=== PATIENT | male | born 1965 | race Caucasian/White ===

== ENCOUNTER 2017-04-20 16:00 | Inpatient (IN) | payer SELFPAY ==
[2017-04-20] VITALS (7 sets, daily range): BP systolic 123–165; BP diastolic 46–101
[~2017-04-20] VITALS: Ht 177.8 cm; Wt 87.2 kg
[~2017-04-20 16:00] MED LIST: AMIT100T PO; AMOX1TAB61 PO; ATOR20TA PO; Aspirin PO; CARV25TA2 PO; CLOP75TA57 PO; CYCL10TA2 PO; FLEXERIL; GABA-586 PO; GLIM4TAB2 PO; HYDR-2161 PO; HYDR-2680 PO; MORP30TA83 PO; OLME1TAB29 PO; PRED-220 PO; PREG75CA PO; ROPI2TAB4 PO; SITA100T PO; SITA1TAB7 PO; TEMA30CA PO; TIZA4TAB PO; TRAZ150T49 PO
[2017-04-20 16:25] LABS: BASO % 0 % (0-3); EOS % 0 % (0-3); HEMATOCRIT 44.8 % (39.0-53.0); LYMPH # 1.1 x10^3/uL (1.0-4.8); LYMPH % 14 % (24-48); MEAN CORPUSCULAR HEMOGLOBIN 29 pg (25-35); MEAN CORPUSCULAR HGB CONC 33 g/dL (31-37); MEAN CORPUSCULAR VOLUME 85 fL (79-100); MONO % 5 % (0-9); NEUT % 80 % (31-73); PLATELET COUNT 252 x10^3/uL (140-400); RED BLOOD COUNT 5.25 x10^6/uL (4.30-5.70); WHITE BLOOD COUNT 7.9 x10^3/uL (4.0-11.0)
[2017-04-20 16:35] LABS: PROTHROMBIN TIME PATIENT 12.8 SEC (11.7-14.0)
[2017-04-20] MEDS: NITROGLYCERIN SUBLINGUAL 0.4 MG BOTTLE OF 25. SL PRN ×2 (16:42→16:57)
[2017-04-20] MEDS: MORPHINE SULFATE 4 MG/ML DISP.SYRIN. IV/SQ PRN ×2 (16:43→17:30)
[2017-04-20] MEDS ORDERED: ASPIRIN 325 MG TABLET PO ONE (16:45)
[2017-04-20 16:56] LABS: ALBUMIN 2.8 g/dL (3.4-5.0); ALBUMIN/GLOBULIN RATIO 0.7 (1.0-1.7); CALCIUM 8.8 mg/dL (8.5-10.1); CREATININE 1.6 mg/dL (0.7-1.3); MAGNESIUM 1.9 mg/dL (1.8-2.4); POTASSIUM 3.8 mmol/L (3.5-5.1); TOTAL BILIRUBIN 0.4 mg/dL (0.2-1.0); TOTAL PROTEIN 6.9 g/dL (6.4-8.2)
--- NOTE | 2017-04-20 16:58 | RAD ---
Head CT without contrast History:Severe hypertension, headache for a month Technique: Noncontrast CT imaging was acquired of the head. [facility] Compliance Statement: One or more of the following individualized dose reduction techniques were utilized for this examination: 1. Automated exposure control 2. Adjustment of the mA and/or kV according to patient size 3. Use of iterative reconstruction technique Comparison: None Findings: The ventricles, sulci, and cisterns are within normal limits in size and configuration. There is old lacunar infarct left basal ganglia extending to harris radiata. There is no significant mass-effect, midline shift, or abnormal extra-axial fluid collection. There is no evidence of acute parenchymal or extraaxial hemorrhage. The visualized paranasal sinuses and mastoid air cells are aerated. No significant osseous abnormality is identified. Impression: 1. No acute intracranial hemorrhage is identified. 2. There is old lacunar infarct of the left basal ganglia extending to the harris radiata.
[2017-04-20] MEDS ORDERED: INSULIN REGULAR VIAL 150 UNIT in 0.9 % SODIUM CHLORIDE 150ML 150 ML IV PRN (17:30)
[2017-04-20] MEDS ORDERED: NITROGLYCERIN SUBLINGUAL 0.4 MG BOTTLE OF 25. SL PRN (17:45)
[2017-04-20] MEDS ORDERED: POTASSIUM CHLORIDE 20 MEQ TABLET.ER. PO PRN ×2 (17:45)
[2017-04-20] MEDS ORDERED: ONDANSETRON PF 4 MG/2 ML VIAL. IV PRN (17:45)
[2017-04-20] MEDS ORDERED: MORPHINE SULFATE 2 MG/ML DISP.SYRIN. IV PRN (17:45)
[2017-04-20] MEDS ORDERED: POTASSIUM CHLORIDE 20 MEQ TABLET.ER. PO ONE (18:00)
[2017-04-20] MEDS ORDERED: IV NORMAL SALINE 1000ML BAG 1,000 ML IV SCH ×2 (18:00→19:00)
--- NOTE | 2017-04-20 18:24 | PHYS DOC ---
Past Medical History Past Medical History: Arthritis, CHF, Diabetes-Type II, Hypertension Additional Past Medical Histor: HERNIATED DISC IN BACK, Past Surgical History: Tonsillectomy, Other Additional Past Surgical Histo: ANKLE Alcohol Use: None Drug Use: None Adult General Chief Complaint Chief Complaint: CHEST WALL PAIN HPI HPI Patient is a 51 year old male who presents with chest pain. The patient reports onset of symptoms about 1 month ago, has had intermittent chest pain with exertion, most recent onset today just prior to arrival here. Pain is pressure like, substernal, radiates to right shoulder. Reports associated shortness of breath, denies nausea or diaphoresis. Denies fevers/chills, cough , lower extremity pain/swelling. Denies headache, extremity numbness/weakness. He has history of hypertension & diabetes, unable to afford prescription medications for the past 2 weeks per the patient. He has history of CAD s/p multiple cardiac stents. He does not currently follow with a PCP. Flyer Maker is Dr. Erwin. Review of Systems Review of Systems Constitutional: Denies fever or chills Eyes: Denies change in visual acuity HENT: Denies nasal congestion or sore throat Respiratory: Denies cough or shortness of breath Cardiovascular: Reports chest pain, denies edema GI: Denies abdominal pain, nausea, vomiting, bloody stools or diarrhea : Denies dysuria or hematuria Musculoskeletal: Denies back pain or joint pain Integument: Denies rash or skin lesions Neurologic: Denies headache, focal weakness or sensory changes All other systems were reviewed and found to be within normal limits, except as documented in this note. Current Medications Current Medications Current Medications Medications (Trade) Dose Ordered Sig/Jerri Start Time Stop Time Status Last Admin Dose Admin Aspirin (Vibha Aspirin) 325 mg 1X ONCE 04/20/17 16:45 04/20/17 16:46 DC 04/20/17 16:42 325 MG Morphine Sulfate 4 mg PRN Q15MIN PRN 04/20/17 16:30 04/21/17 16:29 04/20/17 17:30 4 MG Nicardipine HCl 50 mg/Sodium Chloride 270 ml @ 0 mls/hr CONT PRN 04/20/17 16:45 04/20/17 16:52 5 MLS/HR Nitroglycerin (Nitrostat) 0.4 mg PRN Q5MIN PRN 04/20/17 16:30 04/20/17 16:57 0.4 MG Allergies Allergies Allergies Coded Allergies Type Severity Reaction Last Updated Verified No Known Drug Allergies 07/22/14 No Physical Exam Physical Exam Constitutional: Well developed, well nourished, no acute distress, non-toxic appearance. HENT: Normocephalic, atraumatic, bilateral external ears normal, oropharynx moist, nose normal. Eyes: PERRLA, EOMI, conjunctiva normal, no discharge. Neck: supple, no stridor. Cardiovascular: RRR, no murmurs, no edema. Lungs & Thorax: LCTAB, no wheezing, no respiratory distress. Abdomen: soft, nontender, nondistended. Skin: Warm, dry, no erythema, no rash. Back: No tenderness. Extremities: No tenderness, no edema. no calf tenderness or swelling. Neurologic: Alert and oriented X 3, CN2-12 grossly intact, symmetric strength/ sensation to upper & lower extremities, no focal deficits noted. Psychologic: Affect normal, judgement normal, mood normal. Current Patient Data Vital Signs Vital Signs Date Time Temp Pulse Resp B/P (MAP) Pulse Ox O2 Delivery O2 Flow Rate FiO2 04/20/17 17:12 Room Air 04/20/17 16:57 95 213/127 04/20/17 16:05 97.7 16 99 97.7 Lab Values Laboratory Tests Test 04/20/17 16:00 White Blood Count 7.9 x10^3/uL (4.0-11.0) Red Blood Count 5.25 x10^6/uL (4.30-5.70) Hemoglobin 15.0 g/dL (13.0-17.5) Hematocrit 44.8 % (39.0-53.0) Mean Corpuscular Volume 85 fL (79-100) Mean Corpuscular Hemoglobin 29 pg (25-35) Mean Corpuscular Hemoglobin Concent 33 g/dL (31-37) Red Cell Distribution Width 14.0 % (11.5-14.5) Platelet Count 252 x10^3/uL (140-400) Neutrophils (%) (Auto) 80 % (31-73) H Lymphocytes (%) (Auto) 14 % (24-48) L Monocytes (%) (Auto) 5 % (0-9) Eosinophils (%) (Auto) 0 % (0-3) Basophils (%) (Auto) 0 % (0-3) Neutrophils # (Auto) 6.4 x10^3uL (1.8-7.7) Lymphocytes # (Auto) 1.1 x10^3/uL (1.0-4.8) Monocytes # (Auto) 0.4 x10^3/uL (0.0-1.1) Eosinophils # (Auto) 0.0 x10^3/uL (0.0-0.7) Basophils # (Auto) 0.0 x10^3/uL (0.0-0.2) Prothrombin Time 12.8 SEC (11.7-14.0) Prothrombin Time INR 1.0 (0.8-1.1) PTT 24 SEC (24-38) Sodium Level 126 mmol/L (136-145) L Potassium Level 3.8 mmol/L (3.5-5.1) Chloride Level 91 mmol/L (98-107) L Carbon Dioxide Level 25 mmol/L (21-32) Anion Gap 10 (6-14) Blood Urea Nitrogen 23 mg/dL (8-26) Creatinine 1.6 mg/dL (0.7-1.3) H Estimated GFR (Cockcroft-Gault) 46.0 BUN/Creatinine Ratio 14 (6-20) Glucose Level 806 mg/dL (70-99) *H Calcium Level 8.8 mg/dL (8.5-10.1) Magnesium Level 1.9 mg/dL (1.8-2.4) Total Bilirubin 0.4 mg/dL (0.2-1.0) Aspartate Amino Transferase (AST) 12 U/L (15-37) L Alanine Aminotransferase (ALT) 16 U/L (16-63) Alkaline Phosphatase 210 U/L (46-116) H Troponin I Quantitative 0.023 ng/mL (0.000-0.055) CB-Rxp-E-Type Natriuretic Peptide 1430 pg/mL (0-124) H Total Protein 6.9 g/dL (6.4-8.2) Albumin 2.8 g/dL (3.4-5.0) L Albumin/Globulin Ratio 0.7 (1.0-1.7) L Laboratory Tests 04/20/17 16:00 Laboratory Tests 04/20/17 16:00 EKG EKG interpreted by me: 1625: NSR rate 96, ST elevation in leads V1-V2 without reciprocal changes, normal intervals, no ectopy. this does appear changed from previous dated 03/03/2015. interpreted by me: 1806: sinus tachycardia rate 107, slight ST elevation in V1 -V2 less impressive than in previous EKG, Q waves in V1-V2, T wave inversions in 1 & aVL without ST depression, normal intervals, no ectopy. Radiology/Procedures Radiology/Procedures PROCEDURE: CT HEAD WO CONTRAST Head CT without contrast History:Severe hypertension, headache for a month Technique: Noncontrast CT imaging was acquired of the head. [facility] Compliance Statement: One or more of the following individualized dose reduction techniques were utilized for this examination: 1. Automated exposure control 2. Adjustment of the mA and/or kV according to patient size 3. Use of iterative reconstruction technique Comparison: None Findings: The ventricles, sulci, and cisterns are within normal limits in size and configuration. There is old lacunar infarct left basal ganglia extending to harris radiata. There is no significant mass-effect, midline shift, or abnormal extra-axial fluid collection. There is no evidence of acute parenchymal or extraaxial hemorrhage. The visualized paranasal sinuses and mastoid air cells are aerated. No significant osseous abnormality is identified. Impression: 1. No acute intracranial hemorrhage is identified. 2. There is old lacunar infarct of the left basal ganglia extending to the harris radiata. DICTATED and SIGNED BY: ALEM BRICEÑO MD DATE: 04/20/17 1652 CXR, portable: interpreted by me: [] Course & Med Decision Making Course & Med Decision Making Pertinent Labs and Imaging studies reviewed. (See chart for details) The patient presents with chest pain. Noted upon arrival to have significantly elevated blood pressure of 260s/150s. Repeat was persistently elevated. Initiated cardene drip. Obtained labs, EKG, CXR, head CT. He had ST elevation in leads V1-V2 without reciprocal changes, discussed briefly with Dr. Cedeño who recommends no need for emergent intervention. Gave aspirin upon arrival as well as morphine for pain. Blood pressure improving on cardene drip, EKG repeated, no significant change & appears improved. He is hyperglycemic with blood glucose of 800, not DKA. Recommend admission to the hospital for further treatment. The patient agrees with plan of care. Discussed with Dr. Chacon who agrees to admit to inpatient status, agrees with initiation of insulin drip for now to manage hyperosmolar hyperglycemia. Potassium is being administered orally due to NS shortage, corresponded with pharmacist to ensure that he will continue to receive appropriate repletion orally as he remains on insulin drip. Consult to Dr. Cedeño of cardiology. The patient is admitted in critical condition. Critical care time: 40 minutes Dragon Disclaimer Dragon Disclaimer This electronic medical record was generated, in whole or in part, using a voice recognition dictation system. Departure Departure Impression: Primary Impression: Severe hypertension Additional Impressions: Chest pain Hyperosmolar non-ketotic state in patient with type 2 diabetes mellitus Acute renal failure Disposition: ADMITTED INPATIENT Admitting Physician: Radha Chacon Condition: CRITICAL Referrals: UNKNOWN PCP NAME (PCP) Problem Qualifiers RICHARD HERNANDEZ MD Apr 20, 2017 18:24
[2017-04-20 18:34] LABS: BACTERIA,URINE 0 /HPF (0-FEW); BILIRUBIN,URINE NEGATIVE (NEG); GLUCOSE,URINE >=1000 mg/dL (NEG); NITRITE,URINE NEGATIVE (NEG); PH,URINE 5.5; PROTEIN,URINE 100 mg/dL (NEG-TRACE); RBC,URINE OCC /HPF (0-2); UROBILINOGEN,URINE 0.2 mg/dL (0.2 mg/dL); WBC,URINE 0 /HPF (0-4)
[2017-04-20] MEDS ORDERED: IV DEXTROSE 5 %-0.45 % NACL 1,000 ML IV SCH (19:00)
[2017-04-20] MEDS ORDERED: INSULIN ASPART 300 UNITS/3 ML INSULN.PEN SQ ONE (19:30)
[2017-04-20] MEDS ORDERED: DEXTROSE 50% 25 GM / 50ML DISP.SYRIN. IV PRN (19:30)
--- NOTE | 2017-04-20 19:38 | HP ---
ADMIT DATE: 04/20/2017 CHIEF COMPLAINT: Chest pain. HISTORY OF PRESENT ILLNESS: The patient is a pleasant middle-aged male who has hypertension and congestive heart failure. He has a 25% ejection fraction. He is also a diabetic. 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 He has not been able to afford his meds now. He presents with chest pain. He has got pressures into the 230 range systolically. I discussed the case with the ER physician. We are going to admit the patient and consult Cardiology and get his glucose down. He will be going to the ICU. PAST MEDICAL HISTORY: Hypertension, CHF with a 25% ejection fraction, diabetes. ALLERGIES: None. FAMILY HISTORY: Coronary artery disease. 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 MEDICATIONS: Reviewed. REVIEW OF SYSTEMS: GENERAL: No history of weight change, weakness or fevers. SKIN: No bruising, hair changes or rashes. EYES: No blurred, double or loss of vision. NOSE AND THROAT: No history of nosebleeds, hoarseness or sore throat. HEART: No history of palpitations, chest pain or shortness of breath on exertion. LUNGS: Denies cough, hemoptysis, wheezing or shortness of breath. GASTROINTESTINAL: Denies changes in appetite, nausea, vomiting, diarrhea or constipation. GENITOURINARY: No history of frequency, urgency, hesitancy or nocturia. NEUROLOGIC: Denies history of numbness, tingling, tremor or weakness. PSYCHIATRIC: No history of panic, anxiety or depression. ENDOCRINE: No history of heat or cold intolerance, polyuria or polydipsia. EXTREMITIES: Denies muscle weakness, joint pain, pain on walking or stiffness. PHYSICAL EXAMINATION: VITAL SIGNS: Temperature afebrile, pulse 92, respirations 18, blood pressure down to 182/95. GENERAL: He is alert, cooperative in the ER. HEART: Normal S1, S2 with a soft S3. LUNGS: Slight crackles. ABDOMEN: Soft, positive bowel sounds. EXTREMITIES: Trace edema. SKIN: No rashes. ENDOCRINE: No thyromegaly. LYMPHATICS: No cervical nodes. HEMATOPOIETIC: No bruising. LABORATORY DATA: Troponin is 0. Glucose is 800. ASSESSMENT AND PLAN: Hyperglycemic hyperosmolar state with chest pain and severe hypertension with hypertensive emergency. The patient is being admitted. We will start insulin ip, gentle IV fluids. Continue home medicines, p.r.n. antihypertensives. Consult Cardiology. LES ZHAO DO DR: DOROTHEA/jose JOB#: [id number] / [id number]
[2017-04-20] MEDS: CYCLOBENZAPRINE 10 MG TABLET. PO SCH (19:47)
[2017-04-20] MEDS: GABAPENTIN 300 MG CAPSULE. PO SCH (19:47)
[2017-04-20] MEDS: HYDROcodone/APAP 10/325 1 TAB TABLET PO PRN (19:47)
[2017-04-20] MEDS: INSULIN DETEMIR 300 UNITS/3 ML INSULN.PEN. SQ SCH (19:51)
[2017-04-20] MEDS ORDERED: CARVEDILOL 12.5 MG TABLET. PO ONE (20:00)
[2017-04-20] MEDS ORDERED: ATORVASTATIN CALCIUM 20 MG TABLET PO SCH (21:00)
[2017-04-20] MEDS ORDERED: FLU VACC QS2017-18 (36MOS+)/PF 0.5 ML SYRINGE. VAX IM ONE (21:00)
[2017-04-21] VITALS (25 sets, daily range): BP systolic 112–178; BP diastolic 64–112
[2017-04-21] MEDS: HYDROcodone/APAP 10/325 1 TAB TABLET PO PRN ×3 (04:10→17:31)
[2017-04-21 05:44] LABS: BASO % 1 % (0-3); EOS % 1 % (0-3); HEMATOCRIT 44.2 % (39.0-53.0); HEMOGLOBIN 14.9 g/dL (13.0-17.5); LYMPH # 2.5 x10^3/uL (1.0-4.8); LYMPH % 23 % (24-48); MEAN CORPUSCULAR HEMOGLOBIN 28 pg (25-35); MEAN CORPUSCULAR HGB CONC 34 g/dL (31-37); MEAN CORPUSCULAR VOLUME 84 fL (79-100); MONO % 6 % (0-9); NEUT % 70 % (31-73); PLATELET COUNT 263 x10^3/uL (140-400); RED BLOOD COUNT 5.29 x10^6/uL (4.30-5.70); RED CELL DISTRIBUTION WIDTH 13.9 % (11.5-14.5); WHITE BLOOD COUNT 10.9 x10^3/uL (4.0-11.0)
[2017-04-21] MEDS: ACETAMINOPHEN 325 MG TABLET. PO PRN ×2 (06:13→12:51)
--- NOTE | 2017-04-21 06:22 | EKG ---
[facility] [address] [place] [address] Test Date: 2017-04-20 Test Time: 16:25:45 Pat Name: BERTRAND COLMENARES Department: Room: 103 1 Gender: M [employer]ress: : 1965 Requested By: RICHARD HERNANDEZ Order Number: [id number] Reading MD: Nick Goodwin Measurements Intervals [place] Rate: 96 P: 18 RI: 166 QRS: -17 QRSD: 90 T: 91 QT: 368 QTc: 466 Interpretive Statements SINUS RHYTHM LEFT ATRIAL ABNORMALITY LEFTWARD AXIS CONSIDER LEFT VENTRICULAR HYPERTROPHY QRS(T) CONTOUR ABNORMALITY CONSISTENT WITH ANTEROSEPTAL INFARCT PROBABLY OLD T ABNORMALITY IN HIGH LATERAL LEADS ABNORMAL ECG RI6.01 Compared to ECG 03/03/2015 11:04:54 Myocardial infarct finding now present Prolonged QT interval no longer presentT-wave abnormality still present Electronically Signed On 04-21-2017 17:38:06 MULTIPLE SLIDE OPERATOR by Nick Goodwin
--- NOTE | 2017-04-21 06:23 | EKG ---
[address] [place] [address] Test Date: 2017-04-20 Test Time: 18:06:20 Pat Name: BERTRAND COLMENARES Department: Room: 103 1 Gender: M [employer]: : 1965 Requested By: RICHARD HERNANDEZ Order Number: [id number] Reading MD: Nick Goodwin Measurements Intervals [place] Rate: 107 P: -136 [place]: 98 QRS: -18 QRSD: 88 T: 84 QT: 344 QTc: 465 Interpretive Statements LEFTWARD AXIS CONSIDER LEFT VENTRICULAR HYPERTROPHY QRS(T) CONTOUR ABNORMALITY CONSISTENT WITH ANTEROSEPTAL INFARCT PROBABLY OLD T ABNORMALITY IN HIGH LATERAL LEADS ABNORMAL ECG RI6.01 Compared to ECG 03/03/2015 11:04:54 Myocardial infarct finding now present Sinus rhythm Atrial abnormality no longer present Prolonged QT interval no longer presentT-wave abnormality still present Electronically Signed On 04-21-2017 17:39:44 CHIEF AIRPORT GUIDE by Nick Goodwin
--- NOTE | 2017-04-21 07:18 | RAD ---
Chest x-ray Indication: Chest pain Technique: Portable AP upright chest x-ray Comparison: Previous study from 02/28/2015 Findings: Heart is normal in size. Ectatic thoracic aorta. Lungs are clear. No pneumothorax or pleural effusion. Visualized bony thorax is within normal limits. Impression: No acute cardiac pulmonary process.
[2017-04-21] MEDS ORDERED: INSULIN ASPART 300 UNITS/3 ML INSULN.PEN SQ SCH (07:30)
[2017-04-21] MEDS ORDERED: ASPIRIN 325 MG TABLET PO SCH (08:00)
[2017-04-21] MEDS ORDERED: MAGNESIUM SULFATE 4GM 100 ML IV SCH (09:00)
[2017-04-21] MEDS: CLOPIDOGREL BISULFATE 75 MG TABLET PO SCH (09:30)
[2017-04-21] MEDS: CYCLOBENZAPRINE 10 MG TABLET. PO SCH ×3 (09:31→20:19)
[2017-04-21] MEDS: GABAPENTIN 300 MG CAPSULE. PO SCH ×3 (09:31→20:17)
[2017-04-21] MEDS: CARVEDILOL 12.5 MG TABLET. PO SCH ×2 (09:31→17:30)
[2017-04-21] MEDS: INSULIN ASPART 300 UNITS/3 ML INSULN.PEN SQ SCH ×3 (09:34→17:36)
--- NOTE | 2017-04-21 10:54 | PDOC2 ---
[employer] 04/21/17 1054: CARDIAC CONSULT DATE OF CONSULT Date of Consult DATE: 04/21/17 TIME: 10:40 REASON FOR CONSULT Reason for Consult: CP, hypertensive urgency REFERRING PHYSICIAN Referring Physician: mEi SOURCE Source: Chart review, Patient HISTORY OF PRESENT ILLNESS HISTORY OF PRESENT ILLNESS This is a 51 yo male admitted for complains of chest pain. He is known for CAD with PCI/BMS to LAD and RCA in 2014. He was then noted with cardiomyopathy with EF at 25% which significantly improved per MPI on 12/2015 with EF at 50%. His last follow up was last yr and has failed to follow up since then. Over a month ago he has lost his job due to company bankruptcy and low his health insurance. Presently he lives with his son and is on financial constraints thus has stopped all his meds except for his pain meds. Reports that in the last month he has been having intermittent bilateral throbbing AMATO but no visual or auditory impairment and no unilateral weakness, no dizziness or passing out. Also has had nausea intermittent vomiting and diarrhea. He checked his BP one time about 2 weeks ago and noted that his SBP was in the 200s and decided not to see any body since he could not afford it. He does have chronic pain issues involving his spine/shoulders and legs. He has been having intermittent sharp midsternal pain and nonradiating and also has been having occasional heartburn. Denies any orthopnea. No significant SOA at rest. Occasional REYNOLDS. Positive for occasional PND with positive for PHYLLIS and has not been using any CPAP since he could not tolerate it. Presently he does not have symptoms and his BP is better controlled. His BG was also uncontrolled which is now better. PAST MEDICAL HISTORY Cardiovascular: CAD, CHF, HTN, Hyperlipidemia, Other (cardiomyopathy; LVEF 25% by echo 07/23/2014) Pulmonary: Other (PHYLLIS) CENTRAL NERVOUS SYSTEM: Other (RLS) GI: GERD Psych: Depression Musculoskeletal: Osteoarthritis, Other (chronic pain syndrome) Renal/: Chronic renal insuff Endocrine: Diabetes (2) Dermatology: Eczema PAST SURGICAL HISTORY Past Surgical History Tonsillectomy, Other (left ankle), PCI/BMS to LAD/RCA FAMILY HISTORY Family History: Coronary Artery Disease (Brother in his 40s) SOCIAL HISTORY Smoke: No ALCOHOL: none Drugs: None Lives: with Family CURRENT MEDICATIONS CURRENT MEDICATIONS Current Medications Medications (Trade) Dose Ordered Sig/Jerri Route PRN Reason Start Time Stop Time Status Last Admin Dose Admin Aspirin (Vibha Aspirin) 325 mg 1X ONCE PO 04/20/17 16:45 04/20/17 16:46 DC 04/20/17 16:42 Morphine Sulfate 4 mg PRN Q15MIN PRN IV/SQ PAIN GREATER THAN 3/10 04/20/17 16:30 04/20/17 17:47 DC 04/20/17 17:30 Nitroglycerin (Nitrostat) 0.4 mg PRN Q5MIN PRN SL CHEST PAIN 04/20/17 16:30 04/20/17 17:48 DC 04/20/17 16:57 Nicardipine HCl 50 mg/Sodium Chloride 270 ml @ 0 mls/hr CONT PRN IV SEE I/O RECORD 04/20/17 16:45 04/20/17 16:52 Sodium Chloride 1,000 ml @ 1,000 mls/hr Q1H IV 04/20/17 18:00 04/20/17 18:59 DC 04/20/17 17:56 Insulin Human Regular 150 unit/ Sodium Chloride 151.5 ml @ 0 mls/hr CONT PRN PRN IV PER PROTOCOL 04/20/17 17:30 04/20/17 19:10 DC 04/20/17 17:59 Potassium Chloride (Klor-Con) 40 meq 1X ONCE PO 04/20/17 18:00 04/20/17 18:01 DC 04/20/17 17:56 Acetaminophen (Tylenol) 650 mg PRN Q4HRS PRN PO FEVER 04/20/17 17:45 04/21/17 17:44 04/21/17 06:13 Insulin Detemir (Levemir) 15 units QHS SQ 04/20/17 21:00 04/20/17 19:51 Insulin Aspart (NovoLOG) 15 units 1X ONCE SQ 04/20/17 19:30 04/20/17 19:31 DC 04/20/17 19:50 Insulin Aspart (NovoLOG) 0-9 UNITS TIDWMEALS SQ 04/21/17 08:00 04/21/17 09:34 Atorvastatin Calcium (Lipitor) 20 mg QHS PO 04/20/17 21:00 04/20/17 19:47 Clopidogrel Bisulfate (Plavix) 75 mg DAILYWBKFT PO 04/21/17 08:00 04/21/17 09:30 Cyclobenzaprine HCl (Flexeril) 10 mg TID PO 04/20/17 21:00 04/21/17 09:31 Acetaminophen/ Hydrocodone Bitart (Lortab 10/325) 1 tab PRN Q6HRS PRN PO PAIN 04/20/17 19:30 04/21/17 09:40 Carvedilol (Coreg) 25 mg BIDWMEALS PO 04/21/17 08:00 04/21/17 09:31 Gabapentin (Neurontin) 300 mg TID PO 04/20/17 21:00 04/21/17 09:31 Aspirin (Vibha Aspirin) 325 mg DAILYWBKFT PO 04/21/17 08:00 04/21/17 09:30 Carvedilol (Coreg) 25 mg 1X ONCE PO 04/20/17 20:00 04/20/17 20:01 DC 04/20/17 19:48 ALLERGIES ALLERGIES: Coded Allergies: No Known Drug Allergies (Unverified , 07/22/14) ROS Review of System 14 point ROS evaluated with pertinent positives noted per HPI PHYSICAL EXAM General: Alert, Oriented X3, Cooperative, No acute distress HEENT: Atraumatic, Mucous membr. moist/pink Lungs: Clear to auscultation, Normal air movement Heart: Regular rate (SR), Normal S1, Normal S2, Other (2/6 systolic murmur to LLS border) Abdomen: Soft, No tenderness Extremities: No cyanosis, Other (trace LE edema) Skin: No breakdown, No significant lesion Neuro: Normal speech, Sensation intact Psych/Mental Status: Mental status NL, Mood NL MUSCULOSKELETAL: Osteoarthritic changes both hands VITALS VITALS Vital Signs Date Time Temp Pulse Resp B/P (MAP) Pulse Ox O2 Delivery O2 Flow Rate FiO2 04/21/17 09:31 99 163/93 04/21/17 08:00 Room Air 04/21/17 06:05 18 100 04/21/17 04:00 97.8 97.8 LABS Lab: Laboratory Tests Test 04/20/17 16:00 04/20/17 16:40 04/20/17 18:59 04/20/17 20:02 White Blood Count 7.9 x10^3/uL (4.0-11.0) Red Blood Count 5.25 x10^6/uL (4.30-5.70) Hemoglobin 15.0 g/dL (13.0-17.5) Hematocrit 44.8 % (39.0-53.0) Mean Corpuscular Volume 85 fL (79-100) Mean Corpuscular Hemoglobin 29 pg (25-35) Mean Corpuscular Hemoglobin Concent 33 g/dL (31-37) Red Cell Distribution Width 14.0 % (11.5-14.5) Platelet Count 252 x10^3/uL (140-400) Neutrophils (%) (Auto) 80 % (31-73) Lymphocytes (%) (Auto) 14 % (24-48) Monocytes (%) (Auto) 5 % (0-9) Eosinophils (%) (Auto) 0 % (0-3) Basophils (%) (Auto) 0 % (0-3) Neutrophils # (Auto) 6.4 x10^3uL (1.8-7.7) Lymphocytes # (Auto) 1.1 x10^3/uL (1.0-4.8) Monocytes # (Auto) 0.4 x10^3/uL (0.0-1.1) Eosinophils # (Auto) 0.0 x10^3/uL (0.0-0.7) Basophils # (Auto) 0.0 x10^3/uL (0.0-0.2) Prothrombin Time 12.8 SEC (11.7-14.0) Prothromb Time International Ratio 1.0 (0.8-1.1) Activated Partial Thromboplast Time 24 SEC (24-38) Sodium Level 126 mmol/L (136-145) Potassium Level 3.8 mmol/L (3.5-5.1) Chloride Level 91 mmol/L (98-107) Carbon Dioxide Level 25 mmol/L (21-32) Anion Gap 10 (6-14) Blood Urea Nitrogen 23 mg/dL (8-26) Creatinine 1.6 mg/dL (0.7-1.3) Estimated GFR (Cockcroft-Gault) 46.0 BUN/Creatinine Ratio 14 (6-20) Glucose Level 806 mg/dL (70-99) Serum Osmolality 312 mOsm/Kg (279-304) Calcium Level 8.8 mg/dL (8.5-10.1) Magnesium Level 1.9 mg/dL (1.8-2.4) Total Bilirubin 0.4 mg/dL (0.2-1.0) Aspartate Amino Transf (AST/SGOT) 12 U/L (15-37) Alanine Aminotransferase (ALT/SGPT) 16 U/L (16-63) Alkaline Phosphatase 210 U/L (46-116) Troponin I Quantitative 0.023 ng/mL (0.000-0.055) SA-Jjf-E-Type Natriuretic Peptide 1430 pg/mL (0-124) Total Protein 6.9 g/dL (6.4-8.2) Albumin 2.8 g/dL (3.4-5.0) Albumin/Globulin Ratio 0.7 (1.0-1.7) Urine Collection Type Unknown Urine Color Yellow Urine Clarity Clear Urine pH 5.5 Urine Specific Lutz >=1.030 Urine Protein 100 mg/dL (NEG-TRACE) Urine Glucose (UA) >=1000 mg/dL (NEG) Urine Ketones (Stick) Negative mg/dL (NEG) Urine Blood Trace (NEG) Urine Nitrite Negative (NEG) Urine Bilirubin Negative (NEG) Urine Urobilinogen Dipstick 0.2 mg/dL (0.2 mg/dL) Urine Leukocyte Esterase Negative (NEG) Urine RBC Occ /HPF (0-2) Urine WBC 0 /HPF (0-4) Urine Bacteria 0 /HPF (0-FEW) Glucose (Fingerstick) 541 mg/dL (70-99) 449 mg/dL (70-99) Test 04/20/17 21:02 04/20/17 23:45 04/20/17 23:53 04/21/17 04:57 Glucose (Fingerstick) 326 mg/dL (70-99) 175 mg/dL (70-99) 217 mg/dL (70-99) Troponin I Quantitative 0.560 ng/mL (0.000-0.055) Test 04/21/17 05:25 04/21/17 09:27 White Blood Count 10.9 x10^3/uL (4.0-11.0) Red Blood Count 5.29 x10^6/uL (4.30-5.70) Hemoglobin 14.9 g/dL (13.0-17.5) Hematocrit 44.2 % (39.0-53.0) Mean Corpuscular Volume 84 fL (79-100) Mean Corpuscular Hemoglobin 28 pg (25-35) Mean Corpuscular Hemoglobin Concent 34 g/dL (31-37) Red Cell Distribution Width 13.9 % (11.5-14.5) Platelet Count 263 x10^3/uL (140-400) Neutrophils (%) (Auto) 70 % (31-73) Lymphocytes (%) (Auto) 23 % (24-48) Monocytes (%) (Auto) 6 % (0-9) Eosinophils (%) (Auto) 1 % (0-3) Basophils (%) (Auto) 1 % (0-3) Neutrophils # (Auto) 7.6 x10^3uL (1.8-7.7) Lymphocytes # (Auto) 2.5 x10^3/uL (1.0-4.8) Monocytes # (Auto) 0.6 x10^3/uL (0.0-1.1) Eosinophils # (Auto) 0.1 x10^3/uL (0.0-0.7) Basophils # (Auto) 0.0 x10^3/uL (0.0-0.2) Troponin I Quantitative 0.612 ng/mL (0.000-0.055) Glucose (Fingerstick) 265 mg/dL (70-99) ECHOCARDIOGRAM ECHOCARDIOGRAM <Conclusion> Left ventricle systolic function is moderately to severely impaired. The Ejection Fraction is 25-30%. There is global hypokinesis of the left ventricle. No significant valvular disease. DATE: 11/21/15 1547 STRESS TEST STRESS TEST Conclusion 1. Regadenoson cardioisotope stress test did not show any evidence of ischemia or infarct. 2. Low normal left ventricular systolic function with ejection fraction calculated at 50%. 3. Low risk for cardiac events. DATE: 01/24/16 1141 HEART CATH HEART CATH <Conclusion> 2 vessel coronary artery disease. Successful stenting of the mid LAD decreasing a 90% lesion to 0%. Successful stenting of a distal right coronary artery lesion of 85% to 0% and a mid right coronary lesion of 80% to 0%. Bare-metal stents were placed. DATE: 03/08/15 1729 ASSESSMENT/PLAN ASSESSMENT/PLAN 1. Malignant HTN: better 2. Ucontrolled DM2: x1 BG in the 800s. off insulin drip. Per PCP 3. LEATHA on CKD 3 with hyponatremia: prerenal. Notable for intermittent diarrhea and vomiting. Hyperglycemia contributing 4. NSTEMI: Troponin at 0.6. EKG SR without acute changes. Likely Type 2 from multiple factors above. 5. Atypical CP: likely from GI and uncontrolled HTN 6. Hx of NICM: with EF of 25%: prior MPI 12/2015 with EF at 50% 7. Chronic systolic/diastolic CHF: compensated 8. HLP 9. Noncompliance: due to financial constraints. Unmedicated for >1 month. 10. Chronic pain syndrome with chronic opioid use Recommendations 1. Restart DAPT 2. DC cardene. Restart home BP meds. Will hold ACEi and add imdur for now till BMP is noted. Hydralazine IV PRN 3. BMP, Mg, TSH, lipids 4. Optimize BG control per PCP. Push PO fluids 5. TTE. Ischemic workup tomorrow. 6. Will tailor made DC meds with [facility] 4$ Rx. Problems: JERROD VILLALOBOS MD 04/21/17 1628: CARDIAC CONSULT ALLERGIES ALLERGIES: Coded Allergies: No Known Drug Allergies (Unverified , 07/22/14) ASSESSMENT/PLAN ASSESSMENT/PLAN Patient seen and examined. Agree with [employer]'s assessment and plan. Malignant hypertension secondary to noncompliance. Blood pressure better controlled since admission. Titrate oral ant- hypertensives and wean Cardene off. Chest pain with atypical features. Troponin level slightly elevated, probably secondary to subendocardial ischemia from uncontrolled hypertension. 2-D echo showed LVEF 40-45%. Plan for Lexiscan nuclear stress test tomorrow to rule out ischemia. dining services director consultation for help with medications. Thank you for your consultation. Problems: GABRIEL CHOPRA APRN Apr 21, 2017 10:54 JERROD VILLALOBOS MD Apr 21, 2017 16:28
[2017-04-21] MEDS ORDERED: hydrALAZINE 20 MG/ML VIAL. IVP PRN (11:15)
[2017-04-21 11:47] LABS: CREATININE 1.2 mg/dL (0.7-1.3); GFR 64.1; MAGNESIUM 1.9 mg/dL (1.8-2.4); POTASSIUM 3.6 mmol/L (3.5-5.1)
[2017-04-21 11:49] LABS: CHOLESTEROL/HDL RATIO 7.5
--- NOTE | 2017-04-21 12:28 | CARD ---
APPROVED REPORT EXAM: Two-dimensional and M-mode echocardiogram with Doppler and color Doppler. Other Information Quality : Good INDICATION Chest Pain 2D DIMENSIONS RVDd3.0 (2.9-3.5cm)Left Atrium(2D)3.7 (1.6-4.0cm) IVSd1.2 (0.7-1.1cm)Aortic Root(2D)3.5 (2.0-3.7cm) LVDd5.1 (3.9-5.9cm)LVOT Diameter2.3 (1.8-2.4cm) PWd1.6 (0.7-1.1cm)LVDs3.9 (2.5-4.0cm) FS (%) 24.4 %SV59.8 ml LVEF(%)48.2 (>50%) Aortic Valve AoV Peak Santi.128.7cm/sAoV VTI17.6cm AO Peak GR.6.6mmHgLVOT VTI 10.07cm AO Mean GR.4mmHgAVA (VTI)2.50cm2 Mitral Valve MV E Ekcaejam45.1cm/sMV DECEL [id number] MV A Wxithhii539.8cm/sE/A Ratio0.6 TDI Lateral E' P. V5.41cm/sMedial E' P. V3.54cm/s E/Lateral E'12.8E/Medial E'19.5 Tricuspid Valve TR P. Njcdgarl174ho/sRAP [id number] TR Peak Gr.[id number] Pulmonary Vein S1 Yljhouhj89.9cm/sS2 Qpqaxtbv22.64cm/s D2 Ptddcyet61.6cm/s LEFT VENTRICLE The left ventricle is normal size. There is mild to moderate concentric left ventricular hypertrophy. Left ventricle systolic function is mildly impaired. The Ejection Fraction is 40-45%. There is mild to moderate global hypokinesis. Transmitral Doppler flow pattern is Grade I-abnormal relaxation patte rn. RIGHT VENTRICLE The right ventricle is normal size. The right ventricular systolic function is normal. ATRIA The left atrium size is normal. The right atrium size is normal. The interatrial septum is intact wit h no evidence for an atrial septal defect or patent foramen ovale as noted on 2-D or Doppler imaging. AORTIC VALVE The aortic valve is normal in structure and function. Doppler and Color Flow revealed no significant aortic regurgitation. There is no significant aortic valvular stenosis. MITRAL VALVE The mitral valve is normal in structure and function. There is no evidence of mitral valve prolapse. There is no mitral valve stenosis. Doppler and Color Flow revealed no mitral valve regurgitation note d. TRICUSPID VALVE The tricuspid valve is normal in structure and function. Doppler and Color Flow revealed trace tricus pid regurgitation. The PA pressure was estimated at 23 mmHg. There is no tricuspid valve stenosis. PULMONIC VALVE Doppler and Color Flow revealed no pulmonic valvular regurgitation. There is no pulmonic valvular debra nosis. GREAT VESSELS The aortic root is normal in size. The ascending aorta is normal in size. The IVC is normal in size a nd collapses >50% with inspiration. PERICARDIAL EFFUSION There is no evidence of significant pericardial effusion. Critical Notification Critical Value: No <Conclusion> Left ventricle systolic function is mildly impaired. The Ejection Fraction is 40-45%. There is mild to moderate global hypokinesis.
[2017-04-21] MEDS: ISOSORBIDE MONONITRATE ER 30 MG TAB.ER.24H PO SCH (12:51)
[2017-04-21] MEDS: ASPIRIN ENTERIC COATED 81 MG TABLET.DR. PO SCH (12:52)
--- NOTE | 2017-04-21 13:53 | PDOC ---
PROGRESS NOTES Chief Complaint Chief Complaint Chest pain Arthritis CHF Diabetes-Type II Hypertension Herniated disc History of Present Illness History of Present Illness Pt was seen and examined in the ICU. Vitals Vitals Vital Signs Date Time Temp Pulse Resp B/P (MAP) Pulse Ox O2 Delivery O2 Flow Rate FiO2 04/21/17 13:00 88 18 148/102 (117) 99 Room Air 04/21/17 08:00 97.6 97.6 Physical Exam General: Alert, Cooperative, No acute distress Labs LABS Laboratory Tests Test 04/20/17 16:00 04/20/17 16:40 04/20/17 18:40 04/20/17 18:59 White Blood Count 7.9 x10^3/uL (4.0-11.0) Red Blood Count 5.25 x10^6/uL (4.30-5.70) Hemoglobin 15.0 g/dL (13.0-17.5) Hematocrit 44.8 % (39.0-53.0) Mean Corpuscular Volume 85 fL (79-100) Mean Corpuscular Hemoglobin 29 pg (25-35) Mean Corpuscular Hemoglobin Concent 33 g/dL (31-37) Red Cell Distribution Width 14.0 % (11.5-14.5) Platelet Count 252 x10^3/uL (140-400) Neutrophils (%) (Auto) 80 % (31-73) Lymphocytes (%) (Auto) 14 % (24-48) Monocytes (%) (Auto) 5 % (0-9) Eosinophils (%) (Auto) 0 % (0-3) Basophils (%) (Auto) 0 % (0-3) Neutrophils # (Auto) 6.4 x10^3uL (1.8-7.7) Lymphocytes # (Auto) 1.1 x10^3/uL (1.0-4.8) Monocytes # (Auto) 0.4 x10^3/uL (0.0-1.1) Eosinophils # (Auto) 0.0 x10^3/uL (0.0-0.7) Basophils # (Auto) 0.0 x10^3/uL (0.0-0.2) Prothrombin Time 12.8 SEC (11.7-14.0) Prothromb Time International Ratio 1.0 (0.8-1.1) Activated Partial Thromboplast Time 24 SEC (24-38) Sodium Level 126 mmol/L (136-145) Potassium Level 3.8 mmol/L (3.5-5.1) Chloride Level 91 mmol/L (98-107) Carbon Dioxide Level 25 mmol/L (21-32) Anion Gap 10 (6-14) Blood Urea Nitrogen 23 mg/dL (8-26) Creatinine 1.6 mg/dL (0.7-1.3) Estimated GFR (Cockcroft-Gault) 46.0 BUN/Creatinine Ratio 14 (6-20) Glucose Level 806 mg/dL (70-99) Serum Osmolality 312 mOsm/Kg (279-304) Calcium Level 8.8 mg/dL (8.5-10.1) Magnesium Level 1.9 mg/dL (1.8-2.4) Total Bilirubin 0.4 mg/dL (0.2-1.0) Aspartate Amino Transf (AST/SGOT) 12 U/L (15-37) Alanine Aminotransferase (ALT/SGPT) 16 U/L (16-63) Alkaline Phosphatase 210 U/L (46-116) Troponin I Quantitative 0.023 ng/mL (0.000-0.055) NR-Cxc-G-Type Natriuretic Peptide 1430 pg/mL (0-124) Total Protein 6.9 g/dL (6.4-8.2) Albumin 2.8 g/dL (3.4-5.0) Albumin/Globulin Ratio 0.7 (1.0-1.7) Urine Collection Type Unknown Urine Color Yellow Urine Clarity Clear Urine pH 5.5 Urine Specific [place] >=1.030 Urine Protein 100 mg/dL (NEG-TRACE) Urine Glucose (UA) >=1000 mg/dL (NEG) Urine Ketones (Stick) Negative mg/dL (NEG) Urine Blood Trace (NEG) Urine Nitrite Negative (NEG) Urine Bilirubin Negative (NEG) Urine Urobilinogen Dipstick 0.2 mg/dL (0.2 mg/dL) Urine Leukocyte Esterase Negative (NEG) Urine RBC Occ /HPF (0-2) Urine WBC 0 /HPF (0-4) Urine Bacteria 0 /HPF (0-FEW) Nasal Screen MRSA (PCR) Negative (Negative) Glucose (Fingerstick) 541 mg/dL (70-99) Test 04/20/17 20:02 04/20/17 21:02 04/20/17 23:45 04/20/17 23:53 Glucose (Fingerstick) 449 mg/dL (70-99) 326 mg/dL (70-99) 175 mg/dL (70-99) Troponin I Quantitative 0.560 ng/mL (0.000-0.055) Test 04/21/17 04:57 04/21/17 05:25 04/21/17 09:27 04/21/17 12:57 Glucose (Fingerstick) 217 mg/dL (70-99) 265 mg/dL (70-99) 267 mg/dL (70-99) White Blood Count 10.9 x10^3/uL (4.0-11.0) Red Blood Count 5.29 x10^6/uL (4.30-5.70) Hemoglobin 14.9 g/dL (13.0-17.5) Hematocrit 44.2 % (39.0-53.0) Mean Corpuscular Volume 84 fL (79-100) Mean Corpuscular Hemoglobin 28 pg (25-35) Mean Corpuscular Hemoglobin Concent 34 g/dL (31-37) Red Cell Distribution Width 13.9 % (11.5-14.5) Platelet Count 263 x10^3/uL (140-400) Neutrophils (%) (Auto) 70 % (31-73) Lymphocytes (%) (Auto) 23 % (24-48) Monocytes (%) (Auto) 6 % (0-9) Eosinophils (%) (Auto) 1 % (0-3) Basophils (%) (Auto) 1 % (0-3) Neutrophils # (Auto) 7.6 x10^3uL (1.8-7.7) Lymphocytes # (Auto) 2.5 x10^3/uL (1.0-4.8) Monocytes # (Auto) 0.6 x10^3/uL (0.0-1.1) Eosinophils # (Auto) 0.1 x10^3/uL (0.0-0.7) Basophils # (Auto) 0.0 x10^3/uL (0.0-0.2) Sodium Level 135 mmol/L (136-145) Potassium Level 3.6 mmol/L (3.5-5.1) Chloride Level 101 mmol/L (98-107) Carbon Dioxide Level 22 mmol/L (21-32) Anion Gap 12 (6-14) Blood Urea Nitrogen 21 mg/dL (8-26) Creatinine 1.2 mg/dL (0.7-1.3) Estimated GFR (Cockcroft-Gault) 64.1 Glucose Level 218 mg/dL (70-99) Calcium Level 9.0 mg/dL (8.5-10.1) Magnesium Level 1.9 mg/dL (1.8-2.4) Troponin I Quantitative 0.612 ng/mL (0.000-0.055) Triglycerides Level 465 mg/dL (0-150) Cholesterol Level 338 mg/dL (0-200) LDL Cholesterol, Calculated 200 mg/dL (0-100) VLDL Cholesterol, Calculated 93 mg/dL (0-40) Non-HDL Cholesterol Calculated 293 mg/dL (0-129) HDL Cholesterol 45 mg/dL (40-60) Cholesterol/HDL Ratio 7.5 Thyroid Stimulating Hormone (TSH) 0.477 uIU/mL (0.358-3.74) Assessment and Plan Assessmemt and Plan Problems Medical Problems: (1) Acute renal failure Status: Acute (2) Chest pain Status: Acute (3) Hyperosmolar non-ketotic state in patient with type 2 diabetes mellitus Status: Acute (4) Hypertensive emergency without congestive heart failure Status: Acute (5) Severe hypertension Status: Acute ASSESSMENT: Chest pain Arthritis CHF Diabetes-Type II Hypertension Herniated disc PLAN: Pt on ICU monitoring Pt on Cardene drip Continue IV fluids Continue sliding scale insulin Frequent accu cheks Appreciate input from subspecialists Problems: Comment Review of Relevant I have reviewed the following items gavin (where applicable) has been applied. Labs Laboratory Tests Test 04/20/17 16:00 04/20/17 16:40 04/20/17 18:40 04/20/17 18:59 White Blood Count 7.9 x10^3/uL (4.0-11.0) Red Blood Count 5.25 x10^6/uL (4.30-5.70) Hemoglobin 15.0 g/dL (13.0-17.5) Hematocrit 44.8 % (39.0-53.0) Mean Corpuscular Volume 85 fL (79-100) Mean Corpuscular Hemoglobin 29 pg (25-35) Mean Corpuscular Hemoglobin Concent 33 g/dL (31-37) Red Cell Distribution Width 14.0 % (11.5-14.5) Platelet Count 252 x10^3/uL (140-400) Neutrophils (%) (Auto) 80 % (31-73) Lymphocytes (%) (Auto) 14 % (24-48) Monocytes (%) (Auto) 5 % (0-9) Eosinophils (%) (Auto) 0 % (0-3) Basophils (%) (Auto) 0 % (0-3) Neutrophils # (Auto) 6.4 x10^3uL (1.8-7.7) Lymphocytes # (Auto) 1.1 x10^3/uL (1.0-4.8) Monocytes # (Auto) 0.4 x10^3/uL (0.0-1.1) Eosinophils # (Auto) 0.0 x10^3/uL (0.0-0.7) Basophils # (Auto) 0.0 x10^3/uL (0.0-0.2) Prothrombin Time 12.8 SEC (11.7-14.0) Prothromb Time International Ratio 1.0 (0.8-1.1) Activated Partial Thromboplast Time 24 SEC (24-38) Sodium Level 126 mmol/L (136-145) Potassium Level 3.8 mmol/L (3.5-5.1) Chloride Level 91 mmol/L (98-107) Carbon Dioxide Level 25 mmol/L (21-32) Anion Gap 10 (6-14) Blood Urea Nitrogen 23 mg/dL (8-26) Creatinine 1.6 mg/dL (0.7-1.3) Estimated GFR (Cockcroft-Gault) 46.0 BUN/Creatinine Ratio 14 (6-20) Glucose Level 806 mg/dL (70-99) Serum Osmolality 312 mOsm/Kg (279-304) Calcium Level 8.8 mg/dL (8.5-10.1) Magnesium Level 1.9 mg/dL (1.8-2.4) Total Bilirubin 0.4 mg/dL (0.2-1.0) Aspartate Amino Transf (AST/SGOT) 12 U/L (15-37) Alanine Aminotransferase (ALT/SGPT) 16 U/L (16-63) Alkaline Phosphatase 210 U/L (46-116) Troponin I Quantitative 0.023 ng/mL (0.000-0.055) EA-Roa-D-Type Natriuretic Peptide 1430 pg/mL (0-124) Total Protein 6.9 g/dL (6.4-8.2) Albumin 2.8 g/dL (3.4-5.0) Albumin/Globulin Ratio 0.7 (1.0-1.7) Urine Collection Type Unknown Urine Color Yellow Urine Clarity Clear Urine pH 5.5 Urine Specific [place] >=1.030 Urine Protein 100 mg/dL (NEG-TRACE) Urine Glucose (UA) >=1000 mg/dL (NEG) Urine Ketones (Stick) Negative mg/dL (NEG) Urine Blood Trace (NEG) Urine Nitrite Negative (NEG) Urine Bilirubin Negative (NEG) Urine Urobilinogen Dipstick 0.2 mg/dL (0.2 mg/dL) Urine Leukocyte Esterase Negative (NEG) Urine RBC Occ /HPF (0-2) Urine WBC 0 /HPF (0-4) Urine Bacteria 0 /HPF (0-FEW) Nasal Screen MRSA (PCR) Negative (Negative) Glucose (Fingerstick) 541 mg/dL (70-99) Test 04/20/17 20:02 04/20/17 21:02 04/20/17 23:45 04/20/17 23:53 Glucose (Fingerstick) 449 mg/dL (70-99) 326 mg/dL (70-99) 175 mg/dL (70-99) Troponin I Quantitative 0.560 ng/mL (0.000-0.055) Test 04/21/17 04:57 04/21/17 05:25 04/21/17 09:27 04/21/17 12:57 Glucose (Fingerstick) 217 mg/dL (70-99) 265 mg/dL (70-99) 267 mg/dL (70-99) White Blood Count 10.9 x10^3/uL (4.0-11.0) Red Blood Count 5.29 x10^6/uL (4.30-5.70) Hemoglobin 14.9 g/dL (13.0-17.5) Hematocrit 44.2 % (39.0-53.0) Mean Corpuscular Volume 84 fL (79-100) Mean Corpuscular Hemoglobin 28 pg (25-35) Mean Corpuscular Hemoglobin Concent 34 g/dL (31-37) Red Cell Distribution Width 13.9 % (11.5-14.5) Platelet Count 263 x10^3/uL (140-400) Neutrophils (%) (Auto) 70 % (31-73) Lymphocytes (%) (Auto) 23 % (24-48) Monocytes (%) (Auto) 6 % (0-9) Eosinophils (%) (Auto) 1 % (0-3) Basophils (%) (Auto) 1 % (0-3) Neutrophils # (Auto) 7.6 x10^3uL (1.8-7.7) Lymphocytes # (Auto) 2.5 x10^3/uL (1.0-4.8) Monocytes # (Auto) 0.6 x10^3/uL (0.0-1.1) Eosinophils # (Auto) 0.1 x10^3/uL (0.0-0.7) Basophils # (Auto) 0.0 x10^3/uL (0.0-0.2) Sodium Level 135 mmol/L (136-145) Potassium Level 3.6 mmol/L (3.5-5.1) Chloride Level 101 mmol/L (98-107) Carbon Dioxide Level 22 mmol/L (21-32) Anion Gap 12 (6-14) Blood Urea Nitrogen 21 mg/dL (8-26) Creatinine 1.2 mg/dL (0.7-1.3) Estimated GFR (Cockcroft-Gault) 64.1 Glucose Level 218 mg/dL (70-99) Calcium Level 9.0 mg/dL (8.5-10.1) Magnesium Level 1.9 mg/dL (1.8-2.4) Troponin I Quantitative 0.612 ng/mL (0.000-0.055) Triglycerides Level 465 mg/dL (0-150) Cholesterol Level 338 mg/dL (0-200) LDL Cholesterol, Calculated 200 mg/dL (0-100) VLDL Cholesterol, Calculated 93 mg/dL (0-40) Non-HDL Cholesterol Calculated 293 mg/dL (0-129) HDL Cholesterol 45 mg/dL (40-60) Cholesterol/HDL Ratio 7.5 Thyroid Stimulating Hormone (TSH) 0.477 uIU/mL (0.358-3.74) Laboratory Tests Test 04/20/17 16:00 04/20/17 16:40 04/20/17 18:40 04/20/17 18:59 White Blood Count 7.9 x10^3/uL (4.0-11.0) Red Blood Count 5.25 x10^6/uL (4.30-5.70) Hemoglobin 15.0 g/dL (13.0-17.5) Hematocrit 44.8 % (39.0-53.0) Mean Corpuscular Volume 85 fL (79-100) Mean Corpuscular Hemoglobin 29 pg (25-35) Mean Corpuscular Hemoglobin Concent 33 g/dL (31-37) Red Cell Distribution Width 14.0 % (11.5-14.5) Platelet Count 252 x10^3/uL (140-400) Neutrophils (%) (Auto) 80 % (31-73) Lymphocytes (%) (Auto) 14 % (24-48) Monocytes (%) (Auto) 5 % (0-9) Eosinophils (%) (Auto) 0 % (0-3) Basophils (%) (Auto) 0 % (0-3) Neutrophils # (Auto) 6.4 x10^3uL (1.8-7.7) Lymphocytes # (Auto) 1.1 x10^3/uL (1.0-4.8) Monocytes # (Auto) 0.4 x10^3/uL (0.0-1.1) Eosinophils # (Auto) 0.0 x10^3/uL (0.0-0.7) Basophils # (Auto) 0.0 x10^3/uL (0.0-0.2) Prothrombin Time 12.8 SEC (11.7-14.0) Prothromb Time International Ratio 1.0 (0.8-1.1) Activated Partial Thromboplast Time 24 SEC (24-38) Sodium Level 126 mmol/L (136-145) Potassium Level 3.8 mmol/L (3.5-5.1) Chloride Level 91 mmol/L (98-107) Carbon Dioxide Level 25 mmol/L (21-32) Anion Gap 10 (6-14) Blood Urea Nitrogen 23 mg/dL (8-26) Creatinine 1.6 mg/dL (0.7-1.3) Estimated GFR (Cockcroft-Gault) 46.0 BUN/Creatinine Ratio 14 (6-20) Glucose Level 806 mg/dL (70-99) Serum Osmolality 312 mOsm/Kg (279-304) Calcium Level 8.8 mg/dL (8.5-10.1) Magnesium Level 1.9 mg/dL (1.8-2.4) Total Bilirubin 0.4 mg/dL (0.2-1.0) Aspartate Amino Transf (AST/SGOT) 12 U/L (15-37) Alanine Aminotransferase (ALT/SGPT) 16 U/L (16-63) Alkaline Phosphatase 210 U/L (46-116) Troponin I Quantitative 0.023 ng/mL (0.000-0.055) JZ-Wxj-D-Type Natriuretic Peptide 1430 pg/mL (0-124) Total Protein 6.9 g/dL (6.4-8.2) Albumin 2.8 g/dL (3.4-5.0) Albumin/Globulin Ratio 0.7 (1.0-1.7) Urine Collection Type Unknown Urine Color Yellow Urine Clarity Clear Urine pH 5.5 Urine Specific [place] >=1.030 Urine Protein 100 mg/dL (NEG-TRACE) Urine Glucose (UA) >=1000 mg/dL (NEG) Urine Ketones (Stick) Negative mg/dL (NEG) Urine Blood Trace (NEG) Urine Nitrite Negative (NEG) Urine Bilirubin Negative (NEG) Urine Urobilinogen Dipstick 0.2 mg/dL (0.2 mg/dL) Urine Leukocyte Esterase Negative (NEG) Urine RBC Occ /HPF (0-2) Urine WBC 0 /HPF (0-4) Urine Bacteria 0 /HPF (0-FEW) Nasal Screen MRSA (PCR) Negative (Negative) Glucose (Fingerstick) 541 mg/dL (70-99) Test 04/20/17 20:02 04/20/17 21:02 04/20/17 23:45 04/20/17 23:53 Glucose (Fingerstick) 449 mg/dL (70-99) 326 mg/dL (70-99) 175 mg/dL (70-99) Troponin I Quantitative 0.560 ng/mL (0.000-0.055) Test 04/21/17 04:57 04/21/17 05:25 04/21/17 09:27 04/21/17 12:57 Glucose (Fingerstick) 217 mg/dL (70-99) 265 mg/dL (70-99) 267 mg/dL (70-99) White Blood Count 10.9 x10^3/uL (4.0-11.0) Red Blood Count 5.29 x10^6/uL (4.30-5.70) Hemoglobin 14.9 g/dL (13.0-17.5) Hematocrit 44.2 % (39.0-53.0) Mean Corpuscular Volume 84 fL (79-100) Mean Corpuscular Hemoglobin 28 pg (25-35) Mean Corpuscular Hemoglobin Concent 34 g/dL (31-37) Red Cell Distribution Width 13.9 % (11.5-14.5) Platelet Count 263 x10^3/uL (140-400) Neutrophils (%) (Auto) 70 % (31-73) Lymphocytes (%) (Auto) 23 % (24-48) Monocytes (%) (Auto) 6 % (0-9) Eosinophils (%) (Auto) 1 % (0-3) Basophils (%) (Auto) 1 % (0-3) Neutrophils # (Auto) 7.6 x10^3uL (1.8-7.7) Lymphocytes # (Auto) 2.5 x10^3/uL (1.0-4.8) Monocytes # (Auto) 0.6 x10^3/uL (0.0-1.1) Eosinophils # (Auto) 0.1 x10^3/uL (0.0-0.7) Basophils # (Auto) 0.0 x10^3/uL (0.0-0.2) Sodium Level 135 mmol/L (136-145) Potassium Level 3.6 mmol/L (3.5-5.1) Chloride Level 101 mmol/L (98-107) Carbon Dioxide Level 22 mmol/L (21-32) Anion Gap 12 (6-14) Blood Urea Nitrogen 21 mg/dL (8-26) Creatinine 1.2 mg/dL (0.7-1.3) Estimated GFR (Cockcroft-Gault) 64.1 Glucose Level 218 mg/dL (70-99) Calcium Level 9.0 mg/dL (8.5-10.1) Magnesium Level 1.9 mg/dL (1.8-2.4) Troponin I Quantitative 0.612 ng/mL (0.000-0.055) Triglycerides Level 465 mg/dL (0-150) Cholesterol Level 338 mg/dL (0-200) LDL Cholesterol, Calculated 200 mg/dL (0-100) VLDL Cholesterol, Calculated 93 mg/dL (0-40) Non-HDL Cholesterol Calculated 293 mg/dL (0-129) HDL Cholesterol 45 mg/dL (40-60) Cholesterol/HDL Ratio 7.5 Thyroid Stimulating Hormone (TSH) 0.477 uIU/mL (0.358-3.74) Medications Current Medications Aspirin (Vibha Aspirin) 325 mg 1X ONCE PO Last administered on 04/20/17 16: 42; Start 04/20/17 at 16:45; Stop 04/20/17 at 16:46; Status DC Morphine Sulfate 4 mg PRN Q15MIN PRN IV/SQ PAIN GREATER THAN 3/10 Last administered on 04/20/17 17:30; Start 04/20/17 at 16:30; Stop 04/20/17 at 17 :47; Status DC Nitroglycerin (Nitrostat) 0.4 mg PRN Q5MIN PRN SL CHEST PAIN Last administered on 04/20/17 16:57; Start 04/20/17 at 16:30; Stop 04/20/17 at 17:48; Status DC Nicardipine HCl 50 mg/Sodium Chloride 270 ml @ 0 mls/hr CONT PRN IV SEE I/O RECORD Last administered on 04/20/17 16:52; Start 04/20/17 at 16:45; Stop at 11:13; Status DC Sodium Chloride 1,000 ml @ 1,000 mls/hr Q1H IV Last administered on 17:56; Start 04/20/17 at 18:00; Stop 04/20/17 at 18:59; Status DC Sodium Chloride 1,000 ml @ 250 mls/hr Q4H IV ; Start 04/20/17 at 19:00; Stop 04/20/17 at 19:10; Status DC Dextrose/Sodium Chloride 1,000 ml @ 250 mls/hr Q4H IV ; Start 04/20/17 at 19: 00; Stop 04/20/17 at 19:10; Status DC Insulin Human Regular 150 unit/ Sodium Chloride 151.5 ml @ 0 mls/hr CONT PRN PRN IV PER PROTOCOL Last administered on 04/20/17 17:59; Start 04/20/17 at 17 :30; Stop 04/20/17 at 19:10; Status DC Magnesium Sulfate/ Dextrose 100 ml @ 25 mls/hr DAILY IV ; Start 04/21/17 at 09 :00; Stop 04/21/17 at 09:00; Status DC Potassium Chloride (Klor-Con) 40 meq 1X ONCE PO Last administered on 17:56; Start 04/20/17 at 18:00; Stop 04/20/17 at 18:01; Status DC Potassium Chloride (Klor-Con) 20 meq PRN Q1HR PRN PO K level is 4 to 5 mEq/L; Start 04/20/17 at 17:45 Ondansetron HCl (Zofran) 4 mg PRN Q8HRS PRN IV NAUSEA/VOMITING; Start at 17:45; Stop 04/21/17 at 17:44 Morphine Sulfate 2 mg PRN Q2HR PRN IV PAIN; Start 04/20/17 at 17:45; Stop at 17:44 Acetaminophen (Tylenol) 650 mg PRN Q4HRS PRN PO FEVER Last administered on 12:51; Start 04/20/17 at 17:45; Stop 04/21/17 at 17:44 Nitroglycerin (Nitrostat) 0.4 mg PRN Q5MIN PRN SL CHEST PAIN; Start 04/20/17 at 17:45; Stop 04/21/17 at 17:44 Potassium Chloride (Klor-Con) 40 meq PRN Q1HR PRN PO K level is 3 to 3.9 mEq/L ; Start 04/20/17 at 17:45 Potassium Chloride (Klor-Con) 60 meq PRN Q1HR PRN PO K level < 3 mEq/L; Start 04/20/17 at 17:45 Insulin Aspart (NovoLOG) 15 units TIDAC SQ ; Start 04/21/17 at 07:30; Status Cancel Insulin Detemir (Levemir) 15 units QHS SQ Last administered on 04/20/17 19:51 ; Start 04/20/17 at 21:00 Influenza Virus Vaccine Quadrival (Fluarix Quad [id number] Syringe) 0.5 ml ONCE ONCE VAX IM Last administered on 04/21/17 12:55; Start 04/20/17 at 21:00; Stop 04/20/17 at 21:01; Status DC Insulin Aspart (NovoLOG) 15 units 1X ONCE SQ Last administered on 04/20/17 19:50; Start 04/20/17 at 19:30; Stop 04/20/17 at 19:31; Status DC Insulin Aspart (NovoLOG) 0-9 UNITS TIDWMEALS SQ Last administered on 13:02; Start 04/21/17 at 08:00 Dextrose (Dextrose 50%-Water Syringe) 12.5 gm PRN Q15MIN PRN IV SEE COMMENTS; Start 04/20/17 at 19:30 Atorvastatin Calcium (Lipitor) 20 mg QHS PO Last administered on 04/20/17 19: 47; Start 04/20/17 at 21:00; Stop 04/21/17 at 13:04; Status DC Clopidogrel Bisulfate (Plavix) 75 mg DAILYWBKFT PO Last administered on 09:30; Start 04/21/17 at 08:00 Cyclobenzaprine HCl (Flexeril) 10 mg TID PO Last administered on 04/21/17 09: 31; Start 04/20/17 at 21:00 Acetaminophen/ Hydrocodone Bitart (Lortab 10/325) 1 tab PRN Q6HRS PRN PO PAIN Last administered on 04/21/17 09:40; Start 04/20/17 at 19:30 Carvedilol (Coreg) 25 mg BIDWMEALS PO Last administered on 04/21/17 09:31; Start 04/21/17 at 08:00 Gabapentin (Neurontin) 300 mg TID PO Last administered on 04/21/17 09:31; Start 04/20/17 at 21:00 Aspirin (Vibha Aspirin) 325 mg DAILYWBKFT PO Last administered on 04/21/17 09 :30; Start 04/21/17 at 08:00; Stop 04/21/17 at 11:13; Status DC Carvedilol (Coreg) 25 mg 1X ONCE PO Last administered on 04/20/17 19:48; Start 04/20/17 at 20:00; Stop 04/20/17 at 20:01; Status DC Aspirin (Ecotrin) 81 mg DAILYWBKFT PO Last administered on 04/21/17 12:52; Start 04/21/17 at 11:30 Isosorbide Mononitrate (Imdur) 60 mg DAILY PO Last administered on 04/21/17 12:51; Start 04/21/17 at 11:30 Hydralazine HCl (Apresoline Inj) 10 mg PRN Q4HRS PRN IVP ELEVATED BP, SEE COMMENTS; Start 04/21/17 at 11:15 Atorvastatin Calcium (Lipitor) 80 mg QHS PO ; Start 04/21/17 at 21:00 Active Scripts Active Lipitor (Atorvastatin Calcium) 20 Mg Tablet 20 Mg PO QHS Plavix (Clopidogrel Bisulfate) 75 Mg Tablet 75 Mg PO DAILYWBKFT [Aspirin] 325 MG Tablet 325 Mg PO DAILYWBKFT Lortab 10-325 mg Tablet (Hydrocodone/Acetaminophen) 1 Each Tablet 1 Tab PO PRN Q6HRS PRN Januvia (Sitagliptin Phosphate) 100 Mg Tablet 1 Tab PO DAILY Glimepiride 4 Mg Tablet 1 Tab PO BID Reported Ms Contin (Morphine Sulfate) 30 Mg Tablet.er 1 Tab PO BID Temazepam 30 Mg Capsule 30 Mg PO HS PRN Carvedilol 25 Mg Tablet 25 Mg PO BIDWMEALS Cyclobenzaprine Hcl 10 Mg Tablet 1 Tab PO TID Prednisone 10 Mg Tablet 10 Mg PO DAILY Tribenzor 40-5-12.5 Mg Tablet (Olmesartan/Amlodipin/Hcthiazid) 1 Each Tablet 1 Each PO TID Lyrica (Pregabalin) 75 Mg Capsule 1 Cap PO BID Ropinirole Hcl 2 Mg Tablet 2 Mg PO QHS Neurontin (Gabapentin) 300 Mg Capsule 3 Cap PO TID Hydrocodone-Apap 10-300 (Hydrocodone Bit/Acetaminophen) 1 Each Tablet 2 Tab PO Q4HRS PRN Amitriptyline Hcl 100 Mg Tablet 1 Tab PO QHS Trazodone Hcl 150 Mg Tablet 1 Tab PO QHS Vitals/I & O Vital Sign - Last 24 Hours 04/20/17 04/20/17 04/20/17 04/20/17 16:05 16:40 16:42 16:43 Temp 97.7 97.7 Pulse 97 92 96 Resp 16 B/P (MAP) 267/153 (191) 239/130 (166) 239/130 Pulse Ox 99 O2 Delivery Room Air Room Air 04/20/17 04/20/17 04/20/17 04/20/17 16:52 16:57 16:57 17:02 Pulse 100 95 102 112 B/P (MAP) 213/127 (155) 213/127 215/131 (159) 174/106 (128) 04/20/17 04/20/17 04/20/17 04/20/17 17:07 17:12 17:12 17:17 Pulse 106 106 104 B/P (MAP) 192/106 (134) 188/111 (136) 190/114 (139) O2 Delivery Room Air 04/20/17 04/20/17 04/20/17 04/20/17 17:22 17:27 17:30 17:32 Pulse 104 105 112 B/P (MAP) 183/108 (133) 187/109 (135) 185/106 (132) O2 Delivery Room Air 04/20/17 04/20/17 04/20/17 04/20/17 17:37 17:42 17:47 17:52 Pulse 110 107 106 106 B/P (MAP) 182/104 (130) 186/96 (126) 178/98 (124) 178/93 (121) 04/20/17 04/20/17 04/20/17 04/20/17 17:57 18:02 18:07 18:12 Pulse 112 110 110 108 B/P (MAP) 167/89 (115) 176/99 (124) 177/96 (123) 180/97 (124) 04/20/17 04/20/17 04/20/17 04/20/17 18:17 18:22 18:27 19:03 Pulse 106 109 104 Resp 18 B/P (MAP) 182/97 (125) 196/99 (131) 193/93 (126) 149/91 (110) Pulse Ox 100 O2 Delivery Room Air 04/20/17 04/20/17 04/20/17 04/20/17 19:30 19:45 19:47 19:48 Pulse 74 Resp 18 B/P (MAP) 123/73 (90) 126/85 (99) 123/73 O2 Delivery Room Air 04/20/17 04/20/17 04/20/17 04/20/17 20:00 20:00 21:00 22:00 Temp 97.6 97.6 Pulse 90 98 82 Resp 18 18 18 B/P (MAP) 123/46 (71) 165/90 (115) 140/87 (104) Pulse Ox 100 100 99 O2 Delivery Room Air Room Air Room Air Room Air 04/20/17 04/20/17 04/21/17 04/21/17 23:07 23:54 00:00 01:00 Temp 97.9 97.9 Pulse 82 76 79 Resp 18 18 18 B/P (MAP) 149/101 (117) 164/94 (117) 159/93 (115) Pulse Ox 99 99 99 O2 Delivery Room Air Room Air Room Air Room Air 04/21/17 04/21/17 04/21/17 04/21/17 02:00 03:00 04:00 04:00 Temp 97.8 97.8 Pulse 79 79 80 Resp 18 18 18 B/P (MAP) 133/74 (93) 178/103 (128) 175/112 (133) Pulse Ox 100 100 100 O2 Delivery Room Air Room Air Room Air Room Air 04/21/17 04/21/17 04/21/17 04/21/17 04:10 04:15 04:30 05:15 Resp 18 18 B/P (MAP) 160/90 (113) 151/89 (109) O2 Delivery Room Air Room Air 04/21/17 04/21/17 04/21/17 04/21/17 06:05 07:00 08:00 08:00 Temp 97.6 97.6 Pulse 80 86 86 Resp 18 18 18 B/P (MAP) 149/91 (110) 152/82 (105) 156/94 (114) Pulse Ox 100 100 O2 Delivery Room Air Room Air Room Air Room Air 04/21/17 04/21/17 04/21/17 04/21/17 09:00 09:31 10:00 11:00 Pulse 90 99 88 88 Resp 16 16 18 B/P (MAP) 154/90 (111) 163/93 165/92 (116) 138/81 (100) Pulse Ox 99 99 O2 Delivery Room Air Room Air Room Air 04/21/17 04/21/17 04/21/17 04/21/17 12:00 12:00 12:51 13:00 Pulse 80 88 Resp 18 18 B/P (MAP) 112/64 (80) 148/102 148/102 (117) Pulse Ox 99 99 O2 Delivery Room Air Room Air Room Air Intake and Output 04/20/17 04/20/17 04/21/17 15:00 23:00 07:00 Intake Total 158 ml 616 ml Output Total 525 ml 700 ml Balance -367 ml -84 ml LES ZHAO III DO Apr 21, 2017 13:53
[2017-04-21] MEDS: LISINOPRIL 10 MG TABLET PO SCH (17:31)
[2017-04-21] MEDS: POTASSIUM CHLORIDE 20 MEQ TABLET.ER. PO PRN (20:18)
[2017-04-21] MEDS: ATORVASTATIN CALCIUM 40 MG TABLET. PO SCH (20:19)
[2017-04-21] MEDS: INSULIN DETEMIR 300 UNITS/3 ML INSULN.PEN. SQ SCH (20:30)
[2017-04-22] VITALS (13 sets, daily range): BP systolic 131–161; BP diastolic 68–98
[2017-04-22] MEDS: HYDROcodone/APAP 10/325 1 TAB TABLET PO PRN ×4 (04:05→21:06)
[2017-04-22 05:40] LABS: BASO # 0.1 x10^3/uL (0.0-0.2); BASO % 1 % (0-3); EOS % 1 % (0-3); HEMATOCRIT 41.2 % (39.0-53.0); HEMOGLOBIN 13.7 g/dL (13.0-17.5); LYMPH # 2.1 x10^3/uL (1.0-4.8); LYMPH % 24 % (24-48); MEAN CORPUSCULAR HEMOGLOBIN 28 pg (25-35); MEAN CORPUSCULAR HGB CONC 33 g/dL (31-37); MEAN CORPUSCULAR VOLUME 84 fL (79-100); MONO % 7 % (0-9); NEUT % 68 % (31-73); PLATELET COUNT 227 x10^3/uL (140-400); RED CELL DISTRIBUTION WIDTH 14.1 % (11.5-14.5); WHITE BLOOD COUNT 8.9 x10^3/uL (4.0-11.0)
[2017-04-22 05:54] LABS: CALCIUM 8.7 mg/dL (8.5-10.1); CREATININE 1.3 mg/dL (0.7-1.3); GFR 58.4; POTASSIUM 3.7 mmol/L (3.5-5.1)
[2017-04-22] MEDS ORDERED: REGADENOSON 0.4 MG/5 ML DISP.SYRIN. IV ONE (08:45)
[2017-04-22] MEDS: CYCLOBENZAPRINE 10 MG TABLET. PO SCH ×3 (08:59→21:06)
[2017-04-22] MEDS: GABAPENTIN 300 MG CAPSULE. PO SCH ×3 (08:59→21:06)
[2017-04-22] MEDS: INSULIN ASPART 300 UNITS/3 ML INSULN.PEN SQ SCH ×3 (11:21→17:38)
[2017-04-22] MEDS: LISINOPRIL 10 MG TABLET PO SCH (11:26)
[2017-04-22] MEDS: CARVEDILOL 12.5 MG TABLET. PO SCH ×2 (11:27→17:46)
[2017-04-22] MEDS: POTASSIUM CHLORIDE 20 MEQ TABLET.ER. PO PRN (11:28)
[2017-04-22] MEDS: ASPIRIN ENTERIC COATED 81 MG TABLET.DR. PO SCH (11:31)
[2017-04-22] MEDS: CLOPIDOGREL BISULFATE 75 MG TABLET PO SCH (11:34)
--- NOTE | 2017-04-22 13:07 | RAD ---
APPROVED REPORT Test Type: Pharmacological Stress Nurse/Tech: RYAN GARCIA Test Indications: CHEST PAIN Cardiac History: HTN, CAD, CARDIAC STENTS, SEE EHR Medications: SEE EHR Medical History: DIABETES, SEE EHR Resting ECG: SR Resting Heart Rate: 89 bpm Resting Blood Pressure: 137/84mmHg Pretest Chest Pain: Typical anginaNo chest pain Nurse/Tech Notes LUNG SOUNDS CLEAR, S1S2 WNL. Consent: The procedure was explained to the patient in lay terms. Informed consent was witnessed. Ricky eout was entered into Rapid Pathogen Screening. History and Stress Test performed by RT Jennifer (R) (N) Pharm. Details Pharmacologic stress testing was performed using 0.4mg per 5ml of regadenoson given intravenously ove r 7-10 seconds. Stress Symptoms NONE STATED. POST EXERCISE Reason for Termination: Infusion complete Max HR: 105 bpm Max Blood Pressure: 143/70mmHg Chest Pain: No. Arrhythmia: No. ST Change: No. INTERPRETATION Stress EKG Conclusion: No evidence of stress induced EKG changes. Imaging Protocol IMAGE PROTOCOL: Rest Tc-99m/stress Tc-99m 1 day Rest: Stress: Viability: Radiopharm.Tc99m ItbfzuzdgMe24g Sestamibi Dose10.8mCi 34.1mCi Img Date 04/22/2017 04/22/2017 Inj-Img [id number]. 60min. Rest Admin Site:IV - Left AntecubitalAdministrator:DESEAN Stern Stress Admin Site: IV - Left AntecubitalAdministrator: RT Jennifer (R)(N) STRESS DATA End Diast. Vol.195.0mlAv. Heart Rate92.0bpm End Syst. Vol.101.0mlCO Index BSA0.0L/min Myocardial Tpfd927.0gEject. Taqmujtl29.0% Stress Rates Pk. Fill Rate2.48EDV/secLVtime Pk. Fill 185.92msec Pk. Empty Rate2.53ESV/secLVtime Pk. Eject91.78msec 05/28 Pk. Fill1.25EDV/sec Stress Scores Regional WT3.00Summed WT34.00 Regional WM1.00Summed WM20.00 LV Perfusion The rest and stress images demonstrate normal perfusion. Wall Motion Mild global hypokinesis with an EF of 50%. LV Perf. Quant 17 Seg. SSS0.00 17 Seg. SRS2.00 17 Seg. SDS0.00 Stress Defect Extent (% LAD)0.00Rest Defect Extent (% LAD)0.00Rev. Defect Extent (% LAD)0.00 Stress Defect Extent (% LCX) 0.00Rest Defect Extent (% LCX)0.00Rev. Defect Extent (% LCX)0.00 Stress Defect Extent (% RCA)0.00Rest Defect Extent (% RCA)0.00Rev. Defect Extent (% RCA)0.00 Stress Defect Extent (% LORENZO)0.00Rest Defect Extent (% LORENZO)0.00Rev. Defect Extent (% LORENZO)0.00 Other Information Quality:Average Risk Assessment: Low-Moderate Risk Conclusion 1. No evidence of EKG changes to suggest ischemia with vasodilator testing. 2. Normal perfusion at stress/rest. 3. Mild LV dysfunction. EF 50% 4. Low to moderate risk for future CV events based on lower EF.
--- NOTE | 2017-04-22 13:15 | PDOC ---
ALINA JIMENEZ BUSINESS INTELLIGENCE CONSULTANT 04/22/17 1315: PROGRESS NOTES Subjective Subjective no chest pain, breathing easy, no palpitations. Objective Objective Vital Signs Date Time Temp Pulse Resp B/P (MAP) Pulse Ox O2 Delivery O2 Flow Rate FiO2 04/22/17 11:27 91 183/112 04/22/17 10:00 16 Room Air 04/22/17 08:00 98.2 99 98.2 Intake and Output 04/22/17 06:59 Intake Total 690 ml Output Total 1400 ml Balance -710 ml Intake Oral 690 ml Output Urine Total 1400 ml Physical Exam Abdomen: Normal bowel sounds, Soft, No tenderness Heart: Regular rate, Normal S1, Normal S2 Extremities: No cyanosis, Normal pulses General: Alert, Oriented X3, Cooperative Lungs: Clear to auscultation Neuro: Normal speech Psych/Mental Status: Mental status NL, Mood NL Assessment Assessment Problems Medical Problems: (1) Acute renal failure Status: Acute (2) Chest pain Status: Acute (3) Hyperosmolar non-ketotic state in patient with type 2 diabetes mellitus Status: Acute (4) Hypertensive emergency without congestive heart failure Status: Acute (5) Severe hypertension Status: Acute 1. accelerated hypertension - pressures improved on oral meds. up this am likely secondary to holding meds for nuclear study. resume po meds. PRN hydralazine as needed. IF pressure remains elevated, increase lisinopril. attempt to provide meds on $4 list as he has been unable to afford without insurance. case mgmt has been consults. 2. chest pain, atypical with history of prior PCI/stents - MPI normal. continue medical therapy and risk factor reduction. 3. elevated trop, - likely subendocardial due to malignant hypertension. normal perfusion by MPI. 4. mild systolic dysfunction - continue coreg and lisinopril. Comment Review of Relevant I have reviewed the following items gavin (where applicable) has been applied. Labs Laboratory Tests Test 04/20/17 16:00 04/20/17 16:40 04/20/17 18:40 04/20/17 18:59 White Blood Count 7.9 x10^3/uL (4.0-11.0) Red Blood Count 5.25 x10^6/uL (4.30-5.70) Hemoglobin 15.0 g/dL (13.0-17.5) Hematocrit 44.8 % (39.0-53.0) Mean Corpuscular Volume 85 fL (79-100) Mean Corpuscular Hemoglobin 29 pg (25-35) Mean Corpuscular Hemoglobin Concent 33 g/dL (31-37) Red Cell Distribution Width 14.0 % (11.5-14.5) Platelet Count 252 x10^3/uL (140-400) Neutrophils (%) (Auto) 80 % (31-73) Lymphocytes (%) (Auto) 14 % (24-48) Monocytes (%) (Auto) 5 % (0-9) Eosinophils (%) (Auto) 0 % (0-3) Basophils (%) (Auto) 0 % (0-3) Neutrophils # (Auto) 6.4 x10^3uL (1.8-7.7) Lymphocytes # (Auto) 1.1 x10^3/uL (1.0-4.8) Monocytes # (Auto) 0.4 x10^3/uL (0.0-1.1) Eosinophils # (Auto) 0.0 x10^3/uL (0.0-0.7) Basophils # (Auto) 0.0 x10^3/uL (0.0-0.2) Prothrombin Time 12.8 SEC (11.7-14.0) Prothromb Time International Ratio 1.0 (0.8-1.1) Activated Partial Thromboplast Time 24 SEC (24-38) Sodium Level 126 mmol/L (136-145) Potassium Level 3.8 mmol/L (3.5-5.1) Chloride Level 91 mmol/L (98-107) Carbon Dioxide Level 25 mmol/L (21-32) Anion Gap 10 (6-14) Blood Urea Nitrogen 23 mg/dL (8-26) Creatinine 1.6 mg/dL (0.7-1.3) Estimated GFR (Cockcroft-Gault) 46.0 BUN/Creatinine Ratio 14 (6-20) Glucose Level 806 mg/dL (70-99) Serum Osmolality 312 mOsm/Kg (279-304) Calcium Level 8.8 mg/dL (8.5-10.1) Magnesium Level 1.9 mg/dL (1.8-2.4) Total Bilirubin 0.4 mg/dL (0.2-1.0) Aspartate Amino Transf (AST/SGOT) 12 U/L (15-37) Alanine Aminotransferase (ALT/SGPT) 16 U/L (16-63) Alkaline Phosphatase 210 U/L (46-116) Troponin I Quantitative 0.023 ng/mL (0.000-0.055) UJ-Gxd-Q-Type Natriuretic Peptide 1430 pg/mL (0-124) Total Protein 6.9 g/dL (6.4-8.2) Albumin 2.8 g/dL (3.4-5.0) Albumin/Globulin Ratio 0.7 (1.0-1.7) Urine Collection Type Unknown Urine Color Yellow Urine Clarity Clear Urine pH 5.5 Urine Specific Karval >=1.030 Urine Protein 100 mg/dL (NEG-TRACE) Urine Glucose (UA) >=1000 mg/dL (NEG) Urine Ketones (Stick) Negative mg/dL (NEG) Urine Blood Trace (NEG) Urine Nitrite Negative (NEG) Urine Bilirubin Negative (NEG) Urine Urobilinogen Dipstick 0.2 mg/dL (0.2 mg/dL) Urine Leukocyte Esterase Negative (NEG) Urine RBC Occ /HPF (0-2) Urine WBC 0 /HPF (0-4) Urine Bacteria 0 /HPF (0-FEW) Nasal Screen MRSA (PCR) Negative (Negative) Glucose (Fingerstick) 541 mg/dL (70-99) Test 04/20/17 20:02 04/20/17 21:02 04/20/17 23:45 04/20/17 23:53 Glucose (Fingerstick) 449 mg/dL (70-99) 326 mg/dL (70-99) 175 mg/dL (70-99) Troponin I Quantitative 0.560 ng/mL (0.000-0.055) Test 04/21/17 04:57 04/21/17 05:25 04/21/17 09:27 04/21/17 12:57 Glucose (Fingerstick) 217 mg/dL (70-99) 265 mg/dL (70-99) 267 mg/dL (70-99) White Blood Count 10.9 x10^3/uL (4.0-11.0) Red Blood Count 5.29 x10^6/uL (4.30-5.70) Hemoglobin 14.9 g/dL (13.0-17.5) Hematocrit 44.2 % (39.0-53.0) Mean Corpuscular Volume 84 fL (79-100) Mean Corpuscular Hemoglobin 28 pg (25-35) Mean Corpuscular Hemoglobin Concent 34 g/dL (31-37) Red Cell Distribution Width 13.9 % (11.5-14.5) Platelet Count 263 x10^3/uL (140-400) Neutrophils (%) (Auto) 70 % (31-73) Lymphocytes (%) (Auto) 23 % (24-48) Monocytes (%) (Auto) 6 % (0-9) Eosinophils (%) (Auto) 1 % (0-3) Basophils (%) (Auto) 1 % (0-3) Neutrophils # (Auto) 7.6 x10^3uL (1.8-7.7) Lymphocytes # (Auto) 2.5 x10^3/uL (1.0-4.8) Monocytes # (Auto) 0.6 x10^3/uL (0.0-1.1) Eosinophils # (Auto) 0.1 x10^3/uL (0.0-0.7) Basophils # (Auto) 0.0 x10^3/uL (0.0-0.2) Sodium Level 135 mmol/L (136-145) Potassium Level 3.6 mmol/L (3.5-5.1) Chloride Level 101 mmol/L (98-107) Carbon Dioxide Level 22 mmol/L (21-32) Anion Gap 12 (6-14) Blood Urea Nitrogen 21 mg/dL (8-26) Creatinine 1.2 mg/dL (0.7-1.3) Estimated GFR (Cockcroft-Gault) 64.1 Glucose Level 218 mg/dL (70-99) Calcium Level 9.0 mg/dL (8.5-10.1) Magnesium Level 1.9 mg/dL (1.8-2.4) Troponin I Quantitative 0.612 ng/mL (0.000-0.055) Triglycerides Level 465 mg/dL (0-150) Cholesterol Level 338 mg/dL (0-200) LDL Cholesterol, Calculated 200 mg/dL (0-100) VLDL Cholesterol, Calculated 93 mg/dL (0-40) Non-HDL Cholesterol Calculated 293 mg/dL (0-129) HDL Cholesterol 45 mg/dL (40-60) Cholesterol/HDL Ratio 7.5 Thyroid Stimulating Hormone (TSH) 0.477 uIU/mL (0.358-3.74) Test 04/21/17 14:40 04/21/17 17:34 04/21/17 20:25 04/22/17 04:45 Troponin I Quantitative 0.416 ng/mL (0.000-0.055) Glucose (Fingerstick) 286 mg/dL (70-99) 329 mg/dL (70-99) White Blood Count 8.9 x10^3/uL (4.0-11.0) Red Blood Count 4.90 x10^6/uL (4.30-5.70) Hemoglobin 13.7 g/dL (13.0-17.5) Hematocrit 41.2 % (39.0-53.0) Mean Corpuscular Volume 84 fL (79-100) Mean Corpuscular Hemoglobin 28 pg (25-35) Mean Corpuscular Hemoglobin Concent 33 g/dL (31-37) Red Cell Distribution Width 14.1 % (11.5-14.5) Platelet Count 227 x10^3/uL (140-400) Neutrophils (%) (Auto) 68 % (31-73) Lymphocytes (%) (Auto) 24 % (24-48) Monocytes (%) (Auto) 7 % (0-9) Eosinophils (%) (Auto) 1 % (0-3) Basophils (%) (Auto) 1 % (0-3) Neutrophils # (Auto) 6.1 x10^3uL (1.8-7.7) Lymphocytes # (Auto) 2.1 x10^3/uL (1.0-4.8) Monocytes # (Auto) 0.6 x10^3/uL (0.0-1.1) Eosinophils # (Auto) 0.1 x10^3/uL (0.0-0.7) Basophils # (Auto) 0.1 x10^3/uL (0.0-0.2) Sodium Level 133 mmol/L (136-145) Potassium Level 3.7 mmol/L (3.5-5.1) Chloride Level 103 mmol/L (98-107) Carbon Dioxide Level 23 mmol/L (21-32) Anion Gap 7 (6-14) Blood Urea Nitrogen 23 mg/dL (8-26) Creatinine 1.3 mg/dL (0.7-1.3) Estimated GFR (Cockcroft-Gault) 58.4 Glucose Level 249 mg/dL (70-99) Calcium Level 8.7 mg/dL (8.5-10.1) Test 04/22/17 11:18 Glucose (Fingerstick) 264 mg/dL (70-99) Laboratory Tests Test 04/21/17 14:40 04/21/17 17:34 04/21/17 20:25 04/22/17 04:45 Troponin I Quantitative 0.416 ng/mL (0.000-0.055) Glucose (Fingerstick) 286 mg/dL (70-99) 329 mg/dL (70-99) White Blood Count 8.9 x10^3/uL (4.0-11.0) Red Blood Count 4.90 x10^6/uL (4.30-5.70) Hemoglobin 13.7 g/dL (13.0-17.5) Hematocrit 41.2 % (39.0-53.0) Mean Corpuscular Volume 84 fL (79-100) Mean Corpuscular Hemoglobin 28 pg (25-35) Mean Corpuscular Hemoglobin Concent 33 g/dL (31-37) Red Cell Distribution Width 14.1 % (11.5-14.5) Platelet Count 227 x10^3/uL (140-400) Neutrophils (%) (Auto) 68 % (31-73) Lymphocytes (%) (Auto) 24 % (24-48) Monocytes (%) (Auto) 7 % (0-9) Eosinophils (%) (Auto) 1 % (0-3) Basophils (%) (Auto) 1 % (0-3) Neutrophils # (Auto) 6.1 x10^3uL (1.8-7.7) Lymphocytes # (Auto) 2.1 x10^3/uL (1.0-4.8) Monocytes # (Auto) 0.6 x10^3/uL (0.0-1.1) Eosinophils # (Auto) 0.1 x10^3/uL (0.0-0.7) Basophils # (Auto) 0.1 x10^3/uL (0.0-0.2) Sodium Level 133 mmol/L (136-145) Potassium Level 3.7 mmol/L (3.5-5.1) Chloride Level 103 mmol/L (98-107) Carbon Dioxide Level 23 mmol/L (21-32) Anion Gap 7 (6-14) Blood Urea Nitrogen 23 mg/dL (8-26) Creatinine 1.3 mg/dL (0.7-1.3) Estimated GFR (Cockcroft-Gault) 58.4 Glucose Level 249 mg/dL (70-99) Calcium Level 8.7 mg/dL (8.5-10.1) Test 04/22/17 11:18 Glucose (Fingerstick) 264 mg/dL (70-99) Medications Current Medications Aspirin (Vibha Aspirin) 325 mg 1X ONCE PO Last administered on 04/20/17 16: 42; Start 04/20/17 at 16:45; Stop 04/20/17 at 16:46; Status DC Morphine Sulfate 4 mg PRN Q15MIN PRN IV/SQ PAIN GREATER THAN 3/10 Last administered on 04/20/17 17:30; Start 04/20/17 at 16:30; Stop 04/20/17 at 17 :47; Status DC Nitroglycerin (Nitrostat) 0.4 mg PRN Q5MIN PRN SL CHEST PAIN Last administered on 04/20/17 16:57; Start 04/20/17 at 16:30; Stop 04/20/17 at 17:48; Status DC Nicardipine HCl 50 mg/Sodium Chloride 270 ml @ 0 mls/hr CONT PRN IV SEE I/O RECORD Last administered on 04/20/17 16:52; Start 04/20/17 at 16:45; Stop at 11:13; Status DC Sodium Chloride 1,000 ml @ 1,000 mls/hr Q1H IV Last administered on 17:56; Start 04/20/17 at 18:00; Stop 04/20/17 at 18:59; Status DC Sodium Chloride 1,000 ml @ 250 mls/hr Q4H IV ; Start 04/20/17 at 19:00; Stop 04/20/17 at 19:10; Status DC Dextrose/Sodium Chloride 1,000 ml @ 250 mls/hr Q4H IV ; Start 04/20/17 at 19: 00; Stop 04/20/17 at 19:10; Status DC Insulin Human Regular 150 unit/ Sodium Chloride 151.5 ml @ 0 mls/hr CONT PRN PRN IV PER PROTOCOL Last administered on 04/20/17 17:59; Start 04/20/17 at 17 :30; Stop 04/20/17 at 19:10; Status DC Magnesium Sulfate/ Dextrose 100 ml @ 25 mls/hr DAILY IV ; Start 04/21/17 at 09 :00; Stop 04/21/17 at 09:00; Status DC Potassium Chloride (Klor-Con) 40 meq 1X ONCE PO Last administered on 17:56; Start 04/20/17 at 18:00; Stop 04/20/17 at 18:01; Status DC Potassium Chloride (Klor-Con) 20 meq PRN Q1HR PRN PO K level is 4 to 5 mEq/L; Start 04/20/17 at 17:45 Ondansetron HCl (Zofran) 4 mg PRN Q8HRS PRN IV NAUSEA/VOMITING; Start at 17:45; Stop 04/21/17 at 17:44; Status DC Morphine Sulfate 2 mg PRN Q2HR PRN IV PAIN; Start 04/20/17 at 17:45; Stop at 17:44; Status DC Acetaminophen (Tylenol) 650 mg PRN Q4HRS PRN PO FEVER Last administered on 12:51; Start 04/20/17 at 17:45; Stop 04/21/17 at 17:44; Status DC Nitroglycerin (Nitrostat) 0.4 mg PRN Q5MIN PRN SL CHEST PAIN; Start 04/20/17 at 17:45; Stop 04/21/17 at 17:44; Status DC Potassium Chloride (Klor-Con) 40 meq PRN Q1HR PRN PO K level is 3 to 3.9 mEq/L Last administered on 04/22/17 11:28; Start 04/20/17 at 17:45 Potassium Chloride (Klor-Con) 60 meq PRN Q1HR PRN PO K level < 3 mEq/L; Start 04/20/17 at 17:45 Insulin Aspart (NovoLOG) 15 units TIDAC SQ ; Start 04/21/17 at 07:30; Status Cancel Insulin Detemir (Levemir) 15 units QHS SQ Last administered on 04/21/17 20:30 ; Start 04/20/17 at 21:00 Influenza Virus Vaccine Quadrival (Fluarix Quad [id number] Syringe) 0.5 ml ONCE ONCE VAX IM Last administered on 04/21/17 12:55; Start 04/20/17 at 21:00; Stop 04/20/17 at 21:01; Status DC Insulin Aspart (NovoLOG) 15 units 1X ONCE SQ Last administered on 04/20/17 19:50; Start 04/20/17 at 19:30; Stop 04/20/17 at 19:31; Status DC Insulin Aspart (NovoLOG) 0-9 UNITS TIDWMEALS SQ Last administered on 11:21; Start 04/21/17 at 08:00 Dextrose (Dextrose 50%-Water Syringe) 12.5 gm PRN Q15MIN PRN IV SEE COMMENTS; Start 04/20/17 at 19:30 Atorvastatin Calcium (Lipitor) 20 mg QHS PO Last administered on 04/20/17 19: 47; Start 04/20/17 at 21:00; Stop 04/21/17 at 13:04; Status DC Clopidogrel Bisulfate (Plavix) 75 mg DAILYWBKFT PO Last administered on 11:34; Start 04/21/17 at 08:00 Cyclobenzaprine HCl (Flexeril) 10 mg TID PO Last administered on 04/22/17 08: 59; Start 04/20/17 at 21:00 Acetaminophen/ Hydrocodone Bitart (Lortab 10/325) 1 tab PRN Q6HRS PRN PO PAIN Last administered on 04/22/17 09:32; Start 04/20/17 at 19:30 Carvedilol (Coreg) 25 mg BIDWMEALS PO Last administered on 04/22/17 11:27; Start 04/21/17 at 08:00 Gabapentin (Neurontin) 300 mg TID PO Last administered on 04/22/17 08:59; Start 04/20/17 at 21:00 Aspirin (Vibha Aspirin) 325 mg DAILYWBKFT PO Last administered on 04/21/17 09 :30; Start 04/21/17 at 08:00; Stop 04/21/17 at 11:13; Status DC Carvedilol (Coreg) 25 mg 1X ONCE PO Last administered on 04/20/17 19:48; Start 04/20/17 at 20:00; Stop 04/20/17 at 20:01; Status DC Aspirin (Ecotrin) 81 mg DAILYWBKFT PO Last administered on 04/22/17 11:31; Start 04/21/17 at 11:30 Isosorbide Mononitrate (Imdur) 60 mg DAILY PO Last administered on 04/21/17 12:51; Start 04/21/17 at 11:30 Hydralazine HCl (Apresoline Inj) 10 mg PRN Q4HRS PRN IVP ELEVATED BP, SEE COMMENTS; Start 04/21/17 at 11:15 Atorvastatin Calcium (Lipitor) 80 mg QHS PO Last administered on 04/21/17 20: 19; Start 04/21/17 at 21:00 Lisinopril (Prinivil) 10 mg DAILY PO Last administered on 04/22/17 11:26; Start 04/21/17 at 16:00 Regadenoson (Lexiscan) 0.4 mg 1X ONCE IV Last administered on 04/22/17 10:51 ; Start 04/22/17 at 08:45; Stop 04/22/17 at 08:46; Status DC Active Scripts Active Lipitor (Atorvastatin Calcium) 20 Mg Tablet 20 Mg PO QHS Plavix (Clopidogrel Bisulfate) 75 Mg Tablet 75 Mg PO DAILYWBKFT [Aspirin] 325 MG Tablet 325 Mg PO DAILYWBKFT Lortab 10-325 mg Tablet (Hydrocodone/Acetaminophen) 1 Each Tablet 1 Tab PO PRN Q6HRS PRN Januvia (Sitagliptin Phosphate) 100 Mg Tablet 1 Tab PO DAILY Glimepiride 4 Mg Tablet 1 Tab PO BID Reported Ms Contin (Morphine Sulfate) 30 Mg Tablet.er 1 Tab PO BID Temazepam 30 Mg Capsule 30 Mg PO HS PRN Carvedilol 25 Mg Tablet 25 Mg PO BIDWMEALS Cyclobenzaprine Hcl 10 Mg Tablet 1 Tab PO TID Prednisone 10 Mg Tablet 10 Mg PO DAILY Tribenzor 40-5-12.5 Mg Tablet (Olmesartan/Amlodipin/Hcthiazid) 1 Each Tablet 1 Each PO TID Lyrica (Pregabalin) 75 Mg Capsule 1 Cap PO BID Ropinirole Hcl 2 Mg Tablet 2 Mg PO QHS Neurontin (Gabapentin) 300 Mg Capsule 3 Cap PO TID Hydrocodone-Apap 10-300 (Hydrocodone Bit/Acetaminophen) 1 Each Tablet 2 Tab PO Q4HRS PRN Amitriptyline Hcl 100 Mg Tablet 1 Tab PO QHS Trazodone Hcl 150 Mg Tablet 1 Tab PO QHS Vitals/I & O Vital Sign - Last 24 Hours 04/21/17 04/21/17 04/21/17 04/21/17 14:00 15:00 16:00 16:00 Temp 97.9 97.9 Pulse 78 78 78 Resp 20 18 18 B/P (MAP) 155/87 (109) 136/71 (92) 152/103 (119) Pulse Ox 99 99 99 O2 Delivery Room Air Room Air Room Air Room Air 04/21/17 04/21/17 04/21/17 04/21/17 17:00 17:30 17:31 18:00 Pulse 78 75 84 Resp 18 18 B/P (MAP) 139/78 (98) 140/90 140/90 147/93 (111) Pulse Ox 99 99 O2 Delivery Room Air Room Air 04/21/17 04/21/17 04/21/17 04/21/17 19:00 20:00 20:00 21:00 Temp 97.1 97.1 Pulse 84 82 75 Resp 18 18 16 B/P (MAP) 136/78 (97) 130/71 (90) 142/82 (102) Pulse Ox 99 99 97 O2 Delivery Room Air Room Air Room Air Room Air 04/21/17 04/21/17 04/21/17 04/22/17 22:00 23:00 23:59 00:00 Temp 97.8 97.8 Pulse 83 80 80 Resp 18 18 18 B/P (MAP) 144/83 (103) 136/78 (97) 133/82 (99) Pulse Ox 98 99 99 O2 Delivery Room Air Room Air Room Air Room Air 04/22/17 04/22/17 04/22/17 04/22/17 01:00 02:00 03:00 04:00 Pulse 80 77 72 Resp 16 18 18 B/P (MAP) 135/72 (93) 153/83 (106) 137/68 (91) Pulse Ox 99 99 99 O2 Delivery Room Air Room Air Room Air Room Air 04/22/17 04/22/17 04/22/17 04/22/17 04:00 04:05 05:00 05:05 Temp 95.3 95.3 Pulse 74 72 Resp 18 18 2 B/P (MAP) 152/89 (110) 161/91 (114) Pulse Ox 99 99 99 99 O2 Delivery Room Air Room Air Room Air Room Air 04/22/17 04/22/17 04/22/17 04/22/17 06:00 08:00 08:00 10:00 Temp 98.2 98.2 Pulse 74 80 74 Resp 16 16 16 B/P (MAP) 136/81 (99) 151/82 (105) 151/98 (115) Pulse Ox 99 99 O2 Delivery Room Air Room Air Room Air Room Air 04/22/17 04/22/17 11:26 11:27 Pulse 91 91 B/P (MAP) 183/112 183/112 Intake and Output 04/21/17 04/21/17 04/22/17 14:59 22:59 06:59 Intake Total 690 ml 0 ml Output Total 900 ml 500 ml Balance -210 ml -500 ml JERROD VILLALOBOS MD 04/22/17 1440: PROGRESS NOTES Assessment Assessment Patient seen and examined. 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 Blood pressure better controlled since admission. Lexiscan nuclear stress test did not show any significant ischemia. Continue current medical regimen. ALINA JIMENEZ APRN Apr 22, 2017 13:15 JERROD VILLALOBOS MD Apr 22, 2017 14:40
--- NOTE | 2017-04-22 14:11 | PDOC ---
PROGRESS NOTES Chief Complaint Chief Complaint Chest pain Arthritis CHF Diabetes-Type II Hypertension Herniated disc History of Present Illness History of Present Illness Pt was seen and examined today the ICU. Pt sitting upright in bed, wearing hospital gown C/o AMATO Vitals Vitals Vital Signs Date Time Temp Pulse Resp B/P (MAP) Pulse Ox O2 Delivery O2 Flow Rate FiO2 04/22/17 11:27 91 183/112 04/22/17 10:00 16 Room Air 04/22/17 08:00 98.2 99 98.2 Physical Exam General: Alert, Oriented X3, Cooperative, No acute distress Heart: Normal S1, Normal S2, No murmurs Lungs: Clear, Other (No wheezes or crackles) Abdomen: Normal bowel sounds, Soft, No tenderness Extremities: No clubbing, No cyanosis Skin: No rashes, No breakdown Labs LABS Laboratory Tests Test 04/21/17 14:40 04/21/17 17:34 04/21/17 20:25 04/22/17 04:45 Troponin I Quantitative 0.416 ng/mL (0.000-0.055) Glucose (Fingerstick) 286 mg/dL (70-99) 329 mg/dL (70-99) White Blood Count 8.9 x10^3/uL (4.0-11.0) Red Blood Count 4.90 x10^6/uL (4.30-5.70) Hemoglobin 13.7 g/dL (13.0-17.5) Hematocrit 41.2 % (39.0-53.0) Mean Corpuscular Volume 84 fL (79-100) Mean Corpuscular Hemoglobin 28 pg (25-35) Mean Corpuscular Hemoglobin Concent 33 g/dL (31-37) Red Cell Distribution Width 14.1 % (11.5-14.5) Platelet Count 227 x10^3/uL (140-400) Neutrophils (%) (Auto) 68 % (31-73) Lymphocytes (%) (Auto) 24 % (24-48) Monocytes (%) (Auto) 7 % (0-9) Eosinophils (%) (Auto) 1 % (0-3) Basophils (%) (Auto) 1 % (0-3) Neutrophils # (Auto) 6.1 x10^3uL (1.8-7.7) Lymphocytes # (Auto) 2.1 x10^3/uL (1.0-4.8) Monocytes # (Auto) 0.6 x10^3/uL (0.0-1.1) Eosinophils # (Auto) 0.1 x10^3/uL (0.0-0.7) Basophils # (Auto) 0.1 x10^3/uL (0.0-0.2) Sodium Level 133 mmol/L (136-145) Potassium Level 3.7 mmol/L (3.5-5.1) Chloride Level 103 mmol/L (98-107) Carbon Dioxide Level 23 mmol/L (21-32) Anion Gap 7 (6-14) Blood Urea Nitrogen 23 mg/dL (8-26) Creatinine 1.3 mg/dL (0.7-1.3) Estimated GFR (Cockcroft-Gault) 58.4 Glucose Level 249 mg/dL (70-99) Calcium Level 8.7 mg/dL (8.5-10.1) Test 04/22/17 11:18 Glucose (Fingerstick) 264 mg/dL (70-99) Review of Systems Review of Systems GEN: Denies fevers, chills, or sweats GI: Denies n/v/d NEURO: Denies confusion, dizziness Assessment and Plan Assessmemt and Plan Problems Medical Problems: (1) Acute renal failure Status: Acute (2) Chest pain Status: Acute (3) Hyperosmolar non-ketotic state in patient with type 2 diabetes mellitus Status: Acute (4) Hypertensive emergency without congestive heart failure Status: Acute (5) Severe hypertension Status: Acute Assessment: Chest pain Arthritis CHF Diabetes-Type II Hypertension Herniated disc Plan: Transfer from ICU to telemetry Continue cardiac monitoring Awaiting Lexiscan stress test results Continue home meds Continue PT/OT Recheck labs in am Problems: Comment Review of Relevant I have reviewed the following items gavin (where applicable) has been applied. Labs Laboratory Tests Test 04/20/17 16:00 04/20/17 16:40 04/20/17 18:40 04/20/17 18:59 White Blood Count 7.9 x10^3/uL (4.0-11.0) Red Blood Count 5.25 x10^6/uL (4.30-5.70) Hemoglobin 15.0 g/dL (13.0-17.5) Hematocrit 44.8 % (39.0-53.0) Mean Corpuscular Volume 85 fL (79-100) Mean Corpuscular Hemoglobin 29 pg (25-35) Mean Corpuscular Hemoglobin Concent 33 g/dL (31-37) Red Cell Distribution Width 14.0 % (11.5-14.5) Platelet Count 252 x10^3/uL (140-400) Neutrophils (%) (Auto) 80 % (31-73) Lymphocytes (%) (Auto) 14 % (24-48) Monocytes (%) (Auto) 5 % (0-9) Eosinophils (%) (Auto) 0 % (0-3) Basophils (%) (Auto) 0 % (0-3) Neutrophils # (Auto) 6.4 x10^3uL (1.8-7.7) Lymphocytes # (Auto) 1.1 x10^3/uL (1.0-4.8) Monocytes # (Auto) 0.4 x10^3/uL (0.0-1.1) Eosinophils # (Auto) 0.0 x10^3/uL (0.0-0.7) Basophils # (Auto) 0.0 x10^3/uL (0.0-0.2) Prothrombin Time 12.8 SEC (11.7-14.0) Prothromb Time International Ratio 1.0 (0.8-1.1) Activated Partial Thromboplast Time 24 SEC (24-38) Sodium Level 126 mmol/L (136-145) Potassium Level 3.8 mmol/L (3.5-5.1) Chloride Level 91 mmol/L (98-107) Carbon Dioxide Level 25 mmol/L (21-32) Anion Gap 10 (6-14) Blood Urea Nitrogen 23 mg/dL (8-26) Creatinine 1.6 mg/dL (0.7-1.3) Estimated GFR (Cockcroft-Gault) 46.0 BUN/Creatinine Ratio 14 (6-20) Glucose Level 806 mg/dL (70-99) Serum Osmolality 312 mOsm/Kg (279-304) Calcium Level 8.8 mg/dL (8.5-10.1) Magnesium Level 1.9 mg/dL (1.8-2.4) Total Bilirubin 0.4 mg/dL (0.2-1.0) Aspartate Amino Transf (AST/SGOT) 12 U/L (15-37) Alanine Aminotransferase (ALT/SGPT) 16 U/L (16-63) Alkaline Phosphatase 210 U/L (46-116) Troponin I Quantitative 0.023 ng/mL (0.000-0.055) MO-Ekq-L-Type Natriuretic Peptide 1430 pg/mL (0-124) Total Protein 6.9 g/dL (6.4-8.2) Albumin 2.8 g/dL (3.4-5.0) Albumin/Globulin Ratio 0.7 (1.0-1.7) Urine Collection Type Unknown Urine Color Yellow Urine Clarity Clear Urine pH 5.5 Urine Specific [place] >=1.030 Urine Protein 100 mg/dL (NEG-TRACE) Urine Glucose (UA) >=1000 mg/dL (NEG) Urine Ketones (Stick) Negative mg/dL (NEG) Urine Blood Trace (NEG) Urine Nitrite Negative (NEG) Urine Bilirubin Negative (NEG) Urine Urobilinogen Dipstick 0.2 mg/dL (0.2 mg/dL) Urine Leukocyte Esterase Negative (NEG) Urine RBC Occ /HPF (0-2) Urine WBC 0 /HPF (0-4) Urine Bacteria 0 /HPF (0-FEW) Nasal Screen MRSA (PCR) Negative (Negative) Glucose (Fingerstick) 541 mg/dL (70-99) Test 04/20/17 20:02 04/20/17 21:02 04/20/17 23:45 04/20/17 23:53 Glucose (Fingerstick) 449 mg/dL (70-99) 326 mg/dL (70-99) 175 mg/dL (70-99) Troponin I Quantitative 0.560 ng/mL (0.000-0.055) Test 04/21/17 04:57 04/21/17 05:25 04/21/17 09:27 04/21/17 12:57 Glucose (Fingerstick) 217 mg/dL (70-99) 265 mg/dL (70-99) 267 mg/dL (70-99) White Blood Count 10.9 x10^3/uL (4.0-11.0) Red Blood Count 5.29 x10^6/uL (4.30-5.70) Hemoglobin 14.9 g/dL (13.0-17.5) Hematocrit 44.2 % (39.0-53.0) Mean Corpuscular Volume 84 fL (79-100) Mean Corpuscular Hemoglobin 28 pg (25-35) Mean Corpuscular Hemoglobin Concent 34 g/dL (31-37) Red Cell Distribution Width 13.9 % (11.5-14.5) Platelet Count 263 x10^3/uL (140-400) Neutrophils (%) (Auto) 70 % (31-73) Lymphocytes (%) (Auto) 23 % (24-48) Monocytes (%) (Auto) 6 % (0-9) Eosinophils (%) (Auto) 1 % (0-3) Basophils (%) (Auto) 1 % (0-3) Neutrophils # (Auto) 7.6 x10^3uL (1.8-7.7) Lymphocytes # (Auto) 2.5 x10^3/uL (1.0-4.8) Monocytes # (Auto) 0.6 x10^3/uL (0.0-1.1) Eosinophils # (Auto) 0.1 x10^3/uL (0.0-0.7) Basophils # (Auto) 0.0 x10^3/uL (0.0-0.2) Sodium Level 135 mmol/L (136-145) Potassium Level 3.6 mmol/L (3.5-5.1) Chloride Level 101 mmol/L (98-107) Carbon Dioxide Level 22 mmol/L (21-32) Anion Gap 12 (6-14) Blood Urea Nitrogen 21 mg/dL (8-26) Creatinine 1.2 mg/dL (0.7-1.3) Estimated GFR (Cockcroft-Gault) 64.1 Glucose Level 218 mg/dL (70-99) Calcium Level 9.0 mg/dL (8.5-10.1) Magnesium Level 1.9 mg/dL (1.8-2.4) Troponin I Quantitative 0.612 ng/mL (0.000-0.055) Triglycerides Level 465 mg/dL (0-150) Cholesterol Level 338 mg/dL (0-200) LDL Cholesterol, Calculated 200 mg/dL (0-100) VLDL Cholesterol, Calculated 93 mg/dL (0-40) Non-HDL Cholesterol Calculated 293 mg/dL (0-129) HDL Cholesterol 45 mg/dL (40-60) Cholesterol/HDL Ratio 7.5 Thyroid Stimulating Hormone (TSH) 0.477 uIU/mL (0.358-3.74) Test 04/21/17 14:40 04/21/17 17:34 04/21/17 20:25 04/22/17 04:45 Troponin I Quantitative 0.416 ng/mL (0.000-0.055) Glucose (Fingerstick) 286 mg/dL (70-99) 329 mg/dL (70-99) White Blood Count 8.9 x10^3/uL (4.0-11.0) Red Blood Count 4.90 x10^6/uL (4.30-5.70) Hemoglobin 13.7 g/dL (13.0-17.5) Hematocrit 41.2 % (39.0-53.0) Mean Corpuscular Volume 84 fL (79-100) Mean Corpuscular Hemoglobin 28 pg (25-35) Mean Corpuscular Hemoglobin Concent 33 g/dL (31-37) Red Cell Distribution Width 14.1 % (11.5-14.5) Platelet Count 227 x10^3/uL (140-400) Neutrophils (%) (Auto) 68 % (31-73) Lymphocytes (%) (Auto) 24 % (24-48) Monocytes (%) (Auto) 7 % (0-9) Eosinophils (%) (Auto) 1 % (0-3) Basophils (%) (Auto) 1 % (0-3) Neutrophils # (Auto) 6.1 x10^3uL (1.8-7.7) Lymphocytes # (Auto) 2.1 x10^3/uL (1.0-4.8) Monocytes # (Auto) 0.6 x10^3/uL (0.0-1.1) Eosinophils # (Auto) 0.1 x10^3/uL (0.0-0.7) Basophils # (Auto) 0.1 x10^3/uL (0.0-0.2) Sodium Level 133 mmol/L (136-145) Potassium Level 3.7 mmol/L (3.5-5.1) Chloride Level 103 mmol/L (98-107) Carbon Dioxide Level 23 mmol/L (21-32) Anion Gap 7 (6-14) Blood Urea Nitrogen 23 mg/dL (8-26) Creatinine 1.3 mg/dL (0.7-1.3) Estimated GFR (Cockcroft-Gault) 58.4 Glucose Level 249 mg/dL (70-99) Calcium Level 8.7 mg/dL (8.5-10.1) Test 04/22/17 11:18 Glucose (Fingerstick) 264 mg/dL (70-99) Laboratory Tests Test 04/21/17 14:40 04/21/17 17:34 04/21/17 20:25 04/22/17 04:45 Troponin I Quantitative 0.416 ng/mL (0.000-0.055) Glucose (Fingerstick) 286 mg/dL (70-99) 329 mg/dL (70-99) White Blood Count 8.9 x10^3/uL (4.0-11.0) Red Blood Count 4.90 x10^6/uL (4.30-5.70) Hemoglobin 13.7 g/dL (13.0-17.5) Hematocrit 41.2 % (39.0-53.0) Mean Corpuscular Volume 84 fL (79-100) Mean Corpuscular Hemoglobin 28 pg (25-35) Mean Corpuscular Hemoglobin Concent 33 g/dL (31-37) Red Cell Distribution Width 14.1 % (11.5-14.5) Platelet Count 227 x10^3/uL (140-400) Neutrophils (%) (Auto) 68 % (31-73) Lymphocytes (%) (Auto) 24 % (24-48) Monocytes (%) (Auto) 7 % (0-9) Eosinophils (%) (Auto) 1 % (0-3) Basophils (%) (Auto) 1 % (0-3) Neutrophils # (Auto) 6.1 x10^3uL (1.8-7.7) Lymphocytes # (Auto) 2.1 x10^3/uL (1.0-4.8) Monocytes # (Auto) 0.6 x10^3/uL (0.0-1.1) Eosinophils # (Auto) 0.1 x10^3/uL (0.0-0.7) Basophils # (Auto) 0.1 x10^3/uL (0.0-0.2) Sodium Level 133 mmol/L (136-145) Potassium Level 3.7 mmol/L (3.5-5.1) Chloride Level 103 mmol/L (98-107) Carbon Dioxide Level 23 mmol/L (21-32) Anion Gap 7 (6-14) Blood Urea Nitrogen 23 mg/dL (8-26) Creatinine 1.3 mg/dL (0.7-1.3) Estimated GFR (Cockcroft-Gault) 58.4 Glucose Level 249 mg/dL (70-99) Calcium Level 8.7 mg/dL (8.5-10.1) Test 04/22/17 11:18 Glucose (Fingerstick) 264 mg/dL (70-99) Medications Current Medications Aspirin (Vibha Aspirin) 325 mg 1X ONCE PO Last administered on 04/20/17 16: 42; Start 04/20/17 at 16:45; Stop 04/20/17 at 16:46; Status DC Morphine Sulfate 4 mg PRN Q15MIN PRN IV/SQ PAIN GREATER THAN 3/10 Last administered on 04/20/17 17:30; Start 04/20/17 at 16:30; Stop 04/20/17 at 17 :47; Status DC Nitroglycerin (Nitrostat) 0.4 mg PRN Q5MIN PRN SL CHEST PAIN Last administered on 04/20/17 16:57; Start 04/20/17 at 16:30; Stop 04/20/17 at 17:48; Status DC Nicardipine HCl 50 mg/Sodium Chloride 270 ml @ 0 mls/hr CONT PRN IV SEE I/O RECORD Last administered on 04/20/17 16:52; Start 04/20/17 at 16:45; Stop at 11:13; Status DC Sodium Chloride 1,000 ml @ 1,000 mls/hr Q1H IV Last administered on 17:56; Start 04/20/17 at 18:00; Stop 04/20/17 at 18:59; Status DC Sodium Chloride 1,000 ml @ 250 mls/hr Q4H IV ; Start 04/20/17 at 19:00; Stop 04/20/17 at 19:10; Status DC Dextrose/Sodium Chloride 1,000 ml @ 250 mls/hr Q4H IV ; Start 04/20/17 at 19: 00; Stop 04/20/17 at 19:10; Status DC Insulin Human Regular 150 unit/ Sodium Chloride 151.5 ml @ 0 mls/hr CONT PRN PRN IV PER PROTOCOL Last administered on 04/20/17 17:59; Start 04/20/17 at 17 :30; Stop 04/20/17 at 19:10; Status DC Magnesium Sulfate/ Dextrose 100 ml @ 25 mls/hr DAILY IV ; Start 04/21/17 at 09 :00; Stop 04/21/17 at 09:00; Status DC Potassium Chloride (Klor-Con) 40 meq 1X ONCE PO Last administered on 17:56; Start 04/20/17 at 18:00; Stop 04/20/17 at 18:01; Status DC Potassium Chloride (Klor-Con) 20 meq PRN Q1HR PRN PO K level is 4 to 5 mEq/L; Start 04/20/17 at 17:45 Ondansetron HCl (Zofran) 4 mg PRN Q8HRS PRN IV NAUSEA/VOMITING; Start at 17:45; Stop 04/21/17 at 17:44; Status DC Morphine Sulfate 2 mg PRN Q2HR PRN IV PAIN; Start 04/20/17 at 17:45; Stop at 17:44; Status DC Acetaminophen (Tylenol) 650 mg PRN Q4HRS PRN PO FEVER Last administered on 12:51; Start 04/20/17 at 17:45; Stop 04/21/17 at 17:44; Status DC Nitroglycerin (Nitrostat) 0.4 mg PRN Q5MIN PRN SL CHEST PAIN; Start 04/20/17 at 17:45; Stop 04/21/17 at 17:44; Status DC Potassium Chloride (Klor-Con) 40 meq PRN Q1HR PRN PO K level is 3 to 3.9 mEq/L Last administered on 04/22/17 11:28; Start 04/20/17 at 17:45 Potassium Chloride (Klor-Con) 60 meq PRN Q1HR PRN PO K level < 3 mEq/L; Start 04/20/17 at 17:45 Insulin Aspart (NovoLOG) 15 units TIDAC SQ ; Start 04/21/17 at 07:30; Status Cancel Insulin Detemir (Levemir) 15 units QHS SQ Last administered on 04/21/17 20:30 ; Start 04/20/17 at 21:00 Influenza Virus Vaccine Quadrival (Fluarix Quad 7531-0352 Syringe) 0.5 ml ONCE ONCE VAX IM Last administered on 04/21/17 12:55; Start 04/20/17 at 21:00; Stop 04/20/17 at 21:01; Status DC Insulin Aspart (NovoLOG) 15 units 1X ONCE SQ Last administered on 04/20/17 19:50; Start 04/20/17 at 19:30; Stop 04/20/17 at 19:31; Status DC Insulin Aspart (NovoLOG) 0-9 UNITS TIDWMEALS SQ Last administered on 11:21; Start 04/21/17 at 08:00 Dextrose (Dextrose 50%-Water Syringe) 12.5 gm PRN Q15MIN PRN IV SEE COMMENTS; Start 04/20/17 at 19:30 Atorvastatin Calcium (Lipitor) 20 mg QHS PO Last administered on 04/20/17 19: 47; Start 04/20/17 at 21:00; Stop 04/21/17 at 13:04; Status DC Clopidogrel Bisulfate (Plavix) 75 mg DAILYWBKFT PO Last administered on 11:34; Start 04/21/17 at 08:00 Cyclobenzaprine HCl (Flexeril) 10 mg TID PO Last administered on 04/22/17 08: 59; Start 04/20/17 at 21:00 Acetaminophen/ Hydrocodone Bitart (Lortab 10/325) 1 tab PRN Q6HRS PRN PO PAIN Last administered on 04/22/17 09:32; Start 04/20/17 at 19:30 Carvedilol (Coreg) 25 mg BIDWMEALS PO Last administered on 04/22/17 11:27; Start 04/21/17 at 08:00 Gabapentin (Neurontin) 300 mg TID PO Last administered on 04/22/17 08:59; Start 04/20/17 at 21:00 Aspirin (Vibha Aspirin) 325 mg DAILYWBKFT PO Last administered on 04/21/17 09 :30; Start 04/21/17 at 08:00; Stop 04/21/17 at 11:13; Status DC Carvedilol (Coreg) 25 mg 1X ONCE PO Last administered on 04/20/17 19:48; Start 04/20/17 at 20:00; Stop 04/20/17 at 20:01; Status DC Aspirin (Ecotrin) 81 mg DAILYWBKFT PO Last administered on 04/22/17 11:31; Start 04/21/17 at 11:30 Isosorbide Mononitrate (Imdur) 60 mg DAILY PO Last administered on 04/21/17 12:51; Start 04/21/17 at 11:30 Hydralazine HCl (Apresoline Inj) 10 mg PRN Q4HRS PRN IVP ELEVATED BP, SEE COMMENTS; Start 04/21/17 at 11:15 Atorvastatin Calcium (Lipitor) 80 mg QHS PO Last administered on 04/21/17 20: 19; Start 04/21/17 at 21:00 Lisinopril (Prinivil) 10 mg DAILY PO Last administered on 04/22/17 11:26; Start 04/21/17 at 16:00 Regadenoson (Lexiscan) 0.4 mg 1X ONCE IV Last administered on 04/22/17 10:51 ; Start 04/22/17 at 08:45; Stop 04/22/17 at 08:46; Status DC Active Scripts Active Lipitor (Atorvastatin Calcium) 20 Mg Tablet 20 Mg PO QHS Plavix (Clopidogrel Bisulfate) 75 Mg Tablet 75 Mg PO DAILYWBKFT [Aspirin] 325 MG Tablet 325 Mg PO DAILYWBKFT Lortab 10-325 mg Tablet (Hydrocodone/Acetaminophen) 1 Each Tablet 1 Tab PO PRN Q6HRS PRN Januvia (Sitagliptin Phosphate) 100 Mg Tablet 1 Tab PO DAILY Glimepiride 4 Mg Tablet 1 Tab PO BID Reported Ms Contin (Morphine Sulfate) 30 Mg Tablet.er 1 Tab PO BID Temazepam 30 Mg Capsule 30 Mg PO HS PRN Carvedilol 25 Mg Tablet 25 Mg PO BIDWMEALS Cyclobenzaprine Hcl 10 Mg Tablet 1 Tab PO TID Prednisone 10 Mg Tablet 10 Mg PO DAILY Tribenzor 40-5-12.5 Mg Tablet (Olmesartan/Amlodipin/Hcthiazid) 1 Each Tablet 1 Each PO TID Lyrica (Pregabalin) 75 Mg Capsule 1 Cap PO BID Ropinirole Hcl 2 Mg Tablet 2 Mg PO QHS Neurontin (Gabapentin) 300 Mg Capsule 3 Cap PO TID Hydrocodone-Apap 10-300 (Hydrocodone Bit/Acetaminophen) 1 Each Tablet 2 Tab PO Q4HRS PRN Amitriptyline Hcl 100 Mg Tablet 1 Tab PO QHS Trazodone Hcl 150 Mg Tablet 1 Tab PO QHS Vitals/I & O Vital Sign - Last 24 Hours 04/21/17 04/21/17 04/21/17 04/21/17 14:00 15:00 16:00 16:00 Temp 97.9 97.9 Pulse 78 78 78 Resp 20 18 18 B/P (MAP) 155/87 (109) 136/71 (92) 152/103 (119) Pulse Ox 99 99 99 O2 Delivery Room Air Room Air Room Air Room Air 04/21/17 04/21/17 04/21/17 04/21/17 17:00 17:30 17:31 18:00 Pulse 78 75 84 Resp 18 18 B/P (MAP) 139/78 (98) 140/90 140/90 147/93 (111) Pulse Ox 99 99 O2 Delivery Room Air Room Air 04/21/17 04/21/17 04/21/17 04/21/17 19:00 20:00 20:00 21:00 Temp 97.1 97.1 Pulse 84 82 75 Resp 18 18 16 B/P (MAP) 136/78 (97) 130/71 (90) 142/82 (102) Pulse Ox 99 99 97 O2 Delivery Room Air Room Air Room Air Room Air 04/21/17 04/21/17 04/21/17 04/22/17 22:00 23:00 23:59 00:00 Temp 97.8 97.8 Pulse 83 80 80 Resp 18 18 18 B/P (MAP) 144/83 (103) 136/78 (97) 133/82 (99) Pulse Ox 98 99 99 O2 Delivery Room Air Room Air Room Air Room Air 04/22/17 04/22/17 04/22/17 04/22/17 01:00 02:00 03:00 04:00 Pulse 80 77 72 Resp 16 18 18 B/P (MAP) 135/72 (93) 153/83 (106) 137/68 (91) Pulse Ox 99 99 99 O2 Delivery Room Air Room Air Room Air Room Air 04/22/17 04/22/17 04/22/17 04/22/17 04:00 04:05 05:00 05:05 Temp 95.3 95.3 Pulse 74 72 Resp 18 18 2 B/P (MAP) 152/89 (110) 161/91 (114) Pulse Ox 99 99 99 99 O2 Delivery Room Air Room Air Room Air Room Air 04/22/17 04/22/17 04/22/17 04/22/17 06:00 08:00 08:00 10:00 Temp 98.2 98.2 Pulse 74 80 74 Resp 16 16 16 B/P (MAP) 136/81 (99) 151/82 (105) 151/98 (115) Pulse Ox 99 99 O2 Delivery Room Air Room Air Room Air Room Air 04/22/17 04/22/17 11:26 11:27 Pulse 91 91 B/P (MAP) 183/112 183/112 Intake and Output 04/21/17 04/21/17 04/22/17 14:59 22:59 06:59 Intake Total 690 ml 0 ml Output Total 900 ml 500 ml Balance -210 ml -500 ml LES ZHAO III DO Apr 22, 2017 14:11
[2017-04-22] MEDS: ISOSORBIDE MONONITRATE ER 30 MG TAB.ER.24H PO SCH (14:28)
[2017-04-22] MEDS: ATORVASTATIN CALCIUM 40 MG TABLET. PO SCH (21:06)
[2017-04-22] MEDS: INSULIN DETEMIR 300 UNITS/3 ML INSULN.PEN. SQ SCH (21:09)
[2017-04-23] MEDS: HYDROcodone/APAP 10/325 1 TAB TABLET PO PRN ×3 (01:14→14:22)
[2017-04-23 03:05] VITALS: BP 133/73
[2017-04-23 06:04] LABS: BASO # 0.1 x10^3/uL (0.0-0.2); BASO % 1 % (0-3); EOS % 2 % (0-3); HEMATOCRIT 37.6 % (39.0-53.0); HEMOGLOBIN 12.6 g/dL (13.0-17.5); LYMPH % 26 % (24-48); MEAN CORPUSCULAR HEMOGLOBIN 28 pg (25-35); MEAN CORPUSCULAR HGB CONC 33 g/dL (31-37); MEAN CORPUSCULAR VOLUME 84 fL (79-100); MONO % 9 % (0-9); NEUT % 63 % (31-73); PLATELET COUNT 199 x10^3/uL (140-400); RED BLOOD COUNT 4.47 x10^6/uL (4.30-5.70); RED CELL DISTRIBUTION WIDTH 14.2 % (11.5-14.5); WHITE BLOOD COUNT 7.8 x10^3/uL (4.0-11.0)
[2017-04-23 06:42] LABS: CALCIUM 8.3 mg/dL (8.5-10.1); CREATININE 1.4 mg/dL (0.7-1.3); GFR 53.6; POTASSIUM 4.1 mmol/L (3.5-5.1)
[2017-04-23 07:25] VITALS: BP 172/109
[2017-04-23] MEDS: GABAPENTIN 300 MG CAPSULE. PO SCH ×2 (08:45→14:21)
[2017-04-23] MEDS: CLOPIDOGREL BISULFATE 75 MG TABLET PO SCH (08:45)
[2017-04-23] MEDS: CYCLOBENZAPRINE 10 MG TABLET. PO SCH ×2 (08:45→14:21)
[2017-04-23] MEDS: ASPIRIN ENTERIC COATED 81 MG TABLET.DR. PO SCH (08:45)
[2017-04-23] MEDS: ISOSORBIDE MONONITRATE ER 30 MG TAB.ER.24H PO SCH (08:46)
[2017-04-23] MEDS: CARVEDILOL 12.5 MG TABLET. PO SCH (08:47)
[2017-04-23] MEDS: INSULIN ASPART 300 UNITS/3 ML INSULN.PEN SQ SCH ×2 (08:49→12:31)
[2017-04-23] MEDS ORDERED: LISINOPRIL 10 MG TABLET PO SCH (09:00)
[2017-04-23 12:14] VITALS: BP 136/109
--- NOTE | 2017-04-23 12:45 | PDOC ---
CARDIO Progress Notes Date and Time Date of Service 04/23/2017 Time of Evaluation 1220 Subjective Subjective: No Chest Pain, No shortness of breath, No Palpitations Vitals Vitals Vital Signs Date Time Temp Pulse Resp B/P (MAP) Pulse Ox O2 Delivery O2 Flow Rate FiO2 04/23/17 12:14 97.9 80 20 136/109 (118) 97 Room Air 97.9 Weight Weight [ ] Input and Output Intake and Output Intake and Output 04/23/17 07:00 Intake Total 4150 ml Output Total 1525 ml Balance 2625 ml Intake Oral 4150 ml Output Urine Total 1525 ml # Voids 4 Laboratory Labs Laboratory Tests Test 04/22/17 17:03 04/22/17 20:35 04/23/17 05:32 04/23/17 07:29 Glucose (Fingerstick) 249 mg/dL (70-99) 348 mg/dL (70-99) 250 mg/dL (70-99) White Blood Count 7.8 x10^3/uL (4.0-11.0) Red Blood Count 4.47 x10^6/uL (4.30-5.70) Hemoglobin 12.6 g/dL (13.0-17.5) Hematocrit 37.6 % (39.0-53.0) Mean Corpuscular Volume 84 fL (79-100) Mean Corpuscular Hemoglobin 28 pg (25-35) Mean Corpuscular Hemoglobin Concent 33 g/dL (31-37) Red Cell Distribution Width 14.2 % (11.5-14.5) Platelet Count 199 x10^3/uL (140-400) Neutrophils (%) (Auto) 63 % (31-73) Lymphocytes (%) (Auto) 26 % (24-48) Monocytes (%) (Auto) 9 % (0-9) Eosinophils (%) (Auto) 2 % (0-3) Basophils (%) (Auto) 1 % (0-3) Neutrophils # (Auto) 4.9 x10^3uL (1.8-7.7) Lymphocytes # (Auto) 2.0 x10^3/uL (1.0-4.8) Monocytes # (Auto) 0.7 x10^3/uL (0.0-1.1) Eosinophils # (Auto) 0.1 x10^3/uL (0.0-0.7) Basophils # (Auto) 0.1 x10^3/uL (0.0-0.2) Sodium Level 132 mmol/L (136-145) Potassium Level 4.1 mmol/L (3.5-5.1) Chloride Level 101 mmol/L (98-107) Carbon Dioxide Level 24 mmol/L (21-32) Anion Gap 7 (6-14) Blood Urea Nitrogen 24 mg/dL (8-26) Creatinine 1.4 mg/dL (0.7-1.3) Estimated GFR (Cockcroft-Gault) 53.6 Glucose Level 305 mg/dL (70-99) Calcium Level 8.3 mg/dL (8.5-10.1) Test 04/23/17 11:57 Glucose (Fingerstick) 273 mg/dL (70-99) Physical Exam HEENT: Neck Supple W Full Motion Chest: Symmetric LUNGS: Clear to Auscultation Heart: S1S2, RRR (SR) Abdomen: Soft N/T Extremities: No Calf Tenderness Neurology: alert, oriented, follow commands Assessment Assessment 1. Accelerated hypertension labile in AM. 2. Atypical CP: MPI no reversible defects 3. CAD: PCI/stents in the past 4. Elevated troponin; due to uncontrolled BP 5. Mild cardiomyopathy: EF 40-45% 6. Noncompliance: due to lack of funds. Recommendations 1. Continue with secondary prevention. 2. Encourage home BP monitoring and outpt follow up 3. Discussed compliance with treatment 4. Continue current BP regimen. May incorporate HCTZ. 5. May DC per cardiac perspective. 6. 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
[2017-04-23] MEDS ORDERED: hydroCHLOROthiazide 12.5 MG CAPSULE PO SCH (13:00)
[2017-04-23 15:18] VITALS: BP 152/93
[2017-04-23] MEDS ORDERED: ATOR40TA59 PO (16:23)
[2017-04-23] MEDS ORDERED: ISOS30TA4 PO (16:23)
--- NOTE | 2017-04-24 18:44 | DS ---
DATE OF DISCHARGE: 04/23/2017 CHIEF COMPLAINT: Chest pain, hypertensive urgency. HOSPITAL COURSE: The patient is a 51-year-old gentleman with known history of hypertension who presented to the Emergency Room with chest pain. He was ruled out for acute coronary syndrome by serial enzymes. Myocardial perfusion imaging was obtained as well, which did not reveal any reversible defect. A mild troponin leak noted during his hospitalization was attributed to poorly controlled blood pressure. The patient unfortunately has difficulties complying with his medication regimen due to financial difficulties and being uninsured. His hypertensive regimen was therefore tailored to $4 medications. Same for statin. He was discharged on metoprolol as well as lovastatin and aspirin. He was encouraged to follow up with his PCP for further prescriptions. He did have chronic back pain for which he apparently has been seen by Dr. Horton in the past. He requested refills of his medications. He was advised that I would only write one week of pain medications for him. He will have to follow up with Dr. Horton or his primary care physician for further script. PHYSICAL EXAM: VS: stable GEN: A&O, NAD CV: RRR PULM: clear ABD: BS+ EXTR: no edema DISCHARGE DIAGNOSIS: Angina, hypertensive urgency DISCHARGE DISPOSITION: home DISCHARGE CONDITION: improved DISCHARGE MEDICATIONS: please see MAR DISCHARGE INSTRUCTIONS: follow up with PCP LEROY. LOIDA MCCULLOUGH MD DR: UR/nts JOB#: [id number] / [id number] STEPHANIE
== END 2017-04-23 17:28 | disposition home or self-care (01) | DRG 304 ==
LOC: ER 16:00 → 1 WEST ICU 17:17 → 2 NORTH 04-22 12:45
PROVIDERS: ADMIT Internal Medicine; ATTEND Internal Medicine
DX: I16.1 Hypertensive emergency (principal); E11.00 Type 2 diabetes mellitus with hyperosmolarity without nonketotic hyperglycemic-hyperosmolar coma (NKHHC); E87.0 Hyperosmolality and hypernatremia; E11.22 Type 2 diabetes mellitus with diabetic chronic kidney disease; N17.9 Acute kidney failure, unspecified; I42.8 Other cardiomyopathies; E87.1 Hypo-osmolality and hyponatremia; I50.42 Chronic combined systolic (congestive) and diastolic (congestive) heart failure; N18.3 Chronic kidney disease, stage 3 (moderate); E11.65 Type 2 diabetes mellitus with hyperglycemia; E78.5 Hyperlipidemia, unspecified; G25.81 Restless legs syndrome; G47.33 Obstructive sleep apnea (adult) (pediatric); F32.9 Major depressive disorder, single episode, unspecified; G89.4 Chronic pain syndrome; I15.8 Other secondary hypertension; M54.9 Dorsalgia, unspecified; I25.10 Atherosclerotic heart disease of native coronary artery without angina pectoris; K21.9 Gastro-esophageal reflux disease without esophagitis; M19.90 Unspecified osteoarthritis, unspecified site; Z79.891 Long term (current) use of opiate analgesic; Z82.49 Family history of ischemic heart disease and other diseases of the circulatory system; Z86.73 Personal history of transient ischemic attack (TIA), and cerebral infarction without residual deficits; Z91.19 Patient's noncompliance with other medical treatment and regimen; Z95.5 Presence of coronary angioplasty implant and graft; Z79.4 Long term (current) use of insulin
CPT/HCPCS: 36415; 70450; 71010; 78452; 80048; 80053; 80061; 81001; 82962; 83735; 83880; 83930; 84443; 84484; 85025; 85610; 85730; 87641; 90686; 93005; 93017; 93306; 96361; 96365; 96374; 96375; 96376; A9500; J1815; J2270; J2785; J7030; J7050; 99291-25

== ENCOUNTER 2018-03-16 23:38 | Inpatient (IN) | payer SELFPAY ==
[~2018-03-16] VITALS: Ht 177.8 cm; Wt 81.8 kg
[~2018-03-16 23:38] MED LIST changes: +ATOR40TA59 PO; +ISOS30TA4 PO
[2018-03-17] VITALS (15 sets, daily range): BP systolic 130–181; BP diastolic 77–116
[2018-03-17 00:33] LABS: BASO # 0.1 x10^3/uL (0.0-0.2); BASO % 1 % (0-3); EOS # 0.1 x10^3/uL (0.0-0.7); EOS % 1 % (0-3); HEMATOCRIT 45.2 % (39.0-53.0); HEMOGLOBIN 15.5 g/dL (13.0-17.5); LYMPH # 2.1 x10^3/uL (1.0-4.8); LYMPH % 21 % (24-48); MEAN CORPUSCULAR HEMOGLOBIN 29 pg (25-35); MEAN CORPUSCULAR HGB CONC 34 g/dL (31-37); MEAN CORPUSCULAR VOLUME 86 fL (79-100); MONO # 0.5 x10^3/uL (0.0-1.1); MONO % 5 % (0-9); NEUT # 7.1 x10^3uL (1.8-7.7); NEUT % 73 % (31-73); PLATELET COUNT 260 x10^3/uL (140-400); RED BLOOD COUNT 5.29 x10^6/uL (4.30-5.70); RED CELL DISTRIBUTION WIDTH 14.1 % (11.5-14.5); WHITE BLOOD COUNT 9.8 x10^3/uL (4.0-11.0)
[2018-03-17 00:41] LABS: CALCIUM 8.9 mg/dL (8.5-10.1); CREATININE 1.7 mg/dL (0.7-1.3); GFR 42.7; POTASSIUM 3.6 mmol/L (3.5-5.1)
[2018-03-17] MEDS ORDERED: NITROGLYCERIN OINT 1 GM PACKET. TP ONE (00:45)
[2018-03-17 00:49] LABS: ALBUMIN 2.7 g/dL (3.4-5.0); DIRECT BILIRUBIN 0.2 mg/dL (0.0-0.2); TOTAL BILIRUBIN 0.6 mg/dL (0.2-1.0); TOTAL PROTEIN 6.5 g/dL (6.4-8.2)
[2018-03-17] MEDS ORDERED: FUROSEMIDE 40 MG/4 ML VIAL. IVP ONE (01:45)
[2018-03-17] MEDS ORDERED: ACETAMINOPHEN 500 MG TABLET PO ONE (01:45)
[2018-03-17] MEDS ORDERED: MORPHINE SULFATE 10 MG/ML VIAL. IV ONE (01:45)
--- NOTE | 2018-03-17 01:48 | PHYS DOC ---
Past Medical History Past Medical History: Arthritis, CHF, Diabetes-Type II, Hypertension, Pneumonia , Other Additional Past Medical Histor: HERNIATED DISC IN BACK,chronic back pain,RLS, BLE neurop,BACK FX Past Surgical History: Angioplasty, Tonsillectomy, Other Additional Past Surgical Histo: L ANKLE/WRIST ORIF,CARDIAC STENTS Alcohol Use: None Drug Use: None Adult General Chief Complaint Chief Complaint: SHORTNESS OF BREATH HPI HPI Patient is a 52 year old male who presents with shortness of breath. The patient has had worsening shortness of breath symptoms over the last 4 weeks. He describes dyspnea with exertion. He has had some intermittent swelling of the lower extremities as well. He does not have any chest pain. He does have a known history of heart failure and high blood pressure as well as coronary artery disease. He has been off all of his medications for over a year. The patient states he cannot afford these medications currently. He is presenting to the ER today primarily for shortness of breath and to assist getting back on his medical regimen. Review of Systems Review of Systems Constitutional: Denies fever or chills Eyes: Denies change in visual acuity HENT: Denies nasal congestion or sore throat Respiratory: Denies cough Cardiovascular: No additional information not addressed GI: Denies abdominal pain, nausea, vomiting Musculoskeletal: Denies back pain Integument: Denies rash or skin lesions Neurologic: Denies headache, focal weakness Endocrine: Denies polyuria or polydipsia All other systems were reviewed and found to be within normal limits, except as documented in this note. Current Medications Current Medications Current Medications Medications (Trade) Dose Ordered Sig/Jerri Start Time Stop Time Status Last Admin Dose Admin Acetaminophen (Tylenol) 1,000 mg 1X ONCE 03/17/18 01:45 03/17/18 01:46 UNV Furosemide (Lasix) 40 mg 1X ONCE 03/17/18 01:30 03/17/18 01:31 UNV Morphine Sulfate (Morphine Sulfate) 6 mg 1X ONCE 03/17/18 01:45 03/17/18 01:46 UNV Nitroglycerin (Nitro-Bid Oint) 1 inch 1X ONCE 03/17/18 00:45 03/17/18 00:46 DC 03/17/18 00:51 1 INCH Allergies Allergies Allergies Coded Allergies Type Severity Reaction Last Updated Verified No Known Drug Allergies 07/22/14 No Physical Exam Physical Exam Constitutional: Well developed, well nourished, no acute distress, non-toxic appearance HENT: Normocephalic, atraumatic, bilateral external ears normal, oropharynx moist Eyes: PERRLA, EOMI, conjunctiva normal Neck: Normal range of motion, no tenderness Cardiovascular:Heart rate regular rhythm Lungs & Thorax: Bilateral breath sounds clear to auscultation Abdomen: Bowel sounds normal, soft, no tenderness Skin: Warm, dry, no erythema Extremities: trace edema bilateral LE's Neurologic: Alert and oriented X 3 Psychologic: Affect normal Current Patient Data Vital Signs Vital Signs Date Time Temp Pulse Resp B/P (MAP) Pulse Ox O2 Delivery O2 Flow Rate FiO2 03/17/18 00:51 115 181/132 03/17/18 00:37 27 99 Room Air 03/17/18 00:02 97.7 97.7 Lab Values Laboratory Tests Test 03/16/18 23:58 03/17/18 00:23 03/17/18 00:26 Glucose (Fingerstick) 215 mg/dL (70-99) H White Blood Count 9.8 x10^3/uL (4.0-11.0) Red Blood Count 5.29 x10^6/uL (4.30-5.70) Hemoglobin 15.5 g/dL (13.0-17.5) Hematocrit 45.2 % (39.0-53.0) Mean Corpuscular Volume 86 fL (79-100) Mean Corpuscular Hemoglobin 29 pg (25-35) Mean Corpuscular Hemoglobin Concent 34 g/dL (31-37) Red Cell Distribution Width 14.1 % (11.5-14.5) Platelet Count 260 x10^3/uL (140-400) Neutrophils (%) (Auto) 73 % (31-73) Lymphocytes (%) (Auto) 21 % (24-48) L Monocytes (%) (Auto) 5 % (0-9) Eosinophils (%) (Auto) 1 % (0-3) Basophils (%) (Auto) 1 % (0-3) Neutrophils # (Auto) 7.1 x10^3uL (1.8-7.7) Lymphocytes # (Auto) 2.1 x10^3/uL (1.0-4.8) Monocytes # (Auto) 0.5 x10^3/uL (0.0-1.1) Eosinophils # (Auto) 0.1 x10^3/uL (0.0-0.7) Basophils # (Auto) 0.1 x10^3/uL (0.0-0.2) Sodium Level 140 mmol/L (136-145) Potassium Level 3.6 mmol/L (3.5-5.1) Chloride Level 104 mmol/L (98-107) Carbon Dioxide Level 27 mmol/L (21-32) Anion Gap 9 (6-14) Blood Urea Nitrogen 25 mg/dL (8-26) Creatinine 1.7 mg/dL (0.7-1.3) H Estimated GFR (Cockcroft-Gault) 42.7 Glucose Level 211 mg/dL (70-99) H Calcium Level 8.9 mg/dL (8.5-10.1) Total Bilirubin 0.6 mg/dL (0.2-1.0) Direct Bilirubin 0.2 mg/dL (0.0-0.2) Aspartate Amino Transferase (AST) 20 U/L (15-37) Alanine Aminotransferase (ALT) 16 U/L (16-63) Alkaline Phosphatase 107 U/L (46-116) Troponin I Quantitative 0.049 ng/mL (0.000-0.055) DV-Gnw-G-Type Natriuretic Peptide 33554 pg/mL (0-124) H Total Protein 6.5 g/dL (6.4-8.2) Albumin 2.7 g/dL (3.4-5.0) L Procalcitonin < 0.10 ng/mL (0.00-0.10) Lactic Acid Level 1.2 mmol/L (0.4-2.0) Laboratory Tests 03/17/18 00:23 Laboratory Tests 03/17/18 00:23 EKG EKG LVH, No STEMI Interpretation Time: 01:15 Radiology/Procedures Radiology/Procedures CXR: Pulmonary edema Course & Med Decision Making Course & Med Decision Making Pertinent Labs and Imaging studies reviewed. (See chart for details) Patient is evaluated in the ER for dyspnea. He has been off of all of his medications. He does have a blood pressure over 200 systolic on arrival to the ER. 1 inch of nitroglycerin was placed. The patient was given 40 of Lasix. His lab panel was negative for elevation of troponin. He did have a BNP over 21, 000. His EKG revealed LVH but no acute STEMI. Patient is admitted to the hospitalist service. Consult was placed for cardiology to evaluate. Patient was in no acute distress during the ED course. He did not have a new oxygen requirement. Dragon Disclaimer Dragon Disclaimer This electronic medical record was generated, in whole or in part, using a voice recognition dictation system. Departure Departure Referrals: NO PCP (PCP) SOWMYA MCGRATH DO Mar 17, 2018 01:48
[2018-03-17] MEDS ORDERED: ONDANSETRON PF 4 MG/2 ML VIAL. IV PRN ×2 (02:00→09:00)
[2018-03-17] MEDS ORDERED: CARVEDILOL 12.5 MG TABLET. PO ONE (02:00)
[2018-03-17] MEDS ORDERED: ACETAMINOPHEN 325 MG TABLET. PO PRN (02:00)
[2018-03-17] MEDS ORDERED: NITROGLYCERIN PREMIX 250 ML IV ONE (02:30)
--- NOTE | 2018-03-17 03:59 | EKG ---
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
[2018-03-17] MEDS: MORPHINE SULFATE 4 MG/ML VIAL. IV PRN ×2 (04:04→08:40)
--- NOTE | 2018-03-17 07:42 | RAD ---
Portable chest, 03/17/2018: HISTORY: Chest pain Comparison is made to a study from 04/20/2017. The depth of inspiration is not as good as on the previous study. The heart is at the upper limits of normal in size. There is tortuosity of the thoracic aorta. No pulmonary infiltrate is seen. There is a tiny unchanged radiopaque foreign body projected over the left apical region. There is no evidence of pleural fluid. IMPRESSION: 1. Borderline cardiomegaly. 2. Tortuous aorta. 3. No acute infiltrates Electronically signed by: Chevy Camacho MD (03/17/2018 7:39 AM) [facility]
[2018-03-17 08:13] LABS: CHOLESTEROL/HDL RATIO 7.6
--- NOTE | 2018-03-17 08:48 | PDOC2 ---
CARDIAC CONSULT DATE OF CONSULT Date of Consult DATE: 03/17/18 TIME: 08:30 REASON FOR CONSULT Reason for Consult: chf REFERRING PHYSICIAN Referring Physician: Marco SOURCE Source: Chart review, Patient HISTORY OF PRESENT ILLNESS HISTORY OF PRESENT ILLNESS This is a pleasant 52 yo male admitted for complains of shortness of breath. He has lost employment for about 2 yrs now and eventually could not afford follow ups and his medications. He finally stopped taking all of his medications at least 3 months ago. In the last week he has had progressive SOA. Then in the last week he has had left chest pressure but no nausea or vomiting but he felt that his heart was beating hard. Positive for orthopnea, PND and progressive leg swelling. Reports no fever or chills or any significant diaphoresus. He is significant for CAD, HLP, HTN, and DM2. He lives with his son right now. He verbalized that he is illiterate and has limited ability to read and write. PAST MEDICAL HISTORY Past Medical History Cardiovascular: CAD, CHF, HTN, Hyperlipidemia, Other (cardiomyopathy; LVEF 25% by echo 07/23/2014) Pulmonary: Other (PHYLLIS) CENTRAL NERVOUS SYSTEM: Other (RLS) GI: GERD Psych: Depression Musculoskeletal: Osteoarthritis, Other (chronic pain syndrome) Renal/: Chronic renal insuff Endocrine: Diabetes (2) Dermatology: Eczema PAST SURGICAL HISTORY Past Surgical History Tonsillectomy, Other (left ankle), PCI/BMS to LAD/RCA FAMILY HISTORY Family History Coronary Artery Disease (Brother in his 40s) SOCIAL HISTORY Social History Smoke: No ALCOHOL: none Drugs: None Lives: with Family CURRENT MEDICATIONS CURRENT MEDICATIONS Current Medications Medications (Trade) Dose Ordered Sig/Jerri Route PRN Reason Start Time Stop Time Status Last Admin Dose Admin Nitroglycerin (Nitro-Bid Oint) 1 inch 1X ONCE TP 03/17/18 00:45 03/17/18 00:46 DC 03/17/18 00:51 Furosemide (Lasix) 40 mg 1X ONCE IVP 03/17/18 01:45 03/17/18 01:47 DC 03/17/18 01:54 Morphine Sulfate (Morphine Sulfate) 6 mg 1X ONCE IV 03/17/18 01:45 03/17/18 01:47 DC 03/17/18 01:54 Acetaminophen (Tylenol) 1,000 mg 1X ONCE PO 03/17/18 01:45 03/17/18 01:47 DC 03/17/18 01:52 Carvedilol (Coreg) 12.5 mg ONCE ONCE PO 03/17/18 02:00 03/17/18 02:01 DC 03/17/18 02:04 Morphine Sulfate (Morphine Sulfate) 4 mg PRN Q2HR PRN IV PAIN 03/17/18 02:00 03/18/18 01:59 03/17/18 04:04 Nitroglycerin/ Dextrose 250 ml @ 0 mls/hr 1X ONCE IV 03/17/18 02:30 03/17/18 02:32 DC 03/17/18 02:27 ALLERGIES ALLERGIES: Coded Allergies: No Known Drug Allergies (Unverified , 07/22/14) ROS Review of System 14 point ROS evaluated with pertinent positives noted per HPI PHYSICAL EXAM General: Alert, Oriented X3, Cooperative, No acute distress HEENT: Atraumatic, Mucous membr. moist/pink Lungs: Clear to auscultation, Normal air movement Heart: Regular rate (SR), Other (3/6 systolic murmur to LLS border; S3) Abdomen: Soft, No tenderness Extremities: No cyanosis, Other (trace to 1+ bilateral LE pitting edema) Skin: No breakdown, No significant lesion Neuro: Normal speech, Sensation intact Psych/Mental Status: Mental status NL, Mood NL MUSCULOSKELETAL: Osteoarthritic changes both hands VITALS VITALS Vital Signs Date Time Temp Pulse Resp B/P (MAP) Pulse Ox O2 Delivery O2 Flow Rate FiO2 03/17/18 07:00 97.7 88 18 155/89 (111) 96 Room Air 97.7 LABS Lab: Laboratory Tests Test 03/16/18 23:58 03/17/18 00:23 03/17/18 00:26 03/17/18 04:45 Glucose (Fingerstick) 215 mg/dL (70-99) White Blood Count 9.8 x10^3/uL (4.0-11.0) Red Blood Count 5.29 x10^6/uL (4.30-5.70) Hemoglobin 15.5 g/dL (13.0-17.5) Hematocrit 45.2 % (39.0-53.0) Mean Corpuscular Volume 86 fL (79-100) Mean Corpuscular Hemoglobin 29 pg (25-35) Mean Corpuscular Hemoglobin Concent 34 g/dL (31-37) Red Cell Distribution Width 14.1 % (11.5-14.5) Platelet Count 260 x10^3/uL (140-400) Neutrophils (%) (Auto) 73 % (31-73) Lymphocytes (%) (Auto) 21 % (24-48) Monocytes (%) (Auto) 5 % (0-9) Eosinophils (%) (Auto) 1 % (0-3) Basophils (%) (Auto) 1 % (0-3) Neutrophils # (Auto) 7.1 x10^3uL (1.8-7.7) Lymphocytes # (Auto) 2.1 x10^3/uL (1.0-4.8) Monocytes # (Auto) 0.5 x10^3/uL (0.0-1.1) Eosinophils # (Auto) 0.1 x10^3/uL (0.0-0.7) Basophils # (Auto) 0.1 x10^3/uL (0.0-0.2) Sodium Level 140 mmol/L (136-145) Potassium Level 3.6 mmol/L (3.5-5.1) Chloride Level 104 mmol/L (98-107) Carbon Dioxide Level 27 mmol/L (21-32) Anion Gap 9 (6-14) Blood Urea Nitrogen 25 mg/dL (8-26) Creatinine 1.7 mg/dL (0.7-1.3) Estimated GFR (Cockcroft-Gault) 42.7 Glucose Level 211 mg/dL (70-99) Calcium Level 8.9 mg/dL (8.5-10.1) Total Bilirubin 0.6 mg/dL (0.2-1.0) Direct Bilirubin 0.2 mg/dL (0.0-0.2) Aspartate Amino Transf (AST/SGOT) 20 U/L (15-37) Alanine Aminotransferase (ALT/SGPT) 16 U/L (16-63) Alkaline Phosphatase 107 U/L (46-116) Troponin I Quantitative 0.049 ng/mL (0.000-0.055) 0.051 ng/mL (0.000-0.055) BC-Nut-F-Type Natriuretic Peptide 02870 pg/mL (0-124) Total Protein 6.5 g/dL (6.4-8.2) Albumin 2.7 g/dL (3.4-5.0) Procalcitonin < 0.10 ng/mL (0.00-0.10) Lactic Acid Level 1.2 mmol/L (0.4-2.0) Triglycerides Level 182 mg/dL (0-150) Cholesterol Level 235 mg/dL (0-200) LDL Cholesterol, Calculated 168 mg/dL (0-100) VLDL Cholesterol, Calculated 36 mg/dL (0-40) Non-HDL Cholesterol Calculated 204 mg/dL (0-129) HDL Cholesterol 31 mg/dL (40-60) Cholesterol/HDL Ratio 7.6 Thyroid Stimulating Hormone (TSH) 0.923 uIU/mL (0.358-3.74) Test 03/17/18 07:41 Glucose (Fingerstick) 146 mg/dL (70-99) ECHOCARDIOGRAM ECHOCARDIOGRAM <Conclusion> Left ventricle systolic function is mildly impaired. The Ejection Fraction is 40 -45%. There is mild to moderate global hypokinesis. DATE: 04/21/17 1227 STRESS TEST STRESS TEST Conclusion 1. No evidence of EKG changes to suggest ischemia with vasodilator testing. 2. Normal perfusion at stress/rest. 3. Mild LV dysfunction. EF 50% 4. Low to moderate risk for future CV events based on lower EF. DATE: 04/22/17 1306 HEART CATH HEART CATH Findings. Hemodynamics. Left ventricular pressure of 136/26, aortic root pressure 134/88. Coronaries. Left main. The left main had no lesions. Left anterior descending. The LAD had a mid 90% lesion. Left circumflex. The left circumflex had no lesions. Right coronary artery. The right coronary had a mid diffusely diseased lesion up to 80%. There was a second mid to distal lesion of 85%. <Conclusion> 2 vessel coronary artery disease. Successful stenting of the mid LAD decreasing a 90% lesion to 0%. Successful stenting of a distal right coronary artery lesion of 85% to 0% and a mid right coronary lesion of 80% to 0%. Bare-metal stents were placed. DATE: 03/08/15 1729 ASSESSMENT/PLAN ASSESSMENT/PLAN 1. Acute on chronic diastolic/systolic CHF: due to uncontrolled HTN precipitated by noncompliance 2. Chest pain: pressure suspect mainly to high BP. Trops nml. EKG SR with LVH/ LV strain, no acute changes. 3. Malignant HTN 4. Suspect CKD3 5. DM2/HLP: per PCP 6. CAD: PCI/BMS to LAD/RCA 7. Hx of cardiomyopathy: last known EF at 50% per MPI as above 8. Nontraumatic mechanical fall: 4 days ago. missed a step. 9. Noncompliance: due to financial constraints. Recommendations 1. TTE, TSH, lipids, UDS, A1C 2. Restart previous home meds. Continue lasix therapy 3. Discussed compliance and risk and complications of not taking meds. 4. lead assistant manager referral for outpt outreach clinic. GABRIEL CHOPRA APRN Mar 17, 2018 08:48
[2018-03-17] MEDS ORDERED: ISOSORBIDE MONONITRATE ER 30 MG TAB.ER.24H PO SCH ×2 (09:00)
[2018-03-17] MEDS ORDERED: TEMAZEPAM 15 MG CAPSULE PO PRN (09:00)
[2018-03-17] MEDS ORDERED: CARVEDILOL 12.5 MG TABLET. PO SCH (09:00)
[2018-03-17] MEDS ORDERED: LABETALOL 20 MG/4 ML DISP.SYRIN. IVP PRN (09:00)
[2018-03-17] MEDS: MORPHINE ER 30 MG TABLET.ER PO SCH ×2 (09:00→21:11)
[2018-03-17] MEDS ORDERED: DEXTROSE 50% 25 GM / 50ML DISP.SYRIN. IV PRN (09:00)
[2018-03-17] MEDS ORDERED: HYDROcodone/APAP 10/325 1 TAB TABLET PO PRN (09:15)
[2018-03-17 09:23] LABS: BILIRUBIN,URINE NEGATIVE (NEG); CLARITY,URINE CLEAR; COLOR,URINE YELLOW; NITRITE,URINE NEGATIVE (NEG); PH,URINE 5.5; PROTEIN,URINE >=300 mg/dL (NEG-TRACE); UROBILINOGEN,URINE 0.2 mg/dL (0.2 mg/dL)
[2018-03-17 09:29] LABS: AMPHETAMINE/METHAMPHETAMINE NEG (NEG); BARBITURATES NEG (NEG); BENZODIAZEPINES NEG (NEG); CANNABINOIDS NEG (NEG); COCAINE NEG (NEG); METHADONE NEG (NEG); OPIATES POS (NEG); PHENCYCLIDINE NEG (NEG)
[2018-03-17 09:47] LABS: BACTERIA,URINE FEW /HPF (0-FEW); HYALINE CASTS, URINE FEW /HPF; WBC,URINE OCC /HPF (0-4)
--- NOTE | 2018-03-17 09:53 | PDOC1 ---
History and Physical Date of Admission Date of Admission DATE: 03/17/18 TIME: 09:48 Identification/Chief Complaint Chief Complaint SOA Source Source: Caregiver, Chart review, Patient History of Present Illness History of Present Illness 52-year-old male with history of CHF and dyslipidemia supposed to be on meds but admitted he ran out of for 3 months, comes in because of SOA acute onset, no chest pain, no abdominal pain, no diarrhea, no diaphoresis, no presyncopal symptoms. Denies any leg edema. Creatinine 1.7 with chest x-ray findings of CHF. No leg edema. Blood pressure on the high side. Lipids are also deranged. Feels better after ER intervention. Cards consulted, along with renal because of creatinine 1.7. Looking at home meds, supposed to be on HCTZ, arb etc which I have held because of the creatinine. We'll await renal Rounds. Can also check hemoglobin A1c. Echocardiogram ordered by cardiology Otherwise he is nontoxic appearing and feels better. On nitro drip at CVICU. No smoking, street drugs or alcohol Past Medical History Cardiovascular: CAD, CHF, HTN, Hyperlipidemia, Other Pulmonary: Other CENTRAL NERVOUS SYSTEM: Other GI: GERD Psych: Depression Musculoskeletal: Osteoarthritis, Other Infectious disease: No pertinent hx Renal/: Chronic renal insuff Endocrine: Diabetes Past Surgical History Past Surgical History: Tonsillectomy, Other Family History Family History: Coronary Artery Disease Social History Smoke: No ALCOHOL: none Drugs: None Current Problem List Problem List Problems Medical Problems: (1) Dyspnea Status: Acute (2) Elevated serum creatinine Status: Acute Current Medications Current Medications Current Medications Nitroglycerin (Nitro-Bid Oint) 1 inch 1X ONCE TP Last administered on at 00:51; Start 03/17/18 at 00:45; Stop 03/17/18 at 00:46; Status DC Furosemide (Lasix) 40 mg 1X ONCE IVP Last administered on 03/17/18at 01:54; Start 03/17/18 at 01:45; Stop 03/17/18 at 01:47; Status DC Morphine Sulfate (Morphine Sulfate) 6 mg 1X ONCE IV Last administered on 03/17at 01:54; Start 03/17/18 at 01:45; Stop 03/17/18 at 01:47; Status DC Acetaminophen (Tylenol) 1,000 mg 1X ONCE PO Last administered on 03/17/18at 01 :52; Start 03/17/18 at 01:45; Stop 03/17/18 at 01:47; Status DC Carvedilol (Coreg) 12.5 mg ONCE ONCE PO Last administered on 03/17/18at 02:04 ; Start 03/17/18 at 02:00; Stop 03/17/18 at 02:01; Status DC Ondansetron HCl (Zofran) 4 mg PRN Q8HRS PRN IV NAUSEA/VOMITING; Start at 02:00; Stop 03/17/18 at 08:51; Status DC Morphine Sulfate (Morphine Sulfate) 4 mg PRN Q2HR PRN IV PAIN Last administered on 03/17/18at 08:40; Start 03/17/18 at 02:00; Stop 03/18/18 at 01 :59 Acetaminophen (Tylenol) 650 mg PRN Q4HRS PRN PO FEVER Last administered on at 08:39; Start 03/17/18 at 02:00; Stop 03/18/18 at 01:59 Nitroglycerin/ Dextrose 250 ml @ 0 mls/hr 1X ONCE IV Last administered on at 02:27; Start 03/17/18 at 02:30; Stop 03/17/18 at 08:52; Status DC Influenza Virus Vaccine (Afluria Trivalent [id number] Syringe) 0.5 ml ONCE ONCE VAX IM ; Start 03/17/18 at 09:00; Stop 03/17/18 at 09:01; Status DC Ondansetron HCl (Zofran) 4 mg PRN Q6HRS PRN IV NAUSEA/VOMITING; Start at 09:00 Labetalol HCl (Normodyne Iv Push) 20 mg PRN Q2HR PRN IVP HYPERTENSION, SEE COMMENTS; Start 03/17/18 at 09:00 Carvedilol (Coreg) 12.5 mg BIDWMEALS PO ; Start 03/17/18 at 09:00 Atorvastatin Calcium (Lipitor) 40 mg QHS PO ; Start 03/17/18 at 21:00 Atorvastatin Calcium (Lipitor) 80 mg QHS PO ; Start 03/17/18 at 21:00; Status UNV Aspirin (Ecotrin) 81 mg DAILYWBKFT PO ; Start 03/17/18 at 09:00 Clopidogrel Bisulfate (Plavix) 75 mg DAILYWBKFT PO ; Start 03/17/18 at 09:15 Lisinopril (Prinivil) 20 mg DAILY PO ; Start 03/17/18 at 09:00 Cyclobenzaprine HCl (Flexeril) 10 mg TID PO ; Start 03/17/18 at 09:00 Isosorbide Mononitrate (Imdur) 30 mg DAILY PO ; Start 03/17/18 at 09:00 Isosorbide Mononitrate (Imdur) 60 mg DAILY PO ; Start 03/17/18 at 09:00; Status UNV Morphine Sulfate (Ms Contin) 30 mg BID PO ; Start 03/17/18 at 09:00 Temazepam (Restoril) 30 mg HS PRN PO INSOMNIA; Start 03/17/18 at 09:00 Amitriptyline HCl (Elavil) 100 mg QHS PO ; Start 03/17/18 at 21:00 Non-Formulary Medication (Carvedilol ) 25 mg BIDWMEALS PO ; Start 03/17/18 at 17:00; Status UNV Gabapentin (Neurontin) 900 mg TID PO ; Start 03/17/18 at 09:30 Glimepiride (Amaryl) 4 mg BIDWMEALS PO ; Start 03/17/18 at 09:30 Acetaminophen/ Hydrocodone Bitart (Lortab 10/325) 2 tab PRN Q4HRS PRN PO PAIN; Start 03/17/18 at 09:15 Acetaminophen/ Hydrocodone Bitart (Lortab 10/325) 1 tab PRN Q6HRS PRN PO MODERATE PAIN; Start 03/17/18 at 09:15 Ropinirole HCl (Requip) 2 mg QHS PO ; Start 03/17/18 at 21:00 Linagliptin (Tradjenta) 5 mg DAILY PO ; Start 03/17/18 at 09:00 Trazodone HCl (Desyrel) 150 mg QHS PO ; Start 03/17/18 at 21:00 Non-Formulary Medication ([Aspirin] ) 325 mg DAILYWBKFT PO ; Start 03/18/18 at 08:00; Status UNV Insulin Human Lispro (HumaLOG) 0-9 UNITS TIDWMEALS SQ ; Start 03/17/18 at 12:00 Dextrose (Dextrose 50%-Water Syringe) 12.5 gm PRN Q15MIN PRN IV SEE COMMENTS; Start 03/17/18 at 09:00 Active Scripts Active Isosorbide Mononitrate Er (Isosorbide Mononitrate) 30 Mg Tab.er.24h 60 Mg PO DAILY Atorvastatin Calcium 40 Mg Tablet 80 Mg PO QHS Plavix (Clopidogrel Bisulfate) 75 Mg Tablet 75 Mg PO DAILYWBKFT [Aspirin] 325 MG Tablet 325 Mg PO DAILYWBKFT Lortab 10-325 mg Tablet (Hydrocodone/Acetaminophen) 1 Each Tablet 1 Tab PO PRN Q6HRS PRN Januvia (Sitagliptin Phosphate) 100 Mg Tablet 1 Tab PO DAILY Glimepiride 4 Mg Tablet 1 Tab PO BID Reported Ms Contin (Morphine Sulfate) 30 Mg Tablet.er 1 Tab PO BID Temazepam 30 Mg Capsule 30 Mg PO HS PRN Carvedilol 25 Mg Tablet 25 Mg PO BIDWMEALS Cyclobenzaprine Hcl 10 Mg Tablet 1 Tab PO TID Tribenzor 40-5-12.5 Mg Tablet (Olmesartan/Amlodipin/Hcthiazid) 1 Each Tablet 1 Each PO TID Ropinirole Hcl 2 Mg Tablet 2 Mg PO QHS Neurontin (Gabapentin) 300 Mg Capsule 3 Cap PO TID Hydrocodone-Apap 10-300 (Hydrocodone Bit/Acetaminophen) 1 Each Tablet 2 Tab PO Q4HRS PRN Amitriptyline Hcl 100 Mg Tablet 1 Tab PO QHS Trazodone Hcl 150 Mg Tablet 1 Tab PO QHS Allergies Allergies: Coded Allergies: No Known Drug Allergies (Unverified , 07/22/14) ROS Review of System As per history of present illness, the rest of ROS 14 point negative Physical Exam General: Alert, Oriented X3, Cooperative, No acute distress HEENT: Atraumatic, PERRLA, EOMI, Mucous membr. moist/pink Lungs: Normal air movement, Other (decrease at the bases, some crackles mild, no wheezing) Heart: S1S2, RRR, no thrills, no rubs, no gallops, no murmurs Abdomen: Normal bowel sounds, Soft, No tenderness, No hepatosplenomegaly, No masses Male Genitals Exam: normal genitalia, normal prostate Rectal Exam: not examined PELVIC: Nml ext genitalia Extremities: No clubbing, No cyanosis, No edema, Normal pulses, No tenderness/ swelling Skin: No rashes, No breakdown, No significant lesion Neuro: Normal gait, Normal speech, Strength at 5/5 X4 ext, Normal tone, Sensation intact, Cranial nerves 3-12 NL, Reflexes 2+ Psych/Mental Status: Mental status NL, Mood NL Vitals Vitals Vital Signs Date Time Temp Pulse Resp B/P (MAP) Pulse Ox O2 Delivery O2 Flow Rate FiO2 03/17/18 08:40 Room Air 03/17/18 07:00 97.7 88 18 155/89 (111) 96 97.7 Labs Labs Laboratory Tests Test 03/16/18 23:58 03/17/18 00:23 03/17/18 00:26 03/17/18 04:45 Glucose (Fingerstick) 215 mg/dL (70-99) White Blood Count 9.8 x10^3/uL (4.0-11.0) Red Blood Count 5.29 x10^6/uL (4.30-5.70) Hemoglobin 15.5 g/dL (13.0-17.5) Hematocrit 45.2 % (39.0-53.0) Mean Corpuscular Volume 86 fL (79-100) Mean Corpuscular Hemoglobin 29 pg (25-35) Mean Corpuscular Hemoglobin Concent 34 g/dL (31-37) Red Cell Distribution Width 14.1 % (11.5-14.5) Platelet Count 260 x10^3/uL (140-400) Neutrophils (%) (Auto) 73 % (31-73) Lymphocytes (%) (Auto) 21 % (24-48) Monocytes (%) (Auto) 5 % (0-9) Eosinophils (%) (Auto) 1 % (0-3) Basophils (%) (Auto) 1 % (0-3) Neutrophils # (Auto) 7.1 x10^3uL (1.8-7.7) Lymphocytes # (Auto) 2.1 x10^3/uL (1.0-4.8) Monocytes # (Auto) 0.5 x10^3/uL (0.0-1.1) Eosinophils # (Auto) 0.1 x10^3/uL (0.0-0.7) Basophils # (Auto) 0.1 x10^3/uL (0.0-0.2) Sodium Level 140 mmol/L (136-145) Potassium Level 3.6 mmol/L (3.5-5.1) Chloride Level 104 mmol/L (98-107) Carbon Dioxide Level 27 mmol/L (21-32) Anion Gap 9 (6-14) Blood Urea Nitrogen 25 mg/dL (8-26) Creatinine 1.7 mg/dL (0.7-1.3) Estimated GFR (Cockcroft-Gault) 42.7 Glucose Level 211 mg/dL (70-99) Calcium Level 8.9 mg/dL (8.5-10.1) Total Bilirubin 0.6 mg/dL (0.2-1.0) Direct Bilirubin 0.2 mg/dL (0.0-0.2) Aspartate Amino Transf (AST/SGOT) 20 U/L (15-37) Alanine Aminotransferase (ALT/SGPT) 16 U/L (16-63) Alkaline Phosphatase 107 U/L (46-116) Troponin I Quantitative 0.049 ng/mL (0.000-0.055) 0.051 ng/mL (0.000-0.055) VI-Snk-T-Type Natriuretic Peptide 50375 pg/mL (0-124) Total Protein 6.5 g/dL (6.4-8.2) Albumin 2.7 g/dL (3.4-5.0) Procalcitonin < 0.10 ng/mL (0.00-0.10) Lactic Acid Level 1.2 mmol/L (0.4-2.0) Triglycerides Level 182 mg/dL (0-150) Cholesterol Level 235 mg/dL (0-200) LDL Cholesterol, Calculated 168 mg/dL (0-100) VLDL Cholesterol, Calculated 36 mg/dL (0-40) Non-HDL Cholesterol Calculated 204 mg/dL (0-129) HDL Cholesterol 31 mg/dL (40-60) Cholesterol/HDL Ratio 7.6 Thyroid Stimulating Hormone (TSH) 0.923 uIU/mL (0.358-3.74) Test 03/17/18 07:41 03/17/18 08:05 03/17/18 08:45 Glucose (Fingerstick) 146 mg/dL (70-99) Troponin I Quantitative 0.046 ng/mL (0.000-0.055) Urine Collection Type Unknown Urine Color Yellow Urine Clarity Clear Urine pH 5.5 Urine Specific Britton 1.015 Urine Protein >=300 mg/dL (NEG-TRACE) Urine Glucose (UA) 100 mg/dL (NEG) Urine Ketones (Stick) Negative mg/dL (NEG) Urine Blood Small (NEG) Urine Nitrite Negative (NEG) Urine Bilirubin Negative (NEG) Urine Urobilinogen Dipstick 0.2 mg/dL (0.2 mg/dL) Urine Leukocyte Esterase Negative (NEG) Urine RBC 1-2 /HPF (0-2) Urine WBC Occ /HPF (0-4) Urine Renal Epithelial Cells Occ /LPF Urine Bacteria Few /HPF (0-FEW) Urine Hyaline Casts Few /HPF Urine Mucus Slight /LPF Urine Opiates Screen Pos (NEG) Urine Methadone Screen Neg (NEG) Urine Barbiturates Neg (NEG) Urine Phencyclidine Screen Neg (NEG) Urine Amphetamine/Methamphetamine Neg (NEG) Urine Benzodiazepines Screen Neg (NEG) Urine Cocaine Screen Neg (NEG) Urine Cannabinoids Screen Neg (NEG) Urine Ethyl Alcohol Neg (NEG) Laboratory Tests Test 03/16/18 23:58 03/17/18 00:23 03/17/18 00:26 03/17/18 04:45 Glucose (Fingerstick) 215 mg/dL (70-99) White Blood Count 9.8 x10^3/uL (4.0-11.0) Red Blood Count 5.29 x10^6/uL (4.30-5.70) Hemoglobin 15.5 g/dL (13.0-17.5) Hematocrit 45.2 % (39.0-53.0) Mean Corpuscular Volume 86 fL (79-100) Mean Corpuscular Hemoglobin 29 pg (25-35) Mean Corpuscular Hemoglobin Concent 34 g/dL (31-37) Red Cell Distribution Width 14.1 % (11.5-14.5) Platelet Count 260 x10^3/uL (140-400) Neutrophils (%) (Auto) 73 % (31-73) Lymphocytes (%) (Auto) 21 % (24-48) Monocytes (%) (Auto) 5 % (0-9) Eosinophils (%) (Auto) 1 % (0-3) Basophils (%) (Auto) 1 % (0-3) Neutrophils # (Auto) 7.1 x10^3uL (1.8-7.7) Lymphocytes # (Auto) 2.1 x10^3/uL (1.0-4.8) Monocytes # (Auto) 0.5 x10^3/uL (0.0-1.1) Eosinophils # (Auto) 0.1 x10^3/uL (0.0-0.7) Basophils # (Auto) 0.1 x10^3/uL (0.0-0.2) Sodium Level 140 mmol/L (136-145) Potassium Level 3.6 mmol/L (3.5-5.1) Chloride Level 104 mmol/L (98-107) Carbon Dioxide Level 27 mmol/L (21-32) Anion Gap 9 (6-14) Blood Urea Nitrogen 25 mg/dL (8-26) Creatinine 1.7 mg/dL (0.7-1.3) Estimated GFR (Cockcroft-Gault) 42.7 Glucose Level 211 mg/dL (70-99) Calcium Level 8.9 mg/dL (8.5-10.1) Total Bilirubin 0.6 mg/dL (0.2-1.0) Direct Bilirubin 0.2 mg/dL (0.0-0.2) Aspartate Amino Transf (AST/SGOT) 20 U/L (15-37) Alanine Aminotransferase (ALT/SGPT) 16 U/L (16-63) Alkaline Phosphatase 107 U/L (46-116) Troponin I Quantitative 0.049 ng/mL (0.000-0.055) 0.051 ng/mL (0.000-0.055) GS-Xrt-E-Type Natriuretic Peptide 98781 pg/mL (0-124) Total Protein 6.5 g/dL (6.4-8.2) Albumin 2.7 g/dL (3.4-5.0) Procalcitonin < 0.10 ng/mL (0.00-0.10) Lactic Acid Level 1.2 mmol/L (0.4-2.0) Triglycerides Level 182 mg/dL (0-150) Cholesterol Level 235 mg/dL (0-200) LDL Cholesterol, Calculated 168 mg/dL (0-100) VLDL Cholesterol, Calculated 36 mg/dL (0-40) Non-HDL Cholesterol Calculated 204 mg/dL (0-129) HDL Cholesterol 31 mg/dL (40-60) Cholesterol/HDL Ratio 7.6 Thyroid Stimulating Hormone (TSH) 0.923 uIU/mL (0.358-3.74) Test 03/17/18 07:41 03/17/18 08:05 03/17/18 08:45 Glucose (Fingerstick) 146 mg/dL (70-99) Troponin I Quantitative 0.046 ng/mL (0.000-0.055) Urine Collection Type Unknown Urine Color Yellow Urine Clarity Clear Urine pH 5.5 Urine Specific Britton 1.015 Urine Protein >=300 mg/dL (NEG-TRACE) Urine Glucose (UA) 100 mg/dL (NEG) Urine Ketones (Stick) Negative mg/dL (NEG) Urine Blood Small (NEG) Urine Nitrite Negative (NEG) Urine Bilirubin Negative (NEG) Urine Urobilinogen Dipstick 0.2 mg/dL (0.2 mg/dL) Urine Leukocyte Esterase Negative (NEG) Urine RBC 1-2 /HPF (0-2) Urine WBC Occ /HPF (0-4) Urine Renal Epithelial Cells Occ /LPF Urine Bacteria Few /HPF (0-FEW) Urine Hyaline Casts Few /HPF Urine Mucus Slight /LPF Urine Opiates Screen Pos (NEG) Urine Methadone Screen Neg (NEG) Urine Barbiturates Neg (NEG) Urine Phencyclidine Screen Neg (NEG) Urine Amphetamine/Methamphetamine Neg (NEG) Urine Benzodiazepines Screen Neg (NEG) Urine Cocaine Screen Neg (NEG) Urine Cannabinoids Screen Neg (NEG) Urine Ethyl Alcohol Neg (NEG) VTE Prophylaxis Ordered VTE Prophylaxis Devices: Yes VTE Pharmacological Prophylaxi: Yes Assessment/Plan Assessment/Plan Acute CHF exacerbation, unknown type - echo pending CAD, hypertension, diabetes on insulin AK I on CK D possibly Hypertensive urgency POA Mixed dyslipidemia PLAN: control Pressure Continue home meds including statin and blood pressure meds except HCTZ and ARB which I held because of the creatinine 1.7 Avoid nephrotoxins Cardiology and renal consulted Monitor BMP Nitro drip ff up echo 2 Midnights admit CVICU Further conditions pending above course VERITO TINAJERO MD Mar 17, 2018 09:53
[2018-03-17] MEDS: CLOPIDOGREL BISULFATE 75 MG TABLET PO SCH (10:05)
[2018-03-17] MEDS: CYCLOBENZAPRINE 10 MG TABLET. PO SCH ×3 (10:05→21:10)
[2018-03-17] MEDS: HYDROcodone/APAP 10/325 1 TAB TABLET PO PRN (10:05)
[2018-03-17] MEDS: ASPIRIN ENTERIC COATED 81 MG TABLET.DR. PO SCH (10:06)
[2018-03-17] MEDS: GABAPENTIN 300 MG CAPSULE. PO SCH ×3 (10:06→21:11)
[2018-03-17] MEDS: LINAGLIPTIN 5 MG TABLET PO SCH (10:07)
[2018-03-17] MEDS: LISINOPRIL 20 MG TABLET PO SCH (10:07)
[2018-03-17] MEDS: GLIMEPIRIDE 2 MG TABLET. PO SCH ×2 (10:08→17:24)
--- NOTE | 2018-03-17 11:21 | CARD ---
MR#: [id number] Date of Study: 03/17/2018 Ordering Physician: GABRIEL CHOPRA, Referring Physician: PUMA ROSS, Tech: Carmella Wilkes ONELIA APPROVED REPORT EXAM: Two-dimensional and M-mode echocardiogram with Doppler and color Doppler. Other Information Quality : Excellent INDICATION Cardiac Disease: CAD Congestive Heart Failure 2D DIMENSIONS RVDd3.2 (2.9-3.5cm)Left Atrium(2D)4.5 (1.6-4.0cm) IVSd1.5 (0.7-1.1cm)Aortic Root(2D)3.6 (2.0-3.7cm) LVDd5.6 (3.9-5.9cm)LVOT Diameter2.2 (1.8-2.4cm) PWd1.6 (0.7-1.1cm)LVDs5.1 (2.5-4.0cm) FS (%) 8.8 %SV29.6 ml LVEF(%)19.2 (>50%) M-Mode DIMENSIONS LVDd5.76 (4.0-5.6cm)MV EPSS2.0 (<0.5cm) FS (%) 4 %LVDs5.51 (2.0-3.8cm) LVEF(%)10 (>50%) Aortic Valve AoV Peak Santi.99.6cm/sAoV VTI14.9cm AO Peak GR.4.0mmHgLVOT Peak Santi.60.5cm/s LVOT VTI 9.51cmAO Mean GR.3mmHg LALO (VMAX)2.70fm3SPH (VTI)2.44cm2 Mitral Valve MV E Aggsawop287.6cm/sMV DECEL RVSO302he MV A Gsomyqih04.2cm/sMV AFF59rh E/A Ratio2.5MVA (PHT)7.50cm2 TDI E/Lateral E'21.6E/Medial E'25.9 Tricuspid Valve TR P. Azpcspxc449cv/sRAP [id number] TR Peak Gr.[id number] LEFT VENTRICLE The left ventricle is normal size. There is mild to moderate concentric left ventricular hypertrophy. Left ventricle ejection fraction is severely impaired. The Ejection Fraction is 15-20%. There is sev ere global hypokinesis of the left ventricle. Transmitral Doppler flow pattern is restrictive diastol ic dysfunction. RIGHT VENTRICLE The right ventricle is normal size. The right ventricular systolic function is normal. ATRIA The left atrium is mildly dilated. The right atrium is mildly dilated. The interatrial septum is inta ct with no evidence for an atrial septal defect or patent foramen ovale as noted on 2-D or Doppler im aging. AORTIC VALVE The aortic valve is normal in structure and function. Doppler and Color Flow revealed trace aortic re gurgitation. There is no significant aortic valvular stenosis. MITRAL VALVE The mitral valve is normal in structure and function. There is no evidence of mitral valve prolapse. There is no mitral valve stenosis. Doppler and Color-flow revealed mild mitral regurgitation. TRICUSPID VALVE The tricuspid valve is normal in structure and function. Doppler and Color Flow revealed mild tricusp id regurgitation. There is moderate pulmonary hypertension. The PA pressure was estimated at 42 mmHg. There is no tricuspid valve stenosis. PULMONIC VALVE The pulmonary valve is normal in structure and function. Doppler and Color Flow revealed trace pulmon ic valvular regurgitation. There is no pulmonic valvular stenosis. GREAT VESSELS The aortic root is normal in size. The ascending aorta is normal in size. The IVC is normal in size a nd collapses >50% with inspiration. PERICARDIAL EFFUSION There is no evidence of significant pericardial effusion. Critical Notification Critical Value: No <Conclusion> Left ventricle ejection fraction is severely impaired. The Ejection Fraction is 15-20%. The left atrium is mildly dilated. Mild mitral regurgitation. Mild tricuspid regurgitation. The PA pressure was estimated at 42 mmHg. There is no evidence of significant pericardial effusion. Signed by : Amish Zepeda, Electronically Approved : 03/17/2018 11:20:01
[2018-03-17] MEDS: INSULIN LISPRO 300 UNITS/3 ML INSULN.PEN. SQ SCH ×2 (12:00→17:00)
[2018-03-17] MEDS ORDERED: ISOSORBIDE MONONITRATE ER 30 MG TAB.ER.24H PO ONE (15:15)
[2018-03-17] MEDS ORDERED: NON FORMULARY ITEM (Carvedilol 25 MG) PO SCH (17:00)
[2018-03-17] MEDS: CARVEDILOL 12.5 MG TABLET. PO SCH (17:23)
[2018-03-17] MEDS: FUROSEMIDE 40 MG/4 ML VIAL. IVP SCH (17:23)
[2018-03-17 20:10] LABS: HEMOGLOBIN A1C 7.6 % (4.8-5.6)
[2018-03-17] MEDS ORDERED: ATORVASTATIN CALCIUM 40 MG TABLET. PO SCH (21:00)
[2018-03-17] MEDS ORDERED: traZODone 100 MG TABLET. PO SCH (21:00)
[2018-03-17] MEDS: rOPINIRole 1 MG TABLET. PO SCH (21:11)
[2018-03-17] MEDS: ATORVASTATIN CALCIUM 40 MG TABLET. PO SCH (21:11)
[2018-03-17] MEDS: AMITRIPTYLINE HCL 50 MG TABLET PO SCH (21:12)
[2018-03-18 03:10] VITALS: BP 128/74
[2018-03-18 05:04] LABS: BASO # 0.1 x10^3/uL (0.0-0.2); BASO % 1 % (0-3); EOS # 0.2 x10^3/uL (0.0-0.7); EOS % 2 % (0-3); HEMATOCRIT 39.1 % (39.0-53.0); HEMOGLOBIN 13.5 g/dL (13.0-17.5); LYMPH % 22 % (24-48); MEAN CORPUSCULAR HEMOGLOBIN 29 pg (25-35); MEAN CORPUSCULAR HGB CONC 35 g/dL (31-37); MEAN CORPUSCULAR VOLUME 85 fL (79-100); MONO # 0.9 x10^3/uL (0.0-1.1); MONO % 10 % (0-9); NEUT % 66 % (31-73); PLATELET COUNT 219 x10^3/uL (140-400); RED BLOOD COUNT 4.57 x10^6/uL (4.30-5.70); RED CELL DISTRIBUTION WIDTH 14.5 % (11.5-14.5); WHITE BLOOD COUNT 9.2 x10^3/uL (4.0-11.0)
[2018-03-18 05:19] LABS: CALCIUM 8.5 mg/dL (8.5-10.1); CREATININE 2.1 mg/dL (0.7-1.3); GFR 33.5; MAGNESIUM 1.8 mg/dL (1.8-2.4); POTASSIUM 3.3 mmol/L (3.5-5.1)
[2018-03-18 07:44] VITALS: BP 155/104
[2018-03-18] MEDS ORDERED: ASPIRIN 325 MG PO SCH (08:00)
[2018-03-18] MEDS: INSULIN LISPRO 300 UNITS/3 ML INSULN.PEN. SQ SCH ×3 (08:00→17:00)
[2018-03-18] MEDS: FUROSEMIDE 40 MG/4 ML VIAL. IVP SCH (08:32)
[2018-03-18] MEDS: CLOPIDOGREL BISULFATE 75 MG TABLET PO SCH (08:33)
[2018-03-18] MEDS: CARVEDILOL 12.5 MG TABLET. PO SCH ×2 (08:33→17:46)
[2018-03-18] MEDS: LINAGLIPTIN 5 MG TABLET PO SCH (08:33)
[2018-03-18] MEDS: GABAPENTIN 300 MG CAPSULE. PO SCH ×3 (08:33→20:32)
[2018-03-18] MEDS: ASPIRIN ENTERIC COATED 81 MG TABLET.DR. PO SCH (08:34)
[2018-03-18] MEDS: GLIMEPIRIDE 2 MG TABLET. PO SCH ×2 (08:34→17:45)
[2018-03-18] MEDS: ISOSORBIDE MONONITRATE ER 30 MG TAB.ER.24H PO SCH (08:34)
[2018-03-18] MEDS: LISINOPRIL 20 MG TABLET PO SCH (08:34)
[2018-03-18] MEDS: CYCLOBENZAPRINE 10 MG TABLET. PO SCH ×3 (09:00→20:31)
[2018-03-18] MEDS: MORPHINE ER 30 MG TABLET.ER PO SCH (09:00)
[2018-03-18 11:08] VITALS: BP 92/68
--- NOTE | 2018-03-18 12:41 | PDOC ---
PROGRESS NOTES Chief Complaint Chief Complaint severe systolic CM with EF 10-15% by echo (03/17/18) CAD, hypertension, diabetes on insulin AK I on CK D possibly Hypertensive urgency POA Mixed dyslipidemia NArc dependence History of Present Illness History of Present Illness So sleepy today Med list reviewed getting Tenazepam 150 daily at bedtime, gabapentin 900mgs 3 times a day, MS Contin twice a day, and Lortab 10mgs Family distraught about his narcotic dependence-would afford pain meds but not cardiac meds Echocardiogram I have discussed and provided with family a copy at bedside, EF 10-15% Plans of defibrillator by cards while in house Plan: DC MS Contin Cutback gabapentin to 600mg 3 times a day from 900 mgs 3 times a day Make insomnia medication when necessary instead of scheduled I did leave alone Elavil 100 by mouth daily at bedtime DC 2 tablets of the 10 mg Lortab-just do 1 tablet prn Defibrillator plans per cardiology On lasix IV twice a day Monitor lites while diuresing Compliance needs to be emphasized when fully awake Vitals Vitals Vital Signs Date Time Temp Pulse Resp B/P (MAP) Pulse Ox O2 Delivery O2 Flow Rate FiO2 03/18/18 11:08 97.4 82 12 92/68 (76) 99 Room Air 97.4 Physical Exam General: Alert, Oriented X3, Cooperative, No acute distress Heart: Regular rate (SR), Other (3/6 systolic murmur to LLS border; S3) Lungs: Clear, Other Abdomen: Normal bowel sounds, Soft, No tenderness, No hepatosplenomegaly, No masses Extremities: No clubbing, No cyanosis, No edema, Normal pulses, No tenderness/ swelling Skin: No rashes, No breakdown, No significant lesion Labs LABS Laboratory Tests Test 03/17/18 17:22 03/17/18 21:16 03/18/18 04:50 03/18/18 07:39 Glucose (Fingerstick) 90 mg/dL (70-99) 87 mg/dL (70-99) 81 mg/dL (70-99) White Blood Count 9.2 x10^3/uL (4.0-11.0) Red Blood Count 4.57 x10^6/uL (4.30-5.70) Hemoglobin 13.5 g/dL (13.0-17.5) Hematocrit 39.1 % (39.0-53.0) Mean Corpuscular Volume 85 fL (79-100) Mean Corpuscular Hemoglobin 29 pg (25-35) Mean Corpuscular Hemoglobin Concent 35 g/dL (31-37) Red Cell Distribution Width 14.5 % (11.5-14.5) Platelet Count 219 x10^3/uL (140-400) Neutrophils (%) (Auto) 66 % (31-73) Lymphocytes (%) (Auto) 22 % (24-48) Monocytes (%) (Auto) 10 % (0-9) Eosinophils (%) (Auto) 2 % (0-3) Basophils (%) (Auto) 1 % (0-3) Neutrophils # (Auto) 6.0 x10^3uL (1.8-7.7) Lymphocytes # (Auto) 2.0 x10^3/uL (1.0-4.8) Monocytes # (Auto) 0.9 x10^3/uL (0.0-1.1) Eosinophils # (Auto) 0.2 x10^3/uL (0.0-0.7) Basophils # (Auto) 0.1 x10^3/uL (0.0-0.2) Sodium Level 141 mmol/L (136-145) Potassium Level 3.3 mmol/L (3.5-5.1) Chloride Level 106 mmol/L (98-107) Carbon Dioxide Level 28 mmol/L (21-32) Anion Gap 7 (6-14) Blood Urea Nitrogen 28 mg/dL (8-26) Creatinine 2.1 mg/dL (0.7-1.3) Estimated GFR (Cockcroft-Gault) 33.5 Glucose Level 76 mg/dL (70-99) Calcium Level 8.5 mg/dL (8.5-10.1) Magnesium Level 1.8 mg/dL (1.8-2.4) Review of Systems Review of Systems Drowsy Assessment and Plan Assessmemt and Plan Problems Medical Problems: (1) Dyspnea Status: Acute (2) Elevated serum creatinine Status: Acute Comment Review of Relevant I have reviewed the following items gavin (where applicable) has been applied. Labs Laboratory Tests Test 03/16/18 23:58 03/17/18 00:23 03/17/18 00:26 03/17/18 04:45 Glucose (Fingerstick) 215 mg/dL (70-99) White Blood Count 9.8 x10^3/uL (4.0-11.0) Red Blood Count 5.29 x10^6/uL (4.30-5.70) Hemoglobin 15.5 g/dL (13.0-17.5) Hematocrit 45.2 % (39.0-53.0) Mean Corpuscular Volume 86 fL (79-100) Mean Corpuscular Hemoglobin 29 pg (25-35) Mean Corpuscular Hemoglobin Concent 34 g/dL (31-37) Red Cell Distribution Width 14.1 % (11.5-14.5) Platelet Count 260 x10^3/uL (140-400) Neutrophils (%) (Auto) 73 % (31-73) Lymphocytes (%) (Auto) 21 % (24-48) Monocytes (%) (Auto) 5 % (0-9) Eosinophils (%) (Auto) 1 % (0-3) Basophils (%) (Auto) 1 % (0-3) Neutrophils # (Auto) 7.1 x10^3uL (1.8-7.7) Lymphocytes # (Auto) 2.1 x10^3/uL (1.0-4.8) Monocytes # (Auto) 0.5 x10^3/uL (0.0-1.1) Eosinophils # (Auto) 0.1 x10^3/uL (0.0-0.7) Basophils # (Auto) 0.1 x10^3/uL (0.0-0.2) Sodium Level 140 mmol/L (136-145) Potassium Level 3.6 mmol/L (3.5-5.1) Chloride Level 104 mmol/L (98-107) Carbon Dioxide Level 27 mmol/L (21-32) Anion Gap 9 (6-14) Blood Urea Nitrogen 25 mg/dL (8-26) Creatinine 1.7 mg/dL (0.7-1.3) Estimated GFR (Cockcroft-Gault) 42.7 Glucose Level 211 mg/dL (70-99) Hemoglobin A1c 7.6 % (4.8-5.6) Calcium Level 8.9 mg/dL (8.5-10.1) Total Bilirubin 0.6 mg/dL (0.2-1.0) Direct Bilirubin 0.2 mg/dL (0.0-0.2) Aspartate Amino Transf (AST/SGOT) 20 U/L (15-37) Alanine Aminotransferase (ALT/SGPT) 16 U/L (16-63) Alkaline Phosphatase 107 U/L (46-116) Troponin I Quantitative 0.049 ng/mL (0.000-0.055) 0.051 ng/mL (0.000-0.055) GV-Ilk-U-Type Natriuretic Peptide 61597 pg/mL (0-124) Total Protein 6.5 g/dL (6.4-8.2) Albumin 2.7 g/dL (3.4-5.0) Procalcitonin < 0.10 ng/mL (0.00-0.10) Lactic Acid Level 1.2 mmol/L (0.4-2.0) Triglycerides Level 182 mg/dL (0-150) Cholesterol Level 235 mg/dL (0-200) LDL Cholesterol, Calculated 168 mg/dL (0-100) VLDL Cholesterol, Calculated 36 mg/dL (0-40) Non-HDL Cholesterol Calculated 204 mg/dL (0-129) HDL Cholesterol 31 mg/dL (40-60) Cholesterol/HDL Ratio 7.6 Thyroid Stimulating Hormone (TSH) 0.923 uIU/mL (0.358-3.74) Test 03/17/18 07:41 03/17/18 08:05 03/17/18 08:45 03/17/18 11:38 Glucose (Fingerstick) 146 mg/dL (70-99) 170 mg/dL (70-99) Troponin I Quantitative 0.046 ng/mL (0.000-0.055) Urine Collection Type Unknown Urine Color Yellow Urine Clarity Clear Urine pH 5.5 Urine Specific Baring 1.015 Urine Protein >=300 mg/dL (NEG-TRACE) Urine Glucose (UA) 100 mg/dL (NEG) Urine Ketones (Stick) Negative mg/dL (NEG) Urine Blood Small (NEG) Urine Nitrite Negative (NEG) Urine Bilirubin Negative (NEG) Urine Urobilinogen Dipstick 0.2 mg/dL (0.2 mg/dL) Urine Leukocyte Esterase Negative (NEG) Urine RBC 1-2 /HPF (0-2) Urine WBC Occ /HPF (0-4) Urine Renal Epithelial Cells Occ /LPF Urine Bacteria Few /HPF (0-FEW) Urine Hyaline Casts Few /HPF Urine Mucus Slight /LPF Urine Opiates Screen Pos (NEG) Urine Methadone Screen Neg (NEG) Urine Barbiturates Neg (NEG) Urine Phencyclidine Screen Neg (NEG) Urine Amphetamine/Methamphetamine Neg (NEG) Urine Benzodiazepines Screen Neg (NEG) Urine Cocaine Screen Neg (NEG) Urine Cannabinoids Screen Neg (NEG) Urine Ethyl Alcohol Neg (NEG) Test 03/17/18 17:22 03/17/18 21:16 03/18/18 04:50 03/18/18 07:39 Glucose (Fingerstick) 90 mg/dL (70-99) 87 mg/dL (70-99) 81 mg/dL (70-99) White Blood Count 9.2 x10^3/uL (4.0-11.0) Red Blood Count 4.57 x10^6/uL (4.30-5.70) Hemoglobin 13.5 g/dL (13.0-17.5) Hematocrit 39.1 % (39.0-53.0) Mean Corpuscular Volume 85 fL (79-100) Mean Corpuscular Hemoglobin 29 pg (25-35) Mean Corpuscular Hemoglobin Concent 35 g/dL (31-37) Red Cell Distribution Width 14.5 % (11.5-14.5) Platelet Count 219 x10^3/uL (140-400) Neutrophils (%) (Auto) 66 % (31-73) Lymphocytes (%) (Auto) 22 % (24-48) Monocytes (%) (Auto) 10 % (0-9) Eosinophils (%) (Auto) 2 % (0-3) Basophils (%) (Auto) 1 % (0-3) Neutrophils # (Auto) 6.0 x10^3uL (1.8-7.7) Lymphocytes # (Auto) 2.0 x10^3/uL (1.0-4.8) Monocytes # (Auto) 0.9 x10^3/uL (0.0-1.1) Eosinophils # (Auto) 0.2 x10^3/uL (0.0-0.7) Basophils # (Auto) 0.1 x10^3/uL (0.0-0.2) Sodium Level 141 mmol/L (136-145) Potassium Level 3.3 mmol/L (3.5-5.1) Chloride Level 106 mmol/L (98-107) Carbon Dioxide Level 28 mmol/L (21-32) Anion Gap 7 (6-14) Blood Urea Nitrogen 28 mg/dL (8-26) Creatinine 2.1 mg/dL (0.7-1.3) Estimated GFR (Cockcroft-Gault) 33.5 Glucose Level 76 mg/dL (70-99) Calcium Level 8.5 mg/dL (8.5-10.1) Magnesium Level 1.8 mg/dL (1.8-2.4) Laboratory Tests Test 03/17/18 17:22 03/17/18 21:16 03/18/18 04:50 03/18/18 07:39 Glucose (Fingerstick) 90 mg/dL (70-99) 87 mg/dL (70-99) 81 mg/dL (70-99) White Blood Count 9.2 x10^3/uL (4.0-11.0) Red Blood Count 4.57 x10^6/uL (4.30-5.70) Hemoglobin 13.5 g/dL (13.0-17.5) Hematocrit 39.1 % (39.0-53.0) Mean Corpuscular Volume 85 fL (79-100) Mean Corpuscular Hemoglobin 29 pg (25-35) Mean Corpuscular Hemoglobin Concent 35 g/dL (31-37) Red Cell Distribution Width 14.5 % (11.5-14.5) Platelet Count 219 x10^3/uL (140-400) Neutrophils (%) (Auto) 66 % (31-73) Lymphocytes (%) (Auto) 22 % (24-48) Monocytes (%) (Auto) 10 % (0-9) Eosinophils (%) (Auto) 2 % (0-3) Basophils (%) (Auto) 1 % (0-3) Neutrophils # (Auto) 6.0 x10^3uL (1.8-7.7) Lymphocytes # (Auto) 2.0 x10^3/uL (1.0-4.8) Monocytes # (Auto) 0.9 x10^3/uL (0.0-1.1) Eosinophils # (Auto) 0.2 x10^3/uL (0.0-0.7) Basophils # (Auto) 0.1 x10^3/uL (0.0-0.2) Sodium Level 141 mmol/L (136-145) Potassium Level 3.3 mmol/L (3.5-5.1) Chloride Level 106 mmol/L (98-107) Carbon Dioxide Level 28 mmol/L (21-32) Anion Gap 7 (6-14) Blood Urea Nitrogen 28 mg/dL (8-26) Creatinine 2.1 mg/dL (0.7-1.3) Estimated GFR (Cockcroft-Gault) 33.5 Glucose Level 76 mg/dL (70-99) Calcium Level 8.5 mg/dL (8.5-10.1) Magnesium Level 1.8 mg/dL (1.8-2.4) Microbiology 03/17/18 Blood Culture - Preliminary, Resulted NO GROWTH AFTER 1 DAY Medications Current Medications Nitroglycerin (Nitro-Bid Oint) 1 inch 1X ONCE TP Last administered on at 00:51; Start 03/17/18 at 00:45; Stop 03/17/18 at 00:46; Status DC Furosemide (Lasix) 40 mg 1X ONCE IVP Last administered on 03/17/18at 01:54; Start 03/17/18 at 01:45; Stop 03/17/18 at 01:47; Status DC Morphine Sulfate (Morphine Sulfate) 6 mg 1X ONCE IV Last administered on 03/17at 01:54; Start 03/17/18 at 01:45; Stop 03/17/18 at 01:47; Status DC Acetaminophen (Tylenol) 1,000 mg 1X ONCE PO Last administered on 03/17/18at 01 :52; Start 03/17/18 at 01:45; Stop 03/17/18 at 01:47; Status DC Carvedilol (Coreg) 12.5 mg ONCE ONCE PO Last administered on 03/17/18at 02:04 ; Start 03/17/18 at 02:00; Stop 03/17/18 at 02:01; Status DC Ondansetron HCl (Zofran) 4 mg PRN Q8HRS PRN IV NAUSEA/VOMITING; Start at 02:00; Stop 03/17/18 at 08:51; Status DC Morphine Sulfate (Morphine Sulfate) 4 mg PRN Q2HR PRN IV PAIN Last administered on 03/17/18at 08:40; Start 03/17/18 at 02:00; Stop 03/18/18 at 02 :00; Status DC Acetaminophen (Tylenol) 650 mg PRN Q4HRS PRN PO FEVER Last administered on at 08:39; Start 03/17/18 at 02:00; Stop 03/18/18 at 02:00; Status DC Nitroglycerin/ Dextrose 250 ml @ 0 mls/hr 1X ONCE IV Last administered on at 02:27; Start 03/17/18 at 02:30; Stop 03/17/18 at 08:52; Status DC Influenza Virus Vaccine (Afluria Trivalent 5080-4015 Syringe) 0.5 ml ONCE ONCE VAX IM ; Start 03/17/18 at 09:00; Stop 03/17/18 at 09:01; Status DC Ondansetron HCl (Zofran) 4 mg PRN Q6HRS PRN IV NAUSEA/VOMITING; Start at 09:00 Labetalol HCl (Normodyne Iv Push) 20 mg PRN Q2HR PRN IVP HYPERTENSION, SEE COMMENTS; Start 03/17/18 at 09:00 Carvedilol (Coreg) 12.5 mg BIDWMEALS PO ; Start 03/17/18 at 09:00; Stop at 15:11; Status DC Atorvastatin Calcium (Lipitor) 40 mg QHS PO Last administered on 03/17/18at 21: 11; Start 03/17/18 at 21:00 Atorvastatin Calcium (Lipitor) 80 mg QHS PO ; Start 03/17/18 at 21:00; Status UNV Aspirin (Ecotrin) 81 mg DAILYWBKFT PO Last administered on 03/18/18at 08:34; Start 03/17/18 at 09:00 Clopidogrel Bisulfate (Plavix) 75 mg DAILYWBKFT PO Last administered on at 08:33; Start 03/17/18 at 09:15 Lisinopril (Prinivil) 20 mg DAILY PO Last administered on 03/18/18at 08:34; Start 03/17/18 at 09:00 Cyclobenzaprine HCl (Flexeril) 10 mg TID PO Last administered on 03/17/18at 21: 10; Start 03/17/18 at 09:00 Isosorbide Mononitrate (Imdur) 30 mg DAILY PO Last administered on 03/17/18at 10:06; Start 03/17/18 at 09:00; Stop 03/17/18 at 15:11; Status DC Isosorbide Mononitrate (Imdur) 60 mg DAILY PO ; Start 03/17/18 at 09:00; Status UNV Morphine Sulfate (Ms Contin) 30 mg BID PO Last administered on 03/17/18at 21:11 ; Start 03/17/18 at 09:00 Temazepam (Restoril) 30 mg HS PRN PO INSOMNIA; Start 03/17/18 at 09:00 Amitriptyline HCl (Elavil) 100 mg QHS PO Last administered on 03/17/18at 21:12 ; Start 03/17/18 at 21:00 Non-Formulary Medication (Carvedilol ) 25 mg BIDWMEALS PO ; Start 03/17/18 at 17:00; Status UNV Gabapentin (Neurontin) 900 mg TID PO Last administered on 03/18/18at 08:33; Start 03/17/18 at 09:30 Glimepiride (Amaryl) 4 mg BIDWMEALS PO Last administered on 03/18/18at 08:34; Start 03/17/18 at 09:30 Acetaminophen/ Hydrocodone Bitart (Lortab 10/325) 2 tab PRN Q4HRS PRN PO SEVERE PAIN; Start 03/17/18 at 09:15 Acetaminophen/ Hydrocodone Bitart (Lortab 10/325) 1 tab PRN Q6HRS PRN PO MODERATE PAIN Last administered on 03/17/18at 10:05; Start 03/17/18 at 09:15 Ropinirole HCl (Requip) 2 mg QHS PO Last administered on 03/17/18at 21:11; Start 03/17/18 at 21:00 Linagliptin (Tradjenta) 5 mg DAILY PO Last administered on 03/18/18at 08:33; Start 03/17/18 at 09:00 Trazodone HCl (Desyrel) 150 mg QHS PO Last administered on 03/17/18at 21:12; Start 03/17/18 at 21:00 Non-Formulary Medication ([Aspirin] ) 325 mg DAILYWBKFT PO ; Start 03/18/18 at 08:00; Status UNV Insulin Human Lispro (HumaLOG) 0-9 UNITS TIDWMEALS SQ ; Start 03/17/18 at 12:00 Dextrose (Dextrose 50%-Water Syringe) 12.5 gm PRN Q15MIN PRN IV SEE COMMENTS; Start 03/17/18 at 09:00 Furosemide (Lasix) 40 mg BID92 IVP Last administered on 03/18/18at 08:32; Start 03/17/18 at 14:00 Carvedilol (Coreg) 25 mg BIDWMEALS PO Last administered on 03/18/18at 08:33; Start 03/17/18 at 17:00 Isosorbide Mononitrate (Imdur) 60 mg DAILY PO Last administered on 03/18/18at 08:34; Start 03/18/18 at 09:00 Isosorbide Mononitrate (Imdur) 30 mg 1X ONCE PO Last administered on at 17:25; Start 03/17/18 at 15:15; Stop 03/17/18 at 15:16; Status DC Active Scripts Active Isosorbide Mononitrate Er (Isosorbide Mononitrate) 30 Mg Tab.er.24h 60 Mg PO DAILY Atorvastatin Calcium 40 Mg Tablet 80 Mg PO QHS Plavix (Clopidogrel Bisulfate) 75 Mg Tablet 75 Mg PO DAILYWBKFT [Aspirin] 325 MG Tablet 325 Mg PO DAILYWBKFT Lortab 10-325 mg Tablet (Hydrocodone/Acetaminophen) 1 Each Tablet 1 Tab PO PRN Q6HRS PRN Januvia (Sitagliptin Phosphate) 100 Mg Tablet 1 Tab PO DAILY Glimepiride 4 Mg Tablet 1 Tab PO BID Reported Ms Contin (Morphine Sulfate) 30 Mg Tablet.er 1 Tab PO BID Temazepam 30 Mg Capsule 30 Mg PO HS PRN Carvedilol 25 Mg Tablet 25 Mg PO BIDWMEALS Cyclobenzaprine Hcl 10 Mg Tablet 1 Tab PO TID Tribenzor 40-5-12.5 Mg Tablet (Olmesartan/Amlodipin/Hcthiazid) 1 Each Tablet 1 Each PO TID Ropinirole Hcl 2 Mg Tablet 2 Mg PO QHS Neurontin (Gabapentin) 300 Mg Capsule 3 Cap PO TID Hydrocodone-Apap 10-300 (Hydrocodone Bit/Acetaminophen) 1 Each Tablet 2 Tab PO Q4HRS PRN Amitriptyline Hcl 100 Mg Tablet 1 Tab PO QHS Trazodone Hcl 150 Mg Tablet 1 Tab PO QHS Vitals/I & O Vital Sign - Last 24 Hours 03/17/18 03/17/18 03/17/18 03/17/18 15:17 17:23 17:25 19:30 Temp 97.5 98.1 97.5 98.1 Pulse 86 83 83 87 Resp 12 19 B/P (MAP) 147/86 (106) 130/98 (109) Pulse Ox 97 94 O2 Delivery Room Air Room Air 03/17/18 03/17/18 03/17/18 03/18/18 19:45 21:11 23:05 03:10 Temp 97.7 97.4 97.7 97.4 Pulse 80 81 Resp 18 16 B/P (MAP) 131/77 (95) 128/74 (92) Pulse Ox 95 96 O2 Delivery Room Air Room Air Room Air Room Air 03/18/18 03/18/18 03/18/18 03/18/18 07:44 08:00 08:33 08:34 Temp 97.5 97.5 Pulse 89 89 89 Resp 14 B/P (MAP) 155/104 (121) 155/104 155/104 Pulse Ox 99 O2 Delivery Room Air Room Air 03/18/18 03/18/18 08:34 11:08 Temp 97.4 97.4 Pulse 89 82 Resp 12 B/P (MAP) 155/104 92/68 (76) Pulse Ox 99 O2 Delivery Room Air Intake and Output 03/17/18 03/17/18 03/18/18 15:00 23:00 07:00 Intake Total 800 ml 1000 ml Output Total 450 ml 650 ml Balance -450 ml 150 ml 1000 ml VERITO TINAJERO MD Mar 18, 2018 12:41
[2018-03-18] MEDS ORDERED: traZODone 100 MG TABLET. PO PRN (12:45)
--- NOTE | 2018-03-18 13:08 | PDOC ---
CARDIO Progress Notes Date and Time Date of Service 03/18/2018 Time of Evaluation 1240 Subjective Subjective: No Chest Pain, No shortness of breath, No Palpitations Vitals Vitals Vital Signs Date Time Temp Pulse Resp B/P (MAP) Pulse Ox O2 Delivery O2 Flow Rate FiO2 03/18/18 11:08 97.4 82 12 92/68 (76) 99 Room Air 97.4 Weight Weight [ ] Input and Output Intake and Output Intake and Output 03/18/18 07:00 Intake Total 1800 ml Output Total 1100 ml Balance 700 ml Intake Oral 1800 ml Output Urine Total 1100 ml Laboratory Labs Laboratory Tests Test 03/17/18 17:22 03/17/18 21:16 03/18/18 04:50 03/18/18 07:39 Glucose (Fingerstick) 90 mg/dL (70-99) 87 mg/dL (70-99) 81 mg/dL (70-99) White Blood Count 9.2 x10^3/uL (4.0-11.0) Red Blood Count 4.57 x10^6/uL (4.30-5.70) Hemoglobin 13.5 g/dL (13.0-17.5) Hematocrit 39.1 % (39.0-53.0) Mean Corpuscular Volume 85 fL (79-100) Mean Corpuscular Hemoglobin 29 pg (25-35) Mean Corpuscular Hemoglobin Concent 35 g/dL (31-37) Red Cell Distribution Width 14.5 % (11.5-14.5) Platelet Count 219 x10^3/uL (140-400) Neutrophils (%) (Auto) 66 % (31-73) Lymphocytes (%) (Auto) 22 % (24-48) Monocytes (%) (Auto) 10 % (0-9) Eosinophils (%) (Auto) 2 % (0-3) Basophils (%) (Auto) 1 % (0-3) Neutrophils # (Auto) 6.0 x10^3uL (1.8-7.7) Lymphocytes # (Auto) 2.0 x10^3/uL (1.0-4.8) Monocytes # (Auto) 0.9 x10^3/uL (0.0-1.1) Eosinophils # (Auto) 0.2 x10^3/uL (0.0-0.7) Basophils # (Auto) 0.1 x10^3/uL (0.0-0.2) Sodium Level 141 mmol/L (136-145) Potassium Level 3.3 mmol/L (3.5-5.1) Chloride Level 106 mmol/L (98-107) Carbon Dioxide Level 28 mmol/L (21-32) Anion Gap 7 (6-14) Blood Urea Nitrogen 28 mg/dL (8-26) Creatinine 2.1 mg/dL (0.7-1.3) Estimated GFR (Cockcroft-Gault) 33.5 Glucose Level 76 mg/dL (70-99) Calcium Level 8.5 mg/dL (8.5-10.1) Magnesium Level 1.8 mg/dL (1.8-2.4) Test 03/18/18 12:26 Glucose (Fingerstick) 119 mg/dL (70-99) Microbiology Micro Microbiology 03/17/18 Blood Culture - Preliminary, Resulted NO GROWTH AFTER 1 DAY Physical Exam HEENT: Neck Supple W Full Motion Chest: Symmetric LUNGS: Clear to Auscultation Heart: S1S2, RRR (SR) Abdomen: Soft N/T Extremities: No Edema, No Calf Tenderness Neurology: alert, oriented, follow commands Assessment Assessment 1. Acute on chronic diastolic/systolic CHF: due to uncontrolled HTN precipitated by noncompliance 2. Chest pain: pressure suspect mainly to high BP. Trops nml. EKG SR with LVH/ LV strain, no acute changes. 3. Malignant HTN; improved 4. LEATHA on CKD3: nephrology following 5. DM2/HLP: not on goal 6. CAD: PCI/BMS to LAD/RCA, clinically stable. 7. Severe cardiomyopathy: combined NICM/ICM. EF 15-20% 8. Nontraumatic mechanical fall: 4 days ago. missed a step. 9. Noncompliance: due to financial constraints. Recommendations 1. He has a known hx of cardiomyopathy improving his EF to 50% after med compliance but now down to 20% mainly due to noncompliance. I had a significant discussion with him in regards to this as well as his daughter being present and stressed the importance of treatment compliance. With his financial constraints he will not be able to afford a lifevest and at this time is not willing to wear it. Will optimize his medications and he would be a good candidate for [employer] with assistance but again he needs to be compliant. Will reeval this as an outpt pending compliance. 2. Continue lasix therapy, DAPT and med optimization. Dietitian consult. 3. senior product manager and SS referral for outpt outreach clinic and help with disability application. 4. Daily wt. 2L FR. GABRIEL CHOPRA APRN Mar 18, 2018 13:08
[2018-03-18] MEDS ORDERED: POTASSIUM CHLORIDE 20 MEQ TABLET.ER. PO ONE (13:30)
[2018-03-18] MEDS: HYDROcodone/APAP 10/325 1 TAB TABLET PO PRN (14:29)
[2018-03-18 14:42] VITALS: BP 111/84
[2018-03-18] MEDS: FUROSEMIDE 40 MG TABLET. PO SCH (17:45)
[2018-03-18 19:30] VITALS: BP 121/81
[2018-03-18] MEDS: ATORVASTATIN CALCIUM 40 MG TABLET. PO SCH (20:31)
[2018-03-18] MEDS: AMITRIPTYLINE HCL 50 MG TABLET PO SCH (20:31)
[2018-03-18] MEDS: rOPINIRole 1 MG TABLET. PO SCH (20:31)
[2018-03-18 23:05] VITALS: BP 95/70
[2018-03-19 03:30] VITALS: BP 125/95
[2018-03-19] MEDS: HYDROcodone/APAP 10/325 1 TAB TABLET PO PRN ×3 (05:43→21:15)
[2018-03-19 06:09] LABS: CALCIUM 8.7 mg/dL (8.5-10.1); CREATININE 2.1 mg/dL (0.7-1.3); GFR 33.5; POTASSIUM 3.6 mmol/L (3.5-5.1)
[2018-03-19 07:00] VITALS: BP 137/92
[2018-03-19] MEDS: INSULIN LISPRO 300 UNITS/3 ML INSULN.PEN. SQ SCH ×3 (08:00→17:00)
[2018-03-19] MEDS: ASPIRIN ENTERIC COATED 81 MG TABLET.DR. PO SCH (08:29)
[2018-03-19] MEDS: GLIMEPIRIDE 2 MG TABLET. PO SCH ×2 (08:29→18:00)
[2018-03-19] MEDS: LISINOPRIL 20 MG TABLET PO SCH (08:30)
[2018-03-19] MEDS: CLOPIDOGREL BISULFATE 75 MG TABLET PO SCH (08:30)
[2018-03-19] MEDS: CYCLOBENZAPRINE 10 MG TABLET. PO SCH ×3 (08:30→21:14)
[2018-03-19] MEDS: FUROSEMIDE 40 MG TABLET. PO SCH ×2 (08:30→18:00)
[2018-03-19] MEDS: LINAGLIPTIN 5 MG TABLET PO SCH (08:30)
[2018-03-19] MEDS: GABAPENTIN 300 MG CAPSULE. PO SCH ×3 (08:30→21:14)
[2018-03-19] MEDS: ISOSORBIDE MONONITRATE ER 30 MG TAB.ER.24H PO SCH (08:31)
[2018-03-19] MEDS: CARVEDILOL 12.5 MG TABLET. PO SCH ×2 (08:31→18:00)
--- NOTE | 2018-03-19 12:12 | PDOC ---
Renal-Progress Notes Subjective Notes Notes NO NEW COMPLAINTS History of Present Illness Hx of present illness STABLE Vitals Vitals Vital Signs Date Time Temp Pulse Resp B/P (MAP) Pulse Ox O2 Delivery O2 Flow Rate FiO2 03/19/18 08:31 90 137/92 03/19/18 08:00 Room Air 03/19/18 07:24 97 03/19/18 07:00 97.9 18 97.9 Weight Weight [ ] I.O. Intake and Output Intake and Output 03/19/18 07:00 Intake Total 1560 ml Output Total 1550 ml Balance 10 ml Intake Oral 1560 ml Output Urine Total 1550 ml Labs Labs Laboratory Tests Test 03/18/18 12:26 03/18/18 17:00 03/18/18 20:29 03/19/18 05:30 Glucose (Fingerstick) 119 mg/dL (70-99) 81 mg/dL (70-99) 144 mg/dL (70-99) Sodium Level 138 mmol/L (136-145) Potassium Level 3.6 mmol/L (3.5-5.1) Chloride Level 103 mmol/L (98-107) Carbon Dioxide Level 27 mmol/L (21-32) Anion Gap 8 (6-14) Blood Urea Nitrogen 34 mg/dL (8-26) Creatinine 2.1 mg/dL (0.7-1.3) Estimated GFR (Cockcroft-Gault) 33.5 Glucose Level 92 mg/dL (70-99) Calcium Level 8.7 mg/dL (8.5-10.1) Magnesium Level 2.0 mg/dL (1.8-2.4) Test 03/19/18 07:46 03/19/18 11:47 Glucose (Fingerstick) 123 mg/dL (70-99) 181 mg/dL (70-99) Micro Micro Microbiology 03/17/18 Blood Culture - Preliminary, Resulted NO GROWTH AFTER 2 DAYS Review of Systems Constitutional: yes: alert, oriented Ears/Nose/Throat: Yes: no symptom reported Eyes: Yes: no symptom reported Pulmonary: Yes no symptom reported Cardiovascular: Yes no symptom reported Gastrointestional: Yes: no symptom reported Genitourinary: Yes: no symptom reported Musculoskeletal: Yes: no symptom reported Skin: Yes no symptom reported Psychiatric/Neurological: Yes: no symptom reported Endocrine: Yes: no symptom reported Physical Exam General Appearance: no apparent distress Skin: warm Respiratory: decreased breath sounds Heart: S1S2 Abdomen: soft, bowel sounds present Genitourinary: bladder flat Extremities: pulses present, no edema Neurology: alert, oriented, follow commands Musculoskeletal: Osteoarthritis, Other Assessment Assessment IMP CKD STAGE 3-CR OF 2.1-NEW BASELINE-STABLE SEVERE CM PLAN CONT DIURETICS OK TO D/C FROM RENAL STANDPOINT HAVE ASKED HIM TO F/U WITH US IN OFFICE PAT GARRISNO MD Mar 19, 2018 12:12
[2018-03-19] MEDS ORDERED: ISOS30TA4 PO (12:23)
[2018-03-19] MEDS ORDERED: LISI-130 PO (12:23)
[2018-03-19] MEDS ORDERED: FURO40TA4 PO (12:23)
[2018-03-19] MEDS ORDERED: CYCL10TA2 PO (12:23)
[2018-03-19] MEDS ORDERED: CARV12.52 PO (12:23)
[2018-03-19] MEDS ORDERED: GABA300C8 PO (12:23)
[2018-03-19] MEDS ORDERED: GLIM4TAB2 PO (12:23)
[2018-03-19] MEDS ORDERED: HYDR-2766 PO (12:23)
[2018-03-19] MEDS ORDERED: ATOR40TA59 PO (12:23)
[2018-03-19] MEDS ORDERED: ASPI-612 PO (12:23)
[2018-03-19] MEDS ORDERED: TRAZ-85 PO (12:25)
--- NOTE | 2018-03-19 12:30 | PDOC3 ---
Discharge Summary Visit Information Date of Admission: Mar 17, 2018 Date of Discharge: Mar 19, 2018 Admitting Diagnosis Comment: severe systolic CM with EF 10-15% by echo (03/17/18) - needs life vest and defib - to ff up cards 3 mos and prove compliance first CAD, hypertension, diabetes on insulin AK I on CK D possibly Hypertensive urgency POA Mixed dyslipidemia NArc dependence Chronic pain MSK, issues etc Final Diagnosis Problems Medical Problems: (1) Dyspnea Status: Acute (2) Elevated serum creatinine Status: Acute Brief Hospital Course Allergies Allergies Coded Allergies Type Severity Reaction Last Updated Verified No Known Drug Allergies 07/22/14 No Vital Signs Vital Signs Date Time Temp Pulse Resp B/P (MAP) Pulse Ox O2 Delivery O2 Flow Rate FiO2 03/19/18 08:31 90 137/92 03/19/18 08:00 Room Air 03/19/18 07:24 97 03/19/18 07:00 97.9 18 97.9 Lab Results Laboratory Tests Test 03/17/18 17:22 03/17/18 21:16 03/18/18 04:50 03/18/18 07:39 Glucose (Fingerstick) 90 mg/dL (70-99) 87 mg/dL (70-99) 81 mg/dL (70-99) White Blood Count 9.2 x10^3/uL (4.0-11.0) Red Blood Count 4.57 x10^6/uL (4.30-5.70) Hemoglobin 13.5 g/dL (13.0-17.5) Hematocrit 39.1 % (39.0-53.0) Mean Corpuscular Volume 85 fL (79-100) Mean Corpuscular Hemoglobin 29 pg (25-35) Mean Corpuscular Hemoglobin Concent 35 g/dL (31-37) Red Cell Distribution Width 14.5 % (11.5-14.5) Platelet Count 219 x10^3/uL (140-400) Neutrophils (%) (Auto) 66 % (31-73) Lymphocytes (%) (Auto) 22 % (24-48) Monocytes (%) (Auto) 10 % (0-9) Eosinophils (%) (Auto) 2 % (0-3) Basophils (%) (Auto) 1 % (0-3) Neutrophils # (Auto) 6.0 x10^3uL (1.8-7.7) Lymphocytes # (Auto) 2.0 x10^3/uL (1.0-4.8) Monocytes # (Auto) 0.9 x10^3/uL (0.0-1.1) Eosinophils # (Auto) 0.2 x10^3/uL (0.0-0.7) Basophils # (Auto) 0.1 x10^3/uL (0.0-0.2) Sodium Level 141 mmol/L (136-145) Potassium Level 3.3 mmol/L (3.5-5.1) Chloride Level 106 mmol/L (98-107) Carbon Dioxide Level 28 mmol/L (21-32) Anion Gap 7 (6-14) Blood Urea Nitrogen 28 mg/dL (8-26) Creatinine 2.1 mg/dL (0.7-1.3) Estimated GFR (Cockcroft-Gault) 33.5 Glucose Level 76 mg/dL (70-99) Calcium Level 8.5 mg/dL (8.5-10.1) Magnesium Level 1.8 mg/dL (1.8-2.4) Test 03/18/18 12:26 03/18/18 17:00 03/18/18 20:29 03/19/18 05:30 Glucose (Fingerstick) 119 mg/dL (70-99) 81 mg/dL (70-99) 144 mg/dL (70-99) Sodium Level 138 mmol/L (136-145) Potassium Level 3.6 mmol/L (3.5-5.1) Chloride Level 103 mmol/L (98-107) Carbon Dioxide Level 27 mmol/L (21-32) Anion Gap 8 (6-14) Blood Urea Nitrogen 34 mg/dL (8-26) Creatinine 2.1 mg/dL (0.7-1.3) Estimated GFR (Cockcroft-Gault) 33.5 Glucose Level 92 mg/dL (70-99) Calcium Level 8.7 mg/dL (8.5-10.1) Magnesium Level 2.0 mg/dL (1.8-2.4) Test 03/19/18 07:46 03/19/18 11:47 Glucose (Fingerstick) 123 mg/dL (70-99) 181 mg/dL (70-99) Laboratory Tests Test 03/18/18 17:00 03/18/18 20:29 03/19/18 05:30 03/19/18 07:46 Glucose (Fingerstick) 81 mg/dL (70-99) 144 mg/dL (70-99) 123 mg/dL (70-99) Sodium Level 138 mmol/L (136-145) Potassium Level 3.6 mmol/L (3.5-5.1) Chloride Level 103 mmol/L (98-107) Carbon Dioxide Level 27 mmol/L (21-32) Anion Gap 8 (6-14) Blood Urea Nitrogen 34 mg/dL (8-26) Creatinine 2.1 mg/dL (0.7-1.3) Estimated GFR (Cockcroft-Gault) 33.5 Glucose Level 92 mg/dL (70-99) Calcium Level 8.7 mg/dL (8.5-10.1) Magnesium Level 2.0 mg/dL (1.8-2.4) Test 03/19/18 11:47 Glucose (Fingerstick) 181 mg/dL (70-99) Brief Hospital Course Mr. Dejesus is a 52 old white male who unfortunately is narcotic dependent from acute and chronic pain issues. He will try to spend money on narcotics rather than cardiac meds. Admitted to not taking home medications for 3 months now. Comes in because of severe SOA a few feet. EF is 10-15% on echocardiogram. We treated for severe CM with diuretics, pre load and after load reduction agents. Started on the right cardiac medications including Lasix, beta sean MEAGHAN inhibitor preload and afterload reduction. Creatinine 1.6-2.1, comanage with renal and cardiology. Essentially needs a LifeVest and eventually a defibrillator but compliance is an issue. Family is also frustrated about his chronic narcotic dependence. Some drowsiness that I had to stop many of the narcotic medications. In any case we have come up with a regimen, I have Rx'd all cardiac meds and some pain medicines which is way down or decreased in dose and frequency in terms of what he used to take. Now he is more wide awake. After heavy education counseling he agreed to have the LifeVest. He initially did not want a LifeVest. Significant time discussing his decision, prognosis, compliance emphasized today. Time discharging 35 minutes cumulative. Procedures performed echocardiogram Consults performed renal, cardiology Discharge disposition home, he does not have any insurance Follow-up cardiology 3 months - prove compliance dw RN Marian Discharge Information Condition at Discharge: Improved, Stable Disposition/Orders: D/C to Home Scheduled Amitriptyline Hcl (Amitriptyline Hcl) 100 Mg Tablet, 1 TAB PO QHS, #30 Ref 1 ( Reported) Entered as Reported by: JV FRANKS on 07/22/142025 Last Action: Converted on 03/17/18851 by VERITO TINAJERO Aspirin (Aspirin Ec) 81 Mg Tablet.dr, 81 MG PO DAILYWBKFT for 60 Days, #60 Prescribed by: VERITO TINAJERO on 03/19/18 1223 Atorvastatin Calcium (Atorvastatin Calcium) 40 Mg Tablet, 80 MG PO QHS, #30 Prescribed by: LOIDA MCCULLOUGH MD on 04/23/17 1623 Last Action: Continued on 03/17/18851 by VERITO TINAJERO Atorvastatin Calcium (Atorvastatin Calcium) 40 Mg Tablet, 40 MG PO QHS for 30 Days, #30 Prescribed by: VERITO TINAJERO on 03/19/18 1223 Carvedilol (Carvedilol) 25 Mg Tablet, 25 MG PO BIDWMEALS, (Reported) Entered as Reported by: YANN ETIENNE on 02/28/152142 Last Action: Converted on 03/17/18851 by VERITO TINAJERO Carvedilol (Carvedilol) 12.5 Mg Tablet, 25 MG PO BIDWMEALS, #60 Prescribed by: VERITO TINAJERO on 03/19/18 1223 Clopidogrel Bisulfate (Plavix) 75 Mg Tablet, 75 MG PO DAILYWBKFT, #30 Ref 2 Prescribed by: ROSEANNE RAHMAN on 03/04/15 1505 Last Action: Continued on 03/17/18851 by VERITO TINAJERO Cyclobenzaprine Hcl (Cyclobenzaprine Hcl) 10 Mg Tablet, 1 TAB PO TID, #30 Prescribed by: VERITO TINAJERO on 03/19/18 1223 Furosemide (Furosemide) 40 Mg Tablet, 40 MG PO BID94, #60 Prescribed by: VERITO TINAJERO on 03/19/18 1223 Gabapentin (Neurontin) 300 Mg Capsule, 3 CAP PO TID, #90 Ref 3 (Reported) Entered as Reported by: JV FRANKS on 07/22/142025 Last Action: Converted on 03/17/18851 by VERITO TINAJERO Gabapentin (Gabapentin) 300 Mg Capsule, 600 MG PO TID, #60 Prescribed by: VERITO TINAJERO on 03/19/18 1223 Glimepiride (Glimepiride) 4 Mg Tablet, 1 TAB PO BID, #60 Ref 1 Prescribed by: VERITO TINAJERO on 03/19/18 1223 Isosorbide Mononitrate (Isosorbide Mononitrate Er) 30 Mg Tab.er.24h, 60 MG PO DAILY, #30 Prescribed by: LOIDA MCCULLOUGH MD on 04/23/17 162 Last Action: Continued on 03/17/18851 by VERITO TINAJERO Isosorbide Mononitrate (Isosorbide Mononitrate Er) 30 Mg Tab.er.24h, 60 MG PO DAILY for 30 Days, #60 Prescribed by: VERITO TINAJERO on 03/19/18 1223 Lisinopril (Lisinopril) 40 Mg Tablet, 20 MG PO DAILY for 30 Days, #15 Prescribed by: VERITO TINAJERO on 03/19/18 1223 Morphine Sulfate Er (Ms Contin) 30 Mg Tablet.er, 1 TAB PO BID, #60 (Reported) Entered as Reported by: Marian Emery on 03/04/15 1532 Last Action: Continued on 03/17/18851 by VERITO ITNAJERO Olmesartan/Amlodipin/Hcthiazid (Tribenzor 40-5-12.5 Mg Tablet) 1 Each Tablet, 1 EACH PO TID, (Reported) Entered as Reported by: JV FRANKS on 07/22/142025 Last Action: HELD on 03/17/18851 by VERITO TINAJERO Ropinirole Hcl (Ropinirole Hcl) 2 Mg Tablet, 2 MG PO QHS, (Reported) Entered as Reported by: JV FRANKS on 07/22/142025 Last Action: Converted on 03/17/18851 by VERITO TINAJERO Sitagliptin Phosphate (Januvia) 100 Mg Tablet, 1 TAB PO DAILY, #30 Ref 5 Prescribed by: ROSEANNE RAHMAN on 11/18/141548 Last Action: Converted on 03/17/18851 by VERITO TINAJERO Trazodone Hcl (Trazodone Hcl) 150 Mg Tablet, 1 TAB PO QHS, #30 Ref 1 (Reported) Entered as Reported by: JV FRANKS on 07/22/142025 Last Action: Converted on 03/17/18851 by VERITO TINAJERO Trazodone Hcl (Trazodone Hcl) 50 Mg Tablet, 1 TAB PO QHS, #14 Ref 1 Prescribed by: VERITO TINAJERO on 03/19/18 1225 [Aspirin] 325 MG TABLET, 325 MG PO DAILYWBKFT, #30 Ref 2 Prescribed by: ROSEANNE RAHMAN on 03/04/151504 Last Action: Converted on 03/17/18851 by VERITO TINAJERO Scheduled PRN Hydrocodone Bit/Acetaminophen (Hydrocodone-Apap 10-300) 1 Each Tablet, 2 TAB PO Q4HRS PRN for PAIN, Ref 0 (Reported) Entered as Reported by: JV FRANKS on 07/22/142025 Last Action: Converted on 03/17/18851 by VERITO TINAJERO Hydrocodone Bit/Acetaminophen (Hydrocodone-Apap 10-325 ) 1 Each Tablet, 1 TAB PO PRN Q6HRS PRN for MODERATE PAIN, #30 Prescribed by: VERITO TINAJERO on 03/19/18 1223 Hydrocodone/Acetaminophen (Lortab 10-325 mg Tablet) 1 Each Tablet, 1 TAB PO PRN Q6HRS PRN for PAIN, #35 Ref 0 Prescribed by: ROSEANNE RAHMAN on 11/18/141548 Last Action: Converted on 03/17/18851 by VERITO TINAJERO Temazepam (Temazepam) 30 Mg Capsule, 30 MG PO HS PRN for INSOMNIA, (Reported) Entered as Reported by: YANN ETIENNE on 02/28/152142 Last Action: Continued on 03/17/18851 by VERITO KINNEY MD Mar 19, 2018 12:30
[2018-03-19 19:26] VITALS: BP 128/82
[2018-03-19] MEDS: rOPINIRole 1 MG TABLET. PO SCH (21:13)
[2018-03-19] MEDS: ATORVASTATIN CALCIUM 40 MG TABLET. PO SCH (21:14)
[2018-03-19] MEDS: AMITRIPTYLINE HCL 50 MG TABLET PO SCH (21:14)
[2018-03-19 23:21] VITALS: BP 116/96
[2018-03-20 03:51] VITALS: BP 121/74
[2018-03-20 07:00] VITALS: BP 149/109
[2018-03-20] MEDS: INSULIN LISPRO 300 UNITS/3 ML INSULN.PEN. SQ SCH ×2 (08:00→12:00)
[2018-03-20] MEDS: GABAPENTIN 300 MG CAPSULE. PO SCH (09:05)
[2018-03-20] MEDS: ASPIRIN ENTERIC COATED 81 MG TABLET.DR. PO SCH (09:05)
[2018-03-20] MEDS: GLIMEPIRIDE 2 MG TABLET. PO SCH (09:05)
[2018-03-20] MEDS: LISINOPRIL 20 MG TABLET PO SCH (09:06)
[2018-03-20] MEDS: CYCLOBENZAPRINE 10 MG TABLET. PO SCH (09:06)
[2018-03-20] MEDS: CARVEDILOL 12.5 MG TABLET. PO SCH (09:06)
[2018-03-20] MEDS: LINAGLIPTIN 5 MG TABLET PO SCH (09:07)
[2018-03-20] MEDS: CLOPIDOGREL BISULFATE 75 MG TABLET PO SCH (09:07)
[2018-03-20] MEDS: FUROSEMIDE 40 MG TABLET. PO SCH (09:07)
[2018-03-20] MEDS: ISOSORBIDE MONONITRATE ER 30 MG TAB.ER.24H PO SCH (09:08)
[2018-03-20] MEDS: HYDROcodone/APAP 10/325 1 TAB TABLET PO PRN (09:13)
--- NOTE | 2018-03-20 10:42 | PDOC ---
Provider Note Provider Note Pt did not DC yesterday as per family request 1 more day of therapy Patient requested some Xanax Rx on chart Patient will have LifeVest on today Compliance emphasized again No change in DC summary done yesterday Patient is to DC today 03/20/18 Patient seen and examined and counseled again Discussed with VERITO DENG MD Mar 20, 2018 10:42
[2018-03-20 11:00] VITALS: BP 117/81
== END 2018-03-20 15:08 | disposition home or self-care (01) | DRG 682 ==
LOC: ER 23:38 → 5 NORTH 03-17 01:30 → CVICU 03-17 02:51
PROVIDERS: ADMIT Internal Medicine; ATTEND Internal Medicine
DX: N17.9 Acute kidney failure, unspecified (principal); I50.43 Acute on chronic combined systolic (congestive) and diastolic (congestive) heart failure; I13.0 Hypertensive heart and chronic kidney disease with heart failure and stage 1 through stage 4 chronic kidney disease, or unspecified chronic kidney disease; F11.20 Opioid dependence, uncomplicated; I42.8 Other cardiomyopathies; M19.90 Unspecified osteoarthritis, unspecified site; I25.5 Ischemic cardiomyopathy; G25.81 Restless legs syndrome; I25.10 Atherosclerotic heart disease of native coronary artery without angina pectoris; K21.9 Gastro-esophageal reflux disease without esophagitis; F32.9 Major depressive disorder, single episode, unspecified; E11.22 Type 2 diabetes mellitus with diabetic chronic kidney disease; I16.0 Hypertensive urgency; E78.2 Mixed hyperlipidemia; N18.3 Chronic kidney disease, stage 3 (moderate); G47.33 Obstructive sleep apnea (adult) (pediatric); G89.4 Chronic pain syndrome; T50.2X5A Adverse effect of carbonic-anhydrase inhibitors, benzothiadiazides and other diuretics, initial encounter; Y92.89 Other specified places as the place of occurrence of the external cause; Z91.19 Patient's noncompliance with other medical treatment and regimen; Z87.01 Personal history of pneumonia (recurrent); Z95.5 Presence of coronary angioplasty implant and graft; Z79.4 Long term (current) use of insulin; Z82.49 Family history of ischemic heart disease and other diseases of the circulatory system; Z91.81 History of falling
CPT/HCPCS: 36415; 71045; 80048; 80061; 80076; 80307; 81001; 82962; 83036; 83605; 83735; 83880; 84145; 84443; 84484; 85025; 87040; 90471; 90756; 93005; 93306; 96365; 96375; J1815; J1940; J2270; J3490; 99285-25; G0479; Q2035

== ENCOUNTER 2019-02-10 18:01 | Inpatient (IN) | payer SELFPAY ==
[2019-02-10] VITALS (7 sets, daily range): BP systolic 121–164; BP diastolic 75–96
[~2019-02-10] VITALS: Ht 177.8 cm; Wt 90.7 kg
[~2019-02-10 18:01] MED LIST changes: +ASPI-612 PO; +CARV12.511 PO; +FURO40TA4 PO; -GABA-586 PO; +GABA300C18 PO; +HYDR-2769 PO; +LISI-130 PO; -TIZA4TAB PO; +TIZA4TAB2 PO; +TRAZ-118 PO
[2019-02-10] MEDS ORDERED: IV NORMAL SALINE 1000ML BAG 1,000 ML IV SCH (21:45)
[2019-02-10] MEDS ORDERED: amLODIPine BESYLATE 5 MG TABLET PO ONE (22:00)
[2019-02-10 22:32] LABS: CALCIUM 7.9 mg/dL (8.5-10.1); CREATININE 5.3 mg/dL (0.7-1.3); GFR 11.5; POTASSIUM 5.6 mmol/L (3.5-5.1)
[2019-02-10] MEDS: IV NORMAL SALINE 1000ML BAG 1,000 ML IV SCH (23:12)
[2019-02-11] VITALS (19 sets, daily range): BP systolic 116–177; BP diastolic 67–110
[2019-02-11] MEDS: HYDROcodone/APAP 10/325 1 TAB TABLET PO PRN ×3 (02:55→21:20)
[2019-02-11] MEDS: IV NORMAL SALINE 1000ML BAG 1,000 ML IV SCH (05:55)
[2019-02-11 07:17] LABS: CALCIUM 7.8 mg/dL (8.5-10.1); CREATININE 4.5 mg/dL (0.7-1.3); GFR 13.8; POTASSIUM 5.2 mmol/L (3.5-5.1)
[2019-02-11 07:31] LABS: BASO % 0 % (0-3); EOS # 0.2 x10^3/uL (0.0-0.7); EOS % 3 % (0-3); HEMATOCRIT 36.9 % (39.0-53.0); HEMOGLOBIN 12.1 g/dL (13.0-17.5); LYMPH # 0.9 x10^3/uL (1.0-4.8); LYMPH % 14 % (24-48); MEAN CORPUSCULAR HEMOGLOBIN 29 pg (25-35); MEAN CORPUSCULAR HGB CONC 33 g/dL (31-37); MEAN CORPUSCULAR VOLUME 89 fL (79-100); MONO # 0.7 x10^3/uL (0.0-1.1); MONO % 11 % (0-9); NEUT # 5.1 x10^3/uL (1.8-7.7); NEUT % 73 % (31-73); PLATELET COUNT 120 x10^3/uL (140-400); RED BLOOD COUNT 4.13 x10^6/uL (4.30-5.70)
[2019-02-11] MEDS ORDERED: FLU VAX QS 2019-20 (36MOS+)/PF 0.5 ML SYRINGE. VAX IM ONE (09:00)
[2019-02-11] MEDS ORDERED: amLODIPine BESYLATE 5 MG TABLET PO SCH (09:00)
[2019-02-11] MEDS ORDERED: TEMA30CA PO (10:43)
[2019-02-11] MEDS ORDERED: CYCL10TA2 PO (10:43)
[2019-02-11] MEDS ORDERED: SPIR25TA5 PO (10:43)
[2019-02-11] MEDS ORDERED: POTA20TA82 PO (10:43)
[2019-02-11] MEDS ORDERED: [UNRECOGNIZED DRUG - OTHER] PO (10:43)
--- NOTE | 2019-02-11 11:46 | RAD ---
RENAL COMPLETE BILATERAL History: Acute kidney injury. Comparison: None. Procedure: Transabdominal ultrasound images are obtained of the kidneys and bladder. Findings: Right kidney: measures 11.4 x 4.8 x 5.4 cm. Normal cortical echotexture. Corticomedullary differentiation is preserved. No hydronephrosis. No renal cyst. No solid renal mass or calculus. Left kidney: measures 12.0 x 4.5 x 5.7 cm. Normal cortical echotexture. Corticomedullary differentiation is preserved. No hydronephrosis. No renal cyst. No solid renal mass or calculus. Urinary bladder: Decompressed urinary bladder with Eldridge catheter in place. IMPRESSION: 1. Unremarkable renal ultrasound. 2. Decompressed urinary bladder. Electronically signed by: Rory Garcia DO (02/11/2019 11:43 AM) [id number]
--- NOTE | 2019-02-11 12:07 | PDOC2 ---
CARDIAC CONSULT DATE OF CONSULT Date of Consult DATE: 02/11/19 TIME: 11:19 REASON FOR CONSULT Reason for Consult: LEATHA/CHF/ICM REFERRING PHYSICIAN Referring Physician: Farhat SOURCE Source: Chart review, Patient HISTORY OF PRESENT ILLNESS HISTORY OF PRESENT ILLNESS This is a 53 yo male admitted initially at [facility] due to weakness. He was then transferred here for further treatment. 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 He has not been sleeping well lately helping his daughter deal with plumbing issues. Reports that he drinks about 2/3 gallon of water daily. He very seldom takes NSAIDs but takes about 6 tabs of vicodin a day and takes flexeril at night but denies any benzodiazepines. Denies any SOA, palpitations, chest pain. No frequent dizziness and no recent injury or falls. Verbalized that he has been complaint with his home medications including his lasix and lisinopril. PAST MEDICAL HISTORY Past Medical History Cardiovascular: CAD, CHF, HTN, Hyperlipidemia, Other (cardiomyopathy; LVEF 25% by echo 07/23/2014) Pulmonary: Other (PHYLLIS) CENTRAL NERVOUS SYSTEM: Other (RLS) GI: GERD Psych: Depression Musculoskeletal: Osteoarthritis, Other (chronic pain syndrome) Renal/: Chronic renal insuff Endocrine: Diabetes (2) Dermatology: Eczema PAST SURGICAL HISTORY Past Surgical History Tonsillectomy, Other (left ankle), PCI/BMS to LAD/RCA FAMILY HISTORY Family History Coronary Artery Disease (Brother in his 40s) SOCIAL HISTORY Social History Smoke: No ALCOHOL: none Drugs: None Lives: with Family CURRENT MEDICATIONS CURRENT MEDICATIONS Current Medications Medications (Trade) Dose Ordered Sig/Jerri Route PRN Reason Start Time Stop Time Status Last Admin Dose Admin Acetaminophen/ Hydrocodone Bitart (Lortab 10/325) 2 tab PRN Q6HRS PRN PO PAIN 02/10/19 22:00 02/11/19 02:55 Sodium Chloride 1,000 ml @ 150 mls/hr Q6H40M IV 02/10/19 23:00 02/11/19 05:55 ALLERGIES ALLERGIES: Coded Allergies: No Known Drug Allergies (Unverified , 07/22/14) ROS Review of System 14 point ROS evaluated with pertinent positives noted per HPI PHYSICAL EXAM General: Alert, Oriented X3, Cooperative, No acute distress HEENT: Atraumatic, Mucous membr. moist/pink Lungs: Other (diffuse rhonchi) Heart: Regular rate (SR with PVCs), Other (3/6 systolic murmur to LLS border) Abdomen: Soft, No tenderness Extremities: No cyanosis, Other (trace LE edema) Skin: No breakdown, No significant lesion Neuro: Normal speech, Sensation intact Psych/Mental Status: Mental status NL, Mood NL MUSCULOSKELETAL: Osteoarthritic changes both hands VITALS/I&O VITALS/I&O: Vital Signs Date Time Temp Pulse Resp B/P (MAP) Pulse Ox O2 Delivery O2 Flow Rate FiO2 02/11/19 10:00 84 22 155/100 (118) 98 Room Air 02/11/19 08:00 97.8 97.8 I & O 02/10/19 02/10/19 02/11/19 15:00 23:00 07:00 Intake Total 250 ml 450 ml Output Total 1050 ml 2550 ml Balance -800 ml -2100 ml LABS Lab: Laboratory Tests Test 02/10/19 22:05 02/11/19 06:00 Sodium Level 143 mmol/L (136-145) 142 mmol/L (136-145) Potassium Level 5.6 mmol/L (3.5-5.1) H 5.2 mmol/L (3.5-5.1) H Chloride Level 108 mmol/L (98-107) H 111 mmol/L (98-107) H Carbon Dioxide Level 20 mmol/L (21-32) L 19 mmol/L (21-32) L Anion Gap 15 (6-14) H 12 (6-14) Blood Urea Nitrogen 115 mg/dL (8-26) H 108 mg/dL (8-26) H Creatinine 5.3 mg/dL (0.7-1.3) H 4.5 mg/dL (0.7-1.3) H Estimated GFR (Cockcroft-Gault) 11.5 13.8 Glucose Level 112 mg/dL (70-99) H 106 mg/dL (70-99) H Calcium Level 7.9 mg/dL (8.5-10.1) L 7.8 mg/dL (8.5-10.1) L Creatine Kinase 166 U/L (39-308) White Blood Count 7.0 x10^3/uL (4.0-11.0) Red Blood Count 4.13 x10^6/uL (4.30-5.70) L Hemoglobin 12.1 g/dL (13.0-17.5) L Hematocrit 36.9 % (39.0-53.0) L Mean Corpuscular Volume 89 fL (79-100) Mean Corpuscular Hemoglobin 29 pg (25-35) Mean Corpuscular Hemoglobin Concent 33 g/dL (31-37) Red Cell Distribution Width 15.0 % (11.5-14.5) H Platelet Count 120 x10^3/uL (140-400) L Neutrophils (%) (Auto) 73 % (31-73) Lymphocytes (%) (Auto) 14 % (24-48) L Monocytes (%) (Auto) 11 % (0-9) H Eosinophils (%) (Auto) 3 % (0-3) Basophils (%) (Auto) 0 % (0-3) Neutrophils # (Auto) 5.1 x10^3/uL (1.8-7.7) Lymphocytes # (Auto) 0.9 x10^3/uL (1.0-4.8) L Monocytes # (Auto) 0.7 x10^3/uL (0.0-1.1) Eosinophils # (Auto) 0.2 x10^3/uL (0.0-0.7) Basophils # (Auto) 0.0 x10^3/uL (0.0-0.2) Laboratory Tests 02/11/19 06:00 Laboratory Tests 02/10/19 22:05 02/11/19 06:00 ECHOCARDIOGRAM ECHOCARDIOGRAM <Conclusion> Left ventricle ejection fraction is severely impaired. The Ejection Fraction is 15-20%. The left atrium is mildly dilated. Mild mitral regurgitation. Mild tricuspid regurgitation. The PA pressure was estimated at 42 mmHg. There is no evidence of significant pericardial effusion. DATE: 03/17/18 1120 STRESS TEST STRESS TEST Conclusion 1. No evidence of EKG changes to suggest ischemia with vasodilator testing. 2. Normal perfusion at stress/rest. 3. Mild LV dysfunction. EF 50% 4. Low to moderate risk for future CV events based on lower EF. DATE: 04/22/17 1306 HEART CATH HEART CATH Findings. Hemodynamics. Left ventricular pressure of 136/26, aortic root pressure 134/88. Coronaries. Left main. The left main had no lesions. Left anterior descending. The LAD had a mid 90% lesion. Left circumflex. The left circumflex had no lesions. Right coronary artery. The right coronary had a mid diffusely diseased lesion up to 80%. There was a second mid to distal lesion of 85%. <Conclusion> 2 vessel coronary artery disease. Successful stenting of the mid LAD decreasing a 90% lesion to 0%. Successful stenting of a distal right coronary artery lesion of 85% to 0% and a mid right coronary lesion of 80% to 0%. Bare-metal stents were placed. DATE: 03/08/15 3334 ASSESSMENT/PLAN ASSESSMENT/PLAN 1. Metabolic encephalopathy with underlying severe uremia and opioid/benzo use 2. Chronic pain syndrome: on chronic opioid and benzo use 3. Severe LEATHA on CKD: baseline stage 3. Suspect cardiorenal syndrome 4. Acute on Chronic diastolic/systolic CHF 5. HTN: labile 6. DM2/HLP: per PCP 7. CAD: PCI/BMS to LAD/RCA, clinically stable. 8. Severe cardiomyopathy: combined NICM/ICM. EF 15-20% 9. Hx of Noncompliance: due to financial constraints. Utilizes outreach clinics Recommendations 1. Hold home any ACEi/entresto and diuretics for now. Stop IVF approximate IVF received was 3L 2. CXR, BNP, Mg. Repeat BMP 3. Resume home DAPT and Restart home imdur and coreg 4. Will consider inotrope, await TTE 5. Will obtain accurate med list. GABRIEL CHOPRA APRN Feb 11, 2019 12:07
[2019-02-11] MEDS: ASPIRIN ENTERIC COATED 81 MG TABLET.DR. PO SCH (12:21)
[2019-02-11] MEDS: ISOSORBIDE MONONITRATE ER 30 MG TAB.ER.24H PO SCH (12:22)
[2019-02-11] MEDS: CLOPIDOGREL BISULFATE 75 MG TABLET PO SCH (12:22)
[2019-02-11] MEDS: CARVEDILOL 12.5 MG TABLET. PO SCH ×2 (12:22→17:59)
--- NOTE | 2019-02-11 12:22 | NUR ---
SS following for discharge planning. SS reviewed pt chart. Pt is self pay pt. HCFS following for self pay status. Pt is from home and is currently on room air. SS will continue to follow for discharge planning.
[2019-02-11 12:56] LABS: MAGNESIUM 2.1 mg/dL (1.8-2.4)
[2019-02-11 12:57] LABS: CHOLESTEROL/HDL RATIO 4.7
[2019-02-11 13:04] LABS: CALCIUM 7.9 mg/dL (8.5-10.1); CREATININE 3.6 mg/dL (0.7-1.3); GFR 17.9; POTASSIUM 5.3 mmol/L (3.5-5.1)
--- NOTE | 2019-02-11 13:07 | RAD ---
EXAM: CHEST 1 VIEW History: Congestive heart failure COMPARISON: 03/17/2018 TECHNIQUE: Single portable radiograph of the chest FINDINGS: Low lung volumes and technique accentuates heart size and pulmonary vascularity. Mild prominent bilateral interstitial lung markings. IMPRESSION: Mild prominent bilateral seminal markings likely mild congestive changes. Electronically signed by: Farzad Arzate MD (02/11/2019 1:04 PM) [place] [id number]
--- NOTE | 2019-02-11 13:31 | HP ---
ADMIT DATE: 02/10/2019 HISTORY OF PRESENT ILLNESS: The patient is a 53-year-old male patient who presented to [facility] Emergency Room with altered mental status. Apparently, he was brought by EMS due to weakness. This has been going on for the past several days. Nothing seems to make it better or worse. The patient denied any chest pain or palpitation. His blood sugar was in 130s. No fever and no specific weakness, just feeling generally tired. He was extensively investigated and was basically found to have low lung volumes and a chest x-ray with patchy alveolar opacities, most likely atelectasis. His lab work showed that his serum potassium was high at 5.3. His BUN was 130, creatinine was 6.5 and was basically transferred to [facility] for possibility that might require hemodialysis. PAST MEDICAL HISTORY: Significant for hypertension; coronary artery disease, status post PCI with stent deployment x 7. He has congestive heart failure due to ischemic cardiomyopathy and ejection fraction of only 15%, hyperlipidemia, type 2 diabetes, questionable benign prostatic hypertrophy as well as depression, congestive heart failure. He has also had generalized osteoarthritis and chronic back pain. PAST SURGICAL HISTORY: Significant for right ankle fracture, status post open reduction and internal fixation. He has also tonsillectomy. ALLERGIES: He has no known drug allergies. MEDICATIONS: We have not got the list of medications that he is on. He gets them from [facility]. FAMILY HISTORY: He had 3 brothers. They were older and all . One of heat stroke, one with COPD and liver cirrhosis and the other one of cancer. He has 4 sisters, one of them has . The other 3 are still healthy. His father in his 70s because of lung cancer. Mother in her 70s, also because of congestive heart failure. SOCIAL HISTORY: He is , has 3 daughters, 3 sons and 1 adopted. He never smoked. He claims that he drinks alcohol very seldom and does not use any drugs. 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 REVIEW OF SYSTEMS: The patient denied any blurring of vision, cataract, glaucoma or macular degeneration. Denied any earache, tinnitus or sensorineural deafness. Denied any nosebleeds, stuffy nose or postnasal drip. Denied any sore throat, sore tongue, toothache, hoarseness of voice or difficulty swallowing. Denied any nausea, vomiting, diarrhea or constipation. Denied any hematemesis, melena or hematochezia. Denied any dysuria, frequency or hematuria. Denied any chest pain, shortness of breath, orthopnea, paroxysmal nocturnal dyspnea. Denied any cough, phlegm or hemoptysis. Denied any dizziness, lightheadedness, or vertigo. Did complain of generalized weakness. PHYSICAL EXAMINATION: GENERAL: On arrival to the Emergency Room at [facility], he was noted to be pale. No jaundice, cyanosis, or thyromegaly. No jugular venous distension. No limb edema. VITAL SIGNS: His heart rate was 102, blood pressure was 121/72, temperature was 98.2, respiratory rate was 16, and oxygen saturation was 96%. HEAD, EYES, EARS, NOSE AND THROAT: Showed normocephalic, atraumatic. NECK: Supple. HEART: Showed normal first and second heart sounds. No gallop or murmur. CHEST: Clear to auscultation. No crepitation or rhonchi. ABDOMEN: Distended, soft, nontender. NEUROLOGIC: He was awake, alert, responding appropriately. All cranial nerves intact. EXTREMITIES: He moves extremities without difficulty. He had a chest x-ray, which showed that he has low lung volumes with patchy bibasilar opacities, most likely atelectasis. LABORATORY DATA: His lab work showed that his white cell count was 8100, hemoglobin 12.7, hematocrit 38.6, MCV 89 and platelet count of 150,000 with normal manual differential. His prothrombin time, INR and APTT were normal. His chemistry showed a serum sodium 139, potassium 5.3, chloride 102, bicarbonate 17, anion gap of 20, BUN 130, creatinine was 6.5, estimated GFR was 90 mL per minute. His glucose was 116. Lactic acid 0.9, calcium was 8.1, magnesium 2.4. Total bilirubin, AST, ALT, alkaline phosphatase were normal. CK was ____. First set of troponin was less than 0.017. Beta natriuretic peptide was 900. Total protein was 7.5, albumin was 3.2. His urinalysis showed the urine was yellow, cloudy with a pH of 5, specific gravity 1.025. There was large amount of protein. However, the urine was negative for glucose, ketones, blood, nitrite, bilirubin and leukocyte esterase, no rbc's, no wbc's, and no bacteria. His toxic screen was positive for benzodiazepines as well as opiates, was negative for methadone, acetaminophen, salicylate, barbiturates, phencyclidine, amphetamine, methamphetamine, cocaine, cannabinoids and blood alcohol level was less than 10 mg/dL. ASSESSMENT AND PLAN: The patient was transferred to [facility] with diagnosis of acute renal failure versus acute on chronic kidney injury. I managed to get his lab work on 03/19/2018. At that time, his creatinine was 2.1 mg/dL, so he has acute on chronic kidney injury, the cause of which obviously is not very clear. He definitely has no evidence of rhabdomyolysis given his CK was only ____. He has received about 3 liters of fluid in the Emergency Room and continued IV fluid at this facility. We will continue with normal saline at 150 mL per hour. Continue with his pain medication. We will contact the [facility] to find out exactly his medications that he is on. We will arrange for him to have ultrasound to make sure there is no evidence of obstruction and decide on further management accordingly. I have consulted the Nephrology team as well as Cardiology given that he has severe congestive heart failure, ischemic cardiomyopathy with an ejection fraction before of only 15%. SAMM PRASAD MD DR: OH/jose JOB#: [id number] / [id number]
[2019-02-11] MEDS ORDERED: SODIUM POLYSTYRENE SULFON/SORB 15 GM/60 ML ORAL.SUSP PO ONE (14:30)
--- NOTE | 2019-02-11 14:50 | CARD ---
MR#: [id number] Date of Study: 02/11/2019 Ordering Physician: GABRIEL CHOPRA, Referring Physician: GABRIEL CHOPRA, Tech: Lori Jenkins ONELIA APPROVED REPORT EXAM: Two-dimensional and M-mode echocardiogram with Doppler and color Doppler. Other Information Quality : GoodHR: 80bpm Rhythm : Other INDICATION Chest Pain 2D DIMENSIONS RVDd3.0 (2.9-3.5cm)Left Atrium(2D)4.4 (1.6-4.0cm) IVSd1.5 (0.7-1.1cm)Aortic Root(2D)3.7 (2.0-3.7cm) LVDd5.6 (3.9-5.9cm)LVOT Diameter2.2 (1.8-2.4cm) PWd1.2 (0.7-1.1cm)LVDs4.7 (2.5-4.0cm) FS (%) 16.8 %SV53.7 ml LVEF(%)34.6 (>50%) M-Mode DIMENSIONS Left Atrium(MM)4.20 (2.5-4.0cm)Aortic Root3.46 (2.2-3.7cm) Aortic Valve AoV Peak Santi.157.7cm/sAoV VTI27.1cm AO Peak GR.9.9mmHgLVOT VTI 14.33cm AO Mean GR.6mmHgAVA (VTI)2.10cm2 Mitral Valve MV E Eyljisfz27.9cm/sMV DECEL EXGM900di MV A Xkonslor28.8cm/sE/A Ratio0.9 MV A Vhiyqsmg724id Tricuspid Valve TR P. Dnljdsny923kj/sRAP PWPZGYER3ijYd TR Peak Gr.54uyXgTUUY18srEa LEFT VENTRICLE The Left Ventricle is borderline dilated. There is moderate concentric left ventricular hypertrophy. The left ventricular systolic function is moderately impaired. The Ejection Fraction is 30-35%. There is global hypokinesis of the left ventricle. Transmitral Doppler flow pattern is Grade I-abnormal re laxation pattern. RIGHT VENTRICLE The right ventricle is normal size. There is normal right ventricular wall thickness. The right ventr icular systolic function is normal. ATRIA The left atrium is mildly dilated. The right atrium size is normal. The interatrial septum is intact with no evidence for an atrial septal defect or patent foramen ovale as noted on 2-D or Doppler imagi ng. AORTIC VALVE The aortic valve is normal in structure and function. The aortic valve is trileaflet. Doppler and Col or Flow revealed no significant aortic regurgitation. There is no significant aortic valvular stenosi s. There is no aortic valvular vegetation. MITRAL VALVE The mitral valve is normal in structure and function. There is no evidence of mitral valve prolapse. There is no mitral valve stenosis. Doppler and Color-flow revealed trace mitral regurgitation. TRICUSPID VALVE The tricuspid valve is normal in structure and function. Doppler and Color Flow revealed trace tricus pid regurgitation. The PA pressure was estimated at 20 mmHg. There is no tricuspid valve prolapse or vegetation. There is no tricuspid valve stenosis. PULMONIC VALVE The pulmonary valve is normal in structure and function. Doppler and Color Flow revealed no pulmonic valvular regurgitation. There is no pulmonic valvular stenosis. GREAT VESSELS The aortic root is normal in size. The ascending aorta is normal in size. The IVC is normal in size a nd collapses >50% with inspiration. PERICARDIAL EFFUSION There is no evidence of significant pericardial effusion. Critical Notification Critical Value: No <Conclusion> The left ventricular systolic function is moderately impaired. The Ejection Fraction is 30-35%. Transmitral Doppler flow pattern is Grade I-abnormal relaxation pattern. Trace mitral regurgitation. Trace tricuspid regurgitation. The PA pressure was estimated at 20 mmHg. There is no evidence of significant pericardial effusion. Signed by : Amish Zepeda, Electronically Approved : 02/11/2019 14:49:26
--- NOTE | 2019-02-11 14:59 | PN ---
DATE: 02/11/2019 SUBJECTIVE: The patient is a 53-year-old male patient who was seen yesterday at the Emergency Room of [facility] with generalized weakness. He was found to have acute on chronic kidney injury as well as hyperkalemia. His BUN was 138 and creatinine was 6.2. Potassium was 5.6. He was given about 3 liters of fluid, was transferred to [facility] where we have continued IV fluid in the form of normal saline at 150 mL per hour. When I saw him this morning, he looked well and was resting slightly, propped up in bed, in no apparent distress. On questioning him, he denied any chest pain or shortness of breath. Denied any other complaints. PHYSICAL EXAMINATION: GENERAL: When I examined him, he looked slightly pale, but no jaundice, cyanosis or thyromegaly. No jugular venous distension. No lower limb edema. VITAL SIGNS: His heart rate was 92, blood pressure was 167/99, temperature was 97.8, respiratory rate was 18, and oxygen saturation was 100%. HEAD, EYES, EARS, NOSE AND THROAT: Showed normocephalic, atraumatic. NECK: Supple. HEART: Showed normal first and second heart sounds with no gallop, rub or murmur. CHEST: Clear to auscultation. No crepitation or rhonchi. ABDOMEN: Distended, soft, nontender. NEUROLOGIC: He was awake, alert, responding appropriately. All cranial nerves are intact. He moves extremities without difficulty. His intake over the last 24 hours was 700, output was 3250. LABORATORY DATA: His lab work this morning showed that his serum sodium was 142, potassium 5.2, chloride 111, bicarbonate 19, anion gap of 12, BUN of 108, creatinine was 4.5, estimated GFR was ____ mL per minute. His glucose was 106, calcium was 7.8. White cell count was 7000, hemoglobin 12, hematocrit 36, MCV 89, and platelet count of 120,000. ASSESSMENT: In summary, this is a 53-year-old male patient who was admitted with acute on chronic kidney injury. His baseline creatinine was 2.5 on 02/2018. He is responding to IV fluid. Apparently, he has had ultrasound of his kidneys, which showed no obstruction at least by the account of the engineering technician parking. He has multiple other medical problems including hypertension, coronary artery disease, status post PCI with stent deployment, congestive heart failure due to ischemic cardiomyopathy with ejection fraction of only 15%, has type 2 diabetes, hyperlipidemia, chronic back pain, osteoarthritis and questionable benign prostatic hypertrophy. PLAN: To continue with IV fluid and so far, there is no need for any hemodialysis. I did consult the Cardiology to evaluate the patient given that he has severe ischemic cardiomyopathy with ejection fraction of 15%, now coming with acute on chronic kidney injury. SAMM PRASAD MD DR: OH/jose JOB#: [id number] / [id number]
--- NOTE | 2019-02-11 15:13 | PDOC2 ---
CONSULT Date of Consult Date of Consult DATE: 02/11/19 TIME: 14:53 Reason for Consult Reason for Consult: LEATHA Identification/Chief Complaint Chief Complaint None this morning Source Source: Chart review, Patient History of Present Illness Reason for Visit: Pt is a 53-year-old male patient who presented to [facility] Emergency Room with altered mental status. Apparently, he was brought by EMS due to weakness which has been going on for th e past several days. He denies any chest pain or palpitation. No fever States just feeling generally tired. He was extensively investigated and was basically found to have low lung volumes and a chest x-ray with patchy alveolar opacities, most likely atelectasis. His lab work showed that his serum potassium was high at 5.3. His BUN was 130, creatinine was 6.5 and wa transferred to [facility] He reports he was at [facility] 6-8 weeks ago and required HD x2 . He doesn't know the details. He states he was advised to see Advertising Consultant in the past as well but cant do it as doesn't have insurance He denies any urinary complaints, No symptoms of UTI prior to admission . No N/V/D He states he has been taking Aleve 6-8 /day pretty often . denies use of ETOH or Illicit drugs Past Medical History Cardiovascular: CAD, CHF, HTN, Hyperlipidemia, Other Pulmonary: Other CENTRAL NERVOUS SYSTEM: Other GI: GERD Psych: Depression Musculoskeletal: Osteoarthritis, Other Infectious disease: No pertinent hx Renal/: Chronic renal insuff Endocrine: Diabetes Past Surgical History Past Surgical History: Tonsillectomy, Other Family History Family History: Coronary Artery Disease Social History ALCOHOL: none Drugs: None Lives: with Family Current Medications Current Medications Current Medications Amlodipine Besylate (Norvasc) 5 mg DAILY PO ; Start 02/11/19 at 09:00; Stop 02/10/19 at 21:58; Status DC Sodium Chloride 1,000 ml @ 50 mls/hr Q20H IV ; Start 02/10/19 at 21:45; Stop 02/10/19 at 23:08; Status DC Amlodipine Besylate (Norvasc) 5 mg 1X ONCE PO ; Start 02/10/19 at 22:00; Stop 02/10/19 at 22:01; Status DC Acetaminophen/ Hydrocodone Bitart (Lortab 10/325) 2 tab PRN Q6HRS PRN PO PAIN Last administered on 02/11/19at 12:18; Start 02/10/19 at 22:00 Sodium Chloride 1,000 ml @ 150 mls/hr Q6H40M IV Last administered on 02/11/19at 05:55; Start 02/10/19 at 23:00; Stop 02/11/19 at 11:57; Status DC Influenza Virus Vaccine Quadrival (Afluria Quad 2019-20 (3yr Up) Syringe) 0.5 ml ONCE ONCE VAX IM ; Start 02/11/19 at 09:00; Stop 02/11/19 at 09:01; Status UNV Clopidogrel Bisulfate (Plavix) 75 mg DAILYWBKFT PO Last administered on 02/11/19at 12:22; Start 02/11/19 at 12:30 Isosorbide Mononitrate (Imdur) 60 mg DAILY PO Last administered on 02/11/19at 12:22; Start 02/11/19 at 13:00 Carvedilol (Coreg) 25 mg BIDWMEALS PO Last administered on 02/11/19at 12:22; Start 02/11/19 at 12:30 Aspirin (Ecotrin) 81 mg DAILYWBKFT PO Last administered on 02/11/19at 12:22; Start 02/11/19 at 13:00 Sodium Polystyrene Sulfonate (Kayexalate) 30 gm 1X ONCE PO ; Start 02/11/19 at 14:30; Stop 02/11/19 at 14:31; Status DC Active Scripts Active Trazodone Hcl 50 Mg Tablet 1 Tab PO QHS Furosemide 40 Mg Tablet 40 Mg PO BID94 Gabapentin 300 Mg Capsule 600 Mg PO TID Aspirin Ec (Aspirin) 81 Mg Tablet.dr 81 Mg PO DAILYWBKFT 60 Days Lisinopril 40 Mg Tablet 20 Mg PO DAILY 30 Days Isosorbide Mononitrate Er (Isosorbide Mononitrate) 30 Mg Tab.er.24h 60 Mg PO DAILY 30 Days Atorvastatin Calcium 40 Mg Tablet 40 Mg PO QHS 30 Days Glimepiride 4 Mg Tablet 1 Tab PO BID Plavix (Clopidogrel Bisulfate) 75 Mg Tablet 75 Mg PO DAILYWBKFT [Aspirin] 325 MG Tablet 325 Mg PO DAILYWBKFT Januvia (Sitagliptin Phosphate) 100 Mg Tablet 1 Tab PO DAILY Reported Temazepam 30 Mg Capsule 1 Cap PO QHS Potassium Chloride 20 Meq Tablet.er 20 Meq PO DAILY Spironolactone 25 Mg Tablet 1 Tab PO DAILY [intresto] 97,103 Mg PO BID Cyclobenzaprine Hcl 10 Mg Tablet 1 Tab PO TID PRN Carvedilol 25 Mg Tablet 25 Mg PO BIDWMEALS Tribenzor 40-5-12.5 Mg Tablet (Olmesartan/Amlodipin/Hcthiazid) 1 Each Tablet 1 Each PO TID Ropinirole Hcl 2 Mg Tablet 0.5 Mg PO QHS Neurontin (Gabapentin) 300 Mg Capsule 3 Cap PO TID Hydrocodone-Apap 10-300 (Hydrocodone Bit/Acetaminophen) 1 Each Tablet 1 Tab PO Q6HRS PRN Amitriptyline Hcl 100 Mg Tablet 1 Tab PO QHS Allergies Allergies: Coded Allergies: No Known Drug Allergies (Unverified , 07/22/14) ROS Review of System Per HPI Physical Exam Physical Exam GENERAL: On arrival to the Emergency Room at [facility], he was noted to be pale. No jaundice, cyanosis, or thyromegaly. No jugular venous distension. No limb edema. VITAL SIGNS: His heart rate was 102, blood pressure was 121/72, temperature was 98.2, respiratory rate was 16, and oxygen saturation was 96%. HEAD, EYES, EARS, NOSE AND THROAT: Showed normocephalic, atraumatic. NECK: Supple. HEART: Showed normal first and second heart sounds. No gallop or murmur. CHEST: Clear to auscultation. No crepitation or rhonchi. ABDOMEN: Distended, soft, nontender. NEUROLOGIC: He was awake, alert, responding appropriately. All cranial nerves intact. EXTREMITIES: He moves extremities without difficulty. Vital Signs Vital Signs Date Time Temp Pulse Resp B/P (MAP) Pulse Ox O2 Delivery O2 Flow Rate FiO2 02/11/19 14:41 12 99 Room Air 02/11/19 12:22 86 159/99 02/11/19 08:00 97.8 97.8 Assessment & Plan LEATHA - Pre-renal/ Cardiorenal Recent admission at [facility] requiring HD x 2 ,Awaiting records Responded to IVF with Renal function showing improvement, UOP good, UA unremarkable Supportive care,strict I/O , cautious with IVF due to CHF daily weight , Monitor Renal US ordered Currently no emergent indication for SHEARING SHED [employer] Hyperkalemia- No EKG changes Improved CKD stage 3 - Suspects ec to HTN and CHF Chronic pain syndrome: on chronic opioid and benzo use Acute on Chronic diastolic/systolic CHF EF 15% HTN: labile, stable DM2 : per PCP CAD: PCI/BMS to LAD/RCA, clinically stable. Hx of Noncompliance: due to lack of insurance Labs Labs Laboratory Tests Test 02/10/19 22:05 02/11/19 06:00 02/11/19 12:45 Sodium Level 143 mmol/L (136-145) 142 mmol/L (136-145) 140 mmol/L (136-145) Potassium Level 5.6 mmol/L (3.5-5.1) 5.2 mmol/L (3.5-5.1) 5.3 mmol/L (3.5-5.1) Chloride Level 108 mmol/L (98-107) 111 mmol/L (98-107) 108 mmol/L (98-107) Carbon Dioxide Level 20 mmol/L (21-32) 19 mmol/L (21-32) 20 mmol/L (21-32) Anion Gap 15 (6-14) 12 (6-14) 12 (6-14) Blood Urea Nitrogen 115 mg/dL (8-26) 108 mg/dL (8-26) 97 mg/dL (8-26) Creatinine 5.3 mg/dL (0.7-1.3) 4.5 mg/dL (0.7-1.3) 3.6 mg/dL (0.7-1.3) Estimated GFR (Cockcroft-Gault) 11.5 13.8 17.9 Glucose Level 112 mg/dL (70-99) 106 mg/dL (70-99) 92 mg/dL (70-99) Calcium Level 7.9 mg/dL (8.5-10.1) 7.8 mg/dL (8.5-10.1) 7.9 mg/dL (8.5-10.1) Creatine Kinase 166 U/L (39-308) White Blood Count 7.0 x10^3/uL (4.0-11.0) Red Blood Count 4.13 x10^6/uL (4.30-5.70) Hemoglobin 12.1 g/dL (13.0-17.5) Hematocrit 36.9 % (39.0-53.0) Mean Corpuscular Volume 89 fL (79-100) Mean Corpuscular Hemoglobin 29 pg (25-35) Mean Corpuscular Hemoglobin Concent 33 g/dL (31-37) Red Cell Distribution Width 15.0 % (11.5-14.5) Platelet Count 120 x10^3/uL (140-400) Neutrophils (%) (Auto) 73 % (31-73) Lymphocytes (%) (Auto) 14 % (24-48) Monocytes (%) (Auto) 11 % (0-9) Eosinophils (%) (Auto) 3 % (0-3) Basophils (%) (Auto) 0 % (0-3) Neutrophils # (Auto) 5.1 x10^3/uL (1.8-7.7) Lymphocytes # (Auto) 0.9 x10^3/uL (1.0-4.8) Monocytes # (Auto) 0.7 x10^3/uL (0.0-1.1) Eosinophils # (Auto) 0.2 x10^3/uL (0.0-0.7) Basophils # (Auto) 0.0 x10^3/uL (0.0-0.2) Magnesium Level 2.1 mg/dL (1.8-2.4) YM-Wqi-E-Type Natriuretic Peptide 980 pg/mL (0-124) Triglycerides Level 165 mg/dL (0-150) Cholesterol Level 123 mg/dL (0-200) LDL Cholesterol, Calculated 64 mg/dL (0-100) VLDL Cholesterol, Calculated 33 mg/dL (0-40) Non-HDL Cholesterol Calculated 97 mg/dL (0-129) HDL Cholesterol 26 mg/dL (40-60) Cholesterol/HDL Ratio 4.7 Laboratory Tests Test 02/10/19 22:05 02/11/19 06:00 02/11/19 12:45 Sodium Level 143 mmol/L (136-145) 142 mmol/L (136-145) 140 mmol/L (136-145) Potassium Level 5.6 mmol/L (3.5-5.1) 5.2 mmol/L (3.5-5.1) 5.3 mmol/L (3.5-5.1) Chloride Level 108 mmol/L (98-107) 111 mmol/L (98-107) 108 mmol/L (98-107) Carbon Dioxide Level 20 mmol/L (21-32) 19 mmol/L (21-32) 20 mmol/L (21-32) Anion Gap 15 (6-14) 12 (6-14) 12 (6-14) Blood Urea Nitrogen 115 mg/dL (8-26) 108 mg/dL (8-26) 97 mg/dL (8-26) Creatinine 5.3 mg/dL (0.7-1.3) 4.5 mg/dL (0.7-1.3) 3.6 mg/dL (0.7-1.3) Estimated GFR (Cockcroft-Gault) 11.5 13.8 17.9 Glucose Level 112 mg/dL (70-99) 106 mg/dL (70-99) 92 mg/dL (70-99) Calcium Level 7.9 mg/dL (8.5-10.1) 7.8 mg/dL (8.5-10.1) 7.9 mg/dL (8.5-10.1) Creatine Kinase 166 U/L (39-308) White Blood Count 7.0 x10^3/uL (4.0-11.0) Red Blood Count 4.13 x10^6/uL (4.30-5.70) Hemoglobin 12.1 g/dL (13.0-17.5) Hematocrit 36.9 % (39.0-53.0) Mean Corpuscular Volume 89 fL (79-100) Mean Corpuscular Hemoglobin 29 pg (25-35) Mean Corpuscular Hemoglobin Concent 33 g/dL (31-37) Red Cell Distribution Width 15.0 % (11.5-14.5) Platelet Count 120 x10^3/uL (140-400) Neutrophils (%) (Auto) 73 % (31-73) Lymphocytes (%) (Auto) 14 % (24-48) Monocytes (%) (Auto) 11 % (0-9) Eosinophils (%) (Auto) 3 % (0-3) Basophils (%) (Auto) 0 % (0-3) Neutrophils # (Auto) 5.1 x10^3/uL (1.8-7.7) Lymphocytes # (Auto) 0.9 x10^3/uL (1.0-4.8) Monocytes # (Auto) 0.7 x10^3/uL (0.0-1.1) Eosinophils # (Auto) 0.2 x10^3/uL (0.0-0.7) Basophils # (Auto) 0.0 x10^3/uL (0.0-0.2) Magnesium Level 2.1 mg/dL (1.8-2.4) EW-Iaw-C-Type Natriuretic Peptide 980 pg/mL (0-124) Triglycerides Level 165 mg/dL (0-150) Cholesterol Level 123 mg/dL (0-200) LDL Cholesterol, Calculated 64 mg/dL (0-100) VLDL Cholesterol, Calculated 33 mg/dL (0-40) Non-HDL Cholesterol Calculated 97 mg/dL (0-129) HDL Cholesterol 26 mg/dL (40-60) Cholesterol/HDL Ratio 4.7 Review All relevant outside records, renal labs, imaging studies, telemetry/EKG's were reviewed. Images Images Cxr- 02/10-- 1. Borderline cardiomegaly. 2. Tortuous aorta. 3. No acute infiltrates CxR- 02/11 Mild prominent bilateral seminal markings likely mild congestive changes. MARTIN ESTEVEZ MD Feb 11, 2019 15:13
[2019-02-11 15:51] LABS: BILIRUBIN,URINE NEGATIVE (NEG); CLARITY,URINE CLEAR; COLOR,URINE YELLOW; NITRITE,URINE NEGATIVE (NEG); PH,URINE 5.5; PROTEIN,URINE 100 mg/dL (NEG-TRACE)
[2019-02-11 15:58] LABS: BACTERIA,URINE 0 /HPF (0-FEW); RBC,URINE 0 /HPF (0-2); WBC,URINE OCC /HPF (0-4)
[2019-02-11] MEDS ORDERED: PANT20TA2 PO (18:41)
[2019-02-11] MEDS ORDERED: SACU1TAB4 PO (18:41)
[2019-02-11] MEDS ORDERED: GABA300C18 PO (18:41)
[2019-02-11] MEDS ORDERED: LABETALOL 20 MG/4 ML DISP.SYRIN. IVP ONE (20:30)
[2019-02-11] MEDS: TEMAZEPAM 15 MG CAPSULE PO SCH (21:58)
[2019-02-11] MEDS: CYCLOBENZAPRINE 10 MG TABLET. PO PRN (21:58)
[2019-02-12] VITALS (7 sets, daily range): BP systolic 166–209; BP diastolic 88–108
[2019-02-12] MEDS: LABETALOL 20 MG/4 ML DISP.SYRIN. IVP PRN ×5 (01:44→23:06)
[2019-02-12] MEDS: HYDROcodone/APAP 10/325 1 TAB TABLET PO PRN ×3 (04:11→20:26)
[2019-02-12 07:09] LABS: ALBUMIN 2.8 g/dL (3.4-5.0); ALBUMIN/GLOBULIN RATIO 0.8 (1.0-1.7); CALCIUM 7.8 mg/dL (8.5-10.1); CREATININE 3.1 mg/dL (0.7-1.3); GFR 21.3; POTASSIUM 4.8 mmol/L (3.5-5.1); TOTAL BILIRUBIN 0.2 mg/dL (0.2-1.0); TOTAL PROTEIN 6.3 g/dL (6.4-8.2)
[2019-02-12] MEDS: CARVEDILOL 12.5 MG TABLET. PO SCH ×2 (08:16→17:37)
[2019-02-12] MEDS: CLOPIDOGREL BISULFATE 75 MG TABLET PO SCH (08:16)
[2019-02-12] MEDS: ASPIRIN ENTERIC COATED 81 MG TABLET.DR. PO SCH (08:17)
[2019-02-12] MEDS: ISOSORBIDE MONONITRATE ER 30 MG TAB.ER.24H PO SCH (08:17)
--- NOTE | 2019-02-12 09:07 | PN ---
DATE: 02/12/2019 SUBJECTIVE: The patient is resting, slightly propped up in bed, no apparent distress, awake, alert. On questioning him, he denied any complaint, in particular denied any chest pain or shortness of breath. He said he could not sleep last night, although he was given his Flexeril and Restoril. Nursing staff are concerned that his blood pressure was extremely high at 194/101. PHYSICAL EXAMINATION: GENERAL: When I examined him this morning, he looked pale, but no jaundice or cyanosis. No lymphadenopathy or thyromegaly. No jugular venous distension. No limb edema. VITAL SIGNS: His heart rate was 89, blood pressure was 194/101, temperature was 98, respiratory rate was 18 and oxygen saturation was 98%. HEAD, EYES, EARS, NOSE AND THROAT: Showed normocephalic, atraumatic. NECK: Supple. HEART: Showed normal first and second heart sounds. No murmurs. CHEST: Clear to auscultation. No crepitation or rhonchi. ABDOMEN: Distended, soft, nontender. No guarding or rigidity. No organomegaly. All hernial orifices intact. Bowel sounds normal. NEUROLOGIC: He was awake, alert, responding appropriately. All cranial nerves are intact. He moves extremities without difficulty. He ambulates without assistance or assistive devices. His intake over the last 24 hours was 700, output was 3250. LABORATORY DATA: His lab work this morning showed a serum sodium 141, potassium 4.8, chloride 107, bicarbonate 19, anion gap of 15, BUN 84, creatinine was 3.1, estimated GFR was 21 mL per minute, his glucose 123, calcium was 7.8. Total bilirubin, AST, ALT, alkaline phosphatase were normal. Total protein was 6.3, albumin was 2.8. ASSESSMENT: 1. Acute on chronic kidney injury. He apparently had an episode of acute renal failure requiring hemodialysis x 2 at [facility]. His kidney function is improving. His creatinine is down from 6.2 to 3.1. 2. Chronic kidney disease, stage 3. 3. Acute on chronic diastolic-systolic congestive heart failure, ejection fraction has improved from 15% to 35%; hypertension; type 2 diabetes; coronary artery disease, status post PCI with bare metal stent to left anterior descending and right coronary artery. Currently, chest pain free. PLAN: Plan is to obviously continue with current management. He has multiple medications that he brought with him from home that some of them are not labeled and maybe that he is taking most of these says as he is advised being on lisinopril 40 mg, olmesartan/amlodipine//hydrochlorothiazide. He was also on Entresto as well as spironolactone. I will certainly hold the lisinopril, olmesartan and hydrochlorothiazide, again also Entresto as also the MEAGHAN inhibitor. We should maybe add amlodipine to control his blood pressure. SAMM PRASAD MD DR: OH/jose JOB#: [id number] / [id number]
--- NOTE | 2019-02-12 13:30 | PDOC ---
SUBJECTIVE ROS No complaints OBJECTIVE Vital Signs Vital Signs Date Time Temp Pulse Resp B/P (MAP) Pulse Ox O2 Delivery O2 Flow Rate FiO2 02/12/19 13:21 79 194/103 02/12/19 11:00 97.8 18 97 Room Air 97.8 I & 0 Intake and Output 02/12/19 06:59 Intake Total 4175 ml Output Total 5900 ml Balance -1725 ml Intake Oral 3200 ml IV Total 975 ml Output Urine Total 5900 ml # Bowel Movements 1 PHYSICAL EXAM Physical Exam GENERAL: NAD HEEN-OM moist NECK: Supple. HEART: RRR, No rub ABDOMEN: soft, nontender. NEUROLOGIC: Grossly normal EXTR: No edema Eldridge + DIAGNOSIS/ASSESSMENT Assessment & Plan LEATHA - Pre-renal/ Cardiorenal Recent admission at [facility] requiring HD x 2 ,Records still unavailable Renal function improving, UOP good, UA unremarkable Supportive care,strict I/O , daily weight , Monitor , Daily BMP Renal US unremarkable Currently no emergent indication for COUNTY [employer]ELF[employer] Hyperkalemia- No EKG changes Improved CKD stage 3 - Suspects ec to HTN and CHF Chronic pain syndrome: on chronic opioid and benzo use Acute on Chronic diastolic/systolic CHF EF 15% HTN: labile, stable DM2 : per PCP CAD: PCI/BMS to LAD/RCA, clinically stable. Hx of Noncompliance: due to lack of insurance COMMENT/RELEVANT DATA Meds Current Medications Medications (Trade) Dose Ordered Sig/Jerri Start Time Stop Time Status Last Admin Dose Admin Acetaminophen/ Hydrocodone Bitart (Lortab 10/325) 2 tab PRN Q6HRS PRN 02/10/19 22:00 02/12/19 04:11 2 TAB Amlodipine Besylate (Norvasc) 5 mg 1X ONCE 02/10/19 22:00 02/10/19 22:01 DC Aspirin (Ecotrin) 81 mg DAILYWBKFT 02/11/19 13:00 02/12/19 08:18 81 MG Atorvastatin Calcium (Lipitor) 40 mg QHS 02/12/19 21:00 Carvedilol (Coreg) 25 mg BIDWMEALS 02/11/19 12:30 02/12/19 08:18 25 MG Clopidogrel Bisulfate (Plavix) 75 mg DAILYWBKFT 02/11/19 12:30 02/12/19 08:18 75 MG Cyclobenzaprine HCl (Flexeril) 10 mg PRN TID PRN 02/11/19 21:30 02/11/19 21:58 10 MG Influenza Virus Vaccine Quadrival (Afluria Quad 2019-20 (3yr Up) Syringe) 0.5 ml ONCE ONCE 02/11/19 09:00 02/11/19 09:01 UNV Isosorbide Mononitrate (Imdur) 60 mg DAILY 02/11/19 13:00 02/12/19 08:18 60 MG Labetalol HCl (Normodyne Iv Push) 20 mg PRN Q3HRS PRN 02/11/19 20:15 02/12/19 13:21 20 MG Sodium Polystyrene Sulfonate (Kayexalate) 30 gm 1X ONCE 02/11/19 14:30 02/11/19 14:31 DC 02/11/19 15:10 30 GM Sodium Chloride 1,000 ml @ 150 mls/hr Q6H40M 02/10/19 23:00 02/11/19 11:57 DC 02/11/19 05:55 150 MLS/HR Temazepam (Restoril) 30 mg QHS 02/11/19 21:30 02/11/19 21:58 30 MG Lab Laboratory Tests Test 02/11/19 15:15 02/12/19 05:45 Urine Collection Type Unknown Urine Color Yellow Urine Clarity Clear Urine pH 5.5 Urine Specific [place] 1.015 Urine Protein 100 mg/dL (NEG-TRACE) Urine Glucose (UA) Negative mg/dL (NEG) Urine Ketones (Stick) Negative mg/dL (NEG) Urine Blood Trace (NEG) Urine Nitrite Negative (NEG) Urine Bilirubin Negative (NEG) Urine Urobilinogen Dipstick 1.0 mg/dL (0.2 mg/dL) Urine Leukocyte Esterase Negative (NEG) Urine RBC 0 /HPF (0-2) Urine WBC Occ /HPF (0-4) Urine Bacteria 0 /HPF (0-FEW) Urine Mucus Slight /LPF Sodium Level 141 mmol/L (136-145) Potassium Level 4.8 mmol/L (3.5-5.1) Chloride Level 107 mmol/L (98-107) Carbon Dioxide Level 19 mmol/L (21-32) Anion Gap 15 (6-14) Blood Urea Nitrogen 84 mg/dL (8-26) Creatinine 3.1 mg/dL (0.7-1.3) Estimated GFR (Cockcroft-Gault) 21.3 BUN/Creatinine Ratio 27 (6-20) Glucose Level 123 mg/dL (70-99) Calcium Level 7.8 mg/dL (8.5-10.1) Total Bilirubin 0.2 mg/dL (0.2-1.0) Aspartate Amino Transf (AST/SGOT) 20 U/L (15-37) Alanine Aminotransferase (ALT/SGPT) 18 U/L (16-63) Alkaline Phosphatase 111 U/L (46-116) Total Protein 6.3 g/dL (6.4-8.2) Albumin 2.8 g/dL (3.4-5.0) Albumin/Globulin Ratio 0.8 (1.0-1.7) Results All relevant outside records, renal labs, imaging studies, telemetry/EKG's were reviewed. Other Right kidney: measures 11.4 x 4.8 x 5.4 cm. Normal cortical echotexture. Corticomedullary differentiation is preserved. No hydronephrosis. No renal cyst. No solid renal mass or calculus. Left kidney: measures 12.0 x 4.5 x 5.7 cm. Normal cortical echotexture. Corticomedullary differentiation is preserved. No hydronephrosis. No renal cyst. No solid renal mass or calculus. Urinary bladder: Decompressed urinary bladder with Eldridge catheter in place. IMPRESSION: 1. Unremarkable renal ultrasound. 2. Decompressed urinary bladder. MARTIN ESTEVEZ MD Feb 12, 2019 13:30
--- NOTE | 2019-02-12 13:54 | PDOC ---
CARDIO Progress Notes Date and Time Date of Service 02/12/2019 Time of Evaluation 1330 Subjective Subjective: No Chest Pain, No Palpitations, Other (SOA with activity) Vitals Vitals Vital Signs Date Time Temp Pulse Resp B/P (MAP) Pulse Ox O2 Delivery O2 Flow Rate FiO2 02/12/19 13:21 79 194/103 02/12/19 11:00 97.8 18 97 Room Air 97.8 Weight Weight [ ] Input and Output Intake and Output Intake and Output 02/12/19 06:59 Intake Total 4175 ml Output Total 5900 ml Balance -1725 ml Intake Oral 3200 ml IV Total 975 ml Output Urine Total 5900 ml # Bowel Movements 1 Laboratory Labs Laboratory Tests Test 02/11/19 15:15 02/12/19 05:45 Urine Collection Type Unknown Urine Color Yellow Urine Clarity Clear Urine pH 5.5 Urine Specific [place] 1.015 Urine Protein 100 mg/dL (NEG-TRACE) Urine Glucose (UA) Negative mg/dL (NEG) Urine Ketones (Stick) Negative mg/dL (NEG) Urine Blood Trace (NEG) Urine Nitrite Negative (NEG) Urine Bilirubin Negative (NEG) Urine Urobilinogen Dipstick 1.0 mg/dL (0.2 mg/dL) Urine Leukocyte Esterase Negative (NEG) Urine RBC 0 /HPF (0-2) Urine WBC Occ /HPF (0-4) Urine Bacteria 0 /HPF (0-FEW) Urine Mucus Slight /LPF Sodium Level 141 mmol/L (136-145) Potassium Level 4.8 mmol/L (3.5-5.1) Chloride Level 107 mmol/L (98-107) Carbon Dioxide Level 19 mmol/L (21-32) Anion Gap 15 (6-14) Blood Urea Nitrogen 84 mg/dL (8-26) Creatinine 3.1 mg/dL (0.7-1.3) Estimated GFR (Cockcroft-Gault) 21.3 BUN/Creatinine Ratio 27 (6-20) Glucose Level 123 mg/dL (70-99) Calcium Level 7.8 mg/dL (8.5-10.1) Total Bilirubin 0.2 mg/dL (0.2-1.0) Aspartate Amino Transf (AST/SGOT) 20 U/L (15-37) Alanine Aminotransferase (ALT/SGPT) 18 U/L (16-63) Alkaline Phosphatase 111 U/L (46-116) Total Protein 6.3 g/dL (6.4-8.2) Albumin 2.8 g/dL (3.4-5.0) Albumin/Globulin Ratio 0.8 (1.0-1.7) Physical Exam HEENT: Neck Supple W Full Motion Chest: Symmetric LUNGS: Other (rhonchi basilar crackles) Heart: RRR (SR) Abdomen: Soft N/T Extremities: No Calf Tenderness Neurology: alert, oriented, follow commands Assessment Assessment 1. Metabolic encephalopathy with underlying severe uremia and opioid/benzo use. Resolved 2. Chronic pain syndrome: on chronic opioid and benzo use 3. Severe LEATHA on CKD: baseline stage 3. possibly med induced after reviewing his meds. 4. Acute on Chronic diastolic/systolic CHF: exacerbated by renal failure 5. HTN urgency: labile 6. DM2/HLP: per PCP 7. CAD: PCI/BMS to LAD/RCA, clinically stable. 8. Severe cardiomyopathy: combined NICM/ICM. EF 30-35% 9. Hx of Noncompliance: due to financial constraints. Utilizes outreach clinics Recommendations 1. I reviewed his medications and he does take seroquel, ropinorole, tinzanidine, flexeril, neurontin, opioid and restoril which were contributing to his altered mentation. Defer to PCP to reeval needs 2. He also takes high entresto with aldactone and lasix. This could very contributed to his renal failure. Hold these meds for now 3. Lasix therapy. IV x1 now. hydralazine IV and start on PO. Continue coreg and could up titrate imdur 4. Continue ASA and plavix. Discussed compliance. 5. Await nephrology input in regards to his renal failure. GABRIEL CHOPRA OPERATING ROOM TECH Feb 12, 2019 13:54
[2019-02-12] MEDS ORDERED: hydrALAZINE 20 MG/ML VIAL. IVP ONE (14:00)
[2019-02-12] MEDS ORDERED: FUROSEMIDE 40 MG/4 ML VIAL. IVP ONE (14:00)
[2019-02-12] MEDS ORDERED: ATORVASTATIN CALCIUM 40 MG TABLET. PO SCH (21:00)
[2019-02-12] MEDS: TEMAZEPAM 15 MG CAPSULE PO SCH (21:04)
[2019-02-12] MEDS: CYCLOBENZAPRINE 10 MG TABLET. PO PRN (21:04)
[2019-02-13] MEDS: HYDROcodone/APAP 10/325 1 TAB TABLET PO PRN ×2 (02:38→08:45)
[2019-02-13 02:41] VITALS: BP 169/98
[2019-02-13] MEDS: LABETALOL 20 MG/4 ML DISP.SYRIN. IVP PRN (02:57)
[2019-02-13 04:23] LABS: CALCIUM 8.6 mg/dL (8.5-10.1); CREATININE 2.4 mg/dL (0.7-1.3); GFR 28.6
[2019-02-13 07:00] VITALS: BP 186/96
[2019-02-13] MEDS: ASPIRIN ENTERIC COATED 81 MG TABLET.DR. PO SCH (08:44)
[2019-02-13] MEDS: ISOSORBIDE MONONITRATE ER 30 MG TAB.ER.24H PO SCH (08:44)
[2019-02-13] MEDS: CLOPIDOGREL BISULFATE 75 MG TABLET PO SCH (08:44)
[2019-02-13] MEDS: CARVEDILOL 12.5 MG TABLET. PO SCH (08:45)
[2019-02-13 10:43] VITALS: BP 186/96
--- NOTE | 2019-02-13 11:43 | NUR ---
PT DID NOT RECEIVE NOSIN OR CHG BATH TODAY HE REQUESTED TO LEAVE AMA. PT WAS EDUCATED ON THE IMPORTANCE OF STAYING. PT REFUSED STATING THAT HE HAD TO LEAVE FOR A OF A FAMILY FRIEND. PT WAS GIVEN ALL BELONGINGS AT THE TIME OF DISCHARGE AND PHARMACY BROUGHT UP ALL MEDICATION. MEDICATION GIVEN TO THE PT STILL IN SECURE SEALED BAGS UPON DISCHARGE. TRIED TO EXPLAIN TO THE PATIENT AGAIN THAT IT WAS IMPORTANT FOR HIM TO STAY REGARDING BLOOD PRESSURE CONCERNS. PT REFUSED CAT SCAN AND SPOKE WITH DR PRASAD IN LENGTH ABOUT THE IMPORTANCE OF STAYING. PT STILL REQUESTED TO LEAVE AMA.
--- NOTE | 2019-02-13 12:16 | NUR ---
PT ESCORTED TO DOOR WITH SECURITY AND STAFF TO VEHICLE.
== END 2019-02-13 12:21 | disposition left against medical advice (07) | DRG 682 ==
LOC: 1 WEST ICU 20:25 → 2 SOUTH 02-11 15:49
PROVIDERS: ADMIT Internal Medicine; ATTEND Internal Medicine
DX: N17.9 Acute kidney failure, unspecified (principal); G93.41 Metabolic encephalopathy; I50.43 Acute on chronic combined systolic (congestive) and diastolic (congestive) heart failure; I13.0 Hypertensive heart and chronic kidney disease with heart failure and stage 1 through stage 4 chronic kidney disease, or unspecified chronic kidney disease; E11.22 Type 2 diabetes mellitus with diabetic chronic kidney disease; E78.5 Hyperlipidemia, unspecified; E87.5 Hyperkalemia; F13.90 Sedative, hypnotic, or anxiolytic use, unspecified, uncomplicated; F32.9 Major depressive disorder, single episode, unspecified; M19.90 Unspecified osteoarthritis, unspecified site; G25.81 Restless legs syndrome; G47.33 Obstructive sleep apnea (adult) (pediatric); G89.4 Chronic pain syndrome; Z53.21 Procedure and treatment not carried out due to patient leaving prior to being seen by health care provider; I16.0 Hypertensive urgency; I25.10 Atherosclerotic heart disease of native coronary artery without angina pectoris; I25.5 Ischemic cardiomyopathy; K21.9 Gastro-esophageal reflux disease without esophagitis; N18.3 Chronic kidney disease, stage 3 (moderate); Z79.891 Long term (current) use of opiate analgesic; Z80.1 Family history of malignant neoplasm of trachea, bronchus and lung; Z82.49 Family history of ischemic heart disease and other diseases of the circulatory system; Z82.5 Family history of asthma and other chronic lower respiratory diseases; Z91.19 Patient's noncompliance with other medical treatment and regimen; Z95.5 Presence of coronary angioplasty implant and graft
CPT/HCPCS: 36415; 71045; 76770; 80048; 80053; 80061; 81001; 82550; 83735; 83880; 85025; 93306; J0360; J1940; J3490; J7030; G0378

== ENCOUNTER 2019-03-17 13:35 | Inpatient (IN) | payer SELFPAY ==
[~2019-03-17] VITALS: Ht 177.8 cm; Wt 85.8 kg
[~2019-03-17 13:35] MED LIST changes: -GLIM4TAB2 PO; +GLIM4TAB4 PO; +PANT20TA2 PO; +POTA20TA82 PO; +SACU1TAB4 PO; +SPIR25TA5 PO; +[UNRECOGNIZED DRUG - OTHER] PO
[2019-03-17] MEDS ORDERED: ASPIRIN CHEWABLE 81 MG TABLET. PO STA (14:11)
--- NOTE | 2019-03-17 14:11 | PHYS DOC ---
Past Medical History Past Medical History: Arthritis, CHF, Diabetes-Type II, Hypertension, Pneumonia, Other Additional Past Medical Histor: HERNIATED DISC IN BACK,chronic back pain,RLS, BLE neurop,BACK FX Past Surgical History: Angioplasty, Tonsillectomy, Other Additional Past Surgical Histo: L ANKLE/WRIST ORIF,CARDIAC STENTS Alcohol Use: None Drug Use: None Adult General Chief Complaint Chief Complaint: SHORTNESS OF BREATH [facility] HPI Patient is a 53 year old male who presents with shortness of breath, and chest pain that's been ongoing for a couple days. The patient states that last night he started getting epigastric pain after he was eating. It felt like something was stuck in his chest however that sensation is gone. The patient states he's also been coughing, and spitting up some blood from time to time. The patient states he passed out a week and a half ago and was admitted to [facility]. The patient has a history of a CVA and has left-sided facial droop as a residual baseline. The patient also has a history of hypertension, and diabetes. He rates his pain as 6 out of 10 in severity and sharp. The patient states his baseline is 5 out of 10. Review of Systems Review of Systems Constitutional: Denies fever or chills [] Eyes: Denies change in visual acuity, redness, or eye pain [] HENT: Denies nasal congestion or sore throat [] Respiratory: Reports cough and shortness of breath [] Cardiovascular: No additional information not addressed in HPI [] GI: Denies abdominal pain, nausea, vomiting, bloody stools or diarrhea [] : Denies dysuria or hematuria [] Musculoskeletal: Denies back pain or joint pain [] Integument: Denies rash or skin lesions [] Neurologic: Denies headache, focal weakness or sensory changes [] Endocrine: Denies polyuria or polydipsia [] Complete systems were reviewed and found to be within normal limits, except as documented in this note. Current Medications Current Medications Current Medications Medications (Trade) Dose Ordered Sig/Jerri Start Time Stop Time Status Last Admin Dose Admin Aspirin (Children'S Aspirin) 324 mg 1X STAT 03/17/19 14:11 03/17/19 14:13 DC 03/17/19 14:31 324 MG Calcium Gluconate (Calcium Gluconate) 1,000 mg 1X 03/17/19 15:40 UNV Cefepime HCl (Maxipime) 2 gm 1X ONCE 03/17/19 15:15 03/17/19 15:16 DC Dextrose (Dextrose 50%-Water Syringe) 25 gm 1X STAT 03/17/19 15:27 03/17/19 15:32 DC Insulin Human Regular (HumuLIN R VIAL) 10 unit 1X STAT 03/17/19 15:27 03/17/19 15:32 DC Levofloxacin/ Dextrose 150 ml @ 100 mls/hr 1X ONCE 03/17/19 15:15 03/17/19 16:44 Sodium Polystyrene Sulfonate (Kayexalate) 15 gm 1X STAT 03/17/19 15:27 03/17/19 15:32 DC Vancomycin HCl 2 gm/Sodium Chloride 500 ml @ 250 mls/hr 1X ONCE 03/17/19 16:00 03/17/19 17:59 Allergies Allergies Allergies Coded Allergies Type Severity Reaction Last Updated Verified No Known Drug Allergies 07/22/14 No Physical Exam Physical Exam Constitutional: Well developed, well nourished, no acute distress, non-toxic appearance. [] HENT: Normocephalic, atraumatic, bilateral external ears normal, oropharynx moist, no oral exudates, nose normal. [] Eyes: PERRLA, EOMI, conjunctiva normal, no discharge. [] Neck: Normal range of motion, no tenderness, supple, no stridor. [] Cardiovascular:Heart rate regular rhythm, no murmur [] Lungs & Thorax: Bilateral breath sounds clear to auscultation with exception of decreased lung sounds and crackles on left side. Abdomen: Bowel sounds normal, soft, no tenderness, no masses, no pulsatile masses. [] Skin: Warm, dry, no erythema, no rash. [] Back: No tenderness, no CVA tenderness. [] Extremities: No tenderness, no cyanosis, no clubbing, ROM intact, no edema. [] Neurologic: Alert and oriented X 3, normal motor function, normal sensory function, no focal deficits noted. [] Psychologic: Affect normal, judgement normal, mood normal. [] Current Patient Data Vital Signs Vital Signs Date Time Temp Pulse Resp B/P (MAP) Pulse Ox O2 Delivery O2 Flow Rate FiO2 03/17/19 14:52 92 22 136/85 (102) 94 Nasal Cannula 2.0 03/17/19 13:59 97.6 97.6 Lab Values Laboratory Tests Test 03/17/19 14:26 White Blood Count 16.4 x10^3/uL (4.0-11.0) H Red Blood Count 4.38 x10^6/uL (4.30-5.70) Hemoglobin 12.6 g/dL (13.0-17.5) L Hematocrit 38.5 % (39.0-53.0) L Mean Corpuscular Volume 88 fL (79-100) Mean Corpuscular Hemoglobin 29 pg (25-35) Mean Corpuscular Hemoglobin Concent 33 g/dL (31-37) Red Cell Distribution Width 15.1 % (11.5-14.5) H Platelet Count 162 x10^3/uL (140-400) Neutrophils (%) (Auto) 93 % (31-73) H Lymphocytes (%) (Auto) 2 % (24-48) L Monocytes (%) (Auto) 5 % (0-9) Eosinophils (%) (Auto) 0 % (0-3) Basophils (%) (Auto) 0 % (0-3) Neutrophils # (Auto) 15.2 x10^3/uL (1.8-7.7) H Lymphocytes # (Auto) 0.3 x10^3/uL (1.0-4.8) L Monocytes # (Auto) 0.8 x10^3/uL (0.0-1.1) Eosinophils # (Auto) 0.0 x10^3/uL (0.0-0.7) Basophils # (Auto) 0.0 x10^3/uL (0.0-0.2) Segmented Neutrophils % 73 % (35-66) H Band Neutrophils % 19 % (0-9) H Lymphocytes % 3 % (24-48) L Monocytes % 4 % (0-10) Basophils % 1 % (0-3) Toxic Vacuolation Slight Platelet Estimate Adequate (ADEQUATE) Prothrombin Time 12.9 SEC (11.7-14.0) Prothrombin Time INR 1.0 (0.8-1.1) Activated Partial Thromboplast Time 29 SEC (24-38) D-Dimer (Jennifer) 1.03 ug/mlFEU (0.00-0.50) H Sodium Level 138 mmol/L (136-145) Potassium Level 6.4 mmol/L (3.5-5.1) *H Chloride Level 105 mmol/L (98-107) Carbon Dioxide Level 21 mmol/L (21-32) Anion Gap 12 (6-14) Blood Urea Nitrogen 50 mg/dL (8-26) H Creatinine 3.0 mg/dL (0.7-1.3) H Estimated GFR (Cockcroft-Gault) 22.1 BUN/Creatinine Ratio 17 (6-20) Glucose Level 255 mg/dL (70-99) H Lactic Acid Level 3.6 mmol/L (0.4-2.0) H Calcium Level 8.9 mg/dL (8.5-10.1) Total Bilirubin 0.6 mg/dL (0.2-1.0) Aspartate Amino Transferase (AST) 20 U/L (15-37) Alanine Aminotransferase (ALT) 15 U/L (16-63) L Alkaline Phosphatase 73 U/L (46-116) Creatine Kinase 98 U/L (39-308) Creatine Kinase MB (Mass) 3.1 ng/mL (0.0-3.6) Creatine Kinase MB Relative Index 3.2 % (0-4) Troponin I Quantitative 0.284 ng/mL (0.000-0.055) MZ-Vos-H-Type Natriuretic Peptide 4473 pg/mL (0-124) H Total Protein 7.2 g/dL (6.4-8.2) Albumin 3.1 g/dL (3.4-5.0) L Albumin/Globulin Ratio 0.8 (1.0-1.7) L Laboratory Tests 03/17/19 14:26 Laboratory Tests 03/17/19 14:26 EKG EKG EKG interpreted by Dr. Edmond Sinus with rate of 94 bpm, ventricular hypertrophy, left axis deviation, No STEMI, t wave inversion; these are consistent with past EKG on 03/17/2018. Radiology/Procedures Radiology/Procedures [][facility] [address] [place] [address] IMAGING REPORT Signed PATIENT: BERTRAND COLMENARES SACCOUNT: [id number] : 1965 LOCATION: ER AGE: 53 SEX: M EXAM STATUS: REG ER ORD. PHYSICIAN: SOLO COUGHLIN APRN REASON: sob, epigastric pain PROCEDURE: CHEST PA & LATERAL PA and lateral chest x-ray compared to portable chest x-ray dated February 11, 2019 for shortness of breath, epigastric pain. FINDINGS: There is a new extensive infiltrate throughout the left midlung, with a smaller area of infiltrate involving the right medial lung base. Heart size is borderline enlarged but stable. No osseous abnormalities. IMPRESSION: 1. New extensive left lung infiltrate with a smaller area of right medial basilar infiltrate. Electronically signed by: Kyle Saavedra MD (03/17/2019 2:56 PM) [facility] DICTATED and SIGNED BY: KYLE SAAVEDRA MD DATE: 03/17/19 0451 Course & Med Decision Making Course & Med Decision Making Pertinent Labs and Imaging studies reviewed. (See chart for details) Will get EKG, Labs, Chest X-ray, Lactic, D-dimer. D-dimer is elevated at 1.03--Will order VQ scan. WBC is 16,400 Troponin is 0.284 Creatinine is 3.0 (baseline) BNP 4473 Lactic is 3.6 Patient appears to have pneumonia. Will start Cefepime 2 gram, Levofloxacin 750 mg, and Vanc. Potassium is 6.4--Will give Calcium Gluconate x 3, Insulin, Amp of d50, and Kayexalate. Patient is septic. Will hold septic fluids as vitals are currently stable and has a EF of 15% with hx of CHF. Discussed with Dr. Chacon who accepts admission to hospital. Will consult Pulmonary. Susan Disclaimer Susan Disclaimer This electronic medical record was generated, in whole or in part, using a voice recognition dictation system. Departure Departure Impression: Primary Impression: Pneumonia Additional Impressions: Hyperkalemia Sepsis D-dimer, elevated Elevated troponin Disposition: ADMITTED INPATIENT Admitting Physician: LIZ Condition: CRITICAL Referrals: SUSAN MARY DO (PCP) The HEART Score for CP Pts HEART Score for Chest Pain: HEART Score for Chest Pain Response (Comments) Value History Moderately Suspicious 1 ECG Nonspecific Repolarizatio 1 Age >45 - < 65 1 Risk Factors >3 Risk Factors or Hx CAD 2 Troponin < Normal Limit 0 Total 5 Risk Factors: Risk Factors: DM, Current or recent (<one month) smoker, HTN, HLP, family history of CAD, obesity. Risk Scores: Score 0 - 3: 2.5% MACE over next 6 weeks - Discharge Home Score 4 - 6: 20.3% MACE over next 6 weeks - Admit for Clinical Observation Score 7 - 10: 72.7% MACE over next 6 weeks - Early Invasive Strategies Date and Time of Reassessment Date: Mar 17, 2019 Time: 15:42 Fluid Challenge Is the fluid challenge complet: No IBW Target Volume Used: No BMI > 30: No Vital Signs Vital Signs: Vital Signs Date Time Temp Pulse Resp B/P (MAP) Pulse Ox O2 Delivery O2 Flow Rate FiO2 03/17/19 14:52 92 22 136/85 (102) 94 Nasal Cannula 2.0 03/17/19 13:59 97.6 97.6 Temperature Source: Oral Respirations Respiratory Effort: Normal Cardiovascular Pulse Rhythm: Regular Heart: Nml S1, S2, no murmurs Lung Sounds Breath Sounds: Crackles Capillary Refil Capillary Refill: Rt Hand < 3 seconds Peripheral Pulse Pulse Location: Radial Pulse Strength: Normal (2+) Pulse Assessment Method: NIBP Integumentary Skin: Warm Skin Moisture: Dry Skin Turgor: Normal Skin Color: warm, dry Fingernail Color: WNL Problem Qualifiers Additional Impressions: Sepsis Sepsis type: sepsis due to unspecified organism Sepsis acute organ dysfunc tion status: unspecified Qualified Codes: A41.9 - Sepsis, unspecified organism SOLO OCUGHLIN APRN Mar 17, 2019 14:11
--- NOTE | 2019-03-17 14:43 | EKG ---
[facility] [address] [place] [address] Test Date: 2019-03-17 Test Time: 14:04:14 Pat Name: BERTRAND COLMENARES Department: Room: Gender: M Director Of Medical Services: : 1965 Requested By: SOLO COUGHLIN Order Number: [id number] Reading MD: Beck Cedeño MD Measurements Intervals [place] Rate: 94 P: 0 CT: 172 QRS: -22 QRSD: 90 T: 132 QT: 356 QTc: 451 Interpretive Statements SINUS RHYTHM CONSISTENT WITH ANTEROSEPTAL INFARCT NON-SPECIFIC ST/T CHANGES Electronically Signed On 03-31-2019 8:50:18 [employer]IR[employer] INSPECTOR by Beck Cedeño MD
[2019-03-17 14:49] LABS: BASO % 0 % (0-3); EOS % 0 % (0-3); HEMATOCRIT 38.5 % (39.0-53.0); HEMOGLOBIN 12.6 g/dL (13.0-17.5); LYMPH # 0.3 x10^3/uL (1.0-4.8); LYMPH % 2 % (24-48); MEAN CORPUSCULAR HEMOGLOBIN 29 pg (25-35); MEAN CORPUSCULAR HGB CONC 33 g/dL (31-37); MEAN CORPUSCULAR VOLUME 88 fL (79-100); MONO # 0.8 x10^3/uL (0.0-1.1); MONO % 5 % (0-9); NEUT # 15.2 x10^3/uL (1.8-7.7); NEUT % 93 % (31-73); PLATELET COUNT 162 x10^3/uL (140-400); RED BLOOD COUNT 4.38 x10^6/uL (4.30-5.70); RED CELL DISTRIBUTION WIDTH 15.1 % (11.5-14.5); WHITE BLOOD COUNT 16.4 x10^3/uL (4.0-11.0)
[2019-03-17 14:58] LABS: PROTHROMBIN TIME PATIENT 12.9 SEC (11.7-14.0)
[2019-03-17 14:59] LABS: ALBUMIN 3.1 g/dL (3.4-5.0); ALBUMIN/GLOBULIN RATIO 0.8 (1.0-1.7); CALCIUM 8.9 mg/dL (8.5-10.1); GFR 22.1; TOTAL BILIRUBIN 0.6 mg/dL (0.2-1.0); TOTAL PROTEIN 7.2 g/dL (6.4-8.2)
--- NOTE | 2019-03-17 14:59 | RAD ---
PA and lateral chest x-ray compared to portable chest x-ray dated February 11, 2019 for shortness of breath, epigastric pain. FINDINGS: There is a new extensive infiltrate throughout the left midlung, with a smaller area of infiltrate involving the right medial lung base. Heart size is borderline enlarged but stable. No osseous abnormalities. IMPRESSION: 1. New extensive left lung infiltrate with a smaller area of right medial basilar infiltrate. Electronically signed by: Kyle Lindo MD (03/17/2019 2:56 PM) [facility]
[2019-03-17 15:02] LABS: D-DIMER 1.03 ug/mlFEU (0.00-0.50)
[2019-03-17 15:07] LABS: % BANDS 19 % (0-9); % BASOS 1 % (0-3); % LYMPHS 3 % (24-48); % MONOS 4 % (0-10); % SEGS 73 % (35-66); PLT ESTIMATE ADEQUATE (ADEQUATE); TOXIC VACUOLATION SLIGHT
[2019-03-17] MEDS ORDERED: CEFEPIME HCL IV Push 2 GM VIAL. IVP ONE (15:15)
[2019-03-17 15:21] LABS: POTASSIUM 6.4 mmol/L (3.5-5.1)
[2019-03-17] MEDS ORDERED: DEXTROSE 50% 25 GM / 50ML DISP.SYRIN. IV STA (15:27)
[2019-03-17] MEDS ORDERED: SODIUM POLYSTYRENE SULFON/SORB 15 GM/60 ML ORAL.SUSP PO STA (15:27)
[2019-03-17] MEDS ORDERED: INSULIN REGULAR 100 UNIT/ML 3ML VIAL. IV STA (15:27)
[2019-03-17] MEDS ORDERED: CALCIUM GLUCONATE 1,000 MG/10 ML VIAL. IVP STA (15:27)
[2019-03-17] MEDS ORDERED: CALCIUM GLUCONATE 1,000 MG/10 ML VIAL. IVP SCH ×2 (15:35→15:40)
[2019-03-17] MEDS ORDERED: VANCOMYCIN 2 GM in IV NORMAL SALINE 500ML BAG 500 ML IV ONE (16:00)
[2019-03-17] MEDS ORDERED: CALCIUM GLUCONATE 1,000 MG/10 ML VIAL. IV ONE ×2 (16:15→16:20)
[2019-03-17] MEDS ORDERED: fentaNYL PF VIAL 100 MCG/2 ML VIAL IV ONE (17:00)
--- NOTE | 2019-03-17 17:14 | RAD ---
EXAM: VENTILATION/PERFUSION SCINTIGRAPHY. HISTORY: Shortness of breath, elevated d-dimer, hemoptysis. Assess for pulmonary embolism. TECHNIQUE: 5.0 mCi Xe-133 was inhaled and ventilation images were obtained. 5.5 mCi Tc-99m MAA was injected intravenously and perfusion images were obtained in multiple projections. COMPARISON: Today's chest radiograph. FINDINGS: There is a large ventilation defect throughout the left upper lobe and likely the superior segment of the left lower lobe. Ventilation appears preserved on the right. There is a large matched perfusion defect throughout the superior segment of the left lower lobe and the left upper lobe. These correspond with infiltrates on today's radiographs. IMPRESSION: 1. A large triple match within the left lung healed intermediate probability for pulmonary embolism, though pneumonia and autoregulation could explain these findings if clinically consistent. CTA could further exclude pulmonary embolism if there is persistent concern. Electronically signed by: Jeremy Kaplan MD (03/17/2019 5:11 PM) [facility]
--- NOTE | 2019-03-17 17:44 | NUR ---
The patient, BERTRAND COLMENARES, 53 y/o, M admitted by LES ZHAO III, DO, was given written information regarding hospital policies, unit procedures and contact persons.
[2019-03-17] MEDS ORDERED: LABE100T5 PO (18:25)
[2019-03-17] MEDS ORDERED: HYDROcodone/APAP 7.5/325MG 1 TAB TABLET PO PRN (18:45)
--- NOTE | 2019-03-17 18:48 | HP ---
ADMIT DATE: 03/17/2019 CHIEF COMPLAINT: Shortness of breath. HISTORY OF PRESENT ILLNESS: The patient is a pleasant 53-year-old male, presented with shortness of breath. This has been occurring for several days. He has some associated epigastric pain. He tried taking [id number] meds, but that did not work. We did a chest x-ray, which is showing new extensive left lung infiltrate. I discussed the case with ER physician. We are going to admit the patient and consult Pulmonary Medicine. PAST MEDICAL HISTORY: Previous pneumonia, diabetes, hypertension, CHF, herniated disk, chronic pain, RLS, back fracture, tonsillectomy, left ankle surgery, wrist surgery, cardiac stents, chronic renal insufficiency and actually he was on dialysis for a while. ALLERGIES: None. FAMILY HISTORY: Coronary artery disease. SOCIAL HISTORY: He does not drink, smoke or take drugs. MEDICATIONS: Reviewed, please refer to the MRAD. REVIEW OF SYSTEMS: GENERAL: No history of weight change, weakness or fevers. SKIN: No bruising, hair changes or rashes. EYES: No blurred, double or loss of vision. NOSE AND THROAT: No history of nosebleeds, hoarseness or sore throat. HEART: No history of palpitations, chest pain or shortness of breath on exertion. LUNGS: He complains of shortness of breath. GASTROINTESTINAL: Denies changes in appetite, nausea, vomiting, diarrhea or constipation. GENITOURINARY: No history of frequency, urgency, hesitancy or nocturia. NEUROLOGIC: Denies history of numbness, tingling, tremor or weakness. PSYCHIATRIC: No history of panic, anxiety or depression. ENDOCRINE: No history of heat or cold intolerance, polyuria or polydipsia. EXTREMITIES: Denies muscle weakness, joint pain, pain on walking or stiffness. PHYSICAL EXAMINATION: VITALS: Within normal limits and are stable. GENERAL: No apparent distress. Alert and oriented. HEENT: Head is normocephalic, atraumatic, pupils were equally round and reactive to light and accommodation. NECK: Supple, no JVD, no thyromegaly was noted. LUNGS: He has decreased breath sounds on the left. HEART: RRR, S1, S2 present. Peripheral pulses intact, no obvious murmurs were noted. ABDOMEN: Soft, nontender. Positive bowel sounds no organomegaly, normal bowel sounds. EXTREMITIES: Without any cyanosis, clubbing, or edema. Pedal pulses intact, Homans sign is negative. NEUROLOGIC: Normal speech, normal tone. A & O x3, moves all extremities, no obvious focal deficits. PSYCHIATRIC: Normal affect, normal mood. Stable. SKIN: No ulcerations or rashes, good skin turgor, no jaundice. VASCULAR: Good capillary refill, neurovascular bundle appears to be intact. LABORATORY DATA: White count 16, hemoglobin 12.6. Potassium is 6.4. BNP 4473, troponin 0.284, creatinine 3. ASSESSMENT AND PLAN: Pneumonia, respiratory failure, hyperkalemia, elevated troponin, although I suspect that it is secondary to his chronic renal insufficiency and sepsis with elevated lactic acid and white count elevation. The patient is being admitted. We will start IV antibiotics. Consult Infectious Disease, consult Pulmonary. DuoNebs, oxygen, home meds, DVT prophylaxis, full code, consult Dr. Martinez. LES ZHAO DO DR: DOROTHEA/jose JOB#: [id number] / [id number]
[2019-03-17 19:43] VITALS: BP 149/75
[2019-03-17] MEDS ORDERED: AMITRIPTYLINE HCL 25 MG TABLET. PO SCH (21:00)
[2019-03-17] MEDS: SACUBITRIL/VALSARTAN 49/51MG TABLET. PO SCH (21:11)
[2019-03-17] MEDS: ATORVASTATIN CALCIUM 40 MG TABLET. PO SCH (21:12)
[2019-03-17] MEDS: FUROSEMIDE 40 MG TABLET. PO SCH (21:12)
[2019-03-17] MEDS: ASPIRIN ENTERIC COATED 81 MG TABLET.DR. PO SCH (21:12)
[2019-03-17] MEDS: rOPINIRole 0.25 MG TABLET. PO SCH (21:12)
[2019-03-17] MEDS: SPIRONOLACTONE 25 MG TABLET PO SCH (21:12)
[2019-03-17] MEDS: LINAGLIPTIN 5 MG TABLET PO SCH (21:12)
[2019-03-17] MEDS: GABAPENTIN 300 MG CAPSULE. PO SCH (21:12)
[2019-03-17] MEDS: LABETALOL HCL 100 MG TABLET. PO SCH (21:13)
[2019-03-17] MEDS: GLIMEPIRIDE 2 MG TABLET. PO SCH (21:13)
[2019-03-17] MEDS: TEMAZEPAM 15 MG CAPSULE PO SCH (21:13)
[2019-03-17] MEDS: traZODone 50 MG TABLET. PO SCH (21:13)
[2019-03-17] MEDS: PANTOPRAZOLE 40 MG TABLET.DR. PO SCH (21:14)
[2019-03-17] MEDS: CLOPIDOGREL BISULFATE 75 MG TABLET PO SCH (21:14)
[2019-03-17 23:20] VITALS: BP 158/83
[2019-03-18 02:53] VITALS: BP 133/75
[2019-03-18 07:00] VITALS: BP 137/75
--- NOTE | 2019-03-18 07:28 | PDOC ---
PROGRESS NOTES History of Present Illness History of Present Illness ASSESSMENT Pneumonia, POSSIBLE ASPIRATION New extensive left lung infiltrate with a smaller area of right medial basilar infiltrate. acute respiratory failure, hyperkalemia, elevated troponin, DEMAND ISCHEMIA chronic renal insufficiency sepsis elevated lactic acid NO PE obesity Hx of cocaine abuse: recently noted on 03/01 [facility] RECENT ECHO The left ventricular systolic function is moderately impaired. The Ejection Fraction is 30-35%. Transmitral Doppler flow pattern is Grade I-abnormal relaxation pattern. admitted. IV antibiotics. zosyn, vancomycin blood culture Consult Infectious Disease, consult Pulmonary. DuoNebs, oxygen support, home meds, DVT prophylaxis, full code, consult Dr. Martinez., nephrology CARDIOLOGY CONSULT 38 Min pt exam, chart review, > 50% of time spent with exam, chart review, pt care coordination Vitals Vitals Vital Signs Date Time Temp Pulse Resp B/P (MAP) Pulse Ox O2 Delivery O2 Flow Rate FiO2 03/18/19 02:53 98.6 95 20 133/75 (94) 95 Room Air 98.6 03/17/19 19:12 2.0 Physical Exam Physical Exam GENERAL: No apparent distress. Alert and oriented. HEENT: Head is normocephalic, atraumatic, pupils were equally round and reactive to light and accommodation. NECK: Supple, no JVD, no thyromegaly was noted. LUNGS: He has decreased breath sounds on the left. HEART: RRR, S1, S2 present. Peripheral pulses intact, no obvious murmurs were noted. ABDOMEN: Soft, nontender. Positive bowel sounds no organomegaly, normal bowel sounds. EXTREMITIES: Without any cyanosis, clubbing, or edema. Pedal pulses intact, Homans sign is negative. NEUROLOGIC: Normal speech, normal tone. A & O x3, moves all extremities, no obvious focal deficits. PSYCHIATRIC: Normal affect, normal mood. Stable. SKIN: No ulcerations or rashes, good skin turgor, no jaundice. VASCULAR: Good capillary refill, neurovascular bundle appears to be intact. General: Alert, Oriented X3, Cooperative, No acute distress Lungs: Clear, Other Abdomen: Normal bowel sounds, Soft Extremities: No cyanosis Labs LABS EXAM: Two-dimensional and M-mode echocardiogram with Doppler and color Doppler. Other Information Quality : Good HR: 80bpm Rhythm : Other INDICATION Chest Pain 2D DIMENSIONS RVDd 3.0 (2.9-3.5cm) Left Atrium(2D) 4.4 (1.6-4.0cm) IVSd 1.5 (0.7-1.1cm) Aortic Root(2D) 3.7 (2.0-3.7cm) LVDd 5.6 (3.9-5.9cm) LVOT Diameter 2.2 (1.8-2.4cm) PWd 1.2 (0.7-1.1cm) LVDs 4.7 (2.5-4.0cm) FS (%) 16.8 % SV 53.7 ml LVEF(%) 34.6 (>50%) M-Mode DIMENSIONS Left Atrium(MM) 4.20 (2.5-4.0cm) Aortic Root 3.46 (2.2-3.7cm) Aortic Valve AoV Peak Santi. 157.7cm/s AoV VTI 27.1cm AO Peak GR. 9.9mmHg LVOT VTI 14.33cm AO Mean GR. 6mmHg LALO (VTI) 2.10cm2 Mitral Valve MV E Velocity 82.9cm/s MV DECEL TIME 176ms MV A Velocity 89.8cm/s E/A Ratio 0.9 MV A Duration 105ms Tricuspid Valve TR P. Velocity 208cm/s RAP ESTIMATE 3mmHg TR Peak Gr. 17mmHg RVSP 20mmHg LEFT VENTRICLE The Left Ventricle is borderline dilated. There is moderate concentric left ventricular hypertrophy. The left ventricular systolic function is moderately impaired. The Ejection Fraction is 30-35%. There is global hypokinesis of the left ventricle. Transmitral Doppler flow pattern is Grade I-abnormal relaxation pattern. RIGHT VENTRICLE The right ventricle is normal size. There is normal right ventricular wall thickness. The right ventricular systolic function is normal. ATRIA The left atrium is mildly dilated. The right atrium size is normal. The interatrial septum is intact with no evidence for an atrial septal defect or patent foramen ovale as noted on 2-D or Doppler imaging. AORTIC VALVE The aortic valve is normal in structure and function. The aortic valve is trileaflet. Doppler and Color Flow revealed no significant aortic regurgitation. There is no significant aortic valvular stenosis. There is no aortic valvular vegetation. MITRAL VALVE The mitral valve is normal in structure and function. There is no evidence of mitral valve prolapse. There is no mitral valve stenosis. Doppler and Color-flow revealed trace mitral regurgitation. TRICUSPID VALVE The tricuspid valve is normal in structure and function. Doppler and Color Flow revealed trace tricuspid regurgitation. The PA pressure was estimated at 20 mmH g. There is no tricuspid valve prolapse or vegetation. There is no tricuspid valve stenosis. PULMONIC VALVE The pulmonary valve is normal in structure and function. Doppler and Color Flow revealed no pulmonic valvular regurgitation. There is no pulmonic valvular stenosis. GREAT VESSELS The aortic root is normal in size. The ascending aorta is normal in size. The IVC is normal in size and collapses >50% with inspiration. PERICARDIAL EFFUSION There is no evidence of significant pericardial effusion. Critical Notification Critical Value: No <Conclusion> The left ventricular systolic function is moderately impaired. The Ejection Fraction is 30-35%. Transmitral Doppler flow pattern is Grade I-abnormal relaxation pattern. Trace mitral regurgitation. Trace tricuspid regurgitation. The PA pressure was estimated at 20 mmHg. There is no evidence of significant pericardial effusion. Signed by : Jerrod Villalobos, Electronically Approved : 02/11/2019 14:49:26 DICTATED and SIGNED BY: JERROD VILLALOBOS MD DATE: 02/11/19 0007 EXAM: VENTILATION/PERFUSION SCINTIGRAPHY. HISTORY: Shortness of breath, elevated d-dimer, hemoptysis. Assess for pulmonary embolism. TECHNIQUE: 5.0 mCi Xe-133 was inhaled and ventilation images were obtained. 5.5 mCi Tc-99m MAA was injected intravenously and perfusion images were obtained in multiple projections. COMPARISON: Today's chest radiograph. FINDINGS: There is a large ventilation defect throughout the left upper lobe and likely the superior segment of the left lower lobe. Ventilation appears preserved on the right. There is a large matched perfusion defect throughout the superior segment of the left lower lobe and the left upper lobe. These correspond with infiltrates on today's radiographs. IMPRESSION: 1. A large triple match within the left lung healed intermediate probability for pulmonary embolism, though pneumonia and autoregulation could explain these findings if clinically consistent. CTA could further exclude pulmonary embolism if there is persistent concern. Electronically signed by: Jeremy Kaplan MD (03/17/2019 5:11 PM) [facility] DICTATED and SIGNED BY: ANGIE KAPLAN MD DATE: 03/17/19 5642 PATIENT: BERTRAND COLMENARES SACCOUNT: [id number] : 1965 LOCATION: ER AGE: 53 SEX: M EXAM STATUS: REG ER ORD. PHYSICIAN: SOLO COUGHLIN APRN REASON: sob, epigastric pain PROCEDURE: CHEST PA & LATERAL PA and lateral chest x-ray compared to portable chest x-ray dated February 11, 2019 for shortness of breath, epigastric pain. FINDINGS: There is a new extensive infiltrate throughout the left midlung, with a smaller area of infiltrate involving the right medial lung base. Heart size is borderline enlarged but stable. No osseous abnormalities. IMPRESSION: 1. New extensive left lung infiltrate with a smaller area of right medial basilar infiltrate. Electronically signed by: Kyle Saavedra MD (03/17/2019 2:56 PM) [facility] DICTATED and SIGNED BY: KYLE SAAVEDRA MD DATE: 03/17/19 1456 Laboratory Tests Test 03/17/19 14:26 03/17/19 16:00 03/17/19 18:00 White Blood Count 16.4 x10^3/uL (4.0-11.0) Red Blood Count 4.38 x10^6/uL (4.30-5.70) Hemoglobin 12.6 g/dL (13.0-17.5) Hematocrit 38.5 % (39.0-53.0) Mean Corpuscular Volume 88 fL (79-100) Mean Corpuscular Hemoglobin 29 pg (25-35) Mean Corpuscular Hemoglobin Concent 33 g/dL (31-37) Red Cell Distribution Width 15.1 % (11.5-14.5) Platelet Count 162 x10^3/uL (140-400) Neutrophils (%) (Auto) 93 % (31-73) Lymphocytes (%) (Auto) 2 % (24-48) Monocytes (%) (Auto) 5 % (0-9) Eosinophils (%) (Auto) 0 % (0-3) Basophils (%) (Auto) 0 % (0-3) Neutrophils # (Auto) 15.2 x10^3/uL (1.8-7.7) Lymphocytes # (Auto) 0.3 x10^3/uL (1.0-4.8) Monocytes # (Auto) 0.8 x10^3/uL (0.0-1.1) Eosinophils # (Auto) 0.0 x10^3/uL (0.0-0.7) Basophils # (Auto) 0.0 x10^3/uL (0.0-0.2) Segmented Neutrophils % 73 % (35-66) Band Neutrophils % 19 % (0-9) Lymphocytes % 3 % (24-48) Monocytes % 4 % (0-10) Basophils % 1 % (0-3) Toxic Vacuolation Slight Platelet Estimate Adequate (ADEQUATE) Prothrombin Time 12.9 SEC (11.7-14.0) Prothromb Time International Ratio 1.0 (0.8-1.1) Activated Partial Thromboplast Time 29 SEC (24-38) D-Dimer (Jennifer) 1.03 ug/mlFEU (0.00-0.50) Sodium Level 138 mmol/L (136-145) Potassium Level 6.4 mmol/L (3.5-5.1) Chloride Level 105 mmol/L (98-107) Carbon Dioxide Level 21 mmol/L (21-32) Anion Gap 12 (6-14) Blood Urea Nitrogen 50 mg/dL (8-26) Creatinine 3.0 mg/dL (0.7-1.3) Estimated GFR (Cockcroft-Gault) 22.1 BUN/Creatinine Ratio 17 (6-20) Glucose Level 255 mg/dL (70-99) Lactic Acid Level 3.6 mmol/L (0.4-2.0) 2.2 mmol/L (0.4-2.0) Calcium Level 8.9 mg/dL (8.5-10.1) Total Bilirubin 0.6 mg/dL (0.2-1.0) Aspartate Amino Transf (AST/SGOT) 20 U/L (15-37) Alanine Aminotransferase (ALT/SGPT) 15 U/L (16-63) Alkaline Phosphatase 73 U/L (46-116) Creatine Kinase 98 U/L (39-308) 73 U/L (39-308) 78 U/L (39-308) Creatine Kinase MB (Mass) 3.1 ng/mL (0.0-3.6) 2.4 ng/mL (0.0-3.6) 2.6 ng/mL (0.0-3.6) Creatine Kinase MB Relative Index 3.2 % (0-4) 3.3 % (0-4) 3.3 % (0-4) Troponin I Quantitative 0.284 ng/mL (0.000-0.055) 0.339 ng/mL (0.000-0.055) 0.420 ng/mL (0.000-0.055) DE-Ent-K-Type Natriuretic Peptide 4473 pg/mL (0-124) Total Protein 7.2 g/dL (6.4-8.2) Albumin 3.1 g/dL (3.4-5.0) Albumin/Globulin Ratio 0.8 (1.0-1.7) Assessment and Plan Assessmemt and Plan Problems Medical Problems: (1) D-dimer, elevated Status: Acute (2) Elevated troponin Status: Acute (3) Hyperkalemia Status: Acute (4) Pneumonia Status: Acute (5) Sepsis Status: Acute Comment Review of Relevant I have reviewed the following items gavin (where applicable) has been applied. Labs Laboratory Tests Test 03/17/19 14:26 03/17/19 16:00 03/17/19 18:00 White Blood Count 16.4 x10^3/uL (4.0-11.0) Red Blood Count 4.38 x10^6/uL (4.30-5.70) Hemoglobin 12.6 g/dL (13.0-17.5) Hematocrit 38.5 % (39.0-53.0) Mean Corpuscular Volume 88 fL (79-100) Mean Corpuscular Hemoglobin 29 pg (25-35) Mean Corpuscular Hemoglobin Concent 33 g/dL (31-37) Red Cell Distribution Width 15.1 % (11.5-14.5) Platelet Count 162 x10^3/uL (140-400) Neutrophils (%) (Auto) 93 % (31-73) Lymphocytes (%) (Auto) 2 % (24-48) Monocytes (%) (Auto) 5 % (0-9) Eosinophils (%) (Auto) 0 % (0-3) Basophils (%) (Auto) 0 % (0-3) Neutrophils # (Auto) 15.2 x10^3/uL (1.8-7.7) Lymphocytes # (Auto) 0.3 x10^3/uL (1.0-4.8) Monocytes # (Auto) 0.8 x10^3/uL (0.0-1.1) Eosinophils # (Auto) 0.0 x10^3/uL (0.0-0.7) Basophils # (Auto) 0.0 x10^3/uL (0.0-0.2) Segmented Neutrophils % 73 % (35-66) Band Neutrophils % 19 % (0-9) Lymphocytes % 3 % (24-48) Monocytes % 4 % (0-10) Basophils % 1 % (0-3) Toxic Vacuolation Slight Platelet Estimate Adequate (ADEQUATE) Prothrombin Time 12.9 SEC (11.7-14.0) Prothromb Time International Ratio 1.0 (0.8-1.1) Activated Partial Thromboplast Time 29 SEC (24-38) D-Dimer (Jennifer) 1.03 ug/mlFEU (0.00-0.50) Sodium Level 138 mmol/L (136-145) Potassium Level 6.4 mmol/L (3.5-5.1) Chloride Level 105 mmol/L (98-107) Carbon Dioxide Level 21 mmol/L (21-32) Anion Gap 12 (6-14) Blood Urea Nitrogen 50 mg/dL (8-26) Creatinine 3.0 mg/dL (0.7-1.3) Estimated GFR (Cockcroft-Gault) 22.1 BUN/Creatinine Ratio 17 (6-20) Glucose Level 255 mg/dL (70-99) Lactic Acid Level 3.6 mmol/L (0.4-2.0) 2.2 mmol/L (0.4-2.0) Calcium Level 8.9 mg/dL (8.5-10.1) Total Bilirubin 0.6 mg/dL (0.2-1.0) Aspartate Amino Transf (AST/SGOT) 20 U/L (15-37) Alanine Aminotransferase (ALT/SGPT) 15 U/L (16-63) Alkaline Phosphatase 73 U/L (46-116) Creatine Kinase 98 U/L (39-308) 73 U/L (39-308) 78 U/L (39-308) Creatine Kinase MB (Mass) 3.1 ng/mL (0.0-3.6) 2.4 ng/mL (0.0-3.6) 2.6 ng/mL (0.0-3.6) Creatine Kinase MB Relative Index 3.2 % (0-4) 3.3 % (0-4) 3.3 % (0-4) Troponin I Quantitative 0.284 ng/mL (0.000-0.055) 0.339 ng/mL (0.000-0.055) 0.420 ng/mL (0.000-0.055) CW-Vvv-P-Type Natriuretic Peptide 4473 pg/mL (0-124) Total Protein 7.2 g/dL (6.4-8.2) Albumin 3.1 g/dL (3.4-5.0) Albumin/Globulin Ratio 0.8 (1.0-1.7) Laboratory Tests Test 03/17/19 14:26 03/17/19 16:00 03/17/19 18:00 White Blood Count 16.4 x10^3/uL (4.0-11.0) Red Blood Count 4.38 x10^6/uL (4.30-5.70) Hemoglobin 12.6 g/dL (13.0-17.5) Hematocrit 38.5 % (39.0-53.0) Mean Corpuscular Volume 88 fL (79-100) Mean Corpuscular Hemoglobin 29 pg (25-35) Mean Corpuscular Hemoglobin Concent 33 g/dL (31-37) Red Cell Distribution Width 15.1 % (11.5-14.5) Platelet Count 162 x10^3/uL (140-400) Neutrophils (%) (Auto) 93 % (31-73) Lymphocytes (%) (Auto) 2 % (24-48) Monocytes (%) (Auto) 5 % (0-9) Eosinophils (%) (Auto) 0 % (0-3) Basophils (%) (Auto) 0 % (0-3) Neutrophils # (Auto) 15.2 x10^3/uL (1.8-7.7) Lymphocytes # (Auto) 0.3 x10^3/uL (1.0-4.8) Monocytes # (Auto) 0.8 x10^3/uL (0.0-1.1) Eosinophils # (Auto) 0.0 x10^3/uL (0.0-0.7) Basophils # (Auto) 0.0 x10^3/uL (0.0-0.2) Segmented Neutrophils % 73 % (35-66) Band Neutrophils % 19 % (0-9) Lymphocytes % 3 % (24-48) Monocytes % 4 % (0-10) Basophils % 1 % (0-3) Toxic Vacuolation Slight Platelet Estimate Adequate (ADEQUATE) Prothrombin Time 12.9 SEC (11.7-14.0) Prothromb Time International Ratio 1.0 (0.8-1.1) Activated Partial Thromboplast Time 29 SEC (24-38) D-Dimer (Jennifer) 1.03 ug/mlFEU (0.00-0.50) Sodium Level 138 mmol/L (136-145) Potassium Level 6.4 mmol/L (3.5-5.1) Chloride Level 105 mmol/L (98-107) Carbon Dioxide Level 21 mmol/L (21-32) Anion Gap 12 (6-14) Blood Urea Nitrogen 50 mg/dL (8-26) Creatinine 3.0 mg/dL (0.7-1.3) Estimated GFR (Cockcroft-Gault) 22.1 BUN/Creatinine Ratio 17 (6-20) Glucose Level 255 mg/dL (70-99) Lactic Acid Level 3.6 mmol/L (0.4-2.0) 2.2 mmol/L (0.4-2.0) Calcium Level 8.9 mg/dL (8.5-10.1) Total Bilirubin 0.6 mg/dL (0.2-1.0) Aspartate Amino Transf (AST/SGOT) 20 U/L (15-37) Alanine Aminotransferase (ALT/SGPT) 15 U/L (16-63) Alkaline Phosphatase 73 U/L (46-116) Creatine Kinase 98 U/L (39-308) 73 U/L (39-308) 78 U/L (39-308) Creatine Kinase MB (Mass) 3.1 ng/mL (0.0-3.6) 2.4 ng/mL (0.0-3.6) 2.6 ng/mL (0.0-3.6) Creatine Kinase MB Relative Index 3.2 % (0-4) 3.3 % (0-4) 3.3 % (0-4) Troponin I Quantitative 0.284 ng/mL (0.000-0.055) 0.339 ng/mL (0.000-0.055) 0.420 ng/mL (0.000-0.055) BA-Mli-Z-Type Natriuretic Peptide 4473 pg/mL (0-124) Total Protein 7.2 g/dL (6.4-8.2) Albumin 3.1 g/dL (3.4-5.0) Albumin/Globulin Ratio 0.8 (1.0-1.7) Medications Current Medications Aspirin (Children'S Aspirin) 324 mg 1X STAT PO Last administered on 03/17/19at 14:31; Start 03/17/19 at 14:11; Stop 03/17/19 at 14:13; Status DC Levofloxacin/ Dextrose 150 ml @ 100 mls/hr 1X ONCE IV Last administered on 03/17/19at 15:52; Start 03/17/19 at 15:15; Stop 03/17/19 at 16:44; Status DC Cefepime HCl (Maxipime) 2 gm 1X ONCE IVP Last administered on 03/17/19at 15:47; Start 03/17/19 at 15:15; Stop 03/17/19 at 15:16; Status DC Vancomycin HCl 2 gm/Sodium Chloride 500 ml @ 250 mls/hr 1X ONCE IV Last administered on 03/17/19at 18:44; Start 03/17/19 at 16:00; Stop 03/17/19 at 17:59; Status DC Calcium Gluconate (Calcium Gluconate) 1,000 mg 1X STAT IVP ; Start 03/17/19 at 15:27; Stop 03/17/19 at 15:28; Status UNV Calcium Gluconate (Calcium Gluconate) 1,000 mg 1X IVP Last administered on 03/17/19at 15:42; Start 03/17/19 at 15:35 Calcium Gluconate (Calcium Gluconate) 1,000 mg 1X IVP ; Start 03/17/19 at 15:40; Status UNV Insulin Human Regular (HumuLIN R VIAL) 10 unit 1X STAT IV Last administered on 03/17/19at 15:53; Start 03/17/19 at 15:27; Stop 03/17/19 at 15:32; Status DC Dextrose (Dextrose 50%-Water Syringe) 25 gm 1X STAT IV Last administered on 03/17/19 15:50; Start 03/17/19 at 15:27; Stop 03/17/19 at 15:32; Status DC Sodium Polystyrene Sulfonate (Kayexalate) 15 gm 1X STAT PO Last administered on 03/17/19 15:50; Start 03/17/19 at 15:27; Stop 03/17/19 at 15:32; Status DC Calcium Gluconate (Calcium Gluconate) 1,000 mg 1X ONCE IV Last administered on 03/17/19 16:44; Start 03/17/19 at 16:15; Stop 03/17/19 at 16:16; Status DC Calcium Gluconate (Calcium Gluconate) 1,000 mg 1X ONCE IV Last administered on 03/17/19 16:44; Start 03/17/19 at 16:20; Stop 03/17/19 at 16:21; Status DC Fentanyl Citrate (Fentanyl 2ml Vial) 75 mcg 1X ONCE IV Last administered on 03/17/19 17:05; Start 03/17/19 at 17:00; Stop 03/17/19 at 17:01; Status DC Aspirin (Ecotrin) 81 mg DAILYWBKFT PO Last administered on 03/17/19 21:12; Start 03/17/19 at 19:30 Atorvastatin Calcium (Lipitor) 40 mg QHS PO Last administered on 03/17/19 21:12; Start 03/17/19 at 21:00 Clopidogrel Bisulfate (Plavix) 75 mg DAILYWBKFT PO Last administered on 03/17/19 21:14; Start 03/17/19 at 19:30 Cyclobenzaprine HCl (Flexeril) 10 mg PRN TID PRN PO MUSCLE SPASMS; Start 03/17/19 at 18:30 Furosemide (Lasix) 40 mg BID94 PO Last administered on 03/17/19 21:12; Start 03/17/19 at 19:00 Gabapentin (Neurontin) 300 mg BID PO Last administered on 03/17/19 21:12; Start 03/17/19 at 21:00 Labetalol HCl (Trandate) 100 mg BID PO Last administered on 03/17/19 21:13; Start 03/17/19 at 21:00 Spironolactone (Aldactone) 25 mg DAILY PO Last administered on 03/17/19 21:12; Start 03/17/19 at 19:30 Temazepam (Restoril) 30 mg QHS PO Last administered on 03/17/19 21:13; Start 03/17/19 at 21:00 Trazodone HCl (Desyrel) 50 mg QHS PO Last administered on 03/17/19 21:13; Start 03/17/19 at 21:00 Amitriptyline HCl (Elavil) 100 mg QHS PO ; Start 03/17/19 at 21:00; Status UNV Glimepiride (Amaryl) 4 mg BID PO Last administered on 03/17/19 21:13; Start 03/17/19 at 21:00 Acetaminophen/ Hydrocodone Bitart (Lortab 7.5/325) 1 tab PRN Q6HRS PRN PO PAIN; Start 03/17/19 at 18:45; Stop 03/17/19 at 18:41; Status DC Pantoprazole Sodium (Protonix) 40 mg BIDAC PO Last administered on 03/17/19 21:14; Start 03/17/19 at 19:30 Ropinirole HCl (Requip) 0.5 mg QHS PO Last administered on 03/17/19 21:12; Start 03/17/19 at 21:00 Sacubitril/ Valsartan (Entresto 49 Mg-51 Mg) 2 tab BID PO Last administered on 03/17/19 21:11; Start 03/17/19 at 21:00 Linagliptin (Tradjenta) 5 mg DAILY PO Last administered on 03/17/19 21:12; S tart 03/17/19 at 19:30 Non-Formulary Medication ([Aspirin] ) 325 mg DAILYWBKFT PO ; Start 03/18/19 at 08:00; Status UNV Acetaminophen/ Hydrocodone Bitart (Lortab 10/325) 1 tab PRN Q6HRS PRN PO PAIN; Start 03/17/19 at 18:45 Enoxaparin Sodium (Lovenox 100mg Syringe) 90 mg QHS SQ Last administered on 03/17/19 21:15; Start 03/17/19 at 21:00 Active Scripts Active Trazodone Hcl 50 Mg Tablet 1 Tab PO QHS Furosemide 40 Mg Tablet 40 Mg PO [id number] Aspirin Ec (Aspirin) 81 Mg Tablet.dr 81 Mg PO DAILYWBKFT 60 Days Atorvastatin Calcium 40 Mg Tablet 40 Mg PO QHS 30 Days Glimepiride 4 Mg Tablet 1 Tab PO BID Plavix (Clopidogrel Bisulfate) 75 Mg Tablet 75 Mg PO DAILYWBKFT [Aspirin] 325 MG Tablet 325 Mg PO DAILYWBKFT Januvia (Sitagliptin Phosphate) 100 Mg Tablet 1 Tab PO DAILY Reported Labetalol Hcl 100 Mg Tablet 1 Tab PO BID Protonix (Pantoprazole Sodium) 20 Mg Tablet.dr 2 Tab PO BID Entresto 97 mg-103 mg Tablet (Sacubitril/Valsartan) 1 Each Tablet 1 Each PO BID Gabapentin 300 Mg Capsule 300 Mg PO BID Temazepam 30 Mg Capsule 1 Cap PO QHS Potassium Chloride 20 Meq Tablet.er 20 Meq PO DAILY Spironolactone 25 Mg Tablet 1 Tab PO DAILY Cyclobenzaprine Hcl 10 Mg Tablet 1 Tab PO TID PRN Ropinirole Hcl 2 Mg Tablet 0.5 Mg PO QHS Hydrocodone-Apap 10-300 (Hydrocodone Bit/Acetaminophen) 1 Each Tablet 1 Tab PO Q6HRS PRN Amitriptyline Hcl 100 Mg Tablet 1 Tab PO QHS Vitals/I & O Vital Sign - Last 24 Hours 03/17/19 03/17/19 03/17/19 03/17/19 13:59 14:27 14:52 15:22 Temp 97.6 97.6 Pulse 93 94 92 92 Resp B/P (MAP) 148/82 (104) 145/72 (96) 136/85 (102) 140/70 (93) Pulse Ox 89 94 94 92 O2 Delivery Room Air Nasal Cannula Nasal Cannula Room Air O2 Flow Rate 2.0 2.0 03/17/19 03/17/19 03/17/19 03/17/19 15:52 16:38 17:15 19:12 Pulse 90 90 Resp 22 20 B/P (MAP) 151/80 (103) 175/80 (111) Pulse Ox 93 93 93 O2 Delivery Room Air Room Air Room Air Room Air O2 Flow Rate 2.0 03/17/19 03/17/19 03/17/19 03/17/19 19:43 20:00 21:11 21:13 Temp 98.4 98.4 Pulse 89 89 89 Resp 16 B/P (MAP) 149/75 (99) 149/75 149/75 Pulse Ox 95 O2 Delivery Room Air Room Air 03/17/19 03/18/19 23:20 02:53 Temp 99.8 98.6 99.8 98.6 Pulse 100 95 Resp 18 20 B/P (MAP) 158/83 (108) 133/75 (94) Pulse Ox 96 95 O2 Delivery Room Air Room Air Intake and Output 03/17/19 03/17/19 03/18/19 15:00 23:00 07:00 Intake Total 1130 ml 910 ml Balance 1130 ml 910 ml FRANNY ROJAS MD Mar 18, 2019 07:28
[2019-03-18] MEDS ORDERED: ASPIRIN 325 MG PO SCH (08:00)
[2019-03-18 08:28] LABS: BASO % 0 % (0-3); EOS # 0.1 x10^3/uL (0.0-0.7); EOS % 0 % (0-3); HEMATOCRIT 35.8 % (39.0-53.0); HEMOGLOBIN 11.8 g/dL (13.0-17.5); LYMPH # 0.8 x10^3/uL (1.0-4.8); LYMPH % 5 % (24-48); MEAN CORPUSCULAR HEMOGLOBIN 29 pg (25-35); MEAN CORPUSCULAR HGB CONC 33 g/dL (31-37); MEAN CORPUSCULAR VOLUME 87 fL (79-100); MONO # 0.8 x10^3/uL (0.0-1.1); MONO % 5 % (0-9); NEUT # 13.9 x10^3/uL (1.8-7.7); NEUT % 89 % (31-73); PLATELET COUNT 148 x10^3/uL (140-400); RED BLOOD COUNT 4.11 x10^6/uL (4.30-5.70); RED CELL DISTRIBUTION WIDTH 15.2 % (11.5-14.5); WHITE BLOOD COUNT 15.7 x10^3/uL (4.0-11.0)
[2019-03-18] MEDS ORDERED: ANTI-COAG MONITOR BY PHARMACY. MC PRN (08:30)
[2019-03-18] MEDS: ASPIRIN ENTERIC COATED 81 MG TABLET.DR. PO SCH (08:44)
[2019-03-18] MEDS: CLOPIDOGREL BISULFATE 75 MG TABLET PO SCH (08:44)
--- NOTE | 2019-03-18 08:44 | PDOC ---
Provider Note Provider Note Pt seen and examined ID consult dictated IMP: Pneumonia,possible aspiration D dimer elevated with abn VQ scan DM LEATHA on CKD Hyperkalemia REC abx as ordered f/u cult and labs Thank you AURELIA SRIVASTAVA MD Mar 18, 2019 08:43
[2019-03-18] MEDS: LINAGLIPTIN 5 MG TABLET PO SCH (08:45)
[2019-03-18] MEDS: HYDROcodone/APAP 10/325 1 TAB TABLET PO PRN ×3 (08:45→21:50)
[2019-03-18] MEDS: PANTOPRAZOLE 40 MG TABLET.DR. PO SCH ×2 (08:45→15:06)
[2019-03-18] MEDS: GLIMEPIRIDE 2 MG TABLET. PO SCH ×2 (08:45→21:49)
[2019-03-18] MEDS ORDERED: PIP/TAZO PER PHARMACY MC PRN (08:45)
[2019-03-18] MEDS: GABAPENTIN 300 MG CAPSULE. PO SCH ×2 (08:45→21:48)
[2019-03-18] MEDS: LABETALOL HCL 100 MG TABLET. PO SCH ×2 (08:45→21:50)
[2019-03-18] MEDS: FUROSEMIDE 40 MG TABLET. PO SCH ×2 (08:46→15:06)
[2019-03-18] MEDS: SACUBITRIL/VALSARTAN 49/51MG TABLET. PO SCH ×2 (08:46→21:49)
[2019-03-18] MEDS: SPIRONOLACTONE 25 MG TABLET PO SCH (08:46)
[2019-03-18 08:49] LABS: ALBUMIN 2.4 g/dL (3.4-5.0); ALBUMIN/GLOBULIN RATIO 0.6 (1.0-1.7); CALCIUM 8.7 mg/dL (8.5-10.1); CREATININE 2.7 mg/dL (0.7-1.3); GFR 24.9; TOTAL BILIRUBIN 0.4 mg/dL (0.2-1.0); TOTAL PROTEIN 6.1 g/dL (6.4-8.2)
--- NOTE | 2019-03-18 08:50 | PDOC2 ---
CARDIAC CONSULT DATE OF CONSULT Date of Consult DATE: 03/18/19 TIME: 08:42 REASON FOR CONSULT Reason for Consult: elevated troponin REFERRING PHYSICIAN Referring Physician: Fullbright SOURCE Source: Chart review, Patient HISTORY OF PRESENT ILLNESS HISTORY OF PRESENT ILLNESS This is a pleasant 53 yo male admitted for complains of shortness of breath. He has been having SOA in the last 3 days with nonproductive cough. Positive for chills. He also has been having frequent heart burn and at times food feels like it gets stuck and end up vomiting and has been having intermittent epigastric pain. Denies any chest pain or palpitations. He also has leg swelling. Verbalized no more recreational drug use but was recently noted with cocaine from previous [facility] admission. Verbalized med compliance and has been taking lasix. To add he was also at [facility] 03/01 admitted over there due to syncope from dehydration and noted with cocaine use. PAST MEDICAL HISTORY Past Medical History Cardiovascular: CAD, CHF, HTN, Hyperlipidemia, Other (cardiomyopathy; LVEF 25% by echo 07/23/2014), syncope Pulmonary: Other (PHYLLIS) CENTRAL NERVOUS SYSTEM: Other (RLS), CVA GI: GERD Psych: Depression Musculoskeletal: Osteoarthritis, Other (chronic pain syndrome) Renal/: Chronic renal insuff Endocrine: Diabetes (2) Dermatology: Eczema PAST SURGICAL HISTORY Past Surgical History Tonsillectomy, Other (left ankle), PCI/BMS to LAD/RCA FAMILY HISTORY Family History Coronary Artery Disease (Brother in his 40s) SOCIAL HISTORY Smoke: No ALCOHOL: none Drugs: None Lives: with Family CURRENT MEDICATIONS CURRENT MEDICATIONS Current Medications Medications (Trade) Dose Ordered Sig/Jerri Route PRN Reason Start Time Stop Time Status Last Admin Dose Admin Aspirin (Children'S Aspirin) 324 mg 1X STAT PO 03/17/19 14:11 03/17/19 14:13 DC 03/17/19 14:31 Levofloxacin/ Dextrose 150 ml @ 100 mls/hr 1X ONCE IV 03/17/19 15:15 03/17/19 16:44 DC 03/17/19 15:52 Cefepime HCl (Maxipime) 2 gm 1X ONCE IVP 03/17/19 15:15 03/17/19 15:16 DC 03/17/19 15:47 Vancomycin HCl 2 gm/Sodium Chloride 500 ml @ 250 mls/hr 1X ONCE IV 03/17/19 16:00 03/17/19 17:59 DC 03/17/19 18:44 Calcium Gluconate (Calcium Gluconate) 1,000 mg 1X IVP 03/17/19 15:35 03/17/19 15:42 Insulin Human Regular (HumuLIN R VIAL) 10 unit 1X STAT IV 03/17/19 15:27 03/17/19 15:32 DC 03/17/19 15:53 Dextrose (Dextrose 50%-Water Syringe) 25 gm 1X STAT IV 03/17/19 15:27 03/17/19 15:32 DC 03/17/19 15:50 Sodium Polystyrene Sulfonate (Kayexalate) 15 gm 1X STAT PO 03/17/19 15:27 03/17/19 15:32 DC 03/17/19 15:50 Calcium Gluconate (Calcium Gluconate) 1,000 mg 1X ONCE IV 03/17/19 16:15 03/17/19 16:16 DC 03/17/19 16:44 Calcium Gluconate (Calcium Gluconate) 1,000 mg 1X ONCE IV 03/17/19 16:20 03/17/19 16:21 DC 03/17/19 16:44 Fentanyl Citrate (Fentanyl 2ml Vial) 75 mcg 1X ONCE IV 03/17/19 17:00 03/17/19 17:01 DC 03/17/19 17:05 Aspirin (Ecotrin) 81 mg DAILYWBKFT PO 03/17/19 19:30 03/17/19 21:12 Atorvastatin Calcium (Lipitor) 40 mg QHS PO 03/17/19 21:00 03/17/19 21:12 Clopidogrel Bisulfate (Plavix) 75 mg DAILYWBKFT PO 03/17/19 19:30 03/17/19 21:14 Furosemide (Lasix) 40 mg BID94 PO 03/17/19 19:00 03/17/19 21:12 Gabapentin (Neurontin) 300 mg BID PO 03/17/19 21:00 03/17/19 21:12 Labetalol HCl (Trandate) 100 mg BID PO 03/17/19 21:00 03/17/19 21:13 Spironolactone (Aldactone) 25 mg DAILY PO 03/17/19 19:30 03/17/19 21:12 Temazepam (Restoril) 30 mg QHS PO 03/17/19 21:00 03/17/19 21:13 Trazodone HCl (Desyrel) 50 mg QHS PO 03/17/19 21:00 03/17/19 21:13 Glimepiride (Amaryl) 4 mg BID PO 03/17/19 21:00 03/17/19 21:13 Pantoprazole Sodium (Protonix) 40 mg BIDAC PO 03/17/19 19:30 03/17/19 21:14 Ropinirole HCl (Requip) 0.5 mg QHS PO 03/17/19 21:00 03/17/19 21:12 Sacubitril/ Valsartan (Entresto 49 Mg-51 Mg) 2 tab BID PO 03/17/19 21:00 03/17/19 21:11 Linagliptin (Tradjenta) 5 mg DAILY PO 03/17/19 19:30 03/17/19 21:12 Enoxaparin Sodium (Lovenox 100mg Syringe) 90 mg QHS SQ 03/17/19 21:00 03/17/19 21:15 ALLERGIES ALLERGIES: Coded Allergies: No Known Drug Allergies (Unverified , 07/22/14) PHYSICAL EXAM General: Alert, Oriented X3, Cooperative HEENT: Atraumatic, Mucous membr. moist/pink Lungs: Other (left basilar crackles with basilar wheeze) Heart: Regular rate (SR), Normal S1, Normal S2, Other (2/6 systolic murmur to LLS border) Abdomen: Soft, No tenderness Extremities: No cyanosis, Other (2+bilateral LE pitting edema) Skin: No breakdown, No significant lesion Neuro: Normal speech, Sensation intact Psych/Mental Status: Mental status NL, Mood NL MUSCULOSKELETAL: Osteoarthritic changes both hands VITALS/I&O VITALS/I&O: Vital Signs Date Time Temp Pulse Resp B/P (MAP) Pulse Ox O2 Delivery O2 Flow Rate FiO2 03/18/19 02:53 98.6 95 20 133/75 (94) 95 Room Air 98.6 03/17/19 19:12 2.0 I & O 03/17/19 03/17/19 03/18/19 15:00 23:00 07:00 Intake Total 1130 ml 910 ml Balance 1130 ml 910 ml LABS Lab: Laboratory Tests Test 03/17/19 14:26 03/17/19 16:00 10/23/19 18:00 03/18/19 08:05 White Blood Count 16.4 x10^3/uL (4.0-11.0) H 15.7 x10^3/uL (4.0-11.0) H Red Blood Count 4.38 x10^6/uL (4.30-5.70) 4.11 x10^6/uL (4.30-5.70) L Hemoglobin 12.6 g/dL (13.0-17.5) L 11.8 g/dL (13.0-17.5) L Hematocrit 38.5 % (39.0-53.0) L 35.8 % (39.0-53.0) L Mean Corpuscular Volume 88 fL (79-100) 87 fL (79-100) Mean Corpuscular Hemoglobin 29 pg (25-35) 29 pg (25-35) Mean Corpuscular Hemoglobin Concent 33 g/dL (31-37) 33 g/dL (31-37) Red Cell Distribution Width 15.1 % (11.5-14.5) H 15.2 % (11.5-14.5) H Platelet Count 162 x10^3/uL (140-400) 148 x10^3/uL (140-400) Neutrophils (%) (Auto) 93 % (31-73) H 89 % (31-73) H Lymphocytes (%) (Auto) 2 % (24-48) L 5 % (24-48) L Monocytes (%) (Auto) 5 % (0-9) 5 % (0-9) Eosinophils (%) (Auto) 0 % (0-3) 0 % (0-3) Basophils (%) (Auto) 0 % (0-3) 0 % (0-3) Neutrophils # (Auto) 15.2 x10^3/uL (1.8-7.7) H 13.9 x10^3/uL (1.8-7.7) H Lymphocytes # (Auto) 0.3 x10^3/uL (1.0-4.8) L 0.8 x10^3/uL (1.0-4.8) L Monocytes # (Auto) 0.8 x10^3/uL (0.0-1.1) 0.8 x10^3/uL (0.0-1.1) Eosinophils # (Auto) 0.0 x10^3/uL (0.0-0.7) 0.1 x10^3/uL (0.0-0.7) Basophils # (Auto) 0.0 x10^3/uL (0.0-0.2) 0.0 x10^3/uL (0.0-0.2) Segmented Neutrophils % 73 % (35-66) H Band Neutrophils % 19 % (0-9) H Lymphocytes % 3 % (24-48) L Monocytes % 4 % (0-10) Basophils % 1 % (0-3) Toxic Vacuolation Slight Platelet Estimate Adequate (ADEQUATE) Prothrombin Time 12.9 SEC (11.7-14.0) Prothrombin Time INR 1.0 (0.8-1.1) Activated Partial Thromboplast Time 29 SEC (24-38) D-Dimer (Jennifer) 1.03 ug/mlFEU (0.00-0.50) H Sodium Level 138 mmol/L (136-145) Potassium Level 6.4 mmol/L (3.5-5.1) *H Chloride Level 105 mmol/L (98-107) Carbon Dioxide Level 21 mmol/L (21-32) Anion Gap 12 (6-14) Blood Urea Nitrogen 50 mg/dL (8-26) H Creatinine 3.0 mg/dL (0.7-1.3) H Estimated GFR (Cockcroft-Gault) 22.1 BUN/Creatinine Ratio 17 (6-20) Glucose Level 255 mg/dL (70-99) H Lactic Acid Level 3.6 mmol/L (0.4-2.0) H 2.2 mmol/L (0.4-2.0) H Calcium Level 8.9 mg/dL (8.5-10.1) Total Bilirubin 0.6 mg/dL (0.2-1.0) Aspartate Amino Transferase (AST) 20 U/L (15-37) Alanine Aminotransferase (ALT) 15 U/L (16-63) L Alkaline Phosphatase 73 U/L (46-116) Creatine Kinase 98 U/L (39-308) 73 U/L (39-308) 78 U/L (39-308) Creatine Kinase MB (Mass) 3.1 ng/mL (0.0-3.6) 2.4 ng/mL (0.0-3.6) 2.6 ng/mL (0.0-3.6) Creatine Kinase MB Relative Index 3.2 % (0-4) 3.3 % (0-4) 3.3 % (0-4) Troponin I Quantitative 0.284 ng/mL (0.000-0.055) 0.339 ng/mL (0.000-0.055) 0.420 ng/mL (0.000-0.055) CI-Vsg-C-Type Natriuretic Peptide 4473 pg/mL (0-124) H Total Protein 7.2 g/dL (6.4-8.2) Albumin 3.1 g/dL (3.4-5.0) L Albumin/Globulin Ratio 0.8 (1.0-1.7) L Laboratory Tests 03/17/19 14:26 03/18/19 08:05 Laboratory Tests 03/17/19 14:26 ECHOCARDIOGRAM ECHOCARDIOGRAM <Conclusion> The left ventricular systolic function is moderately impaired. The Ejection Fraction is 30-35%. Transmitral Doppler flow pattern is Grade I-abnormal relaxation pattern. Trace mitral regurgitation. Trace tricuspid regurgitation. The PA pressure was estimated at 20 mmHg. There is no evidence of significant pericardial effusion. DATE: 02/11/19 1352 STRESS TEST STRESS TEST Conclusion 1. No evidence of EKG changes to suggest ischemia with vasodilator testing. 2. Normal perfusion at stress/rest. 3. Mild LV dysfunction. EF 50% 4. Low to moderate risk for future CV events based on lower EF. DATE: 04/22/17 1306 HEART CATH HEART CATH Findings. Hemodynamics. Left ventricular pressure of 136/26, aortic root pressure 134/88. Coronaries. Left main. The left main had no lesions. Left anterior descending. The LAD had a mid 90% lesion. Left circumflex. The left circumflex had no lesions. Right coronary artery. The right coronary had a mid diffusely diseased lesion up to 80%. There was a second mid to distal lesion of 85%. <Conclusion> 2 vessel coronary artery disease. Successful stenting of the mid LAD decreasing a 90% lesion to 0%. Successful stenting of a distal right coronary artery lesion of 85% to 0% and a mid right coronary lesion of 80% to 0%. Bare-metal stents were placed. DATE: 03/08/15 2467 ASSESSMENT/PLAN ASSESSMENT/PLAN 1. Acute respiratory failure with pneumonia/sepsis with associated CM/CHF 2. Cardiomyopathy: recent EF 30-35%, combined NICM/ICM 3. Acute on chronic systolic CHF: mild. and currently compensated 4. LEATHA on CKD with hyperkalemia: improved 5. Elevated troponin: peaked at 0.4 consistent with type 2, demand mediated by culprits above. CP free 6. Chronic pain syndrome: on chronic opioid and benzo use 7. HTN: controlled 8. DM2/HLP: per PCP 9. CAD: PCI/BMS to LAD/RCA 10..GERD exacerbation with intermittent sensation of food entrapment: per PCP 11. Hx of Noncompliance: due to financial constraints. Utilizes outreach clinics 12. Hx of cocaine abuse: recently noted on 03/01 Recommendations 1. UDS 2. Start on PPI 3. Continue lasix therapy. Secondary prevention measures. 4. Will consider for outpt stress test if he would comply and be abstinent with recreational drugs. 5. Nephrology/Pulmonary consult. 6. Supportive care. GABRIEL CHOPRA CARTOON ANIMATOR Mar 18, 2019 08:50
[2019-03-18 08:57] LABS: POTASSIUM 4.7 mmol/L (3.5-5.1)
[2019-03-18] MEDS: PIPERACILLIN/TAZOBACTAM 3.375 GM in IV NORMAL SALINE 50ML 50 ML IV SCH ×2 (09:07→17:38)
[2019-03-18] MEDS: DOXYCYCLINE HYCLATE 100 MG TABLET PO SCH ×2 (09:07→21:49)
[2019-03-18] MEDS: LINEZOLID 600 MG TABLET PO SCH ×2 (09:07→21:50)
--- NOTE | 2019-03-18 09:41 | PDOC2 ---
CONSULT Date of Consult Date of Consult DATE: 03/18/19 TIME: 09:26 Reason for Consult Reason for Consult: [email or web address] Source Source: Chart review, Patient History of Present Illness Reason for Visit: A 53-year-old male, presented to the ER on 03/17/2019 with complaints of fever, shortness of breath, chest pain, cough with sputum production. The patient had epigastric pain after he felt like some food was stuck in the chest. He started having worsening shortness of breath and cough. He was admitted at [facility] for syncopal episode a week ago. Pt is 53 yo CM with diabetes, hypertension, CVA with left-sided facial droop and some upper extremity weakness, CKD C/O fever and Shortness of breath He started having more tremors since the onset of this illness. Denies any nausea, vomiting, diarrhea, abdominal pain, no urinary complaints. Has not scheduled OP nephrology appt. Denies NSAID use CxR- showed bilateral pulmonary infiltrate , elevated WBC and lactic acidosis , elevated K Pulmonary perfusion imaging - showed a large triple-match within the left lung, healed intermediate probability of pulmonary embolism . Past Medical History Cardiovascular: CAD, CHF, HTN, Hyperlipidemia, Other Pulmonary: Other CENTRAL NERVOUS SYSTEM: Other GI: GERD Psych: Depression Musculoskeletal: Osteoarthritis, Other Infectious disease: No pertinent hx Renal/: Chronic renal insuff Endocrine: Diabetes Past Surgical History Past Surgical History: Tonsillectomy, Other Family History Family History: Coronary Artery Disease Social History No ALCOHOL: none Drugs: None Lives: with Family Current Problem List Problem List Problems Medical Problems: (1) D-dimer, elevated Status: Acute (2) Elevated troponin Status: Acute (3) Hyperkalemia Status: Acute (4) Pneumonia Status: Acute (5) Sepsis Status: Acute Current Medications Current Medications Current Medications Aspirin (Children'S Aspirin) 324 mg 1X STAT PO Last administered on 03/17/19at 14:31; Start 03/17/19 at 14:11; Stop 03/17/19 at 14:13; Status DC Levofloxacin/ Dextrose 150 ml @ 100 mls/hr 1X ONCE IV Last administered on 03/17/19at 15:52; Start 03/17/19 at 15:15; Stop 03/17/19 at 16:44; Status DC Cefepime HCl (Maxipime) 2 gm 1X ONCE IVP Last administered on 03/17/19at 15:47; Start 03/17/19 at 15:15; Stop 03/17/19 at 15:16; Status DC Vancomycin HCl 2 gm/Sodium Chloride 500 ml @ 250 mls/hr 1X ONCE IV Last administered on 03/17/19at 18:44; Start 03/17/19 at 16:00; Stop 03/17/19 at 17:59; Status DC Calcium Gluconate (Calcium Gluconate) 1,000 mg 1X STAT IVP ; Start 03/17/19 at 15:27; Stop 03/17/19 at 15:28; Status UNV Calcium Gluconate (Calcium Gluconate) 1,000 mg 1X IVP Last administered on 03/17/19at 15:42; Start 03/17/19 at 15:35; Stop 03/18/19 at 08:42; Status DC Calcium Gluconate (Calcium Gluconate) 1,000 mg 1X IVP ; Start 03/17/19 at 15 :40; Status UNV Insulin Human Regular (HumuLIN R VIAL) 10 unit 1X STAT IV Last administered on 03/17/19at 15:53; Start 03/17/19 at 15:27; Stop 03/17/19 at 15:32; Status DC Dextrose (Dextrose 50%-Water Syringe) 25 gm 1X STAT IV Last administered on 03/17/19at 15:50; Start 03/17/19 at 15:27; Stop 03/17/19 at 15:32; Status DC Sodium Polystyrene Sulfonate (Kayexalate) 15 gm 1X STAT PO Last administered on 03/17/19at 15:50; Start 03/17/19 at 15:27; Stop 03/17/19 at 15:32; Status DC Calcium Gluconate (Calcium Gluconate) 1,000 mg 1X ONCE IV Last administered on 03/17/19at 16:44; Start 03/17/19 at 16:15; Stop 03/17/19 at 16:16; Status DC Calcium Gluconate (Calcium Gluconate) 1,000 mg 1X ONCE IV Last administered on 03/17/19at 16:44; Start 03/17/19 at 16:20; Stop 03/17/19 at 16:21; Status DC Fentanyl Citrate (Fentanyl 2ml Vial) 75 mcg 1X ONCE IV Last administered on 03/17/19at 17:05; Start 03/17/19 at 17:00; Stop 03/17/19 at 17:01; Status DC Aspirin (Ecotrin) 81 mg DAILYWBKFT PO Last administered on 03/18/19 08:44; Start 03/17/19 at 19:30 Atorvastatin Calcium (Lipitor) 40 mg QHS PO Last administered on 03/17/19 21:12; Start 03/17/19 at 21:00 Clopidogrel Bisulfate (Plavix) 75 mg DAILYWBKFT PO Last administered on 03/18/19 08:44; Start 03/17/19 at 19:30 Cyclobenzaprine HCl (Flexeril) 10 mg PRN TID PRN PO MUSCLE SPASMS; Start 03/17/19 at 18:30 Furosemide (Lasix) 40 mg BID94 PO Last administered on 03/18/19 08:46; Start 03/17/19 at 19:00 Gabapentin (Neurontin) 300 mg BID PO Last administered on 03/18/19 08:45; Start 03/17/19 at 21:00 Labetalol HCl (Trandate) 100 mg BID PO Last administered on 03/18/19 08:45; Start 03/17/19 at 21:00 Spironolactone (Aldactone) 25 mg DAILY PO Last administered on 03/18/19 08:46; Start 03/17/19 at 19:30 Temazepam (Restoril) 30 mg QHS PO Last administered on 03/17/19 21:13; Start 03/17/19 at 21:00 Trazodone HCl (Desyrel) 50 mg QHS PO Last administered on 03/17/19 21:13; Start 03/17/19 at 21:00 Amitriptyline HCl (Elavil) 100 mg QHS PO ; Start 03/17/19 at 21:00; Status UNV Glimepiride (Amaryl) 4 mg BID PO Last administered on 03/18/19 08:45; Start 03/17/19 at 21:00 Acetaminophen/ Hydrocodone Bitart (Lortab 7.5/325) 1 tab PRN Q6HRS PRN PO PAIN; Start 03/17/19 at 18:45; Stop 03/17/19 at 18:41; Status DC Pantoprazole Sodium (Protonix) 40 mg BIDAC PO Last administered on 03/18/19 08:45; Start 03/17/19 at 19:30 Ropinirole HCl (Requip) 0.5 mg QHS PO Last administered on 03/17/19 21:12; Start 03/17/19 at 21:00 Sacubitril/ Valsartan (Entresto 49 Mg-51 Mg) 2 tab BID PO Last administered on 03/18/19 08:46; Start 03/17/19 at 21:00 Linagliptin (Tradjenta) 5 mg DAILY PO Last administered on 03/18/19 08:45; Start 03/17/19 at 19:30 Non-Formulary Medication ([Aspirin] ) 325 mg DAILYWBKFT PO ; Start 03/18/19 at 08:00; Status UNV Acetaminophen/ Hydrocodone Bitart (Lortab 10/325) 1 tab PRN Q6HRS PRN PO PAIN Last administered on 03/18/19 08:45; Start 03/17/19 at 18:45 Enoxaparin Sodium (Lovenox 100mg Syringe) 90 mg QHS SQ Last administered on 03/17/19at 21:15; Start 03/17/19 at 21:00 Info (Anti-Coagulation Monitoring By Pharmacy) 1 each PRN DAILY PRN MC SEE COMMENTS Last administered on 03/18/19at 09:01; Start 03/18/19 at 08:30 Piperacillin Sod/ Tazobactam Sod (Zosyn Per Pharmacy) 1 each PRN DAILY PRN MC SEE COMMENTS; Start 03/18/19 at 08:45 Doxycycline Hyclate (Vibra-Tab) 100 mg BID PO Last administered on 03/18/19at 09:07; Start 03/18/19 at 09:00 Linezolid (Zyvox) 600 mg BID PO Last administered on 03/18/19 09:07; Start 03/18/19 at 09:00 Piperacillin Sod/ Tazobactam Sod 3.375 gm/Sodium Chloride 50 ml @ 100 mls/hr Q6HRS IV Last administered on 03/18/19 09:07; Start 03/18/19 at 09:00 Lactobacillus Rhamnosus (Culturelle) 1 cap BID PO ; Start 03/18/19 at 21:00 Active Scripts Active Trazodone Hcl 50 Mg Tablet 1 Tab PO QHS Furosemide 40 Mg Tablet 40 Mg PO [id number] Aspirin Ec (Aspirin) 81 Mg Tablet. 81 Mg PO DAILYWBKFT 60 Days Atorvastatin Calcium 40 Mg Tablet 40 Mg PO QHS 30 Days Glimepiride 4 Mg Tablet 1 Tab PO BID Plavix (Clopidogrel Bisulfate) 75 Mg Tablet 75 Mg PO DAILYWBKFT [Aspirin] 325 MG Tablet 325 Mg PO DAILYWBKFT Januvia (Sitagliptin Phosphate) 100 Mg Tablet 1 Tab PO DAILY Reported Labetalol Hcl 100 Mg Tablet 1 Tab PO BID Protonix (Pantoprazole Sodium) 20 Mg Tablet.dr 2 Tab PO BID Entresto 97 mg-103 mg Tablet (Sacubitril/Valsartan) 1 Each Tablet 1 Each PO BID Gabapentin 300 Mg Capsule 300 Mg PO BID Temazepam 30 Mg Capsule 1 Cap PO QHS Potassium Chloride 20 Meq Tablet.er 20 Meq PO DAILY Spironolactone 25 Mg Tablet 1 Tab PO DAILY Cyclobenzaprine Hcl 10 Mg Tablet 1 Tab PO TID PRN Ropinirole Hcl 2 Mg Tablet 0.5 Mg PO QHS Hydrocodone-Apap 10-300 (Hydrocodone Bit/Acetaminophen) 1 Each Tablet 1 Tab PO Q6HRS PRN Amitriptyline Hcl 100 Mg Tablet 1 Tab PO QHS Allergies Allergies: Coded Allergies: No Known Drug Allergies (Unverified , 07/22/14) ROS Review of System Per HPI Physical Exam Physical Exam GENERAL: mild short of breath HEEN: Om moist, o2 by NC NECK: Supple. HEART: leonidas + CHEST: ABDOMEN: soft, nontender. 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 Supportive care, I/O, avoid nephrotoxins, monitor Acute respiratory failure with pneumonia/sepsis with associated CM/CHF Pneumonia/Aspiration - On Abx per ID Intermediate possibility of PE reported- defer to Primary HyperKalemia- at presentation, resolved CKD stage 3 - Suspect sec to HTN and CHF Baseline unknown Hx of LEATHA's - at [facility] requiring HD x 2 ?November/Dec Hospitalized at [facility] Jan 2019 with BUN/Cr 130/ 6.5, renal function improved with Cr in 2's,he left AMA Has been advised OP fu with renal Chronic pain syndrome chronic opioid and benzo use Cardiomyopathy: recent EF 30-35% On PO Lasix and Aldactone, cardiology consulted HTN: stable DM2 : per PCP CAD: PCI/BMS to LAD/RCA, clinically stable. Hx of Noncompliance Labs Labs Laboratory Tests Test 03/17/19 14:26 03/17/19 16:00 03/17/19 18:00 03/18/19 07:14 White Blood Count 16.4 x10^3/uL (4.0-11.0) Red Blood Count 4.38 x10^6/uL (4.30-5.70) Hemoglobin 12.6 g/dL (13.0-17.5) Hematocrit 38.5 % (39.0-53.0) Mean Corpuscular Volume 88 fL (79-100) Mean Corpuscular Hemoglobin 29 pg (25-35) Mean Corpuscular Hemoglobin Concent 33 g/dL (31-37) Red Cell Distribution Width 15.1 % (11.5-14.5) Platelet Count 162 x10^3/uL (140-400) Neutrophils (%) (Auto) 93 % (31-73) Lymphocytes (%) (Auto) 2 % (24-48) Monocytes (%) (Auto) 5 % (0-9) Eosinophils (%) (Auto) 0 % (0-3) Basophils (%) (Auto) 0 % (0-3) Neutrophils # (Auto) 15.2 x10^3/uL (1.8-7.7) Lymphocytes # (Auto) 0.3 x10^3/uL (1.0-4.8) Monocytes # (Auto) 0.8 x10^3/uL (0.0-1.1) Eosinophils # (Auto) 0.0 x10^3/uL (0.0-0.7) Basophils # (Auto) 0.0 x10^3/uL (0.0-0.2) Segmented Neutrophils % 73 % (35-66) Band Neutrophils % 19 % (0-9) Lymphocytes % 3 % (24-48) Monocytes % 4 % (0-10) Basophils % 1 % (0-3) Toxic Vacuolation Slight Platelet Estimate Adequate (ADEQUATE) Prothrombin Time 12.9 SEC (11.7-14.0) Prothromb Time International Ratio 1.0 (0.8-1.1) Activated Partial Thromboplast Time 29 SEC (24-38) D-Dimer (Jennifer) 1.03 ug/mlFEU (0.00-0.50) Sodium Level 138 mmol/L (136-145) Potassium Level 6.4 mmol/L (3.5-5.1) Chloride Level 105 mmol/L (98-107) Carbon Dioxide Level 21 mmol/L (21-32) Anion Gap 12 (6-14) Blood Urea Nitrogen 50 mg/dL (8-26) Creatinine 3.0 mg/dL (0.7-1.3) Estimated GFR (Cockcroft-Gault) 22.1 BUN/Creatinine Ratio 17 (6-20) Glucose Level 255 mg/dL (70-99) Lactic Acid Level 3.6 mmol/L (0.4-2.0) 2.2 mmol/L (0.4-2.0) Calcium Level 8.9 mg/dL (8.5-10.1) Total Bilirubin 0.6 mg/dL (0.2-1.0) Aspartate Amino Transf (AST/SGOT) 20 U/L (15-37) Alanine Aminotransferase (ALT/SGPT) 15 U/L (16-63) Alkaline Phosphatase 73 U/L (46-116) Creatine Kinase 98 U/L (39-308) 73 U/L (39-308) 78 U/L (39-308) Creatine Kinase MB (Mass) 3.1 ng/mL (0.0-3.6) 2.4 ng/mL (0.0-3.6) 2.6 ng/mL (0.0-3.6) Creatine Kinase MB Relative Index 3.2 % (0-4) 3.3 % (0-4) 3.3 % (0-4) Troponin I Quantitative 0.284 ng/mL (0.000-0.055) 0.339 ng/mL (0.000-0.055) 0.420 ng/mL (0.000-0.055) JK-Gcd-M-Type Natriuretic Peptide 4473 pg/mL (0-124) Total Protein 7.2 g/dL (6.4-8.2) Albumin 3.1 g/dL (3.4-5.0) Albumin/Globulin Ratio 0.8 (1.0-1.7) Glucose (Fingerstick) 146 mg/dL (70-99) Test 03/18/19 08:05 White Blood Count 15.7 x10^3/uL (4.0-11.0) Red Blood Count 4.11 x10^6/uL (4.30-5.70) Hemoglobin 11.8 g/dL (13.0-17.5) Hematocrit 35.8 % (39.0-53.0) Mean Corpuscular Volume 87 fL (79-100) Mean Corpuscular Hemoglobin 29 pg (25-35) Mean Corpuscular Hemoglobin Concent 33 g/dL (31-37) Red Cell Distribution Width 15.2 % (11.5-14.5) Platelet Count 148 x10^3/uL (140-400) Neutrophils (%) (Auto) 89 % (31-73) Lymphocytes (%) (Auto) 5 % (24-48) Monocytes (%) (Auto) 5 % (0-9) Eosinophils (%) (Auto) 0 % (0-3) Basophils (%) (Auto) 0 % (0-3) Neutrophils # (Auto) 13.9 x10^3/uL (1.8-7.7) Lymphocytes # (Auto) 0.8 x10^3/uL (1.0-4.8) Monocytes # (Auto) 0.8 x10^3/uL (0.0-1.1) Eosinophils # (Auto) 0.1 x10^3/uL (0.0-0.7) Basophils # (Auto) 0.0 x10^3/uL (0.0-0.2) Sodium Level 140 mmol/L (136-145) Potassium Level 4.7 mmol/L (3.5-5.1) Chloride Level 106 mmol/L (98-107) Carbon Dioxide Level 25 mmol/L (21-32) Anion Gap 9 (6-14) Blood Urea Nitrogen 48 mg/dL (8-26) Creatinine 2.7 mg/dL (0.7-1.3) Estimated GFR (Cockcroft-Gault) 24.9 BUN/Creatinine Ratio 18 (6-20) Glucose Level 165 mg/dL (70-99) Calcium Level 8.7 mg/dL (8.5-10.1) Total Bilirubin 0.4 mg/dL (0.2-1.0) Aspartate Amino Transf (AST/SGOT) 13 U/L (15-37) Alanine Aminotransferase (ALT/SGPT) 11 U/L (16-63) Alkaline Phosphatase 65 U/L (46-116) Troponin I Quantitative 0.282 ng/mL (0.000-0.055) Total Protein 6.1 g/dL (6.4-8.2) Albumin 2.4 g/dL (3.4-5.0) Albumin/Globulin Ratio 0.6 (1.0-1.7) Laboratory Tests Test 03/17/19 14:26 03/17/19 16:00 03/17/19 18:00 03/18/19 07:14 White Blood Count 16.4 x10^3/uL (4.0-11.0) Red Blood Count 4.38 x10^6/uL (4.30-5.70) Hemoglobin 12.6 g/dL (13.0-17.5) Hematocrit 38.5 % (39.0-53.0) Mean Corpuscular Volume 88 fL (79-100) Mean Corpuscular Hemoglobin 29 pg (25-35) Mean Corpuscular Hemoglobin Concent 33 g/dL (31-37) Red Cell Distribution Width 15.1 % (11.5-14.5) Platelet Count 162 x10^3/uL (140-400) Neutrophils (%) (Auto) 93 % (31-73) Lymphocytes (%) (Auto) 2 % (24-48) Monocytes (%) (Auto) 5 % (0-9) Eosinophils (%) (Auto) 0 % (0-3) Basophils (%) (Auto) 0 % (0-3) Neutrophils # (Auto) 15.2 x10^3/uL (1.8-7.7) Lymphocytes # (Auto) 0.3 x10^3/uL (1.0-4.8) Monocytes # (Auto) 0.8 x10^3/uL (0.0-1.1) Eosinophils # (Auto) 0.0 x10^3/uL (0.0-0.7) Basophils # (Auto) 0.0 x10^3/uL (0.0-0.2) Segmented Neutrophils % 73 % (35-66) Band Neutrophils % 19 % (0-9) Lymphocytes % 3 % (24-48) Monocytes % 4 % (0-10) Basophils % 1 % (0-3) Toxic Vacuolation Slight Platelet Estimate Adequate (ADEQUATE) Prothrombin Time 12.9 SEC (11.7-14.0) Prothromb Time International Ratio 1.0 (0.8-1.1) Activated Partial Thromboplast Time 29 SEC (24-38) D-Dimer (Jennifer) 1.03 ug/mlFEU (0.00-0.50) Sodium Level 138 mmol/L (136-145) Potassium Level 6.4 mmol/L (3.5-5.1) Chloride Level 105 mmol/L (98-107) Carbon Dioxide Level 21 mmol/L (21-32) Anion Gap 12 (6-14) Blood Urea Nitrogen 50 mg/dL (8-26) Creatinine 3.0 mg/dL (0.7-1.3) Estimated GFR (Cockcroft-Gault) 22.1 BUN/Creatinine Ratio 17 (6-20) Glucose Level 255 mg/dL (70-99) Lactic Acid Level 3.6 mmol/L (0.4-2.0) 2.2 mmol/L (0.4-2.0) Calcium Level 8.9 mg/dL (8.5-10.1) Total Bilirubin 0.6 mg/dL (0.2-1.0) Aspartate Amino Transf (AST/SGOT) 20 U/L (15-37) Alanine Aminotransferase (ALT/SGPT) 15 U/L (16-63) Alkaline Phosphatase 73 U/L (46-116) Creatine Kinase 98 U/L (39-308) 73 U/L (39-308) 78 U/L (39-308) Creatine Kinase MB (Mass) 3.1 ng/mL (0.0-3.6) 2.4 ng/mL (0.0-3.6) 2.6 ng/mL (0.0-3.6) Creatine Kinase MB Relative Index 3.2 % (0-4) 3.3 % (0-4) 3.3 % (0-4) Troponin I Quantitative 0.284 ng/mL (0.000-0.055) 0.339 ng/mL (0.000-0.055) 0.420 ng/mL (0.000-0.055) BO-Bsf-Y-Type Natriuretic Peptide 4473 pg/mL (0-124) Total Protein 7.2 g/dL (6.4-8.2) Albumin 3.1 g/dL (3.4-5.0) Albumin/Globulin Ratio 0.8 (1.0-1.7) Glucose (Fingerstick) 146 mg/dL (70-99) Test 03/18/19 08:05 White Blood Count 15.7 x10^3/uL (4.0-11.0) Red Blood Count 4.11 x10^6/uL (4.30-5.70) Hemoglobin 11.8 g/dL (13.0-17.5) Hematocrit 35.8 % (39.0-53.0) Mean Corpuscular Volume 87 fL (79-100) Mean Corpuscular Hemoglobin 29 pg (25-35) Mean Corpuscular Hemoglobin Concent 33 g/dL (31-37) Red Cell Distribution Width 15.2 % (11.5-14.5) Platelet Count 148 x10^3/uL (140-400) Neutrophils (%) (Auto) 89 % (31-73) Lymphocytes (%) (Auto) 5 % (24-48) Monocytes (%) (Auto) 5 % (0-9) Eosinophils (%) (Auto) 0 % (0-3) Basophils (%) (Auto) 0 % (0-3) Neutrophils # (Auto) 13.9 x10^3/uL (1.8-7.7) Lymphocytes # (Auto) 0.8 x10^3/uL (1.0-4.8) Monocytes # (Auto) 0.8 x10^3/uL (0.0-1.1) Eosinophils # (Auto) 0.1 x10^3/uL (0.0-0.7) Basophils # (Auto) 0.0 x10^3/uL (0.0-0.2) Sodium Level 140 mmol/L (136-145) Potassium Level 4.7 mmol/L (3.5-5.1) Chloride Level 106 mmol/L (98-107) Carbon Dioxide Level 25 mmol/L (21-32) Anion Gap 9 (6-14) Blood Urea Nitrogen 48 mg/dL (8-26) Creatinine 2.7 mg/dL (0.7-1.3) Estimated GFR (Cockcroft-Gault) 24.9 BUN/Creatinine Ratio 18 (6-20) Glucose Level 165 mg/dL (70-99) Calcium Level 8.7 mg/dL (8.5-10.1) Total Bilirubin 0.4 mg/dL (0.2-1.0) Aspartate Amino Transf (AST/SGOT) 13 U/L (15-37) Alanine Aminotransferase (ALT/SGPT) 11 U/L (16-63) Alkaline Phosphatase 65 U/L (46-116) Troponin I Quantitative 0.282 ng/mL (0.000-0.055) Total Protein 6.1 g/dL (6.4-8.2) Albumin 2.4 g/dL (3.4-5.0) Albumin/Globulin Ratio 0.6 (1.0-1.7) Review All relevant outside records, renal labs, imaging studies, telemetry/EKG's were reviewed. Images Images Renal US Jan 2019- Right kidney: measures 11.4 x 4.8 x 5.4 cm. Normal cortical echotexture. Corticomedullary differentiation is preserved. No hydronephrosis. No renal cyst. No solid renal mass or calculus. Left kidney: measures 12.0 x 4.5 x 5.7 cm. Normal cortical echotexture. Corticomedullary differentiation is preserved. No hydronephrosis. No renal cyst. No solid renal mass or calculus. Urinary bladder: Decompressed urinary bladder with Eldridge catheter in place. IMPRESSION: 1. Unremarkable renal ultrasound. 2. Decompressed urinary bladder. CxR-- 1. New extensive left lung infiltrate with a smaller area of right medial basilar infiltrate. VQ- 1. A large triple match within the left lung healed intermediate probability for pulmonary embolism, though pneumonia and autoregulation could explain these findings if clinically consistent. CTA could further exclude pulmonary embolism if there is persistent concern. MARTIN ESTEVEZ MD Mar 18, 2019 09:41
--- NOTE | 2019-03-18 09:56 | CONS ---
DATE OF CONSULTATION: 03/18/2019 REFERRING PHYSICIAN: Dr. Chacon. REASON FOR CONSULTATION: Antibiotic management. HISTORY OF PRESENT ILLNESS: A 53-year-old male, presented to the ER on 03/17/2019 with complaints of fever, shortness of breath, chest pain, cough with sputum production. The patient had epigastric pain after he felt like some food was stuck in the chest. He started having worsening shortness of breath and cough. He was admitted at [facility] for syncopal episode a week ago. The patient has a history of diabetes, hypertension, CVA with left-sided facial droop and some upper extremity weakness. The patient started having more tremors since the onset of this illness. He denies any sick contacts. He received dose of vancomycin, levofloxacin and cefepime yesterday. The chest x-ray showed bilateral pulmonary infiltrate. White count was high at 16,000 with lactic acidosis. High ProBNP, high troponin. Potassium of 6.4, creatinine of 3.0. He underwent a pulmonary perfusion imaging, which showed a large triple-match within the left lung, healed intermediate probability of pulmonary embolism, although pneumonia and autoregulation could explain these findings. Chest x-ray showed large new extensive lung infiltrate with small area of right medial basilar infiltrate. ID consult has been requested for antibiotic management today. The patient says his fever pattern has improved. He remains on room air. Denies any nausea, vomiting, diarrhea, abdominal pain, symptoms. Denies any sick contact. Denies being on any antibiotics prior to admission. Denies any headache. Does have some scratchiness in the throat. Denies any oral sores. Denies any further episodes of difficulty swallowing. PAST MEDICAL HISTORY: Hypertension, diabetes, CVA, CHF, chronic low back pain, herniated disk, cyclic syndrome, back fracture, tonsillectomy, left ankle surgery, wrist surgery, cardiac stent, chronic renal insufficiency, history of being on dialysis in the past. ALLERGIES: No known drug allergies. SOCIAL HISTORY: Denies smoking, ETOH or illicit drug use. 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 FAMILY HISTORY: As per HPI. CURRENT MEDICATION: As above. Refer to MRAD. REVIEW OF SYSTEMS: Negative except for above in HPI. PHYSICAL EXAMINATION: VITAL SIGNS: Temperature 98.6, T-max 99.8, pulse 95, respiratory rate 20, blood pressure 133/75, oxygen saturation 95% on 2 liters. GENERAL: Alert and oriented x 3, male, in no acute distress. HEENT: Normocephalic, atraumatic, anicteric. No thrush. Oral mucosa moist. NECK: Supple, no JVD. LUNGS: Decreased breath sounds. No expiratory wheezing on the left and the right lung base. HEART: S1, S2. No gallops or murmurs. ABDOMEN: Soft, nontender, nondistended. EXTREMITIES: No edema, no cyanosis. NEUROLOGIC: Alert and oriented x 3, grossly nonfocal. PSYCHIATRIC: Cooperative, appropriate mood and affect. DERMATOLOGIC: Warm, dry, no generalized rash. Multiple tattoos. LABORATORY DATA: WBC 16.4, hemoglobin 12.6, hematocrit 38.5, platelets 162, neutrophil 93, bands 19. Lactate 3.6. Sodium 138, potassium 6.4, BUN 50, creatinine 3.0. LFTs within normal limits. BNP 4473. Troponin 0.284. CK 98. D-dimer 1.03. MICRO: None. IMAGING: Chest x-ray, no extensive left lung infiltrate, a small area of right medial basilar infiltrate. Pulmonary perfusion scan, large triple-match within the left lung, healed intermediate probability for pulmonary embolism. IMPRESSION: 1. Pulmonary infiltrate with febrile illness and leukocytosis and elevated D-dimer. 2. Acute kidney injury on chronic kidney disease, hyperkalemia. 3. Diabetes mellitus 2. 4. History of chronic diastolic/systolic congestive heart failure 5. Chronic pain. 6. Elevated D dimer, Abnormal V/Q scan. 7. History of noncompliance. RECOMMENDATIONS: 1. Start the patient on empiric Zosyn and Zyvox. 2. We will add doxycycline for atypical coverage. 3. Obtain blood cultures before starting these antibiotics. 4. Follow up labs and cultures. 5. Continue supportive care. Thank you, Dr. Chacon, for consulting Infectious Disease to participate in this patient's care. If you have any questions, do not hesitate to contact me. AURELIA SRIVASTAVA MD DR: MEGAN/jose JOB#: [id number] / [id number] STEPHANIE
[2019-03-18] MEDS ORDERED: PANTOPRAZOLE 40 MG TABLET.DR. PO ONE (10:30)
[2019-03-18 11:00] VITALS: BP 138/74
--- NOTE | 2019-03-18 11:47 | PDOC ---
PULMONARY PROGRESS NOTES Vitals Vital Signs Date Time Temp Pulse Resp B/P (MAP) Pulse Ox O2 Delivery O2 Flow Rate FiO2 03/18/19 10:33 93 Room Air 2.0 03/18/19 08:46 99 137/75 03/18/19 07:00 98.7 20 98.7 General: Alert, Oriented X4 Lungs: Clear, Other Cardiovascular: S1 Abdomen: Soft Extremities: No Edema Labs Laboratory Tests Test 03/17/19 14:26 03/17/19 16:00 03/17/19 18:00 03/18/19 07:14 White Blood Count 16.4 x10^3/uL (4.0-11.0) Red Blood Count 4.38 x10^6/uL (4.30-5.70) Hemoglobin 12.6 g/dL (13.0-17.5) Hematocrit 38.5 % (39.0-53.0) Mean Corpuscular Volume 88 fL (79-100) Mean Corpuscular Hemoglobin 29 pg (25-35) Mean Corpuscular Hemoglobin Concent 33 g/dL (31-37) Red Cell Distribution Width 15.1 % (11.5-14.5) Platelet Count 162 x10^3/uL (140-400) Neutrophils (%) (Auto) 93 % (31-73) Lymphocytes (%) (Auto) 2 % (24-48) Monocytes (%) (Auto) 5 % (0-9) Eosinophils (%) (Auto) 0 % (0-3) Basophils (%) (Auto) 0 % (0-3) Neutrophils # (Auto) 15.2 x10^3/uL (1.8-7.7) Lymphocytes # (Auto) 0.3 x10^3/uL (1.0-4.8) Monocytes # (Auto) 0.8 x10^3/uL (0.0-1.1) Eosinophils # (Auto) 0.0 x10^3/uL (0.0-0.7) Basophils # (Auto) 0.0 x10^3/uL (0.0-0.2) Segmented Neutrophils % 73 % (35-66) Band Neutrophils % 19 % (0-9) Lymphocytes % 3 % (24-48) Monocytes % 4 % (0-10) Basophils % 1 % (0-3) Toxic Vacuolation Slight Platelet Estimate Adequate (ADEQUATE) Prothrombin Time 12.9 SEC (11.7-14.0) Prothromb Time International Ratio 1.0 (0.8-1.1) Activated Partial Thromboplast Time 29 SEC (24-38) D-Dimer (Jennifer) 1.03 ug/mlFEU (0.00-0.50) Sodium Level 138 mmol/L (136-145) Potassium Level 6.4 mmol/L (3.5-5.1) Chloride Level 105 mmol/L (98-107) Carbon Dioxide Level 21 mmol/L (21-32) Anion Gap 12 (6-14) Blood Urea Nitrogen 50 mg/dL (8-26) Creatinine 3.0 mg/dL (0.7-1.3) Estimated GFR (Cockcroft-Gault) 22.1 BUN/Creatinine Ratio 17 (6-20) Glucose Level 255 mg/dL (70-99) Lactic Acid Level 3.6 mmol/L (0.4-2.0) 2.2 mmol/L (0.4-2.0) Calcium Level 8.9 mg/dL (8.5-10.1) Total Bilirubin 0.6 mg/dL (0.2-1.0) Aspartate Amino Transf (AST/SGOT) 20 U/L (15-37) Alanine Aminotransferase (ALT/SGPT) 15 U/L (16-63) Alkaline Phosphatase 73 U/L (46-116) Creatine Kinase 98 U/L (39-308) 73 U/L (39-308) 78 U/L (39-308) Creatine Kinase MB (Mass) 3.1 ng/mL (0.0-3.6) 2.4 ng/mL (0.0-3.6) 2.6 ng/mL (0.0-3.6) Creatine Kinase MB Relative Index 3.2 % (0-4) 3.3 % (0-4) 3.3 % (0-4) Troponin I Quantitative 0.284 ng/mL (0.000-0.055) 0.339 ng/mL (0.000-0.055) 0.420 ng/mL (0.000-0.055) TZ-Eey-W-Type Natriuretic Peptide 4473 pg/mL (0-124) Total Protein 7.2 g/dL (6.4-8.2) Albumin 3.1 g/dL (3.4-5.0) Albumin/Globulin Ratio 0.8 (1.0-1.7) Glucose (Fingerstick) 146 mg/dL (70-99) Test 03/18/19 08:05 White Blood Count 15.7 x10^3/uL (4.0-11.0) Red Blood Count 4.11 x10^6/uL (4.30-5.70) Hemoglobin 11.8 g/dL (13.0-17.5) Hematocrit 35.8 % (39.0-53.0) Mean Corpuscular Volume 87 fL (79-100) Mean Corpuscular Hemoglobin 29 pg (25-35) Mean Corpuscular Hemoglobin Concent 33 g/dL (31-37) Red Cell Distribution Width 15.2 % (11.5-14.5) Platelet Count 148 x10^3/uL (140-400) Neutrophils (%) (Auto) 89 % (31-73) Lymphocytes (%) (Auto) 5 % (24-48) Monocytes (%) (Auto) 5 % (0-9) Eosinophils (%) (Auto) 0 % (0-3) Basophils (%) (Auto) 0 % (0-3) Neutrophils # (Auto) 13.9 x10^3/uL (1.8-7.7) Lymphocytes # (Auto) 0.8 x10^3/uL (1.0-4.8) Monocytes # (Auto) 0.8 x10^3/uL (0.0-1.1) Eosinophils # (Auto) 0.1 x10^3/uL (0.0-0.7) Basophils # (Auto) 0.0 x10^3/uL (0.0-0.2) Sodium Level 140 mmol/L (136-145) Potassium Level 4.7 mmol/L (3.5-5.1) Chloride Level 106 mmol/L (98-107) Carbon Dioxide Level 25 mmol/L (21-32) Anion Gap 9 (6-14) Blood Urea Nitrogen 48 mg/dL (8-26) Creatinine 2.7 mg/dL (0.7-1.3) Estimated GFR (Cockcroft-Gault) 24.9 BUN/Creatinine Ratio 18 (6-20) Glucose Level 165 mg/dL (70-99) Calcium Level 8.7 mg/dL (8.5-10.1) Total Bilirubin 0.4 mg/dL (0.2-1.0) Aspartate Amino Transf (AST/SGOT) 13 U/L (15-37) Alanine Aminotransferase (ALT/SGPT) 11 U/L (16-63) Alkaline Phosphatase 65 U/L (46-116) Troponin I Quantitative 0.282 ng/mL (0.000-0.055) Total Protein 6.1 g/dL (6.4-8.2) Albumin 2.4 g/dL (3.4-5.0) Albumin/Globulin Ratio 0.6 (1.0-1.7) Laboratory Tests Test 03/17/19 14:26 03/17/19 16:00 03/17/19 18:00 03/18/19 07:14 White Blood Count 16.4 x10^3/uL (4.0-11.0) Red Blood Count 4.38 x10^6/uL (4.30-5.70) Hemoglobin 12.6 g/dL (13.0-17.5) Hematocrit 38.5 % (39.0-53.0) Mean Corpuscular Volume 88 fL (79-100) Mean Corpuscular Hemoglobin 29 pg (25-35) Mean Corpuscular Hemoglobin Concent 33 g/dL (31-37) Red Cell Distribution Width 15.1 % (11.5-14.5) Platelet Count 162 x10^3/uL (140-400) Neutrophils (%) (Auto) 93 % (31-73) Lymphocytes (%) (Auto) 2 % (24-48) Monocytes (%) (Auto) 5 % (0-9) Eosinophils (%) (Auto) 0 % (0-3) Basophils (%) (Auto) 0 % (0-3) Neutrophils # (Auto) 15.2 x10^3/uL (1.8-7.7) Lymphocytes # (Auto) 0.3 x10^3/uL (1.0-4.8) Monocytes # (Auto) 0.8 x10^3/uL (0.0-1.1) Eosinophils # (Auto) 0.0 x10^3/uL (0.0-0.7) Basophils # (Auto) 0.0 x10^3/uL (0.0-0.2) Segmented Neutrophils % 73 % (35-66) Band Neutrophils % 19 % (0-9) Lymphocytes % 3 % (24-48) Monocytes % 4 % (0-10) Basophils % 1 % (0-3) Toxic Vacuolation Slight Platelet Estimate Adequate (ADEQUATE) Prothrombin Time 12.9 SEC (11.7-14.0) Prothromb Time International Ratio 1.0 (0.8-1.1) Activated Partial Thromboplast Time 29 SEC (24-38) D-Dimer (Jennifer) 1.03 ug/mlFEU (0.00-0.50) Sodium Level 138 mmol/L (136-145) Potassium Level 6.4 mmol/L (3.5-5.1) Chloride Level 105 mmol/L (98-107) Carbon Dioxide Level 21 mmol/L (21-32) Anion Gap 12 (6-14) Blood Urea Nitrogen 50 mg/dL (8-26) Creatinine 3.0 mg/dL (0.7-1.3) Estimated GFR (Cockcroft-Gault) 22.1 BUN/Creatinine Ratio 17 (6-20) Glucose Level 255 mg/dL (70-99) Lactic Acid Level 3.6 mmol/L (0.4-2.0) 2.2 mmol/L (0.4-2.0) Calcium Level 8.9 mg/dL (8.5-10.1) Total Bilirubin 0.6 mg/dL (0.2-1.0) Aspartate Amino Transf (AST/SGOT) 20 U/L (15-37) Alanine Aminotransferase (ALT/SGPT) 15 U/L (16-63) Alkaline Phosphatase 73 U/L (46-116) Creatine Kinase 98 U/L (39-308) 73 U/L (39-308) 78 U/L (39-308) Creatine Kinase MB (Mass) 3.1 ng/mL (0.0-3.6) 2.4 ng/mL (0.0-3.6) 2.6 ng/mL (0.0-3.6) Creatine Kinase MB Relative Index 3.2 % (0-4) 3.3 % (0-4) 3.3 % (0-4) Troponin I Quantitative 0.284 ng/mL (0.000-0.055) 0.339 ng/mL (0.000-0.055) 0.420 ng/mL (0.000-0.055) CZ-Alr-C-Type Natriuretic Peptide 4473 pg/mL (0-124) Total Protein 7.2 g/dL (6.4-8.2) Albumin 3.1 g/dL (3.4-5.0) Albumin/Globulin Ratio 0.8 (1.0-1.7) Glucose (Fingerstick) 146 mg/dL (70-99) Test 03/18/19 08:05 White Blood Count 15.7 x10^3/uL (4.0-11.0) Red Blood Count 4.11 x10^6/uL (4.30-5.70) Hemoglobin 11.8 g/dL (13.0-17.5) Hematocrit 35.8 % (39.0-53.0) Mean Corpuscular Volume 87 fL (79-100) Mean Corpuscular Hemoglobin 29 pg (25-35) Mean Corpuscular Hemoglobin Concent 33 g/dL (31-37) Red Cell Distribution Width 15.2 % (11.5-14.5) Platelet Count 148 x10^3/uL (140-400) Neutrophils (%) (Auto) 89 % (31-73) Lymphocytes (%) (Auto) 5 % (24-48) Monocytes (%) (Auto) 5 % (0-9) Eosinophils (%) (Auto) 0 % (0-3) Basophils (%) (Auto) 0 % (0-3) Neutrophils # (Auto) 13.9 x10^3/uL (1.8-7.7) Lymphocytes # (Auto) 0.8 x10^3/uL (1.0-4.8) Monocytes # (Auto) 0.8 x10^3/uL (0.0-1.1) Eosinophils # (Auto) 0.1 x10^3/uL (0.0-0.7) Basophils # (Auto) 0.0 x10^3/uL (0.0-0.2) Sodium Level 140 mmol/L (136-145) Potassium Level 4.7 mmol/L (3.5-5.1) Chloride Level 106 mmol/L (98-107) Carbon Dioxide Level 25 mmol/L (21-32) Anion Gap 9 (6-14) Blood Urea Nitrogen 48 mg/dL (8-26) Creatinine 2.7 mg/dL (0.7-1.3) Estimated GFR (Cockcroft-Gault) 24.9 BUN/Creatinine Ratio 18 (6-20) Glucose Level 165 mg/dL (70-99) Calcium Level 8.7 mg/dL (8.5-10.1) Total Bilirubin 0.4 mg/dL (0.2-1.0) Aspartate Amino Transf (AST/SGOT) 13 U/L (15-37) Alanine Aminotransferase (ALT/SGPT) 11 U/L (16-63) Alkaline Phosphatase 65 U/L (46-116) Troponin I Quantitative 0.282 ng/mL (0.000-0.055) Total Protein 6.1 g/dL (6.4-8.2) Albumin 2.4 g/dL (3.4-5.0) Albumin/Globulin Ratio 0.6 (1.0-1.7) Medications Active Scripts Medications Dose Route/Sig Max Daily Dose Days Date Category Labetalol Hcl 100 Mg Tablet 1 Tab PO BID 03/17/19 Reported Protonix (Pantoprazole Sodium) 20 Mg Tablet.dr 2 Tab PO BID 02/11/19 Reported Entresto 97 mg-103 mg Tablet (Sacubitril/Valsartan) 1 Each Tablet 1 Each PO BID 02/11/19 Reported Gabapentin 300 Mg Capsule 300 Mg PO BID 02/11/19 Reported Temazepam 30 Mg Capsule 1 Cap PO QHS 02/11/19 Reported Potassium Chloride 20 Meq Tablet.er 20 Meq PO DAILY 02/11/19 Reported Spironolactone 25 Mg Tablet 1 Tab PO DAILY 02/11/19 Reported Cyclobenzaprine Hcl 10 Mg Tablet 1 Tab PO TID PRN 02/11/19 Reported Trazodone Hcl 50 Mg Tablet 1 Tab PO QHS 03/19/18 Rx Furosemide 40 Mg Tablet 40 Mg PO [id number] 03/19/18 Rx Aspirin Ec (Aspirin) 81 Mg Tablet.dr 81 Mg PO DAILYWBKFT 60 03/19/18 Rx Atorvastatin Calcium 40 Mg Tablet 40 Mg PO QHS 30 03/19/18 Rx Glimepiride 4 Mg Tablet 1 Tab PO BID 03/19/18 Rx Plavix (Clopidogrel Bisulfate) 75 Mg Tablet 75 Mg PO DAILYWBKFT 03/04/15 Rx [Aspirin] 325 MG Tablet 325 Mg PO DAILYWBKFT 03/04/15 Rx Januvia (Sitagliptin Phosphate) 100 Mg Tablet 1 Tab PO DAILY 11/18/14 Rx Ropinirole Hcl 2 Mg Tablet 0.5 Mg PO QHS 07/22/14 Reported Hydrocodone-Apap 10-300 (Hydrocodone Bit/Acetaminophen) 1 Each Tablet 1 Tab PO Q6HRS PRN 07/22/14 Reported Amitriptyline Hcl 100 Mg Tablet 1 Tab PO QHS 07/22/14 Reported Impression . FULL NOTE DICTATED NO PE PNEUMONIA CONCUR WITH RX THANKS LUCIO HUMPHRIES MD Mar 18, 2019 11:47
--- NOTE | 2019-03-18 12:36 | CONS ---
DATE OF CONSULTATION: 03/18/2019 Abnormal V/Q scan compatible with pneumonia. My clinical suspicion for PE is low. REASON FOR CONSULTATION: The patient seen in pulmonary consultation at the request of Dr. Chacon for abnormal chest x-ray and abnormal V/Q scan. HISTORY OF PRESENT ILLNESS: The patient is a 53-year-old who presented with cough, mucus production, choking, he might have aspirated. He was short of breath with exertion. He presented to [facility] Emergency Room. At that time, he also complained of fevers, some shortness of breath and chest pain. His pain is mainly in the epigastric area. The patient was transferred to [facility], had a chest x-ray which revealed extensive left-sided infiltrate. In addition, he had a D-dimer which was positive. Subsequently, he underwent a V/Q scan which showed a matched perfusion defects and perfusion defect in the left lung. I was asked to see him in consultation. The patient has no prior history of DVT or pulmonary embolism. He denies any tobacco use or drug use. He has not been vaping. He is currently on antibiotics. He has been seen by the Infectious Disease Service. PAST MEDICAL HISTORY: Remarkable for hypertension, diabetes, CVA, CHF and chronic back pain. He has had previous tonsillectomy, wrist surgery and cardiac stenting. There is also a previous history of chronic renal insufficiency on previous hemodialysis. ALLERGIES: No known drug allergies. SOCIAL HISTORY: He denies any tobacco or alcohol. He is currently unemployed. FAMILY HISTORY: Noncontributory. REVIEW OF SYSTEMS: As indicated above, otherwise a 10-point system was reviewed and negative. PHYSICAL EXAMINATION: GENERAL: The patient appeared to be older than stated age. He was in no respiratory distress. VITAL SIGNS: Stable. O2 saturation was greater than 92%. HEENT: Eyes, the sclerae was nonicteric. NECK: Jugular venous distention was not elevated. No lymphadenopathy. CHEST: Full expansion. LUNGS: Adequate air flow, no wheezes. He had crackles mainly on the left side. CARDIOVASCULAR: Regular rate and rhythm with S1, S2, no S3. ABDOMEN: Soft, nontender and nondistended. EXTREMITIES: No clubbing, cyanosis or edema. NEUROLOGIC: The patient was awake, alert, following commands. A detailed neuro exam was not performed. LABORATORY DATA: White count was elevated. Hemoglobin and hematocrit were noted. BUN and creatinine elevated. Troponin was elevated. D-dimer was elevated. IMPRESSION: 1. Abnormal x-ray compatible with pneumonia, suspect gram-negative, possibly gram-positive. 2. Possible aspiration pneumonia. 3. Acute hypoxemic respiratory failure. 4. Elevated D-dimer, nonspecific, suspect secondary to infection. 5. Acute on chronic kidney disease. 6. Type 2 diabetes. 7. Acute on chronic diastolic and systolic congestive heart failure, the patient with ejection fraction of 15%. 8. Abnormal V/Q scan compatible with the patient's pneumonia. My clinical suspicion is low. No need for anticoagulation. PLAN: 1. Continue current empiric antibiotics. 2. No need for anticoagulation. 3. Oxygen supplementation. 4. If the patient continues to improve, may be discharged home on oral antibiotics in 24-48 hours. LUCIO HUMPHRIES MD DR: GENESIS/jose JOB#: [id number] / [id number]
[2019-03-18 15:00] VITALS: BP 139/76
[2019-03-18] MEDS: ENOXAPARIN 40 MG/0.4 ML SYRINGE. SQ SCH (15:08)
[2019-03-18 17:56] LABS: BARBITURATES NEG (NEG); BENZODIAZEPINES NEG (NEG); CANNABINOIDS NEG (NEG); COCAINE NEG (NEG); METHADONE NEG (NEG); OPIATES POS (NEG); PHENCYCLIDINE NEG (NEG)
[2019-03-18 17:59] LABS: AMPHETAMINE/METHAMPHETAMINE NEG (NEG)
[2019-03-18 19:21] VITALS: BP 164/85
[2019-03-18] MEDS: CYCLOBENZAPRINE 10 MG TABLET. PO PRN (19:35)
[2019-03-18] MEDS: TEMAZEPAM 15 MG CAPSULE PO SCH (21:49)
[2019-03-18] MEDS: rOPINIRole 0.25 MG TABLET. PO SCH (21:49)
[2019-03-18] MEDS: ATORVASTATIN CALCIUM 40 MG TABLET. PO SCH (21:50)
[2019-03-18] MEDS: traZODone 50 MG TABLET. PO SCH (21:50)
[2019-03-18] MEDS: LACTOBACILLUS RHAMNOSUS GG 1 CAPSULE. PO SCH (21:51)
[2019-03-18 23:24] VITALS: BP 178/98
[2019-03-19] MEDS: PIPERACILLIN/TAZOBACTAM 3.375 GM in IV NORMAL SALINE 50ML 50 ML IV SCH ×5 (00:20→23:15)
[2019-03-19 03:39] VITALS: BP 136/87
[2019-03-19 07:11] VITALS: BP 140/85
[2019-03-19] MEDS: PANTOPRAZOLE 40 MG TABLET.DR. PO SCH ×2 (07:29→15:55)
[2019-03-19] MEDS ORDERED: PANTOPRAZOLE 40 MG TABLET.DR. PO SCH (07:30)
--- NOTE | 2019-03-19 08:25 | PDOC ---
Infectious Disease Note Subjective: Subjective pt has cough fever pattern improving ROS: ROS Negative otherwise. Vital Signs: Vital Signs Vital Signs Date Time Temp Pulse Resp B/P (MAP) Pulse Ox O2 Delivery O2 Flow Rate FiO2 03/19/19 07:11 98.6 86 16 140/85 (103) 91 Room Air 98.6 03/18/19 17:16 2.0 Physical Exam: PHYSICAL EXAM GENERAL: Alert and oriented x 3, male, in no acute distress. HEENT: Normocephalic, atraumatic, anicteric. No thrush. Oral mucosa moist. NECK: Supple, no JVD. LUNGS: Decreased breath sounds. No expiratory wheezing on the left and the right lung base. HEART: S1, S2. No gallops or murmurs. ABDOMEN: Soft, nontender, nondistended. EXTREMITIES: No edema, no cyanosis. NEUROLOGIC: Alert and oriented x 3, grossly nonfocal. PSYCHIATRIC: Cooperative, appropriate mood and affect. DERMATOLOGIC: Warm, dry, no generalized rash. Multiple tattoos. Medications: Inpatient Meds: Current Medications Medications (Trade) Dose Ordered Sig/Jerri Start Time Stop Time Status Last Admin Dose Admin Acetaminophen/ Hydrocodone Bitart (Lortab 10/325) 1 tab PRN Q6HRS PRN 03/17/19 18:45 03/18/19 21:50 1 TAB Acetaminophen/ Hydrocodone Bitart (Lortab 7.5/325) 1 tab PRN Q6HRS PRN 03/17/19 18:45 03/17/19 18:41 DC Amitriptyline HCl (Elavil) 100 mg QHS 03/17/19 21:00 UNV Aspirin (Children'S Aspirin) 324 mg 1X STAT 03/17/19 14:11 03/17/19 14:13 DC 03/17/19 14:31 324 MG Aspirin (Ecotrin) 81 mg DAILYWBKFT 03/17/19 19:30 03/18/19 08:44 81 MG Atorvastatin Calcium (Lipitor) 40 mg QHS 03/17/19 21:00 03/18/19 21:50 40 MG Calcium Gluconate (Calcium Gluconate) 1,000 mg 1X ONCE 03/17/19 16:20 03/17/19 16:21 DC 03/17/19 16:44 1,000 MG Cefepime HCl (Maxipime) 2 gm 1X ONCE 03/17/19 15:15 03/17/19 15:16 DC 03/17/19 15:47 2 GM Clopidogrel Bisulfate (Plavix) 75 mg DAILYWBKFT 03/17/19 19:30 03/18/19 08:44 75 MG Cyclobenzaprine HCl (Flexeril) 10 mg PRN TID PRN 03/17/19 18:30 03/18/19 19:35 10 MG Dextrose (Dextrose 50%-Water Syringe) 25 gm 1X STAT 03/17/19 15:27 03/17/19 15:32 DC 03/17/19 15:50 25 GM Doxycycline Hyclate (Vibra-Tab) 100 mg BID 03/18/19 09:00 03/18/19 21:49 100 MG Enoxaparin Sodium (Lovenox 100mg Syringe) 90 mg QHS 03/17/19 21:00 03/18/19 11:39 DC 03/17/19 21:15 90 MG Enoxaparin Sodium (Lovenox 40mg Syringe) 40 mg Q24H 03/18/19 15:00 03/18/19 15:08 40 MG Fentanyl Citrate (Fentanyl 2ml Vial) 75 mcg 1X ONCE 03/17/19 17:00 03/17/19 17:01 DC 03/17/19 17:05 75 MCG Furosemide (Lasix) 40 mg [id number] 03/17/19 19:00 03/18/19 15:06 40 MG Gabapentin (Neurontin) 300 mg BID 03/17/19 21:00 03/18/19 21:48 300 MG Glimepiride (Amaryl) 4 mg BID 03/17/19 21:00 03/18/19 21:49 4 MG Info (Anti-Coagulation Monitoring By Pharmacy) 1 each PRN DAILY PRN 03/18/19 08:30 03/18/19 09:01 1 EACH Insulin Human Regular (HumuLIN R VIAL) 10 unit 1X STAT 03/17/19 15:27 03/17/19 15:32 DC 03/17/19 15:53 10 UNIT Labetalol HCl (Trandate) 100 mg BID 03/17/19 21:00 03/18/19 21:50 100 MG Lactobacillus Rhamnosus (Culturelle) 1 cap BID 03/18/19 21:00 03/18/19 21:51 1 CAP Levofloxacin/ Dextrose 150 ml @ 100 mls/hr 1X ONCE 03/17/19 15:15 03/17/19 16:44 DC 03/17/19 15:52 100 MLS/HR Linagliptin (Tradjenta) 5 mg DAILY 03/17/19 19:30 03/18/19 08:45 5 MG Linezolid (Zyvox) 600 mg BID 03/18/19 09:00 03/18/19 21:50 600 MG Non-Formulary Medication ([Aspirin] ) 325 mg DAILYWBKFT 03/18/19 08:00 UNV Pantoprazole Sodium (Protonix) 40 mg 1X ONCE 03/18/19 10:30 03/18/19 10:31 DC Piperacillin Sod/ Tazobactam Sod (Zosyn Per Pharmacy) 1 each PRN DAILY PRN 03/18/19 08:45 Piperacillin Sod/ Tazobactam Sod 3.375 gm/Sodium Chloride 50 ml @ 100 mls/hr Q6HRS 03/18/19 09:00 03/19/19 06:06 100 MLS/HR Ropinirole HCl (Requip) 0.5 mg QHS 03/17/19 21:00 03/18/19 21:49 0.5 MG Sacubitril/ Valsartan (Entresto 49 Mg-51 Mg) 2 tab BID 03/17/19 21:00 03/18/19 21:49 2 TAB Sodium Polystyrene Sulfonate (Kayexalate) 15 gm 1X STAT 03/17/19 15:27 03/17/19 15:32 DC 03/17/19 15:50 15 GM Spironolactone (Aldactone) 25 mg DAILY 03/17/19 19:30 03/18/19 08:46 25 MG Temazepam (Restoril) 30 mg QHS 03/17/19 21:00 03/18/19 21:49 30 MG Trazodone HCl (Desyrel) 50 mg QHS 03/17/19 21:00 03/18/19 21:50 50 MG Vancomycin HCl 2 gm/Sodium Chloride 500 ml @ 250 mls/hr 1X ONCE 03/17/19 16:00 03/17/19 17:59 DC 03/17/19 18:44 250 MLS/HR Labs: Lab Laboratory Tests Test 03/18/19 11:48 03/18/19 17:08 03/18/19 17:43 03/18/19 20:55 Glucose (Fingerstick) 106 mg/dL (70-99) 125 mg/dL (70-99) 128 mg/dL (70-99) Urine Opiates Screen Pos (NEG) Urine Methadone Screen Neg (NEG) Urine Barbiturates Neg (NEG) Urine Phencyclidine Screen Neg (NEG) Urine Amphetamine/Methamphetamine Neg (NEG) Urine Benzodiazepines Screen Neg (NEG) Urine Cocaine Screen Neg (NEG) Urine Cannabinoids Screen Neg (NEG) Urine Ethyl Alcohol Neg (NEG) Test 03/19/19 07:14 Glucose (Fingerstick) 100 mg/dL (70-99) Objective: Assessment: 1. Pulmonary infiltrates with febrile illness and leukocytosis 2. Acute kidney injury on chronic kidney disease, hyperkalemia. 3. Diabetes mellitus 2. 4. Acute- on-chronic diastolic/systolic congestive heart failure with ejection fraction of 15%. 5. Chronic pain. 6. Elevated D Dimer with Abnormal V/Q scan. 7. History of noncompliance. Plan: Plan of Care cont Zosyn and Zyvox. cont doxycycline for atypical coverage. f/u cult and labs AURELIA SRIVASTAVA MD Mar 19, 2019 08:25
[2019-03-19] MEDS: GABAPENTIN 300 MG CAPSULE. PO SCH ×2 (08:27→20:28)
[2019-03-19] MEDS: SPIRONOLACTONE 25 MG TABLET PO SCH (08:27)
[2019-03-19] MEDS: ASPIRIN ENTERIC COATED 81 MG TABLET.DR. PO SCH (08:27)
[2019-03-19] MEDS: DOXYCYCLINE HYCLATE 100 MG TABLET PO SCH ×2 (08:27→20:27)
[2019-03-19] MEDS: CLOPIDOGREL BISULFATE 75 MG TABLET PO SCH (08:27)
[2019-03-19] MEDS: HYDROcodone/APAP 10/325 1 TAB TABLET PO PRN ×2 (08:27→20:35)
[2019-03-19] MEDS: SACUBITRIL/VALSARTAN 49/51MG TABLET. PO SCH ×2 (08:28→20:29)
[2019-03-19] MEDS: LACTOBACILLUS RHAMNOSUS GG 1 CAPSULE. PO SCH ×2 (08:28→20:28)
[2019-03-19] MEDS: GLIMEPIRIDE 2 MG TABLET. PO SCH ×2 (08:28→20:28)
[2019-03-19] MEDS: LINEZOLID 600 MG TABLET PO SCH ×2 (08:28→20:28)
[2019-03-19] MEDS: FUROSEMIDE 40 MG TABLET. PO SCH ×2 (08:28→15:55)
[2019-03-19] MEDS: LABETALOL HCL 100 MG TABLET. PO SCH ×2 (08:29→20:29)
[2019-03-19] MEDS: LINAGLIPTIN 5 MG TABLET PO SCH (08:29)
--- NOTE | 2019-03-19 09:19 | PDOC ---
PROGRESS NOTES History of Present Illness History of Present Illness ASSESSMENT Pneumonia, POSSIBLE ASPIRATION New extensive left lung infiltrate with a smaller area of right medial basilar infiltrate. acute respiratory failure, hyperkalemia, elevated troponin, DEMAND ISCHEMIA chronic renal insufficiency sepsis elevated lactic acid NO PE obesity Hx of cocaine abuse: recently noted on 03/01 [facility] RECENT ECHO The left ventricular systolic function is moderately impaired. The Ejection Fraction is 30-35%. Transmitral Doppler flow pattern is Grade I-abnormal relaxation pattern. admitted. IV antibiotics. cont Zosyn and Zyvox. cont doxycycline for atypical coverage. blood culture Consult Infectious Disease, consult Pulmonary. DuoNebs, oxygen support, home meds, DVT prophylaxis, full code, consult Dr. Martinez., nephrology CARDIOLOGY CONSULT 37 Min pt exam, chart review, > 50% of time spent with exam, chart review, pt care coordination Vitals Vitals Vital Signs Date Time Temp Pulse Resp B/P (MAP) Pulse Ox O2 Delivery O2 Flow Rate FiO2 03/19/19 08:29 86 140/85 03/19/19 08:27 91 Room Air 03/19/19 07:11 98.6 16 98.6 03/18/19 17:16 2.0 Physical Exam Physical Exam GENERAL: Alert and oriented x 3, male, in no acute distress. HEENT: Normocephalic, atraumatic, anicteric. No thrush. Oral mucosa moist. NECK: Supple, no JVD. LUNGS: Decreased breath sounds. No expiratory wheezing on the left and the right lung base. HEART: S1, S2. No gallops or murmurs. ABDOMEN: Soft, nontender, nondistended. EXTREMITIES: No edema, no cyanosis. NEUROLOGIC: Alert and oriented x 3, grossly nonfocal. PSYCHIATRIC: Cooperative, appropriate mood and affect. DERMATOLOGIC: Warm, dry, no generalized rash. Multiple tattoos. General: Alert, Oriented X3, Cooperative, No acute distress Heart: Regular rate (SR), Normal S1, Normal S2, Other (2/6 systolic murmur to LLS border) Lungs: Clear, Other Abdomen: Normal bowel sounds, Soft Extremities: No cyanosis Skin: No breakdown, No significant lesion Labs LABS Laboratory Tests Test 03/18/19 11:48 03/18/19 17:08 03/18/19 17:43 03/18/19 20:55 Glucose (Fingerstick) 106 mg/dL (70-99) 125 mg/dL (70-99) 128 mg/dL (70-99) Urine Opiates Screen Pos (NEG) Urine Methadone Screen Neg (NEG) Urine Barbiturates Neg (NEG) Urine Phencyclidine Screen Neg (NEG) Urine Amphetamine/Methamphetamine Neg (NEG) Urine Benzodiazepines Screen Neg (NEG) Urine Cocaine Screen Neg (NEG) Urine Cannabinoids Screen Neg (NEG) Urine Ethyl Alcohol Neg (NEG) Test 03/19/19 07:14 Glucose (Fingerstick) 100 mg/dL (70-99) Assessment and Plan Assessmemt and Plan Problems Medical Problems: (1) D-dimer, elevated Status: Acute (2) Elevated troponin Status: Acute (3) Hyperkalemia Status: Acute (4) Pneumonia Status: Acute (5) Sepsis Status: Acute Comment Review of Relevant I have reviewed the following items gavin (where applicable) has been applied. Labs Laboratory Tests Test 03/17/19 14:26 03/17/19 16:00 03/17/19 18:00 03/18/19 07:14 White Blood Count 16.4 x10^3/uL (4.0-11.0) Red Blood Count 4.38 x10^6/uL (4.30-5.70) Hemoglobin 12.6 g/dL (13.0-17.5) Hematocrit 38.5 % (39.0-53.0) Mean Corpuscular Volume 88 fL (79-100) Mean Corpuscular Hemoglobin 29 pg (25-35) Mean Corpuscular Hemoglobin Concent 33 g/dL (31-37) Red Cell Distribution Width 15.1 % (11.5-14.5) Platelet Count 162 x10^3/uL (140-400) Neutrophils (%) (Auto) 93 % (31-73) Lymphocytes (%) (Auto) 2 % (24-48) Monocytes (%) (Auto) 5 % (0-9) Eosinophils (%) (Auto) 0 % (0-3) Basophils (%) (Auto) 0 % (0-3) Neutrophils # (Auto) 15.2 x10^3/uL (1.8-7.7) Lymphocytes # (Auto) 0.3 x10^3/uL (1.0-4.8) Monocytes # (Auto) 0.8 x10^3/uL (0.0-1.1) Eosinophils # (Auto) 0.0 x10^3/uL (0.0-0.7) Basophils # (Auto) 0.0 x10^3/uL (0.0-0.2) Segmented Neutrophils % 73 % (35-66) Band Neutrophils % 19 % (0-9) Lymphocytes % 3 % (24-48) Monocytes % 4 % (0-10) Basophils % 1 % (0-3) Toxic Vacuolation Slight Platelet Estimate Adequate (ADEQUATE) Prothrombin Time 12.9 SEC (11.7-14.0) Prothromb Time International Ratio 1.0 (0.8-1.1) Activated Partial Thromboplast Time 29 SEC (24-38) D-Dimer (Jennifer) 1.03 ug/mlFEU (0.00-0.50) Sodium Level 138 mmol/L (136-145) Potassium Level 6.4 mmol/L (3.5-5.1) Chloride Level 105 mmol/L (98-107) Carbon Dioxide Level 21 mmol/L (21-32) Anion Gap 12 (6-14) Blood Urea Nitrogen 50 mg/dL (8-26) Creatinine 3.0 mg/dL (0.7-1.3) Estimated GFR (Cockcroft-Gault) 22.1 BUN/Creatinine Ratio 17 (6-20) Glucose Level 255 mg/dL (70-99) Lactic Acid Level 3.6 mmol/L (0.4-2.0) 2.2 mmol/L (0.4-2.0) Calcium Level 8.9 mg/dL (8.5-10.1) Total Bilirubin 0.6 mg/dL (0.2-1.0) Aspartate Amino Transf (AST/SGOT) 20 U/L (15-37) Alanine Aminotransferase (ALT/SGPT) 15 U/L (16-63) Alkaline Phosphatase 73 U/L (46-116) Creatine Kinase 98 U/L (39-308) 73 U/L (39-308) 78 U/L (39-308) Creatine Kinase MB (Mass) 3.1 ng/mL (0.0-3.6) 2.4 ng/mL (0.0-3.6) 2.6 ng/mL (0.0-3.6) Creatine Kinase MB Relative Index 3.2 % (0-4) 3.3 % (0-4) 3.3 % (0-4) Troponin I Quantitative 0.284 ng/mL (0.000-0.055) 0.339 ng/mL (0.000-0.055) 0.420 ng/mL (0.000-0.055) AA-Gqc-W-Type Natriuretic Peptide 4473 pg/mL (0-124) Total Protein 7.2 g/dL (6.4-8.2) Albumin 3.1 g/dL (3.4-5.0) Albumin/Globulin Ratio 0.8 (1.0-1.7) Glucose (Fingerstick) 146 mg/dL (70-99) Test 03/18/19 08:05 03/18/19 11:48 03/18/19 17:08 03/18/19 17:43 White Blood Count 15.7 x10^3/uL (4.0-11.0) Red Blood Count 4.11 x10^6/uL (4.30-5.70) Hemoglobin 11.8 g/dL (13.0-17.5) Hematocrit 35.8 % (39.0-53.0) Mean Corpuscular Volume 87 fL (79-100) Mean Corpuscular Hemoglobin 29 pg (25-35) Mean Corpuscular Hemoglobin Concent 33 g/dL (31-37) Red Cell Distribution Width 15.2 % (11.5-14.5) Platelet Count 148 x10^3/uL (140-400) Neutrophils (%) (Auto) 89 % (31-73) Lymphocytes (%) (Auto) 5 % (24-48) Monocytes (%) (Auto) 5 % (0-9) Eosinophils (%) (Auto) 0 % (0-3) Basophils (%) (Auto) 0 % (0-3) Neutrophils # (Auto) 13.9 x10^3/uL (1.8-7.7) Lymphocytes # (Auto) 0.8 x10^3/uL (1.0-4.8) Monocytes # (Auto) 0.8 x10^3/uL (0.0-1.1) Eosinophils # (Auto) 0.1 x10^3/uL (0.0-0.7) Basophils # (Auto) 0.0 x10^3/uL (0.0-0.2) Sodium Level 140 mmol/L (136-145) Potassium Level 4.7 mmol/L (3.5-5.1) Chloride Level 106 mmol/L (98-107) Carbon Dioxide Level 25 mmol/L (21-32) Anion Gap 9 (6-14) Blood Urea Nitrogen 48 mg/dL (8-26) Creatinine 2.7 mg/dL (0.7-1.3) Estimated GFR (Cockcroft-Gault) 24.9 BUN/Creatinine Ratio 18 (6-20) Glucose Level 165 mg/dL (70-99) Calcium Level 8.7 mg/dL (8.5-10.1) Total Bilirubin 0.4 mg/dL (0.2-1.0) Aspartate Amino Transf (AST/SGOT) 13 U/L (15-37) Alanine Aminotransferase (ALT/SGPT) 11 U/L (16-63) Alkaline Phosphatase 65 U/L (46-116) Troponin I Quantitative 0.282 ng/mL (0.000-0.055) Total Protein 6.1 g/dL (6.4-8.2) Albumin 2.4 g/dL (3.4-5.0) Albumin/Globulin Ratio 0.6 (1.0-1.7) Glucose (Fingerstick) 106 mg/dL (70-99) 125 mg/dL (70-99) Urine Opiates Screen Pos (NEG) Urine Methadone Screen Neg (NEG) Urine Barbiturates Neg (NEG) Urine Phencyclidine Screen Neg (NEG) Urine Amphetamine/Methamphetamine Neg (NEG) Urine Benzodiazepines Screen Neg (NEG) Urine Cocaine Screen Neg (NEG) Urine Cannabinoids Screen Neg (NEG) Urine Ethyl Alcohol Neg (NEG) Test 03/18/19 20:55 03/19/19 07:14 Glucose (Fingerstick) 128 mg/dL (70-99) 100 mg/dL (70-99) Laboratory Tests Test 03/18/19 11:48 03/18/19 17:08 03/18/19 17:43 03/18/19 20:55 Glucose (Fingerstick) 106 mg/dL (70-99) 125 mg/dL (70-99) 128 mg/dL (70-99) Urine Opiates Screen Pos (NEG) Urine Methadone Screen Neg (NEG) Urine Barbiturates Neg (NEG) Urine Phencyclidine Screen Neg (NEG) Urine Amphetamine/Methamphetamine Neg (NEG) Urine Benzodiazepines Screen Neg (NEG) Urine Cocaine Screen Neg (NEG) Urine Cannabinoids Screen Neg (NEG) Urine Ethyl Alcohol Neg (NEG) Test 03/19/19 07:14 Glucose (Fingerstick) 100 mg/dL (70-99) Microbiology 03/17/19 Blood Culture - Preliminary, Resulted NO GROWTH AFTER 1 DAY Medications Current Medications Aspirin (Children'S Aspirin) 324 mg 1X STAT PO Last administered on 03/17/19at 14:31; Start 03/17/19 at 14:11; Stop 03/17/19 at 14:13; Status DC Levofloxacin/ Dextrose 150 ml @ 100 mls/hr 1X ONCE IV Last administered on 03/17/19at 15:52; Start 03/17/19 at 15:15; Stop 03/17/19 at 16:44; Status DC Cefepime HCl (Maxipime) 2 gm 1X ONCE IVP Last administered on 03/17/19at 15:47; Start 03/17/19 at 15:15; Stop 03/17/19 at 15:16; Status DC Vancomycin HCl 2 gm/Sodium Chloride 500 ml @ 250 mls/hr 1X ONCE IV Last administered on 03/17/19at 18:44; Start 03/17/19 at 16:00; Stop 03/17/19 at 17:59; Status DC Calcium Gluconate (Calcium Gluconate) 1,000 mg 1X STAT IVP ; Start 03/17/19 at 15:27; Stop 03/17/19 at 15:28; Status UNV Calcium Gluconate (Calcium Gluconate) 1,000 mg 1X IVP Last administered on 03/17/19at 15:42; Start 03/17/19 at 15:35; Stop 03/18/19 at 08:42; Status DC Calcium Gluconate (Calcium Gluconate) 1,000 mg 1X IVP ; Start 03/17/19 at 15:40; Status UNV Insulin Human Regular (HumuLIN R VIAL) 10 unit 1X STAT IV Last administered on 03/17/19at 15:53; Start 03/17/19 at 15:27; Stop 03/17/19 at 15:32; Status DC Dextrose (Dextrose 50%-Water Syringe) 25 gm 1X STAT IV Last administered on 03/17/19 15:50; Start 03/17/19 at 15:27; Stop 03/17/19 at 15:32; Status DC Sodium Polystyrene Sulfonate (Kayexalate) 15 gm 1X STAT PO Last administered on 03/17/19 15:50; Start 03/17/19 at 15:27; Stop 03/17/19 at 15:32; Status DC Calcium Gluconate (Calcium Gluconate) 1,000 mg 1X ONCE IV Last administered on 03/17/19 16:44; Start 03/17/19 at 16:15; Stop 03/17/19 at 16:16; Status DC Calcium Gluconate (Calcium Gluconate) 1,000 mg 1X ONCE IV Last administered on 03/17/19 16:44; Start 03/17/19 at 16:20; Stop 03/17/19 at 16:21; Status DC Fentanyl Citrate (Fentanyl 2ml Vial) 75 mcg 1X ONCE IV Last administered on 03/17/19 17:05; Start 03/17/19 at 17:00; Stop 03/17/19 at 17:01; Status DC Aspirin (Ecotrin) 81 mg DAILYWBKFT PO Last administered on 03/19/19 08:27; Start 03/17/19 at 19:30 Atorvastatin Calcium (Lipitor) 40 mg QHS PO Last administered on 03/18/19 21:50; Start 03/17/19 at 21:00 Clopidogrel Bisulfate (Plavix) 75 mg DAILYWBKFT PO Last administered on 03/19/19 08:27; Start 03/17/19 at 19:30 Cyclobenzaprine HCl (Flexeril) 10 mg PRN TID PRN PO MUSCLE SPASMS Last administered on 03/18/19 19:35; Start 03/17/19 at 18:30 Furosemide (Lasix) 40 mg BID94 PO Last administered on 03/19/19 08:28; Start 03/17/19 at 19:00 Gabapentin (Neurontin) 300 mg BID PO Last administered on 03/19/19 08:27; Start 03/17/19 at 21:00 Labetalol HCl (Trandate) 100 mg BID PO Last administered on 03/19/19 08:29; Start 03/17/19 at 21:00 Spironolactone (Aldactone) 25 mg DAILY PO Last administered on 03/19/19 08:27; Start 03/17/19 at 19:30 Temazepam (Restoril) 30 mg QHS PO Last administered on 03/18/19 21:49; Start 03/17/19 at 21:00 Trazodone HCl (Desyrel) 50 mg QHS PO Last administered on 03/18/19 21:50; Start 03/17/19 at 21:00 Amitriptyline HCl (Elavil) 100 mg QHS PO ; Start 03/17/19 at 21:00; Status UNV Glimepiride (Amaryl) 4 mg BID PO Last administered on 03/19/19 08:28; Start 03/17/19 at 21:00 Acetaminophen/ Hydrocodone Bitart (Lortab 7.5/325) 1 tab PRN Q6HRS PRN PO PAIN; Start 03/17/19 at 18:45; Stop 03/17/19 at 18:41; Status DC Pantoprazole Sodium (Protonix) 40 mg BIDAC PO Last administered on 03/19/19 07:29; Start 03/17/19 at 19:30 Ropinirole HCl (Requip) 0.5 mg QHS PO Last administered on 03/18/19 21:49; Start 03/17/19 at 21:00 Sacubitril/ Valsartan (Entresto 49 Mg-51 Mg) 2 tab BID PO Last administered on 03/19/19 08:28; Start 03/17/19 at 21:00 Linagliptin (Tradjenta) 5 mg DAILY PO Last administered on 03/19/19 08:29; Start 03/17/19 at 19:30 Non-Formulary Medication ([Aspirin] ) 325 mg DAILYWBKFT PO ; Start 03/18/19 at 08:00; Status UNV Acetaminophen/ Hydrocodone Bitart (Lortab 10/325) 1 tab PRN Q6HRS PRN PO PAIN Last administered on 03/19/19 08:27; Start 03/17/19 at 18:45 Enoxaparin Sodium (Lovenox 100mg Syringe) 90 mg QHS SQ Last administered on 03/17/19at 21:15; Start 03/17/19 at 21:00; Stop 03/18/19 at 11:39; Status DC Info (Anti-Coagulation Monitoring By Pharmacy) 1 each PRN DAILY PRN MC SEE COMMENTS Last administered on 03/18/19at 09:01; Start 03/18/19 at 08:30 Piperacillin Sod/ Tazobactam Sod (Zosyn Per Pharmacy) 1 each PRN DAILY PRN MC SEE COMMENTS; Start 03/18/19 at 08:45 Doxycycline Hyclate (Vibra-Tab) 100 mg BID PO Last administered on 03/19/19at 08:27; Start 03/18/19 at 09:00 Linezolid (Zyvox) 600 mg BID PO Last administered on 03/19/19at 08:28; Start 03/18/19 at 09:00 Piperacillin Sod/ Tazobactam Sod 3.375 gm/Sodium Chloride 50 ml @ 100 mls/hr Q6HRS IV Last administered on 03/19/19at 06:06; Start 03/18/19 at 09:00 Lactobacillus Rhamnosus (Culturelle) 1 cap BID PO Last administered on 03/19/19at 08:28; Start 03/18/19 at 21:00 Pantoprazole Sodium (Protonix) 40 mg DAILYAC PO ; Start 03/19/19 at 07:30 Pantoprazole Sodium (Protonix) 40 mg 1X ONCE PO ; Start 03/18/19 at 10:30; Stop 03/18/19 at 10:31; Status DC Enoxaparin Sodium (Lovenox 40mg Syringe) 40 mg Q24H SQ Last administered on 03/18/19at 15:08; Start 03/18/19 at 15:00 Active Scripts Active Trazodone Hcl 50 Mg Tablet 1 Tab PO QHS Furosemide 40 Mg Tablet 40 Mg PO [id number] Aspirin Ec (Aspirin) 81 Mg Tablet.dr 81 Mg PO DAILYWBKFT 60 Days Atorvastatin Calcium 40 Mg Tablet 40 Mg PO QHS 30 Days Glimepiride 4 Mg Tablet 1 Tab PO BID Plavix (Clopidogrel Bisulfate) 75 Mg Tablet 75 Mg PO DAILYWBKFT [Aspirin] 325 MG Tablet 325 Mg PO DAILYWBKFT Januvia (Sitagliptin Phosphate) 100 Mg Tablet 1 Tab PO DAILY Reported Labetalol Hcl 100 Mg Tablet 1 Tab PO BID Protonix (Pantoprazole Sodium) 20 Mg Tablet.dr 2 Tab PO BID Entresto 97 mg-103 mg Tablet (Sacubitril/Valsartan) 1 Each Tablet 1 Each PO BID Gabapentin 300 Mg Capsule 300 Mg PO BID Temazepam 30 Mg Capsule 1 Cap PO QHS Potassium Chloride 20 Meq Tablet.er 20 Meq PO DAILY Spironolactone 25 Mg Tablet 1 Tab PO DAILY Cyclobenzaprine Hcl 10 Mg Tablet 1 Tab PO TID PRN Ropinirole Hcl 2 Mg Tablet 0.5 Mg PO QHS Hydrocodone-Apap 10-300 (Hydrocodone Bit/Acetaminophen) 1 Each Tablet 1 Tab PO Q6HRS PRN Amitriptyline Hcl 100 Mg Tablet 1 Tab PO QHS Vitals/I & O Vital Sign - Last 24 Hours 03/18/19 03/18/19 03/18/19 03/18/19 10:33 11:00 15:00 15:06 Temp 98.9 98.7 98.9 98.7 Pulse 93 91 Resp 20 20 B/P (MAP) 138/74 (95) 139/76 (97) Pulse Ox 93 94 90 94 O2 Delivery Room Air Room Air Room Air Room Air O2 Flow Rate 2.0 2.0 03/18/19 03/18/19 03/18/19 03/18/19 17:16 19:21 20:00 21:49 Temp 98.9 98.9 Pulse 93 93 Resp 16 B/P (MAP) 164/85 (111) 164/85 Pulse Ox 94 94 O2 Delivery Room Air Room Air Room Air O2 Flow Rate 2.0 03/18/19 03/18/19 03/18/19 03/18/19 21:50 21:50 22:50 23:24 Temp 98.4 98.4 Pulse 93 92 Resp 16 B/P (MAP) 164/85 178/98 (124) Pulse Ox 94 94 93 O2 Delivery Room Air Room Air Room Air 03/19/19 03/19/19 03/19/19 03/19/19 03:39 07:11 08:00 08:27 Temp 98.2 98.6 98.2 98.6 Pulse 84 86 Resp 16 16 B/P (MAP) 136/87 (103) 140/85 (103) Pulse Ox 92 91 91 O2 Delivery Room Air Room Air Room Air Room Air 03/19/19 03/19/19 08:28 08:29 Pulse 86 86 B/P (MAP) 140/85 140/85 Intake and Output 03/18/19 03/18/19 03/19/19 14:59 22:59 06:59 Intake Total 360 ml 360 ml Output Total 600 ml 1800 ml 1400 ml Balance -600 ml -1440 ml -1040 ml FRANNY ROJAS MD Mar 19, 2019 09:19
--- NOTE | 2019-03-19 09:33 | PDOC ---
PULMONARY PROGRESS NOTES Subjective PT TIRED NOT MORE SOA Vitals Vital Signs Date Time Temp Pulse Resp B/P (MAP) Pulse Ox O2 Delivery O2 Flow Rate FiO2 03/19/19 08:29 86 140/85 03/19/19 08:27 91 Room Air 03/19/19 07:11 98.6 16 98.6 03/18/19 17:16 2.0 ROS: No Nausea, No Chest Pain, No Abdominal Pain, No Increase Cough General: Alert Lungs: Clear, Crackles Cardiovascular: S1 Abdomen: Soft Neuro Exam: Alert Extremities: No Edema Skin: Warm Labs Laboratory Tests Test 03/17/19 14:26 03/17/19 16:00 03/17/19 18:00 03/18/19 07:14 White Blood Count 16.4 x10^3/uL (4.0-11.0) Red Blood Count 4.38 x10^6/uL (4.30-5.70) Hemoglobin 12.6 g/dL (13.0-17.5) Hematocrit 38.5 % (39.0-53.0) Mean Corpuscular Volume 88 fL (79-100) Mean Corpuscular Hemoglobin 29 pg (25-35) Mean Corpuscular Hemoglobin Concent 33 g/dL (31-37) Red Cell Distribution Width 15.1 % (11.5-14.5) Platelet Count 162 x10^3/uL (140-400) Neutrophils (%) (Auto) 93 % (31-73) Lymphocytes (%) (Auto) 2 % (24-48) Monocytes (%) (Auto) 5 % (0-9) Eosinophils (%) (Auto) 0 % (0-3) Basophils (%) (Auto) 0 % (0-3) Neutrophils # (Auto) 15.2 x10^3/uL (1.8-7.7) Lymphocytes # (Auto) 0.3 x10^3/uL (1.0-4.8) Monocytes # (Auto) 0.8 x10^3/uL (0.0-1.1) Eosinophils # (Auto) 0.0 x10^3/uL (0.0-0.7) Basophils # (Auto) 0.0 x10^3/uL (0.0-0.2) Segmented Neutrophils % 73 % (35-66) Band Neutrophils % 19 % (0-9) Lymphocytes % 3 % (24-48) Monocytes % 4 % (0-10) Basophils % 1 % (0-3) Toxic Vacuolation Slight Platelet Estimate Adequate (ADEQUATE) Prothrombin Time 12.9 SEC (11.7-14.0) Prothromb Time International Ratio 1.0 (0.8-1.1) Activated Partial Thromboplast Time 29 SEC (24-38) D-Dimer (Jennifer) 1.03 ug/mlFEU (0.00-0.50) Sodium Level 138 mmol/L (136-145) Potassium Level 6.4 mmol/L (3.5-5.1) Chloride Level 105 mmol/L (98-107) Carbon Dioxide Level 21 mmol/L (21-32) Anion Gap 12 (6-14) Blood Urea Nitrogen 50 mg/dL (8-26) Creatinine 3.0 mg/dL (0.7-1.3) Estimated GFR (Cockcroft-Gault) 22.1 BUN/Creatinine Ratio 17 (6-20) Glucose Level 255 mg/dL (70-99) Lactic Acid Level 3.6 mmol/L (0.4-2.0) 2.2 mmol/L (0.4-2.0) Calcium Level 8.9 mg/dL (8.5-10.1) Total Bilirubin 0.6 mg/dL (0.2-1.0) Aspartate Amino Transf (AST/SGOT) 20 U/L (15-37) Alanine Aminotransferase (ALT/SGPT) 15 U/L (16-63) Alkaline Phosphatase 73 U/L (46-116) Creatine Kinase 98 U/L (39-308) 73 U/L (39-308) 78 U/L (39-308) Creatine Kinase MB (Mass) 3.1 ng/mL (0.0-3.6) 2.4 ng/mL (0.0-3.6) 2.6 ng/mL (0.0-3.6) Creatine Kinase MB Relative Index 3.2 % (0-4) 3.3 % (0-4) 3.3 % (0-4) Troponin I Quantitative 0.284 ng/mL (0.000-0.055) 0.339 ng/mL (0.000-0.055) 0.420 ng/mL (0.000-0.055) GU-Idz-E-Type Natriuretic Peptide 4473 pg/mL (0-124) Total Protein 7.2 g/dL (6.4-8.2) Albumin 3.1 g/dL (3.4-5.0) Albumin/Globulin Ratio 0.8 (1.0-1.7) Glucose (Fingerstick) 146 mg/dL (70-99) Test 03/18/19 08:05 03/18/19 11:48 03/18/19 17:08 03/18/19 17:43 White Blood Count 15.7 x10^3/uL (4.0-11.0) Red Blood Count 4.11 x10^6/uL (4.30-5.70) Hemoglobin 11.8 g/dL (13.0-17.5) Hematocrit 35.8 % (39.0-53.0) Mean Corpuscular Volume 87 fL (79-100) Mean Corpuscular Hemoglobin 29 pg (25-35) Mean Corpuscular Hemoglobin Concent 33 g/dL (31-37) Red Cell Distribution Width 15.2 % (11.5-14.5) Platelet Count 148 x10^3/uL (140-400) Neutrophils (%) (Auto) 89 % (31-73) Lymphocytes (%) (Auto) 5 % (24-48) Monocytes (%) (Auto) 5 % (0-9) Eosinophils (%) (Auto) 0 % (0-3) Basophils (%) (Auto) 0 % (0-3) Neutrophils # (Auto) 13.9 x10^3/uL (1.8-7.7) Lymphocytes # (Auto) 0.8 x10^3/uL (1.0-4.8) Monocytes # (Auto) 0.8 x10^3/uL (0.0-1.1) Eosinophils # (Auto) 0.1 x10^3/uL (0.0-0.7) Basophils # (Auto) 0.0 x10^3/uL (0.0-0.2) Sodium Level 140 mmol/L (136-145) Potassium Level 4.7 mmol/L (3.5-5.1) Chloride Level 106 mmol/L (98-107) Carbon Dioxide Level 25 mmol/L (21-32) Anion Gap 9 (6-14) Blood Urea Nitrogen 48 mg/dL (8-26) Creatinine 2.7 mg/dL (0.7-1.3) Estimated GFR (Cockcroft-Gault) 24.9 BUN/Creatinine Ratio 18 (6-20) Glucose Level 165 mg/dL (70-99) Calcium Level 8.7 mg/dL (8.5-10.1) Total Bilirubin 0.4 mg/dL (0.2-1.0) Aspartate Amino Transf (AST/SGOT) 13 U/L (15-37) Alanine Aminotransferase (ALT/SGPT) 11 U/L (16-63) Alkaline Phosphatase 65 U/L (46-116) Troponin I Quantitative 0.282 ng/mL (0.000-0.055) Total Protein 6.1 g/dL (6.4-8.2) Albumin 2.4 g/dL (3.4-5.0) Albumin/Globulin Ratio 0.6 (1.0-1.7) Glucose (Fingerstick) 106 mg/dL (70-99) 125 mg/dL (70-99) Urine Opiates Screen Pos (NEG) Urine Methadone Screen Neg (NEG) Urine Barbiturates Neg (NEG) Urine Phencyclidine Screen Neg (NEG) Urine Amphetamine/Methamphetamine Neg (NEG) Urine Benzodiazepines Screen Neg (NEG) Urine Cocaine Screen Neg (NEG) Urine Cannabinoids Screen Neg (NEG) Urine Ethyl Alcohol Neg (NEG) Test 03/18/19 20:55 03/19/19 07:14 Glucose (Fingerstick) 128 mg/dL (70-99) 100 mg/dL (70-99) Laboratory Tests Test 03/18/19 11:48 03/18/19 17:08 03/18/19 17:43 03/18/19 20:55 Glucose (Fingerstick) 106 mg/dL (70-99) 125 mg/dL (70-99) 128 mg/dL (70-99) Urine Opiates Screen Pos (NEG) Urine Methadone Screen Neg (NEG) Urine Barbiturates Neg (NEG) Urine Phencyclidine Screen Neg (NEG) Urine Amphetamine/Methamphetamine Neg (NEG) Urine Benzodiazepines Screen Neg (NEG) Urine Cocaine Screen Neg (NEG) Urine Cannabinoids Screen Neg (NEG) Urine Ethyl Alcohol Neg (NEG) Test 03/19/19 07:14 Glucose (Fingerstick) 100 mg/dL (70-99) Medications Active Scripts Medications Dose Route/Sig Max Daily Dose Days Date Category Labetalol Hcl 100 Mg Tablet 1 Tab PO BID 03/17/19 Reported Protonix (Pantoprazole Sodium) 20 Mg Tablet.dr 2 Tab PO BID 02/11/19 Reported Entresto 97 mg-103 mg Tablet (Sacubitril/Valsartan) 1 Each Tablet 1 Each PO BID 02/11/19 Reported Gabapentin 300 Mg Capsule 300 Mg PO BID 02/11/19 Reported Temazepam 30 Mg Capsule 1 Cap PO QHS 02/11/19 Reported Potassium Chloride 20 Meq Tablet.er 20 Meq PO DAILY 02/11/19 Reported Spironolactone 25 Mg Tablet 1 Tab PO DAILY 02/11/19 Reported Cyclobenzaprine Hcl 10 Mg Tablet 1 Tab PO TID PRN 02/11/19 Reported Trazodone Hcl 50 Mg Tablet 1 Tab PO QHS 03/19/18 Rx Furosemide 40 Mg Tablet 40 Mg PO [id number] 03/19/18 Rx Aspirin Ec (Aspirin) 81 Mg Tablet.dr 81 Mg PO DAILYWBKFT 60 03/19/18 Rx Atorvastatin Calcium 40 Mg Tablet 40 Mg PO QHS 30 03/19/18 Rx Glimepiride 4 Mg Tablet 1 Tab PO BID 03/19/18 Rx Plavix (Clopidogrel Bisulfate) 75 Mg Tablet 75 Mg PO [id number] 03/04/15 Rx [Aspirin] 325 MG Tablet 325 Mg PO DAILYWBKFT 03/04/15 Rx Januvia (Sitagliptin Phosphate) 100 Mg Tablet 1 Tab PO DAILY 11/18/14 Rx Ropinirole Hcl 2 Mg Tablet 0.5 Mg PO QHS 07/22/14 Reported Hydrocodone-Apap 10-300 (Hydrocodone Bit/Acetaminophen) 1 Each Tablet 1 Tab PO Q6HRS PRN 07/22/14 Reported Amitriptyline Hcl 100 Mg Tablet 1 Tab PO QHS 07/22/14 Reported Impression . IMPRESSION: 1. Abnormal x-ray compatible with pneumonia, suspect gram-negative, possibly gram-positive. 2. Possible aspiration pneumonia. 3. Acute hypoxemic respiratory failure. 4. Elevated D-dimer, nonspecific, suspect secondary to infection. 5. Acute on chronic kidney disease. 6. Type 2 diabetes. 7. Acute on chronic diastolic and systolic congestive heart failure, the patient with ejection fraction of 15%. 8. Abnormal V/Q scan compatible with the patient's pneumonia. My clinical suspicion is low. No need for anticoagulation. Plan . D/C HOME SOON ON ORAL ANTIBX PER LUCIO MARINO MD Mar 19, 2019 09:33
[2019-03-19 10:15] VITALS: BP 142/71
[2019-03-19 10:55] LABS: CALCIUM 8.6 mg/dL (8.5-10.1); GFR 22.1; POTASSIUM 4.6 mmol/L (3.5-5.1)
[2019-03-19 10:58] LABS: BASO % 0 % (0-3); EOS # 0.3 x10^3/uL (0.0-0.7); EOS % 2 % (0-3); HEMATOCRIT 37.4 % (39.0-53.0); HEMOGLOBIN 12.5 g/dL (13.0-17.5); LYMPH % 7 % (24-48); MEAN CORPUSCULAR HEMOGLOBIN 29 pg (25-35); MEAN CORPUSCULAR HGB CONC 33 g/dL (31-37); MEAN CORPUSCULAR VOLUME 86 fL (79-100); MONO # 0.8 x10^3/uL (0.0-1.1); MONO % 5 % (0-9); NEUT # 12.3 x10^3/uL (1.8-7.7); NEUT % 86 % (31-73); PLATELET COUNT 165 x10^3/uL (140-400); RED BLOOD COUNT 4.36 x10^6/uL (4.30-5.70); RED CELL DISTRIBUTION WIDTH 14.8 % (11.5-14.5); WHITE BLOOD COUNT 14.4 x10^3/uL (4.0-11.0)
[2019-03-19] MEDS: CYCLOBENZAPRINE 10 MG TABLET. PO PRN (12:11)
--- NOTE | 2019-03-19 13:13 | PDOC ---
PROGRESS NOTES Subjective Subjective Patient seen and examined Objective Objective Vital Signs Date Time Temp Pulse Resp B/P (MAP) Pulse Ox O2 Delivery O2 Flow Rate FiO2 03/19/19 10:15 98.0 90 16 142/71 (94) 92 Room Air 98.0 03/19/19 09:57 2.0 Intake and Output 03/19/19 07:00 Intake Total 720 ml Output Total 3800 ml Balance -3080 ml Intake Oral 720 ml Output Urine Total 3800 ml Physical Exam Abdomen: Normal bowel sounds Heart: Regular rate General: mild distress Lungs: Other (mildly decreased breath sounds) Assessment Assessment Problems Medical Problems: (1) D-dimer, elevated Status: Acute (2) Elevated troponin Status: Acute (3) Hyperkalemia Status: Acute (4) Pneumonia Status: Acute (5) Sepsis Status: Acute 1. Acute respiratory failure with pneumonia/sepsis with associated CM/CHF. Continues to slowly improve. Is somewhat fatigued today. Followed by the pulmonary service. 2. Cardiomyopathy: recent EF 30-35%, combined NICM/ICM' 3. Acute on chronic systolic CHF: mild. and currently compensated 4. LEATHA on CKD with hyperkalemia: improving 5. Elevated troponin: peaked at 0.4 consistent with type 2, demand mediated by culprits above. CP free 6. Chronic pain syndrome: on chronic opioid and benzo use 7. HTN: controlled 8. DM2/HLP: per PCP 9. CAD: PCI/BMS to LAD/RCA 10..GERD exacerbation with intermittent sensation of food entrapment: per PCP 11. Hx of Noncompliance: due to financial constraints. Discussed with the patient. 12. Hx of cocaine abuse: recently noted on 03/01 Comment Review of Relevant I have reviewed the following items gavin (where applicable) has been applied. Labs Laboratory Tests Test 03/17/19 14:26 03/17/19 16:00 03/17/19 18:00 03/18/19 07:14 White Blood Count 16.4 x10^3/uL (4.0-11.0) Red Blood Count 4.38 x10^6/uL (4.30-5.70) Hemoglobin 12.6 g/dL (13.0-17.5) Hematocrit 38.5 % (39.0-53.0) Mean Corpuscular Volume 88 fL (79-100) Mean Corpuscular Hemoglobin 29 pg (25-35) Mean Corpuscular Hemoglobin Concent 33 g/dL (31-37) Red Cell Distribution Width 15.1 % (11.5-14.5) Platelet Count 162 x10^3/uL (140-400) Neutrophils (%) (Auto) 93 % (31-73) Lymphocytes (%) (Auto) 2 % (24-48) Monocytes (%) (Auto) 5 % (0-9) Eosinophils (%) (Auto) 0 % (0-3) Basophils (%) (Auto) 0 % (0-3) Neutrophils # (Auto) 15.2 x10^3/uL (1.8-7.7) Lymphocytes # (Auto) 0.3 x10^3/uL (1.0-4.8) Monocytes # (Auto) 0.8 x10^3/uL (0.0-1.1) Eosinophils # (Auto) 0.0 x10^3/uL (0.0-0.7) Basophils # (Auto) 0.0 x10^3/uL (0.0-0.2) Segmented Neutrophils % 73 % (35-66) Band Neutrophils % 19 % (0-9) Lymphocytes % 3 % (24-48) Monocytes % 4 % (0-10) Basophils % 1 % (0-3) Toxic Vacuolation Slight Platelet Estimate Adequate (ADEQUATE) Prothrombin Time 12.9 SEC (11.7-14.0) Prothromb Time International Ratio 1.0 (0.8-1.1) Activated Partial Thromboplast Time 29 SEC (24-38) D-Dimer (Jennifer) 1.03 ug/mlFEU (0.00-0.50) Sodium Level 138 mmol/L (136-145) Potassium Level 6.4 mmol/L (3.5-5.1) Chloride Level 105 mmol/L (98-107) Carbon Dioxide Level 21 mmol/L (21-32) Anion Gap 12 (6-14) Blood Urea Nitrogen 50 mg/dL (8-26) Creatinine 3.0 mg/dL (0.7-1.3) Estimated GFR (Cockcroft-Gault) 22.1 BUN/Creatinine Ratio 17 (6-20) Glucose Level 255 mg/dL (70-99) Lactic Acid Level 3.6 mmol/L (0.4-2.0) 2.2 mmol/L (0.4-2.0) Calcium Level 8.9 mg/dL (8.5-10.1) Total Bilirubin 0.6 mg/dL (0.2-1.0) Aspartate Amino Transf (AST/SGOT) 20 U/L (15-37) Alanine Aminotransferase (ALT/SGPT) 15 U/L (16-63) Alkaline Phosphatase 73 U/L (46-116) Creatine Kinase 98 U/L (39-308) 73 U/L (39-308) 78 U/L (39-308) Creatine Kinase MB (Mass) 3.1 ng/mL (0.0-3.6) 2.4 ng/mL (0.0-3.6) 2.6 ng/mL (0.0-3.6) Creatine Kinase MB Relative Index 3.2 % (0-4) 3.3 % (0-4) 3.3 % (0-4) Troponin I Quantitative 0.284 ng/mL (0.000-0.055) 0.339 ng/mL (0.000-0.055) 0.420 ng/mL (0.000-0.055) EZ-Evi-L-Type Natriuretic Peptide 4473 pg/mL (0-124) Total Protein 7.2 g/dL (6.4-8.2) Albumin 3.1 g/dL (3.4-5.0) Albumin/Globulin Ratio 0.8 (1.0-1.7) Glucose (Fingerstick) 146 mg/dL (70-99) Test 03/18/19 08:05 03/18/19 11:48 03/18/19 17:08 03/18/19 17:43 White Blood Count 15.7 x10^3/uL (4.0-11.0) Red Blood Count 4.11 x10^6/uL (4.30-5.70) Hemoglobin 11.8 g/dL (13.0-17.5) Hematocrit 35.8 % (39.0-53.0) Mean Corpuscular Volume 87 fL (79-100) Mean Corpuscular Hemoglobin 29 pg (25-35) Mean Corpuscular Hemoglobin Concent 33 g/dL (31-37) Red Cell Distribution Width 15.2 % (11.5-14.5) Platelet Count 148 x10^3/uL (140-400) Neutrophils (%) (Auto) 89 % (31-73) Lymphocytes (%) (Auto) 5 % (24-48) Monocytes (%) (Auto) 5 % (0-9) Eosinophils (%) (Auto) 0 % (0-3) Basophils (%) (Auto) 0 % (0-3) Neutrophils # (Auto) 13.9 x10^3/uL (1.8-7.7) Lymphocytes # (Auto) 0.8 x10^3/uL (1.0-4.8) Monocytes # (Auto) 0.8 x10^3/uL (0.0-1.1) Eosinophils # (Auto) 0.1 x10^3/uL (0.0-0.7) Basophils # (Auto) 0.0 x10^3/uL (0.0-0.2) Sodium Level 140 mmol/L (136-145) Potassium Level 4.7 mmol/L (3.5-5.1) Chloride Level 106 mmol/L (98-107) Carbon Dioxide Level 25 mmol/L (21-32) Anion Gap 9 (6-14) Blood Urea Nitrogen 48 mg/dL (8-26) Creatinine 2.7 mg/dL (0.7-1.3) Estimated GFR (Cockcroft-Gault) 24.9 BUN/Creatinine Ratio 18 (6-20) Glucose Level 165 mg/dL (70-99) Calcium Level 8.7 mg/dL (8.5-10.1) Total Bilirubin 0.4 mg/dL (0.2-1.0) Aspartate Amino Transf (AST/SGOT) 13 U/L (15-37) Alanine Aminotransferase (ALT/SGPT) 11 U/L (16-63) Alkaline Phosphatase 65 U/L (46-116) Troponin I Quantitative 0.282 ng/mL (0.000-0.055) Total Protein 6.1 g/dL (6.4-8.2) Albumin 2.4 g/dL (3.4-5.0) Albumin/Globulin Ratio 0.6 (1.0-1.7) Glucose (Fingerstick) 106 mg/dL (70-99) 125 mg/dL (70-99) Urine Opiates Screen Pos (NEG) Urine Methadone Screen Neg (NEG) Urine Barbiturates Neg (NEG) Urine Phencyclidine Screen Neg (NEG) Urine Amphetamine/Methamphetamine Neg (NEG) Urine Benzodiazepines Screen Neg (NEG) Urine Cocaine Screen Neg (NEG) Urine Cannabinoids Screen Neg (NEG) Urine Ethyl Alcohol Neg (NEG) Test 03/18/19 20:55 03/19/19 07:14 03/19/19 10:44 03/19/19 11:44 Glucose (Fingerstick) 128 mg/dL (70-99) 100 mg/dL (70-99) 122 mg/dL (70-99) White Blood Count 14.4 x10^3/uL (4.0-11.0) Red Blood Count 4.36 x10^6/uL (4.30-5.70) Hemoglobin 12.5 g/dL (13.0-17.5) Hematocrit 37.4 % (39.0-53.0) Mean Corpuscular Volume 86 fL (79-100) Mean Corpuscular Hemoglobin 29 pg (25-35) Mean Corpuscular Hemoglobin Concent 33 g/dL (31-37) Red Cell Distribution Width 14.8 % (11.5-14.5) Platelet Count 165 x10^3/uL (140-400) Neutrophils (%) (Auto) 86 % (31-73) Lymphocytes (%) (Auto) 7 % (24-48) Monocytes (%) (Auto) 5 % (0-9) Eosinophils (%) (Auto) 2 % (0-3) Basophils (%) (Auto) 0 % (0-3) Neutrophils # (Auto) 12.3 x10^3/uL (1.8-7.7) Lymphocytes # (Auto) 1.0 x10^3/uL (1.0-4.8) Monocytes # (Auto) 0.8 x10^3/uL (0.0-1.1) Eosinophils # (Auto) 0.3 x10^3/uL (0.0-0.7) Basophils # (Auto) 0.0 x10^3/uL (0.0-0.2) Sodium Level 140 mmol/L (136-145) Potassium Level 4.6 mmol/L (3.5-5.1) Chloride Level 104 mmol/L (98-107) Carbon Dioxide Level 26 mmol/L (21-32) Anion Gap 10 (6-14) Blood Urea Nitrogen 47 mg/dL (8-26) Creatinine 3.0 mg/dL (0.7-1.3) Estimated GFR (Cockcroft-Gault) 22.1 Glucose Level 94 mg/dL (70-99) Calcium Level 8.6 mg/dL (8.5-10.1) Laboratory Tests Test 03/18/19 17:08 03/18/19 17:43 03/18/19 20:55 03/19/19 07:14 Glucose (Fingerstick) 125 mg/dL (70-99) 128 mg/dL (70-99) 100 mg/dL (70-99) Urine Opiates Screen Pos (NEG) Urine Methadone Screen Neg (NEG) Urine Barbiturates Neg (NEG) Urine Phencyclidine Screen Neg (NEG) Urine Amphetamine/Methamphetamine Neg (NEG) Urine Benzodiazepines Screen Neg (NEG) Urine Cocaine Screen Neg (NEG) Urine Cannabinoids Screen Neg (NEG) Urine Ethyl Alcohol Neg (NEG) Test 03/19/19 10:44 03/19/19 11:44 White Blood Count 14.4 x10^3/uL (4.0-11.0) Red Blood Count 4.36 x10^6/uL (4.30-5.70) Hemoglobin 12.5 g/dL (13.0-17.5) Hematocrit 37.4 % (39.0-53.0) Mean Corpuscular Volume 86 fL (79-100) Mean Corpuscular Hemoglobin 29 pg (25-35) Mean Corpuscular Hemoglobin Concent 33 g/dL (31-37) Red Cell Distribution Width 14.8 % (11.5-14.5) Platelet Count 165 x10^3/uL (140-400) Neutrophils (%) (Auto) 86 % (31-73) Lymphocytes (%) (Auto) 7 % (24-48) Monocytes (%) (Auto) 5 % (0-9) Eosinophils (%) (Auto) 2 % (0-3) Basophils (%) (Auto) 0 % (0-3) Neutrophils # (Auto) 12.3 x10^3/uL (1.8-7.7) Lymphocytes # (Auto) 1.0 x10^3/uL (1.0-4.8) Monocytes # (Auto) 0.8 x10^3/uL (0.0-1.1) Eosinophils # (Auto) 0.3 x10^3/uL (0.0-0.7) Basophils # (Auto) 0.0 x10^3/uL (0.0-0.2) Sodium Level 140 mmol/L (136-145) Potassium Level 4.6 mmol/L (3.5-5.1) Chloride Level 104 mmol/L (98-107) Carbon Dioxide Level 26 mmol/L (21-32) Anion Gap 10 (6-14) Blood Urea Nitrogen 47 mg/dL (8-26) Creatinine 3.0 mg/dL (0.7-1.3) Estimated GFR (Cockcroft-Gault) 22.1 Glucose Level 94 mg/dL (70-99) Calcium Level 8.6 mg/dL (8.5-10.1) Glucose (Fingerstick) 122 mg/dL (70-99) Microbiology 03/17/19 Blood Culture - Preliminary, Resulted NO GROWTH AFTER 1 DAY Medications Current Medications Aspirin (Children'S Aspirin) 324 mg 1X STAT PO Last administered on 03/17/19at 14:31; Start 03/17/19 at 14:11; Stop 03/17/19 at 14:13; Status DC Levofloxacin/ Dextrose 150 ml @ 100 mls/hr 1X ONCE IV Last administered on 03/17/19at 15:52; Start 03/17/19 at 15:15; Stop 03/17/19 at 16:44; Status DC Cefepime HCl (Maxipime) 2 gm 1X ONCE IVP Last administered on 03/17/19at 15:47; Start 03/17/19 at 15:15; Stop 03/17/19 at 15:16; Status DC Vancomycin HCl 2 gm/Sodium Chloride 500 ml @ 250 mls/hr 1X ONCE IV Last administered on 03/17/19at 18:44; Start 03/17/19 at 16:00; Stop 03/17/19 at 17:59; Status DC Calcium Gluconate (Calcium Gluconate) 1,000 mg 1X STAT IVP ; Start 03/17/19 at 15:27; Stop 03/17/19 at 15:28; Status UNV Calcium Gluconate (Calcium Gluconate) 1,000 mg 1X IVP Last administered on 03/17/19 15:42; Start 03/17/19 at 15:35; Stop 03/18/19 at 08:42; Status DC Calcium Gluconate (Calcium Gluconate) 1,000 mg 1X IVP ; Start 03/17/19 at 15:40; Status UNV Insulin Human Regular (HumuLIN R VIAL) 10 unit 1X STAT IV Last administered on 03/17/19at 15:53; Start 03/17/19 at 15:27; Stop 03/17/19 at 15:32; Status DC Dextrose (Dextrose 50%-Water Syringe) 25 gm 1X STAT IV Last administered on 03/17/19 15:50; Start 03/17/19 at 15:27; Stop 03/17/19 at 15:32; Status DC Sodium Polystyrene Sulfonate (Kayexalate) 15 gm 1X STAT PO Last administered on 03/17/19 15:50; Start 03/17/19 at 15:27; Stop 03/17/19 at 15:32; Status DC Calcium Gluconate (Calcium Gluconate) 1,000 mg 1X ONCE IV Last administered on 03/17/19 16:44; Start 03/17/19 at 16:15; Stop 03/17/19 at 16:16; Status DC Calcium Gluconate (Calcium Gluconate) 1,000 mg 1X ONCE IV Last administered on 03/17/19 16:44; Start 03/17/19 at 16:20; Stop 03/17/19 at 16:21; Status DC Fentanyl Citrate (Fentanyl 2ml Vial) 75 mcg 1X ONCE IV Last administered on 03/17/19 17:05; Start 03/17/19 at 17:00; Stop 03/17/19 at 17:01; Status DC Aspirin (Ecotrin) 81 mg DAILYWBKFT PO Last administered on 03/19/19 08:27; Start 03/17/19 at 19:30 Atorvastatin Calcium (Lipitor) 40 mg QHS PO Last administered on 03/18/19 21:50; Start 03/17/19 at 21:00 Clopidogrel Bisulfate (Plavix) 75 mg DAILYWBKFT PO Last administered on 1 08:27; Start 03/17/19 at 19:30 Cyclobenzaprine HCl (Flexeril) 10 mg PRN TID PRN PO MUSCLE SPASMS Last administered on 03/19/19 12:11; Start 03/17/19 at 18:30 Furosemide (Lasix) 40 mg [id number] PO Last administered on 03/19/19 08:28; Start 03/17/19 at 19:00 Gabapentin (Neurontin) 300 mg BID PO Last administered on 03/19/19 08:27; Start 03/17/19 at 21:00 Labetalol HCl (Trandate) 100 mg BID PO Last administered on 03/19/19 08:29; Start 03/17/19 at 21:00 Spironolactone (Aldactone) 25 mg DAILY PO Last administered on 03/19/19 08:27; Start 03/17/19 at 19:30 Temazepam (Restoril) 30 mg QHS PO Last administered on 03/18/19 21:49; Start 03/17/19 at 21:00 Trazodone HCl (Desyrel) 50 mg QHS PO Last administered on 03/18/19 21:50; Start 03/17/19 at 21:00 Amitriptyline HCl (Elavil) 100 mg QHS PO ; Start 03/17/19 at 21:00; Status UNV Glimepiride (Amaryl) 4 mg BID PO Last administered on 03/19/19 08:28; Start 03/17/19 at 21:00 Acetaminophen/ Hydrocodone Bitart (Lortab 7.5/325) 1 tab PRN Q6HRS PRN PO PAIN; Start 03/17/19 at 18:45; Stop 03/17/19 at 18:41; Status DC Pantoprazole Sodium (Protonix) 40 mg BIDAC PO Last administered on 03/19/19 07:29; Start 03/17/19 at 19:30 Ropinirole HCl (Requip) 0.5 mg QHS PO Last administered on 03/18/19 21:49; Start 03/17/19 at 21:00 Sacubitril/ Valsartan (Entresto 49 Mg-51 Mg) 2 tab BID PO Last administered on 03/19/19 08:28; Start 03/17/19 at 21:00 Linagliptin (Tradjenta) 5 mg DAILY PO Last administered on 03/19/19 08:29; Start 03/17/19 at 19:30 Non-Formulary Medication ([Aspirin] ) 325 mg DAILYWBKFT PO ; Start 03/18/19 at 08:00; Status UNV Acetaminophen/ Hydrocodone Bitart (Lortab 10/325) 1 tab PRN Q6HRS PRN PO PAIN Last administered on 03/19/19 08:27; Start 03/17/19 at 18:45 Enoxaparin Sodium (Lovenox 100mg Syringe) 90 mg QHS SQ Last administered on 03/17/19 21:15; Start 03/17/19 at 21:00; Stop 03/18/19 at 11:39; Status DC Info (Anti-Coagulation Monitoring By Pharmacy) 1 each PRN DAILY PRN MC SEE COMMENTS Last administered on 03/18/19 09:01; Start 03/18/19 at 08:30 Piperacillin Sod/ Tazobactam Sod (Zosyn Per Pharmacy) 1 each PRN DAILY PRN MC S EE COMMENTS; Start 03/18/19 at 08:45 Doxycycline Hyclate (Vibra-Tab) 100 mg BID PO Last administered on 03/19/19 08:27; Start 03/18/19 at 09:00 Linezolid (Zyvox) 600 mg BID PO Last administered on 03/19/19 08:28; Start 03/18/19 at 09:00 Piperacillin Sod/ Tazobactam Sod 3.375 gm/Sodium Chloride 50 ml @ 100 mls/hr Q6HRS IV Last administered on 03/19/19at 12:10; Start 03/18/19 at 09:00 Lactobacillus Rhamnosus (Culturelle) 1 cap BID PO Last administered on 03/19/19 08:28; Start 03/18/19 at 21:00 Pantoprazole Sodium (Protonix) 40 mg DAILYAC PO ; Start 03/19/19 at 07:30 Pantoprazole Sodium (Protonix) 40 mg 1X ONCE PO ; Start 03/18/19 at 10:30; Stop 03/18/19 at 10:31; Status DC Enoxaparin Sodium (Lovenox 40mg Syringe) 40 mg Q24H SQ Last administered on 03/18/19at 15:08; Start 03/18/19 at 15:00 Active Scripts Active Trazodone Hcl 50 Mg Tablet 1 Tab PO QHS Furosemide 40 Mg Tablet 40 Mg PO [id number] Aspirin Ec (Aspirin) 81 Mg Tablet. 81 Mg PO DAILYWBKFT 60 Days Atorvastatin Calcium 40 Mg Tablet 40 Mg PO QHS 30 Days Glimepiride 4 Mg Tablet 1 Tab PO BID Plavix (Clopidogrel Bisulfate) 75 Mg Tablet 75 Mg PO DAILYWBKFT [Aspirin] 325 MG Tablet 325 Mg PO DAILYWBKFT Januvia (Sitagliptin Phosphate) 100 Mg Tablet 1 Tab PO DAILY Reported Labetalol Hcl 100 Mg Tablet 1 Tab PO BID Protonix (Pantoprazole Sodium) 20 Mg Tablet. 2 Tab PO BID Entresto 97 mg-103 mg Tablet (Sacubitril/Valsartan) 1 Each Tablet 1 Each PO BID Gabapentin 300 Mg Capsule 300 Mg PO BID Temazepam 30 Mg Capsule 1 Cap PO QHS Potassium Chloride 20 Meq Tablet.er 20 Meq PO DAILY Spironolactone 25 Mg Tablet 1 Tab PO DAILY Cyclobenzaprine Hcl 10 Mg Tablet 1 Tab PO TID PRN Ropinirole Hcl 2 Mg Tablet 0.5 Mg PO QHS Hydrocodone-Apap 10-300 (Hydrocodone Bit/Acetaminophen) 1 Each Tablet 1 Tab PO Q6HRS PRN Amitriptyline Hcl 100 Mg Tablet 1 Tab PO QHS Vitals/I & O Vital Sign - Last 24 Hours 03/18/19 03/18/19 03/18/19 03/18/19 15:00 15:06 17:16 19:21 Temp 98.7 98.9 98.7 98.9 Pulse 91 93 Resp 20 16 B/P (MAP) 139/76 (97) 164/85 (111) Pulse Ox 90 94 94 94 O2 Delivery Room Air Room Air Room Air Room Air O2 Flow Rate 2.0 2.0 03/18/19 03/18/19 03/18/19 03/18/19 20:00 21:49 21:50 21:50 Pulse 93 93 B/P (MAP) 164/85 164/85 Pulse Ox 94 O2 Delivery Room Air Room Air 03/18/19 03/18/19 03/19/19 03/19/19 22:50 23:24 03:39 07:11 Temp 98.4 98.2 98.6 98.4 98.2 98.6 Pulse 92 84 86 Resp 16 16 16 B/P (MAP) 178/98 (124) 136/87 (103) 140/85 (103) Pulse Ox 94 93 92 91 O2 Delivery Room Air Room Air Room Air Room Air 03/19/19 03/19/19 03/19/19 03/19/19 08:00 08:27 08:28 08:29 Pulse 86 86 B/P (MAP) 140/85 140/85 Pulse Ox 91 O2 Delivery Room Air Room Air 03/19/19 03/19/19 09:57 10:15 Temp 98.0 98.0 Pulse 90 Resp 16 B/P (MAP) 142/71 (94) Pulse Ox 91 92 O2 Delivery Room Air Room Air O2 Flow Rate 2.0 Intake and Output 03/18/19 03/18/19 03/19/19 15:00 23:00 07:00 Intake Total 360 ml 360 ml Output Total 600 ml 1800 ml 1400 ml Balance -600 ml -1440 ml -1040 ml YOANA BROWN MD Mar 19, 2019 13:13
--- NOTE | 2019-03-19 13:52 | PDOC ---
SUBJECTIVE ROS Better, On RA OBJECTIVE Vital Signs Vital Signs Date Time Temp Pulse Resp B/P (MAP) Pulse Ox O2 Delivery O2 Flow Rate FiO2 03/19/19 10:15 98.0 90 16 142/71 (94) 92 Room Air 98.0 03/19/19 09:57 2.0 I & 0 Intake and Output 03/19/19 07:00 Intake Total 720 ml Output Total 3800 ml Balance -3080 ml Intake Oral 720 ml Output Urine Total 3800 ml PHYSICAL EXAM Physical Exam GENERAL: mild short of breath HEEN: Om moist , On RA NECK: Supple. HEART: leonidas + CHEST: ABDOMEN: soft, nontender. NEUROLOGIC: grossly normal EXTREMITIES: trace bilat LE edema - No Eldridge SKIN No rash DIAGNOSIS/ASSESSMENT Assessment & Plan LEATHA - LEATHA vs at his baseline renal function Unremarkable US last month, UA unremarkable , good uop E-Lytes and acid base stable , No emergent indication for [employer] Supportive care, I/O, avoid nephrotoxins, monitor CKD stage 3 - Suspect sec to HTN and CHF Baseline unknown Hx of LEATHA's - at [facility] requiring HD x 2 ?November/Dec Hospitalized at [facility] Jan 2019 with BUN/Cr 130/ 6.5, renal function improved with Cr in 2's,he left AMA Has been advised OP fu with renal Acute respiratory failure with pneumonia/sepsis with associated CM/CHF Pneumonia/Aspiration - On Abx per ID Intermediate possibility of PE reported- defer to Primary HyperKalemia- at presentation, resolved Chronic pain syndrome chronic opioid and benzo use Cardiomyopathy: recent EF 30-35% On PO Lasix and Aldactone, cardiology consulted HTN: stable DM2 : per PCP CAD: PCI/BMS to LAD/RCA, clinically stable. Hx of Noncompliance COMMENT/RELEVANT DATA Meds Current Medications Medications (Trade) Dose Ordered Sig/Jerri Start Time Stop Time Status Last Admin Dose Admin Acetaminophen/ Hydrocodone Bitart (Lortab 10/325) 1 tab PRN Q6HRS PRN 03/17/19 18:45 03/19/19 08:27 1 TAB Acetaminophen/ Hydrocodone Bitart (Lortab 7.5/325) 1 tab PRN Q6HRS PRN 03/17/19 18:45 03/17/19 18:41 DC Amitriptyline HCl (Elavil) 100 mg QHS 03/17/19 21:00 UNV Aspirin (Children'S Aspirin) 324 mg 1X STAT 03/17/19 14:11 03/17/19 14:13 DC 03/17/19 14:31 324 MG Aspirin (Ecotrin) 81 mg DAILYWBKFT 03/17/19 19:30 03/19/19 08:27 81 MG Atorvastatin Calcium (Lipitor) 40 mg QHS 03/17/19 21:00 03/18/19 21:50 40 MG Calcium Gluconate (Calcium Gluconate) 1,000 mg 1X ONCE 03/17/19 16:20 03/17/19 16:21 DC 03/17/19 16:44 1,000 MG Cefepime HCl (Maxipime) 2 gm 1X ONCE 03/17/19 15:15 03/17/19 15:16 DC 03/17/19 15:47 2 GM Clopidogrel Bisulfate (Plavix) 75 mg DAILYWBKFT 03/17/19 19:30 03/19/19 08:27 75 MG Cyclobenzaprine HCl (Flexeril) 10 mg PRN TID PRN 03/17/19 18:30 03/19/19 12:11 10 MG Dextrose (Dextrose 50%-Water Syringe) 25 gm 1X STAT 03/17/19 15:27 03/17/19 15:32 DC 03/17/19 15:50 25 GM Doxycycline Hyclate (Vibra-Tab) 100 mg BID 03/18/19 09:00 03/19/19 08:27 100 MG Enoxaparin Sodium (Lovenox 100mg Syringe) 90 mg QHS 03/17/19 21:00 03/18/19 11:39 DC 03/17/19 21:15 90 MG Enoxaparin Sodium (Lovenox 40mg Syringe) 40 mg Q24H 03/18/19 15:00 03/18/19 15:08 40 MG Fentanyl Citrate (Fentanyl 2ml Vial) 75 mcg 1X ONCE 03/17/19 17:00 03/17/19 17:01 DC 03/17/19 17:05 75 MCG Furosemide (Lasix) 40 mg [id number] 03/17/19 19:00 03/19/19 08:28 40 MG Gabapentin (Neurontin) 300 mg BID 03/17/19 21:00 03/19/19 08:27 300 MG Glimepiride (Amaryl) 4 mg BID 03/17/19 21:00 03/19/19 08:28 4 MG Info (Anti-Coagulation Monitoring By Pharmacy) 1 each PRN DAILY PRN 03/18/19 08:30 03/18/19 09:01 1 EACH Insulin Human Regular (HumuLIN R VIAL) 10 unit 1X STAT 03/17/19 15:27 03/17/19 15:32 DC 03/17/19 15:53 10 UNIT Labetalol HCl (Trandate) 100 mg BID 03/17/19 21:00 03/19/19 08:29 100 MG Lactobacillus Rhamnosus (Culturelle) 1 cap BID 03/18/19 21:00 03/19/19 08:28 1 CAP Levofloxacin/ Dextrose 150 ml @ 100 mls/hr 1X ONCE 03/17/19 15:15 03/17/19 16:44 DC 03/17/19 15:52 100 MLS/HR Linagliptin (Tradjenta) 5 mg DAILY 03/17/19 19:30 03/19/19 08:29 5 MG Linezolid (Zyvox) 600 mg BID 03/18/19 09:00 03/19/19 08:28 600 MG Non-Formulary Medication ([Aspirin] ) 325 mg DAILYWBKFT 03/18/19 08:00 UNV Pantoprazole Sodium (Protonix) 40 mg 1X ONCE 03/18/19 10:30 03/18/19 10:31 DC Piperacillin Sod/ Tazobactam Sod (Zosyn Per Pharmacy) 1 each PRN DAILY PRN 03/18/19 08:45 Piperacillin Sod/ Tazobactam Sod 3.375 gm/Sodium Chloride 50 ml @ 100 mls/hr Q6HRS 03/18/19 09:00 03/19/19 12:10 100 MLS/HR Ropinirole HCl (Requip) 0.5 mg QHS 03/17/19 21:00 03/18/19 21:49 0.5 MG Sacubitril/ Valsartan (Entresto 49 Mg-51 Mg) 2 tab BID 03/17/19 21:00 03/19/19 08:28 2 TAB Sodium Polystyrene Sulfonate (Kayexalate) 15 gm 1X STAT 03/17/19 15:27 03/17/19 15:32 DC 03/17/19 15:50 15 GM Spironolactone (Aldactone) 25 mg DAILY 03/17/19 19:30 03/19/19 08:27 25 MG Temazepam (Restoril) 30 mg QHS 03/17/19 21:00 03/18/19 21:49 30 MG Trazodone HCl (Desyrel) 50 mg QHS 03/17/19 21:00 03/18/19 21:50 50 MG Vancomycin HCl 2 gm/Sodium Chloride 500 ml @ 250 mls/hr 1X ONCE 03/17/19 16:00 03/17/19 17:59 DC 03/17/19 18:44 250 MLS/HR Lab Laboratory Tests Test 03/18/19 17:08 03/18/19 17:43 03/18/19 20:55 03/19/19 07:14 Glucose (Fingerstick) 125 mg/dL (70-99) 128 mg/dL (70-99) 100 mg/dL (70-99) Urine Opiates Screen Pos (NEG) Urine Methadone Screen Neg (NEG) Urine Barbiturates Neg (NEG) Urine Phencyclidine Screen Neg (NEG) Urine Amphetamine/Methamphetamine Neg (NEG) Urine Benzodiazepines Screen Neg (NEG) Urine Cocaine Screen Neg (NEG) Urine Cannabinoids Screen Neg (NEG) Urine Ethyl Alcohol Neg (NEG) Test 03/19/19 10:44 03/19/19 11:44 White Blood Count 14.4 x10^3/uL (4.0-11.0) Red Blood Count 4.36 x10^6/uL (4.30-5.70) Hemoglobin 12.5 g/dL (13.0-17.5) Hematocrit 37.4 % (39.0-53.0) Mean Corpuscular Volume 86 fL (79-100) Mean Corpuscular Hemoglobin 29 pg (25-35) Mean Corpuscular Hemoglobin Concent 33 g/dL (31-37) Red Cell Distribution Width 14.8 % (11.5-14.5) Platelet Count 165 x10^3/uL (140-400) Neutrophils (%) (Auto) 86 % (31-73) Lymphocytes (%) (Auto) 7 % (24-48) Monocytes (%) (Auto) 5 % (0-9) Eosinophils (%) (Auto) 2 % (0-3) Basophils (%) (Auto) 0 % (0-3) Neutrophils # (Auto) 12.3 x10^3/uL (1.8-7.7) Lymphocytes # (Auto) 1.0 x10^3/uL (1.0-4.8) Monocytes # (Auto) 0.8 x10^3/uL (0.0-1.1) Eosinophils # (Auto) 0.3 x10^3/uL (0.0-0.7) Basophils # (Auto) 0.0 x10^3/uL (0.0-0.2) Sodium Level 140 mmol/L (136-145) Potassium Level 4.6 mmol/L (3.5-5.1) Chloride Level 104 mmol/L (98-107) Carbon Dioxide Level 26 mmol/L (21-32) Anion Gap 10 (6-14) Blood Urea Nitrogen 47 mg/dL (8-26) Creatinine 3.0 mg/dL (0.7-1.3) Estimated GFR (Cockcroft-Gault) 22.1 Glucose Level 94 mg/dL (70-99) Calcium Level 8.6 mg/dL (8.5-10.1) Glucose (Fingerstick) 122 mg/dL (70-99) Results All relevant outside records, renal labs, imaging studies, telemetry/EKG's were reviewed. MARTIN ESTEVEZ MD Mar 19, 2019 13:52
[2019-03-19 15:00] VITALS: BP 143/95
[2019-03-19] MEDS: ENOXAPARIN 40 MG/0.4 ML SYRINGE. SQ SCH (15:00)
[2019-03-19] MEDS ORDERED: ENOXAPARIN 40 MG/0.4 ML SYRINGE. SQ ONE (15:45)
[2019-03-19] MEDS ORDERED: PIPERACILLIN/TAZOBACTAM 3.375 GM VIAL IV ONE (15:45)
[2019-03-19] MEDS ORDERED: FUROSEMIDE 40 MG TABLET. ONE (15:45)
[2019-03-19] MEDS ORDERED: PANTOPRAZOLE 40 MG TABLET.DR. PO ONE (15:45)
[2019-03-19 19:10] VITALS: BP 189/99
[2019-03-19] MEDS: traZODone 50 MG TABLET. PO SCH (20:27)
[2019-03-19] MEDS: rOPINIRole 0.25 MG TABLET. PO SCH (20:28)
[2019-03-19] MEDS: ATORVASTATIN CALCIUM 40 MG TABLET. PO SCH (20:28)
[2019-03-19 23:00] VITALS: BP 174/101
[2019-03-19] MEDS: TEMAZEPAM 15 MG CAPSULE PO SCH (23:12)
[2019-03-19] MEDS ORDERED: amLODIPine BESYLATE 5 MG TABLET PO ONE (23:30)
[2019-03-20] MEDS: HYDROcodone/APAP 10/325 1 TAB TABLET PO PRN ×4 (02:57→22:57)
[2019-03-20 03:12] VITALS: BP 160/90
[2019-03-20 05:26] LABS: BASO % 0 % (0-3); EOS # 0.2 x10^3/uL (0.0-0.7); EOS % 1 % (0-3); HEMATOCRIT 39.4 % (39.0-53.0); HEMOGLOBIN 13.2 g/dL (13.0-17.5); LYMPH # 0.7 x10^3/uL (1.0-4.8); LYMPH % 4 % (24-48); MEAN CORPUSCULAR HEMOGLOBIN 29 pg (25-35); MEAN CORPUSCULAR HGB CONC 34 g/dL (31-37); MEAN CORPUSCULAR VOLUME 86 fL (79-100); MONO # 0.9 x10^3/uL (0.0-1.1); MONO % 5 % (0-9); NEUT # 15.2 x10^3/uL (1.8-7.7); NEUT % 89 % (31-73); PLATELET COUNT 204 x10^3/uL (140-400); RED BLOOD COUNT 4.58 x10^6/uL (4.30-5.70); RED CELL DISTRIBUTION WIDTH 14.9 % (11.5-14.5)
[2019-03-20 05:45] LABS: CALCIUM 9.1 mg/dL (8.5-10.1); CREATININE 2.9 mg/dL (0.7-1.3); POTASSIUM 4.9 mmol/L (3.5-5.1)
[2019-03-20] MEDS: PIPERACILLIN/TAZOBACTAM 3.375 GM in IV NORMAL SALINE 50ML 50 ML IV SCH ×4 (06:35→22:56)
[2019-03-20 07:00] VITALS: BP 152/92
--- NOTE | 2019-03-20 07:32 | PDOC ---
PULMONARY PROGRESS NOTES Subjective sob better, has occ cough, has back pain Vitals Vital Signs Date Time Temp Pulse Resp B/P (MAP) Pulse Ox O2 Delivery O2 Flow Rate FiO2 03/20/19 03:57 Room Air 03/20/19 03:12 98.0 99 22 160/90 (113) 94 98.0 03/19/19 09:57 2.0 ROS: No Nausea, No Chest Pain, No Abdominal Pain, No Increase Cough General: Alert Lungs: Clear Cardiovascular: S1, S2 Abdomen: Soft, Non-tender Neuro Exam: Alert Extremities: No Edema Skin: Warm Labs Laboratory Tests Test 03/18/19 08:05 03/18/19 11:48 03/18/19 17:08 03/18/19 17:43 White Blood Count 15.7 x10^3/uL (4.0-11.0) Red Blood Count 4.11 x10^6/uL (4.30-5.70) Hemoglobin 11.8 g/dL (13.0-17.5) Hematocrit 35.8 % (39.0-53.0) Mean Corpuscular Volume 87 fL (79-100) Mean Corpuscular Hemoglobin 29 pg (25-35) Mean Corpuscular Hemoglobin Concent 33 g/dL (31-37) Red Cell Distribution Width 15.2 % (11.5-14.5) Platelet Count 148 x10^3/uL (140-400) Neutrophils (%) (Auto) 89 % (31-73) Lymphocytes (%) (Auto) 5 % (24-48) Monocytes (%) (Auto) 5 % (0-9) Eosinophils (%) (Auto) 0 % (0-3) Basophils (%) (Auto) 0 % (0-3) Neutrophils # (Auto) 13.9 x10^3/uL (1.8-7.7) Lymphocytes # (Auto) 0.8 x10^3/uL (1.0-4.8) Monocytes # (Auto) 0.8 x10^3/uL (0.0-1.1) Eosinophils # (Auto) 0.1 x10^3/uL (0.0-0.7) Basophils # (Auto) 0.0 x10^3/uL (0.0-0.2) Sodium Level 140 mmol/L (136-145) Potassium Level 4.7 mmol/L (3.5-5.1) Chloride Level 106 mmol/L (98-107) Carbon Dioxide Level 25 mmol/L (21-32) Anion Gap 9 (6-14) Blood Urea Nitrogen 48 mg/dL (8-26) Creatinine 2.7 mg/dL (0.7-1.3) Estimated GFR (Cockcroft-Gault) 24.9 BUN/Creatinine Ratio 18 (6-20) Glucose Level 165 mg/dL (70-99) Calcium Level 8.7 mg/dL (8.5-10.1) Total Bilirubin 0.4 mg/dL (0.2-1.0) Aspartate Amino Transf (AST/SGOT) 13 U/L (15-37) Alanine Aminotransferase (ALT/SGPT) 11 U/L (16-63) Alkaline Phosphatase 65 U/L (46-116) Troponin I Quantitative 0.282 ng/mL (0.000-0.055) Total Protein 6.1 g/dL (6.4-8.2) Albumin 2.4 g/dL (3.4-5.0) Albumin/Globulin Ratio 0.6 (1.0-1.7) Glucose (Fingerstick) 106 mg/dL (70-99) 125 mg/dL (70-99) Urine Opiates Screen Pos (NEG) Urine Methadone Screen Neg (NEG) Urine Barbiturates Neg (NEG) Urine Phencyclidine Screen Neg (NEG) Urine Amphetamine/Methamphetamine Neg (NEG) Urine Benzodiazepines Screen Neg (NEG) Urine Cocaine Screen Neg (NEG) Urine Cannabinoids Screen Neg (NEG) Urine Ethyl Alcohol Neg (NEG) Test 03/18/19 20:55 03/19/19 07:14 03/19/19 10:44 03/19/19 11:44 Glucose (Fingerstick) 128 mg/dL (70-99) 100 mg/dL (70-99) 122 mg/dL (70-99) White Blood Count 14.4 x10^3/uL (4.0-11.0) Red Blood Count 4.36 x10^6/uL (4.30-5.70) Hemoglobin 12.5 g/dL (13.0-17.5) Hematocrit 37.4 % (39.0-53.0) Mean Corpuscular Volume 86 fL (79-100) Mean Corpuscular Hemoglobin 29 pg (25-35) Mean Corpuscular Hemoglobin Concent 33 g/dL (31-37) Red Cell Distribution Width 14.8 % (11.5-14.5) Platelet Count 165 x10^3/uL (140-400) Neutrophils (%) (Auto) 86 % (31-73) Lymphocytes (%) (Auto) 7 % (24-48) Monocytes (%) (Auto) 5 % (0-9) Eosinophils (%) (Auto) 2 % (0-3) Basophils (%) (Auto) 0 % (0-3) Neutrophils # (Auto) 12.3 x10^3/uL (1.8-7.7) Lymphocytes # (Auto) 1.0 x10^3/uL (1.0-4.8) Monocytes # (Auto) 0.8 x10^3/uL (0.0-1.1) Eosinophils # (Auto) 0.3 x10^3/uL (0.0-0.7) Basophils # (Auto) 0.0 x10^3/uL (0.0-0.2) Sodium Level 140 mmol/L (136-145) Potassium Level 4.6 mmol/L (3.5-5.1) Chloride Level 104 mmol/L (98-107) Carbon Dioxide Level 26 mmol/L (21-32) Anion Gap 10 (6-14) Blood Urea Nitrogen 47 mg/dL (8-26) Creatinine 3.0 mg/dL (0.7-1.3) Estimated GFR (Cockcroft-Gault) 22.1 Glucose Level 94 mg/dL (70-99) Calcium Level 8.6 mg/dL (8.5-10.1) Test 03/19/19 17:21 03/19/19 20:40 03/20/19 04:40 Glucose (Fingerstick) 151 mg/dL (70-99) 91 mg/dL (70-99) White Blood Count 17.0 x10^3/uL (4.0-11.0) Red Blood Count 4.58 x10^6/uL (4.30-5.70) Hemoglobin 13.2 g/dL (13.0-17.5) Hematocrit 39.4 % (39.0-53.0) Mean Corpuscular Volume 86 fL (79-100) Mean Corpuscular Hemoglobin 29 pg (25-35) Mean Corpuscular Hemoglobin Concent 34 g/dL (31-37) Red Cell Distribution Width 14.9 % (11.5-14.5) Platelet Count 204 x10^3/uL (140-400) Neutrophils (%) (Auto) 89 % (31-73) Lymphocytes (%) (Auto) 4 % (24-48) Monocytes (%) (Auto) 5 % (0-9) Eosinophils (%) (Auto) 1 % (0-3) Basophils (%) (Auto) 0 % (0-3) Neutrophils # (Auto) 15.2 x10^3/uL (1.8-7.7) Lymphocytes # (Auto) 0.7 x10^3/uL (1.0-4.8) Monocytes # (Auto) 0.9 x10^3/uL (0.0-1.1) Eosinophils # (Auto) 0.2 x10^3/uL (0.0-0.7) Basophils # (Auto) 0.0 x10^3/uL (0.0-0.2) Sodium Level 137 mmol/L (136-145) Potassium Level 4.9 mmol/L (3.5-5.1) Chloride Level 100 mmol/L (98-107) Carbon Dioxide Level 27 mmol/L (21-32) Anion Gap 10 (6-14) Blood Urea Nitrogen 49 mg/dL (8-26) Creatinine 2.9 mg/dL (0.7-1.3) Estimated GFR (Cockcroft-Gault) 23.0 Glucose Level 76 mg/dL (70-99) Calcium Level 9.1 mg/dL (8.5-10.1) Laboratory Tests Test 03/19/19 10:44 03/19/19 11:44 03/19/19 17:21 03/19/19 20:40 White Blood Count 14.4 x10^3/uL (4.0-11.0) Red Blood Count 4.36 x10^6/uL (4.30-5.70) Hemoglobin 12.5 g/dL (13.0-17.5) Hematocrit 37.4 % (39.0-53.0) Mean Corpuscular Volume 86 fL (79-100) Mean Corpuscular Hemoglobin 29 pg (25-35) Mean Corpuscular Hemoglobin Concent 33 g/dL (31-37) Red Cell Distribution Width 14.8 % (11.5-14.5) Platelet Count 165 x10^3/uL (140-400) Neutrophils (%) (Auto) 86 % (31-73) Lymphocytes (%) (Auto) 7 % (24-48) Monocytes (%) (Auto) 5 % (0-9) Eosinophils (%) (Auto) 2 % (0-3) Basophils (%) (Auto) 0 % (0-3) Neutrophils # (Auto) 12.3 x10^3/uL (1.8-7.7) Lymphocytes # (Auto) 1.0 x10^3/uL (1.0-4.8) Monocytes # (Auto) 0.8 x10^3/uL (0.0-1.1) Eosinophils # (Auto) 0.3 x10^3/uL (0.0-0.7) Basophils # (Auto) 0.0 x10^3/uL (0.0-0.2) Sodium Level 140 mmol/L (136-145) Potassium Level 4.6 mmol/L (3.5-5.1) Chloride Level 104 mmol/L (98-107) Carbon Dioxide Level 26 mmol/L (21-32) Anion Gap 10 (6-14) Blood Urea Nitrogen 47 mg/dL (8-26) Creatinine 3.0 mg/dL (0.7-1.3) Estimated GFR (Cockcroft-Gault) 22.1 Glucose Level 94 mg/dL (70-99) Calcium Level 8.6 mg/dL (8.5-10.1) Glucose (Fingerstick) 122 mg/dL (70-99) 151 mg/dL (70-99) 91 mg/dL (70-99) Test 03/20/19 04:40 White Blood Count 17.0 x10^3/uL (4.0-11.0) Red Blood Count 4.58 x10^6/uL (4.30-5.70) Hemoglobin 13.2 g/dL (13.0-17.5) Hematocrit 39.4 % (39.0-53.0) Mean Corpuscular Volume 86 fL (79-100) Mean Corpuscular Hemoglobin 29 pg (25-35) Mean Corpuscular Hemoglobin Concent 34 g/dL (31-37) Red Cell Distribution Width 14.9 % (11.5-14.5) Platelet Count 204 x10^3/uL (140-400) Neutrophils (%) (Auto) 89 % (31-73) Lymphocytes (%) (Auto) 4 % (24-48) Monocytes (%) (Auto) 5 % (0-9) Eosinophils (%) (Auto) 1 % (0-3) Basophils (%) (Auto) 0 % (0-3) Neutrophils # (Auto) 15.2 x10^3/uL (1.8-7.7) Lymphocytes # (Auto) 0.7 x10^3/uL (1.0-4.8) Monocytes # (Auto) 0.9 x10^3/uL (0.0-1.1) Eosinophils # (Auto) 0.2 x10^3/uL (0.0-0.7) Basophils # (Auto) 0.0 x10^3/uL (0.0-0.2) Sodium Level 137 mmol/L (136-145) Potassium Level 4.9 mmol/L (3.5-5.1) Chloride Level 100 mmol/L (98-107) Carbon Dioxide Level 27 mmol/L (21-32) Anion Gap 10 (6-14) Blood Urea Nitrogen 49 mg/dL (8-26) Creatinine 2.9 mg/dL (0.7-1.3) Estimated GFR (Cockcroft-Gault) 23.0 Glucose Level 76 mg/dL (70-99) Calcium Level 9.1 mg/dL (8.5-10.1) Medications Active Scripts Medications Dose Route/Sig Max Daily Dose Days Date Category Labetalol Hcl 100 Mg Tablet 1 Tab PO BID 03/17/19 Reported Protonix (Pantoprazole Sodium) 20 Mg Tablet.dr 2 Tab PO BID 02/11/19 Reported Entresto 97 mg-103 mg Tablet (Sacubitril/Valsartan) 1 Each Tablet 1 Each PO BID 02/11/19 Reported Gabapentin 300 Mg Capsule 300 Mg PO BID 02/11/19 Reported Temazepam 30 Mg Capsule 1 Cap PO QHS 02/11/19 Reported Potassium Chloride 20 Meq Tablet.er 20 Meq PO DAILY 02/11/19 Reported Spironolactone 25 Mg Tablet 1 Tab PO DAILY 02/11/19 Reported Cyclobenzaprine Hcl 10 Mg Tablet 1 Tab PO TID PRN 02/11/19 Reported Trazodone Hcl 50 Mg Tablet 1 Tab PO QHS 03/19/18 Rx Furosemide 40 Mg Tablet 40 Mg PO [id number] 03/19/18 Rx Aspirin Ec (Aspirin) 81 Mg Tablet.dr 81 Mg PO DAILYWBKFT 60 03/19/18 Rx Atorvastatin Calcium 40 Mg Tablet 40 Mg PO QHS 30 03/19/18 Rx Glimepiride 4 Mg Tablet 1 Tab PO BID 03/19/18 Rx Plavix (Clopidogrel Bisulfate) 75 Mg Tablet 75 Mg PO [id number] 03/04/15 Rx [Aspirin] 325 MG Tablet 325 Mg PO DAILYWBKFT 03/04/15 Rx Januvia (Sitagliptin Phosphate) 100 Mg Tablet 1 Tab PO DAILY 11/18/14 Rx Ropinirole Hcl 2 Mg Tablet 0.5 Mg PO QHS 07/22/14 Reported Hydrocodone-Apap 10-300 (Hydrocodone Bit/Acetaminophen) 1 Each Tablet 1 Tab PO Q6HRS PRN 07/22/14 Reported Amitriptyline Hcl 100 Mg Tablet 1 Tab PO QHS 07/22/14 Reported Impression . IMPRESSION: 1. Abnormal x-ray compatible with pneumonia, suspect gram-negative, possibly gram-positive. 2. Possible aspiration pneumonia. 3. Acute hypoxemic respiratory failure. 4. Elevated D-dimer, nonspecific, suspect secondary to infection. 5. Acute on chronic kidney disease. 6. Type 2 diabetes. 7. Acute on chronic diastolic and systolic congestive heart failure, the patient with ejection fraction of 15%. 8. Abnormal V/Q scan compatible with the patient's pneumonia. clinical suspicion for pe is low. No need for anticoagulation. Plan . ORAL ANTIBX PER ID increase activity protonix, lovenox for prophylaxis ok to dc from pulm standpoint discussed w DELFINA Martins MD Mar 20, 2019 07:32
[2019-03-20] MEDS: SPIRONOLACTONE 25 MG TABLET PO SCH (08:39)
[2019-03-20] MEDS: SACUBITRIL/VALSARTAN 49/51MG TABLET. PO SCH ×2 (08:39→21:12)
[2019-03-20] MEDS: LACTOBACILLUS RHAMNOSUS GG 1 CAPSULE. PO SCH ×2 (08:40→21:11)
[2019-03-20] MEDS: CLOPIDOGREL BISULFATE 75 MG TABLET PO SCH (08:40)
[2019-03-20] MEDS: DOXYCYCLINE HYCLATE 100 MG TABLET PO SCH ×2 (08:40→21:11)
[2019-03-20] MEDS: PANTOPRAZOLE 40 MG TABLET.DR. PO SCH ×2 (08:40→17:10)
[2019-03-20] MEDS: LINAGLIPTIN 5 MG TABLET PO SCH (08:40)
[2019-03-20] MEDS: GLIMEPIRIDE 2 MG TABLET. PO SCH ×2 (08:40→21:12)
[2019-03-20] MEDS: FUROSEMIDE 40 MG TABLET. PO SCH ×2 (08:40→17:09)
[2019-03-20] MEDS: LINEZOLID 600 MG TABLET PO SCH ×2 (08:40→21:11)
[2019-03-20] MEDS: GABAPENTIN 300 MG CAPSULE. PO SCH ×2 (08:40→21:11)
[2019-03-20] MEDS: LABETALOL HCL 100 MG TABLET. PO SCH ×2 (08:41→21:11)
[2019-03-20] MEDS: ASPIRIN ENTERIC COATED 81 MG TABLET.DR. PO SCH (08:42)
[2019-03-20] MEDS ORDERED: amLODIPine BESYLATE 5 MG TABLET PO SCH (09:00)
--- NOTE | 2019-03-20 09:05 | PDOC ---
PROGRESS NOTES History of Present Illness History of Present Illness ASSESSMENT Pneumonia, POSSIBLE ASPIRATION New extensive left lung infiltrate with a smaller area of right medial basilar infiltrate. acute respiratory failure, hyperkalemia, elevated troponin, DEMAND ISCHEMIA chronic renal insufficiency sepsis elevated lactic acid NO PE obesity Hx of cocaine abuse: recently noted on 03/01 [facility] RECENT ECHO The left ventricular systolic function is moderately impaired. The Ejection Fraction is 30-35%. Transmitral Doppler flow pattern is Grade I-abnormal relaxation pattern. admitted. IV antibiotics. cont Zosyn and Zyvox. cont doxycycline for atypical coverage. blood culture Consult Infectious Disease, consult Pulmonary. DuoNebs, oxygen support, home meds, DVT prophylaxis, full code, consult Dr. Martinez., nephrology CARDIOLOGY CONSULT 27 Min pt exam, chart review, > 50% of time spent with exam, chart review, pt care coordination Vitals Vitals Vital Signs Date Time Temp Pulse Resp B/P (MAP) Pulse Ox O2 Delivery O2 Flow Rate FiO2 03/20/19 08:41 103 103/92 03/20/19 08:39 18 94 Room Air 2.0 03/20/19 03:12 98.0 98.0 Physical Exam Physical Exam GENERAL: Alert and oriented x 3, male, in no acute distress. HEENT: Normocephalic, atraumatic, anicteric. No thrush. Oral mucosa moist. NECK: Supple, no JVD. LUNGS: Decreased breath sounds. No expiratory wheezing on the left and the right lung base. HEART: S1, S2. No gallops or murmurs. ABDOMEN: Soft, nontender, nondistended. EXTREMITIES: No edema, no cyanosis. NEUROLOGIC: Alert and oriented x 3, grossly nonfocal. PSYCHIATRIC: Cooperative, appropriate mood and affect. DERMATOLOGIC: Warm, dry, no generalized rash. Multiple tattoos. General: mild distress Heart: Regular rate Lungs: Clear, Crackles Abdomen: Normal bowel sounds Extremities: No cyanosis Skin: No breakdown, No significant lesion Labs LABS Laboratory Tests Test 03/19/19 10:44 03/19/19 11:44 03/19/19 17:21 03/19/19 20:40 White Blood Count 14.4 x10^3/uL (4.0-11.0) Red Blood Count 4.36 x10^6/uL (4.30-5.70) Hemoglobin 12.5 g/dL (13.0-17.5) Hematocrit 37.4 % (39.0-53.0) Mean Corpuscular Volume 86 fL (79-100) Mean Corpuscular Hemoglobin 29 pg (25-35) Mean Corpuscular Hemoglobin Concent 33 g/dL (31-37) Red Cell Distribution Width 14.8 % (11.5-14.5) Platelet Count 165 x10^3/uL (140-400) Neutrophils (%) (Auto) 86 % (31-73) Lymphocytes (%) (Auto) 7 % (24-48) Monocytes (%) (Auto) 5 % (0-9) Eosinophils (%) (Auto) 2 % (0-3) Basophils (%) (Auto) 0 % (0-3) Neutrophils # (Auto) 12.3 x10^3/uL (1.8-7.7) Lymphocytes # (Auto) 1.0 x10^3/uL (1.0-4.8) Monocytes # (Auto) 0.8 x10^3/uL (0.0-1.1) Eosinophils # (Auto) 0.3 x10^3/uL (0.0-0.7) Basophils # (Auto) 0.0 x10^3/uL (0.0-0.2) Sodium Level 140 mmol/L (136-145) Potassium Level 4.6 mmol/L (3.5-5.1) Chloride Level 104 mmol/L (98-107) Carbon Dioxide Level 26 mmol/L (21-32) Anion Gap 10 (6-14) Blood Urea Nitrogen 47 mg/dL (8-26) Creatinine 3.0 mg/dL (0.7-1.3) Estimated GFR (Cockcroft-Gault) 22.1 Glucose Level 94 mg/dL (70-99) Calcium Level 8.6 mg/dL (8.5-10.1) Glucose (Fingerstick) 122 mg/dL (70-99) 151 mg/dL (70-99) 91 mg/dL (70-99) Test 03/20/19 04:40 03/20/19 07:38 White Blood Count 17.0 x10^3/uL (4.0-11.0) Red Blood Count 4.58 x10^6/uL (4.30-5.70) Hemoglobin 13.2 g/dL (13.0-17.5) Hematocrit 39.4 % (39.0-53.0) Mean Corpuscular Volume 86 fL (79-100) Mean Corpuscular Hemoglobin 29 pg (25-35) Mean Corpuscular Hemoglobin Concent 34 g/dL (31-37) Red Cell Distribution Width 14.9 % (11.5-14.5) Platelet Count 204 x10^3/uL (140-400) Neutrophils (%) (Auto) 89 % (31-73) Lymphocytes (%) (Auto) 4 % (24-48) Monocytes (%) (Auto) 5 % (0-9) Eosinophils (%) (Auto) 1 % (0-3) Basophils (%) (Auto) 0 % (0-3) Neutrophils # (Auto) 15.2 x10^3/uL (1.8-7.7) Lymphocytes # (Auto) 0.7 x10^3/uL (1.0-4.8) Monocytes # (Auto) 0.9 x10^3/uL (0.0-1.1) Eosinophils # (Auto) 0.2 x10^3/uL (0.0-0.7) Basophils # (Auto) 0.0 x10^3/uL (0.0-0.2) Sodium Level 137 mmol/L (136-145) Potassium Level 4.9 mmol/L (3.5-5.1) Chloride Level 100 mmol/L (98-107) Carbon Dioxide Level 27 mmol/L (21-32) Anion Gap 10 (6-14) Blood Urea Nitrogen 49 mg/dL (8-26) Creatinine 2.9 mg/dL (0.7-1.3) Estimated GFR (Cockcroft-Gault) 23.0 Glucose Level 76 mg/dL (70-99) Calcium Level 9.1 mg/dL (8.5-10.1) Glucose (Fingerstick) 79 mg/dL (70-99) Assessment and Plan Assessmemt and Plan Problems Medical Problems: (1) D-dimer, elevated Status: Acute (2) Elevated troponin Status: Acute (3) Hyperkalemia Status: Acute (4) Pneumonia Status: Acute (5) Sepsis Status: Acute Comment Review of Relevant I have reviewed the following items gavin (where applicable) has been applied. Labs Laboratory Tests Test 03/18/19 11:48 03/18/19 17:08 03/18/19 17:43 03/18/19 20:55 Glucose (Fingerstick) 106 mg/dL (70-99) 125 mg/dL (70-99) 128 mg/dL (70-99) Urine Opiates Screen Pos (NEG) Urine Methadone Screen Neg (NEG) Urine Barbiturates Neg (NEG) Urine Phencyclidine Screen Neg (NEG) Urine Amphetamine/Methamphetamine Neg (NEG) Urine Benzodiazepines Screen Neg (NEG) Urine Cocaine Screen Neg (NEG) Urine Cannabinoids Screen Neg (NEG) Urine Ethyl Alcohol Neg (NEG) Test 03/19/19 07:14 03/19/19 10:44 03/19/19 11:44 03/19/19 17:21 Glucose (Fingerstick) 100 mg/dL (70-99) 122 mg/dL (70-99) 151 mg/dL (70-99) White Blood Count 14.4 x10^3/uL (4.0-11.0) Red Blood Count 4.36 x10^6/uL (4.30-5.70) Hemoglobin 12.5 g/dL (13.0-17.5) Hematocrit 37.4 % (39.0-53.0) Mean Corpuscular Volume 86 fL (79-100) Mean Corpuscular Hemoglobin 29 pg (25-35) Mean Corpuscular Hemoglobin Concent 33 g/dL (31-37) Red Cell Distribution Width 14.8 % (11.5-14.5) Platelet Count 165 x10^3/uL (140-400) Neutrophils (%) (Auto) 86 % (31-73) Lymphocytes (%) (Auto) 7 % (24-48) Monocytes (%) (Auto) 5 % (0-9) Eosinophils (%) (Auto) 2 % (0-3) Basophils (%) (Auto) 0 % (0-3) Neutrophils # (Auto) 12.3 x10^3/uL (1.8-7.7) Lymphocytes # (Auto) 1.0 x10^3/uL (1.0-4.8) Monocytes # (Auto) 0.8 x10^3/uL (0.0-1.1) Eosinophils # (Auto) 0.3 x10^3/uL (0.0-0.7) Basophils # (Auto) 0.0 x10^3/uL (0.0-0.2) Sodium Level 140 mmol/L (136-145) Potassium Level 4.6 mmol/L (3.5-5.1) Chloride Level 104 mmol/L (98-107) Carbon Dioxide Level 26 mmol/L (21-32) Anion Gap 10 (6-14) Blood Urea Nitrogen 47 mg/dL (8-26) Creatinine 3.0 mg/dL (0.7-1.3) Estimated GFR (Cockcroft-Gault) 22.1 Glucose Level 94 mg/dL (70-99) Calcium Level 8.6 mg/dL (8.5-10.1) Test 03/19/19 20:40 03/20/19 04:40 03/20/19 07:38 Glucose (Fingerstick) 91 mg/dL (70-99) 79 mg/dL (70-99) White Blood Count 17.0 x10^3/uL (4.0-11.0) Red Blood Count 4.58 x10^6/uL (4.30-5.70) Hemoglobin 13.2 g/dL (13.0-17.5) Hematocrit 39.4 % (39.0-53.0) Mean Corpuscular Volume 86 fL (79-100) Mean Corpuscular Hemoglobin 29 pg (25-35) Mean Corpuscular Hemoglobin Concent 34 g/dL (31-37) Red Cell Distribution Width 14.9 % (11.5-14.5) Platelet Count 204 x10^3/uL (140-400) Neutrophils (%) (Auto) 89 % (31-73) Lymphocytes (%) (Auto) 4 % (24-48) Monocytes (%) (Auto) 5 % (0-9) Eosinophils (%) (Auto) 1 % (0-3) Basophils (%) (Auto) 0 % (0-3) Neutrophils # (Auto) 15.2 x10^3/uL (1.8-7.7) Lymphocytes # (Auto) 0.7 x10^3/uL (1.0-4.8) Monocytes # (Auto) 0.9 x10^3/uL (0.0-1.1) Eosinophils # (Auto) 0.2 x10^3/uL (0.0-0.7) Basophils # (Auto) 0.0 x10^3/uL (0.0-0.2) Sodium Level 137 mmol/L (136-145) Potassium Level 4.9 mmol/L (3.5-5.1) Chloride Level 100 mmol/L (98-107) Carbon Dioxide Level 27 mmol/L (21-32) Anion Gap 10 (6-14) Blood Urea Nitrogen 49 mg/dL (8-26) Creatinine 2.9 mg/dL (0.7-1.3) Estimated GFR (Cockcroft-Gault) 23.0 Glucose Level 76 mg/dL (70-99) Calcium Level 9.1 mg/dL (8.5-10.1) Laboratory Tests Test 03/19/19 10:44 03/19/19 11:44 03/19/19 17:21 03/19/19 20:40 White Blood Count 14.4 x10^3/uL (4.0-11.0) Red Blood Count 4.36 x10^6/uL (4.30-5.70) Hemoglobin 12.5 g/dL (13.0-17.5) Hematocrit 37.4 % (39.0-53.0) Mean Corpuscular Volume 86 fL (79-100) Mean Corpuscular Hemoglobin 29 pg (25-35) Mean Corpuscular Hemoglobin Concent 33 g/dL (31-37) Red Cell Distribution Width 14.8 % (11.5-14.5) Platelet Count 165 x10^3/uL (140-400) Neutrophils (%) (Auto) 86 % (31-73) Lymphocytes (%) (Auto) 7 % (24-48) Monocytes (%) (Auto) 5 % (0-9) Eosinophils (%) (Auto) 2 % (0-3) Basophils (%) (Auto) 0 % (0-3) Neutrophils # (Auto) 12.3 x10^3/uL (1.8-7.7) Lymphocytes # (Auto) 1.0 x10^3/uL (1.0-4.8) Monocytes # (Auto) 0.8 x10^3/uL (0.0-1.1) Eosinophils # (Auto) 0.3 x10^3/uL (0.0-0.7) Basophils # (Auto) 0.0 x10^3/uL (0.0-0.2) Sodium Level 140 mmol/L (136-145) Potassium Level 4.6 mmol/L (3.5-5.1) Chloride Level 104 mmol/L (98-107) Carbon Dioxide Level 26 mmol/L (21-32) Anion Gap 10 (6-14) Blood Urea Nitrogen 47 mg/dL (8-26) Creatinine 3.0 mg/dL (0.7-1.3) Estimated GFR (Cockcroft-Gault) 22.1 Glucose Level 94 mg/dL (70-99) Calcium Level 8.6 mg/dL (8.5-10.1) Glucose (Fingerstick) 122 mg/dL (70-99) 151 mg/dL (70-99) 91 mg/dL (70-99) Test 03/20/19 04:40 03/20/19 07:38 White Blood Count 17.0 x10^3/uL (4.0-11.0) Red Blood Count 4.58 x10^6/uL (4.30-5.70) Hemoglobin 13.2 g/dL (13.0-17.5) Hematocrit 39.4 % (39.0-53.0) Mean Corpuscular Volume 86 fL (79-100) Mean Corpuscular Hemoglobin 29 pg (25-35) Mean Corpuscular Hemoglobin Concent 34 g/dL (31-37) Red Cell Distribution Width 14.9 % (11.5-14.5) Platelet Count 204 x10^3/uL (140-400) Neutrophils (%) (Auto) 89 % (31-73) Lymphocytes (%) (Auto) 4 % (24-48) Monocytes (%) (Auto) 5 % (0-9) Eosinophils (%) (Auto) 1 % (0-3) Basophils (%) (Auto) 0 % (0-3) Neutrophils # (Auto) 15.2 x10^3/uL (1.8-7.7) Lymphocytes # (Auto) 0.7 x10^3/uL (1.0-4.8) Monocytes # (Auto) 0.9 x10^3/uL (0.0-1.1) Eosinophils # (Auto) 0.2 x10^3/uL (0.0-0.7) Basophils # (Auto) 0.0 x10^3/uL (0.0-0.2) Sodium Level 137 mmol/L (136-145) Potassium Level 4.9 mmol/L (3.5-5.1) Chloride Level 100 mmol/L (98-107) Carbon Dioxide Level 27 mmol/L (21-32) Anion Gap 10 (6-14) Blood Urea Nitrogen 49 mg/dL (8-26) Creatinine 2.9 mg/dL (0.7-1.3) Estimated GFR (Cockcroft-Gault) 23.0 Glucose Level 76 mg/dL (70-99) Calcium Level 9.1 mg/dL (8.5-10.1) Glucose (Fingerstick) 79 mg/dL (70-99) Microbiology 03/17/19 Blood Culture - Preliminary, Resulted NO GROWTH AFTER 2 DAYS Medications Current Medications Aspirin (Children'S Aspirin) 324 mg 1X STAT PO Last administered on 03/17/19at 14:31; Start 03/17/19 at 14:11; Stop 03/17/19 at 14:13; Status DC Levofloxacin/ Dextrose 150 ml @ 100 mls/hr 1X ONCE IV Last administered on 03/17/19at 15:52; Start 03/17/19 at 15:15; Stop 03/17/19 at 16:44; Status DC Cefepime HCl (Maxipime) 2 gm 1X ONCE IVP Last administered on 03/17/19at 15:47; Start 03/17/19 at 15:15; Stop 03/17/19 at 15:16; Status DC Vancomycin HCl 2 gm/Sodium Chloride 500 ml @ 250 mls/hr 1X ONCE IV Last administered on 03/17/19at 18:44; Start 03/17/19 at 16:00; Stop 03/17/19 at 17:59; Status DC Calcium Gluconate (Calcium Gluconate) 1,000 mg 1X STAT IVP ; Start 03/17/19 at 15:27; Stop 03/17/19 at 15:28; Status UNV Calcium Gluconate (Calcium Gluconate) 1,000 mg 1X IVP Last administered on 03/17/19at 15:42; Start 03/17/19 at 15:35; Stop 03/18/19 at 08:42; Status DC Calcium Gluconate (Calcium Gluconate) 1,000 mg 1X IVP ; Start 03/17/19 at 15:40; Status UNV Insulin Human Regular (HumuLIN R VIAL) 10 unit 1X STAT IV Last administered on 03/17/19 15:53; Start 03/17/19 at 15:27; Stop 03/17/19 at 15:32; Status DC Dextrose (Dextrose 50%-Water Syringe) 25 gm 1X STAT IV Last administered on 03/17/19at 15:50; Start 03/17/19 at 15:27; Stop 03/17/19 at 15:32; Status DC Sodium Polystyrene Sulfonate (Kayexalate) 15 gm 1X STAT PO Last administered on 03/17/19 15:50; Start 03/17/19 at 15:27; Stop 03/17/19 at 15:32; Status DC Calcium Gluconate (Calcium Gluconate) 1,000 mg 1X ONCE IV Last administered on 03/17/19at 16:44; Start 03/17/19 at 16:15; Stop 03/17/19 at 16:16; Status DC Calcium Gluconate (Calcium Gluconate) 1,000 mg 1X ONCE IV Last administered on 03/17/19 16:44; Start 03/17/19 at 16:20; Stop 03/17/19 at 16:21; Status DC Fentanyl Citrate (Fentanyl 2ml Vial) 75 mcg 1X ONCE IV Last administered on 03/17/19 17:05; Start 03/17/19 at 17:00; Stop 03/17/19 at 17:01; Status DC Aspirin (Ecotrin) 81 mg DAILYWBKFT PO Last administered on 03/20/19 08:42; Start 03/17/19 at 19:30 Atorvastatin Calcium (Lipitor) 40 mg QHS PO Last administered on 03/19/19 20:28; Start 03/17/19 at 21:00 Clopidogrel Bisulfate (Plavix) 75 mg DAILYWBKFT PO Last administered on 03/20/19 08:40; Start 03/17/19 at 19:30 Cyclobenzaprine HCl (Flexeril) 10 mg PRN TID PRN PO MUSCLE SPASMS Last administered on 03/19/19 12:11; Start 03/17/19 at 18:30 Furosemide (Lasix) 40 mg BID94 PO Last administered on 03/20/19 08:40; Start 03/17/19 at 19:00 Gabapentin (Neurontin) 300 mg BID PO Last administered on 03/20/19 08:40; Start 03/17/19 at 21:00 Labetalol HCl (Trandate) 100 mg BID PO Last administered on 03/20/19 08:41; Start 03/17/19 at 21:00 Spironolactone (Aldactone) 25 mg DAILY PO Last administered on 03/20/19 08:39; Start 03/17/19 at 19:30 Temazepam (Restoril) 30 mg QHS PO Last administered on 03/19/19 23:12; Start 03/17/19 at 21:00 Trazodone HCl (Desyrel) 50 mg QHS PO Last administered on 03/19/19 20:27; Start 03/17/19 at 21:00 Amitriptyline HCl (Elavil) 100 mg QHS PO ; Start 03/17/19 at 21:00; Status UNV Glimepiride (Amaryl) 4 mg BID PO Last administered on 03/20/19 08:40; Start 03/17/19 at 21:00 Acetaminophen/ Hydrocodone Bitart (Lortab 7.5/325) 1 tab PRN Q6HRS PRN PO PAIN; Start 03/17/19 at 18:45; Stop 03/17/19 at 18:41; Status DC Pantoprazole Sodium (Protonix) 40 mg BIDAC PO Last administered on 03/20/19 08:40; Start 03/17/19 at 19:30 Ropinirole HCl (Requip) 0.5 mg QHS PO Last administered on 03/19/19 20:28; Start 03/17/19 at 21:00 Sacubitril/ Valsartan (Entresto 49 Mg-51 Mg) 2 tab BID PO Last administered on 03/20/19 08:39; Start 03/17/19 at 21:00 Linagliptin (Tradjenta) 5 mg DAILY PO Last administered on 03/20/19 08:40; Start 03/17/19 at 19:30 Non-Formulary Medication ([Aspirin] ) 325 mg DAILYWBKFT PO ; Start 03/18/19 at 08:00; Status UNV Acetaminophen/ Hydrocodone Bitart (Lortab 10325) 1 tab PRN Q6HRS PRN PO PAIN Last administered on 03/20/19at 08:39; Start 03/17/19 at 18:45 Enoxaparin Sodium (Lovenox 100mg Syringe) 90 mg QHS SQ Last administered on 03/17/19at 21:15; Start 03/17/19 at 21:00; Stop 03/18/19 at 11:39; Status DC Info (Anti-Coagulation Monitoring By Pharmacy) 1 each PRN DAILY PRN MC SEE COMMENTS Last administered on 03/18/19at 09:01; Start 03/18/19 at 08:30; Stop 03/19/19 at 13:50; Status DC Piperacillin Sod/ Tazobactam Sod (Zosyn Per Pharmacy) 1 each PRN DAILY PRN MC SEE COMMENTS; Start 03/18/19 at 08:45 Doxycycline Hyclate (Vibra-Tab) 100 mg BID PO Last administered on 03/20/19at 0 8:40; Start 03/18/19 at 09:00 Linezolid (Zyvox) 600 mg BID PO Last administered on 03/20/19at 08:40; Start 03/18/19 at 09:00 Piperacillin Sod/ Tazobactam Sod 3.375 gm/Sodium Chloride 50 ml @ 100 mls/hr Q6HRS IV Last administered on 03/20/19at 06:35; Start 03/18/19 at 09:00 Lactobacillus Rhamnosus (Culturelle) 1 cap BID PO Last administered on 03/20/19at 08:40; Start 03/18/19 at 21:00 Pantoprazole Sodium (Protonix) 40 mg DAILYAC PO ; Start 03/19/19 at 07:30; Stop 03/20/19 at 05:59; Status DC Pantoprazole Sodium (Protonix) 40 mg 1X ONCE PO ; Start 03/18/19 at 10:30; Stop 03/18/19 at 10:31; Status DC Enoxaparin Sodium (Lovenox 40mg Syringe) 40 mg Q24H SQ Last administered on 03/19/19at 15:00; Start 03/18/19 at 15:00 Furosemide (Lasix) 40 mg STK-MED ONCE .ROUTE ; Start 03/19/19 at 15:45; Stop 03/19/19 at 18:09; Status DC Pantoprazole Sodium (Protonix) 40 mg STK-MED ONCE PO ; Start 03/19/19 at 15:45; Stop 03/19/19 at 18:11; Status DC Piperacillin Sod/ Tazobactam Sod (Zosyn) 3.375 gm STK-MED ONCE IV ; Start 03/19/19 at 15:45; Stop 03/19/19 at 18:11; Status DC Enoxaparin Sodium (Lovenox 40mg Syringe) 40 mg STK-MED ONCE SQ ; Start 03/19/19 at 15:45; Stop 03/19/19 at 18:11; Status DC Amlodipine Besylate (Norvasc) 5 mg DAILY PO Last administered on 03/20/19at 08:41; Start 03/20/19 at 09:00 Amlodipine Besylate (Norvasc) 5 mg 1X ONCE PO Last administered on 03/19/19at 23:51; Start 03/19/19 at 23:30; Stop 03/19/19 at 23:31; Status DC Active Scripts Active Trazodone Hcl 50 Mg Tablet 1 Tab PO QHS Furosemide 40 Mg Tablet 40 Mg PO [id number] Aspirin Ec (Aspirin) 81 Mg Tablet. 81 Mg PO DAILYWBKFT 60 Days Atorvastatin Calcium 40 Mg Tablet 40 Mg PO QHS 30 Days Glimepiride 4 Mg Tablet 1 Tab PO BID Plavix (Clopidogrel Bisulfate) 75 Mg Tablet 75 Mg PO DAILYWBKFT [Aspirin] 325 MG Tablet 325 Mg PO DAILYWBKFT Januvia (Sitagliptin Phosphate) 100 Mg Tablet 1 Tab PO DAILY Reported Labetalol Hcl 100 Mg Tablet 1 Tab PO BID Protonix (Pantoprazole Sodium) 20 Mg Tablet.dr 2 Tab PO BID Entresto 97 mg-103 mg Tablet (Sacubitril/Valsartan) 1 Each Tablet 1 Each PO BID Gabapentin 300 Mg Capsule 300 Mg PO BID Temazepam 30 Mg Capsule 1 Cap PO QHS Potassium Chloride 20 Meq Tablet.er 20 Meq PO DAILY Spironolactone 25 Mg Tablet 1 Tab PO DAILY Cyclobenzaprine Hcl 10 Mg Tablet 1 Tab PO TID PRN Ropinirole Hcl 2 Mg Tablet 0.5 Mg PO QHS Hydrocodone-Apap 10-300 (Hydrocodone Bit/Acetaminophen) 1 Each Tablet 1 Tab PO Q6HRS PRN Amitriptyline Hcl 100 Mg Tablet 1 Tab PO QHS Vitals/I & O Vital Sign - Last 24 Hours 03/19/19 03/19/19 03/19/19 03/19/19 09:57 10:15 15:00 19:10 Temp 98.0 98.1 97.6 98.0 98.1 97.6 Pulse 90 93 90 Resp 16 16 21 B/P (MAP) 142/71 (94) 143/95 (111) 189/99 (129) Pulse Ox 91 92 96 93 O2 Delivery Room Air Room Air Room Air Room Air O2 Flow Rate 2.0 03/19/19 03/19/19 03/19/19 03/19/19 20:15 20:29 20:29 20:35 Pulse 92 92 B/P (MAP) 176/97 176/97 O2 Delivery Room Air Room Air 03/19/19 03/19/19 03/19/19 03/20/19 21:35 23:00 23:51 02:57 Temp 98.0 98.0 Pulse 90 94 Resp 21 B/P (MAP) 174/101 (125) 174/101 Pulse Ox 94 O2 Delivery Room Air Room Air Room Air 03/20/19 03/20/19 03/20/19 03/20/19 03:12 03:57 08:39 08:39 Temp 98.0 98.0 Pulse 99 103 Resp 22 18 B/P (MAP) 160/90 (113) 152/92 Pulse Ox 94 94 O2 Delivery Room Air Room Air Room Air O2 Flow Rate 2.0 03/20/19 03/20/19 08:41 08:41 Pulse 103 103 B/P (MAP) 152/92 103/92 Intake and Output 03/19/19 03/19/19 03/20/19 15:00 23:00 07:00 Intake Total 860 ml 740 ml 320 ml Output Total 1700 ml 1300 ml Balance 860 ml -960 ml -980 ml FRANNY ROJAS MD Mar 20, 2019 09:05
[2019-03-20 11:00] VITALS: BP 128/94
--- NOTE | 2019-03-20 11:17 | PDOC ---
Infectious Disease Note Subjective Subjective c/o nonproductive cough and anxiety Not getting much sleep + hot flashes, no fevers Not very hungry Denies N/V/D/SOA/CP ROS ROS per HPI Vital Sign Vital Signs Vital Signs Date Time Temp Pulse Resp B/P (MAP) Pulse Ox O2 Delivery O2 Flow Rate FiO2 03/20/19 08:41 103 103/92 03/20/19 08:39 18 94 Room Air 2.0 03/20/19 07:00 98.2 98.2 Physical Exam PHYSICAL EXAM GENERAL: Propped up in bed, alert, calm HENT: Pupils equal, oral cavity pink, moist NECK: Supple LUNGS: CTAB, nonlabored HEART: S1, S2. No gallops or murmurs. ABDOMEN: Obese, soft, nontender EXTREMITIES: No edema, no cyanosis. NEUROLOGIC: Alert and oriented x 3, grossly nonfocal. SKIN: Warm, dry, no generalized rash. Multiple tattoos. PIV Labs Lab Laboratory Tests Test 03/19/19 11:44 03/19/19 17:21 03/19/19 20:40 03/20/19 04:40 Glucose (Fingerstick) 122 mg/dL (70-99) 151 mg/dL (70-99) 91 mg/dL (70-99) White Blood Count 17.0 x10^3/uL (4.0-11.0) Red Blood Count 4.58 x10^6/uL (4.30-5.70) Hemoglobin 13.2 g/dL (13.0-17.5) Hematocrit 39.4 % (39.0-53.0) Mean Corpuscular Volume 86 fL (79-100) Mean Corpuscular Hemoglobin 29 pg (25-35) Mean Corpuscular Hemoglobin Concent 34 g/dL (31-37) Red Cell Distribution Width 14.9 % (11.5-14.5) Platelet Count 204 x10^3/uL (140-400) Neutrophils (%) (Auto) 89 % (31-73) Lymphocytes (%) (Auto) 4 % (24-48) Monocytes (%) (Auto) 5 % (0-9) Eosinophils (%) (Auto) 1 % (0-3) Basophils (%) (Auto) 0 % (0-3) Neutrophils # (Auto) 15.2 x10^3/uL (1.8-7.7) Lymphocytes # (Auto) 0.7 x10^3/uL (1.0-4.8) Monocytes # (Auto) 0.9 x10^3/uL (0.0-1.1) Eosinophils # (Auto) 0.2 x10^3/uL (0.0-0.7) Basophils # (Auto) 0.0 x10^3/uL (0.0-0.2) Sodium Level 137 mmol/L (136-145) Potassium Level 4.9 mmol/L (3.5-5.1) Chloride Level 100 mmol/L (98-107) Carbon Dioxide Level 27 mmol/L (21-32) Anion Gap 10 (6-14) Blood Urea Nitrogen 49 mg/dL (8-26) Creatinine 2.9 mg/dL (0.7-1.3) Estimated GFR (Cockcroft-Gault) 23.0 Glucose Level 76 mg/dL (70-99) Calcium Level 9.1 mg/dL (8.5-10.1) Test 03/20/19 07:38 Glucose (Fingerstick) 79 mg/dL (70-99) V/Q 1. A large triple match within the left lung healed intermediate probability for pulmonary embolism, though pneumonia and autoregulation could explain these findings if clinically consistent. CTA could further exclude pulmonary embolism if there is persistent concern. Micro Microbiology 03/17/19 Blood Culture - Preliminary, Resulted NO GROWTH AFTER 2 DAYS Objective Assessment Pulmonary infiltrates with febrile illness and leukocytosis Acute kidney injury on chronic kidney disease, hyperkalemia. Diabetes mellitus 2. Acute- on-chronic diastolic/systolic congestive heart failure with ejection fraction of 15%. Chronic pain. Elevated D Dimer with Abnormal V/Q scan. History of noncompliance. Plan Plan of Care cont Zyvox, Zosyn and doxycycline for atypical coverage. BC neg so far Patient seen and examined. Chart reviewed in detail. Case discussed with [employer]. Agree with above plan. YVETTE MARIN APRN Mar 20, 2019 11:17 DEBBY NOBLES MD Mar 20, 2019 21:37
--- NOTE | 2019-03-20 13:17 | PDOC ---
PROGRESS NOTES Subjective Subjective SEEN IN FOLLOW UP OF CKD4 Objective Objective Vital Signs Date Time Temp Pulse Resp B/P (MAP) Pulse Ox O2 Delivery O2 Flow Rate FiO2 03/20/19 12:36 94 Room Air 2.0 03/20/19 11:00 97.5 95 20 128/94 (105) 97.5 Intake and Output 03/20/19 07:00 Intake Total 1920 ml Output Total 3000 ml Balance -1080 ml Intake Oral 1920 ml Output Urine Total 3000 ml # Voids 1 Physical Exam Abdomen: Normal bowel sounds, Soft, No tenderness, No hepatosplenomegaly, No masses Heart: Regular rate, Normal S1, Normal S2, No murmurs, Gallops Extremities: No clubbing, No cyanosis, No edema, Normal pulses, No tenderness/swelling General: Alert, Oriented X3, Cooperative, No acute distress Lungs: Clear to auscultation, Normal air movement Psych/Mental Status: Mental status NL Diagnosis RENAL FAILURE: Chronic (CKD stage IV) Assessment Assessment Problems Medical Problems: (1) D-dimer, elevated Status: Acute (2) Elevated troponin Status: Acute (3) Hyperkalemia Status: Acute (4) Pneumonia Status: Acute (5) Sepsis Status: Acute Plan Plan of Care RENAL FUNCTION IS STABLE BUT POOR. CONT TO TREND AND MAINTAIN FLUID BALANCE Comment Review of Relevant I have reviewed the following items gavin (where applicable) has been applied. Labs Laboratory Tests Test 03/18/19 17:08 03/18/19 17:43 03/18/19 20:55 03/19/19 07:14 Glucose (Fingerstick) 125 mg/dL (70-99) 128 mg/dL (70-99) 100 mg/dL (70-99) Urine Opiates Screen Pos (NEG) Urine Methadone Screen Neg (NEG) Urine Barbiturates Neg (NEG) Urine Phencyclidine Screen Neg (NEG) Urine Amphetamine/Methamphetamine Neg (NEG) Urine Benzodiazepines Screen Neg (NEG) Urine Cocaine Screen Neg (NEG) Urine Cannabinoids Screen Neg (NEG) Urine Ethyl Alcohol Neg (NEG) Test 03/19/19 10:44 03/19/19 11:44 03/19/19 17:21 03/19/19 20:40 White Blood Count 14.4 x10^3/uL (4.0-11.0) Red Blood Count 4.36 x10^6/uL (4.30-5.70) Hemoglobin 12.5 g/dL (13.0-17.5) Hematocrit 37.4 % (39.0-53.0) Mean Corpuscular Volume 86 fL (79-100) Mean Corpuscular Hemoglobin 29 pg (25-35) Mean Corpuscular Hemoglobin Concent 33 g/dL (31-37) Red Cell Distribution Width 14.8 % (11.5-14.5) Platelet Count 165 x10^3/uL (140-400) Neutrophils (%) (Auto) 86 % (31-73) Lymphocytes (%) (Auto) 7 % (24-48) Monocytes (%) (Auto) 5 % (0-9) Eosinophils (%) (Auto) 2 % (0-3) Basophils (%) (Auto) 0 % (0-3) Neutrophils # (Auto) 12.3 x10^3/uL (1.8-7.7) Lymphocytes # (Auto) 1.0 x10^3/uL (1.0-4.8) Monocytes # (Auto) 0.8 x10^3/uL (0.0-1.1) Eosinophils # (Auto) 0.3 x10^3/uL (0.0-0.7) Basophils # (Auto) 0.0 x10^3/uL (0.0-0.2) Sodium Level 140 mmol/L (136-145) Potassium Level 4.6 mmol/L (3.5-5.1) Chloride Level 104 mmol/L (98-107) Carbon Dioxide Level 26 mmol/L (21-32) Anion Gap 10 (6-14) Blood Urea Nitrogen 47 mg/dL (8-26) Creatinine 3.0 mg/dL (0.7-1.3) Estimated GFR (Cockcroft-Gault) 22.1 Glucose Level 94 mg/dL (70-99) Calcium Level 8.6 mg/dL (8.5-10.1) Glucose (Fingerstick) 122 mg/dL (70-99) 151 mg/dL (70-99) 91 mg/dL (70-99) Test 03/20/19 04:40 03/20/19 07:38 03/20/19 11:58 White Blood Count 17.0 x10^3/uL (4.0-11.0) Red Blood Count 4.58 x10^6/uL (4.30-5.70) Hemoglobin 13.2 g/dL (13.0-17.5) Hematocrit 39.4 % (39.0-53.0) Mean Corpuscular Volume 86 fL (79-100) Mean Corpuscular Hemoglobin 29 pg (25-35) Mean Corpuscular Hemoglobin Concent 34 g/dL (31-37) Red Cell Distribution Width 14.9 % (11.5-14.5) Platelet Count 204 x10^3/uL (140-400) Neutrophils (%) (Auto) 89 % (31-73) Lymphocytes (%) (Auto) 4 % (24-48) Monocytes (%) (Auto) 5 % (0-9) Eosinophils (%) (Auto) 1 % (0-3) Basophils (%) (Auto) 0 % (0-3) Neutrophils # (Auto) 15.2 x10^3/uL (1.8-7.7) Lymphocytes # (Auto) 0.7 x10^3/uL (1.0-4.8) Monocytes # (Auto) 0.9 x10^3/uL (0.0-1.1) Eosinophils # (Auto) 0.2 x10^3/uL (0.0-0.7) Basophils # (Auto) 0.0 x10^3/uL (0.0-0.2) Sodium Level 137 mmol/L (136-145) Potassium Level 4.9 mmol/L (3.5-5.1) Chloride Level 100 mmol/L (98-107) Carbon Dioxide Level 27 mmol/L (21-32) Anion Gap 10 (6-14) Blood Urea Nitrogen 49 mg/dL (8-26) Creatinine 2.9 mg/dL (0.7-1.3) Estimated GFR (Cockcroft-Gault) 23.0 Glucose Level 76 mg/dL (70-99) Calcium Level 9.1 mg/dL (8.5-10.1) Glucose (Fingerstick) 79 mg/dL (70-99) 104 mg/dL (70-99) Laboratory Tests Test 03/19/19 17:21 03/19/19 20:40 03/20/19 04:40 03/20/19 07:38 Glucose (Fingerstick) 151 mg/dL (70-99) 91 mg/dL (70-99) 79 mg/dL (70-99) White Blood Count 17.0 x10^3/uL (4.0-11.0) Red Blood Count 4.58 x10^6/uL (4.30-5.70) Hemoglobin 13.2 g/dL (13.0-17.5) Hematocrit 39.4 % (39.0-53.0) Mean Corpuscular Volume 86 fL (79-100) Mean Corpuscular Hemoglobin 29 pg (25-35) Mean Corpuscular Hemoglobin Concent 34 g/dL (31-37) Red Cell Distribution Width 14.9 % (11.5-14.5) Platelet Count 204 x10^3/uL (140-400) Neutrophils (%) (Auto) 89 % (31-73) Lymphocytes (%) (Auto) 4 % (24-48) Monocytes (%) (Auto) 5 % (0-9) Eosinophils (%) (Auto) 1 % (0-3) Basophils (%) (Auto) 0 % (0-3) Neutrophils # (Auto) 15.2 x10^3/uL (1.8-7.7) Lymphocytes # (Auto) 0.7 x10^3/uL (1.0-4.8) Monocytes # (Auto) 0.9 x10^3/uL (0.0-1.1) Eosinophils # (Auto) 0.2 x10^3/uL (0.0-0.7) Basophils # (Auto) 0.0 x10^3/uL (0.0-0.2) Sodium Level 137 mmol/L (136-145) Potassium Level 4.9 mmol/L (3.5-5.1) Chloride Level 100 mmol/L (98-107) Carbon Dioxide Level 27 mmol/L (21-32) Anion Gap 10 (6-14) Blood Urea Nitrogen 49 mg/dL (8-26) Creatinine 2.9 mg/dL (0.7-1.3) Estimated GFR (Cockcroft-Gault) 23.0 Glucose Level 76 mg/dL (70-99) Calcium Level 9.1 mg/dL (8.5-10.1) Test 03/20/19 11:58 Glucose (Fingerstick) 104 mg/dL (70-99) Microbiology 03/17/19 Blood Culture - Preliminary, Resulted NO GROWTH AFTER 2 DAYS Medications Current Medications Aspirin (Children'S Aspirin) 324 mg 1X STAT PO Last administered on 03/17/19at 14:31; Start 03/17/19 at 14:11; Stop 03/17/19 at 14:13; Status DC Levofloxacin/ Dextrose 150 ml @ 100 mls/hr 1X ONCE IV Last administered on 03/17/19at 15:52; Start 03/17/19 at 15:15; Stop 03/17/19 at 16:44; Status DC Cefepime HCl (Maxipime) 2 gm 1X ONCE IVP Last administered on 03/17/19at 15:47; Start 03/17/19 at 15:15; Stop 03/17/19 at 15:16; Status DC Vancomycin HCl 2 gm/Sodium Chloride 500 ml @ 250 mls/hr 1X ONCE IV Last administered on 03/17/19at 18:44; Start 03/17/19 at 16:00; Stop 03/17/19 at 17:59; Status DC Calcium Gluconate (Calcium Gluconate) 1,000 mg 1X STAT IVP ; Start 03/17/19 at 15:27; Stop 03/17/19 at 15:28; Status UNV Calcium Gluconate (Calcium Gluconate) 1,000 mg 1X IVP Last administered on 03/17/19at 15:42; Start 03/17/19 at 15:35; Stop 03/18/19 at 08:42; Status DC Calcium Gluconate (Calcium Gluconate) 1,000 mg 1X IVP ; Start 03/17/19 at 15:40; Status UNV Insulin Human Regular (HumuLIN R VIAL) 10 unit 1X STAT IV Last administered on 03/17/19at 15:53; Start 03/17/19 at 15:27; Stop 03/17/19 at 15:32; Status DC Dextrose (Dextrose 50%-Water Syringe) 25 gm 1X STAT IV Last administered on 03/17/19at 15:50; Start 03/17/19 at 15:27; Stop 03/17/19 at 15:32; Status DC Sodium Polystyrene Sulfonate (Kayexalate) 15 gm 1X STAT PO Last administered on 03/17/19at 15:50; Start 03/17/19 at 15:27; Stop 03/17/19 at 15:32; Status DC Calcium Gluconate (Calcium Gluconate) 1,000 mg 1X ONCE IV Last administered on 03/17/19 16:44; Start 03/17/19 at 16:15; Stop 03/17/19 at 16:16; Status DC Calcium Gluconate (Calcium Gluconate) 1,000 mg 1X ONCE IV Last administered on 03/17/19 16:44; Start 03/17/19 at 16:20; Stop 03/17/19 at 16:21; Status DC Fentanyl Citrate (Fentanyl 2ml Vial) 75 mcg 1X ONCE IV Last administered on 03/17/19 17:05; Start 03/17/19 at 17:00; Stop 03/17/19 at 17:01; Status DC Aspirin (Ecotrin) 81 mg DAILYWBKFT PO Last administered on 03/20/19 08:42; Start 03/17/19 at 19:30 Atorvastatin Calcium (Lipitor) 40 mg QHS PO Last administered on 03/19/19 20:28; Start 03/17/19 at 21:00 Clopidogrel Bisulfate (Plavix) 75 mg DAILYWBKFT PO Last administered on 03/20/19 08:40; Start 03/17/19 at 19:30 Cyclobenzaprine HCl (Flexeril) 10 mg PRN TID PRN PO MUSCLE SPASMS Last administered on 03/19/19 12:11; Start 03/17/19 at 18:30 Furosemide (Lasix) 40 mg BID94 PO Last administered on 03/20/19 08:40; Start 03/17/19 at 19:00 Gabapentin (Neurontin) 300 mg BID PO Last administered on 03/20/19 08:40; Start 03/17/19 at 21:00 Labetalol HCl (Trandate) 100 mg BID PO Last administered on 03/20/19 08:41; Start 03/17/19 at 21:00 Spironolactone (Aldactone) 25 mg DAILY PO Last administered on 03/20/19 08:39; Start 03/17/19 at 19:30 Temazepam (Restoril) 30 mg QHS PO Last administered on 03/19/19 23:12; Start 03/17/19 at 21:00 Trazodone HCl (Desyrel) 50 mg QHS PO Last administered on 03/19/19 20:27; Start 03/17/19 at 21:00 Amitriptyline HCl (Elavil) 100 mg QHS PO ; Start 03/17/19 at 21:00; Status UNV Glimepiride (Amaryl) 4 mg BID PO Last administered on 03/20/19 08:40; Start 03/17/19 at 21:00 Acetaminophen/ Hydrocodone Bitart (Lortab 7.5/325) 1 tab PRN Q6HRS PRN PO PAIN; Start 03/17/19 at 18:45; Stop 03/17/19 at 18:41; Status DC Pantoprazole Sodium (Protonix) 40 mg BIDAC PO Last administered on 03/20/19 08:40; Start 03/17/19 at 19:30 Ropinirole HCl (Requip) 0.5 mg QHS PO Last administered on 03/19/19 20:28; Start 03/17/19 at 21:00 Sacubitril/ Valsartan (Entresto 49 Mg-51 Mg) 2 tab BID PO Last administered on 03/20/19 08:39; Start 03/17/19 at 21:00 Linagliptin (Tradjenta) 5 mg DAILY PO Last administered on 03/20/19 08:40; Start 03/17/19 at 19:30 Non-Formulary Medication ([Aspirin] ) 325 mg DAILYWBKFT PO ; Start 03/18/19 at 08:00; Status UNV Acetaminophen/ Hydrocodone Bitart (Lortab 10/325) 1 tab PRN Q6HRS PRN PO PAIN Last administered on 03/20/19 08:39; Start 03/17/19 at 18:45 Enoxaparin Sodium (Lovenox 100mg Syringe) 90 mg QHS SQ Last administered on 03/17/19 21:15; Start 03/17/19 at 21:00; Stop 03/18/19 at 11:39; Status DC Info (Anti-Coagulation Monitoring By Pharmacy) 1 each PRN DAILY PRN MC SEE COMMENTS Last administered on 03/18/19 09:01; Start 03/18/19 at 08:30; Stop 03/19/19 at 13:50; Status DC Piperacillin Sod/ Tazobactam Sod (Zosyn Per Pharmacy) 1 each PRN DAILY PRN MC SEE COMMENTS; Start 03/18/19 at 08:45 Doxycycline Hyclate (Vibra-Tab) 100 mg BID PO Last administered on 03/20/19at 08:40; Start 03/18/19 at 09:00 Linezolid (Zyvox) 600 mg BID PO Last administered on 03/20/19at 08:40; Start 03/18/19 at 09:00 Piperacillin Sod/ Tazobactam Sod 3.375 gm/Sodium Chloride 50 ml @ 100 mls/hr Q6HRS IV Last administered on 03/20/19at 12:32; Start 03/18/19 at 09:00 Lactobacillus Rhamnosus (Culturelle) 1 cap BID PO Last administered on 03/20/19at 08:40; Start 03/18/19 at 21:00 Pantoprazole Sodium (Protonix) 40 mg DAILYAC PO ; Start 03/19/19 at 07:30; Stop 03/20/19 at 05:59; Status DC Pantoprazole Sodium (Protonix) 40 mg 1X ONCE PO ; Start 03/18/19 at 10:30; Stop 03/18/19 at 10:31; Status DC Enoxaparin Sodium (Lovenox 40mg Syringe) 40 mg Q24H SQ Last administered on 03/19/19at 15:00; Start 03/18/19 at 15:00 Furosemide (Lasix) 40 mg STK-MED ONCE .ROUTE ; Start 03/19/19 at 15:45; Stop 03/19/19 at 18:09; Status DC Pantoprazole Sodium (Protonix) 40 mg STK-MED ONCE PO ; Start 03/19/19 at 15:45; Stop 03/19/19 at 18:11; Status DC Piperacillin Sod/ Tazobactam Sod (Zosyn) 3.375 gm STK-MED ONCE IV ; Start 03/19/19 at 15:45; Stop 03/19/19 at 18:11; Status DC Enoxaparin Sodium (Lovenox 40mg Syringe) 40 mg STK-MED ONCE SQ ; Start 03/19/19 at 15:45; Stop 03/19/19 at 18:11; Status DC Amlodipine Besylate (Norvasc) 5 mg DAILY PO Last administered on 03/20/19at 08:41; Start 03/20/19 at 09:00 Amlodipine Besylate (Norvasc) 5 mg 1X ONCE PO Last administered on 03/19/19at 23:51; Start 03/19/19 at 23:30; Stop 03/19/19 at 23:31; Status DC Active Scripts Active Trazodone Hcl 50 Mg Tablet 1 Tab PO QHS Furosemide 40 Mg Tablet 40 Mg PO [id number] Aspirin Ec (Aspirin) 81 Mg Tablet.dr 81 Mg PO DAILYWBKFT 60 Days Atorvastatin Calcium 40 Mg Tablet 40 Mg PO QHS 30 Days Glimepiride 4 Mg Tablet 1 Tab PO BID Plavix (Clopidogrel Bisulfate) 75 Mg Tablet 75 Mg PO DAILYWBKFT [Aspirin] 325 MG Tablet 325 Mg PO DAILYWBKFT Januvia (Sitagliptin Phosphate) 100 Mg Tablet 1 Tab PO DAILY Reported Labetalol Hcl 100 Mg Tablet 1 Tab PO BID Protonix (Pantoprazole Sodium) 20 Mg Tablet.dr 2 Tab PO BID Entresto 97 mg-103 mg Tablet (Sacubitril/Valsartan) 1 Each Tablet 1 Each PO BID Gabapentin 300 Mg Capsule 300 Mg PO BID Temazepam 30 Mg Capsule 1 Cap PO QHS Potassium Chloride 20 Meq Tablet.er 20 Meq PO DAILY Spironolactone 25 Mg Tablet 1 Tab PO DAILY Cyclobenzaprine Hcl 10 Mg Tablet 1 Tab PO TID PRN Ropinirole Hcl 2 Mg Tablet 0.5 Mg PO QHS Hydrocodone-Apap 10-300 (Hydrocodone Bit/Acetaminophen) 1 Each Tablet 1 Tab PO Q6HRS PRN Amitriptyline Hcl 100 Mg Tablet 1 Tab PO QHS Vitals/I & O Vital Sign - Last 24 Hours 03/19/19 03/19/19 03/19/19 03/19/19 15:00 19:10 20:15 20:29 Temp 98.1 97.6 98.1 97.6 Pulse 93 90 92 Resp 16 21 B/P (MAP) 143/95 (111) 189/99 (129) 176/97 Pulse Ox 96 93 O2 Delivery Room Air Room Air Room Air 03/19/19 03/19/19 03/19/19 03/19/19 20:29 20:35 21:35 23:00 Temp 98.0 98.0 Pulse 92 90 Resp 21 B/P (MAP) 176/97 174/101 (125) Pulse Ox 94 O2 Delivery Room Air Room Air Room Air 03/19/19 03/20/19 03/20/19 03/20/19 23:51 02:57 03:12 03:57 Temp 98.0 98.0 Pulse 94 99 Resp 22 B/P (MAP) 174/101 160/90 (113) Pulse Ox 94 O2 Delivery Room Air Room Air Room Air 03/20/19 03/20/19 03/20/19 03/20/19 07:00 08:00 08:39 08:39 Temp 98.2 98.2 Pulse 97 103 Resp 20 18 B/P (MAP) 152/92 (112) 152/92 Pulse Ox 92 94 O2 Delivery Room Air Room Air Room Air O2 Flow Rate 2.0 2.0 03/20/19 03/20/19 03/20/19 03/20/19 08:41 08:41 11:00 12:36 Temp 97.5 97.5 Pulse 103 103 95 Resp 20 B/P (MAP) 152/92 103/92 128/94 (105) Pulse Ox 93 94 O2 Delivery Room Air Room Air O2 Flow Rate 2.0 Intake and Output 03/19/19 03/19/19 03/20/19 15:00 23:00 07:00 Intake Total 860 ml 740 ml 320 ml Output Total 1700 ml 1300 ml Balance 860 ml -960 ml -980 ml SOLO VALENTIN MD Mar 20, 2019 13:17
[2019-03-20 15:00] VITALS: BP 122/72
[2019-03-20] MEDS: ENOXAPARIN 40 MG/0.4 ML SYRINGE. SQ SCH (17:11)
[2019-03-20 19:15] VITALS: BP 139/89
[2019-03-20] MEDS: ATORVASTATIN CALCIUM 40 MG TABLET. PO SCH (21:11)
[2019-03-20] MEDS: traZODone 50 MG TABLET. PO SCH (21:11)
[2019-03-20] MEDS: rOPINIRole 0.25 MG TABLET. PO SCH (21:12)
[2019-03-20] MEDS: TEMAZEPAM 15 MG CAPSULE PO SCH (22:57)
[2019-03-20 23:10] VITALS: BP 170/108
[2019-03-20] MEDS ORDERED: amLODIPine BESYLATE 5 MG TABLET PO ONE (23:30)
[2019-03-21 03:06] VITALS: BP 144/84
[2019-03-21] MEDS: PIPERACILLIN/TAZOBACTAM 3.375 GM in IV NORMAL SALINE 50ML 50 ML IV SCH ×3 (06:15→18:00)
[2019-03-21] MEDS: HYDROcodone/APAP 10/325 1 TAB TABLET PO PRN ×3 (06:18→21:44)
[2019-03-21 07:00] VITALS: BP 179/96
[2019-03-21 07:57] LABS: BASO % 0 % (0-3); EOS # 0.1 x10^3/uL (0.0-0.7); EOS % 1 % (0-3); HEMATOCRIT 40.2 % (39.0-53.0); HEMOGLOBIN 13.4 g/dL (13.0-17.5); LYMPH % 8 % (24-48); MEAN CORPUSCULAR HEMOGLOBIN 29 pg (25-35); MEAN CORPUSCULAR HGB CONC 33 g/dL (31-37); MEAN CORPUSCULAR VOLUME 86 fL (79-100); MONO # 0.9 x10^3/uL (0.0-1.1); MONO % 8 % (0-9); NEUT # 10.4 x10^3/uL (1.8-7.7); NEUT % 83 % (31-73); PLATELET COUNT 233 x10^3/uL (140-400); RED BLOOD COUNT 4.66 x10^6/uL (4.30-5.70); RED CELL DISTRIBUTION WIDTH 15.2 % (11.5-14.5); WHITE BLOOD COUNT 12.5 x10^3/uL (4.0-11.0)
--- NOTE | 2019-03-21 07:58 | PDOC ---
PULMONARY PROGRESS NOTES Subjective sob better, has occ cough, tired Vitals Vital Signs Date Time Temp Pulse Resp B/P (MAP) Pulse Ox O2 Delivery O2 Flow Rate FiO2 03/21/19 07:00 98.3 101 18 179/96 (123) 94 Room Air 98.3 03/20/19 17:12 2.0 ROS: No Nausea, No Chest Pain, No Abdominal Pain, No Increase Cough General: Alert Lungs: Clear Cardiovascular: S1, S2 Abdomen: Soft, Non-tender Neuro Exam: Alert Extremities: No Edema Skin: Warm Labs Laboratory Tests Test 03/19/19 10:44 03/19/19 11:44 03/19/19 17:21 03/19/19 20:40 White Blood Count 14.4 x10^3/uL (4.0-11.0) Red Blood Count 4.36 x10^6/uL (4.30-5.70) Hemoglobin 12.5 g/dL (13.0-17.5) Hematocrit 37.4 % (39.0-53.0) Mean Corpuscular Volume 86 fL (79-100) Mean Corpuscular Hemoglobin 29 pg (25-35) Mean Corpuscular Hemoglobin Concent 33 g/dL (31-37) Red Cell Distribution Width 14.8 % (11.5-14.5) Platelet Count 165 x10^3/uL (140-400) Neutrophils (%) (Auto) 86 % (31-73) Lymphocytes (%) (Auto) 7 % (24-48) Monocytes (%) (Auto) 5 % (0-9) Eosinophils (%) (Auto) 2 % (0-3) Basophils (%) (Auto) 0 % (0-3) Neutrophils # (Auto) 12.3 x10^3/uL (1.8-7.7) Lymphocytes # (Auto) 1.0 x10^3/uL (1.0-4.8) Monocytes # (Auto) 0.8 x10^3/uL (0.0-1.1) Eosinophils # (Auto) 0.3 x10^3/uL (0.0-0.7) Basophils # (Auto) 0.0 x10^3/uL (0.0-0.2) Sodium Level 140 mmol/L (136-145) Potassium Level 4.6 mmol/L (3.5-5.1) Chloride Level 104 mmol/L (98-107) Carbon Dioxide Level 26 mmol/L (21-32) Anion Gap 10 (6-14) Blood Urea Nitrogen 47 mg/dL (8-26) Creatinine 3.0 mg/dL (0.7-1.3) Estimated GFR (Cockcroft-Gault) 22.1 Glucose Level 94 mg/dL (70-99) Calcium Level 8.6 mg/dL (8.5-10.1) Glucose (Fingerstick) 122 mg/dL (70-99) 151 mg/dL (70-99) 91 mg/dL (70-99) Test 03/20/19 04:40 03/20/19 07:38 03/20/19 11:58 03/20/19 17:19 White Blood Count 17.0 x10^3/uL (4.0-11.0) Red Blood Count 4.58 x10^6/uL (4.30-5.70) Hemoglobin 13.2 g/dL (13.0-17.5) Hematocrit 39.4 % (39.0-53.0) Mean Corpuscular Volume 86 fL (79-100) Mean Corpuscular Hemoglobin 29 pg (25-35) Mean Corpuscular Hemoglobin Concent 34 g/dL (31-37) Red Cell Distribution Width 14.9 % (11.5-14.5) Platelet Count 204 x10^3/uL (140-400) Neutrophils (%) (Auto) 89 % (31-73) Lymphocytes (%) (Auto) 4 % (24-48) Monocytes (%) (Auto) 5 % (0-9) Eosinophils (%) (Auto) 1 % (0-3) Basophils (%) (Auto) 0 % (0-3) Neutrophils # (Auto) 15.2 x10^3/uL (1.8-7.7) Lymphocytes # (Auto) 0.7 x10^3/uL (1.0-4.8) Monocytes # (Auto) 0.9 x10^3/uL (0.0-1.1) Eosinophils # (Auto) 0.2 x10^3/uL (0.0-0.7) Basophils # (Auto) 0.0 x10^3/uL (0.0-0.2) Sodium Level 137 mmol/L (136-145) Potassium Level 4.9 mmol/L (3.5-5.1) Chloride Level 100 mmol/L (98-107) Carbon Dioxide Level 27 mmol/L (21-32) Anion Gap 10 (6-14) Blood Urea Nitrogen 49 mg/dL (8-26) Creatinine 2.9 mg/dL (0.7-1.3) Estimated GFR (Cockcroft-Gault) 23.0 Glucose Level 76 mg/dL (70-99) Calcium Level 9.1 mg/dL (8.5-10.1) Glucose (Fingerstick) 79 mg/dL (70-99) 104 mg/dL (70-99) 58 mg/dL (70-99) Test 03/20/19 20:44 03/21/19 07:37 Glucose (Fingerstick) 99 mg/dL (70-99) 164 mg/dL (70-99) Laboratory Tests Test 03/20/19 11:58 03/20/19 17:19 03/20/19 20:44 03/21/19 07:37 Glucose (Fingerstick) 104 mg/dL (70-99) 58 mg/dL (70-99) 99 mg/dL (70-99) 164 mg/dL (70-99) Medications Active Scripts Medications Dose Route/Sig Max Daily Dose Days Date Category Labetalol Hcl 100 Mg Tablet 1 Tab PO BID 03/17/19 Reported Protonix (Pantoprazole Sodium) 20 Mg Tablet.dr 2 Tab PO BID 02/11/19 Reported Entresto 97 mg-103 mg Tablet (Sacubitril/Valsartan) 1 Each Tablet 1 Each PO BID 02/11/19 Reported Gabapentin 300 Mg Capsule 300 Mg PO BID 02/11/19 Reported Temazepam 30 Mg Capsule 1 Cap PO QHS 02/11/19 Reported Potassium Chloride 20 Meq Tablet.er 20 Meq PO DAILY 02/11/19 Reported Spironolactone 25 Mg Tablet 1 Tab PO DAILY 02/11/19 Reported Cyclobenzaprine Hcl 10 Mg Tablet 1 Tab PO TID PRN 02/11/19 Reported Trazodone Hcl 50 Mg Tablet 1 Tab PO QHS 03/19/18 Rx Furosemide 40 Mg Tablet 40 Mg PO [id number] 03/19/18 Rx Aspirin Ec (Aspirin) 81 Mg Tablet.dr 81 Mg PO DAILYWBKFT 60 03/19/18 Rx Atorvastatin Calcium 40 Mg Tablet 40 Mg PO QHS 30 03/19/18 Rx Glimepiride 4 Mg Tablet 1 Tab PO BID 03/19/18 Rx Plavix (Clopidogrel Bisulfate) 75 Mg Tablet 75 Mg PO DAILYWBKFT 03/04/15 Rx [Aspirin] 325 MG Tablet 325 Mg PO DAILYWBKFT 03/04/15 Rx Januvia (Sitagliptin Phosphate) 100 Mg Tablet 1 Tab PO DAILY 11/18/14 Rx Ropinirole Hcl 2 Mg Tablet 0.5 Mg PO QHS 07/22/14 Reported Hydrocodone-Apap 10-300 (Hydrocodone Bit/Acetaminophen) 1 Each Tablet 1 Tab PO Q6HRS PRN 07/22/14 Reported Amitriptyline Hcl 100 Mg Tablet 1 Tab PO QHS 07/22/14 Reported Impression . IMPRESSION: 1. Abnormal x-ray compatible with pneumonia, suspect gram-negative, possibly gram-positive. 2. Possible aspiration pneumonia. 3. Acute hypoxemic respiratory failure. 4. Elevated D-dimer, nonspecific, suspect secondary to infection. 5. Acute on chronic kidney disease. 6. Type 2 diabetes. 7. Acute on chronic diastolic and systolic congestive heart failure, the patient with ejection fraction of 15%. 8. Abnormal V/Q scan compatible with the patient's pneumonia. clinical suspicion for pe is low. No need for anticoagulation. Plan . ANTIBX PER ID, Zyvox, Zosyn and doxycycline increase activity protonix, lovenox for prophylaxis ok to dc from pulm standpoint w po abx per id needs fu cxr in 4-6 wks. discussed w pt DELFINA CORDOVA MD Mar 21, 2019 07:57
[2019-03-21 08:13] LABS: ALBUMIN 2.7 g/dL (3.4-5.0); ALBUMIN/GLOBULIN RATIO 0.5 (1.0-1.7); CALCIUM 9.2 mg/dL (8.5-10.1); GFR 22.1; TOTAL BILIRUBIN 0.6 mg/dL (0.2-1.0)
[2019-03-21 08:26] LABS: POTASSIUM 5.6 mmol/L (3.5-5.1)
[2019-03-21] MEDS: PANTOPRAZOLE 40 MG TABLET.DR. PO SCH ×2 (09:02→16:54)
[2019-03-21] MEDS: LACTOBACILLUS RHAMNOSUS GG 1 CAPSULE. PO SCH ×2 (09:02→21:37)
[2019-03-21] MEDS: ASPIRIN ENTERIC COATED 81 MG TABLET.DR. PO SCH (09:02)
[2019-03-21] MEDS: GABAPENTIN 300 MG CAPSULE. PO SCH ×2 (09:02→21:37)
[2019-03-21] MEDS: LINAGLIPTIN 5 MG TABLET PO SCH (09:02)
[2019-03-21] MEDS: GLIMEPIRIDE 2 MG TABLET. PO SCH ×2 (09:02→21:44)
[2019-03-21] MEDS: LINEZOLID 600 MG TABLET PO SCH ×2 (09:02→21:37)
[2019-03-21] MEDS: CLOPIDOGREL BISULFATE 75 MG TABLET PO SCH (09:02)
[2019-03-21] MEDS: SPIRONOLACTONE 25 MG TABLET PO SCH (09:02)
[2019-03-21] MEDS: DOXYCYCLINE HYCLATE 100 MG TABLET PO SCH ×2 (09:02→21:46)
[2019-03-21] MEDS: LABETALOL HCL 100 MG TABLET. PO SCH ×3 (09:03→21:38)
[2019-03-21] MEDS: SACUBITRIL/VALSARTAN 49/51MG TABLET. PO SCH ×2 (09:03→21:38)
[2019-03-21] MEDS: FUROSEMIDE 40 MG TABLET. PO SCH ×2 (09:03→16:54)
[2019-03-21] MEDS: amLODIPine BESYLATE 10 MG TABLET PO SCH (09:04)
--- NOTE | 2019-03-21 09:51 | PDOC ---
Infectious Disease Note Subjective Subjective Doing about the same as yesterday No fevers or chills Some anxiety and cough ROS ROS per HPI Vital Sign Vital Signs Vital Signs Date Time Temp Pulse Resp B/P (MAP) Pulse Ox O2 Delivery O2 Flow Rate FiO2 03/21/19 09:36 18 94 Room Air 2.0 03/21/19 09:04 101 179/96 03/21/19 07:00 98.3 98.3 Physical Exam PHYSICAL EXAM GENERAL: Propped up in bed, alert, calm HENT: Pupils equal, oral cavity pink, moist NECK: Supple LUNGS: CTAB, nonlabored HEART: S1, S2. No gallops or murmurs. ABDOMEN: Obese, soft, nontender EXTREMITIES: No edema, no cyanosis. NEUROLOGIC: Alert and oriented x 3, grossly nonfocal. SKIN: Warm, dry, no generalized rash. Multiple tattoos. PIV Labs Lab Laboratory Tests Test 03/20/19 11:58 03/20/19 17:19 03/20/19 20:44 03/21/19 06:05 Glucose (Fingerstick) 104 mg/dL (70-99) 58 mg/dL (70-99) 99 mg/dL (70-99) White Blood Count 12.5 x10^3/uL (4.0-11.0) Red Blood Count 4.66 x10^6/uL (4.30-5.70) Hemoglobin 13.4 g/dL (13.0-17.5) Hematocrit 40.2 % (39.0-53.0) Mean Corpuscular Volume 86 fL (79-100) Mean Corpuscular Hemoglobin 29 pg (25-35) Mean Corpuscular Hemoglobin Concent 33 g/dL (31-37) Red Cell Distribution Width 15.2 % (11.5-14.5) Platelet Count 233 x10^3/uL (140-400) Neutrophils (%) (Auto) 83 % (31-73) Lymphocytes (%) (Auto) 8 % (24-48) Monocytes (%) (Auto) 8 % (0-9) Eosinophils (%) (Auto) 1 % (0-3) Basophils (%) (Auto) 0 % (0-3) Neutrophils # (Auto) 10.4 x10^3/uL (1.8-7.7) Lymphocytes # (Auto) 1.0 x10^3/uL (1.0-4.8) Monocytes # (Auto) 0.9 x10^3/uL (0.0-1.1) Eosinophils # (Auto) 0.1 x10^3/uL (0.0-0.7) Basophils # (Auto) 0.0 x10^3/uL (0.0-0.2) Sodium Level 134 mmol/L (136-145) Potassium Level 5.6 mmol/L (3.5-5.1) Chloride Level 98 mmol/L (98-107) Carbon Dioxide Level 24 mmol/L (21-32) Anion Gap 12 (6-14) Blood Urea Nitrogen 57 mg/dL (8-26) Creatinine 3.0 mg/dL (0.7-1.3) Estimated GFR (Cockcroft-Gault) 22.1 BUN/Creatinine Ratio 19 (6-20) Glucose Level 119 mg/dL (70-99) Calcium Level 9.2 mg/dL (8.5-10.1) Total Bilirubin 0.6 mg/dL (0.2-1.0) Aspartate Amino Transf (AST/SGOT) 13 U/L (15-37) Alanine Aminotransferase (ALT/SGPT) 10 U/L (16-63) Alkaline Phosphatase 82 U/L (46-116) Total Protein 8.0 g/dL (6.4-8.2) Albumin 2.7 g/dL (3.4-5.0) Albumin/Globulin Ratio 0.5 (1.0-1.7) Test 03/21/19 07:37 Glucose (Fingerstick) 164 mg/dL (70-99) Micro Microbiology 03/17/19 Blood Culture - Preliminary, Resulted NO GROWTH AFTER 3 DAYS Objective Assessment Pulmonary infiltrates with febrile illness and leukocytosis Leukocytosis - better Acute kidney injury on chronic kidney disease, hyperkalemia. Diabetes mellitus 2. Acute- on-chronic diastolic/systolic congestive heart failure with ejection fr action of 15%. Chronic pain. Elevated D Dimer with Abnormal V/Q scan. History of noncompliance. Plan Plan of Care cont Zyvox, Zosyn and doxycycline for atypical coverage. BC neg so far Supportive care f/u cxr Patient seen and examined. Chart reviewed in detail. Case discussed with [employer] SUPER[employer]OR. Agree with above plan YVETTE MARIN APRN Mar 21, 2019 09:51 DEBBY NOBLES MD Mar 21, 2019 18:55
--- NOTE | 2019-03-21 10:28 | RAD ---
EXAM: CHEST 2 VIEWS. HISTORY: Pneumonia. COMPARISON: 03/17/2019. FINDINGS: Frontal and lateral views of the chest are obtained. Left perihilar and right basilar infiltrates have almost completely resolved. There is no pneumothorax or pleural effusion. The heart is not enlarged. Small metallic object projects over the left supraclavicular region. IMPRESSION: 1. Previous noted infiltrates have almost completely resolved. Electronically signed by: Jeremy Kaplan MD (03/21/2019 10:25 AM) [facility]
[2019-03-21 11:00] VITALS: BP 157/87
--- NOTE | 2019-03-21 11:03 | PDOC ---
PROGRESS NOTES History of Present Illness History of Present Illness ASSESSMENT Pneumonia, POSSIBLE ASPIRATION New extensive left lung infiltrate with a smaller area of right medial basilar infiltrate. acute respiratory failure, hyperkalemia, elevated troponin, DEMAND ISCHEMIA chronic renal insufficiency sepsis elevated lactic acid NO PE obesity Hx of cocaine abuse: recently noted on 03/01 [facility] RECENT ECHO The left ventricular systolic function is moderately impaired. The Ejection Fraction is 30-35%. Transmitral Doppler flow pattern is Grade I-abnormal relaxation pattern. 03-21 c/o inc anxiety, will start effexor 37.5 mg xr po daily when off zyvox admitted. IV antibiotics. cont Zosyn and Zyvox. cont doxycycline for atypical coverage. blood culture Consult Infectious Disease, consult Pulmonary. DuoNebs, oxygen support, home meds, DVT prophylaxis, full code, consult Dr. Martinez., nephrology CARDIOLOGY CONSULT 26 Min pt exam, chart review, > 50% of time spent with exam, chart review, pt care coordination Vitals Vitals Vital Signs Date Time Temp Pulse Resp B/P (MAP) Pulse Ox O2 Delivery O2 Flow Rate FiO2 03/21/19 09:36 18 94 Room Air 2.0 03/21/19 09:04 101 179/96 03/21/19 07:00 98.3 98.3 Physical Exam Physical Exam GENERAL: Propped up in bed, alert, calm HENT: Pupils equal, oral cavity pink, moist NECK: Supple LUNGS: CTAB, nonlabored HEART: S1, S2. No gallops or murmurs. ABDOMEN: Obese, soft, nontender EXTREMITIES: No edema, no cyanosis. NEUROLOGIC: Alert and oriented x 3, grossly nonfocal. SKIN: Warm, dry, no generalized rash. Multiple tattoos. PIV General: Alert, Oriented X3, Cooperative, No acute distress Heart: Regular rate, Normal S1, Normal S2, No murmurs, Gallops Lungs: Clear Abdomen: Normal bowel sounds, Soft, No tenderness, No hepatosplenomegaly, No masses Extremities: No clubbing, No cyanosis, No edema, Normal pulses, No t enderness/swelling Skin: No breakdown, No significant lesion Labs LABS EXAM: CHEST 2 VIEWS. HISTORY: Pneumonia. COMPARISON: 03/17/2019. FINDINGS: Frontal and lateral views of the chest are obtained. Left perihilar and right basilar infiltrates have almost completely resolved. There is no pneumothorax or pleural effusion. The heart is not enlarged. Small metallic object projects over the left supraclavicular region. IMPRESSION: 1. Previous noted infiltrates have almost completely resolved. Electronically signed by: Jeremy Rivera MD (03/21/2019 10:25 AM) [facility] DICTATED and SIGNED BY: ANGIE RIVERA MD DATE: 03/21/19 1025 Laboratory Tests Test 03/20/19 11:58 03/20/19 17:19 03/20/19 20:44 03/21/19 06:05 Glucose (Fingerstick) 104 mg/dL (70-99) 58 mg/dL (70-99) 99 mg/dL (70-99) White Blood Count 12.5 x10^3/uL (4.0-11.0) Red Blood Count 4.66 x10^6/uL (4.30-5.70) Hemoglobin 13.4 g/dL (13.0-17.5) Hematocrit 40.2 % (39.0-53.0) Mean Corpuscular Volume 86 fL (79-100) Mean Corpuscular Hemoglobin 29 pg (25-35) Mean Corpuscular Hemoglobin Concent 33 g/dL (31-37) Red Cell Distribution Width 15.2 % (11.5-14.5) Platelet Count 233 x10^3/uL (140-400) Neutrophils (%) (Auto) 83 % (31-73) Lymphocytes (%) (Auto) 8 % (24-48) Monocytes (%) (Auto) 8 % (0-9) Eosinophils (%) (Auto) 1 % (0-3) Basophils (%) (Auto) 0 % (0-3) Neutrophils # (Auto) 10.4 x10^3/uL (1.8-7.7) Lymphocytes # (Auto) 1.0 x10^3/uL (1.0-4.8) Monocytes # (Auto) 0.9 x10^3/uL (0.0-1.1) Eosinophils # (Auto) 0.1 x10^3/uL (0.0-0.7) Basophils # (Auto) 0.0 x10^3/uL (0.0-0.2) Sodium Level 134 mmol/L (136-145) Potassium Level 5.6 mmol/L (3.5-5.1) Chloride Level 98 mmol/L (98-107) Carbon Dioxide Level 24 mmol/L (21-32) Anion Gap 12 (6-14) Blood Urea Nitrogen 57 mg/dL (8-26) Creatinine 3.0 mg/dL (0.7-1.3) Estimated GFR (Cockcroft-Gault) 22.1 BUN/Creatinine Ratio 19 (6-20) Glucose Level 119 mg/dL (70-99) Calcium Level 9.2 mg/dL (8.5-10.1) Total Bilirubin 0.6 mg/dL (0.2-1.0) Aspartate Amino Transf (AST/SGOT) 13 U/L (15-37) Alanine Aminotransferase (ALT/SGPT) 10 U/L (16-63) Alkaline Phosphatase 82 U/L (46-116) Total Protein 8.0 g/dL (6.4-8.2) Albumin 2.7 g/dL (3.4-5.0) Albumin/Globulin Ratio 0.5 (1.0-1.7) Test 03/21/19 07:37 Glucose (Fingerstick) 164 mg/dL (70-99) Assessment and Plan Assessmemt and Plan Problems Medical Problems: (1) D-dimer, elevated Status: Acute (2) Elevated troponin Status: Acute (3) Hyperkalemia Status: Acute (4) Pneumonia Status: Acute (5) Sepsis Status: Acute Comment Review of Relevant I have reviewed the following items gavin (where applicable) has been applied. Labs Laboratory Tests Test 03/19/19 11:44 03/19/19 17:21 03/19/19 20:40 03/20/19 04:40 Glucose (Fingerstick) 122 mg/dL (70-99) 151 mg/dL (70-99) 91 mg/dL (70-99) White Blood Count 17.0 x10^3/uL (4.0-11.0) Red Blood Count 4.58 x10^6/uL (4.30-5.70) Hemoglobin 13.2 g/dL (13.0-17.5) Hematocrit 39.4 % (39.0-53.0) Mean Corpuscular Volume 86 fL (79-100) Mean Corpuscular Hemoglobin 29 pg (25-35) Mean Corpuscular Hemoglobin Concent 34 g/dL (31-37) Red Cell Distribution Width 14.9 % (11.5-14.5) Platelet Count 204 x10^3/uL (140-400) Neutrophils (%) (Auto) 89 % (31-73) Lymphocytes (%) (Auto) 4 % (24-48) Monocytes (%) (Auto) 5 % (0-9) Eosinophils (%) (Auto) 1 % (0-3) Basophils (%) (Auto) 0 % (0-3) Neutrophils # (Auto) 15.2 x10^3/uL (1.8-7.7) Lymphocytes # (Auto) 0.7 x10^3/uL (1.0-4.8) Monocytes # (Auto) 0.9 x10^3/uL (0.0-1.1) Eosinophils # (Auto) 0.2 x10^3/uL (0.0-0.7) Basophils # (Auto) 0.0 x10^3/uL (0.0-0.2) Sodium Level 137 mmol/L (136-145) Potassium Level 4.9 mmol/L (3.5-5.1) Chloride Level 100 mmol/L (98-107) Carbon Dioxide Level 27 mmol/L (21-32) Anion Gap 10 (6-14) Blood Urea Nitrogen 49 mg/dL (8-26) Creatinine 2.9 mg/dL (0.7-1.3) Estimated GFR (Cockcroft-Gault) 23.0 Glucose Level 76 mg/dL (70-99) Calcium Level 9.1 mg/dL (8.5-10.1) Test 03/20/19 07:38 03/20/19 11:58 03/20/19 17:19 03/20/19 20:44 Glucose (Fingerstick) 79 mg/dL (70-99) 104 mg/dL (70-99) 58 mg/dL (70-99) 99 mg/dL (70-99) Test 03/21/19 06:05 03/21/19 07:37 White Blood Count 12.5 x10^3/uL (4.0-11.0) Red Blood Count 4.66 x10^6/uL (4.30-5.70) Hemoglobin 13.4 g/dL (13.0-17.5) Hematocrit 40.2 % (39.0-53.0) Mean Corpuscular Volume 86 fL (79-100) Mean Corpuscular Hemoglobin 29 pg (25-35) Mean Corpuscular Hemoglobin Concent 33 g/dL (31-37) Red Cell Distribution Width 15.2 % (11.5-14.5) Platelet Count 233 x10^3/uL (140-400) Neutrophils (%) (Auto) 83 % (31-73) Lymphocytes (%) (Auto) 8 % (24-48) Monocytes (%) (Auto) 8 % (0-9) Eosinophils (%) (Auto) 1 % (0-3) Basophils (%) (Auto) 0 % (0-3) Neutrophils # (Auto) 10.4 x10^3/uL (1.8-7.7) Lymphocytes # (Auto) 1.0 x10^3/uL (1.0-4.8) Monocytes # (Auto) 0.9 x10^3/uL (0.0-1.1) Eosinophils # (Auto) 0.1 x10^3/uL (0.0-0.7) Basophils # (Auto) 0.0 x10^3/uL (0.0-0.2) Sodium Level 134 mmol/L (136-145) Potassium Level 5.6 mmol/L (3.5-5.1) Chloride Level 98 mmol/L (98-107) Carbon Dioxide Level 24 mmol/L (21-32) Anion Gap 12 (6-14) Blood Urea Nitrogen 57 mg/dL (8-26) Creatinine 3.0 mg/dL (0.7-1.3) Estimated GFR (Cockcroft-Gault) 22.1 BUN/Creatinine Ratio 19 (6-20) Glucose Level 119 mg/dL (70-99) Calcium Level 9.2 mg/dL (8.5-10.1) Total Bilirubin 0.6 mg/dL (0.2-1.0) Aspartate Amino Transf (AST/SGOT) 13 U/L (15-37) Alanine Aminotransferase (ALT/SGPT) 10 U/L (16-63) Alkaline Phosphatase 82 U/L (46-116) Total Protein 8.0 g/dL (6.4-8.2) Albumin 2.7 g/dL (3.4-5.0) Albumin/Globulin Ratio 0.5 (1.0-1.7) Glucose (Fingerstick) 164 mg/dL (70-99) Laboratory Tests Test 03/20/19 11:58 03/20/19 17:19 03/20/19 20:44 03/21/19 06:05 Glucose (Fingerstick) 104 mg/dL (70-99) 58 mg/dL (70-99) 99 mg/dL (70-99) White Blood Count 12.5 x10^3/uL (4.0-11.0) Red Blood Count 4.66 x10^6/uL (4.30-5.70) Hemoglobin 13.4 g/dL (13.0-17.5) Hematocrit 40.2 % (39.0-53.0) Mean Corpuscular Volume 86 fL (79-100) Mean Corpuscular Hemoglobin 29 pg (25-35) Mean Corpuscular Hemoglobin Concent 33 g/dL (31-37) Red Cell Distribution Width 15.2 % (11.5-14.5) Platelet Count 233 x10^3/uL (140-400) Neutrophils (%) (Auto) 83 % (31-73) Lymphocytes (%) (Auto) 8 % (24-48) Monocytes (%) (Auto) 8 % (0-9) Eosinophils (%) (Auto) 1 % (0-3) Basophils (%) (Auto) 0 % (0-3) Neutrophils # (Auto) 10.4 x10^3/uL (1.8-7.7) Lymphocytes # (Auto) 1.0 x10^3/uL (1.0-4.8) Monocytes # (Auto) 0.9 x10^3/uL (0.0-1.1) Eosinophils # (Auto) 0.1 x10^3/uL (0.0-0.7) Basophils # (Auto) 0.0 x10^3/uL (0.0-0.2) Sodium Level 134 mmol/L (136-145) Potassium Level 5.6 mmol/L (3.5-5.1) Chloride Level 98 mmol/L (98-107) Carbon Dioxide Level 24 mmol/L (21-32) Anion Gap 12 (6-14) Blood Urea Nitrogen 57 mg/dL (8-26) Creatinine 3.0 mg/dL (0.7-1.3) Estimated GFR (Cockcroft-Gault) 22.1 BUN/Creatinine Ratio 19 (6-20) Glucose Level 119 mg/dL (70-99) Calcium Level 9.2 mg/dL (8.5-10.1) Total Bilirubin 0.6 mg/dL (0.2-1.0) Aspartate Amino Transf (AST/SGOT) 13 U/L (15-37) Alanine Aminotransferase (ALT/SGPT) 10 U/L (16-63) Alkaline Phosphatase 82 U/L (46-116) Total Protein 8.0 g/dL (6.4-8.2) Albumin 2.7 g/dL (3.4-5.0) Albumin/Globulin Ratio 0.5 (1.0-1.7) Test 03/21/19 07:37 Glucose (Fingerstick) 164 mg/dL (70-99) Microbiology 03/17/19 Blood Culture - Preliminary, Resulted NO GROWTH AFTER 3 DAYS Medications Current Medications Aspirin (Children'S Aspirin) 324 mg 1X STAT PO Last administered on 03/17/19at 14:31; Start 03/17/19 at 14:11; Stop 03/17/19 at 14:13; Status DC Levofloxacin/ Dextrose 150 ml @ 100 mls/hr 1X ONCE IV Last administered on 03/17/19at 15:52; Start 03/17/19 at 15:15; Stop 03/17/19 at 16:44; Status DC Cefepime HCl (Maxipime) 2 gm 1X ONCE IVP Last administered on 03/17/19at 15:47; Start 03/17/19 at 15:15; Stop 03/17/19 at 15:16; Status DC Vancomycin HCl 2 gm/Sodium Chloride 500 ml @ 250 mls/hr 1X ONCE IV Last administered on 03/17/19at 18:44; Start 03/17/19 at 16:00; Stop 03/17/19 at 17:59; Status DC Calcium Gluconate (Calcium Gluconate) 1,000 mg 1X STAT IVP ; Start 03/17/19 at 15:27; Stop 03/17/19 at 15:28; Status UNV Calcium Gluconate (Calcium Gluconate) 1,000 mg 1X IVP Last administered on 02/24 15:42; Start 03/17/19 at 15:35; Stop 03/18/19 at 08:42; Status DC Calcium Gluconate (Calcium Gluconate) 1,000 mg 1X IVP ; Start 03/17/19 at 15:40; Status UNV Insulin Human Regular (HumuLIN R VIAL) 10 unit 1X STAT IV Last administered on 03/17/19at 15:53; Start 03/17/19 at 15:27; Stop 03/17/19 at 15:32; Status DC Dextrose (Dextrose 50%-Water Syringe) 25 gm 1X STAT IV Last administered on 03/17/19 15:50; Start 03/17/19 at 15:27; Stop 03/17/19 at 15:32; Status DC Sodium Polystyrene Sulfonate (Kayexalate) 15 gm 1X STAT PO Last administered on 03/17/19 15:50; Start 03/17/19 at 15:27; Stop 03/17/19 at 15:32; Status DC Calcium Gluconate (Calcium Gluconate) 1,000 mg 1X ONCE IV Last administered on 03/17/19 16:44; Start 03/17/19 at 16:15; Stop 03/17/19 at 16:16; Status DC Calcium Gluconate (Calcium Gluconate) 1,000 mg 1X ONCE IV Last administered on 03/17/19at 16:44; Start 03/17/19 at 16:20; Stop 03/17/19 at 16:21; Status DC Fentanyl Citrate (Fentanyl 2ml Vial) 75 mcg 1X ONCE IV Last administered on 03/17/19at 17:05; Start 03/17/19 at 17:00; Stop 03/17/19 at 17:01; Status DC Aspirin (Ecotrin) 81 mg DAILYWBKFT PO Last administered on 03/21/19 09:02; Start 03/17/19 at 19:30 Atorvastatin Calcium (Lipitor) 40 mg QHS PO Last administered on 03/20/19at 21:11; Start 03/17/19 at 21:00 Clopidogrel Bisulfate (Plavix) 75 mg DAILYWBKFT PO Last administered on 03/21/19 09:02; Start 03/17/19 at 19:30 Cyclobenzaprine HCl (Flexeril) 10 mg PRN TID PRN PO MUSCLE SPASMS Last admin istered on 03/19/19 12:11; Start 03/17/19 at 18:30 Furosemide (Lasix) 40 mg [id number] PO Last administered on 03/21/19 09:03; Start 03/17/19 at 19:00 Gabapentin (Neurontin) 300 mg BID PO Last administered on 03/21/19 09:02; Start 03/17/19 at 21:00 Labetalol HCl (Trandate) 100 mg BID PO Last administered on 03/21/19 09:03; Start 03/17/19 at 21:00 Spironolactone (Aldactone) 25 mg DAILY PO Last administered on 03/21/19 09:02; Start 03/17/19 at 19:30 Temazepam (Restoril) 30 mg QHS PO Last administered on 03/20/19 22:57; Start 03/17/19 at 21:00 Trazodone HCl (Desyrel) 50 mg QHS PO Last administered on 03/20/19 21:11; Start 03/17/19 at 21:00 Amitriptyline HCl (Elavil) 100 mg QHS PO ; Start 03/17/19 at 21:00; Status UNV Glimepiride (Amaryl) 4 mg BID PO Last administered on 03/21/19 09:02; Start 03/17/19 at 21:00 Acetaminophen/ Hydrocodone Bitart (Lortab 7.5/325) 1 tab PRN Q6HRS PRN PO PAIN; Start 03/17/19 at 18:45; Stop 03/17/19 at 18:41; Status DC Pantoprazole Sodium (Protonix) 40 mg BIDAC PO Last administered on 03/21/19 09:02; Start 03/17/19 at 19:30 Ropinirole HCl (Requip) 0.5 mg QHS PO Last administered on 03/20/19 21:12; Start 03/17/19 at 21:00 Sacubitril/ Valsartan (Entresto 49 Mg-51 Mg) 2 tab BID PO Last administered on 03/21/19 09:03; Start 03/17/19 at 21:00 Linagliptin (Tradjenta) 5 mg DAILY PO Last administered on 03/21/19 09:02; Start 03/17/19 at 19:30 Non-Formulary Medication ([Aspirin] ) 325 mg DAILYWBKFT PO ; Start 03/18/19 at 08:00; Status UNV Acetaminophen/ Hydrocodone Bitart (Lortab 10325) 1 tab PRN Q6HRS PRN PO PAIN Last administered on 03/21/19at 06:18; Start 03/17/19 at 18:45 Enoxaparin Sodium (Lovenox 100mg Syringe) 90 mg QHS SQ Last administered on 03/17/19at 21:15; Start 03/17/19 at 21:00; Stop 03/18/19 at 11:39; Status DC Info (Anti-Coagulation Monitoring By Pharmacy) 1 each PRN DAILY PRN MC SEE COMMENTS Last administered on 03/18/19at 09:01; Start 03/18/19 at 08:30; Stop 03/19/19 at 13:50; Status DC Piperacillin Sod/ Tazobactam Sod (Zosyn Per Pharmacy) 1 each PRN DAILY PRN MC SEE COMMENTS; Start 03/18/19 at 08:45 Doxycycline Hyclate (Vibra-Tab) 100 mg BID PO Last administered on 03/21/19at 09:02; Start 03/18/19 at 09:00 Linezolid (Zyvox) 600 mg BID PO Last administered on 03/21/19 09:02; Start 03/18/19 at 09:00 Piperacillin Sod/ Tazobactam Sod 3.375 gm/Sodium Chloride 50 ml @ 100 mls/hr Q6HRS IV Last administered on 03/21/19at 06:15; Start 03/18/19 at 09:00 Lactobacillus Rhamnosus (Culturelle) 1 cap BID PO Last administered on 03/21/19at 09:02; Start 03/18/19 at 21:00 Pantoprazole Sodium (Protonix) 40 mg DAILYAC PO ; Start 03/19/19 at 07:30; Stop 03/20/19 at 05:59; Status DC Pantoprazole Sodium (Protonix) 40 mg 1X ONCE PO ; Start 03/18/19 at 10:30; Stop 03/18/19 at 10:31; Status DC Enoxaparin Sodium (Lovenox 40mg Syringe) 40 mg Q24H SQ Last administered on 03/20/19at 17:11; Start 03/18/19 at 15:00 Furosemide (Lasix) 40 mg STK-MED ONCE .ROUTE ; Start 03/19/19 at 15:45; Stop 03/19/19 at 18:09; Status DC Pantoprazole Sodium (Protonix) 40 mg STK-MED ONCE PO ; Start 03/19/19 at 15:45; Stop 03/19/19 at 18:11; Status DC Piperacillin Sod/ Tazobactam Sod (Zosyn) 3.375 gm STK-MED ONCE IV ; Start 03/19/19 at 15:45; Stop 03/19/19 at 18:11; Status DC Enoxaparin Sodium (Lovenox 40mg Syringe) 40 mg STK-MED ONCE SQ ; Start 03/19/19 at 15:45; Stop 03/19/19 at 18:11; Status DC Amlodipine Besylate (Norvasc) 5 mg DAILY PO Last administered on 03/20/19at 08:41; Start 03/20/19 at 09:00; Stop 03/20/19 at 23:09; Status DC Amlodipine Besylate (Norvasc) 5 mg 1X ONCE PO Last administered on 03/19/19at 23:51; Start 03/19/19 at 23:30; Stop 03/19/19 at 23:31; Status DC Amlodipine Besylate (Norvasc) 10 mg DAILY PO Last administered on 03/21/19at 09:04; Start 03/21/19 at 09:00 Amlodipine Besylate (Norvasc) 5 mg 1X ONCE PO Last administered on 03/20/19at 23:19; Start 03/20/19 at 23:30; Stop 03/20/19 at 23:31; Status DC Active Scripts Active Trazodone Hcl 50 Mg Tablet 1 Tab PO QHS Furosemide 40 Mg Tablet 40 Mg PO [id number] Aspirin Ec (Aspirin) 81 Mg Tablet.dr 81 Mg PO DAILYWBKFT 60 Days Atorvastatin Calcium 40 Mg Tablet 40 Mg PO QHS 30 Days Glimepiride 4 Mg Tablet 1 Tab PO BID Plavix (Clopidogrel Bisulfate) 75 Mg Tablet 75 Mg PO DAILYWBKFT [Aspirin] 325 MG Tablet 325 Mg PO DAILYWBKFT Januvia (Sitagliptin Phosphate) 100 Mg Tablet 1 Tab PO DAILY Reported Labetalol Hcl 100 Mg Tablet 1 Tab PO BID Protonix (Pantoprazole Sodium) 20 Mg Tablet.dr 2 Tab PO BID Entresto 97 mg-103 mg Tablet (Sacubitril/Valsartan) 1 Each Tablet 1 Each PO BID Gabapentin 300 Mg Capsule 300 Mg PO BID Temazepam 30 Mg Capsule 1 Cap PO QHS Potassium Chloride 20 Meq Tablet.er 20 Meq PO DAILY Spironolactone 25 Mg Tablet 1 Tab PO DAILY Cyclobenzaprine Hcl 10 Mg Tablet 1 Tab PO TID PRN Ropinirole Hcl 2 Mg Tablet 0.5 Mg PO QHS Hydrocodone-Apap 10-300 (Hydrocodone Bit/Acetaminophen) 1 Each Tablet 1 Tab PO Q6HRS PRN Amitriptyline Hcl 100 Mg Tablet 1 Tab PO QHS Vitals/I & O Vital Sign - Last 24 Hours 03/20/19 03/20/19 03/20/19 03/20/19 12:36 15:00 17:12 19:00 Temp 97.9 97.9 Pulse 94 Resp 20 B/P (MAP) 122/72 (89) Pulse Ox 94 98 98 O2 Delivery Room Air Room Air Room Air Room Air O2 Flow Rate 2.0 2.0 03/20/19 03/20/19 03/20/19 03/20/19 19:15 20:08 21:11 21:12 Temp 97.8 97.8 Pulse 98 98 98 Resp 17 B/P (MAP) 139/89 (106) 139/89 139/89 Pulse Ox 95 O2 Delivery Room Air Room Air 03/20/19 03/20/19 03/20/19 03/20/19 22:57 23:10 23:19 23:57 Temp 97.5 97.5 Pulse 104 106 Resp 18 B/P (MAP) 170/108 (128) 170/108 Pulse Ox 95 O2 Delivery Room Air Room Air Room Air 03/21/19 03/21/19 03/21/19 03/21/19 03:06 06:18 07:00 08:00 Temp 98.1 98.3 98.1 98.3 Pulse 101 101 Resp 18 18 B/P (MAP) 144/84 (104) 179/96 (123) Pulse Ox 95 94 O2 Delivery Room Air Room Air Room Air Room Air O2 Flow Rate 2.0 03/21/19 03/21/19 03/21/19 03/21/19 09:03 09:03 09:04 09:36 Pulse 101 101 101 Resp 18 B/P (MAP) 179/96 179/96 179/96 Pulse Ox 94 O2 Delivery Room Air O2 Flow Rate 2.0 Intake and Output 03/20/19 03/20/19 03/21/19 15:00 23:00 07:00 Intake Total 100 ml 300 ml Output Total 500 ml 2200 ml Balance -500 ml 100 ml -1900 ml FRANNY ROJAS MD Mar 21, 2019 11:03
[2019-03-21] MEDS ORDERED: SODIUM POLYSTYRENE SULFON/SORB 15 GM/60 ML ORAL.SUSP PO ONE (13:00)
--- NOTE | 2019-03-21 13:10 | PDOC ---
PROGRESS NOTES Subjective Subjective SEEN IN FOLLOW UP OF CKD4 Objective Objective Vital Signs Date Time Temp Pulse Resp B/P (MAP) Pulse Ox O2 Delivery O2 Flow Rate FiO2 03/21/19 11:00 98.1 103 18 157/87 (110) 94 Room Air 98.1 03/21/19 09:36 2.0 Intake and Output 03/21/19 07:00 Intake Total 400 ml Output Total 2700 ml Balance -2300 ml Intake Oral 300 ml Blood Product IV Normal Saline Flush 100 ml Output Urine Total 2700 ml Physical Exam Abdomen: Normal bowel sounds, Soft, No tenderness, No hepatosplenomegaly, No masses Heart: Regular rate, Normal S1, Normal S2, No murmurs, Gallops Extremities: No clubbing, No cyanosis, No edema, Normal pulses, No tenderness/swelling General: Alert, Oriented X3, Cooperative, No acute distress Lungs: Clear to auscultation Psych/Mental Status: Mental status NL Diagnosis RENAL FAILURE: Chronic (CKD stage IV) Other HYPERKALEMIA Assessment Assessment Problems Medical Problems: (1) D-dimer, elevated Status: Acute (2) Elevated troponin Status: Acute (3) Hyperkalemia Status: Acute (4) Pneumonia Status: Acute (5) Sepsis Status: Acute Plan Plan of Care NOW HAS HYPERKALEMIA. WILL STOP ALDACTONE AND GIVE KAYEXALATE. DISC WITH PATIENT AND NURSE Comment Review of Relevant I have reviewed the following items gavin (where applicable) has been applied. Labs Laboratory Tests Test 03/19/19 17:21 03/19/19 20:40 03/20/19 04:40 03/20/19 07:38 Glucose (Fingerstick) 151 mg/dL (70-99) 91 mg/dL (70-99) 79 mg/dL (70-99) White Blood Count 17.0 x10^3/uL (4.0-11.0) Red Blood Count 4.58 x10^6/uL (4.30-5.70) Hemoglobin 13.2 g/dL (13.0-17.5) Hematocrit 39.4 % (39.0-53.0) Mean Corpuscular Volume 86 fL (79-100) Mean Corpuscular Hemoglobin 29 pg (25-35) Mean Corpuscular Hemoglobin Concent 34 g/dL (31-37) Red Cell Distribution Width 14.9 % (11.5-14.5) Platelet Count 204 x10^3/uL (140-400) Neutrophils (%) (Auto) 89 % (31-73) Lymphocytes (%) (Auto) 4 % (24-48) Monocytes (%) (Auto) 5 % (0-9) Eosinophils (%) (Auto) 1 % (0-3) Basophils (%) (Auto) 0 % (0-3) Neutrophils # (Auto) 15.2 x10^3/uL (1.8-7.7) Lymphocytes # (Auto) 0.7 x10^3/uL (1.0-4.8) Monocytes # (Auto) 0.9 x10^3/uL (0.0-1.1) Eosinophils # (Auto) 0.2 x10^3/uL (0.0-0.7) Basophils # (Auto) 0.0 x10^3/uL (0.0-0.2) Sodium Level 137 mmol/L (136-145) Potassium Level 4.9 mmol/L (3.5-5.1) Chloride Level 100 mmol/L (98-107) Carbon Dioxide Level 27 mmol/L (21-32) Anion Gap 10 (6-14) Blood Urea Nitrogen 49 mg/dL (8-26) Creatinine 2.9 mg/dL (0.7-1.3) Estimated GFR (Cockcroft-Gault) 23.0 Glucose Level 76 mg/dL (70-99) Calcium Level 9.1 mg/dL (8.5-10.1) Test 03/20/19 11:58 03/20/19 17:19 03/20/19 20:44 03/21/19 06:05 Glucose (Fingerstick) 104 mg/dL (70-99) 58 mg/dL (70-99) 99 mg/dL (70-99) White Blood Count 12.5 x10^3/uL (4.0-11.0) Red Blood Count 4.66 x10^6/uL (4.30-5.70) Hemoglobin 13.4 g/dL (13.0-17.5) Hematocrit 40.2 % (39.0-53.0) Mean Corpuscular Volume 86 fL (79-100) Mean Corpuscular Hemoglobin 29 pg (25-35) Mean Corpuscular Hemoglobin Concent 33 g/dL (31-37) Red Cell Distribution Width 15.2 % (11.5-14.5) Platelet Count 233 x10^3/uL (140-400) Neutrophils (%) (Auto) 83 % (31-73) Lymphocytes (%) (Auto) 8 % (24-48) Monocytes (%) (Auto) 8 % (0-9) Eosinophils (%) (Auto) 1 % (0-3) Basophils (%) (Auto) 0 % (0-3) Neutrophils # (Auto) 10.4 x10^3/uL (1.8-7.7) Lymphocytes # (Auto) 1.0 x10^3/uL (1.0-4.8) Monocytes # (Auto) 0.9 x10^3/uL (0.0-1.1) Eosinophils # (Auto) 0.1 x10^3/uL (0.0-0.7) Basophils # (Auto) 0.0 x10^3/uL (0.0-0.2) Sodium Level 134 mmol/L (136-145) Potassium Level 5.6 mmol/L (3.5-5.1) Chloride Level 98 mmol/L (98-107) Carbon Dioxide Level 24 mmol/L (21-32) Anion Gap 12 (6-14) Blood Urea Nitrogen 57 mg/dL (8-26) Creatinine 3.0 mg/dL (0.7-1.3) Estimated GFR (Cockcroft-Gault) 22.1 BUN/Creatinine Ratio 19 (6-20) Glucose Level 119 mg/dL (70-99) Calcium Level 9.2 mg/dL (8.5-10.1) Total Bilirubin 0.6 mg/dL (0.2-1.0) Aspartate Amino Transf (AST/SGOT) 13 U/L (15-37) Alanine Aminotransferase (ALT/SGPT) 10 U/L (16-63) Alkaline Phosphatase 82 U/L (46-116) Total Protein 8.0 g/dL (6.4-8.2) Albumin 2.7 g/dL (3.4-5.0) Albumin/Globulin Ratio 0.5 (1.0-1.7) Test 03/21/19 07:37 03/21/19 11:03 Glucose (Fingerstick) 164 mg/dL (70-99) 187 mg/dL (70-99) Laboratory Tests Test 03/20/19 17:19 03/20/19 20:44 03/21/19 06:05 03/21/19 07:37 Glucose (Fingerstick) 58 mg/dL (70-99) 99 mg/dL (70-99) 164 mg/dL (70-99) White Blood Count 12.5 x10^3/uL (4.0-11.0) Red Blood Count 4.66 x10^6/uL (4.30-5.70) Hemoglobin 13.4 g/dL (13.0-17.5) Hematocrit 40.2 % (39.0-53.0) Mean Corpuscular Volume 86 fL (79-100) Mean Corpuscular Hemoglobin 29 pg (25-35) Mean Corpuscular Hemoglobin Concent 33 g/dL (31-37) Red Cell Distribution Width 15.2 % (11.5-14.5) Platelet Count 233 x10^3/uL (140-400) Neutrophils (%) (Auto) 83 % (31-73) Lymphocytes (%) (Auto) 8 % (24-48) Monocytes (%) (Auto) 8 % (0-9) Eosinophils (%) (Auto) 1 % (0-3) Basophils (%) (Auto) 0 % (0-3) Neutrophils # (Auto) 10.4 x10^3/uL (1.8-7.7) Lymphocytes # (Auto) 1.0 x10^3/uL (1.0-4.8) Monocytes # (Auto) 0.9 x10^3/uL (0.0-1.1) Eosinophils # (Auto) 0.1 x10^3/uL (0.0-0.7) Basophils # (Auto) 0.0 x10^3/uL (0.0-0.2) Sodium Level 134 mmol/L (136-145) Potassium Level 5.6 mmol/L (3.5-5.1) Chloride Level 98 mmol/L (98-107) Carbon Dioxide Level 24 mmol/L (21-32) Anion Gap 12 (6-14) Blood Urea Nitrogen 57 mg/dL (8-26) Creatinine 3.0 mg/dL (0.7-1.3) Estimated GFR (Cockcroft-Gault) 22.1 BUN/Creatinine Ratio 19 (6-20) Glucose Level 119 mg/dL (70-99) Calcium Level 9.2 mg/dL (8.5-10.1) Total Bilirubin 0.6 mg/dL (0.2-1.0) Aspartate Amino Transf (AST/SGOT) 13 U/L (15-37) Alanine Aminotransferase (ALT/SGPT) 10 U/L (16-63) Alkaline Phosphatase 82 U/L (46-116) Total Protein 8.0 g/dL (6.4-8.2) Albumin 2.7 g/dL (3.4-5.0) Albumin/Globulin Ratio 0.5 (1.0-1.7) Test 03/21/19 11:03 Glucose (Fingerstick) 187 mg/dL (70-99) Microbiology 03/17/19 Blood Culture - Preliminary, Resulted NO GROWTH AFTER 3 DAYS Medications Current Medications Aspirin (Children'S Aspirin) 324 mg 1X STAT PO Last administered on 03/17/19at 14:31; Start 03/17/19 at 14:11; Stop 03/17/19 at 14:13; Status DC Levofloxacin/ Dextrose 150 ml @ 100 mls/hr 1X ONCE IV Last administered on 03/17/19at 15:52; Start 03/17/19 at 15:15; Stop 03/17/19 at 16:44; Status DC Cefepime HCl (Maxipime) 2 gm 1X ONCE IVP Last administered on 03/17/19at 15:47; Start 03/17/19 at 15:15; Stop 03/17/19 at 15:16; Status DC Vancomycin HCl 2 gm/Sodium Chloride 500 ml @ 250 mls/hr 1X ONCE IV Last administered on 03/17/19at 18:44; Start 03/17/19 at 16:00; Stop 03/17/19 at 17:59; Status DC Calcium Gluconate (Calcium Gluconate) 1,000 mg 1X STAT IVP ; Start 03/17/19 at 15:27; Stop 03/17/19 at 15:28; Status UNV Calcium Gluconate (Calcium Gluconate) 1,000 mg 1X IVP Last administered on 03/17/19at 15:42; Start 03/17/19 at 15:35; Stop 03/18/19 at 08:42; Status DC Calcium Gluconate (Calcium Gluconate) 1,000 mg 1X IVP ; Start 03/17/19 at 15:40; Status UNV Insulin Human Regular (HumuLIN R VIAL) 10 unit 1X STAT IV Last administered on 03/17/19at 15:53; Start 03/17/19 at 15:27; Stop 03/17/19 at 15:32; Status DC Dextrose (Dextrose 50%-Water Syringe) 25 gm 1X STAT IV Last administered on 03/17/19at 15:50; Start 03/17/19 at 15:27; Stop 03/17/19 at 15:32; Status DC Sodium Polystyrene Sulfonate (Kayexalate) 15 gm 1X STAT PO Last administered on 03/17/19at 15:50; Start 03/17/19 at 15:27; Stop 03/17/19 at 15:32; Status DC Calcium Gluconate (Calcium Gluconate) 1,000 mg 1X ONCE IV Last administered on 03/17/19at 16:44; Start 03/17/19 at 16:15; Stop 03/17/19 at 16:16; Status DC Calcium Gluconate (Calcium Gluconate) 1,000 mg 1X ONCE IV Last administered on 03/17/19at 16:44; Start 03/17/19 at 16:20; Stop 03/17/19 at 16:21; Status DC Fentanyl Citrate (Fentanyl 2ml Vial) 75 mcg 1X ONCE IV Last administered on 03/17/19 17:05; Start 03/17/19 at 17:00; Stop 03/17/19 at 17:01; Status DC Aspirin (Ecotrin) 81 mg DAILYWBKFT PO Last administered on 03/21/19 09:02; Start 03/17/19 at 19:30 Atorvastatin Calcium (Lipitor) 40 mg QHS PO Last administered on 03/20/19 21:11; Start 03/17/19 at 21:00 Clopidogrel Bisulfate (Plavix) 75 mg DAILYWBKFT PO Last administered on 03/21/19 09:02; Start 03/17/19 at 19:30 Cyclobenzaprine HCl (Flexeril) 10 mg PRN TID PRN PO MUSCLE SPASMS Last administered on 03/19/19 12:11; Start 03/17/19 at 18:30 Furosemide (Lasix) 40 mg BID94 PO Last administered on 03/21/19 09:03; Start 03/17/19 at 19:00 Gabapentin (Neurontin) 300 mg BID PO Last administered on 03/21/19 09:02; Start 03/17/19 at 21:00 Labetalol HCl (Trandate) 100 mg BID PO Last administered on 03/21/19 09:03; Start 03/17/19 at 21:00; Stop 03/21/19 at 12:47; Status DC Spironolactone (Aldactone) 25 mg DAILY PO Last administered on 03/21/19 09:02; Start 03/17/19 at 19:30; Stop 03/21/19 at 12:27; Status DC Temazepam (Restoril) 30 mg QHS PO Last administered on 03/20/19 22:57; Start 03/17/19 at 21:00 Trazodone HCl (Desyrel) 50 mg QHS PO Last administered on 03/20/19 21:11; Start 03/17/19 at 21:00 Amitriptyline HCl (Elavil) 100 mg QHS PO ; Start 03/17/19 at 21:00; Status UNV Glimepiride (Amaryl) 4 mg BID PO Last administered on 03/21/19 09:02; Start 03/17/19 at 21:00 Acetaminophen/ Hydrocodone Bitart (Lortab 7.5/325) 1 tab PRN Q6HRS PRN PO PAIN; Start 03/17/19 at 18:45; Stop 03/17/19 at 18:41; Status DC Pantoprazole Sodium (Protonix) 40 mg BIDAC PO Last administered on 03/21/19 09:02; Start 03/17/19 at 19:30 Ropinirole HCl (Requip) 0.5 mg QHS PO Last administered on 03/20/19 21:12; Start 03/17/19 at 21:00 Sacubitril/ Valsartan (Entresto 49 Mg-51 Mg) 2 tab BID PO Last administered on 03/21/19 09:03; Start 03/17/19 at 21:00 Linagliptin (Tradjenta) 5 mg DAILY PO Last administered on 03/21/19 09:02; Start 03/17/19 at 19:30 Non-Formulary Medication ([Aspirin] ) 325 mg DAILYWBKFT PO ; Start 03/18/19 at 08:00; Status UNV Acetaminophen/ Hydrocodone Bitart (Lortab 10/325) 1 tab PRN Q6HRS PRN PO PAIN Last administered on 03/21/19at 06:18; Start 03/17/19 at 18:45 Enoxaparin Sodium (Lovenox 100mg Syringe) 90 mg QHS SQ Last administered on 03/17/19at 21:15; Start 03/17/19 at 21:00; Stop 03/18/19 at 11:39; Status DC Info (Anti-Coagulation Monitoring By Pharmacy) 1 each PRN DAILY PRN MC SEE COMMENTS Last administered on 03/18/19at 09:01; Start 03/18/19 at 08:30; Stop 03/19/19 at 13:50; Status DC Piperacillin Sod/ Tazobactam Sod (Zosyn Per Pharmacy) 1 each PRN DAILY PRN MC SEE COMMENTS; Start 03/18/19 at 08:45 Doxycycline Hyclate (Vibra-Tab) 100 mg BID PO Last administered on 03/21/19at 09:02; Start 03/18/19 at 09:00 Linezolid (Zyvox) 600 mg BID PO Last administered on 03/21/19at 09:02; Start 03/18/19 at 09:00 Piperacillin Sod/ Tazobactam Sod 3.375 gm/Sodium Chloride 50 ml @ 100 mls/hr Q6HRS IV Last administered on 03/21/19at 12:37; Start 03/18/19 at 09:00 Lactobacillus Rhamnosus (Culturelle) 1 cap BID PO Last administered on 03/21/19at 09:02; Start 03/18/19 at 21:00 Pantoprazole Sodium (Protonix) 40 mg DAILYAC PO ; Start 03/19/19 at 07:30; Stop 03/20/19 at 05:59; Status DC Pantoprazole Sodium (Protonix) 40 mg 1X ONCE PO ; Start 03/18/19 at 10:30; Stop 03/18/19 at 10:31; Status DC Enoxaparin Sodium (Lovenox 40mg Syringe) 40 mg Q24H SQ Last administered on 03/20/19at 17:11; Start 03/18/19 at 15:00 Furosemide (Lasix) 40 mg STK-MED ONCE .ROUTE ; Start 03/19/19 at 15:45; Stop 03/19/19 at 18:09; Status DC Pantoprazole Sodium (Protonix) 40 mg STK-MED ONCE PO ; Start 03/19/19 at 15:45; Stop 03/19/19 at 18:11; Status DC Piperacillin Sod/ Tazobactam Sod (Zosyn) 3.375 gm STK-MED ONCE IV ; Start 03/19/19 at 15:45; Stop 03/19/19 at 18:11; Status DC Enoxaparin Sodium (Lovenox 40mg Syringe) 40 mg STK-MED ONCE SQ ; Start 03/19/19 at 15:45; Stop 03/19/19 at 18:11; Status DC Amlodipine Besylate (Norvasc) 5 mg DAILY PO Last administered on 03/20/19at 08:41; Start 03/20/19 at 09:00; Stop 03/20/19 at 23:09; Status DC Amlodipine Besylate (Norvasc) 5 mg 1X ONCE PO Last administered on 03/19/19at 23:51; Start 03/19/19 at 23:30; Stop 03/19/19 at 23:31; Status DC Amlodipine Besylate (Norvasc) 10 mg DAILY PO Last administered on 03/21/19at 09:04; Start 03/21/19 at 09:00 Amlodipine Besylate (Norvasc) 5 mg 1X ONCE PO Last administered on 03/20/19at 23:19; Start 03/20/19 at 23:30; Stop 03/20/19 at 23:31; Status DC Sodium Polystyrene Sulfonate (Kayexalate) 15 gm 1X ONCE PO Last administered on 03/21/19at 12:37; Start 03/21/19 at 13:00; Stop 03/21/19 at 13:01; Status DC Labetalol HCl (Trandate) 200 mg BID PO ; Start 03/21/19 at 13:00 Active Scripts Active Trazodone Hcl 50 Mg Tablet 1 Tab PO QHS Furosemide 40 Mg Tablet 40 Mg PO [id number] Aspirin Ec (Aspirin) 81 Mg Tablet. 81 Mg PO DAILYWBKFT 60 Days Atorvastatin Calcium 40 Mg Tablet 40 Mg PO QHS 30 Days Glimepiride 4 Mg Tablet 1 Tab PO BID Plavix (Clopidogrel Bisulfate) 75 Mg Tablet 75 Mg PO DAILYWBKFT [Aspirin] 325 MG Tablet 325 Mg PO DAILYWBKFT Januvia (Sitagliptin Phosphate) 100 Mg Tablet 1 Tab PO DAILY Reported Labetalol Hcl 100 Mg Tablet 1 Tab PO BID Protonix (Pantoprazole Sodium) 20 Mg Tablet.dr 2 Tab PO BID Entresto 97 mg-103 mg Tablet (Sacubitril/Valsartan) 1 Each Tablet 1 Each PO BID Gabapentin 300 Mg Capsule 300 Mg PO BID Temazepam 30 Mg Capsule 1 Cap PO QHS Potassium Chloride 20 Meq Tablet.er 20 Meq PO DAILY Spironolactone 25 Mg Tablet 1 Tab PO DAILY Cyclobenzaprine Hcl 10 Mg Tablet 1 Tab PO TID PRN Ropinirole Hcl 2 Mg Tablet 0.5 Mg PO QHS Hydrocodone-Apap 10-300 (Hydrocodone Bit/Acetaminophen) 1 Each Tablet 1 Tab PO Q6HRS PRN Amitriptyline Hcl 100 Mg Tablet 1 Tab PO QHS Vitals/I & O Vital Sign - Last 24 Hours 03/20/19 03/20/19 03/20/19 03/20/19 15:00 17:12 19:00 19:15 Temp 97.9 97.8 97.9 97.8 Pulse 94 98 Resp 20 17 B/P (MAP) 122/72 (89) 139/89 (106) Pulse Ox 98 98 95 O2 Delivery Room Air Room Air Room Air Room Air O2 Flow Rate 2.0 03/20/19 03/20/19 03/20/19 03/20/19 20:08 21:11 21:12 22:57 Pulse 98 98 B/P (MAP) 139/89 139/89 O2 Delivery Room Air Room Air 03/20/19 03/20/19 03/20/19 03/21/19 23:10 23:19 23:57 03:06 Temp 97.5 98.1 97.5 98.1 Pulse 104 106 101 Resp 18 18 B/P (MAP) 170/108 (128) 170/108 144/84 (104) Pulse Ox 95 95 O2 Delivery Room Air Room Air Room Air 03/21/19 03/21/19 03/21/19 03/21/19 06:18 07:00 08:00 09:03 Temp 98.3 98.3 Pulse 101 101 Resp 18 B/P (MAP) 179/96 (123) 179/96 Pulse Ox 94 O2 Delivery Room Air Room Air Room Air O2 Flow Rate 2.0 03/21/19 03/21/19 03/21/19 03/21/19 09:03 09:04 09:36 11:00 Temp 98.1 98.1 Pulse 101 101 103 Resp 18 18 B/P (MAP) 179/96 179/96 157/87 (110) Pulse Ox 94 94 O2 Delivery Room Air Room Air O2 Flow Rate 2.0 Intake and Output 03/20/19 03/20/19 03/21/19 15:00 23:00 07:00 Intake Total 100 ml 300 ml Output Total 500 ml 2200 ml Balance -500 ml 100 ml -1900 ml SOLO VALENTIN MD Mar 21, 2019 13:10
[2019-03-21 14:58] VITALS: BP 128/89
[2019-03-21] MEDS ORDERED: LORazepam 0.5 MG TABLET PO PRN (16:45)
[2019-03-21] MEDS: ENOXAPARIN 40 MG/0.4 ML SYRINGE. SQ SCH (16:57)
[2019-03-21 19:10] VITALS: BP 131/79
[2019-03-21] MEDS: rOPINIRole 0.25 MG TABLET. PO SCH (21:36)
[2019-03-21] MEDS: TEMAZEPAM 15 MG CAPSULE PO SCH (21:36)
[2019-03-21] MEDS: ATORVASTATIN CALCIUM 40 MG TABLET. PO SCH (21:37)
[2019-03-21] MEDS: traZODone 50 MG TABLET. PO SCH (21:37)
--- NOTE | 2019-03-21 22:04 | NUR ---
snack for bs of 169. pt says he takes amaryl in am and at bedtime. rivasn
[2019-03-21 23:00] VITALS: BP 126/81
[2019-03-22] MEDS: PIPERACILLIN/TAZOBACTAM 3.375 GM in IV NORMAL SALINE 50ML 50 ML IV SCH ×2 (00:39→06:29)
[2019-03-22 03:10] VITALS: BP 138/84
[2019-03-22 07:00] VITALS: BP 161/99
--- NOTE | 2019-03-22 08:26 | PDOC ---
Infectious Disease Note Subjective Subjective Doing ok No fevers or chills Some anxiety and occ cough ROS ROS o/w neg Vital Sign Vital Signs Vital Signs Date Time Temp Pulse Resp B/P (MAP) Pulse Ox O2 Delivery O2 Flow Rate FiO2 03/22/19 07:00 98.1 102 16 161/99 (119) 95 Room Air 98.1 03/21/19 20:00 2.0 Physical Exam PHYSICAL EXAM GENERAL: Propped up in bed, alert, calm - comfortable HENT: Pupils equal, oral cavity pink, moist NECK: Supple LUNGS: CTAB, nonlabored HEART: S1, S2. No gallops or murmurs. ABDOMEN: Obese, soft, nontender EXTREMITIES: No edema, no cyanosis. NEUROLOGIC: Alert and oriented x 3, grossly nonfocal. SKIN: Warm, dry, no generalized rash. Multiple tattoos. PIV Labs Lab Laboratory Tests Test 03/21/19 11:03 03/21/19 16:50 03/21/19 20:43 03/22/19 07:05 Glucose (Fingerstick) 187 mg/dL (70-99) 143 mg/dL (70-99) 169 mg/dL (70-99) 133 mg/dL (70-99) Micro Microbiology 03/17/19 Blood Culture - Preliminary, Resulted NO GROWTH AFTER 3 DAYS Objective Assessment Pulmonary infiltrates - improving with febrile illness and leukocytosis Leukocytosis - better Acute kidney injury on chronic kidney disease, hyperkalemia. Diabetes mellitus 2. Acute- on-chronic diastolic/systolic congestive heart failure with ejection fraction of 15%. Chronic pain. Elevated D Dimer with Abnormal V/Q scan. History of noncompliance. Plan Plan of Care Discont Zyvox, Zosyn Add Augmentin and cont doxycycline (03/18) for atypical coverage. BC neg so far Supportive care f/u cxr ANTONIO LINDO MD Mar 22, 2019 08:26
[2019-03-22 08:39] LABS: BASO % 0 % (0-3); EOS # 0.2 x10^3/uL (0.0-0.7); EOS % 2 % (0-3); HEMATOCRIT 37.6 % (39.0-53.0); HEMOGLOBIN 12.5 g/dL (13.0-17.5); LYMPH # 0.8 x10^3/uL (1.0-4.8); LYMPH % 7 % (24-48); MEAN CORPUSCULAR HEMOGLOBIN 29 pg (25-35); MEAN CORPUSCULAR HGB CONC 33 g/dL (31-37); MEAN CORPUSCULAR VOLUME 87 fL (79-100); MONO # 0.9 x10^3/uL (0.0-1.1); MONO % 9 % (0-9); NEUT # 8.8 x10^3/uL (1.8-7.7); NEUT % 82 % (31-73); PLATELET COUNT 227 x10^3/uL (140-400); RED BLOOD COUNT 4.35 x10^6/uL (4.30-5.70); RED CELL DISTRIBUTION WIDTH 15.2 % (11.5-14.5); WHITE BLOOD COUNT 10.7 x10^3/uL (4.0-11.0)
[2019-03-22] MEDS: HYDROcodone/APAP 10/325 1 TAB TABLET PO PRN (08:46)
[2019-03-22] MEDS: ASPIRIN ENTERIC COATED 81 MG TABLET.DR. PO SCH (08:46)
[2019-03-22] MEDS: LACTOBACILLUS RHAMNOSUS GG 1 CAPSULE. PO SCH (08:46)
[2019-03-22] MEDS: FUROSEMIDE 40 MG TABLET. PO SCH (08:46)
[2019-03-22 08:47] LABS: CALCIUM 8.6 mg/dL (8.5-10.1); CREATININE 3.5 mg/dL (0.7-1.3); GFR 18.5; POTASSIUM 4.7 mmol/L (3.5-5.1)
[2019-03-22] MEDS: GABAPENTIN 300 MG CAPSULE. PO SCH (08:47)
[2019-03-22] MEDS: DOXYCYCLINE HYCLATE 100 MG TABLET PO SCH (08:47)
[2019-03-22] MEDS: PANTOPRAZOLE 40 MG TABLET.DR. PO SCH (08:47)
[2019-03-22] MEDS: CLOPIDOGREL BISULFATE 75 MG TABLET PO SCH (08:47)
[2019-03-22] MEDS: LINEZOLID 600 MG TABLET PO SCH (08:47)
[2019-03-22] MEDS: LINAGLIPTIN 5 MG TABLET PO SCH (08:47)
[2019-03-22] MEDS: GLIMEPIRIDE 2 MG TABLET. PO SCH (08:47)
[2019-03-22] MEDS: amLODIPine BESYLATE 10 MG TABLET PO SCH (08:48)
[2019-03-22] MEDS: LABETALOL HCL 100 MG TABLET. PO SCH (08:48)
[2019-03-22] MEDS: SACUBITRIL/VALSARTAN 49/51MG TABLET. PO SCH (08:55)
[2019-03-22] MEDS ORDERED: AMOXICILLIN/K CLAV 500/125MG TABLET. PO SCH (09:00)
--- NOTE | 2019-03-22 09:21 | PDOC ---
PULMONARY PROGRESS NOTES Subjective sob better, has occ cough, tired Vitals Vital Signs Date Time Temp Pulse Resp B/P (MAP) Pulse Ox O2 Delivery O2 Flow Rate FiO2 03/22/19 08:55 102 161/99 03/22/19 08:46 95 Room Air 2.0 03/22/19 07:00 98.1 16 98.1 ROS: No Nausea, No Chest Pain, No Abdominal Pain, No Increase Cough General: Alert Lungs: Clear Cardiovascular: S1, S2 Abdomen: Soft, Non-tender Neuro Exam: Alert Extremities: No Edema Skin: Warm Labs Laboratory Tests Test 03/20/19 11:58 03/20/19 17:19 03/20/19 20:44 03/21/19 06:05 Glucose (Fingerstick) 104 mg/dL (70-99) 58 mg/dL (70-99) 99 mg/dL (70-99) White Blood Count 12.5 x10^3/uL (4.0-11.0) Red Blood Count 4.66 x10^6/uL (4.30-5.70) Hemoglobin 13.4 g/dL (13.0-17.5) Hematocrit 40.2 % (39.0-53.0) Mean Corpuscular Volume 86 fL (79-100) Mean Corpuscular Hemoglobin 29 pg (25-35) Mean Corpuscular Hemoglobin Concent 33 g/dL (31-37) Red Cell Distribution Width 15.2 % (11.5-14.5) Platelet Count 233 x10^3/uL (140-400) Neutrophils (%) (Auto) 83 % (31-73) Lymphocytes (%) (Auto) 8 % (24-48) Monocytes (%) (Auto) 8 % (0-9) Eosinophils (%) (Auto) 1 % (0-3) Basophils (%) (Auto) 0 % (0-3) Neutrophils # (Auto) 10.4 x10^3/uL (1.8-7.7) Lymphocytes # (Auto) 1.0 x10^3/uL (1.0-4.8) Monocytes # (Auto) 0.9 x10^3/uL (0.0-1.1) Eosinophils # (Auto) 0.1 x10^3/uL (0.0-0.7) Basophils # (Auto) 0.0 x10^3/uL (0.0-0.2) Sodium Level 134 mmol/L (136-145) Potassium Level 5.6 mmol/L (3.5-5.1) Chloride Level 98 mmol/L (98-107) Carbon Dioxide Level 24 mmol/L (21-32) Anion Gap 12 (6-14) Blood Urea Nitrogen 57 mg/dL (8-26) Creatinine 3.0 mg/dL (0.7-1.3) Estimated GFR (Cockcroft-Gault) 22.1 BUN/Creatinine Ratio 19 (6-20) Glucose Level 119 mg/dL (70-99) Calcium Level 9.2 mg/dL (8.5-10.1) Total Bilirubin 0.6 mg/dL (0.2-1.0) Aspartate Amino Transf (AST/SGOT) 13 U/L (15-37) Alanine Aminotransferase (ALT/SGPT) 10 U/L (16-63) Alkaline Phosphatase 82 U/L (46-116) Total Protein 8.0 g/dL (6.4-8.2) Albumin 2.7 g/dL (3.4-5.0) Albumin/Globulin Ratio 0.5 (1.0-1.7) Test 03/21/19 07:37 03/21/19 11:03 03/21/19 16:50 03/21/19 20:43 Glucose (Fingerstick) 164 mg/dL (70-99) 187 mg/dL (70-99) 143 mg/dL (70-99) 169 mg/dL (70-99) Test 03/22/19 07:05 03/22/19 08:15 Glucose (Fingerstick) 133 mg/dL (70-99) White Blood Count 10.7 x10^3/uL (4.0-11.0) Red Blood Count 4.35 x10^6/uL (4.30-5.70) Hemoglobin 12.5 g/dL (13.0-17.5) Hematocrit 37.6 % (39.0-53.0) Mean Corpuscular Volume 87 fL (79-100) Mean Corpuscular Hemoglobin 29 pg (25-35) Mean Corpuscular Hemoglobin Concent 33 g/dL (31-37) Red Cell Distribution Width 15.2 % (11.5-14.5) Platelet Count 227 x10^3/uL (140-400) Neutrophils (%) (Auto) 82 % (31-73) Lymphocytes (%) (Auto) 7 % (24-48) Monocytes (%) (Auto) 9 % (0-9) Eosinophils (%) (Auto) 2 % (0-3) Basophils (%) (Auto) 0 % (0-3) Neutrophils # (Auto) 8.8 x10^3/uL (1.8-7.7) Lymphocytes # (Auto) 0.8 x10^3/uL (1.0-4.8) Monocytes # (Auto) 0.9 x10^3/uL (0.0-1.1) Eosinophils # (Auto) 0.2 x10^3/uL (0.0-0.7) Basophils # (Auto) 0.0 x10^3/uL (0.0-0.2) Sodium Level 136 mmol/L (136-145) Potassium Level 4.7 mmol/L (3.5-5.1) Chloride Level 99 mmol/L (98-107) Carbon Dioxide Level 26 mmol/L (21-32) Anion Gap 11 (6-14) Blood Urea Nitrogen 68 mg/dL (8-26) Creatinine 3.5 mg/dL (0.7-1.3) Estimated GFR (Cockcroft-Gault) 18.5 Glucose Level 186 mg/dL (70-99) Calcium Level 8.6 mg/dL (8.5-10.1) Laboratory Tests Test 03/21/19 11:03 03/21/19 16:50 03/21/19 20:43 03/22/19 07:05 Glucose (Fingerstick) 187 mg/dL (70-99) 143 mg/dL (70-99) 169 mg/dL (70-99) 133 mg/dL (70-99) Test 03/22/19 08:15 White Blood Count 10.7 x10^3/uL (4.0-11.0) Red Blood Count 4.35 x10^6/uL (4.30-5.70) Hemoglobin 12.5 g/dL (13.0-17.5) Hematocrit 37.6 % (39.0-53.0) Mean Corpuscular Volume 87 fL (79-100) Mean Corpuscular Hemoglobin 29 pg (25-35) Mean Corpuscular Hemoglobin Concent 33 g/dL (31-37) Red Cell Distribution Width 15.2 % (11.5-14.5) Platelet Count 227 x10^3/uL (140-400) Neutrophils (%) (Auto) 82 % (31-73) Lymphocytes (%) (Auto) 7 % (24-48) Monocytes (%) (Auto) 9 % (0-9) Eosinophils (%) (Auto) 2 % (0-3) Basophils (%) (Auto) 0 % (0-3) Neutrophils # (Auto) 8.8 x10^3/uL (1.8-7.7) Lymphocytes # (Auto) 0.8 x10^3/uL (1.0-4.8) Monocytes # (Auto) 0.9 x10^3/uL (0.0-1.1) Eosinophils # (Auto) 0.2 x10^3/uL (0.0-0.7) Basophils # (Auto) 0.0 x10^3/uL (0.0-0.2) Sodium Level 136 mmol/L (136-145) Potassium Level 4.7 mmol/L (3.5-5.1) Chloride Level 99 mmol/L (98-107) Carbon Dioxide Level 26 mmol/L (21-32) Anion Gap 11 (6-14) Blood Urea Nitrogen 68 mg/dL (8-26) Creatinine 3.5 mg/dL (0.7-1.3) Estimated GFR (Cockcroft-Gault) 18.5 Glucose Level 186 mg/dL (70-99) Calcium Level 8.6 mg/dL (8.5-10.1) Medications Active Scripts Medications Dose Route/Sig Max Daily Dose Days Date Category Labetalol Hcl 100 Mg Tablet 1 Tab PO BID 03/17/19 Reported Protonix (Pantoprazole Sodium) 20 Mg Tablet.dr 2 Tab PO BID 02/11/19 Reported Entresto 97 mg-103 mg Tablet (Sacubitril/Valsartan) 1 Each Tablet 1 Each PO BID 02/11/19 Reported Gabapentin 300 Mg Capsule 300 Mg PO BID 02/11/19 Reported Temazepam 30 Mg Capsule 1 Cap PO QHS 02/11/19 Reported Potassium Chloride 20 Meq Tablet.er 20 Meq PO DAILY 02/11/19 Reported Spironolactone 25 Mg Tablet 1 Tab PO DAILY 02/11/19 Reported Cyclobenzaprine Hcl 10 Mg Tablet 1 Tab PO TID PRN 02/11/19 Reported Trazodone Hcl 50 Mg Tablet 1 Tab PO QHS 03/19/18 Rx Furosemide 40 Mg Tablet 40 Mg PO [id number] 03/19/18 Rx Aspirin Ec (Aspirin) 81 Mg Tablet.dr 81 Mg PO DAILYWBKFT 60 03/19/18 Rx Atorvastatin Calcium 40 Mg Tablet 40 Mg PO QHS 30 03/19/18 Rx Glimepiride 4 Mg Tablet 1 Tab PO BID 03/19/18 Rx Plavix (Clopidogrel Bisulfate) 75 Mg Tablet 75 Mg PO DAILYWBKFT 03/04/15 Rx [Aspirin] 325 MG Tablet 325 Mg PO DAILYWBKFT 03/04/15 Rx Januvia (Sitagliptin Phosphate) 100 Mg Tablet 1 Tab PO DAILY 11/18/14 Rx Ropinirole Hcl 2 Mg Tablet 0.5 Mg PO QHS 07/22/14 Reported Hydrocodone-Apap 10-300 (Hydrocodone Bit/Acetaminophen) 1 Each Tablet 1 Tab PO Q6HRS PRN 07/22/14 Reported Amitriptyline Hcl 100 Mg Tablet 1 Tab PO QHS 07/22/14 Reported Impression . IMPRESSION: 1. Abnormal x-ray compatible with pneumonia, suspect gram-negative, possibly gram-positive. 2. Possible aspiration pneumonia. 3. Acute hypoxemic respiratory failure. 4. Elevated D-dimer, nonspecific, suspect secondary to infection. 5. Acute on chronic kidney disease. 6. Type 2 diabetes. 7. Acute on chronic diastolic and systolic congestive heart failure, the patient with ejection fraction of 15%. 8. Abnormal V/Q scan compatible with the patient's pneumonia. clinical suspicion for pe is low. No need for anticoagulation. Plan . ANTIBX PER ID, Zyvox, Zosyn and doxycycline increase activity protonix, lovenox for prophylaxis ok to dc from pulm standpoint w po abx per id needs fu cxr in 4-6 wks. discussed w pt LUCIO HUMPHRIES MD Mar 22, 2019 09:21
--- NOTE | 2019-03-22 10:32 | PDOC ---
PROGRESS NOTES Chief Complaint Chief Complaint ASSESSMENT/Plan Pneumonia, POSSIBLE ASPIRATION - high risk likely gram negative given his diabetic status New extensive left lung infiltrate with a smaller area of right medial basilar infiltrate. acute respiratory failure, hyperkalemia, elevated troponin, DEMAND ISCHEMIA LEATHA on chronic renal insufficiency - likely vasomotor nephropathy sepsis elevated lactic acid NO PE obesity Hx of cocaine abuse: recently noted on 03/01 [facility] Acute- on-chronic diastolic/systolic congestive heart failure with ejection fraction of 15%. EF had been 25% or less since 2014. Chronic pain. RECENT ECHO The left ventricular systolic function is moderately impaired. The Ejection Fraction is 30-35%. Transmitral Doppler flow pattern is Grade I-abnormal relaxation pattern. 26 Min pt exam, chart review, > 50% of time spent with exam, chart review, pt care coordination History of Present Illness History of Present Illness Mr Dejesus is a 53yo M w/ PMHx Dm2, Hypertension, CVA, CHF EF 15%, chronic low back pain, herniated disk, cyclic syndrome, back fracture, tonsillectomy, left ankle surgery, wrist surgery, cardiac stent, chronic renal insufficiency who was admitted 03/17/2019 with complaints of fever, shortness of breath, chest pain, cough with sputum production. The patient had epigastric pain after he felt like some food was stuck in the chest. He started having worsening shortness of breath and cough. He was admitted at [facility] for syncopal episode a week ago. Has residual CVA with left-sided facial droop and some upper extremity weakness. The patient started having more tremors since the onset of this illness. He denies any sick contacts. He received dose of vancomycin, levofloxacin and cefepime on admit. The chest x-ray showed bilateral pulmonary infiltrate. White count was high at 16,000 with lactic acidosis. High ProBNP, high troponin. Potassium of 6.4, creatinine of 3.0. He underwent a pulmonary perfusion imaging, which showed a large triple-match within the left lung, healed intermediate probability of pulmonary embolism, although pneumonia and autoregulation could explain these findings. Chest x-ray showed large new extensive lung infiltrate with small area of right medial basilar infiltrate. Consulted Infectious Disease, Pulmonary, nephrology, CARDIOLOGY The patient says his fever pattern has improved. He remains on room air. Denies any nausea, vomiting, diarrhea, abdominal pain, symptoms. Denies any sick contact. Denies being on any antibiotics prior to admission. Denies any headache. Does have some scratchiness in the throat. Denies any oral sores. Denies any further episodes of difficulty swallowing. Has been transitioned to PO antibiotics today Vitals Vitals Vital Signs Date Time Temp Pulse Resp B/P (MAP) Pulse Ox O2 Delivery O2 Flow Rate FiO2 03/22/19 09:47 95 Room Air 2.0 03/22/19 08:55 102 161/99 03/22/19 07:00 98.1 16 98.1 Physical Exam Physical Exam GENERAL: Propped up in bed, alert, calm - comfortable HENT: Pupils equal, oral cavity pink, moist NECK: Supple LUNGS: CTAB, nonlabored HEART: S1, S2. No gallops or murmurs. ABDOMEN: Obese, soft, nontender EXTREMITIES: No edema, no cyanosis. NEUROLOGIC: Alert and oriented x 3, grossly nonfocal. SKIN: Warm, dry, no generalized rash. Multiple tattoos. PIV General: Alert, Oriented X3, Cooperative, No acute distress Heart: Regular rate, Normal S1, Normal S2, No murmurs, Gallops Lungs: Clear Abdomen: Normal bowel sounds, Soft, No tenderness, No hepatosplenomegaly, No masses Extremities: No clubbing, No cyanosis, No edema, Normal pulses, No tenderness/swelling Skin: No breakdown, No significant lesion Labs LABS Laboratory Tests Test 03/21/19 11:03 03/21/19 16:50 03/21/19 20:43 03/22/19 07:05 Glucose (Fingerstick) 187 mg/dL (70-99) 143 mg/dL (70-99) 169 mg/dL (70-99) 133 mg/dL (70-99) Test 03/22/19 08:15 White Blood Count 10.7 x10^3/uL (4.0-11.0) Red Blood Count 4.35 x10^6/uL (4.30-5.70) Hemoglobin 12.5 g/dL (13.0-17.5) Hematocrit 37.6 % (39.0-53.0) Mean Corpuscular Volume 87 fL (79-100) Mean Corpuscular Hemoglobin 29 pg (25-35) Mean Corpuscular Hemoglobin Concent 33 g/dL (31-37) Red Cell Distribution Width 15.2 % (11.5-14.5) Platelet Count 227 x10^3/uL (140-400) Neutrophils (%) (Auto) 82 % (31-73) Lymphocytes (%) (Auto) 7 % (24-48) Monocytes (%) (Auto) 9 % (0-9) Eosinophils (%) (Auto) 2 % (0-3) Basophils (%) (Auto) 0 % (0-3) Neutrophils # (Auto) 8.8 x10^3/uL (1.8-7.7) Lymphocytes # (Auto) 0.8 x10^3/uL (1.0-4.8) Monocytes # (Auto) 0.9 x10^3/uL (0.0-1.1) Eosinophils # (Auto) 0.2 x10^3/uL (0.0-0.7) Basophils # (Auto) 0.0 x10^3/uL (0.0-0.2) Sodium Level 136 mmol/L (136-145) Potassium Level 4.7 mmol/L (3.5-5.1) Chloride Level 99 mmol/L (98-107) Carbon Dioxide Level 26 mmol/L (21-32) Anion Gap 11 (6-14) Blood Urea Nitrogen 68 mg/dL (8-26) Creatinine 3.5 mg/dL (0.7-1.3) Estimated GFR (Cockcroft-Gault) 18.5 Glucose Level 186 mg/dL (70-99) Calcium Level 8.6 mg/dL (8.5-10.1) Assessment and Plan Assessmemt and Plan Problems Medical Problems: (1) D-dimer, elevated Status: Acute (2) Elevated troponin Status: Acute (3) Hyperkalemia Status: Acute (4) Pneumonia Status: Acute (5) Sepsis Status: Acute Comment Review of Relevant I have reviewed the following items gavin (where applicable) has been applied. Labs Laboratory Tests Test 03/20/19 11:58 03/20/19 17:19 03/20/19 20:44 03/21/19 06:05 Glucose (Fingerstick) 104 mg/dL (70-99) 58 mg/dL (70-99) 99 mg/dL (70-99) White Blood Count 12.5 x10^3/uL (4.0-11.0) Red Blood Count 4.66 x10^6/uL (4.30-5.70) Hemoglobin 13.4 g/dL (13.0-17.5) Hematocrit 40.2 % (39.0-53.0) Mean Corpuscular Volume 86 fL (79-100) Mean Corpuscular Hemoglobin 29 pg (25-35) Mean Corpuscular Hemoglobin Concent 33 g/dL (31-37) Red Cell Distribution Width 15.2 % (11.5-14.5) Platelet Count 233 x10^3/uL (140-400) Neutrophils (%) (Auto) 83 % (31-73) Lymphocytes (%) (Auto) 8 % (24-48) Monocytes (%) (Auto) 8 % (0-9) Eosinophils (%) (Auto) 1 % (0-3) Basophils (%) (Auto) 0 % (0-3) Neutrophils # (Auto) 10.4 x10^3/uL (1.8-7.7) Lymphocytes # (Auto) 1.0 x10^3/uL (1.0-4.8) Monocytes # (Auto) 0.9 x10^3/uL (0.0-1.1) Eosinophils # (Auto) 0.1 x10^3/uL (0.0-0.7) Basophils # (Auto) 0.0 x10^3/uL (0.0-0.2) Sodium Level 134 mmol/L (136-145) Potassium Level 5.6 mmol/L (3.5-5.1) Chloride Level 98 mmol/L (98-107) Carbon Dioxide Level 24 mmol/L (21-32) Anion Gap 12 (6-14) Blood Urea Nitrogen 57 mg/dL (8-26) Creatinine 3.0 mg/dL (0.7-1.3) Estimated GFR (Cockcroft-Gault) 22.1 BUN/Creatinine Ratio 19 (6-20) Glucose Level 119 mg/dL (70-99) Calcium Level 9.2 mg/dL (8.5-10.1) Total Bilirubin 0.6 mg/dL (0.2-1.0) Aspartate Amino Transf (AST/SGOT) 13 U/L (15-37) Alanine Aminotransferase (ALT/SGPT) 10 U/L (16-63) Alkaline Phosphatase 82 U/L (46-116) Total Protein 8.0 g/dL (6.4-8.2) Albumin 2.7 g/dL (3.4-5.0) Albumin/Globulin Ratio 0.5 (1.0-1.7) Test 03/21/19 07:37 03/21/19 11:03 03/21/19 16:50 03/21/19 20:43 Glucose (Fingerstick) 164 mg/dL (70-99) 187 mg/dL (70-99) 143 mg/dL (70-99) 169 mg/dL (70-99) Test 03/22/19 07:05 03/22/19 08:15 Glucose (Fingerstick) 133 mg/dL (70-99) White Blood Count 10.7 x10^3/uL (4.0-11.0) Red Blood Count 4.35 x10^6/uL (4.30-5.70) Hemoglobin 12.5 g/dL (13.0-17.5) Hematocrit 37.6 % (39.0-53.0) Mean Corpuscular Volume 87 fL (79-100) Mean Corpuscular Hemoglobin 29 pg (25-35) Mean Corpuscular Hemoglobin Concent 33 g/dL (31-37) Red Cell Distribution Width 15.2 % (11.5-14.5) Platelet Count 227 x10^3/uL (140-400) Neutrophils (%) (Auto) 82 % (31-73) Lymphocytes (%) (Auto) 7 % (24-48) Monocytes (%) (Auto) 9 % (0-9) Eosinophils (%) (Auto) 2 % (0-3) Basophils (%) (Auto) 0 % (0-3) Neutrophils # (Auto) 8.8 x10^3/uL (1.8-7.7) Lymphocytes # (Auto) 0.8 x10^3/uL (1.0-4.8) Monocytes # (Auto) 0.9 x10^3/uL (0.0-1.1) Eosinophils # (Auto) 0.2 x10^3/uL (0.0-0.7) Basophils # (Auto) 0.0 x10^3/uL (0.0-0.2) Sodium Level 136 mmol/L (136-145) Potassium Level 4.7 mmol/L (3.5-5.1) Chloride Level 99 mmol/L (98-107) Carbon Dioxide Level 26 mmol/L (21-32) Anion Gap 11 (6-14) Blood Urea Nitrogen 68 mg/dL (8-26) Creatinine 3.5 mg/dL (0.7-1.3) Estimated GFR (Cockcroft-Gault) 18.5 Glucose Level 186 mg/dL (70-99) Calcium Level 8.6 mg/dL (8.5-10.1) Laboratory Tests Test 03/21/19 11:03 03/21/19 16:50 03/21/19 20:43 03/22/19 07:05 Glucose (Fingerstick) 187 mg/dL (70-99) 143 mg/dL (70-99) 169 mg/dL (70-99) 133 mg/dL (70-99) Test 03/22/19 08:15 White Blood Count 10.7 x10^3/uL (4.0-11.0) Red Blood Count 4.35 x10^6/uL (4.30-5.70) Hemoglobin 12.5 g/dL (13.0-17.5) Hematocrit 37.6 % (39.0-53.0) Mean Corpuscular Volume 87 fL (79-100) Mean Corpuscular Hemoglobin 29 pg (25-35) Mean Corpuscular Hemoglobin Concent 33 g/dL (31-37) Red Cell Distribution Width 15.2 % (11.5-14.5) Platelet Count 227 x10^3/uL (140-400) Neutrophils (%) (Auto) 82 % (31-73) Lymphocytes (%) (Auto) 7 % (24-48) Monocytes (%) (Auto) 9 % (0-9) Eosinophils (%) (Auto) 2 % (0-3) Basophils (%) (Auto) 0 % (0-3) Neutrophils # (Auto) 8.8 x10^3/uL (1.8-7.7) Lymphocytes # (Auto) 0.8 x10^3/uL (1.0-4.8) Monocytes # (Auto) 0.9 x10^3/uL (0.0-1.1) Eosinophils # (Auto) 0.2 x10^3/uL (0.0-0.7) Basophils # (Auto) 0.0 x10^3/uL (0.0-0.2) Sodium Level 136 mmol/L (136-145) Potassium Level 4.7 mmol/L (3.5-5.1) Chloride Level 99 mmol/L (98-107) Carbon Dioxide Level 26 mmol/L (21-32) Anion Gap 11 (6-14) Blood Urea Nitrogen 68 mg/dL (8-26) Creatinine 3.5 mg/dL (0.7-1.3) Estimated GFR (Cockcroft-Gault) 18.5 Glucose Level 186 mg/dL (70-99) Calcium Level 8.6 mg/dL (8.5-10.1) Microbiology 03/17/19 Blood Culture - Preliminary, Resulted NO GROWTH AFTER 4 DAYS Medications Current Medications Aspirin (Children'S Aspirin) 324 mg 1X STAT PO Last administered on 03/17/19at 14:31; Start 03/17/19 at 14:11; Stop 03/17/19 at 14:13; Status DC Levofloxacin/ Dextrose 150 ml @ 100 mls/hr 1X ONCE IV Last administered on 03/17/19at 15:52; Start 03/17/19 at 15:15; Stop 03/17/19 at 16:44; Status DC Cefepime HCl (Maxipime) 2 gm 1X ONCE IVP Last administered on 03/17/19at 15:47; Start 03/17/19 at 15:15; Stop 03/17/19 at 15:16; Status DC Vancomycin HCl 2 gm/Sodium Chloride 500 ml @ 250 mls/hr 1X ONCE IV Last administered on 03/17/19at 18:44; Start 03/17/19 at 16:00; Stop 03/17/19 at 17:59; Status DC Calcium Gluconate (Calcium Gluconate) 1,000 mg 1X STAT IVP ; Start 03/17/19 at 15:27; Stop 03/17/19 at 15:28; Status UNV Calcium Gluconate (Calcium Gluconate) 1,000 mg 1X IVP Last administered on 03/17/19at 15:42; Start 03/17/19 at 15:35; Stop 03/18/19 at 08:42; Status DC Calcium Gluconate (Calcium Gluconate) 1,000 mg 1X IVP ; Start 03/17/19 at 15:40; Status UNV Insulin Human Regular (HumuLIN R VIAL) 10 unit 1X STAT IV Last administered on 03/17/19at 15:53; Start 03/17/19 at 15:27; Stop 03/17/19 at 15:32; Status DC Dextrose (Dextrose 50%-Water Syringe) 25 gm 1X STAT IV Last administered on 03/17/19at 15:50; Start 03/17/19 at 15:27; Stop 03/17/19 at 15:32; Status DC Sodium Polystyrene Sulfonate (Kayexalate) 15 gm 1X STAT PO Last administered on 03/17/19at 15:50; Start 03/17/19 at 15:27; Stop 03/17/19 at 15:32; Status DC Calcium Gluconate (Calcium Gluconate) 1,000 mg 1X ONCE IV Last administered on 03/17/19 16:44; Start 03/17/19 at 16:15; Stop 03/17/19 at 16:16; Status DC Calcium Gluconate (Calcium Gluconate) 1,000 mg 1X ONCE IV Last administered on 03/17/19 16:44; Start 03/17/19 at 16:20; Stop 03/17/19 at 16:21; Status DC Fentanyl Citrate (Fentanyl 2ml Vial) 75 mcg 1X ONCE IV Last administered on 03/17/19 17:05; Start 03/17/19 at 17:00; Stop 03/17/19 at 17:01; Status DC Aspirin (Ecotrin) 81 mg DAILYWBKFT PO Last administered on 03/22/19 08:46; Start 03/17/19 at 19:30 Atorvastatin Calcium (Lipitor) 40 mg QHS PO Last administered on 03/21/19 21:37; Start 03/17/19 at 21:00 Clopidogrel Bisulfate (Plavix) 75 mg DAILYWBKFT PO Last administered on 03/22/19at 08:47; Start 03/17/19 at 19:30 Cyclobenzaprine HCl (Flexeril) 10 mg PRN TID PRN PO MUSCLE SPASMS Last administered on 03/19/19at 12:11; Start 03/17/19 at 18:30 Furosemide (Lasix) 40 mg [id number] PO Last administered on 03/22/19 08:46; Start 03/17/19 at 19:00 Gabapentin (Neurontin) 300 mg BID PO Last administered on 03/22/19 08:47; Start 03/17/19 at 21:00 Labetalol HCl (Trandate) 100 mg BID PO Last administered on 03/21/19 09:03; Start 03/17/19 at 21:00; Stop 03/21/19 at 12:47; Status DC Spironolactone (Aldactone) 25 mg DAILY PO Last administered on 03/21/19 09:02; Start 03/17/19 at 19:30; Stop 03/21/19 at 12:27; Status DC Temazepam (Restoril) 30 mg QHS PO Last administered on 03/21/19 21:36; Start 03/17/19 at 21:00 Trazodone HCl (Desyrel) 50 mg QHS PO Last administered on 03/21/19 21:37; Start 03/17/19 at 21:00 Amitriptyline HCl (Elavil) 100 mg QHS PO ; Start 03/17/19 at 21:00; Status UNV Glimepiride (Amaryl) 4 mg BID PO Last administered on 03/22/19 08:47; Start 03/17/19 at 21:00 Acetaminophen/ Hydrocodone Bitart (Lortab 7.5/325) 1 tab PRN Q6HRS PRN PO PAIN; Start 03/17/19 at 18:45; Stop 03/17/19 at 18:41; Status DC Pantoprazole Sodium (Protonix) 40 mg BIDAC PO Last administered on 03/22/19 08:47; Start 03/17/19 at 19:30 Ropinirole HCl (Requip) 0.5 mg QHS PO Last administered on 03/21/19 21:36; Start 03/17/19 at 21:00 Sacubitril/ Valsartan (Entresto 49 Mg-51 Mg) 2 tab BID PO Last administered on 03/22/19 08:55; Start 03/17/19 at 21:00 Linagliptin (Tradjenta) 5 mg DAILY PO Last administered on 03/22/19 08:47; Start 03/17/19 at 19:30 Non-Formulary Medication ([Aspirin] ) 325 mg DAILYWBKFT PO ; Start 03/18/19 at 08:00; Status UNV Acetaminophen/ Hydrocodone Bitart (Lortab 10325) 1 tab PRN Q6HRS PRN PO PAIN Last administered on 03/22/19at 08:46; Start 03/17/19 at 18:45 Enoxaparin Sodium (Lovenox 100mg Syringe) 90 mg QHS SQ Last administered on 03/17/19at 21:15; Start 03/17/19 at 21:00; Stop 03/18/19 at 11:39; Status DC Info (Anti-Coagulation Monitoring By Pharmacy) 1 each PRN DAILY PRN MC SEE COMMENTS Last administered on 03/18/19at 09:01; Start 03/18/19 at 08:30; Stop 03/19/19 at 13:50; Status DC Piperacillin Sod/ Tazobactam Sod (Zosyn Per Pharmacy) 1 each PRN DAILY PRN MC SEE COMMENTS; Start 03/18/19 at 08:45; Stop 03/22/19 at 08:57; Status DC Doxycycline Hyclate (Vibra-Tab) 100 mg BID PO Last administered on 03/22/19at 08:47; Start 03/18/19 at 09:00 Linezolid (Zyvox) 600 mg BID PO Last administered on 03/22/19at 08:47; Start 03/18/19 at 09:00; Stop 03/22/19 at 08:57; Status DC Piperacillin Sod/ Tazobactam Sod 3.375 gm/Sodium Chloride 50 ml @ 100 mls/hr Q6HRS IV Last administered on 03/22/19at 06:29; Start 03/18/19 at 09:00; Stop 03/22/19 at 08:57; Status DC Lactobacillus Rhamnosus (Culturelle) 1 cap BID PO Last administered on 03/22/19at 08:46; Start 03/18/19 at 21:00 Pantoprazole Sodium (Protonix) 40 mg DAILYAC PO ; Start 03/19/19 at 07:30; Stop 03/20/19 at 05:59; Status DC Pantoprazole Sodium (Protonix) 40 mg 1X ONCE PO ; Start 03/18/19 at 10:30; Stop 03/18/19 at 10:31; Status DC Enoxaparin Sodium (Lovenox 40mg Syringe) 40 mg Q24H SQ Last administered on 03/21/19at 16:57; Start 03/18/19 at 15:00 Furosemide (Lasix) 40 mg STK-MED ONCE .ROUTE ; Start 03/19/19 at 15:45; Stop 03/19/19 at 18:09; Status DC Pantoprazole Sodium (Protonix) 40 mg STK-MED ONCE PO ; Start 03/19/19 at 15:45; Stop 03/19/19 at 18:11; Status DC Piperacillin Sod/ Tazobactam Sod (Zosyn) 3.375 gm STK-MED ONCE IV ; Start 03/19/19 at 15:45; Stop 03/19/19 at 18:11; Status DC Enoxaparin Sodium (Lovenox 40mg Syringe) 40 mg STK-MED ONCE SQ ; Start 03/19/19 at 15:45; Stop 03/19/19 at 18:11; Status DC Amlodipine Besylate (Norvasc) 5 mg DAILY PO Last administered on 03/20/19at 08:41; Start 03/20/19 at 09:00; Stop 03/20/19 at 23:09; Status DC Amlodipine Besylate (Norvasc) 5 mg 1X ONCE PO Last administered on 03/19/19at 23:51; Start 03/19/19 at 23:30; Stop 03/19/19 at 23:31; Status DC Amlodipine Besylate (Norvasc) 10 mg DAILY PO Last administered on 03/22/19at 08:48; Start 03/21/19 at 09:00 Amlodipine Besylate (Norvasc) 5 mg 1X ONCE PO Last administered on 03/20/19at 23:19; Start 03/20/19 at 23:30; Stop 03/20/19 at 23:31; Status DC Sodium Polystyrene Sulfonate (Kayexalate) 15 gm 1X ONCE PO Last administered on 03/21/19at 12:37; Start 03/21/19 at 13:00; Stop 03/21/19 at 13:01; Status DC Labetalol HCl (Trandate) 200 mg BID PO Last administered on 03/22/19at 08:48; Start 03/21/19 at 13:00 Lorazepam (Ativan) 0.5 mg PRN Q8HRS PRN PO ANXIETY / AGITATION; Start 03/21/19 at 16:45; Stop 03/23/19 at 16:44 Amoxicillin/ Clavulanate Potassium (Augmentin 500/ 125mg) 1 tab BID PO Last administered on 03/22/19at 09:46; Start 03/22/19 at 09:00 Active Scripts Active Trazodone Hcl 50 Mg Tablet 1 Tab PO QHS Furosemide 40 Mg Tablet 40 Mg PO [id number] Aspirin Ec (Aspirin) 81 Mg Tablet.dr 81 Mg PO DAILYWBKFT 60 Days Atorvastatin Calcium 40 Mg Tablet 40 Mg PO QHS 30 Days Glimepiride 4 Mg Tablet 1 Tab PO BID Plavix (Clopidogrel Bisulfate) 75 Mg Tablet 75 Mg PO DAILYWBKFT [Aspirin] 325 MG Tablet 325 Mg PO DAILYWBKFT Januvia (Sitagliptin Phosphate) 100 Mg Tablet 1 Tab PO DAILY Reported Labetalol Hcl 100 Mg Tablet 1 Tab PO BID Protonix (Pantoprazole Sodium) 20 Mg Tablet.dr 2 Tab PO BID Entresto 97 mg-103 mg Tablet (Sacubitril/Valsartan) 1 Each Tablet 1 Each PO BID Gabapentin 300 Mg Capsule 300 Mg PO BID Temazepam 30 Mg Capsule 1 Cap PO QHS Potassium Chloride 20 Meq Tablet.er 20 Meq PO DAILY Spironolactone 25 Mg Tablet 1 Tab PO DAILY Cyclobenzaprine Hcl 10 Mg Tablet 1 Tab PO TID PRN Ropinirole Hcl 2 Mg Tablet 0.5 Mg PO QHS Hydrocodone-Apap 10-300 (Hydrocodone Bit/Acetaminophen) 1 Each Tablet 1 Tab PO Q6HRS PRN Amitriptyline Hcl 100 Mg Tablet 1 Tab PO QHS Vitals/I & O Vital Sign - Last 24 Hours 03/21/19 03/21/19 03/21/19 03/21/19 11:00 13:16 13:50 14:54 Temp 98.1 98.1 Pulse 103 103 Resp 18 18 B/P (MAP) 157/87 (110) 157/87 Pulse Ox 94 94 94 O2 Delivery Room Air Room Air Room Air O2 Flow Rate 2.0 2.0 03/21/19 03/21/19 03/21/19 03/21/19 14:58 19:10 20:00 21:38 Temp 97.5 97.7 97.5 97.7 Pulse 103 101 101 Resp 18 20 B/P (MAP) 128/89 (102) 131/79 (96) 131/79 Pulse Ox 97 95 O2 Delivery Room Air Room Air Room Air O2 Flow Rate 2.0 03/21/19 03/21/19 03/22/19 03/22/19 21:38 23:00 03:10 07:00 Temp 97.6 97.8 98.1 97.6 97.8 98.1 Pulse 101 96 97 102 Resp 18 18 16 B/P (MAP) 131/79 126/81 (96) 138/84 (102) 161/99 (119) Pulse Ox 98 96 95 O2 Delivery Room Air Room Air Room Air 03/22/19 03/22/19 03/22/19 03/22/19 08:00 08:46 08:48 08:48 Pulse 102 102 B/P (MAP) 161/99 161/99 Pulse Ox 95 O2 Delivery Room Air Room Air O2 Flow Rate 2.0 03/22/19 03/22/19 08:55 09:47 Pulse 102 B/P (MAP) 161/99 Pulse Ox 95 O2 Delivery Room Air O2 Flow Rate 2.0 Intake and Output 03/21/19 03/21/19 03/22/19 15:00 23:00 07:00 Intake Total 300 ml 300 ml 1800 ml Output Total 300 ml Balance 0 ml 300 ml 1800 ml PUMA ROSS MD Mar 22, 2019 10:32
[2019-03-22 11:03] VITALS: BP 168/99
--- NOTE | 2019-03-22 11:55 | NUR ---
SS following up with discharge planning. HCFS following for self pay status. HCFS notified that pt has diagnosis of CHF and has EF of 30% and LEATHA. Pt is from home and is currently on room air. SS will continue to follow for discharge planning.
[2019-03-22] MEDS ORDERED: DOXY100T PO (12:26)
[2019-03-22] MEDS ORDERED: AMOX1TAB10 PO (12:26)
--- NOTE | 2019-03-22 13:25 | PDOC ---
SUBJECTIVE ROS No complaints OBJECTIVE Vital Signs Vital Signs Date Time Temp Pulse Resp B/P (MAP) Pulse Ox O2 Delivery O2 Flow Rate FiO2 03/22/19 11:03 98.3 94 16 168/99 (122) 97 Room Air 98.3 03/22/19 09:47 2.0 I & 0 Intake and Output 03/22/19 07:00 Intake Total 2400 ml Output Total 300 ml Balance 2100 ml Intake Oral 2400 ml Output Urine Total 300 ml # Voids 5 # Bowel Movements 1 PHYSICAL EXAM Physical Exam GENERAL: NAD HEEN: Om moist , On RA NECK: Supple. HEART: leonidas + CHEST: ABDOMEN: soft, nontender. 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 requiring HD x 2 ?November/Dec Hospitalized at [facility] Jan 2019 with BUN/Cr 130/ 6.5, renal function improved with Cr in 2's,he left AMA Has been advised OP fu with renal Acute respiratory failure with pneumonia/sepsis with associated CM/CHF Pneumonia/Aspiration - On Abx per ID Intermediate possibility of PE reported- defer to Primary HyperKalemia- at presentation, resolved Chronic pain syndrome chronic opioid and benzo use Cardiomyopathy: recent EF 30-35% On PO Lasix and Aldactone, cardiology consulted HTN: stable DM2 : per PCP CAD: PCI/BMS to LAD/RCA, clinically stable. Hx of Noncompliance COMMENT/RELEVANT DATA Meds Current Medications Medications (Trade) Dose Ordered Sig/Jerri Start Time Stop Time Status Last Admin Dose Admin Acetaminophen/ Hydrocodone Bitart (Lortab 10/325) 1 tab PRN Q6HRS PRN 03/17/19 18:45 03/22/19 08:46 1 TAB Acetaminophen/ Hydrocodone Bitart (Lortab 7.5/325) 1 tab PRN Q6HRS PRN 03/17/19 18:45 03/17/19 18:41 DC Amitriptyline HCl (Elavil) 100 mg QHS 03/17/19 21:00 UNV Amlodipine Besylate (Norvasc) 5 mg 1X ONCE 03/20/19 23:30 03/20/19 23:31 DC 03/20/19 23:19 5 MG Amoxicillin/ Clavulanate Potassium (Augmentin 500/ 125mg) 1 tab BID 03/22/19 09:00 03/22/19 09:46 1 TAB Aspirin (Children'S Aspirin) 324 mg 1X STAT 03/17/19 14:11 03/17/19 14:13 DC 03/17/19 14:31 324 MG Aspirin (Ecotrin) 81 mg DAILYWBKFT 03/17/19 19:30 03/22/19 08:46 81 MG Atorvastatin Calcium (Lipitor) 40 mg QHS 03/17/19 21:00 03/21/19 21:37 40 MG Calcium Gluconate (Calcium Gluconate) 1,000 mg 1X ONCE 03/17/19 16:20 03/17/19 16:21 DC 03/17/19 16:44 1,000 MG Cefepime HCl (Maxipime) 2 gm 1X ONCE 03/17/19 15:15 03/17/19 15:16 DC 03/17/19 15:47 2 GM Clopidogrel Bisulfate (Plavix) 75 mg DAILYWBKFT 03/17/19 19:30 03/22/19 08:47 75 MG Cyclobenzaprine HCl (Flexeril) 10 mg PRN TID PRN 03/17/19 18:30 03/19/19 12:11 10 MG Dextrose (Dextrose 50%-Water Syringe) 25 gm 1X STAT 03/17/19 15:27 03/17/19 15:32 DC 03/17/19 15:50 25 GM Doxycycline Hyclate (Vibra-Tab) 100 mg BID 03/18/19 09:00 03/22/19 08:47 100 MG Enoxaparin Sodium (Lovenox 100mg Syringe) 90 mg QHS 03/17/19 21:00 03/18/19 11:39 DC 03/17/19 21:15 90 MG Enoxaparin Sodium (Lovenox 40mg Syringe) 40 mg STK-MED ONCE 03/19/19 15:45 10/25/19 18:11 DC Fentanyl Citrate (Fentanyl 2ml Vial) 75 mcg 1X ONCE 03/17/19 17:00 03/17/19 17:01 DC 03/17/19 17:05 75 MCG Furosemide (Lasix) 40 mg STK-MED ONCE 03/19/19 15:45 03/19/19 18:09 DC Gabapentin (Neurontin) 300 mg BID 03/17/19 21:00 03/22/19 08:47 300 MG Glimepiride (Amaryl) 4 mg BID 03/17/19 21:00 03/22/19 08:47 4 MG Info (Anti-Coagulation Monitoring By Pharmacy) 1 each PRN DAILY PRN 03/18/19 08:30 03/19/19 13:50 DC 03/18/19 09:01 1 EACH Insulin Human Regular (HumuLIN R VIAL) 10 unit 1X STAT 03/17/19 15:27 03/17/19 15:32 DC 03/17/19 15:53 10 UNIT Labetalol HCl (Trandate) 200 mg BID 03/21/19 13:00 03/22/19 08:48 200 MG Lactobacillus Rhamnosus (Culturelle) 1 cap BID 03/18/19 21:00 03/22/19 08:46 1 CAP Levofloxacin/ Dextrose 150 ml @ 100 mls/hr 1X ONCE 03/17/19 15:15 03/17/19 16:44 DC 03/17/19 15:52 100 MLS/HR Linagliptin (Tradjenta) 5 mg DAILY 03/17/19 19:30 03/22/19 08:47 5 MG Linezolid (Zyvox) 600 mg BID 03/18/19 09:00 03/22/19 08:57 DC 03/22/19 08:47 600 MG Lorazepam (Ativan) 0.5 mg PRN Q8HRS PRN 03/21/19 16:45 03/23/19 16:44 Non-Formulary Medication ([Aspirin] ) 325 mg DAILYWBKFT 03/18/19 08:00 UNV Pantoprazole Sodium (Protonix) 40 mg STK-MED ONCE 03/19/19 15:45 03/19/19 18:11 DC Piperacillin Sod/ Tazobactam Sod (Zosyn Per Pharmacy) 1 each PRN DAILY PRN 03/18/19 08:45 03/22/19 08:57 DC Piperacillin Sod/ Tazobactam Sod (Zosyn) 3.375 gm STK-MED ONCE 03/19/19 15:45 03/19/19 18:11 DC Piperacillin Sod/ Tazobactam Sod 3.375 gm/Sodium Chloride 50 ml @ 100 mls/hr Q6HRS 03/18/19 09:00 03/22/19 08:57 DC 03/22/19 06:29 100 MLS/HR Ropinirole HCl (Requip) 0.5 mg QHS 03/17/19 21:00 03/21/19 21:36 0.5 MG Sacubitril/ Valsartan (Entresto 49 Mg-51 Mg) 2 tab BID 03/17/19 21:00 03/22/19 08:55 2 TAB Sodium Polystyrene Sulfonate (Kayexalate) 15 gm 1X ONCE 03/21/19 13:00 03/21/19 13:01 DC 03/21/19 12:37 15 GM Spironolactone (Aldactone) 25 mg DAILY 03/17/19 19:30 03/21/19 12:27 DC 03/21/19 09:02 25 MG Temazepam (Restoril) 30 mg QHS 03/17/19 21:00 03/21/19 21:36 30 MG Trazodone HCl (Desyrel) 50 mg QHS 03/17/19 21:00 03/21/19 21:37 50 MG Vancomycin HCl 2 gm/Sodium Chloride 500 ml @ 250 mls/hr 1X ONCE 03/17/19 16:00 03/17/19 17:59 DC 03/17/19 18:44 250 MLS/HR Lab Laboratory Tests Test 03/21/19 16:50 03/21/19 20:43 03/22/19 07:05 03/22/19 08:15 Glucose (Fingerstick) 143 mg/dL (70-99) 169 mg/dL (70-99) 133 mg/dL (70-99) White Blood Count 10.7 x10^3/uL (4.0-11.0) Red Blood Count 4.35 x10^6/uL (4.30-5.70) Hemoglobin 12.5 g/dL (13.0-17.5) Hematocrit 37.6 % (39.0-53.0) Mean Corpuscular Volume 87 fL (79-100) Mean Corpuscular Hemoglobin 29 pg (25-35) Mean Corpuscular Hemoglobin Concent 33 g/dL (31-37) Red Cell Distribution Width 15.2 % (11.5-14.5) Platelet Count 227 x10^3/uL (140-400) Neutrophils (%) (Auto) 82 % (31-73) Lymphocytes (%) (Auto) 7 % (24-48) Monocytes (%) (Auto) 9 % (0-9) Eosinophils (%) (Auto) 2 % (0-3) Basophils (%) (Auto) 0 % (0-3) Neutrophils # (Auto) 8.8 x10^3/uL (1.8-7.7) Lymphocytes # (Auto) 0.8 x10^3/uL (1.0-4.8) Monocytes # (Auto) 0.9 x10^3/uL (0.0-1.1) Eosinophils # (Auto) 0.2 x10^3/uL (0.0-0.7) Basophils # (Auto) 0.0 x10^3/uL (0.0-0.2) Sodium Level 136 mmol/L (136-145) Potassium Level 4.7 mmol/L (3.5-5.1) Chloride Level 99 mmol/L (98-107) Carbon Dioxide Level 26 mmol/L (21-32) Anion Gap 11 (6-14) Blood Urea Nitrogen 68 mg/dL (8-26) Creatinine 3.5 mg/dL (0.7-1.3) Estimated GFR (Cockcroft-Gault) 18.5 Glucose Level 186 mg/dL (70-99) Calcium Level 8.6 mg/dL (8.5-10.1) Test 03/22/19 11:38 Glucose (Fingerstick) 157 mg/dL (70-99) Results All relevant outside records, renal labs, imaging studies, telemetry/EKG's were reviewed. MARTIN ESTEVEZ MD Mar 22, 2019 13:25
[2019-03-22] MEDS: ENOXAPARIN 40 MG/0.4 ML SYRINGE. SQ SCH (14:55)
--- NOTE | 2019-03-22 15:14 | PDOC3 ---
Discharge Summary Visit Information Date of Admission: Mar 17, 2019 Date of Discharge: Mar 22, 2019 Admitting Diagnosis: Pneumonia with sepsis Final Diagnosis Problems Medical Problems: (1) D-dimer, elevated Status: Acute (2) Elevated troponin Status: Acute (3) Hyperkalemia Status: Acute (4) Pneumonia Status: Acute (5) Sepsis Status: Acute Brief Hospital Course Allergies Allergies Coded Allergies Type Severity Reaction Last Updated Verified No Known Drug Allergies 07/22/14 No Vital Signs Vital Signs Date Time Temp Pulse Resp B/P (MAP) Pulse Ox O2 Delivery O2 Flow Rate FiO2 03/22/19 11:03 98.3 94 16 168/99 (122) 97 Room Air 98.3 03/22/19 09:47 2.0 Lab Results Laboratory Tests Test 03/20/19 17:19 03/20/19 20:44 03/21/19 06:05 03/21/19 07:37 Glucose (Fingerstick) 58 mg/dL (70-99) 99 mg/dL (70-99) 164 mg/dL (70-99) White Blood Count 12.5 x10^3/uL (4.0-11.0) Red Blood Count 4.66 x10^6/uL (4.30-5.70) Hemoglobin 13.4 g/dL (13.0-17.5) Hematocrit 40.2 % (39.0-53.0) Mean Corpuscular Volume 86 fL (79-100) Mean Corpuscular Hemoglobin 29 pg (25-35) Mean Corpuscular Hemoglobin Concent 33 g/dL (31-37) Red Cell Distribution Width 15.2 % (11.5-14.5) Platelet Count 233 x10^3/uL (140-400) Neutrophils (%) (Auto) 83 % (31-73) Lymphocytes (%) (Auto) 8 % (24-48) Monocytes (%) (Auto) 8 % (0-9) Eosinophils (%) (Auto) 1 % (0-3) Basophils (%) (Auto) 0 % (0-3) Neutrophils # (Auto) 10.4 x10^3/uL (1.8-7.7) Lymphocytes # (Auto) 1.0 x10^3/uL (1.0-4.8) Monocytes # (Auto) 0.9 x10^3/uL (0.0-1.1) Eosinophils # (Auto) 0.1 x10^3/uL (0.0-0.7) Basophils # (Auto) 0.0 x10^3/uL (0.0-0.2) Sodium Level 134 mmol/L (136-145) Potassium Level 5.6 mmol/L (3.5-5.1) Chloride Level 98 mmol/L (98-107) Carbon Dioxide Level 24 mmol/L (21-32) Anion Gap 12 (6-14) Blood Urea Nitrogen 57 mg/dL (8-26) Creatinine 3.0 mg/dL (0.7-1.3) Estimated GFR (Cockcroft-Gault) 22.1 BUN/Creatinine Ratio 19 (6-20) Glucose Level 119 mg/dL (70-99) Calcium Level 9.2 mg/dL (8.5-10.1) Total Bilirubin 0.6 mg/dL (0.2-1.0) Aspartate Amino Transf (AST/SGOT) 13 U/L (15-37) Alanine Aminotransferase (ALT/SGPT) 10 U/L (16-63) Alkaline Phosphatase 82 U/L (46-116) Total Protein 8.0 g/dL (6.4-8.2) Albumin 2.7 g/dL (3.4-5.0) Albumin/Globulin Ratio 0.5 (1.0-1.7) Test 03/21/19 11:03 03/21/19 16:50 03/21/19 20:43 03/22/19 07:05 Glucose (Fingerstick) 187 mg/dL (70-99) 143 mg/dL (70-99) 169 mg/dL (70-99) 133 mg/dL (70-99) Test 03/22/19 08:15 03/22/19 11:38 White Blood Count 10.7 x10^3/uL (4.0-11.0) Red Blood Count 4.35 x10^6/uL (4.30-5.70) Hemoglobin 12.5 g/dL (13.0-17.5) Hematocrit 37.6 % (39.0-53.0) Mean Corpuscular Volume 87 fL (79-100) Mean Corpuscular Hemoglobin 29 pg (25-35) Mean Corpuscular Hemoglobin Concent 33 g/dL (31-37) Red Cell Distribution Width 15.2 % (11.5-14.5) Platelet Count 227 x10^3/uL (140-400) Neutrophils (%) (Auto) 82 % (31-73) Lymphocytes (%) (Auto) 7 % (24-48) Monocytes (%) (Auto) 9 % (0-9) Eosinophils (%) (Auto) 2 % (0-3) Basophils (%) (Auto) 0 % (0-3) Neutrophils # (Auto) 8.8 x10^3/uL (1.8-7.7) Lymphocytes # (Auto) 0.8 x10^3/uL (1.0-4.8) Monocytes # (Auto) 0.9 x10^3/uL (0.0-1.1) Eosinophils # (Auto) 0.2 x10^3/uL (0.0-0.7) Basophils # (Auto) 0.0 x10^3/uL (0.0-0.2) Sodium Level 136 mmol/L (136-145) Potassium Level 4.7 mmol/L (3.5-5.1) Chloride Level 99 mmol/L (98-107) Carbon Dioxide Level 26 mmol/L (21-32) Anion Gap 11 (6-14) Blood Urea Nitrogen 68 mg/dL (8-26) Creatinine 3.5 mg/dL (0.7-1.3) Estimated GFR (Cockcroft-Gault) 18.5 Glucose Level 186 mg/dL (70-99) Calcium Level 8.6 mg/dL (8.5-10.1) Glucose (Fingerstick) 157 mg/dL (70-99) Laboratory Tests Test 03/21/19 16:50 03/21/19 20:43 03/22/19 07:05 03/22/19 08:15 Glucose (Fingerstick) 143 mg/dL (70-99) 169 mg/dL (70-99) 133 mg/dL (70-99) White Blood Count 10.7 x10^3/uL (4.0-11.0) Red Blood Count 4.35 x10^6/uL (4.30-5.70) Hemoglobin 12.5 g/dL (13.0-17.5) Hematocrit 37.6 % (39.0-53.0) Mean Corpuscular Volume 87 fL (79-100) Mean Corpuscular Hemoglobin 29 pg (25-35) Mean Corpuscular Hemoglobin Concent 33 g/dL (31-37) Red Cell Distribution Width 15.2 % (11.5-14.5) Platelet Count 227 x10^3/uL (140-400) Neutrophils (%) (Auto) 82 % (31-73) Lymphocytes (%) (Auto) 7 % (24-48) Monocytes (%) (Auto) 9 % (0-9) Eosinophils (%) (Auto) 2 % (0-3) Basophils (%) (Auto) 0 % (0-3) Neutrophils # (Auto) 8.8 x10^3/uL (1.8-7.7) Lymphocytes # (Auto) 0.8 x10^3/uL (1.0-4.8) Monocytes # (Auto) 0.9 x10^3/uL (0.0-1.1) Eosinophils # (Auto) 0.2 x10^3/uL (0.0-0.7) Basophils # (Auto) 0.0 x10^3/uL (0.0-0.2) Sodium Level 136 mmol/L (136-145) Potassium Level 4.7 mmol/L (3.5-5.1) Chloride Level 99 mmol/L (98-107) Carbon Dioxide Level 26 mmol/L (21-32) Anion Gap 11 (6-14) Blood Urea Nitrogen 68 mg/dL (8-26) Creatinine 3.5 mg/dL (0.7-1.3) Estimated GFR (Cockcroft-Gault) 18.5 Glucose Level 186 mg/dL (70-99) Calcium Level 8.6 mg/dL (8.5-10.1) Test 03/22/19 11:38 Glucose (Fingerstick) 157 mg/dL (70-99) Brief Hospital Course Mr Dejesus is a 53yo M w/ PMHx Dm2, Hypertension, CVA, CHF EF 15%, chronic low back pain, herniated disk, cyclic syndrome, back fracture, tonsillectomy, left ankle surgery, wrist surgery, cardiac stent, chronic renal insufficiency who was admitted 03/17/2019 with complaints of fever, shortness of breath, chest pain, cough with sputum production. The patient had epigastric pain after he felt like some food was stuck in the chest. He started having worsening shortness of breath and cough. He was admitted at [facility] for syncopal episode a week ago. Has residual CVA with left-sided facial droop and some upper extremity weakness. The patient started having more tremors since the onset of this illness. He denies any sick contacts. He received dose of vancomycin, levofloxacin and cefepime on admit. The chest x-ray showed bilateral pulmonary infiltrate. White count was high at 16,000 with lactic acidosis. High ProBNP, high troponin. Potassium of 6.4, creatinine of 3.0. He underwent a pulmonary perfusion imaging, which showed a large triple-match within the left lung, healed intermediate probability of pulmonary embolism, although pneumonia and autoregulation could explain these findings. Chest x-ray showed large new extensive lung infiltrate with small area of right medial basilar infiltrate. Consulted Infectious Disease, Pulmonary, nephrology, CARDIOLOGY. Improved on antibiotics and his renal function remained stable, however he is recommended to f/u outpatient with nephrology, will likely need outpatient dialysis in the near future though there was no clear-cut indication for tunneled HD catheter placement this admission. The patient says his fever pattern has improved. He remains on room air. Denies any nausea, vomiting, diarrhea, abdominal pain, symptoms. Denies any sick contact. Denies being on any antibiotics prior to admission. Denies any headache. Does have some scratchiness in the throat. Denies any oral sores. Denies any further episodes of difficulty swallowing. Has been transitioned to PO antibiotics today per ID. He has been recommended he is permanently disabled based on his poor EF, prior CVA. His lack of health insurance is a big limiting factor to being able to improve his health or even maintain it. ASSESSMENT/Plan Pneumonia, POSSIBLE ASPIRATION - high risk likely gram negative given his diabetic status New extensive left lung infiltrate with a smaller area of right medial basilar infiltrate. acute respiratory failure, hyperkalemia, elevated troponin, DEMAND ISCHEMIA LEATHA on chronic renal insufficiency - likely vasomotor nephropathy sepsis elevated lactic acid NO PE obesity Hx of cocaine abuse: recently noted on 03/01 [facility] Acute- on-chronic diastolic/systolic congestive heart failure with ejection fraction of 15%. EF had been 25% or less since 2015. Chronic pain. RECENT ECHO The left ventricular systolic function is moderately impaired. The Ejection Fraction is 30-35%. Transmitral Doppler flow pattern is Grade I-abnormal relaxation pattern. Greater than 30 minutes spent on d/c Discharge Information Condition at Discharge: Improved Follow Up: Weeks (1) Disposition/Orders: D/C to Home Scheduled Amitriptyline Hcl (Amitriptyline Hcl) 100 Mg Tablet, 1 TAB PO QHS, #30 Ref 1 (Reported) Entered as Reported by: JV FRANKS on 07/22/142025 Last Action: Converted on 03/17/191832 by KAMILA HARMAN Amoxicillin/Potassium Clav (Amox Tr-K Clv 500-125 Mg Tab) 1 Each Tablet, 1 TAB PO BID for Pneumonia for 5 Days, #10 Prescribed by: PUMA ROSS MD on 03/22/19 1226 Aspirin (Aspirin Ec) 81 Mg Tablet.dr, 81 MG PO DAILYWBKFT for 60 Days, #60 Prescribed by: VERITO TINAJERO on 03/19/181222 Last Action: Continued on 03/17/191832 by KAMILA HARMAN Atorvastatin Calcium (Atorvastatin Calcium) 40 Mg Tablet, 40 MG PO QHS for 30 Days, #30 Prescribed by: VERITO TINAJERO on 03/19/18 1223 Last Action: Continued on 03/17/191832 by KAMILA HARMAN Clopidogrel Bisulfate (Plavix) 75 Mg Tablet, 75 MG PO DAILYWBKFT, #30 Ref 2 Prescribed by: ROSEANNE RAHMAN on 03/04/15 1505 Last Action: Continued on 03/17/191832 by KAMILA HARMAN Doxycycline Hyclate (Doxycycline Hyclate) 100 Mg Tablet, 100 MG PO BID for Pneumonia for 5 Days, #10 Prescribed by: PUMA ROSS MD on 03/22/19 1226 Furosemide (Furosemide) 40 Mg Tablet, 40 MG PO BID94, #60 Prescribed by: VERITO TINAJERO on 03/19/181222 Last Action: Continued on 03/17/191832 by KAMILA HARMAN Gabapentin (Gabapentin) 300 Mg Capsule, 300 MG PO BID for NEUROGENIC PAIN, (Reported) Entered as Reported by: KAMILA HARMAN on 02/11/191840 Last Action: Continued on 03/17/191832 by KAMILA HARMAN Glimepiride (Glimepiride) 4 Mg Tablet, 1 TAB PO BID, #60 Ref 1 Prescribed by: VERITO TINAJERO on 03/19/18 1223 Last Action: Converted on 03/17/191832 by KAMILA HARMAN Labetalol Hcl (Labetalol Hcl) 100 Mg Tablet, 1 TAB PO BID for HTN, #60 Ref 5 (Reported) Entered as Reported by: KAMILA HARMAN on 03/17/191824 Last Taken: Unknown Dose on Unknown Date & Time Last Action: Continued on 03/17/191832 by KAMILA HARMAN Pantoprazole Sodium (Protonix) 20 Mg Tablet.dr, 2 TAB PO BID for GERD, #30 (Reported) Entered as Reported by: KAMILA HARMAN on 02/11/191840 Last Action: Converted on 03/17/191832 by KAMILA HARMAN Potassium Chloride (Potassium Chloride) 20 Meq Tablet.er, 20 MEQ PO DAILY for replacement, (Reported) Entered as Reported by: DAR KNIGHT on 02/11/191042 Last Action: Reviewed on 03/17/191723 by KAMILA HARMAN Ropinirole Hcl (Ropinirole Hcl) 2 Mg Tablet, 0.5 MG PO QHS for restless leg, (Reported) Entered as Reported by: JV FRANKS on 07/22/142025 Last Action: Converted on 03/17/191832 by KAMILA HARMAN Sacubitril/Valsartan (Entresto 97 mg-103 mg Tablet) 1 Each Tablet, 1 EACH PO BID for CHF, (Reported) Entered as Reported by: KAMILA HARMAN on 02/11/191840 Last Action: Converted on 03/17/191832 by KAMILA HARMAN Sitagliptin Phosphate (Januvia) 100 Mg Tablet, 1 TAB PO DAILY, #30 Ref 5 Prescribed by: ROSEANNE RAHMAN on 11/18/14 1549 Last Action: Converted on 03/17/191832 by KAMILA HARMAN Spironolactone (Spironolactone) 25 Mg Tablet, 1 TAB PO DAILY for diutretic, #90 Ref 1 (Reported) Entered as Reported by: DAR KNIGHT on 02/11/191042 Last Action: Continued on 03/17/191832 by KAMILA HARMAN Temazepam (Temazepam) 30 Mg Capsule, 1 CAP PO QHS for insomnia, #30 Ref 1 (Reported) Entered as Reported by: DAR KNIGHT on 02/11/19 104 Last Action: Continued on 03/17/191832 by KAMILA HARMAN Trazodone Hcl (Trazodone Hcl) 50 Mg Tablet, 1 TAB PO QHS, #14 Ref 1 Prescribed by: VERITO TINAJERO on 03/19/18 1225 Last Action: Continued on 03/17/191832 by KAMILA HARMAN [Aspirin] 325 MG TABLET, 325 MG PO DAILYWBKFT, #30 Ref 2 Prescribed by: ROSEANNE RAHMAN on 03/04/15 1505 Last Action: Converted on 03/17/191832 by KAMILA HARMAN Scheduled PRN Cyclobenzaprine Hcl (Cyclobenzaprine Hcl) 10 Mg Tablet, 1 TAB PO TID PRN for MUSCLE SPASMS, #90 (Reported) Entered as Reported by: DAR KNIGHT on 02/11/191042 Last Action: Continued on 03/17/191832 by KAMILA HARMAN Hydrocodone Bit/Acetaminophen (Hydrocodone-Apap 10-300) 1 Each Tablet, 1 TAB PO Q6HRS PRN for PAIN, Ref 0 (Reported) Entered as Reported by: JV FRANKS on 07/22/142025 Last Action: Converted on 03/17/191832 by KAMILA HARMAN Discontinued Medications Olmesartan/Amlodipin/Hcthiazid (Tribenzor 40-5-12.5 Mg Tablet) 1 Each Tablet, 1 EACH PO TID, (Reported) Entered as Reported by: JV FRANKS on 07/22/142025 Last Action: Discontinued on 03/17/191824 by PUMA WASHINGTON MD Mar 22, 2019 15:14
--- NOTE | 2019-03-22 15:56 | NUR ---
Discharge Note: BERTRAND COLMENARES S2 [facility] Discharge instructions and discharge home medications reviewed with Patient and a copy given. All questions have been answered and understanding verbalized. The following instructions and handouts were given: amoxicillin, doxycyline Patient discharged to home or self care with via ambulated
== END 2019-03-22 15:52 | disposition home or self-care (01) | DRG 871 ==
LOC: ER 13:35 → 2 SOUTH 15:33
PROVIDERS: ADMIT Internal Medicine; ATTEND Internal Medicine
DX: A41.9 Sepsis, unspecified organism (principal); J96.01 Acute respiratory failure with hypoxia; I50.43 Acute on chronic combined systolic (congestive) and diastolic (congestive) heart failure; J69.0 Pneumonitis due to inhalation of food and vomit; N17.0 Acute kidney failure with tubular necrosis; I13.0 Hypertensive heart and chronic kidney disease with heart failure and stage 1 through stage 4 chronic kidney disease, or unspecified chronic kidney disease; I42.8 Other cardiomyopathies; E87.2 Acidosis; I24.8 Other forms of acute ischemic heart disease; N18.4 Chronic kidney disease, stage 4 (severe); M19.90 Unspecified osteoarthritis, unspecified site; F32.9 Major depressive disorder, single episode, unspecified; G25.81 Restless legs syndrome; E66.9 Obesity, unspecified; F41.9 Anxiety disorder, unspecified; I25.10 Atherosclerotic heart disease of native coronary artery without angina pectoris; E78.5 Hyperlipidemia, unspecified; G47.33 Obstructive sleep apnea (adult) (pediatric); K21.9 Gastro-esophageal reflux disease without esophagitis; E11.22 Type 2 diabetes mellitus with diabetic chronic kidney disease; E87.5 Hyperkalemia; G89.4 Chronic pain syndrome; Z79.891 Long term (current) use of opiate analgesic; Z91.19 Patient's noncompliance with other medical treatment and regimen; I69.392 Facial weakness following cerebral infarction; Z95.5 Presence of coronary angioplasty implant and graft; Z87.01 Personal history of pneumonia (recurrent); Z82.49 Family history of ischemic heart disease and other diseases of the circulatory system; Z68.27 Body mass index [BMI] 27.0-27.9, adult
CPT/HCPCS: 36415; 71046; 78582; 80048; 80053; 80307; 82553; 82962; 83605; 83880; 84484; 85007; 85025; 85379; 85610; 85730; 87040; 93005; 96365; 96374; 96375; 96376; A9540; A9558; J0610; J0692; J1650; J1815; J1956; J2543; J3010; J3370; J7040; J7042; 99285-25; G0378

== ENCOUNTER 2019-12-27 18:30 | Inpatient (IN) | payer MEDICAID ==
[~2019-12-27] VITALS: Ht 177.8 cm; Wt 97.2 kg
[~2019-12-27 18:30] MED LIST changes: +AMOX1TAB10 PO; -ASPI-612 PO; +ASPI-886 PO; +DOXY100T PO; -GLIM4TAB4 PO; +GLIM4TAB8 PO; +LABE100T5 PO; +POTA20TA4 PO; -POTA20TA82 PO; +PREG-9 PO; -PREG75CA PO; +ROPI2TAB10 PO; -ROPI2TAB4 PO
[2019-12-27 19:00] VITALS: BP 140/107
[2019-12-27] MEDS ORDERED: ROPI0.5T4 PO (19:54)
[2019-12-27] MEDS ORDERED: HYDR100T24 PO (19:54)
[2019-12-27] MEDS ORDERED: CLON0.1T PO ×2 (19:54)
[2019-12-27] MEDS ORDERED: AMLO10TA8 PO (19:54)
[2019-12-27] MEDS ORDERED: HYDR-2763 PO (19:54)
[2019-12-27] MEDS ORDERED: FURO20TA3 PO (20:08)
[2019-12-27] MEDS ORDERED: CARV25TA PO (20:20)
[2019-12-27] MEDS ORDERED: ACETAMINOPHEN 325 MG TABLET. PO PRN (20:30)
[2019-12-27] MEDS ORDERED: ONDANSETRON PF 4 MG/2 ML VIAL. IVP PRN (20:30)
[2019-12-27] MEDS ORDERED: DEXTROSE 50% 25 GM / 50ML DISP.SYRIN. IV PRN (20:30)
[2019-12-27] MEDS: IV NORMAL SALINE 1000ML BAG 1,000 ML IV SCH (20:56)
[2019-12-27] MEDS: TEMAZEPAM 15 MG CAPSULE PO PRN (20:57)
[2019-12-27] MEDS: HYDROcodone/APAP 7.5/325MG 1 TAB TABLET PO PRN (20:57)
[2019-12-27] MEDS: rOPINIRole 0.25 MG TABLET. PO SCH (20:57)
--- NOTE | 2019-12-27 21:00 | NUR ---
The patient, BERTRAND COLMENARES, 53 y/o, M admitted by SAMM PRASAD MD, was given written information regarding hospital policies, unit procedures and contact persons. Valuables were checked and left in room. Orders received from Dr. Prasad. PVR bladder scan completed. Pt. voided 450 cc and bladder scan revealed 100. Pictures taken of wounds on bilateral feet. No others needs currently. Will monitor.
[2019-12-27] MEDS: CARVEDILOL 12.5 MG TABLET. PO SCH (21:08)
[2019-12-27 23:00] VITALS: BP 169/108
[2019-12-28] VITALS (7 sets, daily range): BP systolic 162–178; BP diastolic 92–110
[2019-12-28] MEDS: HYDROcodone/APAP 7.5/325MG 1 TAB TABLET PO PRN ×5 (01:36→21:18)
[2019-12-28 05:21] LABS: BASO % 1 % (0-3); EOS # 0.2 x10^3/uL (0.0-0.7); EOS % 2 % (0-3); HEMATOCRIT 36.5 % (39.0-53.0); LYMPH % 11 % (24-48); MEAN CORPUSCULAR HEMOGLOBIN 28 pg (25-35); MEAN CORPUSCULAR HGB CONC 33 g/dL (31-37); MEAN CORPUSCULAR VOLUME 86 fL (79-100); MONO # 0.7 x10^3/uL (0.0-1.1); MONO % 8 % (0-9); NEUT # 6.9 x10^3/uL (1.8-7.7); NEUT % 79 % (31-73); PLATELET COUNT 250 x10^3/uL (140-400); RED BLOOD COUNT 4.23 x10^6/uL (4.30-5.70); RED CELL DISTRIBUTION WIDTH 14.8 % (11.5-14.5); WHITE BLOOD COUNT 8.8 x10^3/uL (4.0-11.0)
[2019-12-28 05:43] LABS: ALBUMIN 2.5 g/dL (3.4-5.0); ALBUMIN/GLOBULIN RATIO 0.6 (1.0-1.7); CALCIUM 8.1 mg/dL (8.5-10.1); CREATININE 4.1 mg/dL (0.7-1.3); GFR 15.4; POTASSIUM 3.5 mmol/L (3.5-5.1); TOTAL BILIRUBIN 0.3 mg/dL (0.2-1.0); TOTAL PROTEIN 6.8 g/dL (6.4-8.2)
[2019-12-28] MEDS: IV NORMAL SALINE 1000ML BAG 1,000 ML IV SCH ×2 (06:08→17:00)
[2019-12-28] MEDS: INSULIN LISPRO 300 UNITS/3 ML VIAL. SQ SCH ×3 (07:52→16:54)
[2019-12-28] MEDS: CARVEDILOL 12.5 MG TABLET. PO SCH ×2 (07:52→17:01)
--- NOTE | 2019-12-28 09:55 | NUR ---
SW following. Discussed with RN, pt from home, gets around fine. Dr. Martinez and wound care consulted. SW will continue to follow.
[2019-12-28] MEDS ORDERED: GABA300C18 PO (11:34)
[2019-12-28] MEDS ORDERED: LINA5TAB PO (11:34)
[2019-12-28] MEDS ORDERED: GLIM4TAB PO (11:34)
[2019-12-28] MEDS ORDERED: ASPI81TA59 PO (11:34)
[2019-12-28] MEDS ORDERED: TRAZ-118 PO (11:34)
--- NOTE | 2019-12-28 11:34 | PDOC2 ---
CONSULT Date of Consult Date of Consult DATE: 12/28/19 TIME: 11:22 Reason for Consult Reason for Consult: LEATHA on CKD Referring Physician Referring Physician: Dr. Dougherty Source Source: Chart review, Patient History of Present Illness Reason for Visit: Pt is 53 yo CM with diabetes, hypertension, CVA with left-sided facial droop and some upper extremity weakness, CKD . He was seen yesterday at [facility] ER with chronic infection of his left big toe, infected right big toe,Cellulitis of the medial aspect of left foot and an abscess in the left heel that he drained himself. Currently he denies any nausea, vomiting. States was having diarrhea. No abdominal pain, No dysuria, states UOP may be somewhat less than normal Takes Ibuprofen PRN, besides Opioids . He doesnt know his home med list He was found to have leukocytosis and elevated Cr of 5.2 and he was transferred to [facility] CT scan of the abdomen, was unremarkable no evidence of hydronephrosis. He was started on IVF Past Medical History Cardiovascular: CAD, CHF, HTN, Hyperlipidemia, Other Pulmonary: Other CENTRAL NERVOUS SYSTEM: Other GI: GERD Psych: Depression Musculoskeletal: Osteoarthritis, Other Infectious disease: No pertinent hx Renal/: Chronic renal insuff Endocrine: Diabetes Past Surgical History Past Surgical History: Tonsillectomy, Other Family History Family History: Coronary Artery Disease Social History ALCOHOL: none Drugs: None Lives: with Family Current Medications Current Medications Current Medications Acetaminophen/ Hydrocodone Bitart (Lortab 7.5/325) 1 tab PRN Q6HRS PRN PO M ODERATE PAIN 4-6 Last administered on 12/28/19at 01:36; Start 12/27/19 at 20:30; Stop 12/28/19 at 01:40; Status DC Temazepam (Restoril) 30 mg PRN QHS PRN PO INSOMNIA Last administered on 12/27/19at 20:57; Start 12/27/19 at 20:30 Ropinirole HCl (Requip) 0.5 mg HS PO Last administered on 12/27/19at 20:57; Start 12/27/19 at 21:00 Sodium Chloride 1,000 ml @ 100 mls/hr Q10H IV Last administered on 12/28/19at 06:08; Start 12/27/19 at 20:30 Acetaminophen (Tylenol) 650 mg PRN Q6HRS PRN PO MILD PAIN / TEMP > 100.3'F; Start 12/27/19 at 20:30 Ondansetron HCl (Zofran) 4 mg PRN Q6HRS PRN IVP NAUSEA/VOMITING 1ST CHOICE; Start 12/27/19 at 20:30 Insulin Human Lispro (HumaLOG) 0-5 UNITS TIDWMEALS SQ ; Start 12/28/19 at 08:00 Dextrose (Dextrose 50%-Water Syringe) 12.5 gm PRN Q15MIN PRN IV SEE COMMENTS; Start 12/27/19 at 20:30 Carvedilol (Coreg) 25 mg BIDWMEALS PO Last administered on 12/28/19at 07:52; Start 12/27/19 at 21:00 Acetaminophen/ Hydrocodone Bitart (Lortab 7.5/325) 1 tab PRN Q4HRS PRN PO MODERATE PAIN 4-6 Last administered on 12/28/19at 07:52; Start 12/28/19 at 01:45 Piperacillin Sod/ Tazobactam Sod 2.25 gm/Sodium Chloride 50 ml @ 100 mls/hr Q6HRS IV ; Start 12/28/19 at 12:00 Linezolid/Dextrose 300 ml @ 300 mls/hr Q12HR IV ; Start 12/28/19 at 21:00 Active Scripts Active Furosemide 40 Mg Tablet 40 Mg PO [id number] Atorvastatin Calcium 40 Mg Tablet 40 Mg PO QHS 30 Days Plavix (Clopidogrel Bisulfate) 75 Mg Tablet 75 Mg PO [id number] Reported Coreg (Carvedilol) 25 Mg Tablet 25 Mg PO BIDWMEALS Furosemide 20 Mg Tablet 30 Mg PO BID Amlodipine Besylate 10 Mg Tablet 10 Mg PO DAILY Clonidine Hcl 0.1 Mg Tablet 0.1 Mg PO QIDPRN PRN Clonidine Hcl 0.1 Mg Tablet 0.1 Mg PO DAILY Hydralazine Hcl 100 Mg Tablet 100 Mg PO QID Ropinirole Hcl 0.5 Mg Tablet 0.5 Mg PO HS Labetalol Hcl 100 Mg Tablet 1 Tab PO BID Protonix (Pantoprazole Sodium) 20 Mg Tablet.dr 2 Tab PO BID Entresto 97 mg-103 mg Tablet (Sacubitril/Valsartan) 1 Each Tablet 1 Each PO BID Temazepam 30 Mg Capsule 1 Cap PO QHS Potassium Chloride (Potassium Chloride) 20 Meq Tablet.er 20 Meq PO DAILY Spironolactone 25 Mg Tablet 1 Tab PO DAILY Cyclobenzaprine Hcl 10 Mg Tablet 1 Tab PO TID PRN Hydrocodone-Apap 10-300 (Hydrocodone Bit/Acetaminophen) 1 Each Tablet 1 Tab PO Q6HRS PRN Amitriptyline Hcl 100 Mg Tablet 1 Tab PO QHS Allergies Allergies: Coded Allergies: No Known Drug Allergies (Unverified , 07/22/14) ROS Review of System As per HPI, rest of the ROS is negative Physical Exam Physical Exam GENERAL: NAD HEEN: Om moist , On RA NECK: Supple. HEART:ALEJANDRA + LUNGS Decreased at bases, Non labored ABDOMEN: soft, nontender. NEUROLOGIC: grossly normal EXTREMITIES: No LE edema, he has chronic wounds in the left big toe, status post partial amputation of the left second toe. Wounds in the right big toe with surrounding erythema and erythema on the medial aspect of left foot According to him an abscess in his left heel that he drained himself and large amount of pus came out. - No Eldridge SKIN No rash Vital Signs Vital Signs Date Time Temp Pulse Resp B/P (MAP) Pulse Ox O2 Delivery O2 Flow Rate FiO2 12/28/19 11:08 98.2 86 18 172/100 (124) 98 Room Air 98.2 Assessment & Plan LEATHA -suspect ATN, Cr improved some with IVF peaked at 5.2 at [facility] Unremarkable US and UA in 2019 , CT scan at [facility] on 12/26- Unremarkable Kidneys Currently Pt asymptomatic ,No emergent indication for MOTOR ROUTE CARRIER , Pt has refused to go on Dialysis Supportive care, IVF avoid nephrotoxins, strict I/O CKD stage 3 - Suspect sec to HTN and CHF Cr in 2019 at 2nfd Hospitalization at [facility] was 2.4-3 Hx of LEATHA - at [facility] requiring HD x 2 ?November/Dec Hospitalized at [facility] Jan 2019 with BUN/Cr 130/ 6.5, renal function improved with Cr in 2's He still doesn't see Nephrology as OP despite recommendations Cellulitis both feet with possible underlying osteomyelitis Chronic pain syndrome chronic opioid and benzo use Cardiomyopathy: EF 30-35% in 2019 HTN: BP high suspect due to Chronic Non compliance DM2 : per PCP CAD: PCI/BMS to LAD/RCA, clinically stable. Anemia- Hgb stable, No indication for CELENA Chronic Noncompliance with meds, appointments Labs Labs Laboratory Tests Test 12/27/19 21:28 12/28/19 03:45 12/28/19 07:43 Glucose (Fingerstick) 119 mg/dL (70-99) 123 mg/dL (70-99) White Blood Count 8.8 x10^3/uL (4.0-11.0) Red Blood Count 4.23 x10^6/uL (4.30-5.70) Hemoglobin 12.0 g/dL (13.0-17.5) Hematocrit 36.5 % (39.0-53.0) Mean Corpuscular Volume 86 fL (79-100) Mean Corpuscular Hemoglobin 28 pg (25-35) Mean Corpuscular Hemoglobin Concent 33 g/dL (31-37) Red Cell Distribution Width 14.8 % (11.5-14.5) Platelet Count 250 x10^3/uL (140-400) Neutrophils (%) (Auto) 79 % (31-73) Lymphocytes (%) (Auto) 11 % (24-48) Monocytes (%) (Auto) 8 % (0-9) Eosinophils (%) (Auto) 2 % (0-3) Basophils (%) (Auto) 1 % (0-3) Neutrophils # (Auto) 6.9 x10^3/uL (1.8-7.7) Lymphocytes # (Auto) 1.0 x10^3/uL (1.0-4.8) Monocytes # (Auto) 0.7 x10^3/uL (0.0-1.1) Eosinophils # (Auto) 0.2 x10^3/uL (0.0-0.7) Basophils # (Auto) 0.0 x10^3/uL (0.0-0.2) Sodium Level 140 mmol/L (136-145) Potassium Level 3.5 mmol/L (3.5-5.1) Chloride Level 106 mmol/L (98-107) Carbon Dioxide Level 20 mmol/L (21-32) Anion Gap 14 (6-14) Blood Urea Nitrogen 70 mg/dL (8-26) Creatinine 4.1 mg/dL (0.7-1.3) Estimated GFR (Cockcroft-Gault) 15.4 BUN/Creatinine Ratio 17 (6-20) Glucose Level 107 mg/dL (70-99) Calcium Level 8.1 mg/dL (8.5-10.1) Total Bilirubin 0.3 mg/dL (0.2-1.0) Aspartate Amino Transf (AST/SGOT) 16 U/L (15-37) Alanine Aminotransferase (ALT/SGPT) 18 U/L (16-63) Alkaline Phosphatase 88 U/L (46-116) Total Protein 6.8 g/dL (6.4-8.2) Albumin 2.5 g/dL (3.4-5.0) Albumin/Globulin Ratio 0.6 (1.0-1.7) Laboratory Tests Test 12/27/19 21:28 12/28/19 03:45 12/28/19 07:43 Glucose (Fingerstick) 119 mg/dL (70-99) 123 mg/dL (70-99) White Blood Count 8.8 x10^3/uL (4.0-11.0) Red Blood Count 4.23 x10^6/uL (4.30-5.70) Hemoglobin 12.0 g/dL (13.0-17.5) Hematocrit 36.5 % (39.0-53.0) Mean Corpuscular Volume 86 fL (79-100) Mean Corpuscular Hemoglobin 28 pg (25-35) Mean Corpuscular Hemoglobin Concent 33 g/dL (31-37) Red Cell Distribution Width 14.8 % (11.5-14.5) Platelet Count 250 x10^3/uL (140-400) Neutrophils (%) (Auto) 79 % (31-73) Lymphocytes (%) (Auto) 11 % (24-48) Monocytes (%) (Auto) 8 % (0-9) Eosinophils (%) (Auto) 2 % (0-3) Basophils (%) (Auto) 1 % (0-3) Neutrophils # (Auto) 6.9 x10^3/uL (1.8-7.7) Lymphocytes # (Auto) 1.0 x10^3/uL (1.0-4.8) Monocytes # (Auto) 0.7 x10^3/uL (0.0-1.1) Eosinophils # (Auto) 0.2 x10^3/uL (0.0-0.7) Basophils # (Auto) 0.0 x10^3/uL (0.0-0.2) Sodium Level 140 mmol/L (136-145) Potassium Level 3.5 mmol/L (3.5-5.1) Chloride Level 106 mmol/L (98-107) Carbon Dioxide Level 20 mmol/L (21-32) Anion Gap 14 (6-14) Blood Urea Nitrogen 70 mg/dL (8-26) Creatinine 4.1 mg/dL (0.7-1.3) Estimated GFR (Cockcroft-Gault) 15.4 BUN/Creatinine Ratio 17 (6-20) Glucose Level 107 mg/dL (70-99) Calcium Level 8.1 mg/dL (8.5-10.1) Total Bilirubin 0.3 mg/dL (0.2-1.0) Aspartate Amino Transf (AST/SGOT) 16 U/L (15-37) Alanine Aminotransferase (ALT/SGPT) 18 U/L (16-63) Alkaline Phosphatase 88 U/L (46-116) Total Protein 6.8 g/dL (6.4-8.2) Albumin 2.5 g/dL (3.4-5.0) Albumin/Globulin Ratio 0.6 (1.0-1.7) Review All relevant outside records, renal labs, imaging studies, telemetry/EKG's were reviewed. Images Images x-ray of both feet did not show any evidence of erosion, MARTIN ESTEVEZ MD Dec 28, 2019 11:34
--- NOTE | 2019-12-28 11:35 | PN ---
DATE: 12/28/2019 SUBJECTIVE: The patient was seen yesterday at [facility] Emergency Room with chronic infection of his left big toe and also infected right big toe and also cellulitis of the medial aspect of left foot and also an abscess in the left heel that he drained himself. He was extensively investigated. He was found to have leukocytosis. His kidney function was found to be abnormal. In fact, his creatinine was 5.2. He has had a CT scan of the abdomen, which was unremarkable, in particular, there is no evidence of hydronephrosis, hydroureter and he was started on IV fluid, was given Rocephin and [facility] evaluation and treatment. PHYSICAL EXAMINATION: GENERAL: When I saw him today, he looked well and was clearly in no apparent respiratory distress, somewhat pale, but no jaundice, cyanosis or thyromegaly. No jugular venous distention. No lower limb edema. VITAL SIGNS: His heart rate was 88, blood pressure was 162/104, temperature was 97.8, respiratory rate was 18 and oxygen saturation was 99% on room air. HEAD, EYES, EARS, NOSE, AND THROAT: Showed normocephalic, atraumatic. NECK: Supple. HEART: Normal first and second heart sounds. No gallop, rub or murmur. CHEST: Clear to auscultation. No crepitation or rhonchi. ABDOMEN: Distended, soft, nontender. NEUROLOGIC: He is awake, alert, responding appropriately. All cranial nerves are intact. EXTREMITIES: He moves extremities without difficulty. He ambulates without assistance or assistive devices. Examination of both feet showed that he has chronic wounds in the left big toe. He is status post partial amputation of the left second toe. He has also wounds in the right big toe with surrounding erythema and erythema on the medial aspect of left foot as well as according to him an abscess in his left heel that he drained himself and large amount of pus came out. ASSESSMENT AND PLAN: His x-ray of both feet did not show any evidence of erosion, however, his CRP was high at 47 and therefore, the patient was admitted with acute on chronic kidney injury, cellulitis both feet with possible underlying osteomyelitis. He has multitude of medical problems including coronary artery disease, status post percutaneous coronary intervention with stent deployment to left anterior right coronary artery, chronic systolic congestive heart failure due to ischemic cardiomyopathy with left ventricular ejection fraction of 30-35%, hypertension, hyperlipidemia, type 2 diabetes and substance abuse. I have already consulted the compensation manager. We will continue with IV fluid. I ordered a bone scan and added Zosyn and Zyvox. Once we have the result of the bone scan, we might have to consult the Infectious Disease as well as orthopedic surgeon. SAMM PRASAD MD DR: OH/jose JOB#: [id number] / [id number]
--- NOTE | 2019-12-28 12:05 | HP ---
ADMIT DATE: 12/27/2019 HISTORY OF PRESENT ILLNESS: The patient is a 53-year-old male patient who was seen at [facility] Emergency Room complaining of pain and infection of both big toes. He stated that the pain and wounds of his left big toe have not healed, they have been there for almost 3 months. He hit his right big toe and developed pain and infection there. He also has an infection of the medial aspect of the left foot and left heel, had an abscess that he drained himself and large amount of pus came out. He was evaluated in the Emergency Room, was found to have leukocytosis with a white cell count of 13,600. His chemistry showed that his BUN is 80, creatinine 5.3 and therefore he was transferred to [facility] to continue with IV fluid, IV antibiotic, to consult the roof truss machine tender and perhaps Infectious Disease if need be. PAST MEDICAL HISTORY: Significant for: 1. Coronary artery disease, status post PCI with stent deployment to the left anterior descending and right coronary artery. 2. Ischemic cardiomyopathy with chronic systolic congestive heart failure. His left ventricular ejection fraction was only 30-35% on most recent echocardiogram. 3. He is known to have hypertension, hyperlipidemia, type 2 diabetes, chronic renal insufficiency, depression, gastroesophageal reflux disease, and osteoarthritis. PAST SURGICAL HISTORY: Significant for tonsillectomy and partial amputation of his left second toe. FAMILY HISTORY: Significant for hypertension and coronary artery disease. SOCIAL HISTORY: The patient denied any smoking, drinking alcohol or any drugs; however, his urine was tested positive for cocaine on previous admissions. REVIEW OF SYSTEMS: As per history of present illness. ALLERGIES: He has no known drug allergies. MEDICATIONS: On his last admission, he was on aspirin 81 mg once a day. He is on hydrocodone 5/325 one tablet every 4 hours, famotidine 20 mg once a day, clonidine 0.2 mg TTS patch once a week, ondansetron 4 mg every 4 hours, and labetalol 100 mg twice a day. PHYSICAL EXAMINATION: GENERAL: On arrival to the Emergency Room, he looked pale. No jaundice, cyanosis, or thyromegaly. No jugular venous distension. No limb edema. VITAL SIGNS: His heart rate was 104, blood pressure was 150/94, temperature 97.9, respiratory rate was 18, and oxygen saturation was 97%. HEAD, EYES, EARS, NOSE AND THROAT: Showed normocephalic, atraumatic. NECK: Supple. HEART: Showed normal first and second heart sounds. No gallop, rub, or murmur. CHEST: Clear to auscultation. No crepitation or rhonchi. ABDOMEN: Distended, soft, nontender. NEUROLOGIC: He was awake, alert, responding appropriately. All cranial nerves intact. EXTREMITIES: He moves extremities without difficulty. He ambulates without assistance or assistive devices. His left second toe was partially amputated. He has cellulitis of his left foot, mostly in the medial aspect and left heel. He has also wounds on his right big toe. SKIN: Showed that he has chronic wounds in his left big toe. LABORATORY DATA: Showed a white cell count of 13,600, hemoglobin 12, hematocrit 37, MCV 88, and platelet count 269,000 with normal manual differential. His serum sodium was 134, potassium 3.6, chloride 99, bicarbonate 20, anion gap of 15, BUN 80, creatinine was 5.3, estimated GFR was 11.5 mL per minute, his glucose 122, calcium was 8.6. Lactic acid was 0.5. AST, ALT, and alkaline phosphatase were normal. His C-reactive protein was 53.7. Total protein was 8 and albumin was 3.1. DIAGNOSTIC DATA: He apparently has had x-ray of his both feet that showed that the patient has no fracture or dislocation identified. The bone density is normal. The joint spaces are maintained. There are no erosions to suggest an inflammatory arthropathy. No soft tissue abnormalities seen. Incidentally noted surgical fixation of the medial malleolus fracture and lateral malleolus fracture with screws and lateral plate. Screw construct fixation, hardware respectively. Soft tissue showed arterial vascular calcification, left foot also, notable for amputation of his second toe at the level of the proximal interphalangeal joint. The patient has no radiographic finding suspicious for osteomyelitis in either foot. Given his worsening kidney function and cellulitis of left foot, a decision was made to transfer him to [facility]. I did start him on IV fluid. He has had a CT scan of the abdomen and pelvis, which showed no evidence of any hydronephrosis or hydroureter and urinary bladder wall is smooth ____ DICTATION ENDS HERE. SAMM PRASAD MD DR: Radha JOB#: [id number] / [id number]
[2019-12-28] MEDS: LINAGLIPTIN 5 MG TABLET PO SCH (12:36)
[2019-12-28] MEDS: PIPERACILLIN/TAZOBACTAM 2.25 GM in IV NORMAL SALINE 50ML 50 ML IV SCH ×2 (12:36→18:08)
[2019-12-28] MEDS: CLOPIDOGREL BISULFATE 75 MG TABLET PO SCH (12:36)
[2019-12-28] MEDS: GABAPENTIN 300 MG CAPSULE. PO SCH ×2 (12:36→21:09)
[2019-12-28] MEDS: GLIMEPIRIDE 2 MG TABLET. PO SCH (12:37)
[2019-12-28] MEDS: ASPIRIN CHEWABLE 81 MG TABLET. PO SCH (12:37)
--- NOTE | 2019-12-28 15:47 | NUR ---
Wound/Ostomy Care Wound Type/Assessment: consult for bilateral great toes diabetic wounds and right dorsal foot diabetic wound. Right dorsal foot appears healed after cleansing it, skin prep applied for protection. Quantiflow to bilateral extremities, R with OCTAVIA of 0.90 and L OCTAVIA 1.1, obtained at rest. Left great toe noted with possible bone with probed while taking depth measurement, also noted with fissure between left great toe and plantar foot. Treatment Recommendations/Plan: R great toe, apply therahoney, xeroform and cover with gauze and tape. Left great toe cover with iodoflex and xeroform to fissure site in plantar area, covered with gauze and tape. Bilateral arterial duplex u/s orders. SANJUANA Hillman will follow up with pt tomorrow for further eval. Education provided: pt re: wound care, dressing changes and test ordered Recommended Referrals/Tests: bilateral arterial duplex u/s, bone scan ordered by Dr. Dougherty Discharge Recommendations for dressings: will re-evaluate tomorrow with WC provider.
[2019-12-28] MEDS ORDERED: NON FORMULARY ITEM (Carvedilol (Coreg) 25 MG) PO SCH (17:00)
[2019-12-28] MEDS: PANTOPRAZOLE 40 MG TABLET.DR. PO SCH (17:00)
[2019-12-28] MEDS: hydrALAZINE 20 MG/ML VIAL. IVP PRN (18:09)
[2019-12-28] MEDS ORDERED: NON FORMULARY ITEM (Ropinirole Hcl 0.5 MG) PO SCH (21:00)
[2019-12-28] MEDS ORDERED: TEMAZEPAM 15 MG CAPSULE PO SCH (21:00)
[2019-12-28] MEDS: rOPINIRole 0.25 MG TABLET. PO SCH (21:09)
[2019-12-28] MEDS: traZODone 50 MG TABLET. PO SCH (21:09)
[2019-12-28] MEDS: ATORVASTATIN CALCIUM 40 MG TABLET. PO SCH (21:09)
[2019-12-28] MEDS: LABETALOL HCL 100 MG TABLET. PO SCH (21:09)
[2019-12-28] MEDS: TEMAZEPAM 15 MG CAPSULE PO PRN (21:19)
--- NOTE | 2019-12-28 23:02 | RAD ---
Exam: Ultrasound bilateral arterial lower extremity duplex Indication: Bilateral great toe diabetic wounds, decreased pulses Technique: Real-time grayscale and color Doppler images of the bilateral lower extremities were obtained by the department air tool operator. Comparisons: None FINDINGS: Peak systolic velocities(cm/s) as follows Right TUBE SKIVER: 126 DFA: 84 Proximal SFA: 103 Mid SFA: 124 Distal SFA: 116 Popliteal: 183 EQUIPMENT OPERATOR W[employer]HOUSE proximal: 45 EQUIPMENT OPERATOR [employer]HOUSE mid: 55 EQUIPMENT OPERATOR [employer]HOUSE distal: 56 Peroneal: 107 JIN: 114 DP: 185 Monophasic waveforms are noted from the mid EQUIPMENT OPERATOR W[employer]HOUSE to the distal EQUIPMENT OPERATOR [employer]HOUSE. Triphasic waveforms throughout the remainder of the right lower extremity. Left TUBE SKIVER: 109 DFA: 92 Proximal SFA: 114 Mid SFA: 110 Distal SFA: 119 Posterior: 201 EQUIPMENT OPERATOR W[employer]HOUSE proximal: 38 Distal EQUIPMENT OPERATOR WAREHOUSE: 61 Peroneal: 74 JIN: 57 DP: 138 Triphasic waveforms noted throughout the left lower extremity arterial vasculature. IMPRESSION: 1. Monophasic waveforms seen at from the mid EQUIPMENT OPERATOR W[employer]HOUSE distally. Findings suggests stenosis between the proximal and mid EQUIPMENT OPERATOR W[employer]HOUSE. 2. No evidence for stenosis in the left lower extremity. Electronically signed by: Jeremiah Lopez MD (12/28/2019 10:59 PM) [id number]
[2019-12-29] MEDS: PIPERACILLIN/TAZOBACTAM 2.25 GM in IV NORMAL SALINE 50ML 50 ML IV SCH ×5 (00:28→23:40)
[2019-12-29] MEDS: HYDROcodone/APAP 7.5/325MG 1 TAB TABLET PO PRN ×5 (02:30→21:36)
[2019-12-29] MEDS: hydrALAZINE 20 MG/ML VIAL. IVP PRN ×3 (02:31→23:40)
[2019-12-29 02:51] VITALS: BP 181/106
[2019-12-29] MEDS: IV NORMAL SALINE 1000ML BAG 1,000 ML IV SCH ×3 (04:39→21:34)
[2019-12-29 06:16] LABS: CALCIUM 7.9 mg/dL (8.5-10.1); CREATININE 3.7 mg/dL (0.7-1.3); GFR 17.3
[2019-12-29 06:43] VITALS: BP 174/106
[2019-12-29] MEDS: INSULIN LISPRO 300 UNITS/3 ML VIAL. SQ SCH ×3 (08:00→17:00)
[2019-12-29] MEDS: CARVEDILOL 12.5 MG TABLET. PO SCH ×2 (08:23→17:24)
[2019-12-29] MEDS: PANTOPRAZOLE 40 MG TABLET.DR. PO SCH ×2 (08:23→17:23)
[2019-12-29] MEDS: GABAPENTIN 300 MG CAPSULE. PO SCH ×2 (08:23→21:36)
[2019-12-29] MEDS: LABETALOL HCL 100 MG TABLET. PO SCH ×2 (08:23→21:36)
[2019-12-29] MEDS: ASPIRIN CHEWABLE 81 MG TABLET. PO SCH (08:23)
[2019-12-29] MEDS: CLOPIDOGREL BISULFATE 75 MG TABLET PO SCH (08:24)
[2019-12-29] MEDS: GLIMEPIRIDE 2 MG TABLET. PO SCH (08:24)
[2019-12-29] MEDS: LINAGLIPTIN 5 MG TABLET PO SCH (08:24)
--- NOTE | 2019-12-29 10:03 | NUR ---
SW following. Discussed with RN, pt from home, IV zosyn, zyvox. Wound care following. Pt had some imaging done yesterday. SW will continue to follow.
--- NOTE | 2019-12-29 10:08 | PDOC ---
DATE OF SERVICE DATE: 12/29/19 TIME: 10:05 SUBJECTIVE ROS Pt states he is feeling better, he is walking and hoping he can be dced home today OBJECTIVE Vital Signs Vital Signs Date Time Temp Pulse Resp B/P (MAP) Pulse Ox O2 Delivery O2 Flow Rate FiO2 12/29/19 08:24 100 Room Air 12/29/19 08:23 90 174/106 12/29/19 06:43 97.7 24 97.7 I & 0 Intake and Output 12/29/19 07:00 Intake Total 2350 ml Output Total 300 ml Balance 2050 ml Intake Oral 1000 ml IV Total 1350 ml Output Urine Total 300 ml # Voids 4 # Bowel Movements 2 PHYSICAL EXAM Physical Exam GENERAL: NAD HEEN: Om moist , On RA NECK: Supple. HEART:ALEJANDRA + LUNGS Decreased at bases, Non labored ABDOMEN: soft, nontender. NEUROLOGIC: grossly normal EXTREMITIES: No LE edema, he has chronic wounds in the left big toe, status post partial amputation of the left second toe. Wounds in the right big toe with surrounding erythema and erythema on the medial aspect of left foot According to him an abscess in his left heel that he drained himself and large amount of pus came out. 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 , Pt has refused to go on Dialysis Supportive care, IVF avoid nephrotoxins, strict I/O CKD stage 3 - Suspect sec to HTN and CHF Cr in 2019 at 2nfd Hospitalization at [facility] was 2.4-3 Hx of LEATHA - at [facility] requiring HD x 2 ?November/Dec Hospitalized at [facility] Jan 2019 with BUN/Cr 130/ 6.5, renal function improved with Cr in 2's He still doesn't see Nephrology as OP despite recommendations Cellulitis both feet with possible underlying osteomyelitis Chronic pain syndrome chronic opioid and benzo use Cardiomyopathy: EF 30-35% in 2019 HTN: BP high suspect due to Chronic Non compliance DM2 : per PCP CAD: PCI/BMS to LAD/RCA, clinically stable. Anemia- Hgb stable, No indication for CELENA Chronic Noncompliance with meds, appointments COMMENT/RELEVANT DATA Meds Current Medications Medications (Trade) Dose Ordered Sig/Jerri Start Time Stop Time Status Last Admin Dose Admin Acetaminophen (Tylenol) 650 mg PRN Q6HRS PRN 12/27/19 20:30 Acetaminophen/ Hydrocodone Bitart (Lortab 7.5/325) 1 tab PRN Q4HRS PRN 12/28/19 01:45 12/29/19 06:26 1 TAB Aspirin (Aspirin Chewable) 81 mg DAILY 12/28/19 13:00 12/29/19 08:23 81 MG Atorvastatin Calcium (Lipitor) 40 mg QHS 12/28/19 21:00 12/28/19 21:09 40 MG Carvedilol (Coreg) 25 mg BIDWMEALS 12/27/19 21:00 12/29/19 08:23 25 MG Clopidogrel Bisulfate (Plavix) 75 mg DAILYWBKFT 12/28/19 13:00 12/29/19 08:24 75 MG Dextrose (Dextrose 50%-Water Syringe) 12.5 gm PRN Q15MIN PRN 12/27/19 20:30 Gabapentin (Neurontin) 300 mg BID 12/28/19 13:00 12/29/19 08:23 300 MG Glimepiride (Amaryl) 4 mg DAILY 12/28/19 13:00 12/28/19 12:37 4 MG Hydralazine HCl (Apresoline Inj) 10 mg PRN Q4HRS PRN 12/28/19 17:30 12/29/19 02:31 10 MG Insulin Human Lispro (HumaLOG) 0-5 UNITS TIDWMEALS 12/28/19 08:00 Labetalol HCl (Trandate) 100 mg BID 12/28/19 21:00 12/29/19 08:23 100 MG Linagliptin (Tradjenta) 5 mg DAILY 12/28/19 13:00 12/28/19 12:36 5 MG Linezolid/Dextrose 300 ml @ 300 mls/hr Q12HR 12/28/19 21:00 12/28/19 21:09 300 MLS/HR Non-Formulary Medication (Carvedilol (Coreg)) 25 mg BIDWMEALS 12/28/19 17:00 UNV Non-Formulary Medication (Ropinirole Hcl ) 0.5 mg HS 12/28/19 21:00 UNV Ondansetron HCl (Zofran) 4 mg PRN Q6HRS PRN 12/27/19 20:30 Pantoprazole Sodium (Protonix) 40 mg BIDAC 12/28/19 16:30 12/29/19 08:23 40 MG Piperacillin Sod/ Tazobactam Sod 2.25 gm/Sodium Chloride 50 ml @ 100 mls/hr Q6HRS 12/28/19 12:00 12/29/19 06:26 100 MLS/HR Ropinirole HCl (Requip) 0.5 mg HS 12/27/19 21:00 12/28/19 21:09 0.5 MG Sodium Chloride 1,000 ml @ 100 mls/hr Q10H 12/27/19 20:30 12/29/19 04:39 100 MLS/HR Temazepam (Restoril) 30 mg QHS 12/28/19 21:00 UNV Trazodone HCl (Desyrel) 50 mg QHS 12/28/19 21:00 12/28/19 21:09 50 MG Lab Laboratory Tests Test 12/28/19 11:25 12/28/19 16:35 12/28/19 20:19 12/29/19 04:00 Glucose (Fingerstick) 120 mg/dL (70-99) 98 mg/dL (70-99) 65 mg/dL (70-99) Sodium Level 143 mmol/L (136-145) Potassium Level 4.0 mmol/L (3.5-5.1) Chloride Level 109 mmol/L (98-107) Carbon Dioxide Level 21 mmol/L (21-32) Anion Gap 13 (6-14) Blood Urea Nitrogen 59 mg/dL (8-26) Creatinine 3.7 mg/dL (0.7-1.3) Estimated GFR (Cockcroft-Gault) 17.3 Glucose Level 45 mg/dL (70-99) Calcium Level 7.9 mg/dL (8.5-10.1) Test 12/29/19 06:52 12/29/19 07:06 12/29/19 08:08 Glucose (Fingerstick) 58 mg/dL (70-99) 65 mg/dL (70-99) 72 mg/dL (70-99) Results All relevant outside records, renal labs, imaging studies, telemetry/EKG's were reviewed. Justicifation of Admission Dx: Justifications for Admission: Justification of Admission Dx: N/A Acute Renal Failure: Serum Cr > 4mg/dL MARTIN ESTEVEZ MD Dec 29, 2019 10:08
[2019-12-29 10:40] VITALS: BP 159/96
[2019-12-29] MEDS: oxyCODONE ER 10 MG TAB.ER.12H PO SCH ×2 (12:45→21:35)
--- NOTE | 2019-12-29 13:27 | PN ---
DATE: 12/29/2019 SUBJECTIVE: The patient is resting, slightly propped up in bed, no apparent distress. He is complaining of pain in both lower extremities, aggravated by walking. He is on hydrocodone, stated that it is not controlling his pain. He has had arterial Doppler ultrasound, which showed that there are monophasic waveforms seen from the mid posterior tibial artery distally finding suggest stenosis of the proximal and mid posterior tibial artery. No evidence of stenosis in the left lower extremity. He has not completed yet the bone scan. The nursing staff stated that he has episodes of nonsustained ventricular tachycardia. PHYSICAL EXAMINATION: GENERAL: When I examined him this morning, he looked well and was clearly in no apparent respiratory distress. No pallor, jaundice, cyanosis or thyromegaly. No jugular venous distention. No limb edema. VITAL SIGNS: His heart rate was 94, blood pressure 159/90, temperature was 97.8, respiratory rate was 19 and oxygen saturation was 98%. HEAD, EYES, EARS, NOSE AND THROAT: Showed normocephalic, atraumatic. NECK: Supple. HEART: Showed normal first and second heart sounds. No gallop or murmur. CHEST: Clear to auscultation. No crepitation or rhonchi. ABDOMEN: Scaphoid, soft, nontender. NEUROLOGIC: He is awake, alert, responding appropriately. All his cranial nerves are intact. He moves extremities without difficulty, ambulates without assistance or assistive devices. He has partially amputated left second toe, chronic wounds in his left big toe. He has wounds in his right big toe. He has also areas of erythema on the medial aspect of his right foot. He also stated he has drained an abscess on his left heel. His intake was 1480, output was 1200. LABORATORY DATA: His lab work as of yesterday, his white cell count was 8800, hemoglobin 12, hematocrit 36, MCV 86 and platelet count 250,000. His chemistry this morning showed a serum sodium of 143, potassium 4, chloride 109, bicarbonate 21, anion gap of 13, BUN 59, creatinine 3.7, estimated GFR was 17 mL per minute. His glucose has been consistently low. ASSESSMENT: 1. Infected right foot and chronic wound of the left big toe with possible cellulitis and concern for underlying osteomyelitis for which he is now on IV antibiotic in the form of Zyvox and Zosyn. 2. Coronary artery disease, status post percutaneous coronary intervention with stent deployment to left anterior and right coronary arteries. 3. Chronic systolic congestive heart failure due to ischemic cardiomyopathy with ejection fraction of only 35%. 4. Hypertension. 5. Hyperlipidemia. 6. Type 2 diabetes mellitus. 7. Acute on chronic kidney injury. Creatinine is steadily improving from 5.2-3.7, recurrent episode of hypoglycemia, for which I will discontinue all his oral hypoglycemic agent. If need be, we might use a low dose sliding scale once his blood sugars started rising. If the bone scan was unrevealing we might have to order an MRI. SAMM PRASAD MD DR: OH/jose JOB#: [id number] / [id number]
--- NOTE | 2019-12-29 13:35 | PDOC2 ---
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 He has wound to his left big toe that has not healed and actually had a mechanical fall about a week ago losing his footing and obtaining wound to his right big toe which has an infection currently. He was initially at [place] [facility] and transferred here for further treatment. Positive for claudication symptoms but also has diabetic neuropathy. There is some degree of noncompliance noting that he did not known that he has insurance since Januray of this yr and has been hesitant to follow up. He has been going to [facility] however, and actually saw a field merchandiser there maybe 3 months ago. He also has renal disease to which he had a temporary dialysis done a yr ago. Denies any recent arteriogram and no recent ischemic workup. He is known for ICM with past stents. He has not taken ASA for a while and just got restarted discontinued he said due to his renal function. Consult is for cardiomyopathy which currently no chest pain of resting SOA and negative for PND, orthopnea or peripheral edema. He does have some REYNOLDS but no significant difference from his baseline per him. No nausea or vomiting, no diarrhea. Denies any productive cough or fever. I reviewed his rhythm and it is SR with no NSVT but rather artifact. Cardiac ramirez he appears compensated. No significant peripheral edema. PAST MEDICAL HISTORY Past Medical History Cardiovascular: CAD, CHF, HTN, Hyperlipidemia, Other (cardiomyopathy; LVEF 25% by echo 07/23/2014), syncope Pulmonary: Other (PHYLLIS), pneumonia CENTRAL NERVOUS SYSTEM: Other (RLS), CVA GI: GERD Psych: Depression Musculoskeletal: Osteoarthritis, Other (chronic pain syndrome) Renal/: Chronic renal insuff Endocrine: Diabetes (2) Dermatology: Eczema PAST SURGICAL HISTORY Past Surgical History Tonsillectomy, Other (left ankle), PCI/BMS to LAD/RCA, HD cath placement FAMILY HISTORY Family History Coronary Artery Disease (Brother in his 40s) SOCIAL HISTORY Smoke: No ALCOHOL: none Drugs: Other (past cocaine use) CURRENT MEDICATIONS CURRENT MEDICATIONS Current Medications Medications (Trade) Dose Ordered Sig/Jerri Route PRN Reason Start Time Stop Time Status Last Admin Dose Admin Linezolid/Dextrose 300 ml @ 300 mls/hr Q12HR IV 12/28/19 21:00 12/29/19 10:47 Atorvastatin Calcium (Lipitor) 40 mg QHS PO 12/28/19 21:00 12/28/19 21:09 Labetalol HCl (Trandate) 100 mg BID PO 12/28/19 21:00 12/29/19 08:23 Trazodone HCl (Desyrel) 50 mg QHS PO 12/28/19 21:00 12/28/19 21:09 Pantoprazole Sodium (Protonix) 40 mg BIDAC PO 12/28/19 16:30 12/29/19 08:23 Hydralazine HCl (Apresoline Inj) 10 mg PRN Q4HRS PRN IVP ELEVATED BP, SEE COMMENTS 12/28/19 17:30 12/29/19 02:31 Oxycodone HCl (OxyCONTIN) 10 mg Q12HR PO 12/29/19 13:00 12/29/19 12:45 ALLERGIES ALLERGIES: Coded Allergies: No Known Drug Allergies (Unverified , 07/22/14) ROS Review of System 14 point ROS evaluated with pertinent positives noted per HPI PHYSICAL EXAM General: Alert, Oriented X3, Cooperative, No acute distress HEENT: Atraumatic, Mucous membr. moist/pink Lungs: Clear to auscultation, Normal air movement Heart: Regular rate (SR), Normal S1, Normal S2, Other (2/6 systolic murmur to LLS border) Abdomen: Soft, No tenderness Extremities: No cyanosis, No edema Skin: Other (foot wounds) Neuro: Normal speech, Sensation intact Psych/Mental Status: Mental status NL, Mood NL MUSCULOSKELETAL: Osteoarthritic changes both hands VITALS/I&O VITALS/I&O: Vital Signs Date Time Temp Pulse Resp B/P (MAP) Pulse Ox O2 Delivery O2 Flow Rate FiO2 12/29/19 12:46 Room Air 12/29/19 10:40 97.8 94 19 159/96 (117) 98 97.8 I & O 12/28/19 12/28/19 12/29/19 15:00 23:00 07:00 Intake Total 650 ml 650 ml 1050 ml Output Total 300 ml 0 ml Balance 350 ml 650 ml 1050 ml LABS Lab: Laboratory Tests Test 12/28/19 16:35 12/28/19 20:19 12/29/19 04:00 12/29/19 06:52 Glucose (Fingerstick) 98 mg/dL (70-99) 65 mg/dL (70-99) L 58 mg/dL (70-99) L Sodium Level 143 mmol/L (136-145) Potassium Level 4.0 mmol/L (3.5-5.1) Chloride Level 109 mmol/L (98-107) H Carbon Dioxide Level 21 mmol/L (21-32) Anion Gap 13 (6-14) Blood Urea Nitrogen 59 mg/dL (8-26) H Creatinine 3.7 mg/dL (0.7-1.3) H Estimated GFR (Cockcroft-Gault) 17.3 Glucose Level 45 mg/dL (70-99) L Calcium Level 7.9 mg/dL (8.5-10.1) L Test 12/29/19 07:06 12/29/19 08:08 12/29/19 11:05 12/29/19 13:22 Glucose (Fingerstick) 65 mg/dL (70-99) L 72 mg/dL (70-99) 56 mg/dL (70-99) L 83 mg/dL (70-99) Laboratory Tests 12/29/19 04:00 ECHOCARDIOGRAM ECHOCARDIOGRAM <Conclusion> The left ventricular systolic function is moderately impaired. The Ejection Fraction is 30-35%. Transmitral Doppler flow pattern is Grade I-abnormal relaxation pattern. Trace mitral regurgitation. Trace tricuspid regurgitation. The PA pressure was estimated at 20 mmHg. There is no evidence of significant pericardial effusion. DATE: 02/11/19 1352 STRESS TEST STRESS TEST Conclusion 1. No evidence of EKG changes to suggest ischemia with vasodilator testing. 2. Normal perfusion at stress/rest. 3. Mild LV dysfunction. EF 50% 4. Low to moderate risk for future CV events based on lower EF. DATE: 04/22/17 1306 HEART CATH HEART CATH Findings. Hemodynamics. Left ventricular pressure of 136/26, aortic root pressure 134/88. Coronaries. Left main. The left main had no lesions. Left anterior descending. The LAD had a mid 90% lesion. Left circumflex. The left circumflex had no lesions. Right coronary artery. The right coronary had a mid diffusely diseased lesion up to 80%. There was a second mid to distal lesion of 85%. <Conclusion> 2 vessel coronary artery disease. Successful stenting of the mid LAD decreasing a 90% lesion to 0%. Successful stenting of a distal right coronary artery lesion of 85% to 0% and a mid right coronary lesion of 80% to 0%. Bare-metal stents were placed. DATE: 03/08/15 6143 ASSESSMENT/PLAN ASSESSMENT/PLAN 1. Diabetic foot ulcers: wound care team following. Being ruled out for oste omyelitis 2. Recent mechanical fall resulting to some of his foot wound. No syncope 3. Severe RLE PAD with claudication: noted per duplex. discussed with RYAN FERGUSON 4. ICM: prior EF 35%. No NSVT, noted artifact. Maintaining SR. Compensated 5. CAD: past stents 6. HTN: labile 7. HLP 8. DM2: noted with hypoglycemic episodes 9. Severe LEATHA: temporary HD done a yr ago at [facility]. Nephrology following 10. Suspecting some noncompliance Recommendations 1. TTE. Obtain [facility] cardiac records and if any arteriogram. Disscussed with RN will doppler. No necrosis, awaiting bone scan 2. EKG. Check lipids and UDS 3. Restart Antiplatelet therapy. Secondary prevention measures. Restart home BP meds. Hydralazine IV PRN 4. Discussed compliance 5. Wound care per specialist. If wound fails to heal then will need arteriogram and likely HD. Avoid nephrotoxins at this time. YOANA BROWN MD 12/29/19 1515: CARDIAC CONSULT ASSESSMENT/PLAN ASSESSMENT/PLAN Patient seen and examined Discussed with our nurse practitioner. Agree with his assessment and plan. Diabetic foot ulcers. Wound care following. Being evaluated for possible osteomyelitis. Severe lower extremity peripheral arterial disease. Starting antiplatelet medi cation. Awaiting further recommendations of wound care. Possible future arteriogram. History of coronary disease. Past stent placement. No typical chest pain. Continue medical treatment. LEATHA. Being evaluated by the renal service. History of moderately decreased LV function. We will recheck an echocardiogram. Thank you for allowing us to participate in the care of your patient. GABRIEL CHOPRA APRN Dec 29, 2019 13:35 YOANA BROWN MD Dec 29, 2019 15:15
--- NOTE | 2019-12-29 14:30 | PDOC2 ---
Chief Complaint: Chief Complaint: Bilat great toe diabetic foot ulcers Vital Signs: Vital Signs: Vital Signs Date Time Temp Pulse Resp B/P (MAP) Pulse Ox O2 Delivery O2 Flow Rate FiO2 12/28/19 07:33 97.8 88 18 162/104 (123) 99 Room Air 97.8 Vital Signs Date Time Temp Pulse Resp B/P (MAP) Pulse Ox O2 Delivery O2 Flow Rate FiO2 12/29/19 12:46 Room Air 12/29/19 10:40 97.8 94 19 159/96 (117) 98 97.8 Allergies: Allergies: Allergies Coded Allergies Type Severity Reaction Last Updated Verified No Known Drug Allergies 07/22/14 No Medications: Home Meds Active Scripts Atorvastatin Calcium (ATORVASTATIN CALCIUM) 40 Mg Tablet, 40 MG PO QHS for 30 Da ys, #30 TAB Prov:VERITO TINAJERO MD 03/19/18 Clopidogrel Bisulfate (PLAVIX) 75 Mg Tablet, 75 MG PO DAILYWBKFT, #30 2 Refills Prov:ROSEANNE RAHMAN MD 03/04/15 Reported Medications Linagliptin (TRADJENTA) 5 Mg Tablet, 5 MG PO DAILY for TYPE 2 DIABETES, TAB 12/28/19 Glimepiride (AMARYL) 4 Mg Tablet, 1 TAB PO BID for Glucose, #60 TAB 5 Refills 12/28/19 Trazodone Hcl (TRAZODONE HCL) 50 Mg Tablet, 1 TAB PO QHS for sleep, #30 TAB 1 Refill 12/28/19 Gabapentin (GABAPENTIN ) 300 Mg Capsule, 300 MG PO BID for NEUROGENIC PAIN, CAP 12/28/19 Aspirin (Children's Aspirin) 81 Mg Tab.chew, 1 TAB PO DAILY for HTN for 30 Days, #30 TAB 0 Refills 12/28/19 Carvedilol (COREG) 25 Mg Tablet, 25 MG PO BIDWMEALS for CARDIAC, TAB 12/27/19 Ropinirole Hcl (ROPINIROLE HCL) 0.5 Mg Tablet, 0.5 MG PO HS for rls 12/27/19 Labetalol Hcl (LABETALOL HCL) 100 Mg Tablet, 1 TAB PO BID for HTN, #60 TAB 5 Refills 03/17/19 Pantoprazole Sodium (PROTONIX) 20 Mg Tablet.dr, 2 TAB PO BID for GERD, #30 TAB 02/11/19 Temazepam (TEMAZEPAM) 30 Mg Capsule, 1 CAP PO QHS for insomnia, #30 CAP 1 Refill 02/11/19 Discontinued Reported Medications Furosemide (FUROSEMIDE) 20 Mg Tablet, 30 MG PO BID for water removal, TAB 12/27/19 Amlodipine Besylate (AMLODIPINE BESYLATE) 10 Mg Tablet, 10 MG PO DAILY for htn 12/27/19 Clonidine Hcl (CLONIDINE HCL) 0.1 Mg Tablet, 0.1 MG PO QIDPRN PRN for HYPERTENSION, TAB 12/27/19 Clonidine Hcl (CLONIDINE HCL) 0.1 Mg Tablet, 0.1 MG PO DAILY for htn 12/27/19 Hydralazine Hcl (HYDRALAZINE HCL) 100 Mg Tablet, 100 MG PO QID for htn 12/27/19 Sacubitril/Valsartan (Entresto 97 mg-103 mg Tablet) 1 Each Tablet, 1 EACH PO BID for CHF, TAB 02/11/19 Potassium Chloride (POTASSIUM CHLORIDE ) 20 Meq Tablet.er, 20 MEQ PO DAILY for replacement, TAB.SR 02/11/19 Spironolactone (SPIRONOLACTONE) 25 Mg Tablet, 1 TAB PO DAILY for diutretic, #90 TAB 1 Refill 02/11/19 Cyclobenzaprine Hcl (CYCLOBENZAPRINE HCL) 10 Mg Tablet, 1 TAB PO TID PRN for MUSCLE SPASMS, #90 TAB 02/11/19 Hydrocodone Bit/Acetaminophen (HYDROCODONE-APAP 10-300) 1 Each Tablet, 1 TAB PO Q6HRS PRN for PAIN, TAB 0 Refills 07/22/14 Amitriptyline Hcl (AMITRIPTYLINE HCL) 100 Mg Tablet, 1 TAB PO QHS, #30 TAB 1 Refill 07/22/14 Hydrocodone/Acetaminophen (Hydrocodone-Acetamin 7.5-325) 1 Each Tablet, 1 TAB PO Q6HRS for pain 12/27/19 Ropinirole Hcl (ROPINIROLE HCL) 2 Mg Tablet, 0.5 MG PO QHS for restless leg, TAB 07/22/14 PCP: PCP: Dr Dougherty Pain: Pain Location: Leg (RLE. Pt reports pain radiates from his heel to his knee, is intermittent and is not relieved with pain medication.) Date of Onset Pt with long standing uncontrolled DM. Pt reports 3 month he developed a wound on his left second toe. The wound became infected and partial amputation of that toe was performed at [facility]. Patient states that the left great toe wound began soon thereafter. Patient denies pain to the affected toe, stating he has chronic neuropathy of bilateral feet. Patient states that approximately 2 weeks ago he noticed a pus filled blister on the right plantar foot. He was able to extract pus from the area. Patient states that soon thereafter he developed pain in his heel with difficulty walking. Patient states that the pustule did heal up. Patient states that 2 days prior to coming to the hospital he tripped over a curb and scraped his right great toe causing a wound on it. Patient states that he does have orthotic footwear that he wears with his boots, however these were bought [id number] and were not custom. PMH 1. Coronary artery disease, status post PCI with stent deployment to the left anterior descending and right coronary artery. 2. Ischemic cardiomyopathy with chronic systolic congestive heart failure. His left ventricular ejection fraction was only 30-35% on most recent echocardiogram. 3. He is known to have hypertension, hyperlipidemia, type 2 diabetes, chronic renal insufficiency, depression, gastroesophageal reflux disease, and osteoarthritis. Surgical History Significant for tonsillectomy and partial amputation of his left second toe. [facility] Patient states that prior to admission he lived with his daughter and her children. Patient denies tobacco use, alcohol abuse or illicit drug use. Of note, patient did test positive for cocaine on previous admission. Patient states that he does use [place] for chronic pain, stating he uses 4 to 8 pills /day. General: No: Chills, Fatigue, Appetite Respiratory: No: Orthopnea, Shortness of breath, SOB with excertion Gastrointestinal: No Nausea, No Vomiting, No Diarrhea, No Constipation Genitourinary: No Dysuria, No Frequency, No Incontinence Skin: Yes Other (Wounds as noted in HPI) Neurological: No Behavorial Changes Psychological: No: Anxiety, Depression Physical Exam Patient is awake and alert, 53-year-old male who is in no apparent distress. Vital signs are stable and patient is afebrile. Respirations are even and unlabored. Patient is on room air not requiring supplemental oxygen. Abdomen is soft, nondistended and nontender to palpation. Bilateral lower extremities are without pitting edema. Skin is warm, dry and pink. The right great toe has a 1.7 x 1.7 open ulceration to the distal point. Wound bed is 90% hyper granulated, 10% slough. Surrounding tissue is without erythema or edema. There is moderate serosanguineous drainage present without an odor. The left great toe has a 1 x 0.8x0.7cm open ulceration wound bed is 100% pale granulation. Surrounding tissue has thick callus development without erythema or edema present. There is moderate serosanguineous drainage without an odor. The right heel is tender to palpation on the plantar aspect. There is erythema noted distally to the medial and lateral malleolus. These areas of erythema were outlined with a sharpie and dated. A/P Bilateral great toe DFU's -Arterial Doppler performed on 12/28/19 reveals monophasic wave waveforms of the right lower extremity noted from the mid VALVE INSERTER to the distal VALVE INSERTER, suggestive of stenosis. The left lower extremity has triphasic 1 waveforms noted throughout the left lower extremity arterial vasculature without evidence of stenosis. -Bone scan ordered per PCP, results pending at this time -Due to history of pustule of the right plantar foot and now presentation of erythema and edema with associated pain, recommend MRI to rule out underlying abscess. Due to current renal status will have to perform without contrast. -Following results of bone scan and MRI, will tentatively plan to debride bilateral wounds on 86 -To the right great toe: Cleanse and pat dry. Apply skin prep to surrounding tissue. Apply Thera honey to wound bed and cover with Xeroform and gauze. Change daily or as needed if dressing loose or saturated -To the left great toe: Cleanse and pat dry. Apply skin prep to the surrounding tissue. Apply iodoform to the wound bed and cover with gauze. Change every other day or as needed if dressing loose or saturated -Gold Stamper consult for offloading footwear. Patient should not be applying pressure to the affected areas. ROSITA GUEVARA APRN Dec 29, 2019 14:30
[2019-12-29 15:00] VITALS: BP 162/92
[2019-12-29] MEDS: MULTIVITAMIN with MINERAL TABLET. PO SCH (15:24)
[2019-12-29] MEDS: ASCORBIC ACID 500 MG TABLET PO SCH (15:24)
--- NOTE | 2019-12-29 15:31 | EKG ---
[facility] [address] [place] [address] Test Date: 2019-12-29 Test Time: 15:21:20 Pat Name: BERTRAND COLMENARES Department: Room: [facility] Gender: M Exercise Rider: : 1965 Requested By: GABRIEL CHOPRA Order Number: [id number] Reading MD: Measurements Intervals [place] Rate: 87 P: 21 IN: 178 QRS: -19 QRSD: 96 T: 57 QT: 386 QTc: 465 Interpretive Statements SINUS RHYTHM VENTRICULAR PREMATURE COMPLEX(ES) LEFTWARD AXIS ABNORMAL ECG RI6.02 Compared to ECG 03/17/2019 14:04:14 Left-axis deviation now present Myocardial infarct finding no longer present
[2019-12-29 15:53] LABS: CHOLESTEROL/HDL RATIO 3.9
--- NOTE | 2019-12-29 16:20 | RAD ---
Three-phase bone scan Clinical indications: Evaluation for osteomyelitis of both feet. Bilateral great toe diabetic wounds. Decreased pulses. TECHNIQUE: After IV infusion of 26 mCi of technetium 99m MDP, three-phase bone scan of both feet and ankles was performed. COMPARISON: No previous bone scan available. No recent radiographic studies reflect. FINDINGS: Hyperemia of both feet and ankles is seen. There is blood pool activity involving the distal tip of the first digit of the right foot and the mid and distal aspects of the first digit of the left foot and there is also blood pool activity involving the medial aspect of the heel of the right foot. Delayed imaging demonstrates a focus of increased uptake involving the distal tip of the first digit of the right foot and increased uptake involving what appears to be the proximal aspect of the distal phalanx of the left foot. No abnormal increased activity is seen involving the right heel. There is mild increased activity seen involving the first metatarsal phalangeal joints of both feet more so on the left side which could be due to arthritis. There is activity seen involving the ankle and the tarsal metatarsal joints and intertarsal joints of both feet and ankles consistent with osteoarthritis or could be related to Charcot's neuroarthropathy. IMPRESSION: Bone scan findings are indicative of osteomyelitis of the distal tip of the first distal phalanx of the right foot and osteomyelitis of the proximal aspect of the first distal phalanx of the left foot. Correlation with a radiographic series of both feet is recommended. In addition, there may be soft tissue infection or ulceration of the medial aspect of the right heel. Electronically signed by: Kwame House MD (12/29/2019 4:17 PM) [id number]
--- NOTE | 2019-12-29 16:35 | CARD ---
MR#: [id number] Date of Study: 12/29/2019 Ordering Physician: GABRIEL CHOPRA, Referring Physician: GABRIEL CHOPRA, Tech: Carmella Wilkes [facility] APPROVED REPORT EXAM: Two-dimensional and M-mode echocardiogram with Doppler and color Doppler. Other Information Quality : Good INDICATION Cardiomyopathy 2D DIMENSIONS RVDd3.0 (2.9-3.5cm)Left Atrium(2D)3.8 (1.6-4.0cm) IVSd1.1 (0.7-1.1cm)Aortic Root(2D)2.9 (2.0-3.7cm) LVDd5.6 (3.9-5.9cm)LVOT Diameter2.1 (1.8-2.4cm) PWd1.0 (0.7-1.1cm)LVDs4.7 (2.5-4.0cm) FS (%) 15.3 %SV48.8 ml LVEF(%)35.0 (>50%) Aortic Valve AoV Peak Santi.146.1cm/sAoV VTI29.2cm AO Peak GR.8.5mmHgLVOT Peak Santi.89.0cm/s AO Mean GR.6mmHgAVA (VMAX)2.09cm2 LALO (VTI)2.20cm2 Mitral Valve MV E Gymznhaq084.6cm/sMV DECEL QMHT640kl MV A Eccafakm481.5cm/sE/A Ratio1.1 Tricuspid Valve TR P. Coeejcuf572ri/sRAP DCHLQPCE9noQx TR Peak Gr.60yrFvWKXZ62fxLn Pulmonary Vein S1 Ghafatkn06.9cm/sD2 Eydfwjxw31.9cm/s LEFT VENTRICLE The left ventricle is normal size. There is normal left ventricular wall thickness. Left ventricle sy stolic function is moderately impaired. The Ejection Fraction is 35%. There is global hypokinesis of the left ventricle. Transmitral Doppler flow pattern is Grade I-abnormal relaxation pattern. RIGHT VENTRICLE The right ventricle is normal size. The right ventricular systolic function is normal. ATRIA The left atrium size is normal. The right atrium size is normal. The interatrial septum is intact wit h no evidence for an atrial septal defect or patent foramen ovale as noted on 2-D or Doppler imaging. AORTIC VALVE The aortic valve is calcified but opens well. Doppler and Color Flow revealed trace aortic regurgitat ion. There is no significant aortic valvular stenosis. MITRAL VALVE The mitral valve is calcified but opens well. There is no evidence of mitral valve prolapse. There is no mitral valve stenosis. Doppler and Color-flow revealed trace mitral regurgitation. TRICUSPID VALVE The tricuspid valve is normal in structure and function. Doppler and Color Flow revealed mild tricusp id regurgitation. There is mild pulmonary hypertension. The PA pressure was estimated at 39 mmHg. The re is no tricuspid valve stenosis. PULMONIC VALVE The pulmonic valve is not well visualized. Doppler and Color Flow revealed no pulmonic valvular regur gitation. There is no pulmonic valvular stenosis. GREAT VESSELS The aortic root is normal in size. The ascending aorta is mildly dilated at 3.5 cm. The IVC is normal in size and collapses >50% with inspiration. PERICARDIAL EFFUSION There is no evidence of significant pericardial effusion. Critical Notification Critical Value: No <Conclusion> Left ventricle systolic function is moderately impaired. The Ejection Fraction is 35%. Transmitral Doppler flow pattern is Grade I-abnormal relaxation pattern. Trace mitral regurgitation. Mild tricuspid regurgitation. The PA pressure was estimated at 39 mmHg. There is no evidence of significant pericardial effusion. Signed by : Amish Zepeda, Electronically Approved : 12/29/2019 16:34:41
[2019-12-29 17:13] LABS: BARBITURATES NEG (NEG); BENZODIAZEPINES NEG (NEG); CANNABINOIDS NEG (NEG); COCAINE NEG (NEG); METHADONE NEG (NEG); OPIATES POS (NEG); PHENCYCLIDINE NEG (NEG)
[2019-12-29 17:15] LABS: AMPHETAMINE/METHAMPHETAMINE NEG (NEG)
[2019-12-29 19:00] VITALS: BP 198/111
[2019-12-29] MEDS: traZODone 50 MG TABLET. PO SCH (21:35)
[2019-12-29] MEDS: LACTOBACILLUS RHAMNOSUS GG 1 CAPSULE. PO SCH (21:35)
[2019-12-29] MEDS: ATORVASTATIN CALCIUM 40 MG TABLET. PO SCH (21:35)
[2019-12-29] MEDS: rOPINIRole 0.25 MG TABLET. PO SCH (21:36)
[2019-12-29 23:00] VITALS: BP 199/120
[2019-12-30] VITALS (7 sets, daily range): BP systolic 169–212; BP diastolic 11–126
[2019-12-30] MEDS: HYDROcodone/APAP 7.5/325MG 1 TAB TABLET PO PRN ×4 (01:36→18:48)
[2019-12-30] MEDS: PIPERACILLIN/TAZOBACTAM 2.25 GM in IV NORMAL SALINE 50ML 50 ML IV SCH ×4 (06:04→23:52)
[2019-12-30] MEDS: INSULIN LISPRO 300 UNITS/3 ML VIAL. SQ SCH ×3 (08:00→17:00)
[2019-12-30 08:01] LABS: ALBUMIN 2.4 g/dL (3.4-5.0); BASO # 0.1 x10^3/uL (0.0-0.2); BASO % 1 % (0-3); CALCIUM 8.4 mg/dL (8.5-10.1); CREATININE 2.9 mg/dL (0.7-1.3); EOS # 0.4 x10^3/uL (0.0-0.7); EOS % 4 % (0-3); HEMATOCRIT 36.9 % (39.0-53.0); HEMOGLOBIN 11.9 g/dL (13.0-17.5); LYMPH # 0.9 x10^3/uL (1.0-4.8); LYMPH % 8 % (24-48); MEAN CORPUSCULAR HEMOGLOBIN 28 pg (25-35); MEAN CORPUSCULAR HGB CONC 32 g/dL (31-37); MEAN CORPUSCULAR VOLUME 87 fL (79-100); MONO # 0.8 x10^3/uL (0.0-1.1); MONO % 7 % (0-9); NEUT # 8.6 x10^3/uL (1.8-7.7); NEUT % 80 % (31-73); PHOSPHORUS 3.9 mg/dL (2.6-4.7); PLATELET COUNT 264 x10^3/uL (140-400); RED BLOOD COUNT 4.23 x10^6/uL (4.30-5.70); RED CELL DISTRIBUTION WIDTH 14.8 % (11.5-14.5); WHITE BLOOD COUNT 10.9 x10^3/uL (4.0-11.0)
[2019-12-30] MEDS: ASCORBIC ACID 500 MG TABLET PO SCH (08:05)
[2019-12-30] MEDS: CLOPIDOGREL BISULFATE 75 MG TABLET PO SCH (08:06)
[2019-12-30] MEDS: LACTOBACILLUS RHAMNOSUS GG 1 CAPSULE. PO SCH ×2 (08:06→20:54)
[2019-12-30] MEDS: LABETALOL HCL 100 MG TABLET. PO SCH (08:06)
[2019-12-30] MEDS: ASPIRIN CHEWABLE 81 MG TABLET. PO SCH (08:06)
[2019-12-30] MEDS: MULTIVITAMIN with MINERAL TABLET. PO SCH (08:07)
[2019-12-30] MEDS: GABAPENTIN 300 MG CAPSULE. PO SCH ×2 (08:07→20:54)
[2019-12-30] MEDS: PANTOPRAZOLE 40 MG TABLET.DR. PO SCH ×3 (08:07→18:58)
[2019-12-30] MEDS: CARVEDILOL 12.5 MG TABLET. PO SCH ×2 (08:08→16:39)
[2019-12-30] MEDS: oxyCODONE ER 10 MG TAB.ER.12H PO SCH ×2 (08:08→20:55)
[2019-12-30] MEDS: IV NORMAL SALINE 1000ML BAG 1,000 ML IV SCH (08:30)
--- NOTE | 2019-12-30 08:30 | NUR ---
Wound Care Called results of Bone Scan to Kady wound WAITER/WAITRESS ROOM SERVICE, she stated she will not see pt today as we will defer to Dr. Dougherty and his surgical recommendations. WC will continue to follow.
[2019-12-30] MEDS ORDERED: GLIMEPIRIDE 2 MG TABLET. PO SCH (09:00)
--- NOTE | 2019-12-30 09:42 | PDOC ---
Infectious Disease Note Vital Sign Vital Signs Vital Signs Date Time Temp Pulse Resp B/P (MAP) Pulse Ox O2 Delivery O2 Flow Rate FiO2 12/30/19 08:08 20 98 Room Air 12/30/19 08:08 101 182/109 12/30/19 03:00 97.8 97.8 Labs Lab Laboratory Tests Test 12/29/19 11:05 12/29/19 13:22 12/29/19 16:35 12/29/19 16:55 Glucose (Fingerstick) 56 mg/dL (70-99) 83 mg/dL (70-99) 73 mg/dL (70-99) Urine Opiates Screen Pos (NEG) Urine Methadone Screen Neg (NEG) Urine Barbiturates Neg (NEG) Urine Phencyclidine Screen Neg (NEG) Urine Amphetamine/Methamphetamine Neg (NEG) Urine Benzodiazepines Screen Neg (NEG) Urine Cocaine Screen Neg (NEG) Urine Cannabinoids Screen Neg (NEG) Urine Ethyl Alcohol Neg (NEG) Test 12/29/19 20:56 12/30/19 06:15 12/30/19 07:16 Glucose (Fingerstick) 103 mg/dL (70-99) 52 mg/dL (70-99) White Blood Count 10.9 x10^3/uL (4.0-11.0) Red Blood Count 4.23 x10^6/uL (4.30-5.70) Hemoglobin 11.9 g/dL (13.0-17.5) Hematocrit 36.9 % (39.0-53.0) Mean Corpuscular Volume 87 fL (79-100) Mean Corpuscular Hemoglobin 28 pg (25-35) Mean Corpuscular Hemoglobin Concent 32 g/dL (31-37) Red Cell Distribution Width 14.8 % (11.5-14.5) Platelet Count 264 x10^3/uL (140-400) Neutrophils (%) (Auto) 80 % (31-73) Lymphocytes (%) (Auto) 8 % (24-48) Monocytes (%) (Auto) 7 % (0-9) Eosinophils (%) (Auto) 4 % (0-3) Basophils (%) (Auto) 1 % (0-3) Neutrophils # (Auto) 8.6 x10^3/uL (1.8-7.7) Lymphocytes # (Auto) 0.9 x10^3/uL (1.0-4.8) Monocytes # (Auto) 0.8 x10^3/uL (0.0-1.1) Eosinophils # (Auto) 0.4 x10^3/uL (0.0-0.7) Basophils # (Auto) 0.1 x10^3/uL (0.0-0.2) Sodium Level 141 mmol/L (136-145) Potassium Level 4.0 mmol/L (3.5-5.1) Chloride Level 108 mmol/L (98-107) Carbon Dioxide Level 20 mmol/L (21-32) Anion Gap 13 (6-14) Blood Urea Nitrogen 53 mg/dL (8-26) Creatinine 2.9 mg/dL (0.7-1.3) Estimated GFR (Cockcroft-Gault) 23.0 Glucose Level 50 mg/dL (70-99) Calcium Level 8.4 mg/dL (8.5-10.1) Phosphorus Level 3.9 mg/dL (2.6-4.7) Albumin 2.4 g/dL (3.4-5.0) Objective Assessment pt seen, consult dictated Plan Plan of Care / DULCE MARIA SRIVASTAVA MD Dec 30, 2019 09:42
--- NOTE | 2019-12-30 10:44 | PN ---
DATE: 12/30/2019 SUBJECTIVE: The patient is resting, slightly propped up in his recliner, in no apparent distress. He continued to complain of pain in his feet. His bone scan showed that the patient has finding consistent with osteomyelitis of the distal tip of the first distal phalanx of the right foot and osteomyelitis of the proximal aspect of the first distal phalanx of the left foot. The patient is already on IV antibiotic and we did consult the Infectious Disease specialist as well as the vascular surgeon to assist the management. OBJECTIVE: GENERAL: When I saw him this morning, he looked well and was clearly in no apparent respiratory distress, pale, no jaundice, cyanosis, or thyromegaly. No jugular venous distention. No limb edema. VITAL SIGNS: His heart rate was 101, blood pressure was 182/109, temperature was 97.8, respiratory rate was 18, and oxygen saturation was 98%. HEAD, EYES, EARS, NOSE, AND THROAT: Normocephalic, atraumatic. NECK: Supple. HEART: Showed normal first and second heart sounds. No gallop, rub, or murmur. CHEST: Clear to auscultation. No crepitation or rhonchi. ABDOMEN: Distended, soft, nontender. NEUROLOGIC: He is awake, alert, responding appropriately. Cranial nerves are intact. He moves extremities without difficulty. He does ambulate without assistance or assistive devices. His intake over the last 24 hours was 2350, output was 300. LABORATORY DATA: As of this morning, his serum sodium was 141, potassium 4, chloride 108, bicarbonate 20, anion gap of 13, BUN 53, creatinine was 2.9, estimated GFR was 23, glucose was 50. Calcium was 8.4, phosphorus was 3.9, albumin was 2.4. His white cell count was 10,900; hemoglobin 12; hematocrit 36; MCV 87 and platelet count 264,000. ASSESSMENT: 1. Infected right foot and chronic wound of the left big toe with cellulitis detected on the bone scan. He is now on IV Zyvox and Zosyn. 2. Coronary artery disease, status post percutaneous coronary intervention with stent deployment to the left anterior descending and right coronary arteries. 3. Chronic congestive heart failure due to ischemic cardiomyopathy with an ejection fraction on his most recent echocardiogram of 35%. 4. Eihdq-bg-sgnwkyx kidney injury. His creatinine is steadily improving from 5.2, down to 2.9. 5. Hypertension. 6. Hyperlipidemia. 7. Type 2 diabetes mellitus with recurrent episode of hypoglycemia, for which I discontinued all his oral hypoglycemic agents. PLAN: Obviously to continue monitoring his blood sugar. Continue with IV antibiotics. I have consulted the vascular surgeon as his arterial Doppler ultrasound showed that the patient has monophasic waveforms seen from the mid posterior tibial artery distally, finding suggests a stenosis between the proximal and mid posterior tibial artery, has no evidence of stenosis in the left lower extremity. Dictation ends here. SAMM PRASAD MD DR: OH/jose JOB#: [id number] / [id number]
--- NOTE | 2019-12-30 10:46 | CONS ---
DATE OF CONSULTATION: 12/30/2019 REQUESTING PHYSICIAN: Devendra Dougherty MD REASON FOR CONSULTATION: Osteomyelitis. HISTORY OF PRESENT ILLNESS: This is a 53-year-old gentleman with multiple medical problems who also with noncompliance. The patient was seen at [facility] with complaining of pain in the big toes. The patient subsequently was transferred here for some time. The patient says he has a wound on the left big toe for 3 months and the right big toe that he stepped into something a week ago. The patient had a white count of 13,000 at that time. BUN and creatinine 80 and 5.3. The patient is transferred here for further management. The patient is put on Zyvox and Zosyn. The patient denies any fever. Denies any nausea, vomiting, or diarrhea. Denies any chest pain, shortness of breath, abdominal pain, urinary symptoms or bowel symptoms. PAST MEDICAL HISTORY: Positive for diabetes mellitus, hypertension, hyperlipidemia, renal insufficiency, gastroesophageal reflux disease, coronary artery disease, status post PTCA done, ischemic cardiomyopathy and also congestive heart failure. PAST SURGICAL HISTORY: The patient has had second partial toe amputation done in the past. SOCIAL HISTORY: Negative for smoking. Negative for alcohol use or his drug screen was positive with cocaine in the past. ALLERGIES: No known drug allergies. REVIEW OF SYSTEMS: As per the HPI, all other systems reviewed and are negative. CURRENT MEDICATIONS: Reviewed. PHYSICAL EXAMINATION: GENERAL: Alert and oriented gentleman, not in distress. VITAL SIGNS: Stable. Afebrile. HEENT: NAD. NECK: Supple. No JVP, no lymphadenopathy. LUNGS: Clear. HEART: S1, S2 regular. ABDOMEN: Benign. EXTREMITIES: The patient does have right big toe ulcer on the distal end. There is some minor breakdown on the dorsal surface of the foot and there is red patch below the ankle on the right foot. Clinically, there is no deep wound or chronic looking wound, enough to be able to say osteomyelitis on the right big toe. Left big toe does have a chronic wound, which looks like he probably has osteomyelitis there. The wound is on the plantar and medial surface of the big toe. SKIN: Rest of skin examination unremarkable. NEUROLOGIC: The patient is alert, awake and appropriate. No focal neurologic deficit. LABORATORY DATA: White count is 10.9, hemoglobin 11.9, platelets are normal. BUN and creatinine is 53 and 2.9. The urine drug screen done yesterday showed opiates only positive. Bone scan was done, which showed osteomyelitis of the distal tip of the distal phalanx of the first toe on the right foot as well as distal proximal aspect of the first distal phalanx of the left foot. IMPRESSION: 1. Left big toe chronic ulcer with bone scan positive for osteomyelitis. 2. Right big toe ulcer. Bone scan is positive for osteomyelitis, but there is no clinical evidence of chronic or deep wound on to the right big toe. 3. Right foot cellulitis. 4. Peripheral arterial disease. 5. Coronary artery disease. 6. Diabetes. 7. Hypertension. 8. Noncompliance. 9. Renal insufficiency. RECOMMENDATIONS: Agree with Makcenzie and [place]. Supportive care. Vascular Surgery is on the case. Hopefully, it can be quickly manage on to the left big toe amputation. Supportive care and we will continue to follow. Thank you very much, Dr. Dougherty, for giving me the opportunity to participate in this patient's care. DULCE MARIA SRIVASTAVA MD DR: LATASHA/jose JOB#: [id number] / [id number]
--- NOTE | 2019-12-30 11:05 | NUR ---
SW following. Discussed with RN, pt on IV abx, may require amputation. SW will continue to follow for discharge planning.
--- NOTE | 2019-12-30 11:54 | PDOC ---
DATE OF SERVICE DATE: 12/30/19 TIME: 11:52 SUBJECTIVE ROS Pt tearful, states he is just thinking , he found out he will need amputation of his big toe OBJECTIVE Vital Signs Vital Signs Date Time Temp Pulse Resp B/P (MAP) Pulse Ox O2 Delivery O2 Flow Rate FiO2 12/30/19 11:00 97.8 78 18 198/108 (138) 98 Room Air 97.8 I & 0 Intake and Output 12/30/19 07:00 Intake Total 1800 ml Output Total 1200 ml Balance 600 ml Intake Oral 1800 ml Output Urine Total 1200 ml # Voids 3 PHYSICAL EXAM Physical Exam GENERAL: NAD HEEN: Om moist , On RA NECK: Supple. HEART:ALEJANDRA + LUNGS Decreased at bases, Non labored ABDOMEN: soft, nontender. NEUROLOGIC: grossly normal EXTREMITIES: No LE edema, he has chronic wounds in the left big toe, status post partial amputation of the left second toe. Wounds in the right big toe with surrounding erythema and erythema on the medial aspect of left foot According to him an abscess in his left heel that he drained himself and large amount of pus came out. - No Eldridge SKIN No rash DIAGNOSIS/ASSESSMENT Assessment & Plan LEATHA -suspect ATN, Cr improved some with IVF peaked at 5.2 at [facility] Unremarkable US and UA in 2019 , CT scan at [facility] on 12/26- Unremarkable Kidneys Renal function improving, Cr 2.9 ,Currently Pt asymptomatic ,No emergent indication for LANG INTERPRETER , Pt has refused to go on Dialysis Supportive care, IVF avoid nephrotoxins, strict I/O CKD stage 3 - Suspect sec to HTN and CHF Cr in 2019 at 2nfd Hospitalization at [facility] was 2.4-3 Hx of LEATHA - at [facility] requiring HD x 2 ?November/Dec Hospitalized at [facility] Jan 2019 with BUN/Cr 130/ 6.5, renal function improved with Cr in 2's He still doesn't see Nephrology as OP despite recommendations Cellulitis both feet with possible underlying osteomyelitis Left big toe chronic ulcer with bone scan positive for osteomyelitis. Vascular Following Right big toe ulcer. Bone scan is positive for osteomyelitis, but there is no clinical evidence of chronic or deep wound on to the right big toe. Chronic pain syndrome chronic opioid and benzo use Cardiomyopathy: EF 30-35% in 2019 HTN: BP high suspect due to Chronic Non compliance DM2 : per PCP CAD: PCI/BMS to LAD/RCA, clinically stable. Anemia- Hgb stable, No indication for CELENA Chronic Noncompliance with meds, appointments COMMENT/RELEVANT DATA Meds Current Medications Medications (Trade) Dose Ordered Sig/Jerri Start Time Stop Time Status Last Admin Dose Admin Acetaminophen (Tylenol) 650 mg PRN Q6HRS PRN 12/27/19 20:30 Acetaminophen/ Hydrocodone Bitart (Lortab 7.5/325) 1 tab PRN Q4HRS PRN 12/28/19 01:45 12/30/19 06:29 1 TAB Amlodipine Besylate (Norvasc) 10 mg DAILY 12/30/19 10:15 Ascorbic Acid (Vitamin C) 500 mg DAILY 12/29/19 14:00 12/30/19 08:05 500 MG Aspirin (Aspirin Chewable) 81 mg DAILY 12/28/19 13:00 12/30/19 08:06 81 MG Atorvastatin Calcium (Lipitor) 40 mg QHS 12/28/19 21:00 12/29/19 21:35 40 MG Carvedilol (Coreg) 25 mg BIDWMEALS 12/27/19 21:00 12/30/19 08:08 25 MG Clopidogrel Bisulfate (Plavix) 75 mg DAILYWBKFT 12/28/19 13:00 12/30/19 08:06 75 MG Dextrose (Dextrose 50%-Water Syringe) 12.5 gm PRN Q15MIN PRN 12/27/19 20:30 Gabapentin (Neurontin) 300 mg BID 12/28/19 13:00 12/30/19 08:07 300 MG Glimepiride (Amaryl) 2 mg DAILY 12/30/19 09:00 12/29/19 12:42 DC Hydralazine HCl (Apresoline Inj) 10 mg PRN Q4HRS PRN 12/28/19 17:30 12/29/19 23:40 10 MG Insulin Human Lispro (HumaLOG) 0-5 UNITS TIDWMEALS 12/28/19 08:00 Labetalol HCl (Trandate) 100 mg BID 12/28/19 21:00 12/30/19 08:06 100 MG Lactobacillus Rhamnosus (Culturelle) 1 cap BID 12/29/19 21:00 12/30/19 08:06 1 CAP Linagliptin (Tradjenta) 5 mg DAILY 12/28/19 13:00 12/29/19 12:27 DC 12/28/19 12:36 5 MG Linezolid/Dextrose 300 ml @ 300 mls/hr Q12HR 12/28/19 21:00 12/30/19 08:09 300 MLS/HR Multivitamins (Thera M Plus) 1 tab DAILY 12/29/19 14:00 12/30/19 08:07 1 TAB Non-Formulary Medication (Carvedilol (Coreg)) 25 mg BIDWMEALS 12/28/19 17:00 UNV Non-Formulary Medication (Ropinirole Hcl ) 0.5 mg HS 12/28/19 21:00 UNV Ondansetron HCl (Zofran) 4 mg PRN Q6HRS PRN 12/27/19 20:30 Oxycodone HCl (OxyCONTIN) 10 mg Q12HR 12/29/19 13:00 12/30/19 08:08 10 MG Pantoprazole Sodium (Protonix) 40 mg BIDAC 12/28/19 16:30 12/30/19 08:07 40 MG Piperacillin Sod/ Tazobactam Sod 2.25 gm/Sodium Chloride 50 ml @ 100 mls/hr Q6HRS 12/28/19 12:00 12/30/19 06:04 100 MLS/HR Ropinirole HCl (Requip) 0.5 mg HS 12/27/19 21:00 12/29/19 21:36 0.5 MG Sodium Chloride 1,000 ml @ 100 mls/hr Q10H 12/27/19 20:30 12/29/19 21:34 100 MLS/HR Temazepam (Restoril) 30 mg QHS 12/28/19 21:00 UNV Trazodone HCl (Desyrel) 50 mg QHS 12/28/19 21:00 12/29/19 21:35 50 MG Lab Laboratory Tests Test 12/29/19 13:22 12/29/19 16:35 12/29/19 16:55 12/29/19 20:56 Glucose (Fingerstick) 83 mg/dL (70-99) 73 mg/dL (70-99) 103 mg/dL (70-99) Urine Opiates Screen Pos (NEG) Urine Methadone Screen Neg (NEG) Urine Barbiturates Neg (NEG) Urine Phencyclidine Screen Neg (NEG) Urine Amphetamine/Methamphetamine Neg (NEG) Urine Benzodiazepines Screen Neg (NEG) Urine Cocaine Screen Neg (NEG) Urine Cannabinoids Screen Neg (NEG) Urine Ethyl Alcohol Neg (NEG) Test 12/30/19 06:15 12/30/19 07:16 12/30/19 09:56 12/30/19 11:43 White Blood Count 10.9 x10^3/uL (4.0-11.0) Red Blood Count 4.23 x10^6/uL (4.30-5.70) Hemoglobin 11.9 g/dL (13.0-17.5) Hematocrit 36.9 % (39.0-53.0) Mean Corpuscular Volume 87 fL (79-100) Mean Corpuscular Hemoglobin 28 pg (25-35) Mean Corpuscular Hemoglobin Concent 32 g/dL (31-37) Red Cell Distribution Width 14.8 % (11.5-14.5) Platelet Count 264 x10^3/uL (140-400) Neutrophils (%) (Auto) 80 % (31-73) Lymphocytes (%) (Auto) 8 % (24-48) Monocytes (%) (Auto) 7 % (0-9) Eosinophils (%) (Auto) 4 % (0-3) Basophils (%) (Auto) 1 % (0-3) Neutrophils # (Auto) 8.6 x10^3/uL (1.8-7.7) Lymphocytes # (Auto) 0.9 x10^3/uL (1.0-4.8) Monocytes # (Auto) 0.8 x10^3/uL (0.0-1.1) Eosinophils # (Auto) 0.4 x10^3/uL (0.0-0.7) Basophils # (Auto) 0.1 x10^3/uL (0.0-0.2) Sodium Level 141 mmol/L (136-145) Potassium Level 4.0 mmol/L (3.5-5.1) Chloride Level 108 mmol/L (98-107) Carbon Dioxide Level 20 mmol/L (21-32) Anion Gap 13 (6-14) Blood Urea Nitrogen 53 mg/dL (8-26) Creatinine 2.9 mg/dL (0.7-1.3) Estimated GFR (Cockcroft-Gault) 23.0 Glucose Level 50 mg/dL (70-99) Calcium Level 8.4 mg/dL (8.5-10.1) Phosphorus Level 3.9 mg/dL (2.6-4.7) Albumin 2.4 g/dL (3.4-5.0) Glucose (Fingerstick) 52 mg/dL (70-99) 158 mg/dL (70-99) 120 mg/dL (70-99) Results All relevant outside records, renal labs, imaging studies, telemetry/EKG's were reviewed. Justicifation of Admission Dx: Justifications for Admission: Justification of Admission Dx: N/A Acute Renal Failure: Serum Cr > 4mg/dL MARTIN ESTEVEZ MD Dec 30, 2019 11:54
[2019-12-30] MEDS: amLODIPine BESYLATE 10 MG TABLET PO SCH (12:52)
[2019-12-30] MEDS: hydrALAZINE 20 MG/ML VIAL. IVP PRN ×2 (13:04→20:02)
--- NOTE | 2019-12-30 14:08 | PDOC ---
CARDIO Progress Notes Date and Time Date of Service 12/30/2019 Time of Evaluation 1120 Subjective Subjective: No Chest Pain, No shortness of breath, No Palpitations Vitals Vitals Vital Signs Date Time Temp Pulse Resp B/P (MAP) Pulse Ox O2 Delivery O2 Flow Rate FiO2 12/30/19 13:04 78 198/108 12/30/19 12:58 18 98 Room Air 12/30/19 11:00 97.8 97.8 Weight Weight [ ] Input and Output Intake and Output Intake and Output 12/30/19 07:00 Intake Total 1800 ml Output Total 1200 ml Balance 600 ml Intake Oral 1800 ml Output Urine Total 1200 ml # Voids 3 Laboratory Labs Laboratory Tests Test 12/29/19 16:35 12/29/19 16:55 12/29/19 20:56 12/30/19 06:15 Glucose (Fingerstick) 73 mg/dL (70-99) 103 mg/dL (70-99) Urine Opiates Screen Pos (NEG) Urine Methadone Screen Neg (NEG) Urine Barbiturates Neg (NEG) Urine Phencyclidine Screen Neg (NEG) Urine Amphetamine/Methamphetamine Neg (NEG) Urine Benzodiazepines Screen Neg (NEG) Urine Cocaine Screen Neg (NEG) Urine Cannabinoids Screen Neg (NEG) Urine Ethyl Alcohol Neg (NEG) White Blood Count 10.9 x10^3/uL (4.0-11.0) Red Blood Count 4.23 x10^6/uL (4.30-5.70) Hemoglobin 11.9 g/dL (13.0-17.5) Hematocrit 36.9 % (39.0-53.0) Mean Corpuscular Volume 87 fL (79-100) Mean Corpuscular Hemoglobin 28 pg (25-35) Mean Corpuscular Hemoglobin Concent 32 g/dL (31-37) Red Cell Distribution Width 14.8 % (11.5-14.5) Platelet Count 264 x10^3/uL (140-400) Neutrophils (%) (Auto) 80 % (31-73) Lymphocytes (%) (Auto) 8 % (24-48) Monocytes (%) (Auto) 7 % (0-9) Eosinophils (%) (Auto) 4 % (0-3) Basophils (%) (Auto) 1 % (0-3) Neutrophils # (Auto) 8.6 x10^3/uL (1.8-7.7) Lymphocytes # (Auto) 0.9 x10^3/uL (1.0-4.8) Monocytes # (Auto) 0.8 x10^3/uL (0.0-1.1) Eosinophils # (Auto) 0.4 x10^3/uL (0.0-0.7) Basophils # (Auto) 0.1 x10^3/uL (0.0-0.2) Sodium Level 141 mmol/L (136-145) Potassium Level 4.0 mmol/L (3.5-5.1) Chloride Level 108 mmol/L (98-107) Carbon Dioxide Level 20 mmol/L (21-32) Anion Gap 13 (6-14) Blood Urea Nitrogen 53 mg/dL (8-26) Creatinine 2.9 mg/dL (0.7-1.3) Estimated GFR (Cockcroft-Gault) 23.0 Glucose Level 50 mg/dL (70-99) Calcium Level 8.4 mg/dL (8.5-10.1) Phosphorus Level 3.9 mg/dL (2.6-4.7) Albumin 2.4 g/dL (3.4-5.0) Test 12/30/19 07:16 12/30/19 09:56 12/30/19 11:43 Glucose (Fingerstick) 52 mg/dL (70-99) 158 mg/dL (70-99) 120 mg/dL (70-99) Physical Exam HEENT: Neck Supple W Full Motion Chest: Symmetric LUNGS: Clear to Auscultation Heart: RRR (SR) Abdomen: Soft N/T Extremities: No Edema, No Calf Tenderness Neurology: alert, oriented, follow commands Assessment Assessment 1. Diabetic foot ulcers/osteomyelitis to both feet: wound care team following. 2. Recent mechanical fall resulting to some of his foot wound. No syncope 3. Severe RLE PAD with claudication: noted per duplex. 2+ right DP and 1+ left DP 4. ICM: prior EF 30-35%. No NSVT, noted artifact. Maintaining SR. Compensated 5. CAD: past stents 6. HTN urgency 7. HLP 8. DM2: noted with hypoglycemic episodes 9. Severe LEATHA: temporary HD done a yr ago at [facility]. Nephrology following. Cr improving 10. Suspecting some noncompliance Recommendations 1. Obtain [facility] cardiac records if any arteriogram. Vascular surgery has been consulted. 2. Continue Antiplatelet therapy. Secondary prevention measures. Agree with aml odipine. Will change to coreg and and start hydralazine and imdur 3. Discussed compliance 4. Wound care per specialist. If wound fails to heal then will need arteriogram and likely HD. Avoid nephrotoxins at this time. 5. Avoid nephrotoxins. Caution with IVF Justicifation of Admission Dx: Justifications for Admission: Justification of Admission Dx: N/A Acute Renal Failure: Serum Cr > 4mg/dL GABRIEL CHOPRA APRN Dec 30, 2019 14:08
--- NOTE | 2019-12-30 14:34 | PDOC2 ---
CONSULT Date of Service Date of Service DATE: 12/30/19 TIME: 14:21 Reason for Consult Reason for Consult: Osteomyelitis Referring Physician Referring Physician: Farhat Identification/Chief Complaint Chief Complaint Foot ulcers Source Source: Patient History of Present Illness Reason for Visit: 53-year-old Male with diabetes who presents with diabetic foot ulcers. He has one on each first toe, the right has been present for 1 week and the left first toe ulcer has been present for 3 months. He reports his sugars are up and down at home. I do not see a recent A1C. His presented with LEATHA with creatinine at 4.1, now down to 2.9. Nephrology is on board, as well as infectious disease. He reports some mild associated pain to his toes and also his right heel, which hurts when he walks on it. He has had a previous left 2nd toe amputation done at [facility] for osteo. He denies any claudication sxs. He has had right ankle surgery for fracture with some hardware there. The patient denied any smoking, drinking alcohol or any drugs; however, his urine was tested positive for cocaine on previous admissions.He has hypertension. Family history Significant for hypertension and coronary artery disease. Past Medical History Cardiovascular: CAD, CHF, HTN, Hyperlipidemia, Other Pulmonary: Other CENTRAL NERVOUS SYSTEM: Other GI: GERD Psych: Depression Musculoskeletal: Osteoarthritis, Other Infectious disease: No pertinent hx Renal/: Chronic renal insuff Endocrine: Diabetes Past Surgical History Past Surgical History right ankle surgery Past Surgical History: Tonsillectomy, Other Family History Family History: Coronary Artery Disease Social History No ALCOHOL: none Drugs: Other (past cocaine use) Lives: with Family Current Medications Current Medications Current Medications Acetaminophen/ Hydrocodone Bitart (Lortab 7.5/325) 1 tab PRN Q6HRS PRN PO MODERATE PAIN 4-6 Last administered on 12/28/19at 01:36; Start 12/27/19 at 20:30; Stop 12/28/19 at 01:40; Status DC Temazepam (Restoril) 30 mg PRN QHS PRN PO INSOMNIA Last administered on 12/28/19at 21:19; Start 12/27/19 at 20:30 Ropinirole HCl (Requip) 0.5 mg HS PO Last administered on 12/29/19at 21:36; Start 12/27/19 at 21:00 Sodium Chloride 1,000 ml @ 100 mls/hr Q10H IV Last administered on 12/29/19at 21:34; Start 12/27/19 at 20:30; Stop 12/30/19 at 14:16; Status DC Acetaminophen (Tylenol) 650 mg PRN Q6HRS PRN PO MILD PAIN / TEMP > 100.3'F; Start 12/27/19 at 20:30 Ondansetron HCl (Zofran) 4 mg PRN Q6HRS PRN IVP NAUSEA/VOMITING 1ST CHOICE; Start 12/27/19 at 20:30 Insulin Human Lispro (HumaLOG) 0-5 UNITS TIDWMEALS SQ ; Start 12/28/19 at 08:00 Dextrose (Dextrose 50%-Water Syringe) 12.5 gm PRN Q15MIN PRN IV SEE COMMENTS; Start 12/27/19 at 20:30 Carvedilol (Coreg) 25 mg BIDWMEALS PO Last administered on 12/30/19at 08:08; Start 12/27/19 at 21:00; Stop 12/30/19 at 14:06; Status DC Acetaminophen/ Hydrocodone Bitart (Lortab 7.5/325) 1 tab PRN Q4HRS PRN PO MODERATE PAIN 4-6 Last administered on 12/30/19at 12:58; Start 12/28/19 at 01:45 Piperacillin Sod/ Tazobactam Sod 2.25 gm/Sodium Chloride 50 ml @ 100 mls/hr Q6HRS IV Last administered on 12/30/19at 12:50; Start 12/28/19 at 12:00 Linezolid/Dextrose 300 ml @ 300 mls/hr Q12HR IV Last administered on 12/30/19at 08:09; Start 12/28/19 at 21:00 Aspirin (Aspirin Chewable) 81 mg DAILY PO Last administered on 12/30/19at 08:06; Start 12/28/19 at 13:00 Atorvastatin Calcium (Lipitor) 40 mg QHS PO Last administered on 12/29/19at 21:35; Start 12/28/19 at 21:00 Clopidogrel Bisulfate (Plavix) 75 mg DAILYWBKFT PO Last administered on 12/30/19at 08:06; Start 12/28/19 at 13:00 Gabapentin (Neurontin) 300 mg BID PO Last administered on 12/30/19at 08:07; Start 12/28/19 at 13:00 Labetalol HCl (Trandate) 100 mg BID PO Last administered on 12/30/19at 08:06; Start 12/28/19 at 21:00; Stop 12/30/19 at 14:03; Status DC Linagliptin (Tradjenta) 5 mg DAILY PO Last administered on 12/28/19at 12:36; Start 12/28/19 at 13:00; Stop 12/29/19 at 12:27; Status DC Temazepam (Restoril) 30 mg QHS PO ; Start 12/28/19 at 21:00; Status UNV Trazodone HCl (Desyrel) 50 mg QHS PO Last administered on 12/29/19at 21:35; Sta rt 12/28/19 at 21:00 Non-Formulary Medication (Carvedilol (Coreg)) 25 mg BIDWMEALS PO ; Start 12/28/19 at 17:00; Status UNV Glimepiride (Amaryl) 4 mg DAILY PO Last administered on 12/28/19at 12:37; Start 12/28/19 at 13:00; Stop 12/29/19 at 12:27; Status DC Pantoprazole Sodium (Protonix) 40 mg BIDAC PO Last administered on 12/30/19at 08:07; Start 12/28/19 at 16:30 Non-Formulary Medication (Ropinirole Hcl ) 0.5 mg HS PO ; Start 12/28/19 at 21:00; Status UNV Hydralazine HCl (Apresoline Inj) 10 mg PRN Q4HRS PRN IVP ELEVATED BP, SEE COMMENTS Last administered on 12/30/19at 13:04; Start 12/28/19 at 17:30 Glimepiride (Amaryl) 2 mg DAILY PO ; Start 12/30/19 at 09:00; Stop 12/29/19 at 12:42; Status DC Oxycodone HCl (OxyCONTIN) 10 mg Q12HR PO Last administered on 12/30/19at 08:08; Start 12/29/19 at 13:00 Multivitamins (Thera M Plus) 1 tab DAILY PO Last administered on 12/30/19at 08:07; Start 12/29/19 at 14:00 Ascorbic Acid (Vitamin C) 500 mg DAILY PO Last administered on 12/30/19at 08:05; Start 12/29/19 at 14:00 Lactobacillus Rhamnosus (Culturelle) 1 cap BID PO Last administered on 12/30/19at 08:06; Start 12/29/19 at 21:00 Amlodipine Besylate (Norvasc) 10 mg DAILY PO Last administered on 12/30/19at 12:52; Start 12/30/19 at 10:15 Carvedilol (Coreg) 12.5 mg BIDWMEALS PO ; Start 12/30/19 at 17:00 Hydralazine HCl (Apresoline) 25 mg TID PO ; Start 12/30/19 at 14:00 Isosorbide Mononitrate (Imdur) 30 mg DAILY PO ; Start 12/31/19 at 09:00 Active Scripts Active Atorvastatin Calcium 40 Mg Tablet 40 Mg PO QHS 30 Days Plavix (Clopidogrel Bisulfate) 75 Mg Tablet 75 Mg PO DAILYWBKFT Reported Tradjenta (Linagliptin) 5 Mg Tablet 5 Mg PO DAILY Amaryl (Glimepiride) 4 Mg Tablet 1 Tab PO BID Trazodone Hcl 50 Mg Tablet 1 Tab PO QHS Gabapentin (Gabapentin) 300 Mg Capsule 300 Mg PO BID Children's Aspirin (Aspirin) 81 Mg Tab.chew 1 Tab PO DAILY 30 Days Coreg (Carvedilol) 25 Mg Tablet 25 Mg PO BIDWMEALS Ropinirole Hcl 0.5 Mg Tablet 0.5 Mg PO HS Labetalol Hcl 100 Mg Tablet 1 Tab PO BID Protonix (Pantoprazole Sodium) 20 Mg Tablet.dr 2 Tab PO BID Temazepam 30 Mg Capsule 1 Cap PO QHS Allergies Allergies: Coded Allergies: No Known Drug Allergies (Unverified , 07/22/14) ROS General: No: Chills, Night Sweats, Fatigue PSYCHOLOGICAL ROS: No: Anxiety Hematological and Lymphatic: No: Bleeding Problems, Blood Clots, Brusing Respiratory: No: Cough, Shortness of breath, SOB with excertion Cardiovascular: No Chest Pain, No Palpitations, No Edema Gastrointestinal: No Nausea, No Vomiting, No Abdominal Pain, No Diarrhea Musculoskeletal: Yes Gait Disturbance, Yes Pain In: (both first toes and right heel); No Joint Pain, No Joint Swelling Skin: Yes Dry Skin, Yes Skin Lesion Changes Physical Exam Physical Exam Vital signs: Hypertensive General: Alert, Oriented X3, Cooperative HEENT: Atraumatic Lungs: Clear to auscultation, Normal air movement Heart: Regular rate Abdomen: Soft, No tenderness Extremities: No cyanosis, No edema, Normal pulses (Palpable pedal pulses, could not appreciate popliteal pulses) Skin: Other (Left first toe with boggy ulcer to tip, brown tissue to wound bed, penetrates deep, redness to entire toe, does not extend. Cannot extract any fluid. Right first toe with superficial clean pink ulcer to tip, no fluid, not deep. Right heel with some redness medially and laterally, but no areas of skin breakdown. ) Vitals VITALS Vital Signs Date Time Temp Pulse Resp B/P (MAP) Pulse Ox O2 Delivery O2 Flow Rate FiO2 12/30/19 13:04 78 198/108 12/30/19 12:58 18 98 Room Air 12/30/19 11:00 97.8 97.8 Labs Labs Laboratory Tests Test 12/28/19 16:35 12/28/19 20:19 12/29/19 04:00 12/29/19 06:52 Glucose (Fingerstick) 98 mg/dL (70-99) 65 mg/dL (70-99) 58 mg/dL (70-99) Sodium Level 143 mmol/L (136-145) Potassium Level 4.0 mmol/L (3.5-5.1) Chloride Level 109 mmol/L (98-107) Carbon Dioxide Level 21 mmol/L (21-32) Anion Gap 13 (6-14) Blood Urea Nitrogen 59 mg/dL (8-26) Creatinine 3.7 mg/dL (0.7-1.3) Estimated GFR (Cockcroft-Gault) 17.3 Glucose Level 45 mg/dL (70-99) Calcium Level 7.9 mg/dL (8.5-10.1) Magnesium Level 2.2 mg/dL (1.8-2.4) Triglycerides Level 117 mg/dL (0-150) Cholesterol Level 108 mg/dL (0-200) LDL Cholesterol, Calculated 57 mg/dL (0-100) VLDL Cholesterol, Calculated 23 mg/dL (0-40) Non-HDL Cholesterol Calculated 80 mg/dL (0-129) HDL Cholesterol 28 mg/dL (40-60) Cholesterol/HDL Ratio 3.9 Thyroid Stimulating Hormone (TSH) 0.913 uIU/mL (0.358-3.74) Test 12/29/19 07:06 12/29/19 08:08 12/29/19 11:05 12/29/19 13:22 Glucose (Fingerstick) 65 mg/dL (70-99) 72 mg/dL (70-99) 56 mg/dL (70-99) 83 mg/dL (70-99) Test 12/29/19 16:35 12/29/19 16:55 12/29/19 20:56 12/30/19 06:15 Glucose (Fingerstick) 73 mg/dL (70-99) 103 mg/dL (70-99) Urine Opiates Screen Pos (NEG) Urine Methadone Screen Neg (NEG) Urine Barbiturates Neg (NEG) Urine Phencyclidine Screen Neg (NEG) Urine Amphetamine/Methamphetamine Neg (NEG) Urine Benzodiazepines Screen Neg (NEG) Urine Cocaine Screen Neg (NEG) Urine Cannabinoids Screen Neg (NEG) Urine Ethyl Alcohol Neg (NEG) White Blood Count 10.9 x10^3/uL (4.0-11.0) Red Blood Count 4.23 x10^6/uL (4.30-5.70) Hemoglobin 11.9 g/dL (13.0-17.5) Hematocrit 36.9 % (39.0-53.0) Mean Corpuscular Volume 87 fL (79-100) Mean Corpuscular Hemoglobin 28 pg (25-35) Mean Corpuscular Hemoglobin Concent 32 g/dL (31-37) Red Cell Distribution Width 14.8 % (11.5-14.5) Platelet Count 264 x10^3/uL (140-400) Neutrophils (%) (Auto) 80 % (31-73) Lymphocytes (%) (Auto) 8 % (24-48) Monocytes (%) (Auto) 7 % (0-9) Eosinophils (%) (Auto) 4 % (0-3) Basophils (%) (Auto) 1 % (0-3) Neutrophils # (Auto) 8.6 x10^3/uL (1.8-7.7) Lymphocytes # (Auto) 0.9 x10^3/uL (1.0-4.8) Monocytes # (Auto) 0.8 x10^3/uL (0.0-1.1) Eosinophils # (Auto) 0.4 x10^3/uL (0.0-0.7) Basophils # (Auto) 0.1 x10^3/uL (0.0-0.2) Sodium Level 141 mmol/L (136-145) Potassium Level 4.0 mmol/L (3.5-5.1) Chloride Level 108 mmol/L (98-107) Carbon Dioxide Level 20 mmol/L (21-32) Anion Gap 13 (6-14) Blood Urea Nitrogen 53 mg/dL (8-26) Creatinine 2.9 mg/dL (0.7-1.3) Estimated GFR (Cockcroft-Gault) 23.0 Glucose Level 50 mg/dL (70-99) Calcium Level 8.4 mg/dL (8.5-10.1) Phosphorus Level 3.9 mg/dL (2.6-4.7) Albumin 2.4 g/dL (3.4-5.0) Test 12/30/19 07:16 12/30/19 09:56 12/30/19 11:43 Glucose (Fingerstick) 52 mg/dL (70-99) 158 mg/dL (70-99) 120 mg/dL (70-99) Laboratory Tests Test 12/29/19 16:35 12/29/19 16:55 12/29/19 20:56 12/30/19 06:15 Glucose (Fingerstick) 73 mg/dL (70-99) 103 mg/dL (70-99) Urine Opiates Screen Pos (NEG) Urine Methadone Screen Neg (NEG) Urine Barbiturates Neg (NEG) Urine Phencyclidine Screen Neg (NEG) Urine Amphetamine/Methamphetamine Neg (NEG) Urine Benzodiazepines Screen Neg (NEG) Urine Cocaine Screen Neg (NEG) Urine Cannabinoids Screen Neg (NEG) Urine Ethyl Alcohol Neg (NEG) White Blood Count 10.9 x10^3/uL (4.0-11.0) Red Blood Count 4.23 x10^6/uL (4.30-5.70) Hemoglobin 11.9 g/dL (13.0-17.5) Hematocrit 36.9 % (39.0-53.0) Mean Corpuscular Volume 87 fL (79-100) Mean Corpuscular Hemoglobin 28 pg (25-35) Mean Corpuscular Hemoglobin Concent 32 g/dL (31-37) Red Cell Distribution Width 14.8 % (11.5-14.5) Platelet Count 264 x10^3/uL (140-400) Neutrophils (%) (Auto) 80 % (31-73) Lymphocytes (%) (Auto) 8 % (24-48) Monocytes (%) (Auto) 7 % (0-9) Eosinophils (%) (Auto) 4 % (0-3) Basophils (%) (Auto) 1 % (0-3) Neutrophils # (Auto) 8.6 x10^3/uL (1.8-7.7) Lymphocytes # (Auto) 0.9 x10^3/uL (1.0-4.8) Monocytes # (Auto) 0.8 x10^3/uL (0.0-1.1) Eosinophils # (Auto) 0.4 x10^3/uL (0.0-0.7) Basophils # (Auto) 0.1 x10^3/uL (0.0-0.2) Sodium Level 141 mmol/L (136-145) Potassium Level 4.0 mmol/L (3.5-5.1) Chloride Level 108 mmol/L (98-107) Carbon Dioxide Level 20 mmol/L (21-32) Anion Gap 13 (6-14) Blood Urea Nitrogen 53 mg/dL (8-26) Creatinine 2.9 mg/dL (0.7-1.3) Estimated GFR (Cockcroft-Gault) 23.0 Glucose Level 50 mg/dL (70-99) Calcium Level 8.4 mg/dL (8.5-10.1) Phosphorus Level 3.9 mg/dL (2.6-4.7) Albumin 2.4 g/dL (3.4-5.0) Test 12/30/19 07:16 12/30/19 09:56 12/30/19 11:43 Glucose (Fingerstick) 52 mg/dL (70-99) 158 mg/dL (70-99) 120 mg/dL (70-99) Assessment/Plan Assessment/Plan Impression: DFU with osteomyelitis Mild PAD LEATHA DM HTN Plan: Pt will need left first toe amputation. The bone scan suggests osteo of bilateral first toes, however I am not convinced that the right toe has osteo by exam, wound is superficial and has not been present for very long per report. He has a relatively normal arterial doppler (only mild disease to bilateral PT's) with palpable pedal pulses. His ambulation is mechanically limited, so difficult to evaluate if claudication is present. I do not think further vascular workup is indicated at this time, especially in the setting of his LEATHA. He is on asa and plavix. I discussed options with patient who elected to proceed with recommended left first toe amp, this will likely be able to be closed based on presentation, however he understands the possibility of leaving it open if infection worse and wound vac if needed. I discussed risks/benefits and details of procedure with expected post op course. He will need continued to abx per ID, good DM management and offloading to optimize wound healing. He exhibited understanding and agreed to proceed. Discussed with Dr. Cheema. Scheduled for surgery tomorrow afternoon. NPO after midnight. His HTN seems uncontrolled since admission, recommend better BP control. ATTILA PANDYA Dec 30, 2019 14:34
[2019-12-30] MEDS: hydrALAZINE 25 MG TABLET PO SCH ×2 (16:40→23:08)
[2019-12-30] MEDS: rOPINIRole 0.25 MG TABLET. PO SCH (20:54)
[2019-12-30] MEDS: traZODone 50 MG TABLET. PO SCH (20:54)
[2019-12-30] MEDS: ATORVASTATIN CALCIUM 40 MG TABLET. PO SCH (20:54)
[2019-12-30] MEDS: TEMAZEPAM 15 MG CAPSULE PO PRN (23:08)
[2019-12-31] VITALS (12 sets, daily range): BP systolic 152–190; BP diastolic 97–106
[2019-12-31] MEDS: hydrALAZINE 20 MG/ML VIAL. IVP PRN ×3 (01:56→21:19)
[2019-12-31] MEDS: HYDROcodone/APAP 7.5/325MG 1 TAB TABLET PO PRN ×2 (02:02→06:26)
[2019-12-31 05:19] LABS: CALCIUM 8.7 mg/dL (8.5-10.1); CREATININE 3.2 mg/dL (0.7-1.3); GFR 20.5; POTASSIUM 4.1 mmol/L (3.5-5.1)
[2019-12-31] MEDS: PIPERACILLIN/TAZOBACTAM 2.25 GM in IV NORMAL SALINE 50ML 50 ML IV SCH ×4 (06:27→23:34)
[2019-12-31] MEDS ORDERED: IV RINGERS,LACTATED 1000ML 1,000 ML IV SCH (07:29)
[2019-12-31] MEDS ORDERED: fentaNYL PF VIAL 100 MCG/2 ML VIAL IV PRN ×2 (07:30)
[2019-12-31] MEDS ORDERED: MORPHINE SULFATE 2 MG/ML VIAL. IV PRN (07:30)
[2019-12-31] MEDS ORDERED: ONDANSETRON PF 4 MG/2 ML VIAL. IV PRN (07:30)
[2019-12-31] MEDS ORDERED: PROCHLORPERAZINE 10 MG/2 ML VIAL. IV PRN (07:30)
[2019-12-31] MEDS ORDERED: LIDOCAINE 1% PF 2 ML VIAL. ID PRN (07:30)
[2019-12-31] MEDS ORDERED: HYDROmorphone 2 MG/ML VIAL IV PRN (07:30)
[2019-12-31] MEDS: INSULIN LISPRO 300 UNITS/3 ML VIAL. SQ SCH ×3 (08:00→18:35)
[2019-12-31] MEDS: amLODIPine BESYLATE 10 MG TABLET PO SCH (08:13)
[2019-12-31] MEDS: GABAPENTIN 300 MG CAPSULE. PO SCH ×2 (08:13→21:17)
[2019-12-31] MEDS: ASPIRIN CHEWABLE 81 MG TABLET. PO SCH (08:13)
[2019-12-31] MEDS: hydrALAZINE 25 MG TABLET PO SCH ×3 (08:13→21:18)
[2019-12-31] MEDS: CLOPIDOGREL BISULFATE 75 MG TABLET PO SCH (08:14)
[2019-12-31] MEDS: CARVEDILOL 12.5 MG TABLET. PO SCH ×2 (08:15→18:05)
[2019-12-31] MEDS: ISOSORBIDE MONONITRATE ER 30 MG TAB.ER.24H PO SCH (08:21)
[2019-12-31] MEDS: oxyCODONE ER 10 MG TAB.ER.12H PO SCH ×2 (08:23→21:17)
[2019-12-31] MEDS: MULTIVITAMIN with MINERAL TABLET. PO SCH (09:00)
[2019-12-31] MEDS: ASCORBIC ACID 500 MG TABLET PO SCH (09:00)
[2019-12-31] MEDS: LACTOBACILLUS RHAMNOSUS GG 1 CAPSULE. PO SCH ×2 (09:00→21:17)
--- NOTE | 2019-12-31 09:40 | PN ---
DATE: 12/31/2019 SUBJECTIVE: The patient is sitting slightly propped up in bed, in no apparent distress, continued to complain of pain. He was seen by the vascular surgeon and the plan was to undergo left first toe amputation. He is also scheduled for an MRI of his right foot given the finding on the bone scan. His blood pressure continued to be extremely high and adjustment was made for his antihypertensive medication. IV fluids were discontinued. OBJECTIVE: When I saw him today, he looked well and was clearly in no apparent respiratory distress, pale, but no jaundice, cyanosis, or thyromegaly. No jugular venous distension. No limb edema. The rest of his clinical exam is stable. LABORATORY DATA: His COVID-19 by rapid test was negative. His intake over the last 24 hours was 1800, output was 1200. ASSESSMENT: 1. Infected right foot and chronic wound of the left big toe with cellulitis detected on the bone scan. He is now on IV Zyvox and Zosyn. He is scheduled for left big toe amputation. 2. Coronary artery disease, status post percutaneous coronary intervention with stent deployment to the left anterior descending and right coronary arteries. 3. Chronic congestive heart failure, ischemic cardiomyopathy and ejection fraction on his most recent echocardiogram of 35%. 4. Acute on chronic kidney injury. His creatinine has improved down to 2.9, but it is now up to 3.2. 5. Hypertension. 6. Hyperlipidemia. 7. Type 2 diabetes mellitus with recurrent episodes of hypoglycemia for which I discontinued all his oral hypoglycemic agents and his blood sugar is well within normal range. PLAN: He is n.p.o. now as he is scheduled for amputation of the left big toe. He is also scheduled for an MRI of the right foot. Meanwhile, continue with oral pain medications. Continue to monitor his blood sugar. Continue to adjust his antihypertensive medication to achieve a better control of his high blood pressure. SAMM PRASAD MD DR: OH/jose JOB#: [id number] / [id number]
--- NOTE | 2019-12-31 10:09 | PDOC ---
Infectious Disease Note Subjective Subjective pt is feeling good ROS ROS no n/v/d/sob Vital Sign Vital Signs Vital Signs Date Time Temp Pulse Resp B/P (MAP) Pulse Ox O2 Delivery O2 Flow Rate FiO2 12/31/19 08:23 20 97 Room Air 12/31/19 08:21 110 182/106 12/31/19 07:00 98.0 98.0 Physical Exam PHYSICAL EXAM GENERAL: Alert and oriented gentleman, not in distress. VITAL SIGNS: Stable. Afebrile. HEENT: NAD. NECK: Supple. No JVP, no lymphadenopathy. LUNGS: Clear. HEART: S1, S2 regular. ABDOMEN: Benign. EXTREMITIES: The patient does have right big toe ulcer on the distal end. There is some minor breakdown on the dorsal surface of the foot and there is red patch below the ankle on the right foot. Clinically, there is no deep wound or chronic looking wound, enough to be able to say osteomyelitis on the right big toe. Left big toe does have a chronic wound, which looks like he probably has osteomyelitis there. The wound is on the plantar and medial surface of the big toe. SKIN: Rest of skin examination unremarkable. NEUROLOGIC: The patient is alert, awake and appropriate. No focal neurologic deficit. Labs Lab Laboratory Tests Test 12/30/19 11:43 12/30/19 17:10 12/30/19 17:19 12/31/19 01:53 Glucose (Fingerstick) 120 mg/dL (70-99) 117 mg/dL (70-99) 119 mg/dL (70-99) SARS-CoV-2 Antigen (Rapid) Negative (NEGATIVE) Test 12/31/19 04:45 12/31/19 07:48 Sodium Level 141 mmol/L (136-145) Potassium Level 4.1 mmol/L (3.5-5.1) Chloride Level 108 mmol/L (98-107) Carbon Dioxide Level 19 mmol/L (21-32) Anion Gap 14 (6-14) Blood Urea Nitrogen 45 mg/dL (8-26) Creatinine 3.2 mg/dL (0.7-1.3) Estimated GFR (Cockcroft-Gault) 20.5 Glucose Level 98 mg/dL (70-99) Calcium Level 8.7 mg/dL (8.5-10.1) Glucose (Fingerstick) 94 mg/dL (70-99) Objective Assessment IMPRESSION: 1. Left big toe chronic ulcer with bone scan positive for osteomyelitis. 2. Right big toe ulcer. Bone scan is positive for osteomyelitis, but there is no clinical evidence of chronic or deep wound on to the right big toe. 3. Right foot cellulitis. 4. Peripheral arterial disease. 5. Coronary artery disease. 6. Diabetes. 7. Hypertension. 8. Noncompliance. 9. Renal insufficiency. Plan Plan of Care cont antibiotics surgery is planned for toe amputation DULCE MARIA SRIVASTAVA MD Dec 31, 2019 10:09
--- NOTE | 2019-12-31 10:49 | NUR ---
SS following up with discharge planning. SS reviewed pt chart and discussed with pt RN. Pt is currently on room air. Pt on IV Zosyn and IV Zyvox. Pt having MRI and scheduled for surgery today. SS will continue to follow for discharge planning.
[2019-12-31] MEDS ORDERED: fentaNYL PF VIAL 100 MCG/2 ML VIAL ONE (13:58)
[2019-12-31] MEDS ORDERED: ONDANSETRON PF 4 MG/2 ML VIAL. ONE ×2 (14:04→14:05)
[2019-12-31] MEDS ORDERED: PROPOFOL 10 MG/ML (20ML) VIAL. IV ONE (14:04)
[2019-12-31] MEDS ORDERED: LIDOCAINE 2% PF 5 ML VIAL. ONE (14:04)
[2019-12-31] MEDS ORDERED: SEVOFLURANE 31 TO 60 MINUTES. IH ONE (14:06)
[2019-12-31] MEDS ORDERED: LIDOCAINE 1% Multi-Dose 20 ML VIAL. ONE (14:13)
--- NOTE | 2019-12-31 14:22 | PDOC ---
DATE OF SERVICE DATE: 12/31/19 TIME: 14:21 SUBJECTIVE ROS No complaints, feeling good OBJECTIVE Vital Signs Vital Signs Date Time Temp Pulse Resp B/P (MAP) Pulse Ox O2 Delivery O2 Flow Rate FiO2 12/31/19 13:30 97.8 89 20 188/100 99 Room Air 97.8 I & 0 Intake and Output 12/31/19 07:00 Intake Total 2730 ml Balance 2730 ml Intake Oral 2430 ml IV Total 300 ml # Voids 2 PHYSICAL EXAM Physical Exam GENERAL: NAD HEEN: Om moist , On RA NECK: Supple. HEART:ALEJANDRA + LUNGS Decreased at bases, Non labored ABDOMEN: soft, nontender. NEUROLOGIC: grossly normal EXTREMITIES: No LE edema, he has chronic wounds in the left big toe, status post partial amputation of the left second toe. Wounds in the right big toe with surrounding erythema and erythema on the medial aspect of left foot According to him an abscess in his left heel that he drained himself and large amount of pus came out. 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 scheduled for amputation this afternoon Right big toe ulcer. Bone scan is positive for osteomyelitis, but there is no clinical evidence of chronic or deep wound on to the right big toe. Chronic pain syndrome chronic opioid and benzo use Cardiomyopathy: EF 30-35% in 2019 HTN: BP high suspect due to Chronic Non compliance DM2 : per PCP CAD: PCI/BMS to LAD/RCA, clinically stable. Anemia- Hgb stable, No indication for CELENA Chronic Noncompliance with meds, appointments COMMENT/RELEVANT DATA Meds Current Medications Medications (Trade) Dose Ordered Sig/Jerri Start Time Stop Time Status Last Admin Dose Admin Acetaminophen (Tylenol) 650 mg PRN Q6HRS PRN 12/27/19 20:30 Acetaminophen/ Hydrocodone Bitart (Lortab 7.5/325) 1 tab PRN Q4HRS PRN 12/28/19 01:45 12/31/19 06:26 1 TAB Amlodipine Besylate (Norvasc) 10 mg DAILY 12/30/19 10:15 12/31/19 08:13 10 MG Ascorbic Acid (Vitamin C) 500 mg DAILY 12/29/19 14:00 12/30/19 08:05 500 MG Aspirin (Aspirin Chewable) 81 mg DAILY 12/28/19 13:00 12/31/19 08:13 81 MG Atorvastatin Calcium (Lipitor) 40 mg QHS 12/28/19 21:00 12/30/19 20:54 40 MG Carvedilol (Coreg) 12.5 mg BIDWMEALS 12/30/19 17:00 12/31/19 08:15 12.5 MG Cefazolin Sodium 1 gm/Sodium Chloride 500 ml @ 500 mls/hr 1X ONCE 12/31/19 06:00 12/31/19 06:59 DC Clopidogrel Bisulfate (Plavix) 75 mg DAILYWBKFT 12/28/19 13:00 12/31/19 08:14 75 MG Dextrose (Dextrose 50%-Water Syringe) 12.5 gm PRN Q15MIN PRN 12/27/19 20:30 Fentanyl Citrate (Fentanyl 2ml Vial) 100 mcg STK-MED ONCE 12/31/19 13:58 12/31/19 13:58 DC Gabapentin (Neurontin) 300 mg BID 12/28/19 13:00 12/31/19 08:13 300 MG Glimepiride (Amaryl) 2 mg DAILY 12/30/19 09:00 12/29/19 12:42 DC Hydralazine HCl (Apresoline Inj) 10 mg PRN Q4HRS PRN 12/28/19 17:30 12/31/19 06:28 10 MG Hydralazine HCl (Apresoline) 25 mg TID 12/30/19 14:00 12/31/19 08:13 25 MG Hydromorphone HCl (Dilaudid) 0.5 mg PRN Q10MIN PRN 12/31/19 07:30 01/01/20 07:29 Insulin Human Lispro (HumaLOG) 0-5 UNITS TIDWMEALS 12/28/19 08:00 Isosorbide Mononitrate (Imdur) 30 mg DAILY 12/31/19 09:00 12/31/19 08:21 30 MG Labetalol HCl (Trandate) 100 mg BID 12/28/19 21:00 12/30/19 14:03 DC 12/30/19 08:06 100 MG Lactobacillus Rhamnosus (Culturelle) 1 cap BID 12/29/19 21:00 12/30/19 20:54 1 CAP Lidocaine HCl (Lidocaine 1% 20ml Vial) 20 ml STK-MED ONCE 12/31/19 14:13 12/31/19 14:14 DC Lidocaine HCl (Lidocaine Pf 2% Vial) 5 ml STK-MED ONCE 12/31/19 14:04 12/31/19 14:04 DC Lidocaine HCl (Xylocaine-Mpf 1% 2ml Vial) 2 ml PRN 1X PRN 12/31/19 07:30 01/01/20 07:29 Linagliptin (Tradjenta) 5 mg DAILY 12/28/19 13:00 12/29/19 12:27 DC 12/28/19 12:36 5 MG Linezolid/Dextrose 300 ml @ 300 mls/hr Q12HR 12/28/19 21:00 12/31/19 08:26 300 MLS/HR Morphine Sulfate (Morphine Sulfate) 1 mg PRN Q10MIN PRN 12/31/19 07:30 01/01/20 07:29 Multivitamins (Thera M Plus) 1 tab DAILY 12/29/19 14:00 12/30/19 08:07 1 TAB Non-Formulary Medication (Carvedilol (Coreg)) 25 mg BIDWMEALS 12/28/19 17:00 UNV Non-Formulary Medication (Ropinirole Hcl ) 0.5 mg HS 12/28/19 21:00 UNV Ondansetron HCl (Zofran) 4 mg STK-MED ONCE 12/31/19 14:05 12/31/19 14:06 DC Oxycodone HCl (OxyCONTIN) 10 mg Q12HR 12/29/19 13:00 12/31/19 08:23 10 MG Pantoprazole Sodium (Protonix) 40 mg BIDAC 12/28/19 16:30 12/30/19 18:58 40 MG Piperacillin Sod/ Tazobactam Sod 2.25 gm/Sodium Chloride 50 ml @ 100 mls/hr Q6HRS 12/28/19 12:00 12/31/19 12:32 100 MLS/HR Prochlorperazine Edisylate (Compazine) 5 mg PACU PRN PRN 12/31/19 07:30 01/01/20 07:29 Propofol (Diprivan) 200 mg STK-MED ONCE 12/31/19 14:04 12/31/19 14:04 DC Ringer's Solution 1,000 ml @ 30 mls/hr Q24H 12/31/19 07:29 12/31/19 19:28 Ropinirole HCl (Requip) 0.5 mg HS 12/27/19 21:00 12/30/19 20:54 0.5 MG Sevoflurane (Ultane) 30 ml STK-MED ONCE 12/31/19 14:06 12/31/19 14:06 DC Sodium Chloride 1,000 ml @ 100 mls/hr Q10H 12/27/19 20:30 12/30/19 14:16 DC 12/29/19 21:34 100 MLS/HR Temazepam (Restoril) 30 mg QHS 12/28/19 21:00 UNV Trazodone HCl (Desyrel) 50 mg QHS 12/28/19 21:00 12/30/19 20:54 50 MG Lab Laboratory Tests Test 12/30/19 17:10 12/30/19 17:19 12/31/19 01:53 12/31/19 04:45 SARS-CoV-2 Antigen (Rapid) Negative (NEGATIVE) Glucose (Fingerstick) 117 mg/dL (70-99) 119 mg/dL (70-99) Sodium Level 141 mmol/L (136-145) Potassium Level 4.1 mmol/L (3.5-5.1) Chloride Level 108 mmol/L (98-107) Carbon Dioxide Level 19 mmol/L (21-32) Anion Gap 14 (6-14) Blood Urea Nitrogen 45 mg/dL (8-26) Creatinine 3.2 mg/dL (0.7-1.3) Estimated GFR (Cockcroft-Gault) 20.5 Glucose Level 98 mg/dL (70-99) Calcium Level 8.7 mg/dL (8.5-10.1) Test 12/31/19 07:48 12/31/19 11:16 Glucose (Fingerstick) 94 mg/dL (70-99) 128 mg/dL (70-99) Results All relevant outside records, renal labs, imaging studies, telemetry/EKG's were reviewed. Justicifation of Admission Dx: Justifications for Admission: Justification of Admission Dx: N/A Acute Renal Failure: Serum Cr > 4mg/dL MARTIN ESTEVEZ MD Dec 31, 2019 14:22
[2019-12-31] MEDS ORDERED: PHENYLEPHRINE in 0.9% NACL PF 1 MG/10 ML SYRINGE. IV ONE (14:40)
--- NOTE | 2019-12-31 14:48 | OP ---
DATE OF SURGERY: 12/31/2019 SURGEON: Janeth Cheema MD RUG FRAME MOUNTER: Vidya Rosa. PREOPERATIVE DIAGNOSIS: 1. Left first toe chronic open wound with exposed bone, necrotic tissue and osteomyelitis. 2. Right first toe tip open wound with superficial necrotic tissue and no exposed bone. POSTOPERATIVE DIAGNOSES: 1. Left first toe chronic open wound with exposed bone, necrotic tissue and osteomyelitis. 2. Right first toe tip open wound with superficial necrotic tissue and no exposed bone. OPERATION PERFORMED: 1. Left first toe partial amputation done in a closed fashion. 2. Right first toe sharp excisional debridement removing necrotic skin and subcutaneous tissue, measurements after debridement were approximately 1.5 cm in length x 1.5 cm in width x superficial in depth. ANESTHESIA USED: General anesthesia. INDICATIONS: The patient is a 53-year-old male with a history of diabetes mellitus who has had a chronic open wound on his left first toe, which has progressed to exposure of bone and necrotic tissue. He had a bone scan, which shows osteomyelitis. He has had a right first toe tip wound for the past approximately week that is much more superficial. There is some necrotic skin and subcutaneous tissue, but there is no exposure of the bone. I recommended left first toe amputation and right first toe debridement. BLOOD LOSS: 5 mL. DETAILS OF THE OPERATION: The patient was brought to the operating room and placed on table in supine position. He received general anesthesia monitored throughout the case by the anesthesiologist. His bilateral feet and ankles were prepped and draped by normal sterile fashion. We began with left toe amputation. We made a fishmouth type incision just proximal to the open wound, which was at the mid toe level. The incision was through the proximal toe. We dissected down through the tissues down to the bone and transected the bone with a bone cutter and removed the toe. We brought the bone back within the wound with a rongeur. We did not have to expose the metatarsal head. We removed all tendons from the wound. There was good bleeding, which was controlled with electrocautery. There were no signs of infection within the wound. We did culture of the toe wound. We irrigated with copious amounts of antibiotic solution. We closed the incision with running nylon suture. Xeroform and a sterile dressing was placed. At the right first toe tip, I used a curette and sharply debrided necrotic skin and subcutaneous tissue throughout the wound bed. The tissue was healthy underneath this. There was no exposure of bone. We placed Aquacel dressing to this toe and to a wound that he had on the right dorsal foot, which was clean after we washed and the scab was removed. We wrapped with Kerlix wrap. He tolerated the surgery well with no immediate complications. Vidya Rosa was scrubbed throughout the entire length of the case for the toe amputation and debridement. JANETH CHEEMA MD DR: DEBI/jose JOB#: [id number] / [id number]
--- NOTE | 2019-12-31 15:09 | PDOC ---
BRIEF OPERATIVE NOTE Date: Dec 31, 2019 Pre-Op Diagnosis Left first toe osteomyelitis Right first toe ulcer HTN DM Post-Op Diagnosis Same Procedure Performed 1. Left first toe partial amputation, closed 2. Right first toe superficial ulcer debridement Surgeon Janeth Cheema MD Customs Examiner LEEANN Francois Anesthesiologist Tyra Anesthesia Type: General Blood Loss 5mL Specimens Obtained Left toe culture sent Complications None Operative Note See dictated op note. ATTILA PANDYA Dec 31, 2019 15:09
--- NOTE | 2019-12-31 15:40 | NUR ---
Patient returned to unit alert and oriented. Call light and phone within easy reach. Patient also has his cellphone in hand. Dressings on bilateral feet dry and intact without shadowing noted, which are elevated on pillows. Food tray ordered for patient. Telemetry placed back on patient. Daughter Kasey has called to check on patient, pt returned her call. No c/o pain at this time. No IVF infusing at this time.
[2019-12-31] MEDS: PANTOPRAZOLE 40 MG TABLET.DR. PO SCH (18:04)
[2019-12-31] MEDS: MORPHINE SULFATE 2 MG/ML VIAL. IV PRN ×2 (18:23→21:16)
[2019-12-31] MEDS: rOPINIRole 0.25 MG TABLET. PO SCH (21:17)
[2019-12-31] MEDS: traZODone 50 MG TABLET. PO SCH (21:17)
[2019-12-31] MEDS: ATORVASTATIN CALCIUM 40 MG TABLET. PO SCH (21:18)
[2019-12-31] MEDS: TEMAZEPAM 15 MG CAPSULE PO PRN (21:32)
[2020-01-01 03:00] VITALS: BP 187/103
[2020-01-01] MEDS: MORPHINE SULFATE 2 MG/ML VIAL. IV PRN ×6 (03:06→23:51)
[2020-01-01 03:54] LABS: HEMATOCRIT 36.4 % (39.0-53.0); HEMOGLOBIN 11.8 g/dL (13.0-17.5); RED BLOOD COUNT 4.22 x10^6/uL (4.30-5.70); RED CELL DISTRIBUTION WIDTH 14.5 % (11.5-14.5); WHITE BLOOD COUNT 9.3 x10^3/uL (4.0-11.0)
[2020-01-01 04:12] LABS: ALBUMIN 2.5 g/dL (3.4-5.0); ALBUMIN/GLOBULIN RATIO 0.6 (1.0-1.7); CALCIUM 8.5 mg/dL (8.5-10.1); CREATININE 2.9 mg/dL (0.7-1.3); GFR 22.9; TOTAL BILIRUBIN 0.3 mg/dL (0.2-1.0); TOTAL PROTEIN 6.9 g/dL (6.4-8.2)
[2020-01-01] MEDS: PIPERACILLIN/TAZOBACTAM 2.25 GM in IV NORMAL SALINE 50ML 50 ML IV SCH ×4 (06:14→23:53)
[2020-01-01] MEDS: hydrALAZINE 20 MG/ML VIAL. IVP PRN ×3 (06:14→23:51)
[2020-01-01] MEDS: HYDROcodone/APAP 7.5/325MG 1 TAB TABLET PO PRN (06:21)
[2020-01-01 07:00] VITALS: BP 175/95
[2020-01-01] MEDS: INSULIN LISPRO 300 UNITS/3 ML VIAL. SQ SCH ×3 (08:00→16:43)
[2020-01-01] MEDS: MULTIVITAMIN with MINERAL TABLET. PO SCH (08:52)
[2020-01-01] MEDS: ASPIRIN CHEWABLE 81 MG TABLET. PO SCH (08:52)
[2020-01-01] MEDS: LACTOBACILLUS RHAMNOSUS GG 1 CAPSULE. PO SCH ×2 (08:53→20:33)
[2020-01-01] MEDS: oxyCODONE ER 10 MG TAB.ER.12H PO SCH ×2 (08:53→20:34)
[2020-01-01] MEDS: GABAPENTIN 300 MG CAPSULE. PO SCH ×2 (08:53→20:33)
[2020-01-01] MEDS: ASCORBIC ACID 500 MG TABLET PO SCH (08:53)
[2020-01-01] MEDS: CLOPIDOGREL BISULFATE 75 MG TABLET PO SCH (08:54)
[2020-01-01] MEDS: PANTOPRAZOLE 40 MG TABLET.DR. PO SCH ×2 (08:54→17:35)
[2020-01-01] MEDS: amLODIPine BESYLATE 10 MG TABLET PO SCH (08:54)
[2020-01-01] MEDS: ISOSORBIDE MONONITRATE ER 30 MG TAB.ER.24H PO SCH (08:54)
[2020-01-01] MEDS: CARVEDILOL 12.5 MG TABLET. PO SCH ×2 (08:54→17:35)
--- NOTE | 2020-01-01 09:11 | PN ---
DATE: 01/01/2020 SUBJECTIVE: The patient is resting, slightly propped up in bed, in no apparent distress. On questioning him, he denied any complaint. The nursing staff did not voice any concerns that he had generally uneventful night. He apparently underwent left first toe partial amputation done in a closed fashion and his right first toe underwent sharp excisional debridement, removing necrotic skin and subcutaneous tissue. PHYSICAL EXAMINATION: GENERAL: When I examined him this morning, he looked well and was clearly in no apparent respiratory distress, slightly pale, but no jaundice, cyanosis, or thyromegaly. No jugular venous distention. No lower limb edema. VITAL SIGNS: His heart rate was 104, blood pressure was 175/95, temperature 98, respiratory rate was 14, and oxygen saturation was 96% on room air. The rest of clinical exam is stable. Wounds are covered with dressing. His intake was 2713, output was recorded. LABORATORY DATA: His lab work as of this morning showed a white cell count 9000; hemoglobin 12; hematocrit 36; MCV 86 and platelet count 276,000. His chemistry showed a serum sodium 139, potassium 4, chloride 107, bicarbonate 20, anion gap of 12, BUN 44, creatinine 2.9, estimated GFR was 23 mL per minute. His glucose 117 and calcium was 8.5. Total bilirubin, AST, ALT, alkaline phosphatase were normal. Total protein 6.9, albumin was 2.5. ASSESSMENT: 1. Infected right foot and chronic wound to the left big toe with cellulitis and osteomyelitis detected on a bone scan. He is currently on Zyvox and Zosyn. He underwent partial amputation of his left big toe and excisional debridement with right big toe. 2. Coronary artery disease, status post percutaneous coronary intervention with stent deployment to the left anterior descending and right coronary arteries. 3. Chronic congestive heart failure due to ischemic cardiomyopathy with an ejection fraction of 35% on his most recent echocardiogram. 4. Acute on chronic kidney injury. His creatinine came down from 3.2-2.9. 5. Hypertension, suboptimally controlled. 6. Hyperlipidemia. 7. Type 2 diabetes with recurrent episode of hypoglycemia, for which we had discontinued all his oral hypoglycemic agent. His blood sugar continued to be well within acceptable range. PLAN: To obviously continue with the IV antibiotic in the form of linezolid and Zosyn. Continue with the wound care. Continue with pain management. His blood pressure is not well controlled, so I will increase his hydralazine to 50 mg 3 times a day. SAMM PRASAD MD DR: OH/jose JOB#: [id number] / [id number]
[2020-01-01 11:00] VITALS: BP 188/107
--- NOTE | 2020-01-01 11:30 | PDOC ---
Infectious Disease Note Subjective Subjective Some right heel pain, otherwise feeling right ROS DAVE Winters F/C/SOA/N/V/D/rash Vital Sign Vital Signs Vital Signs Date Time Temp Pulse Resp B/P (MAP) Pulse Ox O2 Delivery O2 Flow Rate FiO2 01/01/20 11:00 97.9 77 16 188/107 (134) 98 Room Air 97.9 12/31/19 18:23 10.0 Physical Exam PHYSICAL EXAM GENERAL: Sitting in the chiar, alert in NAD HEENT: Oral cavity pink, moist. No thrush. NECK: Supple. LUNGS: Clear to auscultation HEART: S1, S2 regular. ABDOMEN: Soft and nontender EXTREMITIES: Both feet are currently bandaged. SKIN: without rash. NEUROLOGIC: Alert and appropriate. No focal neurologic deficit. PIV Labs Lab Laboratory Tests Test 12/31/19 15:07 12/31/19 17:02 12/31/19 21:05 01/01/20 03:30 Glucose (Fingerstick) 89 mg/dL (70-99) 188 mg/dL (70-99) 71 mg/dL (70-99) White Blood Count 9.3 x10^3/uL (4.0-11.0) Red Blood Count 4.22 x10^6/uL (4.30-5.70) Hemoglobin 11.8 g/dL (13.0-17.5) Hematocrit 36.4 % (39.0-53.0) Mean Corpuscular Volume 86 fL (79-100) Mean Corpuscular Hemoglobin 28 pg (25-35) Mean Corpuscular Hemoglobin Concent 32 g/dL (31-37) Red Cell Distribution Width 14.5 % (11.5-14.5) Platelet Count 276 x10^3/uL (140-400) Sodium Level 139 mmol/L (136-145) Potassium Level 4.0 mmol/L (3.5-5.1) Chloride Level 107 mmol/L (98-107) Carbon Dioxide Level 20 mmol/L (21-32) Anion Gap 12 (6-14) Blood Urea Nitrogen 44 mg/dL (8-26) Creatinine 2.9 mg/dL (0.7-1.3) Estimated GFR (Cockcroft-Gault) 22.9 BUN/Creatinine Ratio 15 (6-20) Glucose Level 117 mg/dL (70-99) Calcium Level 8.5 mg/dL (8.5-10.1) Total Bilirubin 0.3 mg/dL (0.2-1.0) Aspartate Amino Transf (AST/SGOT) 14 U/L (15-37) Alanine Aminotransferase (ALT/SGPT) 16 U/L (16-63) Alkaline Phosphatase 87 U/L (46-116) Total Protein 6.9 g/dL (6.4-8.2) Albumin 2.5 g/dL (3.4-5.0) Albumin/Globulin Ratio 0.6 (1.0-1.7) Test 01/01/20 07:48 Glucose (Fingerstick) 131 mg/dL (70-99) Objective Assessment Left big toe chronic ulcer with bone scan positive for osteomyelitis. s/p amputation, closed on 12/[address] Cheema. Right big toe ulcer, superficial. Bone scan is positive for osteomyelitis, but there is no clinical evidence of chronic or deep wound on to the right big toe. s/p debridement of necrotic skin & subcutaneous tissue on 12/30. Right foot cellulitis. Peripheral arterial disease. Coronary artery disease. Diabetes. Hypertension. Noncompliance. LEATHA on CKD, renal following Plan Plan of Care Zyvox and Zosyn, renally dosed Follow-up cultures Local wound care as directed Probiotics YVETTE MARIN APRN Jan 01, 2020 11:30 DULCE MARIA SRIVASTAVA MD Jan 01, 2020 12:48
--- NOTE | 2020-01-01 12:02 | PDOC ---
DATE OF SERVICE: DOS: DATE: 01/01/20 TIME: 11:59 SUBJECTIVE ROS Follow-up for chronic kidney disease stage IV + possible LEATHA Patient claims he is doing well. Denies any new complaints currently. CVS: no Orthopnea, no CP RESP: no SOB, no REYNOLDS GI: no Nausea, no Vomiting : no Dysuria, no Urgency OBJECTIVE Vital Signs Vital Signs Date Time Temp Pulse Resp B/P (MAP) Pulse Ox O2 Delivery O2 Flow Rate FiO2 01/01/20 11:23 77 188/107 01/01/20 11:00 97.9 16 98 Room Air 97.9 12/31/19 18:23 10.0 I & 0 Intake and Output 01/01/20 07:00 Intake Total 1350 ml Balance 1350 ml Intake Oral 950 ml IV Total 400 ml PHYSICAL EXAM Physical Exam GEN: Awake, Oriented x 3, In no distress EYES: Vision Unchanged, Conjunctiva Normal EN: No EN Drainage, Mucous Membranes moist NECK: no JVD, no JVP, Supple, no Thyromegaly CVS: S1S2, no Murmur, No Gallop, No Rub,no Edema RESP: no Rales, no Rhonchi,no Acc. Muscle Use GI: BS + ve, NO Bruit, Non Tender, Non Distended : no CVA tenderness, no Suprapubic Tenderness DIAGNOSIS/ASSESSMENT Assessment & Plan LEATHA -suspect ATN, Cr improved some : watch off of IVF CKD stage 3 - Suspect sec to HTN, diabetes and CHF Mild metabolic acidosis: Non-anion gap. Start oral bicarbonate for the time being Cellulitis both feet with possible underlying osteomyelitis: Defer to vascular surgery and wound care. Possible PVD Cardiomyopathy: EF 30-35% in 2019 HTN: BP high suspect due to Chronic Non compliance Anemia- Hgb stable, No indication for CELENA Chronic Noncompliance with meds, appointments COMMENT/RELEVANT DATA Meds Current Medications Medications (Trade) Dose Ordered Sig/Jerri Start Time Stop Time Status Last Admin Dose Admin Acetaminophen (Tylenol) 650 mg PRN Q6HRS PRN 12/27/19 20:30 Acetaminophen/ Hydrocodone Bitart (Lortab 7.5/325) 1 tab PRN Q4HRS PRN 12/28/19 01:45 01/01/20 06:21 1 TAB Amlodipine Besylate (Norvasc) 10 mg DAILY 12/30/19 10:15 01/01/20 08:54 10 MG Ascorbic Acid (Vitamin C) 500 mg DAILY 12/29/19 14:00 01/01/20 08:53 500 MG Aspirin (Aspirin Chewable) 81 mg DAILY 12/28/19 13:00 01/01/20 08:52 81 MG Atorvastatin Calcium (Lipitor) 40 mg QHS 12/28/19 21:00 12/31/19 21:18 40 MG Carvedilol (Coreg) 12.5 mg BIDWMEALS 12/30/19 17:00 01/01/20 08:54 12.5 MG Cefazolin Sodium 1 gm/Sodium Chloride 500 ml @ 500 mls/hr 1X ONCE 12/31/19 06:00 12/31/19 06:59 DC 12/31/19 14:37 Clopidogrel Bisulfate (Plavix) 75 mg DAILYWBKFT 12/28/19 13:00 01/01/20 08:54 75 MG Dextrose (Dextrose 50%-Water Syringe) 12.5 gm PRN Q15MIN PRN 12/27/19 20:30 Fentanyl Citrate (Fentanyl 2ml Vial) 100 mcg STK-MED ONCE 12/31/19 13:58 12/31/19 13:58 DC Gabapentin (Neurontin) 300 mg BID 12/28/19 13:00 01/01/20 08:53 300 MG Glimepiride (Amaryl) 2 mg DAILY 12/30/19 09:00 12/29/19 12:42 DC Hydralazine HCl (Apresoline Inj) 10 mg PRN Q4HRS PRN 12/28/19 17:30 01/01/20 11:23 10 MG Hydralazine HCl (Apresoline) 50 mg TID 01/01/20 09:00 01/01/20 08:53 50 MG Hydromorphone HCl (Dilaudid) 0.5 mg PRN Q10MIN PRN 12/31/19 07:30 12/31/19 16:12 DC Insulin Human Lispro (HumaLOG) 0-5 UNITS TIDWMEALS 12/28/19 08:00 12/31/19 18:35 2 UNITS Isosorbide Mononitrate (Imdur) 30 mg DAILY 12/31/19 09:00 01/01/20 08:54 30 MG Labetalol HCl (Trandate) 100 mg BID 12/28/19 21:00 12/30/19 14:03 DC 12/30/19 08:06 100 MG Lactobacillus Rhamnosus (Culturelle) 1 cap BID 12/29/19 21:00 01/01/20 08:53 1 CAP Lidocaine HCl (Lidocaine 1% 20ml Vial) 20 ml STK-MED ONCE 12/31/19 14:13 12/31/19 14:14 DC 12/31/19 14:15 5 ML Lidocaine HCl (Lidocaine Pf 2% Vial) 5 ml STK-MED ONCE 12/31/19 14:04 12/31/19 14:04 DC Lidocaine HCl (Xylocaine-Mpf 1% 2ml Vial) 2 ml PRN 1X PRN 12/31/19 07:30 12/31/19 16:12 DC Linagliptin (Tradjenta) 5 mg DAILY 12/28/19 13:00 12/29/19 12:27 DC 12/28/19 12:36 5 MG Linezolid/Dextrose 300 ml @ 300 mls/hr Q12HR 12/28/19 21:00 01/01/20 08:11 300 MLS/HR Morphine Sulfate (Morphine Sulfate) 2 mg PRN Q2HR PRN 12/31/19 14:45 01/01/20 10:03 2 MG Multivitamins (Thera M Plus) 1 tab DAILY 12/29/19 14:00 01/01/20 08:52 1 TAB Non-Formulary Medication (Carvedilol (Coreg)) 25 mg BIDWMEALS 12/28/19 17:00 UNV Non-Formulary Medication (Ropinirole Hcl ) 0.5 mg HS 12/28/19 21:00 UNV Ondansetron HCl (Zofran) 4 mg STK-MED ONCE 12/31/19 14:05 12/31/19 14:06 DC Oxycodone HCl (OxyCONTIN) 10 mg Q12HR 12/29/19 13:00 01/01/20 08:53 10 MG Pantoprazole Sodium (Protonix) 40 mg BIDAC 12/28/19 16:30 01/01/20 08:54 40 MG Phenylephrine HCl (PHENYLEPHRINE in 0.9% NACL PF) 1 mg STK-MED ONCE 12/31/19 14:40 12/31/19 14:40 DC Piperacillin Sod/ Tazobactam Sod 2.25 gm/Sodium Chloride 50 ml @ 100 mls/hr Q6HRS 12/28/19 12:00 01/01/20 11:23 100 MLS/HR Prochlorperazine Edisylate (Compazine) 5 mg PACU PRN PRN 12/31/19 07:30 12/31/19 16:12 DC Propofol (Diprivan) 200 mg STK-MED ONCE 12/31/19 14:04 12/31/19 14:04 DC Ringer's Solution 1,000 ml @ 30 mls/hr Q24H 12/31/19 07:29 12/31/19 16:12 DC Ropinirole HCl (Requip) 0.5 mg HS 12/27/19 21:00 12/31/19 21:17 0.5 MG Sevoflurane (Ultane) 30 ml STK-MED ONCE 12/31/19 14:06 12/31/19 14:06 DC Sodium Chloride 1,000 ml @ 100 mls/hr Q10H 12/27/19 20:30 12/30/19 14:16 DC 12/29/19 21:34 100 MLS/HR Temazepam (Restoril) 30 mg QHS 12/28/19 21:00 UNV Trazodone HCl (Desyrel) 50 mg QHS 12/28/19 21:00 12/31/19 21:17 50 MG Lab Laboratory Tests Test 12/31/19 15:07 12/31/19 17:02 12/31/19 21:05 01/01/20 03:30 Glucose (Fingerstick) 89 mg/dL (70-99) 188 mg/dL (70-99) 71 mg/dL (70-99) White Blood Count 9.3 x10^3/uL (4.0-11.0) Red Blood Count 4.22 x10^6/uL (4.30-5.70) Hemoglobin 11.8 g/dL (13.0-17.5) Hematocrit 36.4 % (39.0-53.0) Mean Corpuscular Volume 86 fL (79-100) Mean Corpuscular Hemoglobin 28 pg (25-35) Mean Corpuscular Hemoglobin Concent 32 g/dL (31-37) Red Cell Distribution Width 14.5 % (11.5-14.5) Platelet Count 276 x10^3/uL (140-400) Sodium Level 139 mmol/L (136-145) Potassium Level 4.0 mmol/L (3.5-5.1) Chloride Level 107 mmol/L (98-107) Carbon Dioxide Level 20 mmol/L (21-32) Anion Gap 12 (6-14) Blood Urea Nitrogen 44 mg/dL (8-26) Creatinine 2.9 mg/dL (0.7-1.3) Estimated GFR (Cockcroft-Gault) 22.9 BUN/Creatinine Ratio 15 (6-20) Glucose Level 117 mg/dL (70-99) Calcium Level 8.5 mg/dL (8.5-10.1) Total Bilirubin 0.3 mg/dL (0.2-1.0) Aspartate Amino Transf (AST/SGOT) 14 U/L (15-37) Alanine Aminotransferase (ALT/SGPT) 16 U/L (16-63) Alkaline Phosphatase 87 U/L (46-116) Total Protein 6.9 g/dL (6.4-8.2) Albumin 2.5 g/dL (3.4-5.0) Albumin/Globulin Ratio 0.6 (1.0-1.7) Test 01/01/20 07:48 01/01/20 11:44 Glucose (Fingerstick) 131 mg/dL (70-99) 89 mg/dL (70-99) Results All relevant outside records, renal labs, imaging studies, telemetry/EKG's were reviewed. Justicifation of Admission Dx: Justifications for Admission: Justification of Admission Dx: N/A Acute Renal Failure: Serum Cr > 4mg/dL MAGDY SRIVASTAVA MD Jan 01, 2020 12:02
[2020-01-01] MEDS: SODIUM BICARBONATE 650 MG TABLET. PO SCH ×2 (14:04→20:33)
[2020-01-01 15:00] VITALS: BP 178/103
[2020-01-01 19:00] VITALS: BP 199/106
[2020-01-01] MEDS: ATORVASTATIN CALCIUM 40 MG TABLET. PO SCH (20:33)
[2020-01-01] MEDS: rOPINIRole 0.25 MG TABLET. PO SCH (20:33)
[2020-01-01] MEDS: traZODone 50 MG TABLET. PO SCH (20:34)
[2020-01-01 23:04] VITALS: BP 201/110
[2020-01-02 04:02] VITALS: BP 171/88
[2020-01-02 04:55] LABS: CREATININE 2.7 mg/dL (0.7-1.3); GFR 24.8; POTASSIUM 3.9 mmol/L (3.5-5.1)
[2020-01-02] MEDS: PIPERACILLIN/TAZOBACTAM 2.25 GM in IV NORMAL SALINE 50ML 50 ML IV SCH ×4 (06:24→23:36)
[2020-01-02] MEDS: MORPHINE SULFATE 2 MG/ML VIAL. IV PRN ×4 (06:26→19:51)
[2020-01-02 07:00] VITALS: BP 195/109
[2020-01-02] MEDS: INSULIN LISPRO 300 UNITS/3 ML VIAL. SQ SCH ×3 (07:50→16:51)
[2020-01-02] MEDS: ASCORBIC ACID 500 MG TABLET PO SCH (08:01)
[2020-01-02] MEDS: CLOPIDOGREL BISULFATE 75 MG TABLET PO SCH (08:01)
[2020-01-02] MEDS: GABAPENTIN 300 MG CAPSULE. PO SCH ×2 (08:01→20:53)
[2020-01-02] MEDS: CARVEDILOL 12.5 MG TABLET. PO SCH ×2 (08:01→17:18)
[2020-01-02] MEDS: ASPIRIN CHEWABLE 81 MG TABLET. PO SCH (08:01)
[2020-01-02] MEDS: amLODIPine BESYLATE 10 MG TABLET PO SCH (08:02)
[2020-01-02] MEDS: PANTOPRAZOLE 40 MG TABLET.DR. PO SCH ×2 (08:02→17:18)
[2020-01-02] MEDS: SODIUM BICARBONATE 650 MG TABLET. PO SCH ×3 (08:02→20:51)
[2020-01-02] MEDS: LACTOBACILLUS RHAMNOSUS GG 1 CAPSULE. PO SCH ×2 (08:02→20:53)
[2020-01-02] MEDS: MULTIVITAMIN with MINERAL TABLET. PO SCH (08:02)
[2020-01-02] MEDS: ISOSORBIDE MONONITRATE ER 30 MG TAB.ER.24H PO SCH (08:02)
[2020-01-02] MEDS: oxyCODONE ER 10 MG TAB.ER.12H PO SCH ×2 (08:02→20:54)
--- NOTE | 2020-01-02 08:40 | PN ---
DATE: 01/02/2020 SUBJECTIVE: The patient is resting, slightly propped up in bed, no apparent distress, awake, alert, stated that the pain is there; hydrocodone is not effective, but morphine is more effective in treating his pain medication. His blood pressure continued to be extremely high and has had also one loose bowel movement this morning. PHYSICAL EXAMINATION: GENERAL: When I examined him, he looked well and was clearly in no apparent respiratory distress. Pale, no jaundice, cyanosis or thyromegaly. No jugular venous distention. No limb edema. VITAL SIGNS: Heart rate was 112, blood pressure was 195/109, temperature was 98, respiratory rate was 19 and oxygen saturation was 98% on room air. The rest of clinical exam is stable, has not really changed. His wounds on both feet covered with dressing. His intake over the last 24 hours was 2007 and 1315 output was recorded. LABORATORY DATA: As of this morning, his serum sodium was 141, potassium 3.9, chloride 108, bicarbonate 21, anion gap of 12, BUN 45, creatinine 2.7, estimated glomerular filtration rate was 25 mL per minute, his glucose was 100 and calcium was 8. ASSESSMENT: 1. Infected right foot and chronic wound of the left big toe with cellulitis and osteomyelitis detected on bone scan. He is currently on Zyvox and Zosyn. He underwent partial amputation of his left big toe and excisional debridement of his right big toe. 2. Coronary artery disease, status post percutaneous coronary intervention with stent deployment to the left anterior descending and right coronary arteries. 3. Chronic congestive heart failure due to ischemic cardiomyopathy with ejection fraction of 35% on his most recent echocardiogram. 4. Irxil-aa-hlwovdp kidney injury. His creatinine is coming down from 4.1-2.7. 5. Hypertension, suboptimally controlled. 6. Hyperlipidemia. 7. Type 2 diabetes with recurrent episodes of hypoglycemia for which I discontinued all his hypoglycemic agent. His blood sugar continued to be well within normal acceptable range. PLAN: To increase his Coreg to 25 mg twice a day, increase his hydralazine to 100 mg 3 times a day. Continue meanwhile with IV antibiotic. If he continue to have loose bowel movement send stool for Clostridium difficile. SAMM PRASAD MD DR: OH/jose JOB#: [id number] / [id number]
[2020-01-02 11:00] VITALS: BP 168/96
--- NOTE | 2020-01-02 11:42 | PDOC ---
Infectious Disease Note Subjective Subjective Some diarrhea x 1 episode this morning Deneis cramps/bloating/N/V/F/C Dressing were changed earlier ROS ROS as mentioned above Vital Sign Vital Signs Vital Signs Date Time Temp Pulse Resp B/P (MAP) Pulse Ox O2 Delivery O2 Flow Rate FiO2 01/02/20 11:12 Room Air 01/02/20 11:00 97.9 96 19 168/96 (120) 98 97.9 Physical Exam PHYSICAL EXAM GENERAL: Propped up in bed, alert in NAD HEENT: Oral cavity pink, moist. No thrush. NECK: Supple. LUNGS: Clear to auscultation HEART: S1, S2 regular. ABDOMEN: Soft and nontender EXTREMITIES: Both feet are currently bandaged. SKIN: without rash. NEUROLOGIC: Alert and appropriate. No focal neurologic deficit. PIV Labs Lab Laboratory Tests Test 01/01/20 11:44 01/01/20 16:42 01/01/20 20:31 01/02/20 04:00 Glucose (Fingerstick) 89 mg/dL (70-99) 129 mg/dL (70-99) 143 mg/dL (70-99) Sodium Level 141 mmol/L (136-145) Potassium Level 3.9 mmol/L (3.5-5.1) Chloride Level 108 mmol/L (98-107) Carbon Dioxide Level 21 mmol/L (21-32) Anion Gap 12 (6-14) Blood Urea Nitrogen 45 mg/dL (8-26) Creatinine 2.7 mg/dL (0.7-1.3) Estimated GFR (Cockcroft-Gault) 24.8 Glucose Level 100 mg/dL (70-99) Calcium Level 8.0 mg/dL (8.5-10.1) Test 01/02/20 07:16 01/02/20 10:58 Glucose (Fingerstick) 110 mg/dL (70-99) 157 mg/dL (70-99) Micro Left toe. 12/30. GRAM STAIN Final Final NO ORGANISMS SEEN. SQUAMOUS EPI CELL:NONE SEEN PMN (WBCs):RARE Unless otherwise specified, Testing Performed by: [facility] [address] [place] [address] For Inquires, the Physician may contact the Microbiology department at [phone] ANAEROBIC-AEROBIC CULTURE PENDING Objective Assessment Left big toe chronic ulcer with bone scan positive for osteomyelitis. s/p amputation, closed on 12/[address] Cheema. Culture pending Right big toe ulcer, superficial. Bone scan is positive for osteomyelitis, but there is no clinical evidence of chronic or deep wound on to the right big toe. s/p debridement of necrotic skin & subcutaneous tissue on 12/30. Right foot cellulitis. Peripheral arterial disease. Coronary artery disease. Diabetes. Hypertension. Noncompliance. LEATHA on CKD, renal following Diarrhea Plan Plan of Care Zyvox and Zosyn, renally dosed Follow-up cultures Local wound care as directed Probiotics If diarrhea persists, then will check for C. diff. Attending Co-Sign The patient was seen and interviewed as well as examined at the bedside. The chart was reviewed. The case was discussed. Agree with the plan of care. YVETTE MARIN APRN Jan 02, 2020 11:41 DULCE MARIA SRIVASTAVA MD Jan 02, 2020 12:13
[2020-01-02] MEDS ORDERED: ISOSORBIDE MONONITRATE ER 30 MG TAB.ER.24H PO SCH (14:45)
[2020-01-02 15:00] VITALS: BP 175/100
[2020-01-02] MEDS ORDERED: ISOSORBIDE MONONITRATE ER 30 MG TAB.ER.24H PO ONE (15:00)
[2020-01-02 19:00] VITALS: BP 195/107
[2020-01-02] MEDS: hydrALAZINE 20 MG/ML VIAL. IVP PRN (19:50)
[2020-01-02] MEDS: traZODone 50 MG TABLET. PO SCH (20:52)
[2020-01-02] MEDS: rOPINIRole 0.25 MG TABLET. PO SCH (20:52)
[2020-01-02] MEDS: ATORVASTATIN CALCIUM 40 MG TABLET. PO SCH (20:53)
[2020-01-02 23:05] VITALS: BP 187/98
[2020-01-03] MEDS: MORPHINE SULFATE 2 MG/ML VIAL. IV PRN ×4 (01:31→11:14)
[2020-01-03 03:05] VITALS: BP 182/102
[2020-01-03 05:32] LABS: HEMATOCRIT 36.9 % (39.0-53.0); HEMOGLOBIN 11.9 g/dL (13.0-17.5); RED BLOOD COUNT 4.28 x10^6/uL (4.30-5.70); RED CELL DISTRIBUTION WIDTH 14.6 % (11.5-14.5); WHITE BLOOD COUNT 9.9 x10^3/uL (4.0-11.0)
[2020-01-03] MEDS: PIPERACILLIN/TAZOBACTAM 2.25 GM in IV NORMAL SALINE 50ML 50 ML IV SCH (05:36)
[2020-01-03 05:54] LABS: ALBUMIN 2.8 g/dL (3.4-5.0); ALBUMIN/GLOBULIN RATIO 0.6 (1.0-1.7); CALCIUM 8.7 mg/dL (8.5-10.1); CREATININE 2.7 mg/dL (0.7-1.3); GFR 24.8; TOTAL BILIRUBIN 0.3 mg/dL (0.2-1.0); TOTAL PROTEIN 7.5 g/dL (6.4-8.2)
[2020-01-03 07:00] VITALS: BP 196/115
[2020-01-03] MEDS: PANTOPRAZOLE 40 MG TABLET.DR. PO SCH ×2 (07:58→16:57)
[2020-01-03] MEDS: oxyCODONE ER 10 MG TAB.ER.12H PO SCH ×2 (07:59→21:32)
[2020-01-03] MEDS: INSULIN LISPRO 300 UNITS/3 ML VIAL. SQ SCH ×3 (08:00→17:00)
[2020-01-03] MEDS: LACTOBACILLUS RHAMNOSUS GG 1 CAPSULE. PO SCH ×2 (09:07→21:32)
[2020-01-03] MEDS: ISOSORBIDE MONONITRATE ER 30 MG TAB.ER.24H PO SCH (09:08)
[2020-01-03] MEDS: MULTIVITAMIN with MINERAL TABLET. PO SCH (09:08)
[2020-01-03] MEDS: GABAPENTIN 300 MG CAPSULE. PO SCH ×2 (09:08→21:32)
[2020-01-03] MEDS: SODIUM BICARBONATE 650 MG TABLET. PO SCH ×3 (09:08→21:31)
[2020-01-03] MEDS: ASCORBIC ACID 500 MG TABLET PO SCH (09:08)
[2020-01-03] MEDS: amLODIPine BESYLATE 10 MG TABLET PO SCH (09:09)
[2020-01-03] MEDS: CARVEDILOL 12.5 MG TABLET. PO SCH ×2 (09:09→16:58)
[2020-01-03] MEDS: ASPIRIN CHEWABLE 81 MG TABLET. PO SCH (09:10)
[2020-01-03] MEDS: CLOPIDOGREL BISULFATE 75 MG TABLET PO SCH (09:10)
--- NOTE | 2020-01-03 09:40 | PN ---
DATE: 01/03/2020 SUBJECTIVE: The patient is resting, slightly propped up, sleeping comfortably, no apparent respiratory distress. He continued to have extremely high blood pressure and sinus tachycardia despite the fact that he increased his Coreg to 25 mg twice a day. I did also increase hydralazine to 100 mg 3 times a day, isosorbide mononitrate 60 mg once a day and he is also on amlodipine 10 mg once a day. PHYSICAL EXAMINATION: GENERAL: When I examined him this morning, he was pale. No jaundice, cyanosis or thyromegaly. No jugular venous distention or limb edema. VITAL SIGNS: His heart rate was 108, blood pressure was 182/102, temperature was 98.4, respiratory rate was 18 and oxygen saturation was 95%. The rest of clinical exam is stable. SKIN: Wounds in both feet covered with dressing. His intake was 1050, no output was recorded. LABORATORY DATA: As of this morning, his white cell count was 9900, hemoglobin 11.9, hematocrit 36.9, MCV 86 and platelet count 265,000. Serum sodium 140, potassium 4, chloride 107, bicarbonate 21, anion gap of 12, BUN 39, creatinine 2.7, estimated GFR was 24 mL per minute. His glucose was 125, calcium was 8.7. Total bilirubin, AST, ALT, alkaline phosphatase were normal. Total protein 7.5, albumin 2.8. ASSESSMENT: 1. Diarrhea last night, do we send any stool for Clostridium difficile. 2. Infected right foot and chronic wound to the left big toe with cellulitis and osteomyelitis detected on bone scan. He is currently on Zyvox and Zosyn. He underwent partial amputation of his big toe and excisional debridement of his right big toe. 3. Coronary artery disease, status post percutaneous coronary intervention with stent deployment to the left anterior descending, right coronary arteries. 4. Chronic systolic congestive heart failure, ischemic cardiomyopathy with an ejection fraction of 35% on his most recent echocardiogram. 5. Acute on chronic kidney injury. His creatinine has plateaued around 2.7. 6. Hypertension, suboptimally controlled. 7. Hyperlipidemia. 8. Type 2 diabetes with recurrent episode of hypoglycemia, for which I discontinued all his oral hypoglycemic agent. His blood sugars continued to be well within normal range. 9. Recurrent episode of loose bowel movement, which we will send stool for Clostridium difficile. PLAN: To increase his isosorbide mononitrate to 60 mg. He is now on Coreg 25 mg twice a day, hydralazine 100 mg 3 times a day as well as amlodipine 10 mg once a day. We will continue with IV antibiotic. SAMM PRASAD MD DR: OH/jose JOB#: [id number] / [id number]
--- NOTE | 2020-01-03 10:22 | RAD ---
US RENAL DUPLEX History: Reason: poorlycontroled hypertension to evaluate for renal artery stenosis / Spl. Instructions: / History: Comparison: None. Technique: Multiple grayscale, color flow, and Doppler spectral waveform analysis images of the abdominal aorta and renal arteries were obtained. Findings: Abdominal aorta peak systolic velocity: Not evaluated due to overlying bowel gas. Right main renal artery peak systolic velocity: 78 cm/sec. Right renal artery to aorta ratio: Unable to be obtained Left main renal artery peak systolic velocity: 89 cm/sec. Left renal artery to aorta ratio: Unable to be obtained IVC and renal veins. Due to overlying bowel gas. The right kidney measures 11.1 x 5.7 cm. The left kidney measures 11.2 x 5.7 cm. Kidneys are normal in echotexture. No hydronephrosis. Elevated right renal artery resistive index 0.85. Elevated left renal artery resistive index 0.82. IMPRESSION: 1. Degraded evaluation with aorta not evaluated. Renal artery to aortic ratio not calculated. 2. No evidence of renal artery velocity elevation to suggest stenosis. 3. Elevated renal artery resistive indices, may indicate medical renal disease. Electronically signed by: Rory Garcia DO (01/03/2020 10:20 AM) [id number]
--- NOTE | 2020-01-03 10:58 | PDOC ---
Infectious Disease Note Subjective: Subjective Pt has diarrhea with some abdominal cramps Deneis N/V/F/C Dressing were changed yesterday Vital Signs: Vital Signs Vital Signs Date Time Temp Pulse Resp B/P (MAP) Pulse Ox O2 Delivery O2 Flow Rate FiO2 01/03/20 10:51 Room Air 01/03/20 09:09 112 196/115 01/03/20 07:00 98.2 17 95 98.2 Physical Exam: PHYSICAL EXAM GENERAL: Propped up in bed, alert in NAD HEENT: Oral cavity pink, moist. No thrush. NECK: Supple. LUNGS: Clear to auscultation HEART: S1, S2 regular. ABDOMEN: Soft and nontender EXTREMITIES: Both feet are currently bandaged. SKIN: without rash. NEUROLOGIC: Alert and appropriate. No focal neurologic deficit. PIV Medications: Inpatient Meds: Current Medications Medications (Trade) Dose Ordered Sig/Jerri Start Time Stop Time Status Last Admin Dose Admin Acetaminophen (Tylenol) 650 mg PRN Q6HRS PRN 12/27/19 20:30 Acetaminophen/ Hydrocodone Bitart (Lortab 7.5/325) 1 tab PRN Q4HRS PRN 12/28/19 01:45 01/01/20 06:21 1 TAB Amlodipine Besylate (Norvasc) 10 mg DAILY 12/30/19 10:15 01/03/20 09:09 10 MG Ascorbic Acid (Vitamin C) 500 mg DAILY 12/29/19 14:00 01/03/20 09:08 500 MG Aspirin (Aspirin Chewable) 81 mg DAILY 12/28/19 13:00 01/03/20 09:10 81 MG Atorvastatin Calcium (Lipitor) 40 mg QHS 12/28/19 21:00 01/02/20 20:53 40 MG Carvedilol (Coreg) 25 mg BIDWMEALS 01/02/20 08:00 01/03/20 09:09 25 MG Cefazolin Sodium 1 gm/Sodium Chloride 500 ml @ 500 mls/hr 1X ONCE 12/31/19 06:00 12/31/19 06:59 DC 12/31/19 14:37 Clopidogrel Bisulfate (Plavix) 75 mg DAILYWBKFT 12/28/19 13:00 01/03/20 09:10 75 MG Dextrose (Dextrose 50%-Water Syringe) 12.5 gm PRN Q15MIN PRN 12/27/19 20:30 Fentanyl Citrate (Fentanyl 2ml Vial) 100 mcg STK-MED ONCE 12/31/19 13:58 12/31/19 13:58 DC Gabapentin (Neurontin) 300 mg BID 12/28/19 13:00 01/03/20 09:08 300 MG Glimepiride (Amaryl) 2 mg DAILY 12/30/19 09:00 12/29/19 12:42 DC Hydralazine HCl (Apresoline Inj) 10 mg PRN Q4HRS PRN 12/28/19 17:30 01/02/20 19:50 10 MG Hydralazine HCl (Apresoline) 100 mg TID 01/02/20 08:00 01/03/20 09:08 100 MG Hydromorphone HCl (Dilaudid) 0.5 mg PRN Q10MIN PRN 12/31/19 07:30 12/31/19 16:12 DC Insulin Human Lispro (HumaLOG) 0-5 UNITS TIDWMEALS 12/28/19 08:00 01/02/20 12:00 2 UNITS Isosorbide Mononitrate (Imdur) 30 mg 1X ONCE 01/02/20 15:00 01/02/20 15:01 DC 01/02/20 14:59 30 MG Labetalol HCl (Trandate) 100 mg BID 12/28/19 21:00 12/30/19 14:03 DC 12/30/19 08:06 100 MG Lactobacillus Rhamnosus (Culturelle) 1 cap BID 12/29/19 21:00 01/03/20 09:07 1 CAP Lidocaine HCl (Lidocaine 1% 20ml Vial) 20 ml STK-MED ONCE 12/31/19 14:13 12/31/19 14:14 DC 12/31/19 14:15 5 ML Lidocaine HCl (Lidocaine Pf 2% Vial) 5 ml STK-MED ONCE 12/31/19 14:04 12/31/19 14:04 DC Lidocaine HCl (Xylocaine-Mpf 1% 2ml Vial) 2 ml PRN 1X PRN 12/31/19 07:30 12/31/19 16:12 DC Linagliptin (Tradjenta) 5 mg DAILY 12/28/19 13:00 12/29/19 12:27 DC 12/28/19 12:36 5 MG Linezolid/Dextrose 300 ml @ 300 mls/hr Q12HR 12/28/19 21:00 01/03/20 09:07 300 MLS/HR Morphine Sulfate (Morphine Sulfate) 2 mg PRN Q2HR PRN 12/31/19 14:45 01/03/20 09:10 2 MG Multivitamins (Thera M Plus) 1 tab DAILY 12/29/19 14:00 01/03/20 09:08 1 TAB Non-Formulary Medication (Carvedilol (Coreg)) 25 mg BIDWMEALS 12/28/19 17:00 UNV Non-Formulary Medication (Ropinirole Hcl ) 0.5 mg HS 12/28/19 21:00 UNV Ondansetron HCl (Zofran) 4 mg STK-MED ONCE 12/31/19 14:05 12/31/19 14:06 DC Oxycodone HCl (OxyCONTIN) 10 mg Q12HR 12/29/19 13:00 01/03/20 07:59 10 MG Pantoprazole Sodium (Protonix) 40 mg BIDAC 12/28/19 16:30 01/03/20 07:58 40 MG Phenylephrine HCl (PHENYLEPHRINE in 0.9% NACL PF) 1 mg STK-MED ONCE 12/31/19 14:40 12/31/19 14:40 DC Piperacillin Sod/ Tazobactam Sod 2.25 gm/Sodium Chloride 50 ml @ 100 mls/hr Q6HRS 12/28/19 12:00 01/03/20 05:36 100 MLS/HR Prochlorperazine Edisylate (Compazine) 5 mg PACU PRN PRN 12/31/19 07:30 12/31/19 16:12 DC Propofol (Diprivan) 200 mg STK-MED ONCE 12/31/19 14:04 12/31/19 14:04 DC Ringer's Solution 1,000 ml @ 30 mls/hr Q24H 12/31/19 07:29 12/31/19 16:12 DC Ropinirole HCl (Requip) 0.5 mg HS 12/27/19 21:00 01/02/20 20:52 0.5 MG Sevoflurane (Ultane) 30 ml STK-MED ONCE 12/31/19 14:06 12/31/19 14:06 DC Sodium Bicarbonate (Sodium Bicarbonate) 650 mg TID 01/01/20 14:00 01/03/20 09:08 650 MG Sodium Chloride 1,000 ml @ 100 mls/hr Q10H 12/27/19 20:30 12/30/19 14:16 DC 12/29/19 21:34 100 MLS/HR Temazepam (Restoril) 30 mg QHS 12/28/19 21:00 UNV Trazodone HCl (Desyrel) 50 mg QHS 12/28/19 21:00 01/02/20 20:52 50 MG Labs: Lab Laboratory Tests Test 01/02/20 10:58 01/02/20 16:42 01/02/20 20:52 01/03/20 05:20 Glucose (Fingerstick) 157 mg/dL (70-99) 125 mg/dL (70-99) 152 mg/dL (70-99) White Blood Count 9.9 x10^3/uL (4.0-11.0) Red Blood Count 4.28 x10^6/uL (4.30-5.70) Hemoglobin 11.9 g/dL (13.0-17.5) Hematocrit 36.9 % (39.0-53.0) Mean Corpuscular Volume 86 fL (79-100) Mean Corpuscular Hemoglobin 28 pg (25-35) Mean Corpuscular Hemoglobin Concent 32 g/dL (31-37) Red Cell Distribution Width 14.6 % (11.5-14.5) Platelet Count 265 x10^3/uL (140-400) Sodium Level 140 mmol/L (136-145) Potassium Level 4.0 mmol/L (3.5-5.1) Chloride Level 107 mmol/L (98-107) Carbon Dioxide Level 21 mmol/L (21-32) Anion Gap 12 (6-14) Blood Urea Nitrogen 39 mg/dL (8-26) Creatinine 2.7 mg/dL (0.7-1.3) Estimated GFR (Cockcroft-Gault) 24.8 BUN/Creatinine Ratio 14 (6-20) Glucose Level 125 mg/dL (70-99) Calcium Level 8.7 mg/dL (8.5-10.1) Total Bilirubin 0.3 mg/dL (0.2-1.0) Aspartate Amino Transf (AST/SGOT) 17 U/L (15-37) Alanine Aminotransferase (ALT/SGPT) 15 U/L (16-63) Alkaline Phosphatase 87 U/L (46-116) Total Protein 7.5 g/dL (6.4-8.2) Albumin 2.8 g/dL (3.4-5.0) Albumin/Globulin Ratio 0.6 (1.0-1.7) Test 01/03/20 07:36 Glucose (Fingerstick) 121 mg/dL (70-99) Objective: Assessment: Left big toe chronic ulcer with bone scan positive for osteomyelitis. s/p amputation, closed on 12/[address] Cheema. Culture + serratia and PSAE Right big toe ulcer, superficial. Bone scan is positive for osteomyelitis, but there is no clinical evidence of chronic or deep wound on to the right big toe. s/p debridement of necrotic skin & subcutaneous tissue on 12/30. Right foot cellulitis. Peripheral arterial disease. Coronary artery disease. Diabetes. Hypertension. Noncompliance. LEATHA on CKD, renal following Diarrhea Plan: Plan of Care Zyvox DC Zosyn start merrem f/u C diff PCR Follow-up cultures Local wound care as directed Probiotics d/w AURELIA DACOSTA MD Jan 03, 2020 10:58
[2020-01-03 11:00] VITALS: BP 181/97
--- NOTE | 2020-01-03 11:15 | NUR ---
SW following. Discussed with RN, pt had surg 12/30, gets around fine. IV zyvox, zosyn. Pt having loose stools - sample being sent today. SW will continue to follow.
[2020-01-03] MEDS: hydrALAZINE 20 MG/ML VIAL. IVP PRN (11:27)
--- NOTE | 2020-01-03 12:04 | PDOC ---
Renal-Progress Notes Subjective Notes Notes NO NEW COMPLAINTS History of Present Illness Hx of present illness STABLE Vitals Vitals Vital Signs Date Time Temp Pulse Resp B/P (MAP) Pulse Ox O2 Delivery O2 Flow Rate FiO2 01/03/20 11:27 94 181/97 01/03/20 11:14 Room Air 01/03/20 07:00 98.2 17 95 98.2 Weight Weight [ ] I.O. Intake and Output Intake and Output 01/03/20 07:00 Intake Total 970 ml Output Total 0 ml Balance 970 ml Intake Oral 920 ml IV Total 50 ml Output Urine Total 0 ml # Voids 3 Labs Labs Laboratory Tests Test 01/02/20 16:42 01/02/20 20:52 01/03/20 05:20 01/03/20 07:36 Glucose (Fingerstick) 125 mg/dL (70-99) 152 mg/dL (70-99) 121 mg/dL (70-99) White Blood Count 9.9 x10^3/uL (4.0-11.0) Red Blood Count 4.28 x10^6/uL (4.30-5.70) Hemoglobin 11.9 g/dL (13.0-17.5) Hematocrit 36.9 % (39.0-53.0) Mean Corpuscular Volume 86 fL (79-100) Mean Corpuscular Hemoglobin 28 pg (25-35) Mean Corpuscular Hemoglobin Concent 32 g/dL (31-37) Red Cell Distribution Width 14.6 % (11.5-14.5) Platelet Count 265 x10^3/uL (140-400) Sodium Level 140 mmol/L (136-145) Potassium Level 4.0 mmol/L (3.5-5.1) Chloride Level 107 mmol/L (98-107) Carbon Dioxide Level 21 mmol/L (21-32) Anion Gap 12 (6-14) Blood Urea Nitrogen 39 mg/dL (8-26) Creatinine 2.7 mg/dL (0.7-1.3) Estimated GFR (Cockcroft-Gault) 24.8 BUN/Creatinine Ratio 14 (6-20) Glucose Level 125 mg/dL (70-99) Calcium Level 8.7 mg/dL (8.5-10.1) Total Bilirubin 0.3 mg/dL (0.2-1.0) Aspartate Amino Transf (AST/SGOT) 17 U/L (15-37) Alanine Aminotransferase (ALT/SGPT) 15 U/L (16-63) Alkaline Phosphatase 87 U/L (46-116) Total Protein 7.5 g/dL (6.4-8.2) Albumin 2.8 g/dL (3.4-5.0) Albumin/Globulin Ratio 0.6 (1.0-1.7) Test 01/03/20 11:22 Glucose (Fingerstick) 147 mg/dL (70-99) Micro Micro Microbiology 12/31/19 Gram Stain - Final, Resulted 12/31/19 Aerobic and Anaerobic Culture - Preliminary, Resulted 12/31/19 Antimicrobic Susceptibility - Preliminary, Resulted Review of Systems Constitutional: yes: alert Ears/Nose/Throat: Yes: no symptom reported Pulmonary: Yes no symptom reported Cardiovascular: Yes no symptom reported Gastrointestional: Yes: no symptom reported Genitourinary: Yes: no symptom reported Musculoskeletal: Yes: no symptom reported Psychiatric/Neurological: Yes: no symptom reported Endocrine: Yes: no symptom reported Hematologic/Lymphatic: Yes: no symptom reported Physical Exam General Appearance: no apparent distress Skin: warm Respiratory: bilateral CTA Heart: S1S2 Abdomen: soft, bowel sounds present Genitourinary: bladder flat Neurology: alert, oriented, follow commands Musculoskeletal: Other Assessment Assessment IMP LEATHA-RESOLVED WITH CR DOWN TO 2.7-HX OF LEATHA NEEDING HD COUPLE YEARS AGO WHILE AT [facility] CKD STATGE 4-CR AT BASELINE NOW L BIG TOE ULCER AND OSTEOMYELITIS-S/P AMP RIGHT FOOT CELLULITIS DM II HTN PLAN WOUND CARE ANTIBIOTICS RENAL FXN STABLE NOW ENC PT TO KEEP OP APPT AT D/C WILL FOLLOW PAT GARRISON MD Jan 03, 2020 12:04
[2020-01-03] MEDS: MEROPENEM 500 MG in IV NORMAL SALINE 50ML 50 ML IV SCH ×2 (14:37→21:33)
[2020-01-03] MEDS: MORPHINE SULFATE 4 MG/ML VIAL. IV PRN ×3 (14:37→23:24)
[2020-01-03 15:00] VITALS: BP 168/93
--- NOTE | 2020-01-03 15:30 | NUR ---
Wound Care Wound Type/Assessment: patient seen per wound care consult. see wound assessment. patient seen with [facility] and [facility]. See Kady's progress note. Treatment Recommendations/Plan: patient has orders from vascular for dressing changes. Reapplied dressings per vascular orders. Wounds cleaned, measured, pictured and dressings applied at this time. Discharge Recommendations for dressings: recommendations of patient to f/u in the outpatient wound clinic at discharge.
--- NOTE | 2020-01-03 15:38 | PDOC ---
Provider Note Date of Service: DATE: 01/03/20 TIME: 15:36 Provider Note Provider Note vascular S: Patient seen and examined in room, patient states he continues to have some pain in his left heel and ankle. O: Awake and alert Afebrile, systolic BP 180s Right toe to foot with granulation tissue, periwound intact. Left first toe incision dry and intact, there is some mild erythema and swelling. A/P: Left first toe chronic open wound with exposed bone, necrotic tissue and osteomyelitis. Right first toe tip open wound with superficial necrotic tissue and no exposed bone. POD #3 1. Left first toe partial amputation done in a closed fashion. 2. Right first toe sharp excisional debridement removing necrotic skin and subcutaneous tissue, measurements after debridement were approximately 1.5 cm in length x 1.5 cm in width x superficial in depth. Recommend daily dry gauze dressing to left first toe amputation site. Follow wound care instructions for wound care to right first toe. Patient may be up ad thu. with postop shoes. Recommend patient elevate legs while in bed. We will continue to monitor. Patient will need to follow-up in [address] Cheema. Justicifation of Admission Dx: Justifications for Admission: Justification of Admission Dx: N/A Acute Renal Failure: Serum Cr > 4mg/dL SIL RAMOS APRN Jan 03, 2020 15:38
--- NOTE | 2020-01-03 16:02 | PDOC ---
Progress Note-Wound Care SUBJECTIVE Wound f/u s/p left first toe partial ampuatation done in closed fashion and right first toe DFU Patient denies pain at this time, states that he has been having intermittent pain more prominent in the right heel with ambulation. Patient states that he has had some nausea and diarrhea secondary to the IV antibiotics. Patient states that he continues to eat and drink well. Patient continues to deny cough or shortness of breath. Patient states that he has been sleeping well without mood swings. OBJECTIVE Vital Signs Vital Signs Date Time Temp Pulse Resp B/P (MAP) Pulse Ox O2 Delivery O2 Flow Rate FiO2 01/02/20 07:00 98.0 112 19 195/109 (137) 98 Room Air 98.0 Vital Signs Date Time Temp Pulse Resp B/P (MAP) Pulse Ox O2 Delivery O2 Flow Rate FiO2 01/03/20 14:37 Room Air 01/03/20 14:37 94 168/93 01/03/20 11:00 98.1 17 95 98.1 Physical Exam: Patient awake and alert 54-year-old male in no apparent distress. Vit al signs are stable. Patient is afebrile. Patient is resting in room in his recliner. Respirations are even and unlabored. Patient is on room air not requiring supplemental oxygen at this time. Abdomen is soft, nondistended and nontender. Skin is warm, dry and pink. They closed amputation on the left foot reveals an incision which is well approximated with sutures. Surrounding tissue does reveal increased erythema which is blanchable. There is moderate serosanguineous drainage present without maceration noted. The right great toe reveals a 1.5 x 1.4 x 0.1 cm ulceration. Wound bed is 100% hyper granulation with surrounding callus formation. There is no erythema or edema noted. Following written consent a sterile curette was used to debride surrounding callus, nonviable tissue at edges and minimal subcutaneous tissue. Minimal bleeding was controlled with pressure. A nitrate stick was used to the hyper granulation. Patient denied painful symptoms throughout procedure. Following procedure wound bed measures 1.8 x 1.4 x 0.1 cm. PLAN 1. Left first toe partial amputation done in a closed fashion. -Vascular following and aware of increased erythema at incision site 2. Right first toe DFU - sharp excisional debridement done at bedside -Cleanse and pat dry. Apply skin prep to surrounding tissue cover with Aquasol AG and secure with Kerlix. Change every 3 days or as needed if dressing loose or saturated -Dietary consulting to ensure patient with adequate protein intake for optimal wound healing -Patient should be nonweightbearing to the affected areas. Dharmesh has been consulted for bilateral offloading shoes FOLLOW-UP Patient will need follow-up in the wound care center following discharge ROSITA GUEVARA APRN Jan 03, 2020 16:02
[2020-01-03] MEDS: HYDROcodone/APAP 7.5/325MG 1 TAB TABLET PO PRN (16:15)
--- NOTE | 2020-01-03 16:45 | PDOC ---
PROGRESS NOTES Date of Service DATE: 01/03/20 TIME: 16:43 Subjective Subjective Patient seen and examined Objective Objective Vital Signs Date Time Temp Pulse Resp B/P (MAP) Pulse Ox O2 Delivery O2 Flow Rate FiO2 01/03/20 16:18 Room Air 01/03/20 15:00 97.6 94 17 168/93 (118) 96 97.6 12/31/19 18:23 10.0 Intake and Output 01/03/20 07:00 Intake Total 970 ml Output Total 0 ml Balance 970 ml Intake Oral 920 ml IV Total 50 ml Output Urine Total 0 ml # Voids 3 Physical Exam Abdomen: Normal bowel sounds Heart: Regular rate General: mild distress Lungs: Clear to auscultation Assessment Assessment 1. Diabetic foot ulcers/osteomyelitis. Status post amputation as above. Followed by wound care. 2. Recent mechanical fall resulting to some of his foot wound. No syncope 3. Severe RLE PAD with claudication: noted per duplex. 2+ right DP and 1+ left DP. Followed by vascular surgery. 4. ICM: prior EF 30-35%. No NSVT, noted artifact. Maintaining SR. Compensated 5. CAD: past stents. No chest pain. 6. HTN urgency 7. HLP 8. DM2: noted with hypoglycemic episodes 9. Severe LEATHA: temporary HD done a yr ago at [facility]. Nephrology following. Cr improving Comment Review of Relevant I have reviewed the following items gavin (where applicable) has been applied. Labs Laboratory Tests Test 01/01/20 20:31 01/02/20 04:00 01/02/20 07:16 01/02/20 10:58 Glucose (Fingerstick) 143 mg/dL (70-99) 110 mg/dL (70-99) 157 mg/dL (70-99) Sodium Level 141 mmol/L (136-145) Potassium Level 3.9 mmol/L (3.5-5.1) Chloride Level 108 mmol/L (98-107) Carbon Dioxide Level 21 mmol/L (21-32) Anion Gap 12 (6-14) Blood Urea Nitrogen 45 mg/dL (8-26) Creatinine 2.7 mg/dL (0.7-1.3) Estimated GFR (Cockcroft-Gault) 24.8 Glucose Level 100 mg/dL (70-99) Calcium Level 8.0 mg/dL (8.5-10.1) Test 01/02/20 16:42 01/02/20 20:52 01/03/20 05:20 01/03/20 07:36 Glucose (Fingerstick) 125 mg/dL (70-99) 152 mg/dL (70-99) 121 mg/dL (70-99) White Blood Count 9.9 x10^3/uL (4.0-11.0) Red Blood Count 4.28 x10^6/uL (4.30-5.70) Hemoglobin 11.9 g/dL (13.0-17.5) Hematocrit 36.9 % (39.0-53.0) Mean Corpuscular Volume 86 fL (79-100) Mean Corpuscular Hemoglobin 28 pg (25-35) Mean Corpuscular Hemoglobin Concent 32 g/dL (31-37) Red Cell Distribution Width 14.6 % (11.5-14.5) Platelet Count 265 x10^3/uL (140-400) Sodium Level 140 mmol/L (136-145) Potassium Level 4.0 mmol/L (3.5-5.1) Chloride Level 107 mmol/L (98-107) Carbon Dioxide Level 21 mmol/L (21-32) Anion Gap 12 (6-14) Blood Urea Nitrogen 39 mg/dL (8-26) Creatinine 2.7 mg/dL (0.7-1.3) Estimated GFR (Cockcroft-Gault) 24.8 BUN/Creatinine Ratio 14 (6-20) Glucose Level 125 mg/dL (70-99) Calcium Level 8.7 mg/dL (8.5-10.1) Total Bilirubin 0.3 mg/dL (0.2-1.0) Aspartate Amino Transf (AST/SGOT) 17 U/L (15-37) Alanine Aminotransferase (ALT/SGPT) 15 U/L (16-63) Alkaline Phosphatase 87 U/L (46-116) Total Protein 7.5 g/dL (6.4-8.2) Albumin 2.8 g/dL (3.4-5.0) Albumin/Globulin Ratio 0.6 (1.0-1.7) Test 01/03/20 11:22 Glucose (Fingerstick) 147 mg/dL (70-99) Laboratory Tests Test 01/02/20 20:52 8/10/20 05:20 01/03/20 07:36 01/03/20 11:22 Glucose (Fingerstick) 152 mg/dL (70-99) 121 mg/dL (70-99) 147 mg/dL (70-99) White Blood Count 9.9 x10^3/uL (4.0-11.0) Red Blood Count 4.28 x10^6/uL (4.30-5.70) Hemoglobin 11.9 g/dL (13.0-17.5) Hematocrit 36.9 % (39.0-53.0) Mean Corpuscular Volume 86 fL (79-100) Mean Corpuscular Hemoglobin 28 pg (25-35) Mean Corpuscular Hemoglobin Concent 32 g/dL (31-37) Red Cell Distribution Width 14.6 % (11.5-14.5) Platelet Count 265 x10^3/uL (140-400) Sodium Level 140 mmol/L (136-145) Potassium Level 4.0 mmol/L (3.5-5.1) Chloride Level 107 mmol/L (98-107) Carbon Dioxide Level 21 mmol/L (21-32) Anion Gap 12 (6-14) Blood Urea Nitrogen 39 mg/dL (8-26) Creatinine 2.7 mg/dL (0.7-1.3) Estimated GFR (Cockcroft-Gault) 24.8 BUN/Creatinine Ratio 14 (6-20) Glucose Level 125 mg/dL (70-99) Calcium Level 8.7 mg/dL (8.5-10.1) Total Bilirubin 0.3 mg/dL (0.2-1.0) Aspartate Amino Transf (AST/SGOT) 17 U/L (15-37) Alanine Aminotransferase (ALT/SGPT) 15 U/L (16-63) Alkaline Phosphatase 87 U/L (46-116) Total Protein 7.5 g/dL (6.4-8.2) Albumin 2.8 g/dL (3.4-5.0) Albumin/Globulin Ratio 0.6 (1.0-1.7) Microbiology 12/31/19 Gram Stain - Final, Resulted 12/31/19 Aerobic and Anaerobic Culture - Preliminary, Resulted 12/31/19 Antimicrobic Susceptibility - Preliminary, Resulted Medications Current Medications Acetaminophen/ Hydrocodone Bitart (Lortab 7.5/325) 1 tab PRN Q6HRS PRN PO MODERATE PAIN 4-6 Last administered on 12/28/19 01:36; Start 12/27/19 at 20:30; Stop 12/28/19 at 01:40; Status DC Temazepam (Restoril) 30 mg PRN QHS PRN PO INSOMNIA Last administered on 12/31/19 21:32; Start 12/27/19 at 20:30 Ropinirole HCl (Requip) 0.5 mg HS PO Last administered on 01/02/20 20:52; Start 12/27/19 at 21:00 Sodium Chloride 1,000 ml @ 100 mls/hr Q10H IV Last administered on 12/29/19 21:34; Start 12/27/19 at 20:30; Stop 12/30/19 at 14:16; Status DC Acetaminophen (Tylenol) 650 mg PRN Q6HRS PRN PO MILD PAIN / TEMP > 100.3'F; Start 12/27/19 at 20:30 Ondansetron HCl (Zofran) 4 mg PRN Q6HRS PRN IVP NAUSEA/VOMITING 1ST CHOICE; Start 12/27/19 at 20:30 Insulin Human Lispro (HumaLOG) 0-5 UNITS TIDWMEALS SQ Last administered on 01/02/20at 12:00; Start 12/28/19 at 08:00 Dextrose (Dextrose 50%-Water Syringe) 12.5 gm PRN Q15MIN PRN IV SEE COMMENTS; Start 12/27/19 at 20:30 Carvedilol (Coreg) 25 mg BIDWMEALS PO Last administered on 12/30/19at 08:08; Start 12/27/19 at 21:00; Stop 12/30/19 at 14:06; Status DC Acetaminophen/ Hydrocodone Bitart (Lortab 7.5/325) 1 tab PRN Q4HRS PRN PO MODERATE PAIN 4-6 Last administered on 01/03/20at 16:15; Start 12/28/19 at 01:45 Piperacillin Sod/ Tazobactam Sod 2.25 gm/Sodium Chloride 50 ml @ 100 mls/hr Q6HRS IV Last administered on 01/03/20at 05:36; Start 12/28/19 at 12:00; Stop 01/03/20 at 11:04; Status DC Linezolid/Dextrose 300 ml @ 300 mls/hr Q12HR IV Last administered on 01/03/20at 09:07; Start 12/28/19 at 21:00 Aspirin (Aspirin Chewable) 81 mg DAILY PO Last administered on 01/03/20 09:10; Start 12/28/19 at 13:00 Atorvastatin Calcium (Lipitor) 40 mg QHS PO Last administered on 01/02/20at 20:53; Start 12/28/19 at 21:00 Clopidogrel Bisulfate (Plavix) 75 mg DAILYWBKFT PO Last administered on 01/03/20 09:10; Start 12/28/19 at 13:00 Gabapentin (Neurontin) 300 mg BID PO Last administered on 01/03/20 09:08; S tart 12/28/19 at 13:00 Labetalol HCl (Trandate) 100 mg BID PO Last administered on 12/30/19at 08:06; Start 12/28/19 at 21:00; Stop 12/30/19 at 14:03; Status DC Linagliptin (Tradjenta) 5 mg DAILY PO Last administered on 12/28/19 12:36; Start 12/28/19 at 13:00; Stop 12/29/19 at 12:27; Status DC Temazepam (Restoril) 30 mg QHS PO ; Start 12/28/19 at 21:00; Status UNV Trazodone HCl (Desyrel) 50 mg QHS PO Last administered on 01/02/20at 20:52; Start 12/28/19 at 21:00 Non-Formulary Medication (Carvedilol (Coreg)) 25 mg BIDWMEALS PO ; Start 12/28/19 at 17:00; Status UNV Glimepiride (Amaryl) 4 mg DAILY PO Last administered on 12/28/19at 12:37; Start 12/28/19 at 13:00; Stop 12/29/19 at 12:27; Status DC Pantoprazole Sodium (Protonix) 40 mg BIDAC PO Last administered on 01/03/20 07:58; Start 12/28/19 at 16:30 Non-Formulary Medication (Ropinirole Hcl ) 0.5 mg HS PO ; Start 12/28/19 at 21:00; Status UNV Hydralazine HCl (Apresoline Inj) 10 mg PRN Q4HRS PRN IVP ELEVATED BP, SEE COMMENTS Last administered on 01/03/20at 11:27; Start 12/28/19 at 17:30 Glimepiride (Amaryl) 2 mg DAILY PO ; Start 12/30/19 at 09:00; Stop 12/29/19 at 12:42; Status DC Oxycodone HCl (OxyCONTIN) 10 mg Q12HR PO Last administered on 01/03/20at 07:59; Start 12/29/19 at 13:00 Multivitamins (Thera M Plus) 1 tab DAILY PO Last administered on 01/03/20 09:08; Start 12/29/19 at 14:00 Ascorbic Acid (Vitamin C) 500 mg DAILY PO Last administered on 01/03/20at 09:08; Start 12/29/19 at 14:00 Lactobacillus Rhamnosus (Culturelle) 1 cap BID PO Last administered on 01/03/20at 09:07; Start 12/29/19 at 21:00 Amlodipine Besylate (Norvasc) 10 mg DAILY PO Last administered on 01/03/20 09:09; Start 12/30/19 at 10:15 Carvedilol (Coreg) 12.5 mg BIDWMEALS PO Last administered on 01/01/20at 17:35; Start 12/30/19 at 17:00; Stop 01/02/20 at 07:52; Status DC Hydralazine HCl (Apresoline) 25 mg TID PO Last administered on 12/31/19at 21:18; Start 12/30/19 at 14:00; Stop 01/01/20 at 08:25; Status DC Isosorbide Mononitrate (Imdur) 30 mg DAILY PO Last administered on 01/02/20at 08:02; Start 12/31/19 at 09:00; Stop 01/02/20 at 14:42; Status DC Cefazolin Sodium 1 gm/Sodium Chloride 500 ml @ 500 mls/hr 1X ONCE IRR Last administered on 12/31/19at 14:37; Start 12/31/19 at 06:00; Stop 12/31/19 at 06:59; Status DC Ondansetron HCl (Zofran) 4 mg PRN Q6HRS PRN IV NAUSEA/VOMITING; Start 12/31/19 at 07:30; Stop 12/31/19 at 16:12; Status DC Fentanyl Citrate (Fentanyl 2ml Vial) 25 mcg PRN Q5MIN PRN IV MILD PAIN 1-3; Start 12/31/19 at 07:30; Stop 12/31/19 at 16:12; Status DC Fentanyl Citrate (Fentanyl 2ml Vial) 50 mcg PRN Q5MIN PRN IV MODERATE TO SEVERE PAIN; Start 12/31/19 at 07:30; Stop 12/31/19 at 16:12; Status DC Morphine Sulfate (Morphine Sulfate) 1 mg PRN Q10MIN PRN IV SEVERE PAIN 7-10; Start 12/31/19 at 07:30; Stop 12/31/19 at 16:12; Status DC Ringer's Solution 1,000 ml @ 30 mls/hr Q24H IV ; Start 12/31/19 at 07:29; Stop 12/31/19 at 16:12; Status DC Lidocaine HCl (Xylocaine-Mpf 1% 2ml Vial) 2 ml PRN 1X PRN ID PRIOR TO IV START; Start 12/31/19 at 07:30; Stop 12/31/19 at 16:12; Status DC Hydromorphone HCl (Dilaudid) 0.5 mg PRN Q10MIN PRN IV SEV PAIN, Second choice; Start 12/31/19 at 07:30; Stop 12/31/19 at 16:12; Status DC Prochlorperazine Edisylate (Compazine) 5 mg PACU PRN PRN IV NAUSEA, MRX1; Start 12/31/19 at 07:30; Stop 12/31/19 at 16:12; Status DC Fentanyl Citrate (Fentanyl 2ml Vial) 100 mcg STK-MED ONCE .ROUTE ; Start 12/31/19 at 13:58; Stop 12/31/19 at 13:58; Status DC Propofol (Diprivan) 200 mg STK-MED ONCE IV ; Start 12/31/19 at 14:04; Stop 12/31/19 at 14:04; Status DC Lidocaine HCl (Lidocaine Pf 2% Vial) 5 ml STK-MED ONCE .ROUTE ; Start 12/31/19 at 14:04; Stop 12/31/19 at 14:04; Status DC Ondansetron HCl (Zofran) 4 mg STK-MED ONCE .ROUTE ; Start 12/31/19 at 14:04; Stop 12/31/19 at 14:05; Status DC Ondansetron HCl (Zofran) 4 mg STK-MED ONCE .ROUTE ; Start 12/31/19 at 14:05; Stop 12/31/19 at 14:06; Status DC Sevoflurane (Ultane) 30 ml STK-MED ONCE IH ; Start 12/31/19 at 14:06; Stop 12/31/19 at 14:06; Status DC Lidocaine HCl (Lidocaine 1% 20ml Vial) 20 ml STK-MED ONCE .ROUTE Last administered on 12/31/19at 14:15; Start 12/31/19 at 14:13; Stop 12/31/19 at 14:14; Status DC Morphine Sulfate (Morphine Sulfate) 2 mg PRN Q2HR PRN IV PAIN Last administered on 01/03/20at 11:14; Start 12/31/19 at 14:45; Stop 01/03/20 at 13:58; Status DC Phenylephrine HCl (PHENYLEPHRINE in 0.9% NACL PF) 1 mg STK-MED ONCE IV ; Start 12/31/19 at 14:40; Stop 12/31/19 at 14:40; Status DC Hydralazine HCl (Apresoline) 50 mg TID PO Last administered on 01/01/20at 20:34; Start 01/01/20 at 09:00; Stop 01/02/20 at 07:52; Status DC Sodium Bicarbonate (Sodium Bicarbonate) 650 mg TID PO Last administered on 01/03/20at 14:36; Start 01/01/20 at 14:00 Carvedilol (Coreg) 25 mg BIDWMEALS PO Last administered on 01/03/20at 09:09; Start 01/02/20 at 08:00 Hydralazine HCl (Apresoline) 100 mg TID PO Last administered on 01/03/20at 1 4:37; Start 01/02/20 at 08:00 Isosorbide Mononitrate (Imdur) 30 mg 1X PO ; Start 01/02/20 at 14:45; Status Cancel Isosorbide Mononitrate (Imdur) 60 mg DAILY PO Last administered on 01/03/20at 09:08; Start 01/03/20 at 09:00 Isosorbide Mononitrate (Imdur) 30 mg 1X ONCE PO Last administered on 01/02/20at 14:59; Start 01/02/20 at 15:00; Stop 01/02/20 at 15:01; Status DC Meropenem 500 mg/ Sodium Chloride 50 ml @ 100 mls/hr Q8HRS IV Last administered on 01/03/20at 14:37; Start 01/03/20 at 14:00 Morphine Sulfate (Morphine Sulfate) 4 mg PRN Q4HRS PRN IV PAIN Last administered on 01/03/20at 14:37; Start 01/03/20 at 14:00 Active Scripts Active Atorvastatin Calcium 40 Mg Tablet 40 Mg PO QHS 30 Days Plavix (Clopidogrel Bisulfate) 75 Mg Tablet 75 Mg PO DAILYWBKFT Reported Tradjenta (Linagliptin) 5 Mg Tablet 5 Mg PO DAILY Amaryl (Glimepiride) 4 Mg Tablet 1 Tab PO BID Trazodone Hcl 50 Mg Tablet 1 Tab PO QHS Gabapentin (Gabapentin) 300 Mg Capsule 300 Mg PO BID Children's Aspirin (Aspirin) 81 Mg Tab.chew 1 Tab PO DAILY 30 Days Coreg (Carvedilol) 25 Mg Tablet 25 Mg PO BIDWMEALS Ropinirole Hcl 0.5 Mg Tablet 0.5 Mg PO HS Labetalol Hcl 100 Mg Tablet 1 Tab PO BID Protonix (Pantoprazole Sodium) 20 Mg Tablet.dr 2 Tab PO BID Temazepam 30 Mg Capsule 1 Cap PO QHS Vitals/I & O Vital Sign - Last 24 Hours 01/02/20 01/02/20 01/02/20 01/02/20 17:18 19:00 19:50 19:51 Temp 98.2 98.2 Pulse 100 95 95 Resp 20 18 B/P (MAP) 175/100 195/107 (136) 195/107 Pulse Ox 96 96 O2 Delivery Room Air Room Air 01/02/20 01/02/20 01/02/20 01/02/20 20:23 20:24 20:53 20:54 Pulse 95 Resp 18 18 B/P (MAP) 195/107 Pulse Ox 96 96 O2 Delivery Room Air Room Air Room Air 01/02/20 01/03/20 01/03/20/10/20 23:05 00:56 01:31 02:00 Temp 97.8 97.8 Pulse 109 Resp 18 18 B/P (MAP) 187/98 (127) Pulse Ox 97 97 97 95 O2 Delivery Room Air Room Air Room Air Room Air 01/03/20 01/03/20 01/03/20 01/03/20 03:05 05:35 06:20 07:00 Temp 98.4 98.2 98.4 98.2 Pulse 108 112 Resp 18 18 18 17 B/P (MAP) 182/102 (128) 196/115 (142) Pulse Ox 95 95 95 95 O2 Delivery Room Air Room Air Room Air Room Air 01/03/20 01/03/20 01/03/20 01/03/20 07:50 07:59 09:08 09:08 Pulse 112 112 B/P (MAP) 196/115 196/115 O2 Delivery Room Air Room Air 01/03/20 01/03/20 01/03/20 01/03/20 09:09 09:09 09:10 10:51 Pulse 112 112 B/P (MAP) 196/115 196/115 O2 Delivery Room Air Room Air 01/03/20 01/03/20 01/03/20 01/03/20 11:00 11:14 11:27 12:00 Temp 98.1 98.1 Pulse 94 94 Resp 17 B/P (MAP) 181/97 (125) 181/97 Pulse Ox 95 O2 Delivery Room Air Room Air Room Air 01/03/20 01/03/20 01/03/20 01/03/20 12:00 14:37 14:37 15:00 Temp 97.6 97.6 Pulse 94 94 Resp 17 B/P (MAP) 168/93 168/93 (118) Pulse Ox 96 O2 Delivery Room Air Room Air Room Air 01/03/20 01/03/20 16:15 16:18 O2 Delivery Room Air Room Air Intake and Output 01/02/20 01/02/20 01/03/20 15:00 23:00 07:00 Intake Total 300 ml 620 ml 50 ml Output Total 0 ml Balance 300 ml 620 ml 50 ml Justicifation of Admission Dx: Justifications for Admission: Justification of Admission Dx: N/A Acute Renal Failure: Serum Cr > 4mg/dL YOANA BROWN MD Jan 03, 2020 16:45
[2020-01-03 19:00] VITALS: BP 186/102
[2020-01-03] MEDS: traZODone 50 MG TABLET. PO SCH (21:32)
[2020-01-03] MEDS: rOPINIRole 0.25 MG TABLET. PO SCH (21:32)
[2020-01-03] MEDS: ATORVASTATIN CALCIUM 40 MG TABLET. PO SCH (21:32)
[2020-01-03] MEDS: TEMAZEPAM 15 MG CAPSULE PO PRN (21:41)
[2020-01-03 23:00] VITALS: BP 190/113
[2020-01-04] MEDS: hydrALAZINE 20 MG/ML VIAL. IVP PRN ×4 (00:04→15:33)
[2020-01-04 03:00] VITALS: BP 192/103
[2020-01-04] MEDS: MORPHINE SULFATE 4 MG/ML VIAL. IV PRN ×5 (03:42→23:57)
[2020-01-04] MEDS: MEROPENEM 500 MG in IV NORMAL SALINE 50ML 50 ML IV SCH ×3 (06:07→21:29)
[2020-01-04 07:35] VITALS: BP 212/116
[2020-01-04] MEDS: INSULIN LISPRO 300 UNITS/3 ML VIAL. SQ SCH ×3 (07:51→16:51)
--- NOTE | 2020-01-04 08:02 | PDOC ---
Infectious Disease Note Subjective: Subjective Patient without complaints Diarrhea improving Vital Signs: Vital Signs Vital Signs Date Time Temp Pulse Resp B/P (MAP) Pulse Ox O2 Delivery O2 Flow Rate FiO2 01/04/20 07:35 98.1 116 18 212/116 (148) 94 Room Air 98.1 Physical Exam: PHYSICAL EXAM GENERAL: Propped up in bed, alert in NAD HEENT: Oral cavity pink, moist. No thrush. NECK: Supple. LUNGS: Clear to auscultation HEART: S1, S2 regular. ABDOMEN: Soft and nontender EXTREMITIES: Right foot bandaged, left foot dressing had been taken down earlier by vascular team Left first toe incision dry and intact, no drainage, mild erythema and swelling, improving slowly SKIN: without generalized rash. NEUROLOGIC: Alert and appropriate. No focal neurologic deficit. PIV Medications: Inpatient Meds: Current Medications Medications (Trade) Dose Ordered Sig/Jerri Start Time Stop Time Status Last Admin Dose Admin Acetaminophen (Tylenol) 650 mg PRN Q6HRS PRN 12/27/19 20:30 Acetaminophen/ Hydrocodone Bitart (Lortab 7.5/325) 1 tab PRN Q4HRS PRN 12/28/19 01:45 01/03/20 16:15 1 TAB Amlodipine Besylate (Norvasc) 10 mg DAILY 12/30/19 10:15 01/03/20 09:09 10 MG Ascorbic Acid (Vitamin C) 500 mg DAILY 12/29/19 14:00 01/03/20 09:08 500 MG Aspirin (Aspirin Chewable) 81 mg DAILY 12/28/19 13:00 01/03/20 09:10 81 MG Atorvastatin Calcium (Lipitor) 40 mg QHS 12/28/19 21:00 01/03/20 21:32 40 MG Carvedilol (Coreg) 25 mg BIDWMEALS 01/02/20 08:00 01/03/20 16:58 25 MG Cefazolin Sodium 1 gm/Sodium Chloride 500 ml @ 500 mls/hr 1X ONCE 12/31/19 06:00 12/31/19 06:59 DC 12/31/19 14:37 Clopidogrel Bisulfate (Plavix) 75 mg DAILYWBKFT 12/28/19 13:00 01/03/20 09:10 75 MG Dextrose (Dextrose 50%-Water Syringe) 12.5 gm PRN Q15MIN PRN 12/27/19 20:30 Fentanyl Citrate (Fentanyl 2ml Vial) 100 mcg STK-MED ONCE 12/31/19 13:58 12/31/19 13:58 DC Gabapentin (Neurontin) 300 mg BID 12/28/19 13:00 01/03/20 21:32 300 MG Glimepiride (Amaryl) 2 mg DAILY 12/30/19 09:00 12/29/19 12:42 DC Hydralazine HCl (Apresoline Inj) 10 mg PRN Q4HRS PRN 12/28/19 17:30 01/04/20 03:42 10 MG Hydralazine HCl (Apresoline) 100 mg TID 01/02/20 08:00 01/03/20 21:32 100 MG Hydromorphone HCl (Dilaudid) 0.5 mg PRN Q10MIN PRN 12/31/19 07:30 12/31/19 16:12 DC Insulin Human Lispro (HumaLOG) 0-5 UNITS TIDWMEALS 12/28/19 08:00 01/02/20 12:00 2 UNITS Isosorbide Mononitrate (Imdur) 30 mg 1X ONCE 01/02/20 15:00 01/02/20 15:01 DC 01/02/20 14:59 30 MG Labetalol HCl (Trandate) 100 mg BID 12/28/19 21:00 12/30/19 14:03 DC 12/30/19 08:06 100 MG Lactobacillus Rhamnosus (Culturelle) 1 cap BID 12/29/19 21:00 01/03/20 21:32 1 CAP Lidocaine HCl (Lidocaine 1% 20ml Vial) 20 ml STK-MED ONCE 12/31/19 14:13 12/31/19 14:14 DC 12/31/19 14:15 5 ML Lidocaine HCl (Lidocaine Pf 2% Vial) 5 ml STK-MED ONCE 12/31/19 14:04 12/31/19 14:04 DC Lidocaine HCl (Xylocaine-Mpf 1% 2ml Vial) 2 ml PRN 1X PRN 12/31/19 07:30 12/31/19 16:12 DC Linagliptin (Tradjenta) 5 mg DAILY 12/28/19 13:00 12/29/19 12:27 DC 12/28/19 12:36 5 MG Linezolid/Dextrose 300 ml @ 300 mls/hr Q12HR 12/28/19 21:00 01/03/20 22:44 300 MLS/HR Meropenem 500 mg/ Sodium Chloride 50 ml @ 100 mls/hr Q8HRS 01/03/20 14:00 01/04/20 06:07 100 MLS/HR Morphine Sulfate (Morphine Sulfate) 4 mg PRN Q4HRS PRN 01/03/20 14:00 01/04/20 03:42 4 MG Multivitamins (Thera M Plus) 1 tab DAILY 12/29/19 14:00 01/03/20 09:08 1 TAB Non-Formulary Medication (Carvedilol (Coreg)) 25 mg BIDWMEALS 12/28/19 17:00 UNV Non-Formulary Medication (Ropinirole Hcl ) 0.5 mg HS 12/28/19 21:00 UNV Ondansetron HCl (Zofran) 4 mg STK-MED ONCE 12/31/19 14:05 12/31/19 14:06 DC Oxycodone HCl (OxyCONTIN) 10 mg Q12HR 12/29/19 13:00 01/03/20 21:32 10 MG Pantoprazole Sodium (Protonix) 40 mg BIDAC 12/28/19 16:30 01/03/20 16:57 40 MG Phenylephrine HCl (PHENYLEPHRINE in 0.9% NACL PF) 1 mg STK-MED ONCE 12/31/19 14:40 12/31/19 14:40 DC Piperacillin Sod/ Tazobactam Sod 2.25 gm/Sodium Chloride 50 ml @ 100 mls/hr Q6HRS 12/28/19 12:00 01/03/20 11:04 DC 01/03/20 05:36 100 MLS/HR Prochlorperazine Edisylate (Compazine) 5 mg PACU PRN PRN 12/31/19 07:30 12/31/19 16:12 DC Propofol (Diprivan) 200 mg STK-MED ONCE 12/31/19 14:04 12/31/19 14:04 DC Ringer's Solution 1,000 ml @ 30 mls/hr Q24H 12/31/19 07:29 12/31/19 16:12 DC Ropinirole HCl (Requip) 0.5 mg HS 12/27/19 21:00 01/03/20 21:32 0.5 MG Sevoflurane (Ultane) 30 ml STK-MED ONCE 12/31/19 14:06 12/31/19 14:06 DC Sodium Bicarbonate (Sodium Bicarbonate) 650 mg TID 01/01/20 14:00 01/03/20 21:31 650 MG Sodium Chloride 1,000 ml @ 100 mls/hr Q10H 12/27/19 20:30 12/30/19 14:16 DC 12/29/19 21:34 100 MLS/HR Temazepam (Restoril) 30 mg QHS 12/28/19 21:00 UNV Trazodone HCl (Desyrel) 50 mg QHS 12/28/19 21:00 01/03/20 21:32 50 MG Labs: Lab Laboratory Tests Test 01/03/20 11:22 01/03/20 16:54 01/03/20 20:27 01/04/20 07:47 Glucose (Fingerstick) 147 mg/dL (70-99) 134 mg/dL (70-99) 136 mg/dL (70-99) 146 mg/dL (70-99) Micro RUN DATE: 01/03/20 [facility] *LIVE* PAGE 1 RUN TIME: 1054 Specimen Inquiry PATIENT: BERTRAND COLMENARES ACCT: [id number] LOC: [address] [place] [address] U: [id number] AGE/SX: 54/M ROOM: 538 RE12/27/[address]: SAMM PRASAD MD : 1965 BED: 1 DIS: STATUS: ADM IN TLOC: SPEC #: [id number] MIKIE: 12/31/19 STATUS: RES REQ #: [id number] RECD: 01/01/[address]: SAMM PRASAD MD SOURCE: ABSCESS ENTR: 01/01/[address]: CRISTY CHEEMA MD SPDESC: DULCE MARIA SRIVASTAVA MD, STEWART R DO KATRAPATI, PRASHANTH S MD KELLING, DOUGLAS M DO NAIR, VENU S MD ORDERED: ANAER/AEROB/ARIANA COMMENTS: LT GREAT TOE SWAB ------ ------ Procedure Result GRAM STAIN Final Final NO ORGANISMS SEEN. SQUAMOUS EPI CELL:NONE SEEN PMN (WBCs):RARE Unless otherwise specified, Testing Performed by: [address] [address] For Inquires, the Physician may contact the Microbiology department at [phone] ANAEROBIC-AEROBIC CULTURE Preliminary Preliminary FEW GRAM NEGATIVE RODS on 01/02/20 at 1016 FINAL ID= [SERRATIA MARCESCENS] RARE GRAM NEGATIVE RODS on 01/03/20 at 1049 FINAL ID= [PSEUDOMONAS AERUGINOSA] SERRATIA MARCESCENS PSEUDOMONAS AERUGINOSA ANTIMICROBIAL SUSCEPTIBILITY Preliminary Comment NEG IZA 56 SERRATIA MARCESCENS ANTIBIOTIC RESULT INTERPRETATION AMPICILLIN/SULBACTAM >16/8 R AMIKACIN <=16 S AMPICILLIN >16 R AMOXICILLIN/K CLAVULANATE >16/8 R AZTREONAM <=4 S CEFTRIAXONE 32 R CEFTAZIDIME >16 R CEFOTAXIME >32 R CEFOXITIN 16 R* CONTINUED ON NEXT PAGE RUN DATE: 01/03/20 [facility] *LIVE* PAGE 2 RUN TIME: 1054 Specimen Inquiry SPEC: [id number] PATIENT: BERTRAND COLMENARES [id number] (Continued) Procedure Result ANTIMICROBIAL SUSCEPTIBILITY Preliminary (continued) CIPROFLOXACIN <=0.25 S CEFEPIME <=2 S CEFUROXIME >16 R CEFTAZIDIME/AVIBACTAM <=4 S ERTAPENEM <=0.5 S GENTAMICIN <=2 S LEVOFLOXACIN <=0.5 S MEROPENEM <=1 S PIPERACILLIN/TAZOBACTAM <=8 S TRIMETHOPRIM/SULFAMETHOXAZOLE <=0.5/9.5 S TETRACYCLINE >8 R TOBRAMYCIN <=2 S Unless otherwise specified, Testing Performed by: [address] [address] For Inquires, the Physician may contact the Microbiology department at [phone] Objective: Assessment: Left big toe chronic ulcer with bone scan positive for osteomyelitis. s/p amputation, closed on 12/[address] Cheema. Culture + serratia and GISELLE Right big toe ulcer, superficial. Bone scan is positive for osteomyelitis, but there is no clinical evidence of chronic or deep wound on to the right big toe. s/p debridement of necrotic skin & subcutaneous tissue on 12/30. Right foot cellulitis. Peripheral arterial disease. Coronary artery disease. Diabetes. Hypertension. Noncompliance. LEATHA on CKD, renal following Diarrhea Plan: Plan of Care cont merrem DC Zyvox f/u C diff PCR PSAE susc pending Follow-up cultures Local wound care as directed Probiotics d/w AURELIA DACOSTA MD Jan 04, 2020 08:02
--- NOTE | 2020-01-04 08:31 | PDOC ---
Provider Note Date of Service: DATE: 01/04/20 TIME: 08:30 Provider Note Provider Note vascular S: Patient seen and examined in room, patient states he has less pain today. O: Awake and alert Afebrile Right toe to foot with granulation tissue, periwound intact. Left first toe incision dry and intact, there is some mild erythema and swelling, this has improved since yesterday's evaluation A/P: Left first toe chronic open wound with exposed bone, necrotic tissue and osteomyelitis. Right first toe tip open wound with superficial necrotic tissue and no exposed bone. POD #4 1. Left first toe partial amputation done in a closed fashion. 2. Right first toe sharp excisional debridement removing necrotic skin and subcutaneous tissue, measurements after debridement were approximately 1.5 cm in length x 1.5 cm in width x superficial in depth. Recommend daily dry gauze dressing to left first toe amputation site. Follow wound care instructions for wound care to right first toe. Patient may be up ad thu. with postop shoes. Recommend patient elevate legs while in bed. Abx per Id Patient will need to follow-up in [address] Cheema. Justicifation of Admission Dx: Justifications for Admission: Justification of Admission Dx: N/A Acute Renal Failure: Serum Cr > 4mg/dL SIL RAMOS APRN Jan 04, 2020 08:31
[2020-01-04] MEDS: ISOSORBIDE MONONITRATE ER 30 MG TAB.ER.24H PO SCH (09:00)
[2020-01-04] MEDS: SODIUM BICARBONATE 650 MG TABLET. PO SCH ×3 (09:00→21:27)
[2020-01-04] MEDS: GABAPENTIN 300 MG CAPSULE. PO SCH ×2 (09:00→21:27)
[2020-01-04] MEDS: ASPIRIN CHEWABLE 81 MG TABLET. PO SCH (09:00)
[2020-01-04] MEDS: LACTOBACILLUS RHAMNOSUS GG 1 CAPSULE. PO SCH ×2 (09:00→21:28)
[2020-01-04] MEDS: oxyCODONE ER 10 MG TAB.ER.12H PO SCH ×2 (09:01→21:27)
[2020-01-04] MEDS: PANTOPRAZOLE 40 MG TABLET.DR. PO SCH ×2 (09:01→16:22)
[2020-01-04] MEDS: MULTIVITAMIN with MINERAL TABLET. PO SCH (09:01)
[2020-01-04] MEDS: CARVEDILOL 12.5 MG TABLET. PO SCH ×2 (09:01→16:23)
[2020-01-04] MEDS: ASCORBIC ACID 500 MG TABLET PO SCH (09:02)
[2020-01-04] MEDS: amLODIPine BESYLATE 10 MG TABLET PO SCH (09:02)
[2020-01-04] MEDS: CLOPIDOGREL BISULFATE 75 MG TABLET PO SCH (09:02)
--- NOTE | 2020-01-04 10:16 | NUR ---
SW following. Discussed with RN, continue IV meropenem, awaiting cultures. TORY will continue to follow. Addendum: 01/04/20 at 1613 by PING SPEARS TORY Referral for [facility] referral. TORY spoke with Dr. Dougherty to determine if [facility] is appropriate for pt -pt on IV abx and wound care. TORY advised pt can do home infusion, and wound care at wound clinic/ with home health. Dr. Dougherty is okay for discharge home, rather than [facility] referral. SW to speak with pt to discuss home infusion/ home health. TORY will continue to follow.
[2020-01-04 11:00] VITALS: BP 184/110
--- NOTE | 2020-01-04 11:11 | PDOC ---
Renal-Progress Notes Subjective Notes Notes NO NEW COMPLAINTS History of Present Illness Hx of present illness STABLE Vitals Vitals Vital Signs Date Time Temp Pulse Resp B/P (MAP) Pulse Ox O2 Delivery O2 Flow Rate FiO2 01/04/20 09:53 16 Room Air 01/04/20 09:18 116 212/116 01/04/20 07:35 98.1 94 98.1 Weight Weight [ ] I.O. Intake and Output Intake and Output 01/04/20 07:00 Intake Total 850 ml Balance 850 ml Intake Oral 150 ml IV Total 700 ml # Voids 1 Labs Labs Laboratory Tests Test 01/03/20 11:22 01/03/20 16:54 01/03/20 20:27 01/04/20 07:47 Glucose (Fingerstick) 147 mg/dL (70-99) 134 mg/dL (70-99) 136 mg/dL (70-99) 146 mg/dL (70-99) Micro Micro Microbiology 12/31/19 Gram Stain - Final, Resulted 12/31/19 Aerobic and Anaerobic Culture - Preliminary, Resulted 12/31/19 Antimicrobic Susceptibility - Preliminary, Resulted Review of Systems Constitutional: yes: alert Ears/Nose/Throat: Yes: no symptom reported Pulmonary: Yes no symptom reported Cardiovascular: Yes no symptom reported Gastrointestional: Yes: no symptom reported Genitourinary: Yes: no symptom reported Musculoskeletal: Yes: no symptom reported Psychiatric/Neurological: Yes: no symptom reported Endocrine: Yes: no symptom reported Hematologic/Lymphatic: Yes: no symptom reported Physical Exam General Appearance: no apparent distress Skin: warm Respiratory: bilateral CTA Heart: S1S2 Abdomen: soft, bowel sounds present Genitourinary: bladder flat Neurology: alert, oriented, follow commands Musculoskeletal: Other Assessment Assessment IMP LEATHA-RESOLVED WITH CR DOWN TO 2.7-HX OF LEATHA NEEDING HD COUPLE YEARS AGO WHILE AT [facility] CKD STATGE 4-CR AT BASELINE NOW L BIG TOE ULCER AND OSTEOMYELITIS-S/P AMP RIGHT FOOT CELLULITIS DM II HTN PLAN WOUND CARE ANTIBIOTICS RENAL FXN STABLE NOW ENC PT TO KEEP OP APPT AT D/C WILL FOLLOW PAT GARRISON MD Jan 04, 2020 11:11
--- NOTE | 2020-01-04 12:48 | PN ---
DATE: 01/04/2020 SUBJECTIVE: The patient is sitting in his recliner with his feet up. He is awake, alert, continued to complain of pain. The blood pressure continued to be extremely high despite all the antihypertensive medication. PHYSICAL EXAMINATION: GENERAL: When I examined him, he looked pale, but no jaundice, cyanosis or thyromegaly. No jugular venous distention. No limb edema. VITAL SIGNS: His heart rate was 116, blood pressure was 112/116, temperature was 98.1, respiratory rate was 16, and oxygen saturation was 94%. HEAD, EYES, EARS, NOSE, AND THROAT: Showed normocephalic, atraumatic. NECK: Supple. CARDIAC: Normal first and second heart sounds. No gallop or murmur. CHEST: Clear to auscultation. No crepitation or rhonchi. ABDOMEN: Distended, soft, and nontender. NEUROLOGIC: He was awake, alert, responding appropriately. He moves all extremities without difficulty. His intake was 970, no output was recorded. LABORATORY DATA: As of yesterday, his BUN was 39, creatinine 2.7. His H and H was 12 and 36 with normal white cell count and platelets. His wound culture grew Escherichia marcescens. ASSESSMENT: 1. Diarrhea is subsiding and the result of C. diff toxin is still pending at the time of this dictation. 2. Infected right foot and chronic wound to the left big toe with cellulitis and osteomyelitis detected on bone scan. He is currently on meropenem. He underwent partial amputation of his left big toe and excisional debridement of his right big toe. 3. Coronary artery disease, status post percutaneous coronary intervention with stent deployment to the left anterior descending and right coronary artery. 4. Chronic systolic congestive heart failure with ischemic cardiomyopathy, ejection fraction 35% on his most recent echocardiogram. 5. Acute on chronic kidney injury. Creatinine came down from 5.2 to 2.7. 6. Hypertension. Continue to be suboptimally controlled despite being on 4 antihypertensive medications. His renal duplex ultrasound showed no evidence of renal artery stenosis. 7. Hyperlipidemia. 8. Type 2 diabetes mellitus. He is now off of all his oral hypoglycemic agent. PLAN: To discontinue the amlodipine. I started him on Procardia. Continue with wound care. Continue IV antibiotic. I would consult the patient case coordinator to see whether he qualifies to go to [facility]. SAMM PRASAD MD DR: OH/jose JOB#: [id number] / [id number]
[2020-01-04] MEDS: HYDROcodone/APAP 7.5/325MG 1 TAB TABLET PO PRN ×2 (12:55→22:51)
--- NOTE | 2020-01-04 14:22 | PDOC ---
CARDIO Progress Notes Date and Time Date of Service 01/04/20 Time of Evaluation 1410 Subjective Subjective: No Chest Pain, No Palpitations, Other (complains of SOA) Vitals Vitals Vital Signs Date Time Temp Pulse Resp B/P (MAP) Pulse Ox O2 Delivery O2 Flow Rate FiO2 01/04/20 14:05 16 Room Air 01/04/20 14:01 106 184/110 01/04/20 11:00 98.2 96 98.2 Weight Weight [ ] Input and Output Intake and Output Intake and Output 01/04/20 07:00 Intake Total 850 ml Balance 850 ml Intake Oral 150 ml IV Total 700 ml # Voids 1 Laboratory Labs Laboratory Tests Test 01/03/20 16:54 01/03/20 20:27 01/04/20 07:47 01/04/20 11:48 Glucose (Fingerstick) 134 mg/dL (70-99) 136 mg/dL (70-99) 146 mg/dL (70-99) 163 mg/dL (70-99) Microbiology Micro Microbiology 12/31/19 Gram Stain - Final, Resulted 12/31/19 Aerobic and Anaerobic Culture - Preliminary, Resulted 12/31/19 Antimicrobic Susceptibility - Preliminary, Resulted Review of Systems Constitutional: yes: alert Ears/Nose/Throat: Yes: no symptom reported Pulmonary: Yes no symptom reported Cardiovascular: Yes no symptom reported Gastrointestional: Yes: no symptom reported Genitourinary: Yes: no symptom reported Musculoskeletal: Yes: no symptom reported Psychiatric/Neurological: Yes: no symptom reported Endocrine: Yes: no symptom reported Hematologic/Lymphatic: Yes: no symptom reported Physical Exam HEENT: Neck Supple W Full Motion Chest: Symmetric LUNGS: Clear to Auscultation Heart: RRR (SR) Abdomen: Soft N/T Extremities: No Edema, No Calf Tenderness Neurology: alert, oriented, follow commands Assessment Assessment 1. Diabetic foot ulcers/osteomyelitis. S/p left first toe partial amputation and right first toe debridement. Followed by wound care. 2. Recent mechanical fall. No syncope 3. Severe RLE PAD with claudication: noted per duplex. 2+ right DP and 1+ left DP. Followed by vascular surgery. 4. Mild acute on chronic systolic CHF with ICM: prior EF 30-35%. Lasis held with LEATHA. C/o SOA. Will obtain CXR and consider Lasix therapy 5. CAD: past stents. No chest pain. 6. HTN urgency; labile. Nifedipine added, but not ideal with severe cardiomyopathy. Will add clonidine 7. HLP 8. DM 9. LEATHA on CKD: Cr improving Justicifation of Admission Dx: Justifications for Admission: Justification of Admission Dx: N/A Acute Renal Failure: Serum Cr > 4mg/dL KAMILA VILLATORO APRN Jan 04, 2020 14:22
[2020-01-04 15:38] VITALS: BP 181/103
[2020-01-04] MEDS: cloNIDine HCL 0.1 MG TABLET PO SCH ×2 (16:22→21:28)
[2020-01-04] MEDS ORDERED: FUROSEMIDE 20 MG/2 ML VIAL. IVP ONE (16:30)
--- NOTE | 2020-01-04 17:42 | RAD ---
INDICATION: Reason: SOA 538 / Spl. Instructions: / History: COMPARISON: March 21, 2019 FINDINGS: Single view of chest obtained. Mild interstitial opacities bilaterally. Cardiac silhouette is mildly enlarged. Linear high density structure is again seen projecting over the left upper chest and could be foreign body in the soft tissues or calcification. IMPRESSION: * Mild interstitial opacities bilaterally which can be seen with mild edema or mild interstitial infiltrate. Electronically signed by: Neno Shields MD (01/04/2020 5:39 PM) [id number]
[2020-01-04 19:00] VITALS: BP 192/106
[2020-01-04] MEDS: traZODone 50 MG TABLET. PO SCH (21:27)
[2020-01-04] MEDS: ATORVASTATIN CALCIUM 40 MG TABLET. PO SCH (21:28)
[2020-01-04] MEDS: rOPINIRole 0.25 MG TABLET. PO SCH (21:29)
[2020-01-04 23:00] VITALS: BP 167/107
[2020-01-05 03:00] VITALS: BP 148/97
[2020-01-05] MEDS: MEROPENEM 500 MG in IV NORMAL SALINE 50ML 50 ML IV SCH (05:42)
[2020-01-05] MEDS: MORPHINE SULFATE 4 MG/ML VIAL. IV PRN ×4 (05:43→22:04)
[2020-01-05] MEDS: cloNIDine HCL 0.1 MG TABLET PO SCH ×3 (05:59→21:54)
[2020-01-05 06:51] LABS: HEMATOCRIT 33.4 % (39.0-53.0); RED BLOOD COUNT 3.88 x10^6/uL (4.30-5.70); WHITE BLOOD COUNT 7.7 x10^3/uL (4.0-11.0)
[2020-01-05 07:14] LABS: ALBUMIN 2.5 g/dL (3.4-5.0); ALBUMIN/GLOBULIN RATIO 0.6 (1.0-1.7); CALCIUM 8.6 mg/dL (8.5-10.1); CREATININE 3.1 mg/dL (0.7-1.3); GFR 21.2; POTASSIUM 3.8 mmol/L (3.5-5.1); TOTAL BILIRUBIN 0.3 mg/dL (0.2-1.0); TOTAL PROTEIN 6.9 g/dL (6.4-8.2)
[2020-01-05 07:38] VITALS: BP 146/87
[2020-01-05] MEDS: INSULIN LISPRO 300 UNITS/3 ML VIAL. SQ SCH ×3 (07:46→17:00)
[2020-01-05] MEDS: HYDROcodone/APAP 7.5/325MG 1 TAB TABLET PO PRN ×3 (08:10→21:53)
[2020-01-05] MEDS: CLOPIDOGREL BISULFATE 75 MG TABLET PO SCH (08:10)
[2020-01-05] MEDS: CARVEDILOL 12.5 MG TABLET. PO SCH ×2 (08:10→17:29)
[2020-01-05] MEDS: PANTOPRAZOLE 40 MG TABLET.DR. PO SCH ×2 (08:10→17:26)
[2020-01-05] MEDS: GABAPENTIN 300 MG CAPSULE. PO SCH ×2 (08:37→21:53)
[2020-01-05] MEDS: ASPIRIN CHEWABLE 81 MG TABLET. PO SCH (08:37)
[2020-01-05] MEDS: oxyCODONE ER 10 MG TAB.ER.12H PO SCH ×2 (08:37→21:54)
[2020-01-05] MEDS: SODIUM BICARBONATE 650 MG TABLET. PO SCH ×3 (08:37→21:53)
[2020-01-05] MEDS: LACTOBACILLUS RHAMNOSUS GG 1 CAPSULE. PO SCH ×2 (08:37→21:53)
[2020-01-05] MEDS: MULTIVITAMIN with MINERAL TABLET. PO SCH (08:37)
[2020-01-05] MEDS: ASCORBIC ACID 500 MG TABLET PO SCH (08:37)
[2020-01-05] MEDS: ISOSORBIDE MONONITRATE ER 30 MG TAB.ER.24H PO SCH (08:38)
--- NOTE | 2020-01-05 09:56 | PDOC ---
Provider Note Date of Service: DATE: 01/05/20 TIME: 09:53 Provider Note Provider Note Vascular S: Patient seen and examined in room, patient states he is doing well. Seen with Dr. Cheema. O: Awake and alert Afebrile Right toe wound dry. Left first toe incision dry and intact, there is minimal erythema today, this has improved since yesterday's evaluation A/P: Left first toe chronic open wound with exposed bone, necrotic tissue and osteomyelitis. Right first toe tip open wound with superficial necrotic tissue and no exposed bone. POD #5 1. Left first toe partial amputation done in a closed fashion. 2. Right first toe sharp excisional debridement removing necrotic skin and subcutaneous tissue, measurements after debridement were approximately 1.5 cm in length x 1.5 cm in width x superficial in depth. Recommend daily dry gauze dressing to left first toe amputation site. Follow wound care instructions for wound care to right first toe. Patient may be up ad thu. with postop shoes. Recommend patient elevate legs while in bed. Abx per Id Follow up in wound care Patient will need to follow-up in 2 [address] Cheema. Will sign off. Justicifation of Admission Dx: Justifications for Admission: Justification of Admission Dx: N/A Acute Renal Failure: Serum Cr > 4mg/dL SIL RAMOS APRN Jan 05, 2020 09:56
--- NOTE | 2020-01-05 10:00 | PDOC ---
Infectious Disease Note Subjective: Subjective Patient without complaints Diarrhea improving Vital Signs: Vital Signs Vital Signs Date Time Temp Pulse Resp B/P (MAP) Pulse Ox O2 Delivery O2 Flow Rate FiO2 01/05/20 09:51 Room Air 01/05/20 08:38 98 146/87 01/05/20 07:38 97.6 20 96 97.6 Physical Exam: PHYSICAL EXAM GENERAL: Propped up in bed, alert in NAD HEENT: Oral cavity pink, moist. No thrush. NECK: Supple. LUNGS: Clear to auscultation HEART: S1, S2 regular. ABDOMEN: Soft and nontender EXTREMITIES: Right foot bandaged, left foot dressing had been taken down earlier by vascular team Left first toe incision dry and intact, no drainage, mild erythema and swelling, improving slowly SKIN: without generalized rash. NEUROLOGIC: Alert and appropriate. No focal neurologic deficit. PIV Medications: Inpatient Meds: Current Medications Medications (Trade) Dose Ordered Sig/Jerri Start Time Stop Time Status Last Admin Dose Admin Acetaminophen (Tylenol) 650 mg PRN Q6HRS PRN 12/27/19 20:30 Acetaminophen/ Hydrocodone Bitart (Lortab 7.5/325) 1 tab PRN Q4HRS PRN 12/28/19 01:45 01/05/20 08:10 1 TAB Amlodipine Besylate (Norvasc) 10 mg DAILY 12/30/19 10:15 01/04/20 09:35 DC 01/04/20 09:02 10 MG Ascorbic Acid (Vitamin C) 500 mg DAILY 12/29/19 14:00 01/05/20 08:37 500 MG Aspirin (Aspirin Chewable) 81 mg DAILY 12/28/19 13:00 01/05/20 08:37 81 MG Atorvastatin Calcium (Lipitor) 40 mg QHS 12/28/19 21:00 01/04/20 21:28 40 MG Carvedilol (Coreg) 25 mg BIDWMEALS 01/02/20 08:00 01/05/20 08:10 25 MG Cefazolin Sodium 1 gm/Sodium Chloride 500 ml @ 500 mls/hr 1X ONCE 12/31/19 06:00 12/31/19 06:59 DC 12/31/19 14:37 Clonidine HCl (Catapres) 0.1 mg Q8HRS 01/04/20 16:30 01/05/20 05:59 0.1 MG Clopidogrel Bisulfate (Plavix) 75 mg DAILYWBKFT 12/28/19 13:00 01/05/20 08:10 75 MG Dextrose (Dextrose 50%-Water Syringe) 12.5 gm PRN Q15MIN PRN 12/27/19 20:30 Fentanyl Citrate (Fentanyl 2ml Vial) 100 mcg STK-MED ONCE 12/31/19 13:58 12/31/19 13:58 DC Furosemide (Lasix) 20 mg 1X ONCE 01/04/20 16:30 01/04/20 16:31 DC 01/04/20 16:22 20 MG Gabapentin (Neurontin) 300 mg BID 12/28/19 13:00 01/05/20 08:37 300 MG Glimepiride (Amaryl) 2 mg DAILY 12/30/19 09:00 12/29/19 12:42 DC Hydralazine HCl (Apresoline Inj) 10 mg PRN Q4HRS PRN 12/28/19 17:30 01/04/20 15:33 10 MG Hydralazine HCl (Apresoline) 100 mg TID 01/02/20 08:00 01/05/20 08:38 100 MG Hydromorphone HCl (Dilaudid) 0.5 mg PRN Q10MIN PRN 12/31/19 07:30 12/31/19 16:12 DC Insulin Human Lispro (HumaLOG) 0-5 UNITS TIDWMEALS 12/28/19 08:00 01/02/20 12:00 2 UNITS Isosorbide Mononitrate (Imdur) 30 mg 1X ONCE 01/02/20 15:00 01/02/20 15:01 DC 01/02/20 14:59 30 MG Labetalol HCl (Trandate) 100 mg BID 12/28/19 21:00 12/30/19 14:03 DC 12/30/19 08:06 100 MG Lactobacillus Rhamnosus (Culturelle) 1 cap BID 12/29/19 21:00 01/05/20 08:37 1 CAP Lidocaine HCl (Lidocaine 1% 20ml Vial) 20 ml STK-MED ONCE 12/31/19 14:13 12/31/19 14:14 DC 12/31/19 14:15 5 ML Lidocaine HCl (Lidocaine Pf 2% Vial) 5 ml STK-MED ONCE 12/31/19 14:04 12/31/19 14:04 DC Lidocaine HCl (Xylocaine-Mpf 1% 2ml Vial) 2 ml PRN 1X PRN 12/31/19 07:30 12/31/19 16:12 DC Linagliptin (Tradjenta) 5 mg DAILY 12/28/19 13:00 12/29/19 12:27 DC 12/28/19 12:36 5 MG Linezolid/Dextrose 300 ml @ 300 mls/hr Q12HR 12/28/19 21:00 01/04/20 14:08 DC 01/04/20 09:02 300 MLS/HR Meropenem 500 mg/ Sodium Chloride 50 ml @ 100 mls/hr Q8HRS 01/03/20 14:00 01/05/20 05:42 100 MLS/HR Morphine Sulfate (Morphine Sulfate) 4 mg PRN Q4HRS PRN 01/03/20 14:00 01/05/20 05:43 4 MG Multivitamins (Thera M Plus) 1 tab DAILY 12/29/19 14:00 01/05/20 08:37 1 TAB Nifedipine (Procardia Xl) 30 mg DAILY 01/05/20 09:00 01/05/20 08:38 30 MG Non-Formulary Medication (Carvedilol (Coreg)) 25 mg BIDWMEALS 12/28/19 17:00 UNV Non-Formulary Medication (Ropinirole Hcl ) 0.5 mg HS 12/28/19 21:00 UNV Ondansetron HCl (Zofran) 4 mg STK-MED ONCE 12/31/19 14:05 12/31/19 14:06 DC Oxycodone HCl (OxyCONTIN) 10 mg Q12HR 12/29/19 13:00 01/05/20 08:37 10 MG Pantoprazole Sodium (Protonix) 40 mg BIDAC 12/28/19 16:30 01/05/20 08:10 40 MG Phenylephrine HCl (PHENYLEPHRINE in 0.9% NACL PF) 1 mg STK-MED ONCE 12/31/19 14:40 12/31/19 14:40 DC Piperacillin Sod/ Tazobactam Sod 2.25 gm/Sodium Chloride 50 ml @ 100 mls/hr Q6HRS 12/28/19 12:00 01/03/20 11:04 DC 01/03/20 05:36 100 MLS/HR Prochlorperazine Edisylate (Compazine) 5 mg PACU PRN PRN 12/31/19 07:30 12/31/19 16:12 DC Propofol (Diprivan) 200 mg STK-MED ONCE 12/31/19 14:04 12/31/19 14:04 DC Ringer's Solution 1,000 ml @ 30 mls/hr Q24H 12/31/19 07:29 12/31/19 16:12 DC Ropinirole HCl (Requip) 0.5 mg HS 12/27/19 21:00 01/04/20 21:29 0.5 MG Sevoflurane (Ultane) 30 ml STK-MED ONCE 12/31/19 14:06 12/31/19 14:06 DC Sodium Bicarbonate (Sodium Bicarbonate) 650 mg TID 01/01/20 14:00 01/05/20 08:37 650 MG Sodium Chloride 1,000 ml @ 100 mls/hr Q10H 12/27/19 20:30 12/30/19 14:16 DC 12/29/19 21:34 100 MLS/HR Temazepam (Restoril) 30 mg QHS 12/28/19 21:00 UNV Trazodone HCl (Desyrel) 50 mg QHS 12/28/19 21:00 01/04/20 21:27 50 MG Labs: Lab Laboratory Tests Test 01/04/20 11:48 01/04/20 16:51 01/05/20 06:15 01/05/20 07:43 Glucose (Fingerstick) 163 mg/dL (70-99) 137 mg/dL (70-99) 129 mg/dL (70-99) White Blood Count 7.7 x10^3/uL (4.0-11.0) Red Blood Count 3.88 x10^6/uL (4.30-5.70) Hemoglobin 11.0 g/dL (13.0-17.5) Hematocrit 33.4 % (39.0-53.0) Mean Corpuscular Volume 86 fL (79-100) Mean Corpuscular Hemoglobin 28 pg (25-35) Mean Corpuscular Hemoglobin Concent 33 g/dL (31-37) Red Cell Distribution Width 15.0 % (11.5-14.5) Platelet Count 214 x10^3/uL (140-400) Sodium Level 142 mmol/L (136-145) Potassium Level 3.8 mmol/L (3.5-5.1) Chloride Level 107 mmol/L (98-107) Carbon Dioxide Level 21 mmol/L (21-32) Anion Gap 14 (6-14) Blood Urea Nitrogen 48 mg/dL (8-26) Creatinine 3.1 mg/dL (0.7-1.3) Estimated GFR (Cockcroft-Gault) 21.2 BUN/Creatinine Ratio 15 (6-20) Glucose Level 111 mg/dL (70-99) Calcium Level 8.6 mg/dL (8.5-10.1) Total Bilirubin 0.3 mg/dL (0.2-1.0) Aspartate Amino Transf (AST/SGOT) 15 U/L (15-37) Alanine Aminotransferase (ALT/SGPT) 17 U/L (16-63) Alkaline Phosphatase 83 U/L (46-116) Total Protein 6.9 g/dL (6.4-8.2) Albumin 2.5 g/dL (3.4-5.0) Albumin/Globulin Ratio 0.6 (1.0-1.7) Micro RUN DATE: 01/03/20 [facility] LAB *LIVE* PAGE 1 RUN TIME: 1054 Specimen Inquiry PATIENT: BERTRAND COLMENARES ACCT: [id number] LOC: [address] [place] [address] U: [id number] AGE/SX: 54/M ROOM: 538 RE12/27/[address]: SAMM PRASAD MD : 1965 BED: 1 DIS : STATUS: ADM IN TLOC: SPEC #: [id number] MIKIE: 12/31/19 STATUS: RES REQ #: [id number] RECD: 01/01/[address]: SAMM PRASAD MD SOURCE: ABSCESS ENTR: 01/01/[address]: CRISTY CHEEMA MD SPDESC: DULCE MARIA SRIVASTAVA MD, STEWART R DO KATRAPATI, PRASHANTH S MD KELLING, DOUGLAS M DO NAIR, VENU S MD ORDERED: ANAER/AERCHRISTIANO/ARIANA COMMENTS: LT GREAT TOE SWAB Procedure Result GRAM STAIN Final Final NO ORGANISMS SEEN. SQUAMOUS EPI CELL:NONE SEEN PMN (WBCs):RARE Unless otherwise specified, Testing Performed by: [address] [address] For Inquires, the Physician may contact the Microbiology department at [phone] ANAEROBIC-AEROBIC CULTURE Preliminary Preliminary FEW GRAM NEGATIVE RODS on 01/02/20 at 1016 FINAL ID= [SERRATIA MARCESCENS] RARE GRAM NEGATIVE RODS on 01/03/20 at 1049 FINAL ID= [PSEUDOMONAS AERUGINOSA] SERRATIA MARCESCENS PSEUDOMONAS AERUGINOSA ANTIMICROBIAL SUSCEPTIBILITY Preliminary Comment NEG IZA 56 SERRATIA MARCESCENS ANTIBIOTIC RESULT INTERPRETATION AMPICILLIN/SULBACTAM >16/8 R AMIKACIN <=16 S AMPICILLIN >16 R AMOXICILLIN/K CLAVULANATE >16/8 R AZTREONAM <=4 S CEFTRIAXONE 32 R CEFTAZIDIME >16 R CEFOTAXIME >32 R CEFOXITIN 16 R* CONTINUED ON NEXT PAGE RUN DATE: 01/03/20 [facility] LAB *LIVE* PAGE 2 RUN TIME: 1054 Specimen Inquiry SPEC: [id number] PATIENT: BERTRAND COLMENARES [id number] (Continued) Procedure Result ANTIMICROBIAL SUSCEPTIBILITY Preliminary (continued) CIPROFLOXACIN <=0.25 S CEFEPIME <=2 S CEFUROXIME >16 R CEFTAZIDIME/AVIBACTAM <=4 S ERTAPENEM <=0.5 S GENTAMICIN <=2 S LEVOFLOXACIN <=0.5 S MEROPENEM <=1 S PIPERACILLIN/TAZOBACTAM <=8 S TRIMETHOPRIM/SULFAMETHOXAZOLE <=0.5/9.5 S TETRACYCLINE >8 R TOBRAMYCIN <=2 S Unless otherwise specified, Testing Performed by: [address] [address] For Inquires, the Physician may contact the Microbiology department at [phone] Objective: Assessment: Left big toe chronic ulcer with bone scan positive for osteomyelitis. s/p amput ation, closed on 12/[address] Cheema. Culture + serratia and PSAE Right big toe ulcer, superficial. Bone scan is positive for osteomyelitis, but there is no clinical evidence of chronic or deep wound on to the right big toe. s/p debridement of necrotic skin & subcutaneous tissue on 12/30. Right foot cellulitis. Peripheral arterial disease. Coronary artery disease. Diabetes. Hypertension. Noncompliance. LEATHA on CKD, renal following Diarrhea Plan: Plan of Care DC Merrem Start Cipro 500 mg p.o. twice daily for 5 days f/u C diff PCR Side effects explained to the patient Probiotics Local wound care as directed Follow-up with ID clinic if needed d/w AURELIA DACOSTA MD Jan 05, 2020 10:00
--- NOTE | 2020-01-05 10:33 | PDOC ---
Renal-Progress Notes Subjective Notes Notes NO NEW COMPLAINTS History of Present Illness Hx of present illness STABLE Vitals Vitals Vital Signs Date Time Temp Pulse Resp B/P (MAP) Pulse Ox O2 Delivery O2 Flow Rate FiO2 01/05/20 09:51 Room Air 01/05/20 08:38 98 146/87 01/05/20 07:38 97.6 20 96 97.6 Weight Weight [ ] I.O. Intake and Output Intake and Output 01/05/20 07:00 Intake Total 2050 ml Balance 2050 ml Intake Oral 1750 ml IV Total 300 ml # Voids 7 # Bowel Movements 1 Labs Labs Laboratory Tests Test 01/04/20 11:48 01/04/20 16:51 01/05/20 06:15 01/05/20 07:43 Glucose (Fingerstick) 163 mg/dL (70-99) 137 mg/dL (70-99) 129 mg/dL (70-99) White Blood Count 7.7 x10^3/uL (4.0-11.0) Red Blood Count 3.88 x10^6/uL (4.30-5.70) Hemoglobin 11.0 g/dL (13.0-17.5) Hematocrit 33.4 % (39.0-53.0) Mean Corpuscular Volume 86 fL (79-100) Mean Corpuscular Hemoglobin 28 pg (25-35) Mean Corpuscular Hemoglobin Concent 33 g/dL (31-37) Red Cell Distribution Width 15.0 % (11.5-14.5) Platelet Count 214 x10^3/uL (140-400) Sodium Level 142 mmol/L (136-145) Potassium Level 3.8 mmol/L (3.5-5.1) Chloride Level 107 mmol/L (98-107) Carbon Dioxide Level 21 mmol/L (21-32) Anion Gap 14 (6-14) Blood Urea Nitrogen 48 mg/dL (8-26) Creatinine 3.1 mg/dL (0.7-1.3) Estimated GFR (Cockcroft-Gault) 21.2 BUN/Creatinine Ratio 15 (6-20) Glucose Level 111 mg/dL (70-99) Calcium Level 8.6 mg/dL (8.5-10.1) Total Bilirubin 0.3 mg/dL (0.2-1.0) Aspartate Amino Transf (AST/SGOT) 15 U/L (15-37) Alanine Aminotransferase (ALT/SGPT) 17 U/L (16-63) Alkaline Phosphatase 83 U/L (46-116) Total Protein 6.9 g/dL (6.4-8.2) Albumin 2.5 g/dL (3.4-5.0) Albumin/Globulin Ratio 0.6 (1.0-1.7) Micro Micro Microbiology 12/31/19 Gram Stain - Final, Resulted 12/31/19 Aerobic and Anaerobic Culture - Preliminary, Resulted 12/31/19 Antimicrobic Susceptibility - Preliminary, Resulted Review of Systems Constitutional: yes: alert Ears/Nose/Throat: Yes: no symptom reported Pulmonary: Yes no symptom reported Cardiovascular: Yes no symptom reported Gastrointestional: Yes: no symptom reported Genitourinary: Yes: no symptom reported Musculoskeletal: Yes: no symptom reported Psychiatric/Neurological: Yes: no symptom reported Endocrine: Yes: no symptom reported Hematologic/Lymphatic: Yes: no symptom reported Physical Exam General Appearance: no apparent distress Skin: warm Respiratory: bilateral CTA Heart: S1S2 Abdomen: soft, bowel sounds present Genitourinary: bladder flat Neurology: alert, oriented, follow commands Musculoskeletal: Other Assessment Assessment IMP LEATHA-RESOLVED WITH CR DOWN TO 3.1-HX OF LEATHA NEEDING HD COUPLE YEARS AGO WHILE AT [facility] CKD STATGE 4-CR AT BASELINE NOW 2.8-3.2 ON AVG L BIG TOE ULCER AND OSTEOMYELITIS-S/P AMP RIGHT FOOT CELLULITIS DM II HTN PLAN WOUND CARE ANTIBIOTICS RENAL FXN STABLE NOW ENC PT TO KEEP OP APPT AT D/C WILL FOLLOW PAT GARRISON MD Jan 05, 2020 10:33
[2020-01-05 11:23] VITALS: BP 155/92
--- NOTE | 2020-01-05 12:07 | PDOC ---
CARDIO Progress Notes Date and Time Date of Service 01/05/20 Time of Evaluation 1200 Subjective Subjective: No Chest Pain, No Palpitations, Other (SOA slightly better, but still SOA) Vitals Vitals Vital Signs Date Time Temp Pulse Resp B/P (MAP) Pulse Ox O2 Delivery O2 Flow Rate FiO2 01/05/20 11:23 98.0 93 20 155/92 (113) 98 Room Air 98.0 Weight Weight [ ] Input and Output Intake and Output Intake and Output 01/05/20 07:00 Intake Total 2050 ml Balance 2050 ml Intake Oral 1750 ml IV Total 300 ml # Voids 7 # Bowel Movements 1 Laboratory Labs Laboratory Tests Test 01/04/20 16:51 01/05/20 06:15 01/05/20 07:43 Glucose (Fingerstick) 137 mg/dL (70-99) 129 mg/dL (70-99) White Blood Count 7.7 x10^3/uL (4.0-11.0) Red Blood Count 3.88 x10^6/uL (4.30-5.70) Hemoglobin 11.0 g/dL (13.0-17.5) Hematocrit 33.4 % (39.0-53.0) Mean Corpuscular Volume 86 fL (79-100) Mean Corpuscular Hemoglobin 28 pg (25-35) Mean Corpuscular Hemoglobin Concent 33 g/dL (31-37) Red Cell Distribution Width 15.0 % (11.5-14.5) Platelet Count 214 x10^3/uL (140-400) Sodium Level 142 mmol/L (136-145) Potassium Level 3.8 mmol/L (3.5-5.1) Chloride Level 107 mmol/L (98-107) Carbon Dioxide Level 21 mmol/L (21-32) Anion Gap 14 (6-14) Blood Urea Nitrogen 48 mg/dL (8-26) Creatinine 3.1 mg/dL (0.7-1.3) Estimated GFR (Cockcroft-Gault) 21.2 BUN/Creatinine Ratio 15 (6-20) Glucose Level 111 mg/dL (70-99) Calcium Level 8.6 mg/dL (8.5-10.1) Total Bilirubin 0.3 mg/dL (0.2-1.0) Aspartate Amino Transf (AST/SGOT) 15 U/L (15-37) Alanine Aminotransferase (ALT/SGPT) 17 U/L (16-63) Alkaline Phosphatase 83 U/L (46-116) Total Protein 6.9 g/dL (6.4-8.2) Albumin 2.5 g/dL (3.4-5.0) Albumin/Globulin Ratio 0.6 (1.0-1.7) Microbiology Micro Microbiology 12/31/19 Gram Stain - Final, Resulted 12/31/19 Aerobic and Anaerobic Culture - Preliminary, Resulted 12/31/19 Antimicrobic Susceptibility - Preliminary, Resulted Review of Systems Constitutional: yes: alert Ears/Nose/Throat: Yes: no symptom reported Pulmonary: Yes no symptom reported Cardiovascular: Yes no symptom reported Gastrointestional: Yes: no symptom reported Genitourinary: Yes: no symptom reported Musculoskeletal: Yes: no symptom reported Psychiatric/Neurological: Yes: no symptom reported Endocrine: Yes: no symptom reported Hematologic/Lymphatic: Yes: no symptom reported Physical Exam HEENT: Neck Supple W Full Motion Chest: Symmetric LUNGS: Clear to Auscultation Heart: RRR (SR) Abdomen: Soft N/T Extremities: No Edema, No Calf Tenderness, Other (dressings intact to bilateral feet) Neurology: alert, oriented, follow commands Assessment Assessment 1. Diabetic foot ulcers/osteomyelitis. S/p left first toe partial amputation and right first toe debridement. Followed by wound care. 2. Recent mechanical fall. No syncope 3. Severe RLE PAD with claudication: noted per duplex. 2+ right DP and 1+ left DP. Followed by vascular surgery. 4. Mild acute on chronic systolic CHF with ICM: prior EF 30-35%. Lasis held with LEATHA. C/o SOA. CXR c/w CHF. Will give additional dose of Lasix. Resume oral upon discharge. Will need outpatient monitoring of labs. F/u with Dr. Erwin scheduled 5. CAD: past stents. No chest pain. 6. HTN urgency; blood pressure better controlled. Renal duplex without evidence of stenosis. Nifedipine not ideal with severe cardiomyopathy, will resume amlodipine. 7. HLP 8. DM 9. LEATHA on CKD: Cr mildly worse ^3.1 Justicifation of Admission Dx: Justifications for Admission: Justification of Admission Dx: N/A Acute Renal Failure: Serum Cr > 4mg/dL KAMILA VILLATORO APRN Jan 05, 2020 12:07
[2020-01-05] MEDS ORDERED: CIPROFLOXACIN HCL 250 MG TABLET. PO SCH (13:00)
--- NOTE | 2020-01-05 13:55 | PN ---
DATE: 01/05/2020 SUBJECTIVE: The patient is resting, slightly propped up in bed, no apparent respiratory distress. Awake, alert, continuing to complain of pain. Apparently, the nursing staff said that he has an uneventful night. Has no more diarrhea and his blood pressure is much better controlled. PHYSICAL EXAMINATION: GENERAL: When I examined him, he looked pale. No jaundice, cyanosis or thyromegaly. No jugular venous distention. No limb edema. VITAL SIGNS: His heart rate was 98, blood pressure 146/87, temperature 97.6, respiratory rate 20 and oxygen saturation was 96% on room air. HEENT: Showed normocephalic, atraumatic. NECK: Supple. HEART: Normal first and second heart sounds. No gallop or murmur. CHEST: Clear to auscultation. No crepitations or rhonchi. ABDOMEN: Distended, soft, nontender. No guarding or rigidity. No organomegaly. All hernial orifice intact. Bowel sounds normal. NEUROLOGIC: He is grossly intact. SKIN: Has wounds in both big toes, covered with dressing. His intake over the last 24 hours was 850 mL, no output was recorded. LABORATORY WORK: This morning showed his white cell count to be 7700, hemoglobin 11, hematocrit 33, MCV 86 and platelet count 214,000. Serum sodium 142, potassium 3.8, chloride 107, bicarbonate 21, anion gap of 14, BUN 48, creatinine 3.1. His estimated GFR was 21 mL per minute. His glucose was 111, calcium was 8.6. Total bilirubin, AST, ALT, alkaline phosphatase were normal. Total protein was 6.9, albumin was 2.5. ASSESSMENT: 1. Diarrhea, this has subsided. There is C. diff toxin still pending at the time of this dictation. Nursing staff states that he has no further episodes of diarrhea last night. 2. Infected right foot and chronic wound to the left big toe with cellulitis and osteomyelitis detected on bone scan. He is currently on meropenem. He underwent partial amputation of his left big toe and excisional debridement of his right big toe. 3. Coronary artery disease, status post percutaneous coronary intervention with stent deployment to the left anterior descending and right coronary artery. 4. Chronic systolic congestive heart failure due to ischemic cardiomyopathy with an ejection fraction of 35% on his most recent echocardiogram. 5. Acute on chronic kidney injury. Creatinine fluctuates and came down from 5.2 to 2.7 today it was 3.1. 6. Hypertension. Finally blood pressure is much better controlled after he switched from amlodipine to Procardia. His renal duplex ultrasound showed no evidence of renal artery stenosis. 7. Hyperlipidemia. 8. Type 2 diabetes mellitus, for which he is currently off of all his oral hypoglycemic agent. PLAN: To continue with wound care: Continue with IV antibiotic and await their decision by the Infectious Disease specialist regarding antibiotic treatment. SAMM PRASAD MD DR: OH/jose JOB#: [id number] / [id number]
[2020-01-05 15:00] VITALS: BP 169/94
[2020-01-05] MEDS ORDERED: POTASSIUM CHLORIDE 10 MEQ TABLET.ER. PO ONE (15:00)
[2020-01-05] MEDS ORDERED: FUROSEMIDE 20 MG/2 ML VIAL. IVP ONE (15:00)
--- NOTE | 2020-01-05 17:00 | NUR ---
SW spoke with RN and reviewed chart. Pt on oral medications and room air. Spoke with pt who stated he will be staying with his dtr on discharge and she can take him to out-patient wound care appointments. Pt declined the need for HH at this time. SW to follow.
[2020-01-05 19:00] VITALS: BP 150/89
[2020-01-05] MEDS: rOPINIRole 0.25 MG TABLET. PO SCH (21:53)
[2020-01-05] MEDS: CIPROFLOXACIN HCL 250 MG TABLET. PO SCH (21:53)
[2020-01-05] MEDS: traZODone 50 MG TABLET. PO SCH (21:53)
[2020-01-05] MEDS: ATORVASTATIN CALCIUM 40 MG TABLET. PO SCH (21:53)
[2020-01-05] MEDS: TEMAZEPAM 15 MG CAPSULE PO PRN (21:54)
[2020-01-05 23:00] VITALS: BP 166/94
[2020-01-06 03:00] VITALS: BP 155/91
[2020-01-06] MEDS: cloNIDine HCL 0.1 MG TABLET PO SCH ×2 (05:52→16:48)
[2020-01-06] MEDS: MORPHINE SULFATE 4 MG/ML VIAL. IV PRN (06:24)
[2020-01-06 07:00] LABS: CALCIUM 8.6 mg/dL (8.5-10.1); CREATININE 2.8 mg/dL (0.7-1.3); GFR 23.8
[2020-01-06 07:56] VITALS: BP 176/95
[2020-01-06] MEDS: INSULIN LISPRO 300 UNITS/3 ML VIAL. SQ SCH ×2 (08:00→12:00)
[2020-01-06] MEDS: oxyCODONE ER 10 MG TAB.ER.12H PO SCH (08:36)
[2020-01-06] MEDS: PANTOPRAZOLE 40 MG TABLET.DR. PO SCH ×2 (08:36→16:50)
[2020-01-06] MEDS: HYDROcodone/APAP 7.5/325MG 1 TAB TABLET PO PRN ×3 (08:36→16:47)
[2020-01-06] MEDS: SODIUM BICARBONATE 650 MG TABLET. PO SCH ×2 (08:37→16:46)
[2020-01-06] MEDS: CLOPIDOGREL BISULFATE 75 MG TABLET PO SCH (08:37)
[2020-01-06] MEDS: GABAPENTIN 300 MG CAPSULE. PO SCH (08:37)
[2020-01-06] MEDS: ISOSORBIDE MONONITRATE ER 30 MG TAB.ER.24H PO SCH (08:37)
[2020-01-06] MEDS: MULTIVITAMIN with MINERAL TABLET. PO SCH (08:38)
[2020-01-06] MEDS: CARVEDILOL 12.5 MG TABLET. PO SCH ×2 (08:38→16:50)
[2020-01-06] MEDS: CIPROFLOXACIN HCL 250 MG TABLET. PO SCH (08:39)
[2020-01-06] MEDS: ASPIRIN CHEWABLE 81 MG TABLET. PO SCH (08:39)
[2020-01-06] MEDS: LACTOBACILLUS RHAMNOSUS GG 1 CAPSULE. PO SCH (08:39)
[2020-01-06] MEDS ORDERED: amLODIPine BESYLATE 10 MG TABLET PO SCH (09:00)
[2020-01-06] MEDS: ASCORBIC ACID 500 MG TABLET PO SCH (09:00)
--- NOTE | 2020-01-06 09:34 | PDOC ---
Infectious Disease Note Subjective: Subjective Patient feels better Continues to have diarrhea Post pain is under control Vital Signs: Vital Signs Vital Signs Date Time Temp Pulse Resp B/P (MAP) Pulse Ox O2 Delivery O2 Flow Rate FiO2 01/06/20 08:39 97 176/95 01/06/20 07:56 98.1 18 97 Room Air 98.1 Physical Exam: PHYSICAL EXAM GENERAL: Propped up in bed, alert in NAD HEENT: Oral cavity pink, moist. No thrush. NECK: Supple. LUNGS: Clear to auscultation HEART: S1, S2 regular. ABDOMEN: Soft and nontender EXTREMITIES: Right foot bandaged, left foot dressing had been taken down earlier by vascular team Left first toe incision dry and intact, no drainage, mild erythema and swelling, improving slowly SKIN: without generalized rash. NEUROLOGIC: Alert and appropriate. No focal neurologic deficit. PIV Medications: Inpatient Meds: Current Medications Medications (Trade) Dose Ordered Sig/Jerri Start Time Stop Time Status Last Admin Dose Admin Acetaminophen (Tylenol) 650 mg PRN Q6HRS PRN 12/27/19 20:30 Acetaminophen/ Hydrocodone Bitart (Lortab 7.5/325) 1 tab PRN Q4HRS PRN 12/28/19 01:45 01/06/20 08:36 1 TAB Amlodipine Besylate (Norvasc) 10 mg DAILY 01/06/20 09:00 01/06/20 08:39 10 MG Ascorbic Acid (Vitamin C) 500 mg DAILY 12/29/19 14:00 01/05/20 08:37 500 MG Aspirin (Aspirin Chewable) 81 mg DAILY 12/28/19 13:00 01/06/20 08:39 81 MG Atorvastatin Calcium (Lipitor) 40 mg QHS 12/28/19 21:00 01/05/20 21:53 40 MG Carvedilol (Coreg) 25 mg BIDWMEALS 01/02/20 08:00 01/06/20 08:38 25 MG Cefazolin Sodium 1 gm/Sodium Chloride 500 ml @ 500 mls/hr 1X ONCE 12/31/19 06:00 12/31/19 06:59 DC 12/31/19 14:37 Ciprofloxacin (Cipro) 500 mg BID 01/05/20 13:46 01/06/20 08:39 500 MG Clonidine HCl (Catapres) 0.1 mg Q8HRS 01/04/20 16:30 01/06/20 05:52 0.1 MG Clopidogrel Bisulfate (Plavix) 75 mg DAILYWBKFT 12/28/19 13:00 01/06/20 08:37 75 MG Dextrose (Dextrose 50%-Water Syringe) 12.5 gm PRN Q15MIN PRN 12/27/19 20:30 Fentanyl Citrate (Fentanyl 2ml Vial) 100 mcg STK-MED ONCE 12/31/19 13:58 12/31/19 13:58 DC Furosemide (Lasix) 20 mg 1X ONCE 01/05/20 15:00 01/05/20 15:01 DC 01/05/20 15:11 20 MG Gabapentin (Neurontin) 300 mg BID 12/28/19 13:00 01/06/20 08:37 300 MG Glimepiride (Amaryl) 2 mg DAILY 12/30/19 09:00 12/29/19 12:42 DC Hydralazine HCl (Apresoline Inj) 10 mg PRN Q4HRS PRN 12/28/19 17:30 01/04/20 15:33 10 MG Hydralazine HCl (Apresoline) 100 mg TID 01/02/20 08:00 01/06/20 08:38 100 MG Hydromorphone HCl (Dilaudid) 0.5 mg PRN Q10MIN PRN 12/31/19 07:30 12/31/19 16:12 DC Insulin Human Lispro (HumaLOG) 0-5 UNITS TIDWMEALS 12/28/19 08:00 01/02/20 12:00 2 UNITS Isosorbide Mononitrate (Imdur) 30 mg 1X ONCE 01/02/20 15:00 01/02/20 15:01 DC 01/02/20 14:59 30 MG Labetalol HCl (Trandate) 100 mg BID 12/28/19 21:00 12/30/19 14:03 DC 12/30/19 08:06 100 MG Lactobacillus Rhamnosus (Culturelle) 1 cap BID 12/29/19 21:00 01/06/20 08:39 1 CAP Lidocaine HCl (Lidocaine 1% 20ml Vial) 20 ml STK-MED ONCE 12/31/19 14:13 12/31/19 14:14 DC 12/31/19 14:15 5 ML Lidocaine HCl (Lidocaine Pf 2% Vial) 5 ml STK-MED ONCE 12/31/19 14:04 12/31/19 14:04 DC Lidocaine HCl (Xylocaine-Mpf 1% 2ml Vial) 2 ml PRN 1X PRN 12/31/19 07:30 12/31/19 16:12 DC Linagliptin (Tradjenta) 5 mg DAILY 12/28/19 13:00 12/29/19 12:27 DC 12/28/19 12:36 5 MG Linezolid/Dextrose 300 ml @ 300 mls/hr Q12HR 12/28/19 21:00 01/04/20 14:08 DC 01/04/20 09:02 300 MLS/HR Meropenem 500 mg/ Sodium Chloride 50 ml @ 100 mls/hr Q8HRS 01/03/20 14:00 01/05/20 12:18 DC 01/05/20 05:42 100 MLS/HR Morphine Sulfate (Morphine Sulfate) 4 mg PRN Q4HRS PRN 01/03/20 14:00 01/06/20 06:24 4 MG Multivitamins (Thera M Plus) 1 tab DAILY 12/29/19 14:00 01/06/20 08:38 1 TAB Nifedipine (Procardia Xl) 30 mg DAILY 01/05/20 09:00 01/05/20 14:58 DC 01/05/20 08:38 30 MG Non-Formulary Medication (Carvedilol (Coreg)) 25 mg BIDWMEALS 12/28/19 17:00 UNV Non-Formulary Medication (Ropinirole Hcl ) 0.5 mg HS 12/28/19 21:00 UNV Ondansetron HCl (Zofran) 4 mg STK-MED ONCE 12/31/19 14:05 12/31/19 14:06 DC Oxycodone HCl (OxyCONTIN) 10 mg Q12HR 12/29/19 13:00 01/06/20 08:36 10 MG Pantoprazole Sodium (Protonix) 40 mg BIDAC 12/28/19 16:30 01/06/20 08:36 40 MG Phenylephrine HCl (PHENYLEPHRINE in 0.9% NACL PF) 1 mg STK-MED ONCE 12/31/19 14:40 12/31/19 14:40 DC Piperacillin Sod/ Tazobactam Sod 2.25 gm/Sodium Chloride 50 ml @ 100 mls/hr Q6HRS 12/28/19 12:00 01/03/20 11:04 DC 01/03/20 05:36 100 MLS/HR Potassium Chloride (Klor-Con) 10 meq 1X ONCE 01/05/20 15:00 01/05/20 15:01 DC 01/05/20 15:11 10 MEQ Prochlorperazine Edisylate (Compazine) 5 mg PACU PRN PRN 12/31/19 07:30 12/31/19 16:12 DC Propofol (Diprivan) 200 mg STK-MED ONCE 12/31/19 14:04 12/31/19 14:04 DC Ringer's Solution 1,000 ml @ 30 mls/hr Q24H 12/31/19 07:29 12/31/19 16:12 DC Ropinirole HCl (Requip) 0.5 mg HS 12/27/19 21:00 01/05/20 21:53 0.5 MG Sevoflurane (Ultane) 30 ml STK-MED ONCE 12/31/19 14:06 12/31/19 14:06 DC Sodium Bicarbonate (Sodium Bicarbonate) 650 mg TID 01/01/20 14:00 01/06/20 08:37 650 MG Sodium Chloride 1,000 ml @ 100 mls/hr Q10H 12/27/19 20:30 12/30/19 14:16 DC 12/29/19 21:34 100 MLS/HR Temazepam (Restoril) 30 mg QHS 12/28/19 21:00 UNV Trazodone HCl (Desyrel) 50 mg QHS 12/28/19 21:00 01/05/20 21:53 50 MG Labs: Lab Laboratory Tests Test 01/05/20 12:05 01/05/20 17:24 01/06/20 05:50 01/06/20 07:46 Glucose (Fingerstick) 129 mg/dL (70-99) 140 mg/dL (70-99) 114 mg/dL (70-99) Sodium Level 141 mmol/L (136-145) Potassium Level 4.0 mmol/L (3.5-5.1) Chloride Level 107 mmol/L (98-107) Carbon Dioxide Level 22 mmol/L (21-32) Anion Gap 12 (6-14) Blood Urea Nitrogen 56 mg/dL (8-26) Creatinine 2.8 mg/dL (0.7-1.3) Estimated GFR (Cockcroft-Gault) 23.8 Glucose Level 89 mg/dL (70-99) Calcium Level 8.6 mg/dL (8.5-10.1) Micro RUN DATE: 01/03/20 [facility] *LIVE* PAGE 1 RUN TIME: 1054 Specimen Inquiry PATIENT: BERTRAND COLMENARES ACCT: [id number] LOC: [address] [place] [address] U: [id number] AGE/SX: 54/M ROOM: 538 RE12/27/[address]: SAMM PRASAD MD : 1965 BED: 1 DIS: STATUS: ADM IN TLOC: -- SPEC #: [id number] [place]: 12/31/19-1415 STATUS: RES REQ #: [id number] RECD: 01/01/[address]: SAMM PRASAD MD SOURCE: ABSCESS ENTR: 01/01/[address]: CRISTY CHEEMA MD [facility]: DULCE MARIA SRIVASTAVA MD,SUSAN ANGELES,TAMIR NEIL,PAT BRITO MD ORDERED: ANAER/AEROB/GS COMMENTS: LT GREAT TOE SWAB Procedure Result GRAM STAIN Final Final NO ORGANISMS SEEN. SQUAMOUS EPI CELL:NONE SEEN PMN (WBCs):RARE Unless otherwise specified, Testing Performed by: [place] [address] For Inquires, the Physician may contact the Microbiology department at [phone] ANAEROBIC-AEROBIC CULTURE Preliminary Preliminary FEW GRAM NEGATIVE RODS on 01/02/20 at 1016 FINAL ID= [SERRATIA MARCESCENS] RARE GRAM NEGATIVE RODS on 01/03/20 at 1049 FINAL ID= [PSEUDOMONAS AERUGINOSA] SERRATIA MARCESCENS PSEUDOMONAS AERUGINOSA ANTIMICROBIAL SUSCEPTIBILITY Preliminary Comment NEG IZA 56 SERRATIA MARCESCENS ANTIBIOTIC RESULT INTERPRETATION AMPICILLIN/SULBACTAM >16/8 R AMIKACIN <=16 S AMPICILLIN >16 R AMOXICILLIN/K CLAVULANATE >16/8 R AZTREONAM <=4 S CEFTRIAXONE 32 R CEFTAZIDIME >16 R CEFOTAXIME >32 R CEFOXITIN 16 R* CONTINUED ON NEXT PAGE RUN DATE: 01/03/20 [facility] *LIVE* PAGE 2 RUN TIME: 1054 Specimen Inquiry SPEC: [id number] PATIENT: BERTRAND OCLMENARES [id number] (Continued) --- --------- Procedure Result ANTIMICROBIAL SUSCEPTIBILITY Preliminary (continued) CIPROFLOXACIN <=0.25 S CEFEPIME <=2 S CEFUROXIME >16 R CEFTAZIDIME/AVIBACTAM <=4 S ERTAPENEM <=0.5 S GENTAMICIN <=2 S LEVOFLOXACIN <=0.5 S MEROPENEM <=1 S PIPERACILLIN/TAZOBACTAM <=8 S TRIMETHOPRIM/SULFAMETHOXAZOLE <=0.5/9.5 S TETRACYCLINE >8 R TOBRAMYCIN <=2 S Unless otherwise specified, Testing Performed by: [facility] [address] [place] [address] For Inquires, the Physician may contact the Microbiology department at [phone] Objective: Assessment: Left big toe chronic ulcer with bone scan positive for osteomyelitis. s/p amputation, closed on 12/[address] Cheema. Culture + serratia and PSAE Right big toe ulcer, superficial. Bone scan is positive for osteomyelitis, but there is no clinical evidence of chronic or deep wound on to the right big toe. s/p debridement of necrotic skin & subcutaneous tissue on 12/30. Right foot cellulitis. Peripheral arterial disease. Coronary artery disease. Diabetes. Hypertension. Noncompliance. LEATHA on CKD, renal following Diarrhea Plan: Plan of Care Cipro 250mg mg p.o. twice daily for total 5 days, renal dosing C. difficile PCR negative Side effects explained to the patient Probiotics Local wound care as directed Okay to discharge from ID standpoint AURELIA SRIVASTAVA MD Jan 06, 2020 09:34
--- NOTE | 2020-01-06 11:39 | PDOC ---
Renal-Progress Notes Subjective Notes Notes NO NEW COMPLAINTS History of Present Illness Hx of present illness SAME Vitals Vitals Vital Signs Date Time Temp Pulse Resp B/P (MAP) Pulse Ox O2 Delivery O2 Flow Rate FiO2 01/06/20 08:39 97 176/95 01/06/20 07:56 98.1 18 97 Room Air 98.1 Weight Weight [ ] I.O. Intake and Output Intake and Output 01/06/20 06:59 Intake Total 1150 ml Balance 1150 ml Intake Oral 1150 ml # Voids 2 Labs Labs Laboratory Tests Test 01/05/20 12:05 01/05/20 17:24 01/06/20 05:50 01/06/20 07:46 Glucose (Fingerstick) 129 mg/dL (70-99) 140 mg/dL (70-99) 114 mg/dL (70-99) Sodium Level 141 mmol/L (136-145) Potassium Level 4.0 mmol/L (3.5-5.1) Chloride Level 107 mmol/L (98-107) Carbon Dioxide Level 22 mmol/L (21-32) Anion Gap 12 (6-14) Blood Urea Nitrogen 56 mg/dL (8-26) Creatinine 2.8 mg/dL (0.7-1.3) Estimated GFR (Cockcroft-Gault) 23.8 Glucose Level 89 mg/dL (70-99) Calcium Level 8.6 mg/dL (8.5-10.1) Micro Micro Microbiology 12/31/19 Gram Stain - Final, Resulted 12/31/19 Aerobic and Anaerobic Culture - Preliminary, Resulted 12/31/19 Antimicrobic Susceptibility - Preliminary, Resulted Review of Systems Constitutional: yes: alert Ears/Nose/Throat: Yes: no symptom reported Pulmonary: Yes no symptom reported Cardiovascular: Yes no symptom reported Gastrointestional: Yes: no symptom reported Genitourinary: Yes: no symptom reported Musculoskeletal: Yes: no symptom reported Psychiatric/Neurological: Yes: no symptom reported Endocrine: Yes: no symptom reported Hematologic/Lymphatic: Yes: no symptom reported Physical Exam General Appearance: no apparent distress Skin: warm Respiratory: bilateral CTA Heart: S1S2 Abdomen: soft, bowel sounds present Genitourinary: bladder flat Neurology: alert, oriented, follow commands Musculoskeletal: Other Assessment Assessment IMP LEATHA-RESOLVED WITH CR DOWN TO 2.8-HX OF LEATHA NEEDING HD COUPLE YEARS AGO WHILE AT [facility] CKD STATGE 4-CR AT BASELINE NOW 2.8-3.2 ON AVG L BIG TOE ULCER AND OSTEOMYELITIS-S/P AMP RIGHT FOOT CELLULITIS DM II HTN PLAN WOUND CARE ANTIBIOTICS RENAL FXN STABLE NOW ENC PT TO KEEP OP APPT AT D/C WILL FOLLOW PAT GARRISON MD Jan 06, 2020 11:39
[2020-01-06 11:53] VITALS: BP 155/88
[2020-01-06] MEDS ORDERED: CLON0.1T PO (12:11)
[2020-01-06] MEDS ORDERED: HYDR100T24 PO (12:11)
[2020-01-06] MEDS ORDERED: ISOS60TA2 PO (12:11)
[2020-01-06] MEDS ORDERED: HYDR-2769 PO (12:11)
[2020-01-06] MEDS ORDERED: AMLO10TA8 PO (12:11)
[2020-01-06] MEDS ORDERED: OXYC10TA46 PO (12:11)
--- NOTE | 2020-01-06 13:32 | DS ---
DATE OF DISCHARGE: 01/06/2020 HOSPITAL COURSE: The patient is a 54-year-old male patient who was admitted with infected big toes and also hypertensive urgency. He has had a bone scan, which basically showed that he has left big toe osteomyelitis and wounds in his right big toe for which he was seen by the vascular surgeon and he underwent partial amputation of his left big toe and debridement of his right big toe with removing necrotic skin and subcutaneous tissue. He was also followed by the commercial lines assistant as well as Infectious Disease specialist. He was actually on IV Zosyn and meropenem, and his wound culture has grown Escherichia marcescens that was sensitive to ciprofloxacin. He also grew Pseudomonas aeruginosa, both were apparently sensitive to ciprofloxacin. His blood pressure was poorly controlled and required adjustment where antihypertensive medication we add amlodipine 10 mg once a day, clonidine 0.1 mg every 8 hours. We increased his isosorbide mononitrate 60 mg and hydralazine to 100 mg and continued on his carvedilol and he was also on IV morphine. I switched him to OxyContin and hydrocodone orally and as he remained stable hemodynamically, he was offered home health but he refused as his daughter lives with him and she will take care of his wounds. He will be discharged to follow with the Infectious Disease Clinic as well as the Wound Clinic as also with the Nephrology Clinic as his kidney function has improved, but obviously he needs to be followed by the commercial lines assistant. PHYSICAL EXAMINATION: GENERAL: When I saw him this afternoon, he looked well and was clearly in no apparent respiratory distress, pale, but no jaundice, cyanosis or thyromegaly. No jugular venous distention. No limb edema. VITAL SIGNS: His heart rate was 86, blood pressure 155/88, temperature was 98, respiratory rate was 18 and oxygen saturation was 96%. HEAD, EYES, EARS, NOSE AND THROAT: Showed normocephalic, atraumatic. NECK: Supple. HEART: Showed normal first and second heart sounds. No gallop, rub or murmur. CHEST: Clear to auscultation. No crepitation or rhonchi. ABDOMEN: Distended, soft, nontender. No guarding or rigidity. No organomegaly. All hernial orifice intact. Bowel sounds normal. NEUROLOGIC: He was awake, alert, responding appropriately. He moves extremities without difficulty. He has wounds on both big toes, covered with dressing. His intake over the last 24 hours was 2100, no output was recorded. LABORATORY DATA: As of yesterday morning; showed a white cell count of 7700, hemoglobin 11, hematocrit 33, MCV 86 and platelet count 214,000. His chemistry showed a serum sodium 141, potassium 4, chloride 107, bicarbonate 22, anion gap of 12, BUN 56, creatinine 2.8, estimated GFR was 23 mL per minute, his glucose was 89, calcium was 8.6. DISCHARGE MEDICATIONS: The patient was discharged home to continue on amlodipine 10 mg once a day, clonidine 0.1 mg three times a day, hydralazine 100 mg three times a day, hydrocodone/APAP 10/325 one tablet every 4 hours, isosorbide mononitrate 60 mg once a day, OxyContin 10 mg twice a day, aspirin 81 mg once a day, atorvastatin calcium 40 mg at bedtime, carvedilol 25 mg twice a day, Plavix 75 mg once a day, gabapentin 300 mg once a day, glimepiride 4 mg twice a day, linaclotide Tradjenta 5 mg once a day, Protonix 20 mg once a day, Requip 0.5 mg at bedtime, temazepam 30 mg at bedtime and trazodone 50 mg once a day. In fact, we have discontinued his glimepiride as well as linagliptin given that he has been hypoglycemic initially and his blood sugar has been consistently well within the normal range. FINAL DISCHARGE DIAGNOSES: 1. Diarrhea that has subsided. His C. diff toxins were negative. 2. Infected right foot chronic wound of the left big toe with cellulitis and osteomyelitis detected on bone scan. He was on meropenem. He underwent partial amputation of the left big toe and excisional debridement of his right big toe. 3. Coronary artery disease, status post percutaneous coronary intervention with stent deployment to the left anterior descending and right coronary artery. 4. Chronic systolic congestive heart failure due to ischemic cardiomyopathy with an ejection fraction of 35% on his most recent echocardiogram. 5. Acute on chronic kidney injury. Creatinine fluctuates and came down from 5.2-2.8. 6. Hypertension. Finally, his blood pressure has much better controlled after we did adjust his medication. His renal Doppler ultrasound showed no evidence of renal artery stenosis. 7. Hyperlipidemia, for which he is on atorvastatin. 8. Type 2 diabetes mellitus, which he is currently off of all his oral hypoglycemic agent. The patient was advised to follow with his primary care physician and make an appointment with the commercial lines assistant, Infectious Disease Clinic as well as Wound Care Clinic. He also advised to monitor his blood sugar and he might have to restart at least his glimepiride. SAMM PRASAD MD DR: OH/jose JOB#: [id number] / [id number]
[2020-01-06 15:57] VITALS: BP 158/89
--- NOTE | 2020-01-06 16:45 | PDOC ---
PROGRESS NOTES Date of Service: DATE: 01/06/20 TIME: 16:45 Subjective Subjective Feeling better, wants to go home Objective Objective Vital Signs Date Time Temp Pulse Resp B/P (MAP) Pulse Ox O2 Delivery O2 Flow Rate FiO2 01/06/20 15:57 97.6 84 18 158/89 (112) 98 Room Air 97.6 Intake and Output 01/06/20 07:00 Intake Total 1150 ml Balance 1150 ml Intake Oral 1150 ml # Voids 2 Physical Exam Abdomen: Normal bowel sounds Heart: Regular rate Extremities: No cyanosis, No edema, Normal pulses (Palpable pedal pulses, could not appreciate popliteal pulses) General: mild distress HEENT: Atraumatic Lungs: Clear to auscultation MUSCULOSKELETAL: Osteoarthritic changes both hands Neuro: Normal speech, Sensation intact Psych/Mental Status: Mental status NL, Mood NL Skin: Other (Left first toe with boggy ulcer to tip, brown tissue to wound bed, penetrates deep, redness to entire toe, does not extend. Cannot extract any fluid. Right first toe with superficial clean pink ulcer to tip, no fluid, not deep. Right heel with some redness medially and laterally, but no areas of skin breakdown. ) Assessment Assessment 1. Diabetic foot ulcers/osteomyelitis. S/p left first toe partial amputation and right first toe debridement. Followed by wound care. 2. Recent mechanical fall. No syncope 3. Severe RLE PAD with claudication: noted per duplex. 2+ right DP and 1+ left DP. Followed by vascular surgery. 4. Mild acute on chronic systolic CHF with ICM: prior EF 30-35%. Lasis held with LEATHA. C/o SOA. CXR c/w CHF. Will give additional dose of Lasix. Resume oral upon discharge. Will need outpatient monitoring of labs. F/u with Dr. Erwin scheduled 5. CAD: past stents. No chest pain. 6. HTN urgency; blood pressure better controlled. Renal duplex without evidence of stenosis. 7. HLP 8. DM 9. LEATHA on CKD: Cr mildly worse ^3.1 Comment Review of Relevant I have reviewed the following items gavin (where applicable) has been applied. Labs Laboratory Tests Test 01/05/20 17:24 01/06/20 05:50 01/06/20 07:46 01/06/20 11:23 Glucose (Fingerstick) 140 mg/dL (70-99) 114 mg/dL (70-99) 140 mg/dL (70-99) Sodium Level 141 mmol/L (136-145) Potassium Level 4.0 mmol/L (3.5-5.1) Chloride Level 107 mmol/L (98-107) Carbon Dioxide Level 22 mmol/L (21-32) Anion Gap 12 (6-14) Blood Urea Nitrogen 56 mg/dL (8-26) Creatinine 2.8 mg/dL (0.7-1.3) Estimated GFR (Cockcroft-Gault) 23.8 Glucose Level 89 mg/dL (70-99) Calcium Level 8.6 mg/dL (8.5-10.1) Microbiology 12/31/19 Gram Stain - Final, Complete 12/31/19 Aerobic and Anaerobic Culture - Final, Complete 12/31/19 Antimicrobic Susceptibility - Final, Complete Medications Current Medications Amlodipine Besylate (Norvasc) 10 mg DAILY PO Last administered on 01/06/20at 08:39; Start 01/06/20 at 09:00 Ciprofloxacin (Cipro) 250 mg BID PO ; Start 01/06/20 at 21:00 Vitals/I & O Vital Sign - Last 24 Hours 01/05/20 01/05/20 01/05/20 01/05/20 17:29 17:29 17:54 18:30 Pulse 87 B/P (MAP) 150/97 O2 Delivery Room Air Room Air Room Air 01/05/20 01/05/20 01/05/20 01/05/20 19:00 19:45 21:53 21:54 Temp 98.1 98.1 Pulse 90 Resp 18 B/P (MAP) 150/89 (109) Pulse Ox 97 97 97 O2 Delivery Room Air Room Air Room Air Room Air 01/05/20 01/05/20 01/05/20 01/05/20 21:54 21:54 22:04 22:45 Pulse 90 90 B/P (MAP) 150/89 150/89 Pulse Ox 97 97 O2 Delivery Room Air Room Air 01/05/20 01/05/20 01/06/20 01/06/20 22:45 23:00 01:58 03:00 Temp 98.0 97.9 98.0 97.9 Pulse 96 89 Resp 18 18 B/P (MAP) 166/94 (118) 155/91 (112) Pulse Ox 97 96 96 97 O2 Delivery Room Air Room Air Room Air Room Air 01/06/20 01/06/20 01/06/20 01/06/20 05:52 06:24 07:00 07:56 Temp 98.1 98.1 Pulse 98 97 Resp 18 B/P (MAP) 168/105 176/95 (122) Pulse Ox 97 97 97 O2 Delivery Room Air Room Air Room Air 01/06/20 01/06/20 01/06/20 01/06/20 08:00 08:37 08:38 08:38 Pulse 97 97 97 B/P (MAP) 176/95 176/95 176/95 O2 Delivery Room Air 01/06/20 01/06/20 01/06/20 08:39 11:53 15:57 Temp 98.0 97.6 98.0 97.6 Pulse 97 86 84 Resp 18 18 B/P (MAP) 176/95 155/88 (110) 158/89 (112) Pulse Ox 96 98 O2 Delivery Room Air Room Air l Intake and Output 01/05/20 01/05/20 01/06/20 15:00 23:00 07:00 Intake Total 400 ml 400 ml 350 ml Balance 400 ml 400 ml 350 ml JERROD VILLALOBOS MD Jan 06, 2020 16:45
[2020-01-06 16:50] VITALS: BP 158/89
--- NOTE | 2020-01-06 17:18 | NUR ---
SW spoke with RN and reviewed chart. Pt on oral medications and room air. Spoke with Dr. Dougherty. Pt to discharge home today with out-patient wound care. No further SW needs at this time.
--- NOTE | 2020-01-06 17:26 | NUR ---
patient discharged home with family. iv removed, cath intact. meds and follow up reviewed. pt v/u. pt stable upon dc.
[2020-01-06] MEDS ORDERED: CIPROFLOXACIN HCL 250 MG TABLET. PO SCH (21:00)
--- NOTE | 2020-01-07 16:07 | PATHOLOGY ---
[facility] Accession Number: [id number] . 01 Material submitted: . hallux - LEFT GREAT TOE. Modifiers: left . 01 Clinical history: . Renal failure; sepsis . 02 Diagnosis: Left great toe partial amputation: - Open wound of toe showing acute inflammation and granulation tissue, with focal fibrosis and cortical bone destruction, and focal marrow edema and mild inflammation of underlying phalangeal bone. - Proximal toe amputation margin viable and negative for inflammation. (JPM:laura/debi 01/05/2020) [facility] 01/07/2020 1551 Local . 02 Electronically signed: . Sampson Putnam MD, Pathologist NPI- [id number] . 01 Gross description: . The specimen is received in formalin, labeled "Porfirio Dejesus, left great toe". Received is an amputated digit measuring 4.1 x 3.8 x 3.0 cm in greatest dimensions. The bone margin is jagged in appearance. The bone and soft tissue margins are inked black. The nail is present displaying a light fernando and thickened appearance. On the medial/plantar aspect of the specimen, there is a poorly circumscribed, irregular in contour, focally ulcerated and moneg-fernando lesion measuring 1.4 x 0.9 cm, which is 1.1 cm from the closest skin margin. The specimen is submitted representatively as follows: . A1 horizontal cross-section through lesion, to include underlying bone, following decalcification A2 longitudinal cross-section through bone margin, following decalcification. (CAA; 01/03/2020) . After initial microscopic examination, an additional horizontal cross-section through the lesion, to include underlying bone, is submitted in cassette A3, following decalcification. (CAA; 01/05/2020) QAC/QAC 01/07/2020 1427 Local . 02 Pathologist provided ICD-10: L98.9, L90.5, M86.172 . 02 CPT . 057249, [id number] Specimen Comment: A courtesy copy of this report has been sent to [phone], [phone] Specimen Comment: [id number] Specimen Comment: Report sent to / DR MARY Performed at: 01 [facility] [address], [place] [id number] MD Bebeto Camaar MD Phone: [phone] Performed at: 02 [facility] [address] [place], [place] [id number] MD Sampson Putnam MD Phone: [phone]
== END 2020-01-06 16:45 | disposition home or self-care (01) | DRG 616 ==
LOC: 5 NORTH 18:30
PROVIDERS: ADMIT Internal Medicine; ATTEND Internal Medicine
PROC: 0JBQ0ZZ Excision of Right Foot Subcutaneous Tissue and Fascia, Open Approach (ICD-10-PCS; 2019-12-31)
PROC: 0Y6Q0Z1 Detachment at Left 1st Toe, High, Open Approach (ICD-10-PCS; principal; 2019-12-31 14:15)
DX: E11.69 Type 2 diabetes mellitus with other specified complication (principal); I50.23 Acute on chronic systolic (congestive) heart failure; M86.179 Other acute osteomyelitis, unspecified ankle and foot; E11.52 Type 2 diabetes mellitus with diabetic peripheral angiopathy with gangrene; I13.0 Hypertensive heart and chronic kidney disease with heart failure and stage 1 through stage 4 chronic kidney disease, or unspecified chronic kidney disease; I42.8 Other cardiomyopathies; I47.2 Ventricular tachycardia; L03.115 Cellulitis of right lower limb; L03.116 Cellulitis of left lower limb; N17.0 Acute kidney failure with tubular necrosis; N18.4 Chronic kidney disease, stage 4 (severe); E11.22 Type 2 diabetes mellitus with diabetic chronic kidney disease; E11.40 Type 2 diabetes mellitus with diabetic neuropathy, unspecified; E11.621 Type 2 diabetes mellitus with foot ulcer; E11.649 Type 2 diabetes mellitus with hypoglycemia without coma; E78.5 Hyperlipidemia, unspecified; F14.90 Cocaine use, unspecified, uncomplicated; G25.81 Restless legs syndrome; G89.4 Chronic pain syndrome; I25.10 Atherosclerotic heart disease of native coronary artery without angina pectoris; I16.0 Hypertensive urgency; I25.5 Ischemic cardiomyopathy; L97.519 Non-pressure chronic ulcer of other part of right foot with unspecified severity; L97.529 Non-pressure chronic ulcer of other part of left foot with unspecified severity; W22.8XXA Striking against or struck by other objects, initial encounter; Z79.899 Other long term (current) drug therapy; Z82.49 Family history of ischemic heart disease and other diseases of the circulatory system; Z86.73 Personal history of transient ischemic attack (TIA), and cerebral infarction without residual deficits; Z89.422 Acquired absence of other left toe(s); Z91.19 Patient's noncompliance with other medical treatment and regimen; Z95.5 Presence of coronary angioplasty implant and graft; F32.9 Major depressive disorder, single episode, unspecified; G47.33 Obstructive sleep apnea (adult) (pediatric); K21.9 Gastro-esophageal reflux disease without esophagitis; M19.90 Unspecified osteoarthritis, unspecified site; Z20.828 Contact with and (suspected) exposure to other viral communicable diseases
CPT/HCPCS: 36415; 71045; 78315; 80048; 80053; 80061; 80069; 80307; 82962; 83735; 84443; 85025; 85027; 87071; 87075; 87077; 87186; 87426; 87493; 88305; 88311; 93005; 93306; 93925; 93975; A7015; A9503; J0360; J1815; J1940; J2020; J2185; J2270; J2370; J2405; J2543; J2704; J3010; J3490; J7030; A4461; G0378; U0003-CS

== ENCOUNTER 2020-01-18 12:57 | Inpatient (IN) | payer MEDICAID ==
[~2020-01-18] VITALS: Ht 175.3 cm; Wt 102.7 kg
[~2020-01-18 12:57] MED LIST changes: +AMLO10TA8 PO; +ASPI81TA59 PO; +CARV25TA PO; +CLON0.1T PO; +FURO20TA3 PO; +GLIM4TAB PO; +HYDR-2763 PO; +HYDR100T24 PO; +ISOS60TA2 PO; +LINA5TAB PO; +OXYC10TA46 PO; +ROPI0.5T4 PO
[2020-01-18] MEDS ORDERED: VANCOMYCIN PER PHARMACY MC PRN (14:45)
--- NOTE | 2020-01-18 14:45 | PHYS DOC ---
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 Cheema, 12/30, was on meropenem), presents to the ED sent in by wound care nurse with concern for swelling and redness to the left foot. From 12/2019 dc summary: pt was on IV Zosyn and meropenem, wound culture has grown Escherichia marcescens and Pseudomonas aeruginosa sensitive to ciprofloxacin. Pt states he took 9 days of antibiotics after he was discharged from the hospital. States left foot has become more red and swollen for the past 2 days. States dog jumped on his left foot 2 days ago but no dog bite injury. ROS: Denies associated fever, chills, cough, sore throat, dyspnea, chest pain, nausea, vomiting, diarrhea, abdominal pain, joint swelling, back or flank pain, diarrhea, hematuria. Review of Systems: Review of Systems: Constitutional: Denies fever or chills. [] Eyes: Denies change in visual acuity. [] HENT: Denies nasal congestion or sore throat. [] Respiratory: Denies cough or shortness of breath. [] Cardiovascular: Denies chest pain or edema. [] GI: Denies abdominal pain, nausea, vomiting, or diarrhea. [] : Denies dysuria. [] Musculoskeletal: Denies back pain or joint pain. [] Neurologic: Denies headache, focal weakness or sensory changes. [] Endocrine: Denies polyuria or polydipsia. [] Lymphatic: Denies swollen glands. [] Psychiatric: Denies depression or anxiety. [] Allergies: Allergies: Allergies Coded Allergies Type Severity Reaction Last Updated Verified No Known Drug Allergies 01/18/20 No Physical Exam: PE: Constitutional: Well developed, well nourished, no acute distress, non-toxic appearance. [] HENT: Normocephalic, atraumatic, bilateral external ears normal, Eyes: EOMI, conjunctiva normal, no discharge. [] Neck: Normal range of motion, no tenderness, supple, no stridor. [] Cardiovascular:Heart rate regular rhythm, no murmur [] Lungs & Thorax: Bilateral breath sounds clear to auscultation [] Abdomen: Bowel sounds normal, soft, no tenderness, no masses, no pulsatile masses. [] Skin: Warm, dry, no erythema, +erythema and increased warmth to dorsum left foot and left toe, no crepitus/fluctuance or pain out of proportion Back: No tenderness, no CVA tenderness. [] Extremities: No tenderness, no cyanosis, no clubbing, ROM intact, +bl LE edema Neurologic: Alert and oriented X 3, normal motor function, normal sensory function, no focal deficits noted. [] Psychologic: Affect normal, judgement normal, mood normal. [] Current Patient Data: Vital Signs: Vital Signs Date Time Temp Pulse Resp B/P (MAP) Pulse Ox O2 Delivery O2 Flow Rate FiO2 01/18/20 14:00 97.7 83 20 162/77 (105) 100 Room Air 97.7 EKG: EKG: [] Radiology/Procedures: Radiology/Procedures: IMAGING REPORT Signed PATIENT: BERTRAND COLMENARES SACCOUNT: [id number] : 1965 LOCATION: ER AGE: 54 SEX: M EXAM STATUS: REG ER ORD. PHYSICIAN: ROSITA LEMUS DO REASON: concern for osteo PROCEDURE: FOOT LEFT 3V FOOT LEFT 3V History: Reason: concern for osteo / Spl. Instructions: / History: Decreased pulses. Diabetic wounds. Bilateral great toes. Technique: 3 views left foot. Comparison: None. Findings: Amputation of the left first digit to the level of the proximal phalanx base. Amputation of the second digit to the level of the proximal phalanx shaft. There is cortical irregularity of the amputation sites. There is overlying soft tissue irregularity and swelling. Vascular calcifications. Dorsal foot soft tissue swelling. Plantar calcaneal spur. Mild first MTP DJD. Impression: 1. Left first and second digit amputation with cortical irregularity, may relate to postoperative changes. MRI can further evaluate for osteomyelitis. 2. Foot soft tissue swelling with first digit soft tissue wounds. Electronically signed by: Rory Garcia DO (01/18/2020 3:32 PM) [facility] DICTATED and SIGNED BY: RORY GARCIA DO DATE: 01/18/20 1532 Course & Med Decision Making: Course & Med Decision Making Pertinent Labs and Imaging studies reviewed. (See chart for details) Concern for left foot cellulitis in the setting of acute on chronic kidney disease. Started on abx, does not meet sirs criteria. Will admit for further medical management and surgery and nephrology consultation. Patient stable at time of admission and agrees with this plan. [employer] Disclaimer: Dragon Disclaimer: This electronic medical record was generated, in whole or in part, using a voice recognition dictation system. Departure Departure Impression: Primary Impression: Cellulitis of left foot Additional Impression: Acute on chronic renal insufficiency Disposition: ADMITTED INPATIENT Admitting Physician: LIZ (Dr. Chacon) Condition: STABLE Referrals: SUSAN MARY DO (PCP) Justicifation of Admission Dx: Justifications for Admission: Justification of Admission Dx: Yes Acute Renal Failure: Serum Cr > 4mg/dL Cellulitis: Cellulitis ROSITA LEMUS DO Jan 18, 2020 14:45
[2020-01-18] MEDS ORDERED: VANCOMYCIN 2 GM in IV NORMAL SALINE 500ML BAG 500 ML IV ONE (15:00)
[2020-01-18 15:04] LABS: BASO % 0 % (0-3); EOS # 0.1 x10^3/uL (0.0-0.7); EOS % 0 % (0-3); HEMATOCRIT 29.1 % (39.0-53.0); HEMOGLOBIN 9.9 g/dL (13.0-17.5); LYMPH # 0.8 x10^3/uL (1.0-4.8); LYMPH % 7 % (24-48); MEAN CORPUSCULAR HEMOGLOBIN 29 pg (25-35); MEAN CORPUSCULAR HGB CONC 34 g/dL (31-37); MEAN CORPUSCULAR VOLUME 84 fL (79-100); MONO # 1.4 x10^3/uL (0.0-1.1); MONO % 12 % (0-9); NEUT # 9.9 x10^3/uL (1.8-7.7); NEUT % 81 % (31-73); PLATELET COUNT 191 x10^3/uL (140-400); RED BLOOD COUNT 3.45 x10^6/uL (4.30-5.70); RED CELL DISTRIBUTION WIDTH 14.9 % (11.5-14.5); WHITE BLOOD COUNT 12.2 x10^3/uL (4.0-11.0)
[2020-01-18 15:09] LABS: CALCIUM 8.6 mg/dL (8.5-10.1); CREATININE 4.4 mg/dL (0.7-1.3); GFR 14.1; POTASSIUM 3.8 mmol/L (3.5-5.1)
[2020-01-18 15:15] LABS: ALBUMIN 2.7 g/dL (3.4-5.0); ALBUMIN/GLOBULIN RATIO 0.6 (1.0-1.7); TOTAL BILIRUBIN 0.3 mg/dL (0.2-1.0); TOTAL PROTEIN 7.5 g/dL (6.4-8.2)
[2020-01-18] MEDS ORDERED: ACETAMINOPHEN 500 MG TABLET PO ONE (15:15)
--- NOTE | 2020-01-18 15:34 | RAD ---
FOOT LEFT 3V History: Reason: concern for osteo / Spl. Instructions: / History: Decreased pulses. Diabetic wounds. Bilateral great toes. Technique: 3 views left foot. Comparison: None. Findings: Amputation of the left first digit to the level of the proximal phalanx base. Amputation of the second digit to the level of the proximal phalanx shaft. There is cortical irregularity of the amputation sites. There is overlying soft tissue irregularity and swelling. Vascular calcifications. Dorsal foot soft tissue swelling. Plantar calcaneal spur. Mild first MTP DJD. Impression: 1. Left first and second digit amputation with cortical irregularity, may relate to postoperative changes. MRI can further evaluate for osteomyelitis. 2. Foot soft tissue swelling with first digit soft tissue wounds. Electronically signed by: Rory Garcia DO (01/18/2020 3:32 PM) [facility]
--- NOTE | 2020-01-18 15:37 | RAD ---
TOES RIGHT History: Reason: concern for osteo / Spl. Instructions: / History: Technique: PA view of the foot and 2 additional views of the first digit. Comparison: None. Findings: First digit soft tissue swelling and skin irregularity. Cortical irregularity and erosion of the first distal tuft. Mild first MTP DJD. Extensive vascular calcifications. Postoperative changes of the ankle. Impression: 1. Right first distal tuft cortical irregularity and erosion, concerning for osteomyelitis. MRI can further evaluate extent as clinically warranted. 2. First digit soft tissue swelling and irregularity. Electronically signed by: Rory Garcia DO (01/18/2020 3:34 PM) [facility]
--- NOTE | 2020-01-18 17:21 | PDOC1 ---
History and Physical Date of Service: DOS: DATE: 01/18/20 TIME: 17:17 Chief Complaint: Problems: (1) Unstable angina (2) Chest pain (3) Congestive heart failure (4) CHF (congestive heart failure) (5) Cardiomyopathy (6) Kidney failure (7) Hyperkalemia (8) Sepsis (9) Elevated troponin (10) D-dimer, elevated (11) Pneumonia (12) Foot osteomyelitis, left (13) Hypertensive urgency (14) Acute on chronic renal insufficiency (15) Cellulitis of left foot Chief Complain: Toe infections History of Present Illness: HPI: This is a middle-aged white male who has severe peripheral vascular disease and diabetic feet Basically he has toes that are becoming infected especially the tips of the greater toes He has had surgery with Dr. Cheema recently on 12 30 and is been on meropenem His wound care nurse is concerned that the swelling is getting worse and that he has associated redness and some drainage He apparently is also been on IV Zosyn and meropenem he is got some wound cultures that grew at least 2 different organisms Apparently the patient was on 9 days of IV antibiotic biotics and was discharged Since then his symptoms have worsened I discussed the case with ER physician were going to meet the patient in consult orthopedics and infectious disease and Dr. Cheema Past Medical/Surgical History: PMH/PSH: Past Medical History: Arthritis, CHF, CVA, Diabetes-Type II, Hypertension, Pneumonia, Other Additional Past Medical Histor: HERNIATED DISC IN BACK,chronic back pain,RLS, BLE neurop,BACK FX Past Surgical History: Angioplasty, Tonsillectomy, Other Additional Past Surgical Histo: L ANKLE/WRIST ORIF,CARDIAC STENTS, LT great toe ampt Smoking Status: Never Smoker Alcohol Use: None Drug Use: None Allergies: Allergies: Coded Allergies: No Known Drug Allergies (Unverified , 01/18/20) Family History: Family History: Peripheral vascular disease Social History: Social History: He does not drink smoke or take drugs Current Medications: Current Medications Current Medications Vancomycin HCl (Vanco Per Pharmacy) 1 each PRN DAILY PRN MC SEE COMMENTS; Start 01/18/20 at 14:45; Status UNV Vancomycin HCl 2 gm/Sodium Chloride 500 ml @ 250 mls/hr 1X ONCE IV Last administered on 01/18/20at 15:07; Start 01/18/20 at 15:00; Stop 01/18/20 at 16:59; Status DC Acetaminophen (Tylenol) 1,000 mg 1X ONCE PO Last administered on 01/18/20at 15:28; Start 01/18/20 at 15:15; Stop 01/18/20 at 15:18; Status DC Active Scripts Active Hydrocodone-Apap 10-325 (Hydrocodone Bit/Acetaminophen) 1 Tab Tablet 1 Tab PO Q4H PRN 30 Days Oxycontin (Oxycodone HCl) 10 Mg Tab.er.12h 1 Tab PO BID MDD 2 Tablet(s) 30 Days Amlodipine Besylate 10 Mg Tablet 10 Mg PO DAILY 30 Days Clonidine Hcl 0.1 Mg Tablet 1 Tab PO TID 30 Days Isosorbide Mononitrate Er (Isosorbide Mononitrate) 60 Mg Tab.er.24h 1 Tab PO DAILY Hydralazine Hcl 100 Mg Tablet 1 Tab PO TID Atorvastatin Calcium 40 Mg Tablet 40 Mg PO QHS 30 Days Plavix (Clopidogrel Bisulfate) 75 Mg Tablet 75 Mg PO DAILYWBKFT Reported Trazodone Hcl 50 Mg Tablet 1 Tab PO QHS Gabapentin (Gabapentin) 300 Mg Capsule 300 Mg PO BID Children's Aspirin (Aspirin) 81 Mg Tab.chew 1 Tab PO DAILY 30 Days Coreg (Carvedilol) 25 Mg Tablet 25 Mg PO BIDWMEALS Ropinirole Hcl 0.5 Mg Tablet 0.5 Mg PO HS Protonix (Pantoprazole Sodium) 20 Mg Tablet.dr 2 Tab PO BID Temazepam 30 Mg Capsule 1 Cap PO QHS ROS: Review of Systems Review of System REVIEW OF SYSTEMS: GENERAL: Denies weakness SKIN: No bruising, hair changes or rashes. EYES: No blurred, double or loss of vision. NOSE AND THROAT: No history of nosebleeds, hoarseness or sore throat. HEART: No history of palpitations, chest pain or shortness of breath on exertion. LUNGS: Denies cough, hemoptysis, wheezing or shortness of breath. GASTROINTESTINAL: Denies changes in appetite, nausea, vomiting, diarrhea or constipation. GENITOURINARY: No history of frequency, urgency, hesitancy or nocturia. NEUROLOGIC: Denies history of numbness, tingling, or tremor. PSYCHIATRIC: No history of panic, anxiety or depression. ENDOCRINE: No history of heat or cold intolerance, polyuria or polydipsia. EXTREMITIES: Complains of bilateral toe pain and drainage Physical Exam: Vital Signs: Vital Signs Date Time Temp Pulse Resp B/P (MAP) Pulse Ox O2 Delivery O2 Flow Rate FiO2 01/18/20 14:00 97.7 83 20 162/77 (105) 100 Room Air 97.7 Physcial Exam: GEN: No apparent distress. Alert and oriented HEENT: Normal cephalic, atraumatic, external auditory canals are patent EYES: Extraocular muscles are intact, pupil are equally round and reactive to light and accommodation MUSCULOSKELETAL: Well developed , well nourished, good range of motion ENDOCRINE: No thyromegaly was palpated LYMPHATICS: No cervical chain or axillary nodes were noted HEMATOPOIETIC: No bruising NECK: Supple, no JVD, no thyromegaly was noted LUNGS: Clear to auscultation in all lung huggins without rhonchi or wheezing HEART: RRR, S!, S2 present. Peripheral pulses intact, no obvious murmurs noted ABDOMEN: Soft, nontender. Positive bowel sounds, no organomegaly, normal bowel sounds EXTREMITIES: The tips of both toes have dressings the left one is draining some there are some old sutures appears to be painful NEUROLOGIC: Normal speech and tone. A&O x 3, moves all extremities, no obvious focal deficits PSYCHIATRIC: Normal affect, normal mood. Stable SKIN: No ulcerations or rashes, good skin turgor, no jaundice VASCULAR: Good capillary refill, neurovascular bundle appears to be intact Labs: Labs: Laboratory Tests Test 01/18/20 14:41 White Blood Count 12.2 x10^3/uL (4.0-11.0) Red Blood Count 3.45 x10^6/uL (4.30-5.70) Hemoglobin 9.9 g/dL (13.0-17.5) Hematocrit 29.1 % (39.0-53.0) Mean Corpuscular Volume 84 fL (79-100) Mean Corpuscular Hemoglobin 29 pg (25-35) Mean Corpuscular Hemoglobin Concent 34 g/dL (31-37) Red Cell Distribution Width 14.9 % (11.5-14.5) Platelet Count 191 x10^3/uL (140-400) Neutrophils (%) (Auto) 81 % (31-73) Lymphocytes (%) (Auto) 7 % (24-48) Monocytes (%) (Auto) 12 % (0-9) Eosinophils (%) (Auto) 0 % (0-3) Basophils (%) (Auto) 0 % (0-3) Neutrophils # (Auto) 9.9 x10^3/uL (1.8-7.7) Lymphocytes # (Auto) 0.8 x10^3/uL (1.0-4.8) Monocytes # (Auto) 1.4 x10^3/uL (0.0-1.1) Eosinophils # (Auto) 0.1 x10^3/uL (0.0-0.7) Basophils # (Auto) 0.0 x10^3/uL (0.0-0.2) Sodium Level 132 mmol/L (136-145) Potassium Level 3.8 mmol/L (3.5-5.1) Chloride Level 98 mmol/L (98-107) Carbon Dioxide Level 23 mmol/L (21-32) Anion Gap 11 (6-14) Blood Urea Nitrogen 57 mg/dL (8-26) Creatinine 4.4 mg/dL (0.7-1.3) Estimated GFR (Cockcroft-Gault) 14.1 BUN/Creatinine Ratio 13 (6-20) Glucose Level 129 mg/dL (70-99) Lactic Acid Level 0.8 mmol/L (0.4-2.0) Calcium Level 8.6 mg/dL (8.5-10.1) Total Bilirubin 0.3 mg/dL (0.2-1.0) Aspartate Amino Transf (AST/SGOT) 16 U/L (15-37) Alanine Aminotransferase (ALT/SGPT) 19 U/L (16-63) Alkaline Phosphatase 89 U/L (46-116) Total Protein 7.5 g/dL (6.4-8.2) Albumin 2.7 g/dL (3.4-5.0) Albumin/Globulin Ratio 0.6 (1.0-1.7) Laboratory Tests Test 01/18/20 14:41 White Blood Count 12.2 x10^3/uL (4.0-11.0) Red Blood Count 3.45 x10^6/uL (4.30-5.70) Hemoglobin 9.9 g/dL (13.0-17.5) Hematocrit 29.1 % (39.0-53.0) Mean Corpuscular Volume 84 fL (79-100) Mean Corpuscular Hemoglobin 29 pg (25-35) Mean Corpuscular Hemoglobin Concent 34 g/dL (31-37) Red Cell Distribution Width 14.9 % (11.5-14.5) Platelet Count 191 x10^3/uL (140-400) Neutrophils (%) (Auto) 81 % (31-73) Lymphocytes (%) (Auto) 7 % (24-48) Monocytes (%) (Auto) 12 % (0-9) Eosinophils (%) (Auto) 0 % (0-3) Basophils (%) (Auto) 0 % (0-3) Neutrophils # (Auto) 9.9 x10^3/uL (1.8-7.7) Lymphocytes # (Auto) 0.8 x10^3/uL (1.0-4.8) Monocytes # (Auto) 1.4 x10^3/uL (0.0-1.1) Eosinophils # (Auto) 0.1 x10^3/uL (0.0-0.7) Basophils # (Auto) 0.0 x10^3/uL (0.0-0.2) Sodium Level 132 mmol/L (136-145) Potassium Level 3.8 mmol/L (3.5-5.1) Chloride Level 98 mmol/L (98-107) Carbon Dioxide Level 23 mmol/L (21-32) Anion Gap 11 (6-14) Blood Urea Nitrogen 57 mg/dL (8-26) Creatinine 4.4 mg/dL (0.7-1.3) Estimated GFR (Cockcroft-Gault) 14.1 BUN/Creatinine Ratio 13 (6-20) Glucose Level 129 mg/dL (70-99) Lactic Acid Level 0.8 mmol/L (0.4-2.0) Calcium Level 8.6 mg/dL (8.5-10.1) Total Bilirubin 0.3 mg/dL (0.2-1.0) Aspartate Amino Transf (AST/SGOT) 16 U/L (15-37) Alanine Aminotransferase (ALT/SGPT) 19 U/L (16-63) Alkaline Phosphatase 89 U/L (46-116) Total Protein 7.5 g/dL (6.4-8.2) Albumin 2.7 g/dL (3.4-5.0) Albumin/Globulin Ratio 0.6 (1.0-1.7) Assessment/Plan Assessment/Plan Severe peripheral vascular disease with bilateral toe infections worse on the left than the right Acute kidney injury Plan IV antibiotics Wound care Consult Dr. Cheema Consult Dr. Martinez Consult infectious disease Consult orthopedics Home meds DVT prophylaxis Full code Long-term prognosis guarded LES ZAHO III DO Jan 18, 2020 17:21
--- NOTE | 2020-01-18 18:08 | NUR ---
Pharmacy Vancomycin Dosing Note S:Consulted to monitor and dose vancomycin started 01/18/20. O:BERTRAND COLMENARES is a 54 year old M with Cellulitis Height: 5 feet, 10 inches Weight: 87.6 kg [place] Body Weight: 73.00 Adjusted Body Weight: 78.84 Dosing Weight: Actual LABS: Last BUN: 57 Last Creatinine: 4.4 Creatinine Clearance: 22 mL/min Last WBC: 12.2 Last Procalcitonin: Tmax (past 24 hours): 97.7 Last dose given 01/18/20 at 1507 Vancomycin Dosing: Loading Dose: 2000 mg x1 Dosing Weight: Actual Target Trough: 10-20 A: Based on: weight and renal function P: 1. Dose Vancomycin 2000 mg IV One Time 2. Follow up doses and levels to be ordered depending on renal function changes 3. Pharmacy will continue to monitor, follow and adjust therapy as needed. Alley Fitch RPH, 01/18/20 [id number]
[2020-01-18 22:05] VITALS: BP 130/77
--- NOTE | 2020-01-18 22:36 | NUR ---
Pt.arrived around 2205 via bed from ED w/ L-foot cellulitis and LEATHA. He is A/O x3 and will make needs known.
[2020-01-18] MEDS ORDERED: HYDROcodone/APAP 10/325 1 TAB TABLET PO PRN (23:00)
[2020-01-19] MEDS: PANTOPRAZOLE 40 MG TABLET.DR. PO SCH ×3 (00:30→16:49)
[2020-01-19] MEDS: CARVEDILOL 12.5 MG TABLET. PO SCH ×3 (00:30→16:53)
[2020-01-19] MEDS: TEMAZEPAM 15 MG CAPSULE PO SCH ×2 (00:41→21:43)
[2020-01-19] MEDS: traZODone 50 MG TABLET. PO SCH ×2 (00:41→21:42)
[2020-01-19] MEDS: rOPINIRole 0.25 MG TABLET. PO SCH ×2 (00:41→21:43)
[2020-01-19] MEDS: oxyCODONE ER 10 MG TAB.ER.12H PO SCH ×3 (00:42→21:42)
[2020-01-19] MEDS: HYDROcodone/APAP 10/325 1 TAB TABLET PO PRN ×4 (02:14→21:47)
[2020-01-19 03:00] VITALS: BP 154/94
[2020-01-19 05:57] LABS: CREATININE 4.2 mg/dL (0.7-1.3); GFR 14.9
--- NOTE | 2020-01-19 06:26 | NUR ---
Notified Dr. Carola Leonardo about consult. He will see pt. later today and said it is okay to have a regular diet. Notified Dr. Cheema's and Dr. Martinez's answering service about consult. Awaiting a callback.
[2020-01-19 07:00] VITALS: BP 150/87
[2020-01-19] MEDS: ASPIRIN CHEWABLE 81 MG TABLET. PO SCH (08:00)
--- NOTE | 2020-01-19 08:57 | PDOC2 ---
CONSULT Date of Service Date of Service DATE: 01/19/20 TIME: 08:33 Reason for Consult Reason for Consult: Left foot cellulitis Right first toe tip wound Referring Physician Referring Physician: Dr. Chacon Identification/Chief Complaint Chief Complaint Purulent drainage left first toe incision, redness and swelling. Source Source: Chart review, Patient History of Present Illness Reason for Visit: This is a pleasant 54-year-old male well-known to our practice who is admitted with increasing redness and swelling is his left foot. Patient had a partial first toe amputation on December 31, [address] Cheema. The incision is almost healed. Now he has developed some worsening erythema, swelling and purulent drainage from a small punctate portion of the incision. Patient reports some trauma to his toe he states that "his dog fell on top of his foot". In addition he has a non-healing wound right first toe tip. There is no associated erythema, swelling or drainage. He has palpable distal pulses bilateral. He has been on antibiotics, he reported some diarrhea and adjustments were made to the antibiotics. He denies any fever or chills, no nausea or vomiting. He reports he has a post op shoe but has been wearing his "work boots". Past Medical History Cardiovascular: CAD, CHF, HTN, Hyperlipidemia, Other Pulmonary: Other CENTRAL NERVOUS SYSTEM: Other GI: GERD Psych: Depression Musculoskeletal: Other Renal/: Chronic renal insuff Endocrine: Diabetes Past Surgical History Past Surgical History: Tonsillectomy, Other (Left partial toe amputation right toe tip debridement) Family History Family History: Coronary Artery Disease Social History No ALCOHOL: none Drugs: Other Lives: with Family Current Problem List Problem List Problems Medical Problems: (1) Acute on chronic renal insufficiency Status: Acute (2) Cellulitis of left foot Status: Acute Current Medications Current Medications Current Medications Vancomycin HCl (Vanco Per Pharmacy) 1 each PRN DAILY PRN MC SEE COMMENTS Last administered on 01/18/20at 18:07; Start 01/18/20 at 14:45 Vancomycin HCl 2 gm/Sodium Chloride 500 ml @ 250 mls/hr 1X ONCE IV Last administered on 01/18/20at 15:07; Start 01/18/20 at 15:00; Stop 01/18/20 at 16:59; Status DC Acetaminophen (Tylenol) 1,000 mg 1X ONCE PO Last administered on 01/18/20at 15:28; Start 01/18/20 at 15:15; Stop 01/18/20 at 15:18; Status DC Amlodipine Besylate (Norvasc) 10 mg DAILY PO ; Start 01/19/20 at 09:00 Aspirin (Aspirin Chewable) 81 mg DAILYWBKFT PO ; Start 01/19/20 at 08:00 Atorvastatin Calcium (Lipitor) 40 mg QHS PO ; Start 01/19/20 at 21:00 Clonidine HCl (Catapres) 0.1 mg TID PO ; Start 01/19/20 at 09:00 Clopidogrel Bisulfate (Plavix) 75 mg DAILYWBKFT PO ; Start 01/19/20 at 08:00 Gabapentin (Neurontin) 300 mg BID PO ; Start 01/19/20 at 09:00 Acetaminophen/ Hydrocodone Bitart (Lortab 10/325) 1 tab Q4H PRN PO PAIN; Start 01/18/20 at 23:00; Stop 01/18/20 at 23:11; Status DC Oxycodone HCl (OxyCONTIN) 10 mg BID PO ; Start 01/19/20 at 09:00; Stop 01/18/20 at 23:11; Status DC Temazepam (Restoril) 30 mg QHS PO ; Start 01/19/20 at 21:00; Stop 01/18/20 at 23:11; Status DC Trazodone HCl (Desyrel) 50 mg QHS PO ; Start 01/19/20 at 21:00; Stop 01/18/20 at 23:11; Status DC Carvedilol (Coreg) 25 mg BIDWMEALS PO ; Start 01/19/20 at 00:30 Hydralazine HCl (Apresoline) 100 mg TID PO ; Start 01/19/20 at 00:30 Isosorbide Mononitrate (Imdur) 60 mg DAILY PO ; Start 01/19/20 at 09:00 Pantoprazole Sodium (Protonix) 40 mg BIDAC PO ; Start 01/19/20 at 00:30 Non-Formulary Medication (Ropinirole Hcl ) 0.5 mg HS PO ; Start 01/19/20 at 21:00; Stop 01/18/20 at 23:11; Status DC Acetaminophen/ Hydrocodone Bitart (Lortab 10/325) 1 tab PRN Q4HRS PRN PO PAIN Last administered on 01/19/20at 02:14; Start 01/18/20 at 23:15 Oxycodone HCl (OxyCONTIN) 10 mg BID PO Last administered on 01/19/20at 00:42; Start 01/19/20 at 00:30 Temazepam (Restoril) 30 mg QHS PO Last administered on 01/19/20at 00:41; Start 01/19/20 at 00:30 Trazodone HCl (Desyrel) 50 mg QHS PO Last administered on 01/19/20at 00:41; Start 01/19/20 at 00:30 Ropinirole HCl (Requip) 0.5 mg HS PO Last administered on 01/19/20at 00:41; Start 01/19/20 at 00:30 Active Scripts Active Hydrocodone-Apap 10-325 (Hydrocodone Bit/Acetaminophen) 1 Tab Tablet 1 Tab PO Q4H PRN 30 Days Oxycontin (Oxycodone HCl) 10 Mg Tab.er.12h 1 Tab PO BID MDD 2 Tablet(s) 30 Days Amlodipine Besylate 10 Mg Tablet 10 Mg PO DAILY 30 Days Clonidine Hcl 0.1 Mg Tablet 1 Tab PO TID 30 Days Isosorbide Mononitrate Er (Isosorbide Mononitrate) 60 Mg Tab.er.24h 1 Tab PO DAILY Hydralazine Hcl 100 Mg Tablet 1 Tab PO TID Atorvastatin Calcium 40 Mg Tablet 40 Mg PO QHS 30 Days Plavix (Clopidogrel Bisulfate) 75 Mg Tablet 75 Mg PO DAILYWBKFT Reported Trazodone Hcl 50 Mg Tablet 1 Tab PO QHS Gabapentin (Gabapentin) 300 Mg Capsule 300 Mg PO BID Children's Aspirin (Aspirin) 81 Mg Tab.chew 1 Tab PO DAILY 30 Days Coreg (Carvedilol) 25 Mg Tablet 25 Mg PO BIDWMEALS Ropinirole Hcl 0.5 Mg Tablet 0.5 Mg PO HS Protonix (Pantoprazole Sodium) 20 Mg Tablet.dr 2 Tab PO BID Temazepam 30 Mg Capsule 1 Cap PO QHS Allergies Allergies: Coded Allergies: No Known Drug Allergies (Unverified , 01/18/20) ROS Review of System Constitutional: Denies fever or chills Eyes: Denies any visual disturbances HENT: Denies nasal congestion or sore throat Respiratory: Denies cough or shortness of breath Cardiovascular: Denies any palpitations or chest pain GI: Denies abdominal pain, nausea, vomiting, + diarrhea : Denies dysuria or hematuria Musculoskeletal: As per HPI Integument: As per HPI Neurologic: No gross deficits Physical Exam Physical Exam Gen.: Alert and oriented -3. Cardiac: Heart rate regular. Lungs: Nonlabored respirations. Abdomen: Soft, nontender, nondistended, no palpable masses. Extremities: 2+ bilateral femoral and distal pulses. Skin: Right first toe tip with full-thickness skin ulceration, mild fibrin slough. Left first toe amputation site incision almost healed. Mild erythema and swelling in toe and into forefoot. There is purulent drainage from a punctate wound at the first and second webspace. Neurological: Motor and sensation intact Vitals VITALS Vital Signs Date Time Temp Pulse Resp B/P (MAP) Pulse Ox O2 Delivery O2 Flow Rate FiO2 01/19/20 07:00 97.9 98 18 150/87 (108) 98 Room Air 97.9 Labs Labs Laboratory Tests Reviewed Images Images Right first toe Xray Impression: 1. Right first distal tuft cortical irregularity and erosion, concerning for osteomyelitis. MRI can further evaluate extent as clinically warranted. 2. First digit soft tissue swelling and irregularity. Left foot Xray Impression: 1. Left first and second digit amputation with cortical irregularity, may relate to postoperative changes. MRI can further evaluate for osteomyelitis. 2. Foot soft tissue swelling with first digit soft tissue wounds. Assessment/Plan Assessment/Plan 54 year old male with history of right toe tip debridement and left first toe partial amputation with left foot cellulitis and purulent drainage from amputation site and non-healing right first toe. Dr. Courtney has opened the draining area and expressed small amount of drainage. Would recommend continued antibiotics and local wound care. Recommend monitor closely and if it does not improve would recommend surgical debridement with possible left first toe metatarsal amputation. Will tentatively schedule for Friday in order to reserve OR time and cancel if not needed. Consult Infectious Disease for antibiotic management and recent diarrhea. Can continue Plavix and Aspirin. Discussed plan with the patient and he expresses understanding and is willing to proceed. Patient was seen and examined with the nurse practitioner and I agree with the above documented findings. Patient should be started on broad-spectrum IV antibiotics with vancomycin and Zosyn. The right first toe ulceration is stable and I recommend dry dressings to the wound with appropriate offloading. We will plan on operative debridement of the left first toe amputation site on Friday if necessary. We will see how antibiotics work for his cellulitis. The surgical sutures were removed as well. All questions were answered to patient satisfaction regarding the plan. Ezra Courtney DO, CIERA, SIL ZHOU APRN Jan 19, 2020 08:57 EZRA COURTNEY DO Jan 19, 2020 09:19
[2020-01-19] MEDS ORDERED: oxyCODONE ER 10 MG TAB.ER.12H PO SCH (09:00)
--- NOTE | 2020-01-19 09:00 | NUR ---
Wound Care: Pt seen at [facility] yesterday afternoon for worsening of left great toe DFU s/p amputation and right great toe DFU. left great toe appeared red, warm, swollen and draining, pt also complaining of increase pain on that foot. Recommendations by Dr. Toure to go to ER for admission. Pt was sent to ED via WC from [facility]. Wound pictures and wound care dressing recommendations sent with pt, recommending to cover both wounds with aquacel ag and cover with abd and kerlix. Wound culture taken at [facility]. Wound care will follow up with pt on 01/18.
[2020-01-19] MEDS: ISOSORBIDE MONONITRATE ER 30 MG TAB.ER.24H PO SCH (09:05)
[2020-01-19] MEDS: CLOPIDOGREL BISULFATE 75 MG TABLET PO SCH (09:05)
[2020-01-19] MEDS: amLODIPine BESYLATE 10 MG TABLET PO SCH (09:06)
[2020-01-19] MEDS: GABAPENTIN 300 MG CAPSULE. PO SCH ×2 (09:07→21:42)
[2020-01-19] MEDS: cloNIDine HCL 0.1 MG TABLET PO SCH ×3 (09:07→21:42)
[2020-01-19] MEDS ORDERED: PIPERACILLIN/TAZOBACTAM 2.25 GM in IV NORMAL SALINE 50ML 50 ML IV SCH (09:30)
--- NOTE | 2020-01-19 10:22 | PDOC ---
Infectious Disease Note Subjective Subjective Patient is known to us. Recently discharged from the hospital on p.o. ciprofloxacin after having partial amputation of the left big toe. Patient says he was doing well he did not have any problem with the toe until a few days ago his big dog jumped on himself and then landed on the toe he did have some bleeding from the toe and and then the next day started noticing pus was coming out and she came to the ER and was admitted patient did have some redness on the foot and open area at the end of the incision with purulent drainage. Patient did have a Pseudomonas and Serratia last admission. Patient is feeling good denies any nausea vomiting chest pain shortness of br eath abdominal pain urinary symptoms. He did have diarrhea ROS ROS As above Vital Sign Vital Signs Vital Signs Date Time Temp Pulse Resp B/P (MAP) Pulse Ox O2 Delivery O2 Flow Rate FiO2 01/19/20 09:08 Room Air 01/19/20 09:07 103 145/82 01/19/20 07:00 97.9 18 98 97.9 Physical Exam PHYSICAL EXAM GENERAL: Alert and oriented gentleman, not in distress. VITAL SIGNS: Stable. Afebrile. HEENT: NAD. NECK: Supple. No JVP, no lymphadenopathy. LUNGS: Clear. HEART: S1, S2 regular. ABDOMEN: Benign. EXTREMITIES: Left amputation site very well approximated incision except at the lateral and its open wound with the purulent drainage. Patient does have erythema of the left foot and warmth to the foot. Right big toe has superficial ulcer SKIN: Rest of skin examination unremarkable. NEUROLOGIC: The patient is alert, awake and appropriate. No focal neurologic deficit. Labs Lab Laboratory Tests Test 01/18/20 14:41 01/19/20 05:10 01/19/20 07:26 White Blood Count 12.2 x10^3/uL (4.0-11.0) Red Blood Count 3.45 x10^6/uL (4.30-5.70) Hemoglobin 9.9 g/dL (13.0-17.5) Hematocrit 29.1 % (39.0-53.0) Mean Corpuscular Volume 84 fL (79-100) Mean Corpuscular Hemoglobin 29 pg (25-35) Mean Corpuscular Hemoglobin Concent 34 g/dL (31-37) Red Cell Distribution Width 14.9 % (11.5-14.5) Platelet Count 191 x10^3/uL (140-400) Neutrophils (%) (Auto) 81 % (31-73) Lymphocytes (%) (Auto) 7 % (24-48) Monocytes (%) (Auto) 12 % (0-9) Eosinophils (%) (Auto) 0 % (0-3) Basophils (%) (Auto) 0 % (0-3) Neutrophils # (Auto) 9.9 x10^3/uL (1.8-7.7) Lymphocytes # (Auto) 0.8 x10^3/uL (1.0-4.8) Monocytes # (Auto) 1.4 x10^3/uL (0.0-1.1) Eosinophils # (Auto) 0.1 x10^3/uL (0.0-0.7) Basophils # (Auto) 0.0 x10^3/uL (0.0-0.2) Sodium Level 132 mmol/L (136-145) Potassium Level 3.8 mmol/L (3.5-5.1) Chloride Level 98 mmol/L (98-107) Carbon Dioxide Level 23 mmol/L (21-32) Anion Gap 11 (6-14) Blood Urea Nitrogen 57 mg/dL (8-26) Creatinine 4.4 mg/dL (0.7-1.3) 4.2 mg/dL (0.7-1.3) Estimated GFR (Cockcroft-Gault) 14.1 14.9 BUN/Creatinine Ratio 13 (6-20) Glucose Level 129 mg/dL (70-99) Lactic Acid Level 0.8 mmol/L (0.4-2.0) Calcium Level 8.6 mg/dL (8.5-10.1) Total Bilirubin 0.3 mg/dL (0.2-1.0) Aspartate Amino Transf (AST/SGOT) 16 U/L (15-37) Alanine Aminotransferase (ALT/SGPT) 19 U/L (16-63) Alkaline Phosphatase 89 U/L (46-116) Total Protein 7.5 g/dL (6.4-8.2) Albumin 2.7 g/dL (3.4-5.0) Albumin/Globulin Ratio 0.6 (1.0-1.7) Glucose (Fingerstick) 153 mg/dL (70-99) Micro GRAM STAIN Final Final NO ORGANISMS SEEN. SQUAMOUS EPI CELL:NONE SEEN PMN (WBCs):RARE Unless otherwise specified, Testing Performed by: [address] [address] For Inquires, the Physician may contact the Microbiology department at [phone] ANAEROBIC-AEROBIC CULTURE Preliminary Preliminary FEW GRAM NEGATIVE RODS on 01/02/20 at 1016 FINAL ID= [SERRATIA MARCESCENS] RARE GRAM NEGATIVE RODS on 01/03/20 at 1049 FINAL ID= [PSEUDOMONAS AERUGINOSA] SERRATIA MARCESCENS PSEUDOMONAS AERUGINOSA ANTIMICROBIAL SUSCEPTIBILITY Preliminary Comment NEG IZA 56 SERRATIA MARCESCENS ANTIBIOTIC RESULT INTERPRETATION AMPICILLIN/SULBACTAM >16/8 R AMIKACIN <=16 S AMPICILLIN >16 R AMOXICILLIN/K CLAVULANATE >16/8 R AZTREONAM <=4 S CEFTRIAXONE 32 R CEFTAZIDIME >16 R CEFOTAXIME >32 R CEFOXITIN 16 R* CONTINUED ON NEXT PAGE RUN DATE: 01/03/20 [facility] *LIVE* PAGE 2 RUN TIME: 1054 Specimen Inquiry SPEC: [id number] PATIENT: BERTRAND COLMENARES [id number] (Continued) Procedure Result ANTIMICROBIAL SUSCEPTIBILITY Preliminary (continued) CIPROFLOXACIN <=0.25 S CEFEPIME <=2 S CEFUROXIME >16 R CEFTAZIDIME/AVIBACTAM <=4 S ERTAPENEM <=0.5 S GENTAMICIN <=2 S LEVOFLOXACIN <=0.5 S MEROPENEM <=1 S PIPERACILLIN/TAZOBACTAM <=8 S TRIMETHOPRIM/SULFAMETHOXAZOLE <=0.5/9.5 S TETRACYCLINE >8 R TOBRAMYCIN <=2 S Unless otherwise specified, Testing Performed by: [address] [id number] For Inquires, the Physician may contact the Microbiology department at [phone] Objective: Assessment: Objective Assessment Left big toe chronic ulcer with bone scan positive for osteomyelitis. s/p amputation, closed on 12/[address] Cheema. Wound dehiscence with purulent drainage and cellulitis of the foot, Past culture + serratia and PSAE Right big toe ulcer, superficial. Bone scan is positive for osteomyelitis, but there is no clinical evidence of chronic or deep wound on to the right big toe. s/p debridement of necrotic skin & subcutaneous tissue on 12/30. Peripheral arterial disease. Coronary artery disease. Diabetes. Hypertension. Noncompliance. Diarrhea Plan Plan of Care Discontinue vancomycin. Discontinue Zosyn. Start meropenem. Surgery with I&D has been planned DULCE MARIA SRIVASTAVA MD Jan 19, 2020 10:22
[2020-01-19 11:00] VITALS: BP 124/77
[2020-01-19] MEDS ORDERED: PIPERACILLIN/TAZOBACTAM 3.375 GM in IV NORMAL SALINE 50ML 50 ML IV SCH (12:00)
--- NOTE | 2020-01-19 13:53 | PDOC ---
[employer] PROGRESS NOTE Date of Service DOS: DATE: 01/19/20 TIME: 13:44 Chief Complaint Chief Complaint Left first digit acute on chronic chronic ulcer concerning for osteomyelitis Right first digit superficial ulcer History of osteomyelitis status post amputation Peripheral arterial disease. Coronary artery disease. Diabetes. Hypertension. Medical nonadherence Acute renal failure second to vasomotor nephropathy Continue with IV antibiotics switched from Vanco Zosyn to IV meropenem Pending wound and blood cultures Appreciate infectious disease recommendations Appreciate Ortho recommendations Possible OR on Friday for left first digit amputation Heparin for DVT prophylaxis ADA diet Full code Discussed with RN and SW Dispo pending OR tomorrow or this Friday Surrogate decision maker is self History of Present Illness History of Present Illness Patient is 54-year-old male with severe peripheral vascular disease and bilateral foot ulcers where the toes have become infected and has history of osteomyelitis. Patient recently had surgery with Dr. Cheema on December 30. Wound care nurse has been concerned with swelling has been getting worse with purulent drainage and erythema. Patient has been seen by orthopedics and vascular surgery. They are planning for possible amputation this Friday01/19/2020 No acute events since admission. Patient seen and examined bedside. Patient is tolerating diet. Pain is well controlled. Patient's chart, labs, images were reviewed and discussed with RN Vitals/I&O Vitals/I&O: Vital Signs Date Time Temp Pulse Resp B/P (MAP) Pulse Ox O2 Delivery O2 Flow Rate FiO2 01/19/20 11:00 97.8 104 18 124/77 (93) 97 Room Air 97.8 I & O 01/18/20 01/18/20 01/19/20 15:00 23:00 07:00 Intake Total 500 ml 420 ml Balance 500 ml 420 ml Physical Exam Physical Exam: GENERAL: Alert and oriented gentleman, not in distress. VITAL SIGNS: Stable. Afebrile. HEENT: NAD. NECK: Supple. No JVP, no lymphadenopathy. LUNGS: Clear. HEART: S1, S2 regular. ABDOMEN: Benign. EXTREMITIES: Left amputation site very well approximated incision except at the lateral and its open wound with the purulent drainage. Patient does have erythema of the left foot and warmth to the foot. Right big toe has superficial ulcer SKIN: Rest of skin examination unremarkable. NEUROLOGIC: The patient is alert, awake and appropriate. No focal neurologic deficit. Lungs: Clear Labs Labs: Laboratory Tests Test 01/18/20 14:41 01/19/20 05:10 01/19/20 07:26 01/19/20 11:37 White Blood Count 12.2 x10^3/uL (4.0-11.0) Red Blood Count 3.45 x10^6/uL (4.30-5.70) Hemoglobin 9.9 g/dL (13.0-17.5) Hematocrit 29.1 % (39.0-53.0) Mean Corpuscular Volume 84 fL (79-100) Mean Corpuscular Hemoglobin 29 pg (25-35) Mean Corpuscular Hemoglobin Concent 34 g/dL (31-37) Red Cell Distribution Width 14.9 % (11.5-14.5) Platelet Count 191 x10^3/uL (140-400) Neutrophils (%) (Auto) 81 % (31-73) Lymphocytes (%) (Auto) 7 % (24-48) Monocytes (%) (Auto) 12 % (0-9) Eosinophils (%) (Auto) 0 % (0-3) Basophils (%) (Auto) 0 % (0-3) Neutrophils # (Auto) 9.9 x10^3/uL (1.8-7.7) Lymphocytes # (Auto) 0.8 x10^3/uL (1.0-4.8) Monocytes # (Auto) 1.4 x10^3/uL (0.0-1.1) Eosinophils # (Auto) 0.1 x10^3/uL (0.0-0.7) Basophils # (Auto) 0.0 x10^3/uL (0.0-0.2) Sodium Level 132 mmol/L (136-145) Potassium Level 3.8 mmol/L (3.5-5.1) Chloride Level 98 mmol/L (98-107) Carbon Dioxide Level 23 mmol/L (21-32) Anion Gap 11 (6-14) Blood Urea Nitrogen 57 mg/dL (8-26) Creatinine 4.4 mg/dL (0.7-1.3) 4.2 mg/dL (0.7-1.3) Estimated GFR (Cockcroft-Gault) 14.1 14.9 BUN/Creatinine Ratio 13 (6-20) Glucose Level 129 mg/dL (70-99) Lactic Acid Level 0.8 mmol/L (0.4-2.0) Calcium Level 8.6 mg/dL (8.5-10.1) Total Bilirubin 0.3 mg/dL (0.2-1.0) Aspartate Amino Transf (AST/SGOT) 16 U/L (15-37) Alanine Aminotransferase (ALT/SGPT) 19 U/L (16-63) Alkaline Phosphatase 89 U/L (46-116) Total Protein 7.5 g/dL (6.4-8.2) Albumin 2.7 g/dL (3.4-5.0) Albumin/Globulin Ratio 0.6 (1.0-1.7) Glucose (Fingerstick) 153 mg/dL (70-99) 169 mg/dL (70-99) Assessment and Plan Assessmemt and Plan Problems Medical Problems: (1) Acute on chronic renal insufficiency Status: Acute (2) Cellulitis of left foot Status: Acute Comment Review of Relevant I have reviewed the following items gavin (where applicable) has been applied. Medications: Current Medications Medications (Trade) Dose Ordered Sig/Jerri Route PRN Reason Start Time Stop Time Status Last Admin Dose Admin Vancomycin HCl (Vanco Per Pharmacy) 1 each PRN DAILY PRN MC SEE COMMENTS 01/18/20 14:45 01/19/20 11:05 DC 01/18/20 18:07 Vancomycin HCl 2 gm/Sodium Chloride 500 ml @ 250 mls/hr 1X ONCE IV 01/18/20 15:00 01/18/20 16:59 DC 01/18/20 15:07 Acetaminophen (Tylenol) 1,000 mg 1X ONCE PO 01/18/20 15:15 01/18/20 15:18 DC 01/18/20 15:28 Amlodipine Besylate (Norvasc) 10 mg DAILY PO 01/19/20 09:00 01/19/20 09:06 Clonidine HCl (Catapres) 0.1 mg TID PO 01/19/20 09:00 01/19/20 09:07 Clopidogrel Bisulfate (Plavix) 75 mg DAILYWBKFT PO 01/19/20 08:00 01/19/20 09:05 Gabapentin (Neurontin) 300 mg BID PO 01/19/20 09:00 01/19/20 09:07 Carvedilol (Coreg) 25 mg BIDWMEALS PO 01/19/20 00:30 01/19/20 09:07 Isosorbide Mononitrate (Imdur) 60 mg DAILY PO 01/19/20 09:00 01/19/20 09:05 Pantoprazole Sodium (Protonix) 40 mg BIDAC PO 01/19/20 00:30 01/19/20 09:08 Acetaminophen/ Hydrocodone Bitart (Lortab 10/325) 1 tab PRN Q4HRS PRN PO PAIN 01/18/20 23:15 01/19/20 10:46 Oxycodone HCl (OxyCONTIN) 10 mg BID PO 01/19/20 00:30 01/19/20 09:08 Temazepam (Restoril) 30 mg QHS PO 01/19/20 00:30 01/19/20 00:41 Trazodone HCl (Desyrel) 50 mg QHS PO 01/19/20 00:30 01/19/20 00:41 Ropinirole HCl (Requip) 0.5 mg HS PO 01/19/20 00:30 01/19/20 00:41 Piperacillin Sod/ Tazobactam Sod 2.25 gm/Sodium Chloride 50 ml @ 100 mls/hr Q6HRS IV 01/19/20 09:30 01/19/20 11:05 DC 01/19/20 10:43 MADISON GUTIERREZ MD Jan 19, 2020 13:53
[2020-01-19] MEDS ORDERED: DEXTROSE 50% 25 GM / 50ML DISP.SYRIN. IV PRN (14:00)
[2020-01-19] MEDS: MEROPENEM 1 GM in IV NORMAL SALINE 100ML 100 ML IV SCH (14:46)
[2020-01-19 14:55] VITALS: BP 138/74
--- NOTE | 2020-01-19 14:58 | PDOC2 ---
CONSULT Date of Consult Date of Consult DATE: 01/19/20 TIME: 14:51 Reason for Consult Reason for Consult: LEATHA Referring Physician Referring Physician: CECE Identification/Chief Complaint Chief Complaint FOOT WOUND Source Source: Chart review, Patient History of Present Illness Reason for Visit: THIS IS A 54 YR OLD WITH REDNESS AND SWELLING IN HIS LEFT FOOT. RECENTLY WAS D/[facility] AFTER TX FOR BILATERAL LE CELLULITIS AND HAD A 1ST TOE AMP ON THE LEFT ON 12-31-2019. CURRENTLY UNDERGOING ANTIBIOTICS TX AND BEING EVALUATED BY VASCULAR SURGERY. HAS ADVANCED CKD STAGE 4 WITH BASELINE CR OF ABOUT 2.8-3.0. HAS HAD LEATHA EARLIER THIS YEAR WITH CR OF 5.4 BUT IMPROVED WITH CR OF 2.8 TO 3.0 AT DISCHARGE. HAS HX OF NEEDING HD FOR LEATHA COUPLE YEARS AGO WHILE INPT AT [facility]. LABS ALSO SHOWED SOME ANEMIA AND LEUCOCYTOSIS Past Medical History Cardiovascular: CAD, CHF, HTN, Hyperlipidemia, Other Pulmonary: Other CENTRAL NERVOUS SYSTEM: Other GI: GERD Heme/Onc: Anemia NOS Psych: Depression Musculoskeletal: Other Renal/: Chronic renal insuff Endocrine: Diabetes Past Surgical History Past Surgical History: Tonsillectomy, Other (Left partial toe amputation right toe tip debridement) Family History Family History: Coronary Artery Disease Social History No ALCOHOL: none Drugs: Other Lives: with Family Current Problem List Problem List Problems Medical Problems: (1) Acute on chronic renal insufficiency Status: Acute (2) Cellulitis of left foot Status: Acute Current Medications Current Medications Current Medications Vancomycin HCl (Vanco Per Pharmacy) 1 each PRN DAILY PRN MC SEE COMMENTS Last administered on 01/18/20at 18:07; Start 01/18/20 at 14:45; Stop 01/19/20 at 11:05; Status DC Vancomycin HCl 2 gm/Sodium Chloride 500 ml @ 250 mls/hr 1X ONCE IV Last a dministered on 01/18/20at 15:07; Start 01/18/20 at 15:00; Stop 01/18/20 at 16:59; Status DC Acetaminophen (Tylenol) 1,000 mg 1X ONCE PO Last administered on 01/18/20at 15:28; Start 01/18/20 at 15:15; Stop 01/18/20 at 15:18; Status DC Amlodipine Besylate (Norvasc) 10 mg DAILY PO Last administered on 01/19/20at 09:06; Start 01/19/20 at 09:00 Aspirin (Aspirin Chewable) 81 mg DAILYWBKFT PO Last administered on 01/19/20at 08:00; Start 01/19/20 at 08:00 Atorvastatin Calcium (Lipitor) 40 mg QHS PO ; Start 01/19/20 at 21:00 Clonidine HCl (Catapres) 0.1 mg TID PO Last administered on 01/19/20at 14:37; Start 01/19/20 at 09:00 Clopidogrel Bisulfate (Plavix) 75 mg DAILYWBKFT PO Last administered on 01/19/20at 09:05; Start 01/19/20 at 08:00 Gabapentin (Neurontin) 300 mg BID PO Last administered on 01/19/20 09:07; Start 01/19/20 at 09:00 Acetaminophen/ Hydrocodone Bitart (Lortab 10/325) 1 tab Q4H PRN PO PAIN; Start 01/18/20 at 23:00; Stop 01/18/20 at 23:11; Status DC Oxycodone HCl (OxyCONTIN) 10 mg BID PO ; Start 01/19/20 at 09:00; Stop 01/18/20 at 23:11; Status DC Temazepam (Restoril) 30 mg QHS PO ; Start 01/19/20 at 21:00; Stop 01/18/20 at 23:11; Status DC Trazodone HCl (Desyrel) 50 mg QHS PO ; Start 01/19/20 at 21:00; Stop 01/18/20 at 23:11; Status DC Carvedilol (Coreg) 25 mg BIDWMEALS PO Last administered on 01/19/20at 09:07; Start 01/19/20 at 00:30 Hydralazine HCl (Apresoline) 100 mg TID PO Last administered on 01/19/20 14:39; Start 01/19/20 at 00:30 Isosorbide Mononitrate (Imdur) 60 mg DAILY PO Last administered on 01/19/20at 09:05; Start 01/19/20 at 09:00 Pantoprazole Sodium (Protonix) 40 mg BIDAC PO Last administered on 01/19/20 09:08; Start 01/19/20 at 00:30 Non-Formulary Medication (Ropinirole Hcl ) 0.5 mg HS PO ; Start 01/19/20 at 21:00; Stop 01/18/20 at 23:11; Status DC Acetaminophen/ Hydrocodone Bitart (Lortab 10/325) 1 tab PRN Q4HRS PRN PO PAIN Last administered on 01/19/20at 10:46; Start 01/18/20 at 23:15 Oxycodone HCl (OxyCONTIN) 10 mg BID PO Last administered on 01/19/20at 09:08; Start 01/19/20 at 00:30 Temazepam (Restoril) 30 mg QHS PO Last administered on 01/19/20at 00:41; Start 01/19/20 at 00:30 Trazodone HCl (Desyrel) 50 mg QHS PO Last administered on 01/19/20at 00:41; Start 01/19/20 at 00:30 Ropinirole HCl (Requip) 0.5 mg HS PO Last administered on 01/19/20at 00:41; Start 01/19/20 at 00:30 Piperacillin Sod/ Tazobactam Sod 3.375 gm/Sodium Chloride 50 ml @ 100 mls/hr Q 6HRS IV ; Start 01/19/20 at 12:00; Status UNV Piperacillin Sod/ Tazobactam Sod 2.25 gm/Sodium Chloride 50 ml @ 100 mls/hr Q6HRS IV Last administered on 01/19/20at 10:43; Start 01/19/20 at 09:30; Stop 01/19/20 at 11:05; Status DC Meropenem 1 gm/ Sodium Chloride 100 ml @ 200 mls/hr DAILY IV Last administered on 01/19/20at 14:46; Start 01/19/20 at 12:00 Lactobacillus Rhamnosus (Culturelle) 1 cap BID PO ; Start 01/19/20 at 21:00 Insulin Human Lispro (HumaLOG) 0-7 UNITS TIDWMEALS SQ ; Start 01/19/20 at 17:00 Dextrose (Dextrose 50%-Water Syringe) 12.5 gm PRN Q15MIN PRN IV SEE COMMENTS; Start 01/19/20 at 14:00 Active Scripts Active Hydrocodone-Apap 10-325 (Hydrocodone Bit/Acetaminophen) 1 Tab Tablet 1 Tab PO Q4H PRN 30 Days Oxycontin (Oxycodone HCl) 10 Mg Tab.er.12h 1 Tab PO BID MDD 2 Tablet(s) 30 Days Amlodipine Besylate 10 Mg Tablet 10 Mg PO DAILY 30 Days Clonidine Hcl 0.1 Mg Tablet 1 Tab PO TID 30 Days Isosorbide Mononitrate Er (Isosorbide Mononitrate) 60 Mg Tab.er.24h 1 Tab PO DAILY Hydralazine Hcl 100 Mg Tablet 1 Tab PO TID Atorvastatin Calcium 40 Mg Tablet 40 Mg PO QHS 30 Days Plavix (Clopidogrel Bisulfate) 75 Mg Tablet 75 Mg PO DAILYWBKFT Reported Trazodone Hcl 50 Mg Tablet 1 Tab PO QHS Gabapentin (Gabapentin) 300 Mg Capsule 300 Mg PO BID Children's Aspirin (Aspirin) 81 Mg Tab.chew 1 Tab PO DAILY 30 Days Coreg (Carvedilol) 25 Mg Tablet 25 Mg PO BIDWMEALS Ropinirole Hcl 0.5 Mg Tablet 0.5 Mg PO HS Protonix (Pantoprazole Sodium) 20 Mg Tablet.dr 2 Tab PO BID Temazepam 30 Mg Capsule 1 Cap PO QHS Allergies Allergies: Coded Allergies: No Known Drug Allergies (Unverified , 01/18/20) ROS General: YES: Fatigue, Appetite PSYCHOLOGICAL ROS: YES: Anxiety Eyes: Yes Decreased vision ALLERGY AND IMMUNOLOGY: YES: Seasonal Allergies Respiratory: YES: Cough Gastrointestinal: Yes Constipation Genitourinary: YES Other (NOCTURIA) Musculoskeletal: Yes Joint Pain, Yes Muscular Weakness Neurological: Yes Weakness Skin: Yes Dry Skin, Yes Skin Lesion Changes Physical Exam General: Alert, Oriented X3, Cooperative, No acute distress HEENT: Atraumatic, PERRLA Lungs: Clear to auscultation Heart: Regular rate Abdomen: Normal bowel sounds, Soft Extremities: No clubbing, Other (LEFT FOOT ERYTHEMA) MUSCULOSKELETAL: No joint tenderness Vitals VITALS Vital Signs Date Time Temp Pulse Resp B/P (MAP) Pulse Ox O2 Delivery O2 Flow Rate FiO2 01/19/20 14:39 93 124/79 01/19/20 13:15 Room Air 01/19/20 11:00 97.8 18 97 97.8 Labs Labs Laboratory Tests Test 01/18/20 14:41 01/19/20 05:10 01/19/20 07:26 01/19/20 11:37 White Blood Count 12.2 x10^3/uL (4.0-11.0) Red Blood Count 3.45 x10^6/uL (4.30-5.70) Hemoglobin 9.9 g/dL (13.0-17.5) Hematocrit 29.1 % (39.0-53.0) Mean Corpuscular Volume 84 fL (79-100) Mean Corpuscular Hemoglobin 29 pg (25-35) Mean Corpuscular Hemoglobin Concent 34 g/dL (31-37) Red Cell Distribution Width 14.9 % (11.5-14.5) Platelet Count 191 x10^3/uL (140-400) Neutrophils (%) (Auto) 81 % (31-73) Lymphocytes (%) (Auto) 7 % (24-48) Monocytes (%) (Auto) 12 % (0-9) Eosinophils (%) (Auto) 0 % (0-3) Basophils (%) (Auto) 0 % (0-3) Neutrophils # (Auto) 9.9 x10^3/uL (1.8-7.7) Lymphocytes # (Auto) 0.8 x10^3/uL (1.0-4.8) Monocytes # (Auto) 1.4 x10^3/uL (0.0-1.1) Eosinophils # (Auto) 0.1 x10^3/uL (0.0-0.7) Basophils # (Auto) 0.0 x10^3/uL (0.0-0.2) Sodium Level 132 mmol/L (136-145) Potassium Level 3.8 mmol/L (3.5-5.1) Chloride Level 98 mmol/L (98-107) Carbon Dioxide Level 23 mmol/L (21-32) Anion Gap 11 (6-14) Blood Urea Nitrogen 57 mg/dL (8-26) Creatinine 4.4 mg/dL (0.7-1.3) 4.2 mg/dL (0.7-1.3) Estimated GFR (Cockcroft-Gault) 14.1 14.9 BUN/Creatinine Ratio 13 (6-20) Glucose Level 129 mg/dL (70-99) Lactic Acid Level 0.8 mmol/L (0.4-2.0) Calcium Level 8.6 mg/dL (8.5-10.1) Total Bilirubin 0.3 mg/dL (0.2-1.0) Aspartate Amino Transf (AST/SGOT) 16 U/L (15-37) Alanine Aminotransferase (ALT/SGPT) 19 U/L (16-63) Alkaline Phosphatase 89 U/L (46-116) Total Protein 7.5 g/dL (6.4-8.2) Albumin 2.7 g/dL (3.4-5.0) Albumin/Globulin Ratio 0.6 (1.0-1.7) Glucose (Fingerstick) 153 mg/dL (70-99) 169 mg/dL (70-99) Laboratory Tests Test 01/19/20 05:10 01/19/20 07:26 01/19/20 11:37 Creatinine 4.2 mg/dL (0.7-1.3) Estimated GFR (Cockcroft-Gault) 14.9 Glucose (Fingerstick) 153 mg/dL (70-99) 169 mg/dL (70-99) Assessment/Plan Assessment/Plan IMP LEATHA-CR OF 4.4-HX OF LEATHA NEEDING HD COUPLE YEARS AGO WHILE AT [facility] CKD STATGE 4-CR AT BASELINE NOW 2.8-3.2 ON AVG L BIG TOE ULCER AND OSTEOMYELITIS-S/P AMP-EARLIER THIS MONTH HX RIGHT FOOT CELLULITIS ANEMIA OF CKD DM II HTN PLAN WOUND CARE ANTIBIOTICS HYDRATION AVOID NEPHROTOXINS ENC PT TO KEEP OP APPT AT D/C WILL FOLLOW PAT GARRISON MD Jan 19, 2020 14:58
[2020-01-19] MEDS: IV NORMAL SALINE 1000ML BAG 1,000 ML IV SCH (15:00)
[2020-01-19] MEDS: INSULIN LISPRO 300 UNITS/3 ML VIAL. SQ SCH (17:00)
--- NOTE | 2020-01-19 17:35 | NUR ---
SW following. Spoke with RN and reviewed chart. No SW needs per RN. Pt from home with room air and oral medications. Pt to have surgery tomorrow. SW available as needed.
[2020-01-19 19:00] VITALS: BP 110/62
[2020-01-19] MEDS ORDERED: NON FORMULARY ITEM (Ropinirole Hcl 0.5 MG) PO SCH (21:00)
[2020-01-19] MEDS ORDERED: TEMAZEPAM 15 MG CAPSULE PO SCH (21:00)
[2020-01-19] MEDS ORDERED: traZODone 50 MG TABLET. PO SCH (21:00)
[2020-01-19] MEDS: LACTOBACILLUS RHAMNOSUS GG 1 CAPSULE. PO SCH (21:43)
[2020-01-19] MEDS: ATORVASTATIN CALCIUM 40 MG TABLET. PO SCH (21:43)
[2020-01-19 23:00] VITALS: BP 124/70
[2020-01-20 03:00] VITALS: BP 130/72
[2020-01-20] MEDS: HYDROcodone/APAP 10/325 1 TAB TABLET PO PRN ×3 (03:44→19:23)
[2020-01-20] MEDS: IV NORMAL SALINE 1000ML BAG 1,000 ML IV SCH ×2 (03:44→18:13)
[2020-01-20 05:16] LABS: BASO % 0 % (0-3); EOS # 0.2 x10^3/uL (0.0-0.7); EOS % 2 % (0-3); HEMATOCRIT 28.1 % (39.0-53.0); HEMOGLOBIN 9.4 g/dL (13.0-17.5); LYMPH # 0.9 x10^3/uL (1.0-4.8); LYMPH % 8 % (24-48); MEAN CORPUSCULAR HEMOGLOBIN 28 pg (25-35); MEAN CORPUSCULAR HGB CONC 34 g/dL (31-37); MEAN CORPUSCULAR VOLUME 84 fL (79-100); MONO # 1.2 x10^3/uL (0.0-1.1); MONO % 12 % (0-9); NEUT # 8.4 x10^3/uL (1.8-7.7); NEUT % 79 % (31-73); PLATELET COUNT 200 x10^3/uL (140-400); RED BLOOD COUNT 3.34 x10^6/uL (4.30-5.70); RED CELL DISTRIBUTION WIDTH 14.9 % (11.5-14.5); WHITE BLOOD COUNT 10.7 x10^3/uL (4.0-11.0)
[2020-01-20 05:36] LABS: CALCIUM 7.7 mg/dL (8.5-10.1); CREATININE 3.9 mg/dL (0.7-1.3); GFR 16.3; MAGNESIUM 2.1 mg/dL (1.8-2.4); PHOSPHORUS 2.6 mg/dL (2.6-4.7)
[2020-01-20 06:15] LABS: CREATININE 3.9 mg/dL (0.7-1.3); GFR 16.3
[2020-01-20 07:00] VITALS: BP 145/76
[2020-01-20] MEDS: INSULIN LISPRO 300 UNITS/3 ML VIAL. SQ SCH ×3 (07:43→17:00)
[2020-01-20] MEDS: PANTOPRAZOLE 40 MG TABLET.DR. PO SCH ×2 (08:32→18:13)
[2020-01-20] MEDS: cloNIDine HCL 0.1 MG TABLET PO SCH ×3 (08:32→21:21)
[2020-01-20] MEDS: ASPIRIN CHEWABLE 81 MG TABLET. PO SCH (08:32)
[2020-01-20] MEDS: amLODIPine BESYLATE 10 MG TABLET PO SCH (08:33)
[2020-01-20] MEDS: GABAPENTIN 300 MG CAPSULE. PO SCH ×2 (08:33→21:20)
[2020-01-20] MEDS: LACTOBACILLUS RHAMNOSUS GG 1 CAPSULE. PO SCH ×2 (08:33→21:20)
[2020-01-20] MEDS: oxyCODONE ER 10 MG TAB.ER.12H PO SCH ×2 (08:34→21:21)
[2020-01-20] MEDS: ISOSORBIDE MONONITRATE ER 30 MG TAB.ER.24H PO SCH (08:34)
[2020-01-20] MEDS: CLOPIDOGREL BISULFATE 75 MG TABLET PO SCH (08:34)
[2020-01-20] MEDS: CARVEDILOL 12.5 MG TABLET. PO SCH ×2 (08:35→18:13)
[2020-01-20] MEDS: MEROPENEM 1 GM in IV NORMAL SALINE 100ML 100 ML IV SCH (08:35)
--- NOTE | 2020-01-20 09:15 | PDOC ---
Infectious Disease Note Subjective Subjective c/o foot pain, more redness, swelling ROS ROS no n/v/d/fever Vital Sign Vital Signs Vital Signs Date Time Temp Pulse Resp B/P (MAP) Pulse Ox O2 Delivery O2 Flow Rate FiO2 01/20/20 09:02 Room Air 01/20/20 08:35 99 145/76 01/20/20 03:44 98 01/20/20 03:00 98.6 18 98.6 Physical Exam PHYSICAL EXAM GENERAL: Alert and oriented gentleman, not in distress. VITAL SIGNS: Stable. Afebrile. HEENT: NAD. NECK: Supple. No JVP, no lymphadenopathy. LUNGS: Clear. HEART: S1, S2 regular. ABDOMEN: Benign. EXTREMITIES: Left amputation site very well approximated incision except at the lateral and its open wound with the purulent drainage. Patient does have erythema of the left foot and warmth to the foot. Right big toe has superficial ulcer SKIN: Rest of skin examination unremarkable. NEUROLOGIC: The patient is alert, awake and appropriate. No focal neurologic deficit. Labs Lab Laboratory Tests Test 01/19/20 11:37 01/19/20 17:02 01/20/20 04:35 01/20/20 07:33 Glucose (Fingerstick) 169 mg/dL (70-99) 131 mg/dL (70-99) 103 mg/dL (70-99) White Blood Count 10.7 x10^3/uL (4.0-11.0) Red Blood Count 3.34 x10^6/uL (4.30-5.70) Hemoglobin 9.4 g/dL (13.0-17.5) Hematocrit 28.1 % (39.0-53.0) Mean Corpuscular Volume 84 fL (79-100) Mean Corpuscular Hemoglobin 28 pg (25-35) Mean Corpuscular Hemoglobin Concent 34 g/dL (31-37) Red Cell Distribution Width 14.9 % (11.5-14.5) Platelet Count 200 x10^3/uL (140-400) Neutrophils (%) (Auto) 79 % (31-73) Lymphocytes (%) (Auto) 8 % (24-48) Monocytes (%) (Auto) 12 % (0-9) Eosinophils (%) (Auto) 2 % (0-3) Basophils (%) (Auto) 0 % (0-3) Neutrophils # (Auto) 8.4 x10^3/uL (1.8-7.7) Lymphocytes # (Auto) 0.9 x10^3/uL (1.0-4.8) Monocytes # (Auto) 1.2 x10^3/uL (0.0-1.1) Eosinophils # (Auto) 0.2 x10^3/uL (0.0-0.7) Basophils # (Auto) 0.0 x10^3/uL (0.0-0.2) Sodium Level 133 mmol/L (136-145) Potassium Level 4.0 mmol/L (3.5-5.1) Chloride Level 99 mmol/L (98-107) Carbon Dioxide Level 22 mmol/L (21-32) Anion Gap 12 (6-14) Blood Urea Nitrogen 58 mg/dL (8-26) Creatinine 3.9 mg/dL (0.7-1.3) Estimated GFR (Cockcroft-Gault) 16.3 Glucose Level 125 mg/dL (70-99) Calcium Level 7.7 mg/dL (8.5-10.1) Phosphorus Level 2.6 mg/dL (2.6-4.7) Magnesium Level 2.1 mg/dL (1.8-2.4) Micro GRAM STAIN Final Final NO ORGANISMS SEEN. SQUAMOUS EPI CELL:NONE SEEN PMN (WBCs):RARE Unless otherwise specified, Testing Performed by: [address] [id number] For Inquires, the Physician may contact the Microbiology department at [phone] ANAEROBIC-AEROBIC CULTURE Preliminary Preliminary FEW GRAM NEGATIVE RODS on 01/02/20 at 1016 FINAL ID= [SERRATIA MARCESCENS] RARE GRAM NEGATIVE RODS on 01/03/20 at 1049 FINAL ID= [PSEUDOMONAS AERUGINOSA] SERRATIA MARCESCENS PSEUDOMONAS AERUGINOSA ANTIMICROBIAL SUSCEPTIBILITY Preliminary Comment NEG IZA 56 SERRATIA MARCESCENS ANTIBIOTIC RESULT INTERPRETATION AMPICILLIN/SULBACTAM >16/8 R AMIKACIN <=16 S AMPICILLIN >16 R AMOXICILLIN/K CLAVULANATE >16/8 R AZTREONAM <=4 S CEFTRIAXONE 32 R CEFTAZIDIME >16 R CEFOTAXIME >32 R CEFOXITIN 16 R* CONTINUED ON NEXT PAGE RUN DATE: 01/03/20 [facility] *LIVE* PAGE 2 RUN TIME: 1054 Specimen Inquiry SPEC: [id number] PATIENT: BERTRAND COLMENARES [id number] (Continued) ----- ------- Procedure Result ANTIMICROBIAL SUSCEPTIBILITY Preliminary (continued) CIPROFLOXACIN <=0.25 S CEFEPIME <=2 S CEFUROXIME >16 R CEFTAZIDIME/AVIBACTAM <=4 S ERTAPENEM <=0.5 S GENTAMICIN <=2 S LEVOFLOXACIN <=0.5 S MEROPENEM <=1 S PIPERACILLIN/TAZOBACTAM <=8 S TRIMETHOPRIM/SULFAMETHOXAZOLE <=0.5/9.5 S TETRACYCLINE >8 R TOBRAMYCIN <=2 S Unless otherwise specified, Testing Performed by: [facility] [address] [place] [address] For Inquires, the Physician may contact the Microbiology department at [phone] Objective: Assessment: Objective Assessment Left big toe chronic ulcer with bone scan positive for osteomyelitis. s/p amputation, closed on 12/[address] Cheema. Wound dehiscence with purulent drainage and cellulitis of the foot, Past culture + serratia and PSAE Right big toe ulcer, superficial. Bone scan is positive for osteomyelitis, but there is no clinical evidence of chronic or deep wound on to the right big toe. s/p debridement of necrotic skin & subcutaneous tissue on 12/30. Peripheral arterial disease. Coronary artery disease. Diabetes. Hypertension. Noncompliance. Diarrhea Plan Plan of Care meropenem. and zyvox Vascular surgery, I and D tentative tomorrow DULCE MARIA SRIVASTAVA MD Jan 20, 2020 09:15
[2020-01-20] MEDS: LINEZOLID 600 MG TABLET PO SCH ×2 (10:10→21:21)
[2020-01-20 11:00] VITALS: BP 129/84
--- NOTE | 2020-01-20 11:50 | PDOC ---
Renal-Progress Notes Subjective Notes Notes NO NEW COMPLAINTS History of Present Illness Hx of present illness STABLE Vitals Vitals Vital Signs Date Time Temp Pulse Resp B/P (MAP) Pulse Ox O2 Delivery O2 Flow Rate FiO2 01/20/20 10:05 Room Air 01/20/20 08:35 99 145/76 01/20/20 07:00 98.8 18 96 98.8 Weight Weight [ ] I.O. Intake and Output Intake and Output 01/20/20 07:00 Intake Total 1500 ml Balance 1500 ml Intake Oral 1500 ml # Voids 3 Labs Labs Laboratory Tests Test 01/19/20 17:02 01/20/20 04:35 01/20/20 07:33 01/20/20 11:36 Glucose (Fingerstick) 131 mg/dL (70-99) 103 mg/dL (70-99) 165 mg/dL (70-99) White Blood Count 10.7 x10^3/uL (4.0-11.0) Red Blood Count 3.34 x10^6/uL (4.30-5.70) Hemoglobin 9.4 g/dL (13.0-17.5) Hematocrit 28.1 % (39.0-53.0) Mean Corpuscular Volume 84 fL (79-100) Mean Corpuscular Hemoglobin 28 pg (25-35) Mean Corpuscular Hemoglobin Concent 34 g/dL (31-37) Red Cell Distribution Width 14.9 % (11.5-14.5) Platelet Count 200 x10^3/uL (140-400) Neutrophils (%) (Auto) 79 % (31-73) Lymphocytes (%) (Auto) 8 % (24-48) Monocytes (%) (Auto) 12 % (0-9) Eosinophils (%) (Auto) 2 % (0-3) Basophils (%) (Auto) 0 % (0-3) Neutrophils # (Auto) 8.4 x10^3/uL (1.8-7.7) Lymphocytes # (Auto) 0.9 x10^3/uL (1.0-4.8) Monocytes # (Auto) 1.2 x10^3/uL (0.0-1.1) Eosinophils # (Auto) 0.2 x10^3/uL (0.0-0.7) Basophils # (Auto) 0.0 x10^3/uL (0.0-0.2) Sodium Level 133 mmol/L (136-145) Potassium Level 4.0 mmol/L (3.5-5.1) Chloride Level 99 mmol/L (98-107) Carbon Dioxide Level 22 mmol/L (21-32) Anion Gap 12 (6-14) Blood Urea Nitrogen 58 mg/dL (8-26) Creatinine 3.9 mg/dL (0.7-1.3) Estimated GFR (Cockcroft-Gault) 16.3 Glucose Level 125 mg/dL (70-99) Calcium Level 7.7 mg/dL (8.5-10.1) Phosphorus Level 2.6 mg/dL (2.6-4.7) Magnesium Level 2.1 mg/dL (1.8-2.4) Micro Micro Microbiology 01/18/20 Blood Culture - Preliminary, Resulted NO GROWTH AFTER 1 DAY Review of Systems Constitutional: yes: alert, oriented Ears/Nose/Throat: Yes: no symptom reported Eyes: Yes: no symptom reported Pulmonary: Yes no symptom reported Cardiovascular: Yes no symptom reported Gastrointestional: Yes: constipation Genitourinary: Yes: no symptom reported Musculoskeletal: Yes: joint pain Skin: Yes no symptom reported Psychiatric/Neurological: Yes: no symptom reported Endocrine: Yes: no symptom reported Physical Exam General Appearance: no apparent distress Skin: warm Respiratory: bilateral CTA Heart: S1S2 Abdomen: soft, bowel sounds present Genitourinary: bladder flat Extremities: pulses present Neurology: alert Musculoskeletal: Other Assessment Assessment IMP LEATHA-CR OF 4.4-HX OF LEATHA NEEDING HD COUPLE YEARS AGO WHILE AT [facility]-CR DOWN TO 3.9 CKD STATGE 4-CR AT BASELINE NOW 2.8-3.2 ON AVG L BIG TOE ULCER AND OSTEOMYELITIS-S/P AMP-EARLIER THIS MONTH HX RIGHT FOOT CELLULITIS ANEMIA OF CKD DM II HTN PLAN WOUND CARE ANTIBIOTICS HYDRATION AVOID NEPHROTOXINS ENC PT TO KEEP OP APPT AT D/C WILL FOLLOW PAT GARRISON MD Jan 20, 2020 11:50
[2020-01-20] MEDS: MORPHINE SULFATE 2 MG/ML VIAL. IV PRN ×3 (14:00→21:27)
--- NOTE | 2020-01-20 14:02 | PDOC ---
PROGRESS NOTES Date of Service DATE: 01/20/20 TIME: 13:56 Subjective Subjective Patient seen and examined in room. Patient lying in bed with left foot elevated on pillows. Patient complains of increasing pain and throbbing in his left foot. Objective Objective Vital Signs Date Time Temp Pulse Resp B/P (MAP) Pulse Ox O2 Delivery O2 Flow Rate FiO2 01/20/20 12:54 Room Air 01/20/20 11:00 98.3 74 18 129/84 (99) 98 98.3 Intake and Output 01/20/20 07:00 Intake Total 1500 ml Balance 1500 ml Intake Oral 1500 ml # Voids 3 Physical Exam Physical Exam Awake and alert Right foot inspected, first toe with nail avulsion, toe tip with dry full- thickness skin ulcer. No swelling or erythema. Left foot inspected patient has purulent drainage from incision. Copious amounts of drainage noted overnight, dressing changed x2. Increasing swelling and erythema in forefoot. BLE: 2+ palpable dorsalis pedis pulses. Assessment Assessment Problems Medical Problems: (1) Acute on chronic renal insufficiency Status: Acute (2) Cellulitis of left foot Status: Acute Plan Plan of Care 54 year old male with history of right toe tip debridement and left first toe partial amputation with left foot cellulitis and purulent drainage from amputation site and non-healing right first toe. Dr. Lizarraga was able to open a portion of the incision on the left first toe and drain this. Unfortunately patient continues to drain copious amounts of purulent drainage and increasing erythema and swelling. Would recommend continued antibiotics and local wound care. We will keep the OR time scheduled for tomorrow and reevaluate for surgical debridement with possible left first toe metatarsal amputation and right first toe debridement Can continue Plavix and Aspirin. Discussed plan with the patient and he expresses understanding and is willing to proceed if necessary. Comment Review of Relevant I have reviewed the following items gavin (where applicable) has been applied. Labs Laboratory Tests Test 01/18/20 14:41 01/19/20 05:10 01/19/20 07:26 01/19/20 11:37 White Blood Count 12.2 x10^3/uL (4.0-11.0) Red Blood Count 3.45 x10^6/uL (4.30-5.70) Hemoglobin 9.9 g/dL (13.0-17.5) Hematocrit 29.1 % (39.0-53.0) Mean Corpuscular Volume 84 fL (79-100) Mean Corpuscular Hemoglobin 29 pg (25-35) Mean Corpuscular Hemoglobin Concent 34 g/dL (31-37) Red Cell Distribution Width 14.9 % (11.5-14.5) Platelet Count 191 x10^3/uL (140-400) Neutrophils (%) (Auto) 81 % (31-73) Lymphocytes (%) (Auto) 7 % (24-48) Monocytes (%) (Auto) 12 % (0-9) Eosinophils (%) (Auto) 0 % (0-3) Basophils (%) (Auto) 0 % (0-3) Neutrophils # (Auto) 9.9 x10^3/uL (1.8-7.7) Lymphocytes # (Auto) 0.8 x10^3/uL (1.0-4.8) Monocytes # (Auto) 1.4 x10^3/uL (0.0-1.1) Eosinophils # (Auto) 0.1 x10^3/uL (0.0-0.7) Basophils # (Auto) 0.0 x10^3/uL (0.0-0.2) Sodium Level 132 mmol/L (136-145) Potassium Level 3.8 mmol/L (3.5-5.1) Chloride Level 98 mmol/L (98-107) Carbon Dioxide Level 23 mmol/L (21-32) Anion Gap 11 (6-14) Blood Urea Nitrogen 57 mg/dL (8-26) Creatinine 4.4 mg/dL (0.7-1.3) 4.2 mg/dL (0.7-1.3) Estimated GFR (Cockcroft-Gault) 14.1 14.9 BUN/Creatinine Ratio 13 (6-20) Glucose Level 129 mg/dL (70-99) Lactic Acid Level 0.8 mmol/L (0.4-2.0) Calcium Level 8.6 mg/dL (8.5-10.1) Total Bilirubin 0.3 mg/dL (0.2-1.0) Aspartate Amino Transf (AST/SGOT) 16 U/L (15-37) Alanine Aminotransferase (ALT/SGPT) 19 U/L (16-63) Alkaline Phosphatase 89 U/L (46-116) Total Protein 7.5 g/dL (6.4-8.2) Albumin 2.7 g/dL (3.4-5.0) Albumin/Globulin Ratio 0.6 (1.0-1.7) Glucose (Fingerstick) 153 mg/dL (70-99) 169 mg/dL (70-99) Test 01/19/20 17:02 01/20/20 04:35 01/20/20 07:33 01/20/20 11:36 Glucose (Fingerstick) 131 mg/dL (70-99) 103 mg/dL (70-99) 165 mg/dL (70-99) White Blood Count 10.7 x10^3/uL (4.0-11.0) Red Blood Count 3.34 x10^6/uL (4.30-5.70) Hemoglobin 9.4 g/dL (13.0-17.5) Hematocrit 28.1 % (39.0-53.0) Mean Corpuscular Volume 84 fL (79-100) Mean Corpuscular Hemoglobin 28 pg (25-35) Mean Corpuscular Hemoglobin Concent 34 g/dL (31-37) Red Cell Distribution Width 14.9 % (11.5-14.5) Platelet Count 200 x10^3/uL (140-400) Neutrophils (%) (Auto) 79 % (31-73) Lymphocytes (%) (Auto) 8 % (24-48) Monocytes (%) (Auto) 12 % (0-9) Eosinophils (%) (Auto) 2 % (0-3) Basophils (%) (Auto) 0 % (0-3) Neutrophils # (Auto) 8.4 x10^3/uL (1.8-7.7) Lymphocytes # (Auto) 0.9 x10^3/uL (1.0-4.8) Monocytes # (Auto) 1.2 x10^3/uL (0.0-1.1) Eosinophils # (Auto) 0.2 x10^3/uL (0.0-0.7) Basophils # (Auto) 0.0 x10^3/uL (0.0-0.2) Sodium Level 133 mmol/L (136-145) Potassium Level 4.0 mmol/L (3.5-5.1) Chloride Level 99 mmol/L (98-107) Carbon Dioxide Level 22 mmol/L (21-32) Anion Gap 12 (6-14) Blood Urea Nitrogen 58 mg/dL (8-26) Creatinine 3.9 mg/dL (0.7-1.3) Estimated GFR (Cockcroft-Gault) 16.3 Glucose Level 125 mg/dL (70-99) Calcium Level 7.7 mg/dL (8.5-10.1) Phosphorus Level 2.6 mg/dL (2.6-4.7) Magnesium Level 2.1 mg/dL (1.8-2.4) Laboratory Tests Test 01/19/20 17:02 01/20/20 04:35 01/20/20 07:33 01/20/20 11:36 Glucose (Fingerstick) 131 mg/dL (70-99) 103 mg/dL (70-99) 165 mg/dL (70-99) White Blood Count 10.7 x10^3/uL (4.0-11.0) Red Blood Count 3.34 x10^6/uL (4.30-5.70) Hemoglobin 9.4 g/dL (13.0-17.5) Hematocrit 28.1 % (39.0-53.0) Mean Corpuscular Volume 84 fL (79-100) Mean Corpuscular Hemoglobin 28 pg (25-35) Mean Corpuscular Hemoglobin Concent 34 g/dL (31-37) Red Cell Distribution Width 14.9 % (11.5-14.5) Platelet Count 200 x10^3/uL (140-400) Neutrophils (%) (Auto) 79 % (31-73) Lymphocytes (%) (Auto) 8 % (24-48) Monocytes (%) (Auto) 12 % (0-9) Eosinophils (%) (Auto) 2 % (0-3) Basophils (%) (Auto) 0 % (0-3) Neutrophils # (Auto) 8.4 x10^3/uL (1.8-7.7) Lymphocytes # (Auto) 0.9 x10^3/uL (1.0-4.8) Monocytes # (Auto) 1.2 x10^3/uL (0.0-1.1) Eosinophils # (Auto) 0.2 x10^3/uL (0.0-0.7) Basophils # (Auto) 0.0 x10^3/uL (0.0-0.2) Sodium Level 133 mmol/L (136-145) Potassium Level 4.0 mmol/L (3.5-5.1) Chloride Level 99 mmol/L (98-107) Carbon Dioxide Level 22 mmol/L (21-32) Anion Gap 12 (6-14) Blood Urea Nitrogen 58 mg/dL (8-26) Creatinine 3.9 mg/dL (0.7-1.3) Estimated GFR (Cockcroft-Gault) 16.3 Glucose Level 125 mg/dL (70-99) Calcium Level 7.7 mg/dL (8.5-10.1) Phosphorus Level 2.6 mg/dL (2.6-4.7) Magnesium Level 2.1 mg/dL (1.8-2.4) Microbiology 01/18/20 Blood Culture - Preliminary, Resulted NO GROWTH AFTER 1 DAY Medications Current Medications Vancomycin HCl (Vanco Per Pharmacy) 1 each PRN DAILY PRN MC SEE COMMENTS Last administered on 01/18/20at 18:07; Start 01/18/20 at 14:45; Stop 01/19/20 at 11:05; Status DC Vancomycin HCl 2 gm/Sodium Chloride 500 ml @ 250 mls/hr 1X ONCE IV Last administered on 01/18/20at 15:07; Start 01/18/20 at 15:00; Stop 01/18/20 at 16 :59; Status DC Acetaminophen (Tylenol) 1,000 mg 1X ONCE PO Last administered on 01/18/20at 15:28; Start 01/18/20 at 15:15; Stop 01/18/20 at 15:18; Status DC Amlodipine Besylate (Norvasc) 10 mg DAILY PO Last administered on 01/20/20at 08:33; Start 01/19/20 at 09:00 Aspirin (Aspirin Chewable) 81 mg DAILYWBKFT PO Last administered on 01/20/20at 08:32; Start 01/19/20 at 08:00 Atorvastatin Calcium (Lipitor) 40 mg QHS PO Last administered on 01/19/20at 21:43; Start 01/19/20 at 21:00 Clonidine HCl (Catapres) 0.1 mg TID PO Last administered on 01/20/20 08:32; Start 01/19/20 at 09:00 Clopidogrel Bisulfate (Plavix) 75 mg DAILYWBKFT PO Last administered on 01/20/20at 08:34; Start 01/19/20 at 08:00 Gabapentin (Neurontin) 300 mg BID PO Last administered on 01/20/20at 08:33; Start 01/19/20 at 09:00 Acetaminophen/ Hydrocodone Bitart (Lortab 10/325) 1 tab Q4H PRN PO PAIN; Start 01/18/20 at 23:00; Stop 01/18/20 at 23:11; Status DC Oxycodone HCl (OxyCONTIN) 10 mg BID PO ; Start 01/19/20 at 09:00; Stop 01/18/20 at 23:11; Status DC Temazepam (Restoril) 30 mg QHS PO ; Start 01/19/20 at 21:00; Stop 01/18/20 at 23:11; Status DC Trazodone HCl (Desyrel) 50 mg QHS PO ; Start 01/19/20 at 21:00; Stop 01/18/20 at 23:11; Status DC Carvedilol (Coreg) 25 mg BIDWMEALS PO Last administered on 01/20/20at 08:35; Start 01/19/20 at 00:30 Hydralazine HCl (Apresoline) 100 mg TID PO Last administered on 01/20/20at 0 8:33; Start 01/19/20 at 00:30 Isosorbide Mononitrate (Imdur) 60 mg DAILY PO Last administered on 01/20/20at 08:34; Start 01/19/20 at 09:00 Pantoprazole Sodium (Protonix) 40 mg BIDAC PO Last administered on 01/20/20 08:32; Start 01/19/20 at 00:30 Non-Formulary Medication (Ropinirole Hcl ) 0.5 mg HS PO ; Start 01/19/20 at 21:00; Stop 01/18/20 at 23:11; Status DC Acetaminophen/ Hydrocodone Bitart (Lortab 10/325) 1 tab PRN Q4HRS PRN PO PAIN Last administered on 01/20/20at 09:02; Start 01/18/20 at 23:15 Oxycodone HCl (OxyCONTIN) 10 mg BID PO Last administered on 01/20/20 08:34; Start 01/19/20 at 00:30 Temazepam (Restoril) 30 mg QHS PO Last administered on 01/19/20at 21:43; Start 01/19/20 at 00:30 Trazodone HCl (Desyrel) 50 mg QHS PO Last administered on 01/19/20 21:42; Start 01/19/20 at 00:30 Ropinirole HCl (Requip) 0.5 mg HS PO Last administered on 01/19/20 21:43; Start 01/19/20 at 00:30 Piperacillin Sod/ Tazobactam Sod 3.375 gm/Sodium Chloride 50 ml @ 100 mls/hr Q6HRS IV ; Start 01/19/20 at 12:00; Status UNV Piperacillin Sod/ Tazobactam Sod 2.25 gm/Sodium Chloride 50 ml @ 100 mls/hr Q6HRS IV Last administered on 01/19/20at 10:43; Start 01/19/20 at 09:30; Stop 01/19/20 at 11:05; Status DC Meropenem 1 gm/ Sodium Chloride 100 ml @ 200 mls/hr DAILY IV Last administered on 01/20/20 08:35; Start 01/19/20 at 12:00 Lactobacillus Rhamnosus (Culturelle) 1 cap BID PO Last administered on 01/20/20at 08:33; Start 01/19/20 at 21:00 Insulin Human Lispro (HumaLOG) 0-7 UNITS TIDWMEALS SQ Last administered on 01/20/20at 12:58; Start 01/19/20 at 17:00 Dextrose (Dextrose 50%-Water Syringe) 12.5 gm PRN Q15MIN PRN IV SEE COMMENTS; Start 01/19/20 at 14:00 Sodium Chloride 1,000 ml @ 75 mls/hr [id number] IV Last administered on 01/20/20at 03:44; Start 01/19/20 at 15:00 Linezolid (Zyvox) 600 mg BID PO Last administered on 01/20/20at 10:10; Start 01/20/20 at 10:00 Bacitracin 37279 unit/Sodium Chloride 500 ml @ 500 mls/hr 1X ONCE IRR ; Start 01/21/20 at 06:00; Stop 01/21/20 at 06:59 Morphine Sulfate (Morphine Sulfate) 2 mg PRN Q2HR PRN IV PAIN; Start 01/20/20 at 12:15 Active Scripts Active Hydrocodone-Apap 10-325 (Hydrocodone Bit/Acetaminophen) 1 Tab Tablet 1 Tab PO Q4H PRN 30 Days Oxycontin (Oxycodone HCl) 10 Mg Tab.er.12h 1 Tab PO BID MDD 2 Tablet(s) 30 Days Amlodipine Besylate 10 Mg Tablet 10 Mg PO DAILY 30 Days Clonidine Hcl 0.1 Mg Tablet 1 Tab PO TID 30 Days Isosorbide Mononitrate Er (Isosorbide Mononitrate) 60 Mg Tab.er.24h 1 Tab PO DAILY Hydralazine Hcl 100 Mg Tablet 1 Tab PO TID Atorvastatin Calcium 40 Mg Tablet 40 Mg PO QHS 30 Days Plavix (Clopidogrel Bisulfate) 75 Mg Tablet 75 Mg PO DAILYWBKFT Reported Trazodone Hcl 50 Mg Tablet 1 Tab PO QHS Gabapentin (Gabapentin) 300 Mg Capsule 300 Mg PO BID Children's Aspirin (Aspirin) 81 Mg Tab.chew 1 Tab PO DAILY 30 Days Coreg (Carvedilol) 25 Mg Tablet 25 Mg PO BIDWMEALS Ropinirole Hcl 0.5 Mg Tablet 0.5 Mg PO HS Protonix (Pantoprazole Sodium) 20 Mg Tablet.dr 2 Tab PO BID Temazepam 30 Mg Capsule 1 Cap PO QHS Vitals/I & O Vital Sign - Last 24 Hours 01/19/20 01/19/20 01/19/20 01/19/20 14:37 14:39 14:55 16:53 Temp 97.8 97.8 Pulse 93 93 99 94 Resp 18 B/P (MAP) 124/79 124/79 138/74 (95) 122/76 Pulse Ox 98 O2 Delivery Room Air 01/19/20 01/19/20 01/19/20 01/19/20 17:11 18:10 19:00 20:00 Temp 98.2 98.2 Pulse 82 Resp 18 B/P (MAP) 110/62 (78) Pulse Ox 98 O2 Delivery Room Air Room Air Room Air Room Air 01/19/20 01/19/20 01/19/20 01/19/20 21:42 21:42 21:43 21:47 Pulse 82 82 B/P (MAP) 110/62 110/62 Pulse Ox 98 98 O2 Delivery Room Air Room Air 01/19/20 01/20/20 01/20/20 01/20/20 23:00 03:00 03:44 07:00 Temp 98.5 98.6 98.8 98.5 98.6 98.8 Pulse 96 98 99 Resp 18 18 18 B/P (MAP) 124/70 (88) 130/72 (91) 145/76 (99) Pulse Ox 98 98 98 96 O2 Delivery Room Air Room Air Room Air Room Air 01/20/20 01/20/20 01/20/20 01/20/20 08:00 08:32 08:33 08:33 Pulse 99 99 99 B/P (MAP) 145/76 145/76 145/76 O2 Delivery Room Air 01/20/20 01/20/20 01/20/20 01/20/20 08:34 08:34 08:35 09:02 Pulse 99 99 B/P (MAP) 145/76 145/76 O2 Delivery Room Air Room Air 01/20/20 01/20/20 01/20/20 10:05 11:00 12:54 Temp 98.3 98.3 Pulse 74 Resp 18 B/P (MAP) 129/84 (99) Pulse Ox 98 O2 Delivery Room Air Room Air Room Air Intake and Output 01/19/20 01/19/20 01/20/20 15:00 23:00 07:00 Intake Total 600 ml 500 ml 400 ml Balance 600 ml 500 ml 400 ml Justifications for Admission Other Justification SIL RAMOS APRN Jan 20, 2020 14:02
--- NOTE | 2020-01-20 14:40 | PDOC ---
[employer] PROGRESS NOTE Date of Service DOS: DATE: 01/20/20 TIME: 14:39 Chief Complaint Chief Complaint Left first digit acute on chronic chronic ulcer concerning for osteomyelitis Right first digit superficial ulcer History of osteomyelitis status post amputation Peripheral arterial disease. Coronary artery disease. Diabetes. Hypertension. Medical nonadherence Acute renal failure second to vasomotor nephropathy Continue with IV antibiotics switched from Vanco Zosyn to IV meropenem Added IV morphine PRN for pain control Pending wound and blood cultures Appreciate infectious disease recommendations Appreciate Ortho recommendations Possible OR on Friday for left first digit amputation Heparin for DVT prophylaxis ADA diet Full code Discussed with RN and SW Dispo pending OR tomorrow or this Friday Surrogate decision maker is self History of Present Illness History of Present Illness Patient is 54-year-old male with severe peripheral vascular disease and bilateral foot ulcers where the toes have become infected and has history of osteomyelitis. Patient recently had surgery with Dr. Cheema on December 30. Wound care nurse has been concerned with swelling has been getting worse with purulent drainage and erythema. Patient has been seen by orthopedics and vascular surgery. They are planning for possible amputation this Friday01/19/2020 No acute events since admission. Patient seen and examined bedside. Patient is tolerating diet. Pain is well controlled. Patient's chart, labs, images were reviewed and discussed with RN 01/20/2020 No acute events overnight. Patient seen and examined bedside. Patient is tolerating diet. IV morphine added for more pain control. Patient has chronic pain that is managed by outpatient opioid medications. Patient's chart, labs, images were reviewed and discussed with RN Vitals/I&O Vitals/I&O: Vital Signs Date Time Temp Pulse Resp B/P (MAP) Pulse Ox O2 Delivery O2 Flow Rate FiO2 01/20/20 14:00 Room Air 01/20/20 14:00 74 129/84 01/20/20 11:00 98.3 18 98 98.3 I & O 01/19/20 01/19/20 01/20/20 15:00 23:00 07:00 Intake Total 600 ml 500 ml 400 ml Balance 600 ml 500 ml 400 ml Physical Exam Physical Exam: GENERAL: Alert and oriented gentleman, not in distress. VITAL SIGNS: Stable. Afebrile. HEENT: NAD. NECK: Supple. No JVP, no lymphadenopathy. LUNGS: Clear. HEART: S1, S2 regular. ABDOMEN: Benign. EXTREMITIES: Left amputation site very well approximated incision except at the lateral and its open wound with the purulent drainage. Patient does have erythema of the left foot and warmth to the foot. Right big toe has superficial ulcer SKIN: Rest of skin examination unremarkable. NEUROLOGIC: The patient is alert, awake and appropriate. No focal neurologic deficit. General: Alert, Oriented X3, Cooperative, No acute distress Heart: Regular rate Lungs: Clear Abdomen: Normal bowel sounds, Soft Extremities: No clubbing, Other (LEFT FOOT ERYTHEMA) Labs Labs: Laboratory Tests Test 01/19/20 17:02 01/20/20 04:35 01/20/20 07:33 01/20/20 11:36 Glucose (Fingerstick) 131 mg/dL (70-99) 103 mg/dL (70-99) 165 mg/dL (70-99) White Blood Count 10.7 x10^3/uL (4.0-11.0) Red Blood Count 3.34 x10^6/uL (4.30-5.70) Hemoglobin 9.4 g/dL (13.0-17.5) Hematocrit 28.1 % (39.0-53.0) Mean Corpuscular Volume 84 fL (79-100) Mean Corpuscular Hemoglobin 28 pg (25-35) Mean Corpuscular Hemoglobin Concent 34 g/dL (31-37) Red Cell Distribution Width 14.9 % (11.5-14.5) Platelet Count 200 x10^3/uL (140-400) Neutrophils (%) (Auto) 79 % (31-73) Lymphocytes (%) (Auto) 8 % (24-48) Monocytes (%) (Auto) 12 % (0-9) Eosinophils (%) (Auto) 2 % (0-3) Basophils (%) (Auto) 0 % (0-3) Neutrophils # (Auto) 8.4 x10^3/uL (1.8-7.7) Lymphocytes # (Auto) 0.9 x10^3/uL (1.0-4.8) Monocytes # (Auto) 1.2 x10^3/uL (0.0-1.1) Eosinophils # (Auto) 0.2 x10^3/uL (0.0-0.7) Basophils # (Auto) 0.0 x10^3/uL (0.0-0.2) Sodium Level 133 mmol/L (136-145) Potassium Level 4.0 mmol/L (3.5-5.1) Chloride Level 99 mmol/L (98-107) Carbon Dioxide Level 22 mmol/L (21-32) Anion Gap 12 (6-14) Blood Urea Nitrogen 58 mg/dL (8-26) Creatinine 3.9 mg/dL (0.7-1.3) Estimated GFR (Cockcroft-Gault) 16.3 Glucose Level 125 mg/dL (70-99) Calcium Level 7.7 mg/dL (8.5-10.1) Phosphorus Level 2.6 mg/dL (2.6-4.7) Magnesium Level 2.1 mg/dL (1.8-2.4) Assessment and Plan Assessmemt and Plan Problems Medical Problems: (1) Acute on chronic renal insufficiency Status: Acute (2) Cellulitis of left foot Status: Acute Comment Review of Relevant I have reviewed the following items gavin (where applicable) has been applied. Medications: Current Medications Medications (Trade) Dose Ordered Sig/Jerri Route PRN Reason Start Time Stop Time Status Last Admin Dose Admin Atorvastatin Calcium (Lipitor) 40 mg QHS PO 01/19/20 21:00 01/19/20 21:43 Lactobacillus Rhamnosus (Culturelle) 1 cap BID PO 01/19/20 21:00 01/20/20 08:33 Insulin Human Lispro (HumaLOG) 0-7 UNITS TIDWMEALS SQ 01/19/20 17:00 01/20/20 12:58 Sodium Chloride 1,000 ml @ 75 mls/hr [id number] IV 01/19/20 15:00 01/20/20 03:44 Linezolid (Zyvox) 600 mg BID PO 01/20/20 10:00 01/20/20 10:10 Morphine Sulfate (Morphine Sulfate) 2 mg PRN Q2HR PRN IV PAIN 01/20/20 12:15 01/20/20 14:00 Justifications for Admission Other Justification MADISON GUTIERREZ MD Jan 20, 2020 14:40
[2020-01-20 15:00] VITALS: BP 117/67
--- NOTE | 2020-01-20 17:04 | NUR ---
SW following. Spoke with RN and reviewed chart. No SW needs per RN. SW available as needed.
[2020-01-20 19:00] VITALS: BP 134/81
[2020-01-20] MEDS: TEMAZEPAM 15 MG CAPSULE PO SCH (21:20)
[2020-01-20] MEDS: rOPINIRole 0.25 MG TABLET. PO SCH (21:20)
[2020-01-20] MEDS: traZODone 50 MG TABLET. PO SCH (21:20)
[2020-01-20] MEDS: ATORVASTATIN CALCIUM 40 MG TABLET. PO SCH (21:20)
[2020-01-20 23:03] VITALS: BP 138/80
[2020-01-21] MEDS: MORPHINE SULFATE 2 MG/ML VIAL. IV PRN ×5 (02:45→18:57)
[2020-01-21] MEDS: HYDROcodone/APAP 10/325 1 TAB TABLET PO PRN ×3 (02:48→18:57)
[2020-01-21 03:03] VITALS: BP 145/84
[2020-01-21 05:26] LABS: CALCIUM 8.2 mg/dL (8.5-10.1); CREATININE 3.9 mg/dL (0.7-1.3); GFR 16.3; POTASSIUM 4.5 mmol/L (3.5-5.1)
[2020-01-21] MEDS ORDERED: BACITRACIN 50,000 UNIT in IV NORMAL SALINE 500ML BAG 500 ML IRR ONE (06:00)
[2020-01-21] MEDS: IV NORMAL SALINE 1000ML BAG 1,000 ML IV SCH ×2 (06:44→17:19)
[2020-01-21 07:00] VITALS: BP 165/92
[2020-01-21] MEDS ORDERED: PROCHLORPERAZINE 10 MG/2 ML VIAL. IV PRN ×2 (07:00→14:45)
[2020-01-21] MEDS ORDERED: fentaNYL PF VIAL 100 MCG/2 ML VIAL IV PRN ×3 (07:00→14:45)
[2020-01-21] MEDS ORDERED: MORPHINE SULFATE 2 MG/ML VIAL. IV PRN ×2 (07:00→14:45)
[2020-01-21] MEDS ORDERED: IV RINGERS,LACTATED 1000ML 1,000 ML IV SCH ×2 (07:00→14:43)
[2020-01-21] MEDS ORDERED: HYDROmorphone 2 MG/ML VIAL IV PRN ×2 (07:00→14:45)
[2020-01-21] MEDS ORDERED: ONDANSETRON PF 4 MG/2 ML VIAL. IV PRN (07:00)
[2020-01-21] MEDS: PANTOPRAZOLE 40 MG TABLET.DR. PO SCH ×2 (07:30→15:57)
[2020-01-21] MEDS: INSULIN LISPRO 300 UNITS/3 ML VIAL. SQ SCH ×3 (07:56→17:00)
[2020-01-21] MEDS: CLOPIDOGREL BISULFATE 75 MG TABLET PO SCH (08:00)
[2020-01-21] MEDS: ASPIRIN CHEWABLE 81 MG TABLET. PO SCH (08:00)
[2020-01-21] MEDS: LACTOBACILLUS RHAMNOSUS GG 1 CAPSULE. PO SCH ×2 (08:41→21:41)
[2020-01-21] MEDS: amLODIPine BESYLATE 10 MG TABLET PO SCH (08:44)
[2020-01-21] MEDS: GABAPENTIN 300 MG CAPSULE. PO SCH ×2 (08:44→21:42)
[2020-01-21] MEDS: cloNIDine HCL 0.1 MG TABLET PO SCH ×3 (08:44→21:43)
[2020-01-21] MEDS: LINEZOLID 600 MG TABLET PO SCH ×2 (08:45→21:42)
[2020-01-21] MEDS: ISOSORBIDE MONONITRATE ER 30 MG TAB.ER.24H PO SCH (08:45)
[2020-01-21] MEDS: CARVEDILOL 12.5 MG TABLET. PO SCH ×2 (08:46→17:00)
[2020-01-21] MEDS: oxyCODONE ER 10 MG TAB.ER.12H PO SCH ×2 (08:46→21:44)
[2020-01-21] MEDS: MEROPENEM 1 GM in IV NORMAL SALINE 100ML 100 ML IV SCH (08:47)
[2020-01-21 11:00] VITALS: BP 154/87
--- NOTE | 2020-01-21 11:10 | PDOC ---
Infectious Disease Note Subjective Subjective c/o foot pain, more redness, swelling ROS ROS no n/v/d/ Vital Sign Vital Signs Vital Signs Date Time Temp Pulse Resp B/P (MAP) Pulse Ox O2 Delivery O2 Flow Rate FiO2 01/21/20 09:43 Room Air 01/21/20 08:46 101 165/92 01/21/20 07:00 97.7 18 97 97.7 Physical Exam PHYSICAL EXAM GENERAL: Alert and oriented gentleman, not in distress. VITAL SIGNS: Stable. Afebrile. HEENT: NAD. NECK: Supple. No JVP, no lymphadenopathy. LUNGS: Clear. HEART: S1, S2 regular. ABDOMEN: Benign. EXTREMITIES: Left amputation site very well approximated incision except at the lateral and its open wound with the purulent drainage. Patient does have erythema of the left foot and warmth to the foot. Right big toe has superficial ulcer SKIN: Rest of skin examination unremarkable. NEUROLOGIC: The patient is alert, awake and appropriate. No focal neurologic deficit. Labs Lab Laboratory Tests Test 01/20/20 11:36 01/20/20 15:41 01/20/20 16:49 01/20/20 20:28 Glucose (Fingerstick) 165 mg/dL (70-99) 130 mg/dL (70-99) 144 mg/dL (70-99) SARS-CoV-2 Antigen (Rapid) Negative (NEGATIVE) Test 01/21/20 04:15 01/21/20 07:40 Sodium Level 132 mmol/L (136-145) Potassium Level 4.5 mmol/L (3.5-5.1) Chloride Level 101 mmol/L (98-107) Carbon Dioxide Level 21 mmol/L (21-32) Anion Gap 10 (6-14) Blood Urea Nitrogen 59 mg/dL (8-26) Creatinine 3.9 mg/dL (0.7-1.3) Estimated GFR (Cockcroft-Gault) 16.3 Glucose Level 138 mg/dL (70-99) Calcium Level 8.2 mg/dL (8.5-10.1) Glucose (Fingerstick) 137 mg/dL (70-99) Micro GRAM STAIN Final Final NO ORGANISMS SEEN. SQUAMOUS EPI CELL:NONE SEEN PMN (WBCs):RARE Unless otherwise specified, Testing Performed by: [address] [address] For Inquires, the Physician may contact the Microbiology department at [phone] ANAEROBIC-AEROBIC CULTURE Preliminary Preliminary FEW GRAM NEGATIVE RODS on 01/02/20 at 1016 FINAL ID= [SERRATIA MARCESCENS] RARE GRAM NEGATIVE RODS on 01/03/20 at 1049 FINAL ID= [PSEUDOMONAS AERUGINOSA] SERRATIA MARCESCENS PSEUDOMONAS AERUGINOSA ANTIMICROBIAL SUSCEPTIBILITY Preliminary Comment NEG IZA 56 SERRATIA MARCESCENS ANTIBIOTIC RESULT INTERPRETATION AMPICILLIN/SULBACTAM >16/8 R AMIKACIN <=16 S AMPICILLIN >16 R AMOXICILLIN/K CLAVULANATE >16/8 R AZTREONAM <=4 S CEFTRIAXONE 32 R CEFTAZIDIME >16 R CEFOTAXIME >32 R CEFOXITIN 16 R* CONTINUED ON NEXT PAGE - RUN DATE: 01/03/20 [facility] *LIVE* PAGE 2 RUN TIME: 1054 Specimen Inquiry - SPEC: [id number] PATIENT: BERRTAND COLMENARES [id number] (Continued) Procedure Result ANTIMICROBIAL SUSCEPTIBILITY Preliminary (continued) CIPROFLOXACIN <=0.25 S CEFEPIME <=2 S CEFUROXIME >16 R CEFTAZIDIME/AVIBACTAM <=4 S ERTAPENEM <=0.5 S GENTAMICIN <=2 S LEVOFLOXACIN <=0.5 S MEROPENEM <=1 S PIPERACILLIN/TAZOBACTAM <=8 S TRIMETHOPRIM/SULFAMETHOXAZOLE <=0.5/9.5 S TETRACYCLINE >8 R TOBRAMYCIN <=2 S Unless otherwise specified, Testing Performed by: [address] [address] For Inquires, the Physician may contact the Microbiology department at [phone] ----- ------- culture now with G + cocci Objective Assessment Left big toe chronic ulcer with bone scan positive for osteomyelitis. s/p amputation, closed on 12/[address] Cheema. Wound dehiscence with purulent drainage and cellulitis of the foot, Past culture + serratia and PSAE Right big toe ulcer, superficial. Bone scan is positive for osteomyelitis, but there is no clinical evidence of chronic or deep wound on to the right big toe. s/p debridement of necrotic skin & subcutaneous tissue on 12/30. Peripheral arterial disease. Coronary artery disease. Diabetes. Hypertension. Noncompliance. Diarrhea Plan Plan of Care meropenem. and zyvox Vascular surgery, I and D today DULCE MARIA SRIVASTAVA MD Jan 21, 2020 11:10
--- NOTE | 2020-01-21 11:46 | PDOC ---
Renal-Progress Notes Subjective Notes Notes NO NEW COMPLAINTS History of Present Illness Hx of present illness STABLE Vitals Vitals Vital Signs Date Time Temp Pulse Resp B/P (MAP) Pulse Ox O2 Delivery O2 Flow Rate FiO2 01/21/20 09:43 Room Air 01/21/20 08:46 101 165/92 01/21/20 07:00 97.7 18 97 97.7 Weight Weight [ ] I.O. Intake and Output Intake and Output 01/21/20 07:00 Output Total 0 ml Balance 0 ml Output Urine Total 0 ml # Voids 2 Labs Labs Laboratory Tests Test 01/20/20 15:41 01/20/20 16:49 01/20/20 20:28 01/21/20 04:15 SARS-CoV-2 Antigen (Rapid) Negative (NEGATIVE) Glucose (Fingerstick) 130 mg/dL (70-99) 144 mg/dL (70-99) Sodium Level 132 mmol/L (136-145) Potassium Level 4.5 mmol/L (3.5-5.1) Chloride Level 101 mmol/L (98-107) Carbon Dioxide Level 21 mmol/L (21-32) Anion Gap 10 (6-14) Blood Urea Nitrogen 59 mg/dL (8-26) Creatinine 3.9 mg/dL (0.7-1.3) Estimated GFR (Cockcroft-Gault) 16.3 Glucose Level 138 mg/dL (70-99) Calcium Level 8.2 mg/dL (8.5-10.1) Test 01/21/20 07:40 01/21/20 11:15 Glucose (Fingerstick) 137 mg/dL (70-99) 120 mg/dL (70-99) Micro Micro Microbiology 01/19/20 Gram Stain - Final, Resulted 01/19/20 Aerobic and Anaerobic Culture - Preliminary, Resulted 01/18/20 Blood Culture - Preliminary, Resulted NO GROWTH AFTER 2 DAYS Review of Systems Constitutional: yes: alert, oriented Ears/Nose/Throat: Yes: no symptom reported Eyes: Yes: no symptom reported Pulmonary: Yes no symptom reported Cardiovascular: Yes no symptom reported Gastrointestional: Yes: constipation Genitourinary: Yes: no symptom reported Musculoskeletal: Yes: joint pain Skin: Yes no symptom reported Psychiatric/Neurological: Yes: no symptom reported Endocrine: Yes: no symptom reported Physical Exam General Appearance: no apparent distress Skin: warm Respiratory: bilateral CTA Heart: S1S2 Abdomen: soft, bowel sounds present Genitourinary: bladder flat Extremities: pulses present Neurology: alert Musculoskeletal: Other Assessment Assessment IMP LEATHA-CR OF 4.4-HX OF LEATHA NEEDING HD COUPLE YEARS AGO WHILE AT [facility]-CR DOWN TO 3.9 CKD STATGE 4-CR AT BASELINE NOW 2.8-3.2 ON AVG L BIG TOE ULCER AND OSTEOMYELITIS-S/P AMP-EARLIER THIS MONTH HX RIGHT FOOT CELLULITIS ANEMIA OF CKD DM II HTN PLAN WOUND CARE ANTIBIOTICS HYDRATION AVOID NEPHROTOXINS ENC PT TO KEEP OP APPT AT D/C WILL FOLLOW PAT GARRISON MD Jan 21, 2020 11:46
--- NOTE | 2020-01-21 12:32 | PDOC ---
[facility] PROGRESS NOTE Date of Service DOS: DATE: 01/21/20 TIME: 12:31 Chief Complaint Chief Complaint Left first digit acute on chronic chronic ulcer concerning for osteomyelitis Right first digit superficial ulcer History of osteomyelitis status post amputation Peripheral arterial disease. Coronary artery disease. Diabetes. Hypertension. Medical nonadherence Acute renal failure second to vasomotor nephropathy On-call to the OR today for amputation of left first toe Continue IV meropenem Continue IV morphine PRN for pain control Pending wound and blood cultures Appreciate infectious disease recommendations Appreciate Ortho recommendations Possible OR on Friday for left first digit amputation Heparin for DVT prophylaxis ADA diet Full code Discussed with RN and SW Dispo pending OR tomorrow or this Friday Surrogate decision maker is self History of Present Illness History of Present Illness Patient is 54-year-old male with severe peripheral vascular disease and bilateral foot ulcers where the toes have become infected and has history of osteomyelitis. Patient recently had surgery with Dr. Cheema on December 30. Wound care nurse has been concerned with swelling has been getting worse with purulent drainage and erythema. Patient has been seen by orthopedics and vascular surgery. They are planning for possible amputation this Friday01/19/2020 No acute events since admission. Patient seen and examined bedside. Patient is tolerating diet. Pain is well controlled. Patient's chart, labs, images were reviewed and discussed with RN 01/20/2020 No acute events overnight. Patient seen and examined bedside. Patient is tolerating diet. IV morphine added for more pain control. Patient has chronic pain that is managed by outpatient opioid medications. Patient's chart, labs, images were reviewed and discussed with RN 01/21/2020 No acute events overnight patient seen and examined bedside. On-call to the OR. Patient's chart, labs, images were reviewed and discussed with RN Vitals/I&O Vitals/I&O: Vital Signs Date Time Temp Pulse Resp B/P (MAP) Pulse Ox O2 Delivery O2 Flow Rate FiO2 01/21/20 11:48 Room Air 01/21/20 08:46 101 165/92 01/21/20 07:00 97.7 18 97 97.7 I & O 01/20/20 01/20/20 01/21/20 15:00 23:00 07:00 Output Total 0 ml Balance 0 ml Physical Exam Physical Exam: GENERAL: Alert and oriented gentleman, not in distress. VITAL SIGNS: Stable. Afebrile. HEENT: NAD. NECK: Supple. No JVP, no lymphadenopathy. LUNGS: Clear. HEART: S1, S2 regular. ABDOMEN: Benign. EXTREMITIES: Left amputation site very well approximated incision except at the lateral and its open wound with the purulent drainage. Patient does have erythema of the left foot and warmth to the foot. Right big toe has superficial ulcer SKIN: Rest of skin examination unremarkable. NEUROLOGIC: The patient is alert, awake and appropriate. No focal neurologic deficit. General: Alert, Oriented X3, Cooperative, No acute distress Heart: Regular rate Lungs: Clear Abdomen: Normal bowel sounds, Soft Extremities: No clubbing, Other (LEFT FOOT ERYTHEMA) Labs Labs: Laboratory Tests Test 01/20/20 15:41 01/20/20 16:49 01/20/20 20:28 01/21/20 04:15 SARS-CoV-2 Antigen (Rapid) Negative (NEGATIVE) Glucose (Fingerstick) 130 mg/dL (70-99) 144 mg/dL (70-99) Sodium Level 132 mmol/L (136-145) Potassium Level 4.5 mmol/L (3.5-5.1) Chloride Level 101 mmol/L (98-107) Carbon Dioxide Level 21 mmol/L (21-32) Anion Gap 10 (6-14) Blood Urea Nitrogen 59 mg/dL (8-26) Creatinine 3.9 mg/dL (0.7-1.3) Estimated GFR (Cockcroft-Gault) 16.3 Glucose Level 138 mg/dL (70-99) Calcium Level 8.2 mg/dL (8.5-10.1) Test 01/21/20 07:40 01/21/20 11:15 Glucose (Fingerstick) 137 mg/dL (70-99) 120 mg/dL (70-99) Assessment and Plan Assessmemt and Plan Problems Medical Problems: (1) Acute on chronic renal insufficiency Status: Acute (2) Cellulitis of left foot Status: Acute Comment Review of Relevant I have reviewed the following items gavin (where applicable) has been applied. Justifications for Admission Other Justification MADISON GUTIERREZ MD Jan 21, 2020 12:32
[2020-01-21] MEDS ORDERED: PROPOFOL 10 MG/ML (20ML) VIAL. IV ONE (15:03)
[2020-01-21] MEDS ORDERED: DEXAMETHASONE SOD PHOS 4 MG/ML VIAL ONE (15:03)
[2020-01-21] MEDS ORDERED: ONDANSETRON PF 4 MG/2 ML VIAL. ONE (15:03)
[2020-01-21] MEDS ORDERED: LIDOCAINE 2% PF 5 ML VIAL. ONE (15:03)
[2020-01-21] MEDS ORDERED: fentaNYL PF VIAL 100 MCG/2 ML VIAL ONE ×2 (15:13→16:46)
[2020-01-21] MEDS ORDERED: INSULIN LISPRO 100 UNIT/ML 3ML VIAL for OP,RR ONLY. SQ PRN (15:15)
[2020-01-21] MEDS ORDERED: ePHEDrine PF IN SALINE 50 MG/10 ML SYRINGE. IV ONE (15:58)
[2020-01-21] MEDS ORDERED: PHENYLEPHRINE in 0.9% NACL PF 1 MG/10 ML SYRINGE. IV ONE (15:58)
[2020-01-21] MEDS: MULTIVITAMIN with MINERAL TABLET. PO SCH (16:28)
[2020-01-21] MEDS: ASCORBIC ACID 500 MG TABLET PO SCH (16:28)
--- NOTE | 2020-01-21 16:35 | PDOC ---
BRIEF OPERATIVE NOTE Date: Jan 21, 2020 Pre-Op Diagnosis Osteomyelitis of the left first toe Post-Op Diagnosis Same Procedure Performed Left first metatarsal resection and left first toe residual resection Surgeon Ezra Courtney DO, FACS, RPVI Anesthesia Type: General Blood Loss 30 mL Specimens Obtained Left first metatarsal bone and remnant of the left first toe Complications none Operative Note Full note dictated EZRA COURTNEY DO Jan 21, 2020 16:35
[2020-01-21] MEDS ORDERED: NEOMY/BACITR/POLYMYXIN OINT PACKET. TP ONE (16:36)
[2020-01-21] MEDS: fentaNYL PF VIAL 100 MCG/2 ML VIAL IV PRN ×2 (16:49→17:20)
--- NOTE | 2020-01-21 17:14 | NUR ---
SW following. Spoke with RN and reviewed chart. Pt to have surgery. No anticipated SW needs at discharge.
--- NOTE | 2020-01-21 17:44 | OP ---
DATE OF SURGERY: 01/21/2020 VASCULAR SURGERY OPERATIVE NOTE ATTENDING SURGEON: Ezra Courtney DO PREOPERATIVE DIAGNOSIS: Osteomyelitis of the left first toe. POSTOPERATIVE DIAGNOSIS: Osteomyelitis of the left first toe. PROCEDURE: Left first toe amputation including the metatarsal bone with wound debridement and washout. ANESTHESIA: General. SPECIMENS: Left first metatarsal bone. ESTIMATED BLOOD LOSS: 30 mL. COMPLICATIONS: None. PREOPERATIVE INDICATIONS: The patient is a 54-year-old male who developed a distal first toe infection from a previous partial toe amputation. The patient was consented for further resection of the first toe including the metatarsal head. The patient understood all risks, benefits, alternatives and was agreeable to proceed. OPERATIVE PROCEDURE: The patient was brought to the operating suite and placed in supine position. After establishing appropriate anesthesia, the left foot was prepped and draped in sterile fashion. Next, a timeout procedure was performed. It was confirmed that the correct operative site was marked and draped the patient did receive appropriate perioperative antibiotics. Following this, a ray amputation incision was made, carried through skin and subcutaneous tissue and our dissection was carried down to the level of the metatarsal bone. The patient had a small abscess that was decompressed and completely excised. Next, circumferential dissection of the metatarsal bone was performed. Following this, a bone saw was used to divide the metatarsal bone in its mid shaft. Next, the sesamoid bones were sharply excised as well and all tendinous material was sharply excised. All nonviable tissue again was debrided to healthy bleeding tissue. The patient had excellent bleeding from the wound. Following this, hemostasis was obtained using Bovie electrocautery. Next, the wound was washed out with 2 liters of antibiotic-impregnated solution. Following this, after a correct lap, sponge, needle and instrument count, the skin was closed using interrupted 3-0 nylon suture. Sterile dressing was placed including a compressive wrap. The patient tolerated the procedure well and was transferred to the postanesthesia care unit in stable condition. EZRA COURTNEY DO DR: STANTON/jose JOB#: [id number] / [id number]
[2020-01-21 19:00] VITALS: BP 126/74
[2020-01-21] MEDS: ATORVASTATIN CALCIUM 40 MG TABLET. PO SCH (21:41)
[2020-01-21] MEDS: traZODone 50 MG TABLET. PO SCH (21:41)
[2020-01-21] MEDS: rOPINIRole 0.25 MG TABLET. PO SCH (21:42)
[2020-01-21] MEDS: TEMAZEPAM 15 MG CAPSULE PO SCH (21:43)
[2020-01-21 23:00] VITALS: BP 124/80
[2020-01-22] MEDS: MORPHINE SULFATE 2 MG/ML VIAL. IV PRN ×8 (00:07→23:15)
[2020-01-22] MEDS: HYDROcodone/APAP 10/325 1 TAB TABLET PO PRN ×4 (00:17→23:16)
[2020-01-22] MEDS: INSULIN LISPRO 300 UNITS/3 ML VIAL. SQ SCH ×5 (00:22→21:00)
[2020-01-22 03:00] VITALS: BP 122/86
--- NOTE | 2020-01-22 07:01 | PDOC ---
Infectious Disease Note Subjective Subjective Feeling better ROS ROS No nausea vomiting diarrhea chest pain Vital Sign Vital Signs Vital Signs Date Time Temp Pulse Resp B/P (MAP) Pulse Ox O2 Delivery O2 Flow Rate FiO2 01/22/20 05:50 18 98 Room Air 01/22/20 03:00 97.5 85 122/86 (98) 97.5 01/21/20 16:59 10 Physical Exam PHYSICAL EXAM GENERAL: Alert and oriented gentleman, not in distress. VITAL SIGNS: Stable. Afebrile. HEENT: NAD. NECK: Supple. No JVP, no lymphadenopathy. LUNGS: Clear. HEART: S1, S2 regular. ABDOMEN: Benign. EXTREMITIES: Postsurgical dressing not open NEUROLOGIC: The patient is alert, awake and appropriate. No focal neurologic deficit. Labs Lab Laboratory Tests Test 01/21/20 07:40 01/21/20 11:15 01/21/20 15:24 01/21/20 21:35 Glucose (Fingerstick) 137 mg/dL (70-99) 120 mg/dL (70-99) 115 mg/dL (70-99) 257 mg/dL (70-99) Micro GRAM STAIN Final Final GRAM POSITIVE COCCI:MANY SQUAMOUS EPI CELL:NONE SEEN PMN (WBCs):FEW Unless otherwise specified, Testing Performed by: [address] [address] For Inquires, the Physician may contact the Microbiology department at [phone] ANAEROBIC-AEROBIC CULTURE Preliminary Preliminary MODERATE GRAM POSITIVE COCCI on 01/21/20 at 1109 FINAL ID= [STAPHYLOCOCCUS AUREUS] STAPHYLOCOCCUS AUREUS ANTIMICROBIAL SUSCEPTIBILITY Preliminary Comment POS IZA TYPE 38 STAPHYLOCOCCUS AUREUS ANTIBIOTIC RESULT INTERPRETATION AZITHROMYCIN <=2 S CLINDAMYCIN 0.5 S CEFOXITIN SCREEN <=4 NEG CIPROFLOXACIN <=1 S CEFTAROLINE <=0.5 S DAPTOMYCIN <=0.5 S ERYTHROMYCIN <=0.25 S GENTAMICIN <=4 S LINEZOLID 4 S LEVOFLOXACIN <=1 S OXACILLIN <=0.25 S PENICILLIN <=0.03 Carlos Eduardo CONTINUED ON NEXT PAGE RUN DATE: 01/22/20 [facility] *LIVE* PAGE 2 RUN TIME: 927 Specimen Inquiry SPEC: [id number] PATIENT: BERTRAND COLMENARES [id number] (Continued) Procedure Result ANTIMICROBIAL SUSCEPTIBILITY Preliminary (continued) RIFAMPIN <=1 S TRIMETHOPRIM/SULFAMETHOXAZOLE <=0.5/9.5 S TETRACYCLINE <=4 S VANCOMYCIN 1 S Unless otherwise specified, Testing Performed by: [address] [address] For Inquires, the Physician may contact the Microbiology department at [phone] Objective Assessment Left big toe chronic ulcer with bone scan positive for osteomyelitis. s/p amputation, closed on 12/[address] Cheema. Wound dehiscence with purulent drainage and cellulitis of the foot, Past culture + serratia and PSAE Right big toe ulcer, superficial. Bone scan is positive for osteomyelitis, but there is no clinical evidence of chronic or deep wound on to the right big toe. s/p debridement of necrotic skin & subcutaneous tissue on 12/30. Peripheral arterial disease. Coronary artery disease. Diabetes. Hypertension. Noncompliance. Diarrhea Plan Plan of Care meropenem. and DULCE MARIA Henao MD Jan 22, 2020 07:01
[2020-01-22 07:36] LABS: CALCIUM 8.1 mg/dL (8.5-10.1); CREATININE 3.3 mg/dL (0.7-1.3); GFR 19.7
[2020-01-22 07:48] LABS: POTASSIUM 5.4 mmol/L (3.5-5.1)
[2020-01-22 07:59] VITALS: BP 130/97
[2020-01-22] MEDS: MULTIVITAMIN with MINERAL TABLET. PO SCH (08:37)
[2020-01-22] MEDS: GABAPENTIN 300 MG CAPSULE. PO SCH ×2 (08:37→21:03)
[2020-01-22] MEDS: IV NORMAL SALINE 1000ML BAG 1,000 ML IV SCH ×2 (08:37→23:15)
[2020-01-22] MEDS: MEROPENEM 1 GM in IV NORMAL SALINE 100ML 100 ML IV SCH (08:37)
[2020-01-22] MEDS: LINEZOLID 600 MG TABLET PO SCH (08:38)
[2020-01-22] MEDS: PANTOPRAZOLE 40 MG TABLET.DR. PO SCH ×2 (08:38→17:48)
[2020-01-22] MEDS: ISOSORBIDE MONONITRATE ER 30 MG TAB.ER.24H PO SCH (08:38)
[2020-01-22] MEDS: CARVEDILOL 12.5 MG TABLET. PO SCH ×2 (08:39→17:48)
[2020-01-22] MEDS: cloNIDine HCL 0.1 MG TABLET PO SCH ×3 (08:39→21:05)
[2020-01-22] MEDS: ASPIRIN CHEWABLE 81 MG TABLET. PO SCH (08:40)
[2020-01-22] MEDS: ASCORBIC ACID 500 MG TABLET PO SCH (08:41)
[2020-01-22] MEDS: LACTOBACILLUS RHAMNOSUS GG 1 CAPSULE. PO SCH ×2 (08:41→21:03)
[2020-01-22] MEDS: amLODIPine BESYLATE 10 MG TABLET PO SCH (08:41)
[2020-01-22] MEDS: CLOPIDOGREL BISULFATE 75 MG TABLET PO SCH (08:41)
[2020-01-22] MEDS: oxyCODONE ER 10 MG TAB.ER.12H PO SCH ×2 (08:41→21:06)
[2020-01-22 11:59] VITALS: BP 137/80
--- NOTE | 2020-01-22 13:12 | PDOC ---
Renal-Progress Notes Subjective Notes Notes NO NEW COMPLAINTS History of Present Illness Hx of present illness NO CHANGES Vitals Vitals Vital Signs Date Time Temp Pulse Resp B/P (MAP) Pulse Ox O2 Delivery O2 Flow Rate FiO2 01/22/20 12:15 Room Air 01/22/20 08:41 87 130/97 01/22/20 07:59 97.4 18 99 97.4 01/21/20 16:59 10 Weight Weight [ ] I.O. Intake and Output Intake and Output 01/22/20 06:59 Intake Total 1020 ml Output Total 25 ml Balance 995 ml Intake Oral 120 ml IV Total 900 ml Estimated Blood Loss 25 ml # Voids 2 Labs Labs Laboratory Tests Test 01/21/20 15:24 01/21/20 21:35 01/22/20 06:15 01/22/20 08:04 Glucose (Fingerstick) 115 mg/dL (70-99) 257 mg/dL (70-99) 191 mg/dL (70-99) Sodium Level 130 mmol/L (136-145) Potassium Level 5.4 mmol/L (3.5-5.1) Chloride Level 100 mmol/L (98-107) Carbon Dioxide Level 21 mmol/L (21-32) Anion Gap 9 (6-14) Blood Urea Nitrogen 63 mg/dL (8-26) Creatinine 3.3 mg/dL (0.7-1.3) Estimated GFR (Cockcroft-Gault) 19.7 Glucose Level 215 mg/dL (70-99) Calcium Level 8.1 mg/dL (8.5-10.1) Test 01/22/20 12:01 Glucose (Fingerstick) 230 mg/dL (70-99) Micro Micro Microbiology 01/19/20 Gram Stain - Final, Resulted 01/19/20 Aerobic and Anaerobic Culture - Preliminary, Resulted 01/19/20 Antimicrobic Susceptibility - Preliminary, Resulted 01/18/20 Blood Culture - Preliminary, Resulted NO GROWTH AFTER 3 DAYS Review of Systems Constitutional: yes: alert, oriented Ears/Nose/Throat: Yes: no symptom reported Eyes: Yes: no symptom reported Pulmonary: Yes no symptom reported Cardiovascular: Yes no symptom reported Gastrointestional: Yes: constipation Genitourinary: Yes: no symptom reported Musculoskeletal: Yes: joint pain Skin: Yes no symptom reported Psychiatric/Neurological: Yes: no symptom reported Endocrine: Yes: no symptom reported Physical Exam General Appearance: no apparent distress Skin: warm Respiratory: bilateral CTA Heart: S1S2 Abdomen: soft, bowel sounds present Genitourinary: bladder flat Extremities: pulses present Neurology: alert Musculoskeletal: Other Assessment Assessment IMP MILD HYPERKALEMIA MILD HYPONATREMIA LEATHA-CR OF 4.4-HX OF LEATHA NEEDING HD COUPLE YEARS AGO WHILE AT [facility]-CR DOWN TO 3.3 CKD STATGE 4-CR AT [facility]EL[facility] NOW 2.8-3.2 ON AVG L BIG TOE ULCER AND OSTEOMYELITIS-S/P AMP-EARLIER THIS MONTH HX RIGHT FOOT CELLULITIS ANEMIA OF CKD DM II HTN PLAN WOUND CARE ANTIBIOTICS HYDRATION AVOID NEPHROTOXINS ENC PT TO KEEP OP APPT AT D/C LABS IN AM WILL FOLLOW PAT GARRISON MD Jan 22, 2020 13:11
--- NOTE | 2020-01-22 14:55 | PDOC ---
[employer] [facility] PROGRESS NOTE Date of Service DOS: DATE: 01/22/20 TIME: 14:51 Chief Complaint Chief Complaint Left first toe ulcer status post amputation 01/21/2020 History of osteomyelitis status post amputation Peripheral arterial disease. Coronary artery disease. Diabetes. Hypertension. Medical nonadherence CKD, baseline Hyponatremia Hyperkalemia Continue IV meropenem DC Zyvox Continue IV morphine PRN for pain control Pending wound and blood cultures Appreciate infectious disease recommendations Appreciate Ortho recommendations Heparin for DVT prophylaxis ADA diet Full code Discussed with RN and SW Dispo pending further Ortho evaluation and blood culture sensitivities Surrogate decision maker is self History of Present Illness History of Present Illness Patient is 54-year-old male with severe peripheral vascular disease and bilateral foot ulcers where the toes have become infected and has history of osteomyelitis. Patient recently had surgery with Dr. Cheema on December 30. Wound care nurse has been concerned with swelling has been getting worse with purulent drainage and erythema. Patient has been seen by orthopedics and vascular surgery. They are planning for possible amputation this Friday01/19/2020 No acute events since admission. Patient seen and examined bedside. Patient is tolerating diet. Pain is well controlled. Patient's chart, labs, images were reviewed and discussed with RN 01/20/2020 No acute events overnight. Patient seen and examined bedside. Patient is tolerating diet. IV morphine added for more pain control. Patient has chronic pain that is managed by outpatient opioid medications. Patient's chart, labs, images were reviewed and discussed with RN 01/21/2020 No acute events overnight patient seen and examined bedside. On-call to the OR. Patient's chart, labs, images were reviewed and discussed with RN 01/22/2020 No acute events overnight. Patient's pain is well controlled. Patient is tolerating diet. Patient's chart, labs, images were reviewed and discussed with RN Vitals/I&O Vitals/I&O: Vital Signs Date Time Temp Pulse Resp B/P (MAP) Pulse Ox O2 Delivery O2 Flow Rate FiO2 01/22/20 13:36 Room Air 01/22/20 13:36 85 137/80 01/22/20 11:59 97.5 18 98 97.5 01/21/20 16:59 10 I & O 01/21/20 01/21/20 01/22/20 15:00 23:00 07:00 Intake Total 1020 ml Output Total 25 ml Balance 995 ml Physical Exam Physical Exam: GENERAL: Alert and oriented gentleman, not in distress. VITAL SIGNS: Stable. Afebrile. HEENT: NAD. NECK: Supple. No JVP, no lymphadenopathy. LUNGS: Clear. HEART: S1, S2 regular. ABDOMEN: Benign. EXTREMITIES: Postsurgical dressing not open NEUROLOGIC: The patient is alert, awake and appropriate. No focal neurologic deficit. General: Alert, Oriented X3, Cooperative, No acute distress Heart: Regular rate Lungs: Clear Abdomen: Normal bowel sounds, Soft Extremities: No clubbing, Other (LEFT FOOT ERYTHEMA) Labs Labs: Laboratory Tests Test 01/21/20 15:24 01/21/20 21:35 01/22/20 06:15 01/22/20 08:04 Glucose (Fingerstick) 115 mg/dL (70-99) 257 mg/dL (70-99) 191 mg/dL (70-99) Sodium Level 130 mmol/L (136-145) Potassium Level 5.4 mmol/L (3.5-5.1) Chloride Level 100 mmol/L (98-107) Carbon Dioxide Level 21 mmol/L (21-32) Anion Gap 9 (6-14) Blood Urea Nitrogen 63 mg/dL (8-26) Creatinine 3.3 mg/dL (0.7-1.3) Estimated GFR (Cockcroft-Gault) 19.7 Glucose Level 215 mg/dL (70-99) Calcium Level 8.1 mg/dL (8.5-10.1) Test 01/22/20 12:01 Glucose (Fingerstick) 230 mg/dL (70-99) Assessment and Plan Assessmemt and Plan Problems Medical Problems: (1) Acute on chronic renal insufficiency Status: Acute (2) Cellulitis of left foot Status: Acute Comment Review of Relevant I have reviewed the following items gavin (where applicable) has been applied. Medications: Current Medications Medications (Trade) Dose Ordered Sig/Jerri Route PRN Reason Start Time Stop Time Status Last Admin Dose Admin Multivitamins (Thera M Plus) 1 tab DAILY PO 01/21/20 17:00 01/22/20 08:37 Ascorbic Acid (Vitamin C) 500 mg DAILY PO 01/21/20 17:00 01/22/20 08:41 Insulin Human Lispro (HumaLOG) 0-7 UNITS QIDACHS SQ 01/21/20 23:45 01/22/20 12:20 Justifications for Admission Other Justification MADISON GUTIERREZ MD Jan 22, 2020 14:55
--- NOTE | 2020-01-22 14:59 | PDOC ---
Provider Note Provider Note S: pt complain of pain left foot O: vss, afebrile dressing removed and wound inspected. Looks fine A: stable status post left great toe amp with met head resection P: f/u with Dr Lizarraga in 2 weeks. Discharge per primary service. Justifications for Admission Other Justification MARTHA ROACH II, MD Jan 22, 2020 14:59
[2020-01-22 15:59] VITALS: BP 134/80
[2020-01-22 19:00] VITALS: BP 125/76
[2020-01-22] MEDS: traZODone 50 MG TABLET. PO SCH (21:03)
[2020-01-22] MEDS: rOPINIRole 0.25 MG TABLET. PO SCH (21:03)
[2020-01-22] MEDS: ATORVASTATIN CALCIUM 40 MG TABLET. PO SCH (21:03)
[2020-01-22] MEDS: TEMAZEPAM 15 MG CAPSULE PO SCH (21:03)
[2020-01-22 23:00] VITALS: BP 138/89
[2020-01-23 03:00] VITALS: BP 140/80
[2020-01-23] MEDS: HYDROcodone/APAP 10/325 1 TAB TABLET PO PRN ×4 (03:20→20:06)
[2020-01-23] MEDS: MORPHINE SULFATE 2 MG/ML VIAL. IV PRN ×6 (03:20→15:11)
[2020-01-23] MEDS: INSULIN LISPRO 300 UNITS/3 ML VIAL. SQ SCH ×4 (07:30→21:00)
[2020-01-23 07:59] VITALS: BP 128/78
[2020-01-23 08:49] LABS: BASO % 0 % (0-3); EOS # 0.1 x10^3/uL (0.0-0.7); EOS % 1 % (0-3); HEMATOCRIT 26.5 % (39.0-53.0); HEMOGLOBIN 8.6 g/dL (13.0-17.5); LYMPH # 0.9 x10^3/uL (1.0-4.8); LYMPH % 8 % (24-48); MEAN CORPUSCULAR HEMOGLOBIN 28 pg (25-35); MEAN CORPUSCULAR HGB CONC 32 g/dL (31-37); MEAN CORPUSCULAR VOLUME 86 fL (79-100); MONO # 0.8 x10^3/uL (0.0-1.1); MONO % 8 % (0-9); NEUT # 9.4 x10^3/uL (1.8-7.7); NEUT % 84 % (31-73); PLATELET COUNT 244 x10^3/uL (140-400); RED CELL DISTRIBUTION WIDTH 15.2 % (11.5-14.5); WHITE BLOOD COUNT 11.2 x10^3/uL (4.0-11.0)
[2020-01-23] MEDS: MEROPENEM 1 GM in IV NORMAL SALINE 100ML 100 ML IV SCH (09:01)
[2020-01-23] MEDS: ASCORBIC ACID 500 MG TABLET PO SCH (09:01)
[2020-01-23] MEDS: cloNIDine HCL 0.1 MG TABLET PO SCH ×3 (09:01→22:24)
[2020-01-23] MEDS: GABAPENTIN 300 MG CAPSULE. PO SCH ×2 (09:01→22:25)
[2020-01-23] MEDS: ISOSORBIDE MONONITRATE ER 30 MG TAB.ER.24H PO SCH (09:01)
[2020-01-23] MEDS: LACTOBACILLUS RHAMNOSUS GG 1 CAPSULE. PO SCH ×2 (09:02→22:25)
[2020-01-23] MEDS: amLODIPine BESYLATE 10 MG TABLET PO SCH (09:02)
[2020-01-23] MEDS: oxyCODONE ER 10 MG TAB.ER.12H PO SCH ×2 (09:02→22:24)
[2020-01-23] MEDS: ASPIRIN CHEWABLE 81 MG TABLET. PO SCH (09:02)
[2020-01-23] MEDS: MULTIVITAMIN with MINERAL TABLET. PO SCH (09:02)
[2020-01-23] MEDS: CARVEDILOL 12.5 MG TABLET. PO SCH ×2 (09:03→17:03)
[2020-01-23] MEDS: PANTOPRAZOLE 40 MG TABLET.DR. PO SCH ×2 (09:03→17:02)
[2020-01-23] MEDS: CLOPIDOGREL BISULFATE 75 MG TABLET PO SCH (09:03)
[2020-01-23 09:15] LABS: CALCIUM 8.3 mg/dL (8.5-10.1); CREATININE 3.1 mg/dL (0.7-1.3); GFR 21.2; MAGNESIUM 2.3 mg/dL (1.8-2.4); POTASSIUM 5.3 mmol/L (3.5-5.1)
--- NOTE | 2020-01-23 09:40 | PDOC ---
Infectious Disease Note Subjective Subjective Feeling better Vital Sign Vital Signs Vital Signs Date Time Temp Pulse Resp B/P (MAP) Pulse Ox O2 Delivery O2 Flow Rate FiO2 01/23/20 09:03 Room Air 01/23/20 09:03 89 128/78 01/23/20 07:59 97.6 18 100 97.6 Physical Exam PHYSICAL EXAM GENERAL: Alert and oriented gentleman, not in distress. VITAL SIGNS: Stable. Afebrile. HEENT: NAD. NECK: Supple. No JVP, no lymphadenopathy. LUNGS: Clear. HEART: S1, S2 regular. ABDOMEN: Benign. EXTREMITIES: Postsurgical dressing not open NEUROLOGIC: The patient is alert, awake and appropriate. No focal neurologic deficit. Labs Lab Laboratory Tests Test 01/22/20 12:01 01/22/20 17:14 01/22/20 21:08 01/23/20 07:40 Glucose (Fingerstick) 230 mg/dL (70-99) 145 mg/dL (70-99) 165 mg/dL (70-99) 126 mg/dL (70-99) Test 01/23/20 07:55 White Blood Count 11.2 x10^3/uL (4.0-11.0) Red Blood Count 3.10 x10^6/uL (4.30-5.70) Hemoglobin 8.6 g/dL (13.0-17.5) Hematocrit 26.5 % (39.0-53.0) Mean Corpuscular Volume 86 fL (79-100) Mean Corpuscular Hemoglobin 28 pg (25-35) Mean Corpuscular Hemoglobin Concent 32 g/dL (31-37) Red Cell Distribution Width 15.2 % (11.5-14.5) Platelet Count 244 x10^3/uL (140-400) Neutrophils (%) (Auto) 84 % (31-73) Lymphocytes (%) (Auto) 8 % (24-48) Monocytes (%) (Auto) 8 % (0-9) Eosinophils (%) (Auto) 1 % (0-3) Basophils (%) (Auto) 0 % (0-3) Neutrophils # (Auto) 9.4 x10^3/uL (1.8-7.7) Lymphocytes # (Auto) 0.9 x10^3/uL (1.0-4.8) Monocytes # (Auto) 0.8 x10^3/uL (0.0-1.1) Eosinophils # (Auto) 0.1 x10^3/uL (0.0-0.7) Basophils # (Auto) 0.0 x10^3/uL (0.0-0.2) Sodium Level 134 mmol/L (136-145) Potassium Level 5.3 mmol/L (3.5-5.1) Chloride Level 103 mmol/L (98-107) Carbon Dioxide Level 21 mmol/L (21-32) Anion Gap 10 (6-14) Blood Urea Nitrogen 71 mg/dL (8-26) Creatinine 3.1 mg/dL (0.7-1.3) Estimated GFR (Cockcroft-Gault) 21.2 Glucose Level 128 mg/dL (70-99) Calcium Level 8.3 mg/dL (8.5-10.1) Phosphorus Level 3.0 mg/dL (2.6-4.7) Magnesium Level 2.3 mg/dL (1.8-2.4) Micro GRAM STAIN Final Final GRAM POSITIVE COCCI:MANY SQUAMOUS EPI CELL:NONE SEEN PMN (WBCs):FEW Unless otherwise specified, Testing Performed by: [address] [address] For Inquires, the Physician may contact the Microbiology department at [phone] ANAEROBIC-AEROBIC CULTURE Preliminary Preliminary MODERATE GRAM POSITIVE COCCI on 01/21/20 at 1109 FINAL ID= [STAPHYLOCOCCUS AUREUS] STAPHYLOCOCCUS AUREUS ANTIMICROBIAL SUSCEPTIBILITY Preliminary Comment POS IZA TYPE 38 STAPHYLOCOCCUS AUREUS ANTIBIOTIC RESULT INTERPRETATION AZITHROMYCIN <=2 S CLINDAMYCIN 0.5 S CEFOXITIN SCREEN <=4 NEG CIPROFLOXACIN <=1 S CEFTAROLINE <=0.5 S DAPTOMYCIN <=0.5 S ERYTHROMYCIN <=0.25 S GENTAMICIN <=4 S LINEZOLID 4 S LEVOFLOXACIN <=1 S OXACILLIN <=0.25 S PENICILLIN <=0.03 Carlos Eduardo CONTINUED ON NEXT PAGE RUN DATE: 01/22/20 [facility] *LIVE* PAGE 2 RUN TIME: 927 Specimen Inquiry SPEC: [id number] PATIENT: CHADDELLIBERTRAND Laurence [id number] (Continued) Procedure Result ANTIMICROBIAL SUSCEPTIBILITY Preliminary (continued) RIFAMPIN <=1 S TRIMETHOPRIM/SULFAMETHOXAZOLE <=0.5/9.5 S TETRACYCLINE <=4 S VANCOMYCIN 1 S Unless otherwise specified, Testing Performed by: [address] [address] For Inquires, the Physician may contact the Microbiology department at [phone] Objective Assessment Left big toe chronic ulcer with bone scan positive for osteomyelitis. s/p amputation, closed on 12/[address] Cheema. Wound dehiscence with purulent drainage and cellulitis of the foot, Past culture + serratia and PSAE Right big toe ulcer, superficial. Bone scan is positive for osteomyelitis, but there is no clinical evidence of chronic or deep wound on to the right big toe. s/p debridement of necrotic skin & subcutaneous tissue on 12/30. Peripheral arterial disease. Coronary artery disease. Diabetes. Hypertension. Noncompliance. Diarrhea Plan Plan of Care meropenem. Continue local care DULCE MARIA SRIVASTAVA MD Jan 23, 2020 09:40
[2020-01-23] MEDS ORDERED: MORPHINE SULFATE 2 MG/ML VIAL. IV PRN (11:30)
[2020-01-23 11:59] VITALS: BP 146/92
[2020-01-23] MEDS: IV NORMAL SALINE 1000ML BAG 1,000 ML IV SCH (12:20)
--- NOTE | 2020-01-23 14:11 | PDOC ---
Renal-Progress Notes Subjective Notes Notes FEELING BETTER History of Present Illness Hx of present illness STABLE Vitals Vitals Vital Signs Date Time Temp Pulse Resp B/P (MAP) Pulse Ox O2 Delivery O2 Flow Rate FiO2 01/23/20 13:53 Room Air 01/23/20 11:59 98.0 93 18 146/92 (110) 96 98.0 Weight Weight [ ] I.O. Intake and Output Intake and Output 01/23/20 07:00 Intake Total 1840 ml Balance 1840 ml Intake Oral 1840 ml # Voids 4 Labs Labs Laboratory Tests Test 01/22/20 17:14 01/22/20 21:08 01/23/20 07:40 01/23/20 07:55 Glucose (Fingerstick) 145 mg/dL (70-99) 165 mg/dL (70-99) 126 mg/dL (70-99) White Blood Count 11.2 x10^3/uL (4.0-11.0) Red Blood Count 3.10 x10^6/uL (4.30-5.70) Hemoglobin 8.6 g/dL (13.0-17.5) Hematocrit 26.5 % (39.0-53.0) Mean Corpuscular Volume 86 fL (79-100) Mean Corpuscular Hemoglobin 28 pg (25-35) Mean Corpuscular Hemoglobin Concent 32 g/dL (31-37) Red Cell Distribution Width 15.2 % (11.5-14.5) Platelet Count 244 x10^3/uL (140-400) Neutrophils (%) (Auto) 84 % (31-73) Lymphocytes (%) (Auto) 8 % (24-48) Monocytes (%) (Auto) 8 % (0-9) Eosinophils (%) (Auto) 1 % (0-3) Basophils (%) (Auto) 0 % (0-3) Neutrophils # (Auto) 9.4 x10^3/uL (1.8-7.7) Lymphocytes # (Auto) 0.9 x10^3/uL (1.0-4.8) Monocytes # (Auto) 0.8 x10^3/uL (0.0-1.1) Eosinophils # (Auto) 0.1 x10^3/uL (0.0-0.7) Basophils # (Auto) 0.0 x10^3/uL (0.0-0.2) Sodium Level 134 mmol/L (136-145) Potassium Level 5.3 mmol/L (3.5-5.1) Chloride Level 103 mmol/L (98-107) Carbon Dioxide Level 21 mmol/L (21-32) Anion Gap 10 (6-14) Blood Urea Nitrogen 71 mg/dL (8-26) Creatinine 3.1 mg/dL (0.7-1.3) Estimated GFR (Cockcroft-Gault) 21.2 Glucose Level 128 mg/dL (70-99) Calcium Level 8.3 mg/dL (8.5-10.1) Phosphorus Level 3.0 mg/dL (2.6-4.7) Magnesium Level 2.3 mg/dL (1.8-2.4) Test 01/23/20 11:08 Glucose (Fingerstick) 121 mg/dL (70-99) Micro Micro Microbiology 01/19/20 Gram Stain - Final, Resulted 01/19/20 Aerobic and Anaerobic Culture - Preliminary, Resulted 01/19/20 Antimicrobic Susceptibility - Preliminary, Resulted 01/18/20 Blood Culture - Preliminary, Resulted NO GROWTH AFTER 4 DAYS Review of Systems Constitutional: yes: alert, oriented Ears/Nose/Throat: Yes: no symptom reported Eyes: Yes: no symptom reported Pulmonary: Yes no symptom reported Cardiovascular: Yes no symptom reported Gastrointestional: Yes: constipation Genitourinary: Yes: no symptom reported Musculoskeletal: Yes: joint pain Skin: Yes no symptom reported Psychiatric/Neurological: Yes: no symptom reported Endocrine: Yes: no symptom reported Physical Exam General Appearance: no apparent distress Skin: warm Respiratory: bilateral CTA Heart: S1S2 Abdomen: soft, bowel sounds present Genitourinary: bladder flat Extremities: pulses present Neurology: alert Musculoskeletal: Other Assessment Assessment IMP MILD HYPERKALEMIA-STABLE MILD HYPONATREMIA-BETTER LEATHA-CR OF 4.4-HX OF LEATHA NEEDING HD COUPLE YEARS AGO WHILE AT [facility]-CR DOWN TO 3.1 CKD STATGE 4-CR AT BASELINE NOW 2.8-3.2 ON AVG L BIG TOE ULCER AND OSTEOMYELITIS-S/P AMP-EARLIER THIS MONTH HX RIGHT FOOT CELLULITIS ANEMIA OF CKD DM II HTN PLAN WOUND CARE ANTIBIOTICS HYDRATION AVOID NEPHROTOXINS ENC PT TO KEEP OP APPT AT D/C LABS IN AM WILL FOLLOW PAT GARRISON MD Jan 23, 2020 14:11
--- NOTE | 2020-01-23 15:00 | NUR ---
This morning patient called about if he could get in the shower. This Rn spoke to Dr. Lizarraga regarding letting patient get in the shower with his newly amputated toes. Per .dylan orders patient is not allowed to get dressing wet. Dr Lizarraga educated patient regarding post op instruction for showering. This RN reinforced teaching and told patient he could shower as long as he kept the foot elevated on a chair and kept the foot outside the shower. Patient was set up with a chair in the shower and a chair outside the shower so that he could keep his foot clean and intact. When patient got in the shower, the sap bw bi developer went to check on patient and he had removed both chairs and was standing with his foot getting wet. After shower this rn removed dressing which was wet, reinforced teaching and patient denied having foot in the shower even though he was seen with his foot in the water. Will continue to monitor and care for according to poc.
[2020-01-23 15:59] VITALS: BP 134/85
--- NOTE | 2020-01-23 18:30 | PDOC ---
[facility] PROGRESS NOTE Date of Service DOS: DATE: 01/23/20 TIME: 18:27 Chief Complaint Chief Complaint Left first toe ulcer status post amputation 01/21/2020 History of osteomyelitis status post amputation Peripheral arterial disease. Coronary artery disease. Diabetes. Hypertension. Medical nonadherence CKD, baseline Hyponatremia Hyperkalemia Continue IV meropenem Continue IV morphine and Sidney PRN for pain control Pending wound and blood cultures Appreciate infectious disease recommendations Appreciate Ortho recommendations Heparin for DVT prophylaxis ADA diet Full code Discussed with RN and SW Dispo pending further Ortho evaluation and blood culture sensitivities Surrogate decision maker is self History of Present Illness History of Present Illness Patient is 54-year-old male with severe peripheral vascular disease and bilateral foot ulcers where the toes have become infected and has history of osteomyelitis. Patient recently had surgery with Dr. Cheema on December 30. Wound care nurse has been concerned with swelling has been getting worse with purulent drainage and erythema. Patient has been seen by orthopedics and vascular surgery. They are planning for possible amputation this Friday01/19/2020 No acute events since admission. Patient seen and examined bedside. Patient is tolerating diet. Pain is well controlled. Patient's chart, labs, images were reviewed and discussed with RN 01/20/2020 No acute events overnight. Patient seen and examined bedside. Patient is tolerating diet. IV morphine added for more pain control. Patient has chronic pain that is managed by outpatient opioid medications. Patient's chart, labs, images were reviewed and discussed with RN 01/21/2020 No acute events overnight patient seen and examined bedside. On-call to the OR. Patient's chart, labs, images were reviewed and discussed with RN 01/22/2020 No acute events overnight. Patient's pain is well controlled. Patient is tolerating diet. Patient's chart, labs, images were reviewed and discussed with RN 01/23/2020 No acute events overnight. Patient's pain is moderately controlled. Will increase intervals of morphine and Sidney coverage. Wound evaluated by Ortho and no recommendations at the time. Would plan for discharge tomorrow. Patient's chart, labs, images were reviewed and discussed with RN Vitals/I&O Vitals/I&O: Vital Signs Date Time Temp Pulse Resp B/P (MAP) Pulse Ox O2 Delivery O2 Flow Rate FiO2 01/23/20 18:02 Room Air 01/23/20 17:03 89 134/85 01/23/20 15:59 97.9 20 98 97.9 I & O 01/22/20 01/22/20 01/23/20 14:59 22:59 06:59 Intake Total 1120 ml 120 ml 600 ml Balance 1120 ml 120 ml 600 ml Physical Exam Physical Exam: GENERAL: Alert and oriented gentleman, not in distress. VITAL SIGNS: Stable. Afebrile. HEENT: NAD. NECK: Supple. No JVP, no lymphadenopathy. LUNGS: Clear. HEART: S1, S2 regular. ABDOMEN: Benign. EXTREMITIES: Postsurgical dressing not open NEUROLOGIC: The patient is alert, awake and appropriate. No focal neurologic deficit. General: Alert, Oriented X3, Cooperative, No acute distress Heart: Regular rate Lungs: Clear Abdomen: Normal bowel sounds, Soft Extremities: No clubbing, Other (LEFT FOOT ERYTHEMA) Labs Labs: Laboratory Tests Test 01/22/20 21:08 01/23/20 07:40 01/23/20 07:55 01/23/20 11:08 Glucose (Fingerstick) 165 mg/dL (70-99) 126 mg/dL (70-99) 121 mg/dL (70-99) White Blood Count 11.2 x10^3/uL (4.0-11.0) Red Blood Count 3.10 x10^6/uL (4.30-5.70) Hemoglobin 8.6 g/dL (13.0-17.5) Hematocrit 26.5 % (39.0-53.0) Mean Corpuscular Volume 86 fL (79-100) Mean Corpuscular Hemoglobin 28 pg (25-35) Mean Corpuscular Hemoglobin Concent 32 g/dL (31-37) Red Cell Distribution Width 15.2 % (11.5-14.5) Platelet Count 244 x10^3/uL (140-400) Neutrophils (%) (Auto) 84 % (31-73) Lymphocytes (%) (Auto) 8 % (24-48) Monocytes (%) (Auto) 8 % (0-9) Eosinophils (%) (Auto) 1 % (0-3) Basophils (%) (Auto) 0 % (0-3) Neutrophils # (Auto) 9.4 x10^3/uL (1.8-7.7) Lymphocytes # (Auto) 0.9 x10^3/uL (1.0-4.8) Monocytes # (Auto) 0.8 x10^3/uL (0.0-1.1) Eosinophils # (Auto) 0.1 x10^3/uL (0.0-0.7) Basophils # (Auto) 0.0 x10^3/uL (0.0-0.2) Sodium Level 134 mmol/L (136-145) Potassium Level 5.3 mmol/L (3.5-5.1) Chloride Level 103 mmol/L (98-107) Carbon Dioxide Level 21 mmol/L (21-32) Anion Gap 10 (6-14) Blood Urea Nitrogen 71 mg/dL (8-26) Creatinine 3.1 mg/dL (0.7-1.3) Estimated GFR (Cockcroft-Gault) 21.2 Glucose Level 128 mg/dL (70-99) Calcium Level 8.3 mg/dL (8.5-10.1) Phosphorus Level 3.0 mg/dL (2.6-4.7) Magnesium Level 2.3 mg/dL (1.8-2.4) Test 01/23/20 17:04 Glucose (Fingerstick) 179 mg/dL (70-99) Assessment and Plan Assessmemt and Plan Problems Medical Problems: (1) Acute on chronic renal insufficiency Status: Acute (2) Cellulitis of left foot Status: Acute Comment Review of Relevant I have reviewed the following items gavin (where applicable) has been applied. Justifications for Admission Other Justification MADISON GUTIERREZ MD Jan 23, 2020 18:30
[2020-01-23 19:00] VITALS: BP 135/83
[2020-01-23] MEDS: TEMAZEPAM 15 MG CAPSULE PO SCH (22:24)
[2020-01-23] MEDS: rOPINIRole 0.25 MG TABLET. PO SCH (22:25)
[2020-01-23] MEDS: ATORVASTATIN CALCIUM 40 MG TABLET. PO SCH (22:25)
[2020-01-23] MEDS: traZODone 50 MG TABLET. PO SCH (22:25)
[2020-01-23 23:00] VITALS: BP 143/88
[2020-01-24] MEDS: IV NORMAL SALINE 1000ML BAG 1,000 ML IV SCH ×2 (00:52→17:43)
[2020-01-24] MEDS: HYDROcodone/APAP 10/325 1 TAB TABLET PO PRN ×4 (00:56→17:44)
[2020-01-24 07:24] LABS: CREATININE 2.8 mg/dL (0.7-1.3); GFR 23.8; POTASSIUM 5.3 mmol/L (3.5-5.1)
[2020-01-24] MEDS: INSULIN LISPRO 300 UNITS/3 ML VIAL. SQ SCH ×4 (07:30→21:00)
[2020-01-24 07:44] VITALS: BP 145/81
[2020-01-24] MEDS: LACTOBACILLUS RHAMNOSUS GG 1 CAPSULE. PO SCH ×2 (08:36→21:52)
[2020-01-24] MEDS: ASPIRIN CHEWABLE 81 MG TABLET. PO SCH (08:37)
[2020-01-24] MEDS: ISOSORBIDE MONONITRATE ER 30 MG TAB.ER.24H PO SCH (08:37)
[2020-01-24] MEDS: MULTIVITAMIN with MINERAL TABLET. PO SCH (08:37)
[2020-01-24] MEDS: GABAPENTIN 300 MG CAPSULE. PO SCH ×2 (08:37→21:52)
[2020-01-24] MEDS: CLOPIDOGREL BISULFATE 75 MG TABLET PO SCH (08:37)
[2020-01-24] MEDS: amLODIPine BESYLATE 10 MG TABLET PO SCH (08:38)
[2020-01-24] MEDS: CARVEDILOL 12.5 MG TABLET. PO SCH ×2 (08:38→17:44)
[2020-01-24] MEDS: PANTOPRAZOLE 40 MG TABLET.DR. PO SCH ×2 (08:38→17:43)
[2020-01-24] MEDS: MEROPENEM 1 GM in IV NORMAL SALINE 100ML 100 ML IV SCH (08:39)
[2020-01-24] MEDS: cloNIDine HCL 0.1 MG TABLET PO SCH ×3 (08:39→21:52)
[2020-01-24] MEDS: oxyCODONE ER 10 MG TAB.ER.12H PO SCH (08:39)
[2020-01-24] MEDS: ASCORBIC ACID 500 MG TABLET PO SCH (08:39)
--- NOTE | 2020-01-24 09:00 | PDOC ---
Infectious Disease Note Subjective: Subjective Feeling better still has pain in the lt foot as his pain med were adjusted Vital Signs: Vital Signs Vital Signs Date Time Temp Pulse Resp B/P (MAP) Pulse Ox O2 Delivery O2 Flow Rate FiO2 01/24/20 08:39 Room Air 01/24/20 08:39 94 145/81 01/24/20 07:44 97.6 20 98 97.6 Physical Exam: PHYSICAL EXAM GENERAL: Alert and oriented gentleman, not in distress. HEENT: NAD. NECK: Supple. No JVP, no lymphadenopathy. LUNGS: Clear. HEART: S1, S2 regular. ABDOMEN: Benign. EXTREMITIES: Postsurgical dressing not open NEUROLOGIC: The patient is alert, awake and appropriate. No focal neurologic deficit. Medications: Inpatient Meds: Current Medications Medications (Trade) Dose Ordered Sig/Jerri Start Time Stop Time Status Last Admin Dose Admin Acetaminophen (Tylenol) 1,000 mg 1X ONCE 01/18/20 15:15 01/18/20 15:18 DC 01/18/20 15:28 1,000 MG Acetaminophen/ Hydrocodone Bitart (Lortab 10/325) 1 tab PRN Q4HRS PRN 01/18/20 23:15 01/24/20 05:54 1 TAB Amlodipine Besylate (Norvasc) 10 mg DAILY 01/19/20 09:00 01/24/20 08:38 10 MG Ascorbic Acid (Vitamin C) 500 mg DAILY 01/21/20 17:00 01/24/20 08:39 500 MG Aspirin (Aspirin Chewable) 81 mg DAILYWBKFT 01/19/20 08:00 01/24/20 08:37 81 MG Atorvastatin Calcium (Lipitor) 40 mg QHS 01/19/20 21:00 01/23/20 22:25 40 MG Bacitracin 73682 unit/Sodium Chloride 500 ml @ 500 mls/hr 1X ONCE 01/21/20 06:00 01/21/20 06:59 DC Carvedilol (Coreg) 25 mg BIDWMEALS 01/19/20 00:30 01/24/20 08:38 25 MG Clonidine HCl (Catapres) 0.1 mg TID 01/19/20 09:00 01/24/20 08:39 0.1 MG Clopidogrel Bisulfate (Plavix) 75 mg DAILYWBKFT 01/19/20 08:00 01/24/20 08:37 75 MG Dexamethasone Sodium Phosphate (Decadron) 4 mg STK-MED ONCE 01/21/20 15:03 01/21/20 15:04 DC Dextrose (Dextrose 50%-Water Syringe) 12.5 gm PRN Q15MIN PRN 01/19/20 14:00 Ephedrine Sulfate (ePHEDrine PF IN SALINE SYRINGE) 50 mg STK-MED ONCE 01/21/20 15:58 01/21/20 15:58 DC Fentanyl Citrate (Fentanyl 2ml Vial) 100 mcg STK-MED ONCE 01/21/20 16:46 01/21/20 16:46 DC Gabapentin (Neurontin) 300 mg BID 01/19/20 09:00 01/24/20 08:37 300 MG Hydralazine HCl (Apresoline) 100 mg TID 01/19/20 00:30 01/24/20 08:38 100 MG Hydromorphone HCl (Dilaudid) 0.5 mg PRN Q10MIN PRN 01/21/20 14:45 01/22/20 14:44 DC Insulin Human Lispro (HumaLOG VIAL for OP,RR ONLY) 0-10 units PRN Q1HR PRN 01/21/20 15:15 01/22/20 15:14 DC Insulin Human Lispro (HumaLOG) 0-7 UNITS QIDACHS 01/21/20 23:45 01/23/20 21:00 3 UNITS Isosorbide Mononitrate (Imdur) 60 mg DAILY 01/19/20 09:00 01/24/20 08:37 60 MG Lactobacillus Rhamnosus (Culturelle) 1 cap BID 01/19/20 21:00 01/24/20 08:36 1 CAP Lidocaine HCl (Lidocaine Pf 2% Vial) 5 ml STK-MED ONCE 01/21/20 15:03 01/21/20 15:04 DC Linezolid (Zyvox) 600 mg BID 01/20/20 10:00 01/22/20 16:00 DC 01/22/20 08:38 600 MG Meropenem 1 gm/ Sodium Chloride 100 ml @ 200 mls/hr DAILY 01/19/20 12:00 01/24/20 08:39 200 MLS/HR Morphine Sulfate (Morphine Sulfate) 2 mg PRN Q2HR PRN 01/23/20 11:30 UNV Multivitamins (Thera M Plus) 1 tab DAILY 01/21/20 17:00 01/24/20 08:37 1 TAB Neomycin/ Polymyxin/ Bacitracin (Triple Antibiotic Ointment) 1 pkt STK-MED ONCE 01/21/20 16:36 01/21/20 16:37 DC Non-Formulary Medication (Ropinirole Hcl ) 0.5 mg HS 01/19/20 21:00 01/18/20 23:11 DC Ondansetron HCl (Zofran) 4 mg STK-MED ONCE 01/21/20 15:03 01/21/20 15:04 DC Oxycodone HCl (OxyCONTIN) 10 mg BID 01/19/20 00:30 01/24/20 08:39 10 MG Pantoprazole Sodium (Protonix) 40 mg BIDAC 01/19/20 00:30 01/24/20 08:38 40 MG Phenylephrine HCl (PHENYLEPHRINE in 0.9% NACL PF) 1 mg STK-MED ONCE 01/21/20 15:58 01/21/20 15:58 DC Piperacillin Sod/ Tazobactam Sod 2.25 gm/Sodium Chloride 50 ml @ 100 mls/hr Q6HRS 01/19/20 09:30 01/19/20 11:05 DC 01/19/20 10:43 100 MLS/HR Piperacillin Sod/ Tazobactam Sod 3.375 gm/Sodium Chloride 50 ml @ 100 mls/hr Q6HRS 01/19/20 12:00 UNV Prochlorperazine Edisylate (Compazine) 5 mg PACU PRN PRN 01/21/20 14:45 01/22/20 14:44 DC Propofol (Diprivan) 200 mg STK-MED ONCE 01/21/20 15:03 01/21/20 15:04 DC Ringer's Solution 1,000 ml @ 30 mls/hr Q24H 01/21/20 14:43 01/22/20 02:42 DC Ropinirole HCl (Requip) 0.5 mg HS 01/19/20 00:30 01/23/20 22:25 0.5 MG Sodium Chloride 1,000 ml @ 75 mls/hr [id number] 01/19/20 15:00 01/24/20 00:52 75 MLS/HR Temazepam (Restoril) 30 mg QHS 01/19/20 00:30 01/23/20 22:24 30 MG Trazodone HCl (Desyrel) 50 mg QHS 01/19/20 00:30 01/23/20 22:25 50 MG Vancomycin HCl (Vanco Per Pharmacy) 1 each PRN DAILY PRN 01/18/20 14:45 01/19/20 11:05 DC 01/18/20 18:07 1 EACH Vancomycin HCl 2 gm/Sodium Chloride 500 ml @ 250 mls/hr 1X ONCE 01/18/20 15:00 01/18/20 16:59 DC 01/18/20 15:07 250 MLS/HR Labs: Lab Laboratory Tests Test 01/23/20 11:08 01/23/20 17:04 01/23/20 21:17 01/24/20 05:50 Glucose (Fingerstick) 121 mg/dL (70-99) 179 mg/dL (70-99) 171 mg/dL (70-99) Sodium Level 136 mmol/L (136-145) Potassium Level 5.3 mmol/L (3.5-5.1) Chloride Level 106 mmol/L (98-107) Carbon Dioxide Level 19 mmol/L (21-32) Anion Gap 11 (6-14) Blood Urea Nitrogen 70 mg/dL (8-26) Creatinine 2.8 mg/dL (0.7-1.3) Estimated GFR (Cockcroft-Gault) 23.8 Glucose Level 150 mg/dL (70-99) Calcium Level 8.0 mg/dL (8.5-10.1) Objective: Assessment: Left big toe chronic ulcer with bone scan positive for osteomyelitis. s/p amputation, closed on 12/[address] Cheema. Wound dehiscence with purulent drainage and cellulitis of the foot, cults MSSA Past culture + serratia and PSAE completed treatment for the same Right big toe ulcer, superficial. Bone scan is positive for osteomyelitis, but there is no clinical evidence of chronic or deep wound on to the right big toe. s/p debridement of necrotic skin & subcutaneous tissue on 12/30. jan 21 s/p Left first toe amputation including the metatarsal bone with wound;closed swab cult MSSA Peripheral arterial disease. Coronary artery disease. Diabetes. Hypertension. Noncompliance. Diarrhea Plan: Plan of Care meropenem. Continue local care AURELIA SRIVASTAVA MD Jan 24, 2020 09:00
--- NOTE | 2020-01-24 09:14 | PDOC ---
[facility] PROGRESS NOTE Date of Service DOS: DATE: 01/24/20 TIME: 09:14 Chief Complaint Chief Complaint Left first toe ulcer status post amputation 01/21/2020 History of osteomyelitis status post amputation Peripheral arterial disease. Coronary artery disease. Diabetes. Hypertension. Medical nonadherence CKD, baseline Hyponatremia Hyperkalemia Continue IV meropenem Continue IV morphine and [place] PRN for pain control Pending wound and blood cultures Appreciate infectious disease recommendations Appreciate Ortho recommendations Heparin for DVT prophylaxis ADA diet Full code Discussed with RN and SW Dispo pending further Ortho evaluation and blood culture sensitivities Surrogate decision maker is self History of Present Illness History of Present Illness Mr Dejesus is 54-year-old male with severe peripheral vascular disease and bilateral foot ulcers where the toes have become infected and has history of osteomyelitis. Patient recently had surgery with Dr. Cheema on December 30. Wound care nurse has been concerned with swelling has been getting worse with purulent drainage and erythema. Patient has been seen by orthopedics and vascular surgery. 01/18:No acute events since admission. Patient seen and examined bedside. Patient is tolerating diet. Pain is well controlled. Patient's chart, labs, images were reviewed and discussed with RN 01/19: No acute events overnight. Patient seen and examined bedside. Patient is tolerating diet. IV morphine added for more pain control. Patient has chronic pain that is managed by outpatient opioid medications. Patient's chart, labs, images were reviewed and discussed with RN 01/20: To OR: Left first toe amputation including the metatarsal bone with wound debridement and washout 01/21: No acute events overnight. Patient's pain is well controlled. Patient is tolerating diet. Patient's chart, labs, images were reviewed and discussed with RN 01/22: No acute events overnight. Patient's pain is moderately controlled. Will increase intervals of morphine and [place] coverage. Wound evaluated by Ortho and no recommendations at the time. Afebrile. BUN 70 creatinine 3.1. Tolerating meropenem well. Seen ambulating in the room. He is complaining that he knows that OxyContin will not be covered outside the hospital. Does not think his pain will be adequately controlled on discharge Vitals/I&O Vitals/I&O: Vital Signs Date Time Temp Pulse Resp B/P (MAP) Pulse Ox O2 Delivery O2 Flow Rate FiO2 01/24/20 08:39 Room Air 01/24/20 08:39 94 145/81 01/24/20 07:44 97.6 20 98 97.6 I & O 01/23/20 01/23/20 01/24/20 15:00 23:00 07:00 Intake Total 440 ml 1829 ml Balance 440 ml 1829 ml Physical Exam Physical Exam: GENERAL: Alert and oriented gentleman, not in distress. VITAL SIGNS: Stable. Afebrile. HEENT: NAD. NECK: Supple. No JVP, no lymphadenopathy. LUNGS: Clear. HEART: S1, S2 regular. ABDOMEN: Benign. EXTREMITIES: Postsurgical dressing not open NEUROLOGIC: The patient is alert, awake and appropriate. No focal neurologic deficit. General: Alert, Oriented X3, Cooperative, No acute distress Heart: Regular rate Lungs: Clear Abdomen: Normal bowel sounds, Soft Extremities: No clubbing, Other (LEFT FOOT ERYTHEMA) Labs Labs: Laboratory Tests Test 01/23/20 11:08 01/23/20 17:04 01/23/20 21:17 01/24/20 05:50 Glucose (Fingerstick) 121 mg/dL (70-99) 179 mg/dL (70-99) 171 mg/dL (70-99) Sodium Level 136 mmol/L (136-145) Potassium Level 5.3 mmol/L (3.5-5.1) Chloride Level 106 mmol/L (98-107) Carbon Dioxide Level 19 mmol/L (21-32) Anion Gap 11 (6-14) Blood Urea Nitrogen 70 mg/dL (8-26) Creatinine 2.8 mg/dL (0.7-1.3) Estimated GFR (Cockcroft-Gault) 23.8 Glucose Level 150 mg/dL (70-99) Calcium Level 8.0 mg/dL (8.5-10.1) Assessment and Plan Assessmemt and Plan Problems Medical Problems: (1) Acute on chronic renal insufficiency Status: Acute (2) Cellulitis of left foot Status: Acute Comment Review of Relevant I have reviewed the following items gavin (where applicable) has been applied. Justifications for Admission Other Justification PUMA ROSS MD Jan 24, 2020 09:14
--- NOTE | 2020-01-24 10:11 | PDOC ---
DATE OF SERVICE DATE: 01/24/20 TIME: 10:11 SUBJECTIVE ROS No complaints OBJECTIVE Vital Signs Vital Signs Date Time Temp Pulse Resp B/P (MAP) Pulse Ox O2 Delivery O2 Flow Rate FiO2 01/24/20 08:39 Room Air 01/24/20 08:39 94 145/81 01/24/20 07:44 97.6 20 98 97.6 I & 0 Intake and Output 01/24/20 06:59 Intake Total 2269 ml Balance 2269 ml Intake Oral 680 ml IV Total 1589 ml # Voids 2 PHYSICAL EXAM Physical Exam GENERAL: Alert and oriented gentleman, not in distress. HEENT: NAD. NECK: Supple. No JVP, no lymphadenopathy. LUNGS: Clear. HEART: S1, S2 regular. ABDOMEN: Benign. EXTREMITIES: Postsurgical dressing not open NEUROLOGIC: The patient is alert, awake and appropriate. No focal neurologic deficit. DIAGNOSIS/ASSESSMENT Assessment & Plan CKD stage 3 - Suspect sec to HTN and CHF Baseline 2.4-3 , Currently at baseline Has 1 st OP appt at our office on 02/03 with INTERVENTION NURSE HyperKalemia- mild .monitor HypoNatremia - resolved , mild Hx of LEATHA recently with Cr peaked at 5.2 Unremarkable US and UA in 2019 , CT scan at [facility] on 12/26- Unremarkable Kidneys Past LEATHA - at [facility] requiring HD x 2 Hospitalized at [facility] Jan 2019 with BUN/Cr 130/ 6.5, renal function improved with Cr in 2's He still doesn't see Nephrology as OP despite recommendations Left first toe ulcer status post amputation 01/21/2020 History of osteomyelitis status post amputation Recent Hx of osteomyelitis Chronic pain syndrome chronic opioid and benzo use Cardiomyopathy: EF 30-35% in 2019 HTN: BP high suspect due to Chronic Non compliance DM2 : per PCP CAD: PCI/BMS to LAD/RCA, clinically stable. Anemia- Hgb stable, No indication for CELENA Chronic Noncompliance with meds, appointments COMMENT/RELEVANT DATA Meds Current Medications Medications (Trade) Dose Ordered Sig/Jerri Start Time Stop Time Status Last Admin Dose Admin Acetaminophen (Tylenol) 1,000 mg 1X ONCE 01/18/20 15:15 01/18/20 15:18 DC 01/18/20 15:28 1,000 MG Acetaminophen/ Hydrocodone Bitart (Lortab 10/325) 1 tab PRN Q4HRS PRN 01/18/20 23:15 01/24/20 05:54 1 TAB Amlodipine Besylate (Norvasc) 10 mg DAILY 01/19/20 09:00 01/24/20 08:38 10 MG Ascorbic Acid (Vitamin C) 500 mg DAILY 01/21/20 17:00 01/24/20 08:39 500 MG Aspirin (Aspirin Chewable) 81 mg DAILYWBKFT 01/19/20 08:00 01/24/20 08:37 81 MG Atorvastatin Calcium (Lipitor) 40 mg QHS 01/19/20 21:00 01/23/20 22:25 40 MG Bacitracin 33548 unit/Sodium Chloride 500 ml @ 500 mls/hr 1X ONCE 01/21/20 06:00 01/21/20 06:59 DC Carvedilol (Coreg) 25 mg BIDWMEALS 01/19/20 00:30 01/24/20 08:38 25 MG Clonidine HCl (Catapres) 0.1 mg TID 01/19/20 09:00 01/24/20 08:39 0.1 MG Clopidogrel Bisulfate (Plavix) 75 mg DAILYWBKFT 01/19/20 08:00 01/24/20 08:37 75 MG Dexamethasone Sodium Phosphate (Decadron) 4 mg STK-MED ONCE 01/21/20 15:03 01/21/20 15:04 DC Dextrose (Dextrose 50%-Water Syringe) 12.5 gm PRN Q15MIN PRN 01/19/20 14:00 Ephedrine Sulfate (ePHEDrine PF IN SALINE SYRINGE) 50 mg STK-MED ONCE 01/21/20 15:58 01/21/20 15:58 DC Fentanyl Citrate (Fentanyl 2ml Vial) 100 mcg STK-MED ONCE 01/21/20 16:46 01/21/20 16:46 DC Gabapentin (Neurontin) 300 mg BID 01/19/20 09:00 01/24/20 08:37 300 MG Hydralazine HCl (Apresoline) 100 mg TID 01/19/20 00:30 01/24/20 08:38 100 MG Hydromorphone HCl (Dilaudid) 0.5 mg PRN Q10MIN PRN 01/21/20 14:45 01/22/20 14:44 DC Insulin Human Lispro (HumaLOG VIAL for OP,RR ONLY) 0-10 units PRN Q1HR PRN 01/21/20 15:15 01/22/20 15:14 DC Insulin Human Lispro (HumaLOG) 0-7 UNITS QIDACHS 01/21/20 23:45 01/23/20 21:00 3 UNITS Isosorbide Mononitrate (Imdur) 60 mg DAILY 01/19/20 09:00 01/24/20 08:37 60 MG Lactobacillus Rhamnosus (Culturelle) 1 cap BID 01/19/20 21:00 01/24/20 08:36 1 CAP Lidocaine HCl (Lidocaine Pf 2% Vial) 5 ml STK-MED ONCE 01/21/20 15:03 01/21/20 15:04 DC Linezolid (Zyvox) 600 mg BID 01/20/20 10:00 01/22/20 16:00 DC 01/22/20 08:38 600 MG Meropenem 1 gm/ Sodium Chloride 100 ml @ 200 mls/hr DAILY 01/19/20 12:00 01/24/20 08:39 200 MLS/HR Morphine Sulfate (Morphine Sulfate) 2 mg PRN Q2HR PRN 01/23/20 11:30 UNV Multivitamins (Thera M Plus) 1 tab DAILY 01/21/20 17:00 01/24/20 08:37 1 TAB Neomycin/ Polymyxin/ Bacitracin (Triple Antibiotic Ointment) 1 pkt STK-MED ONCE 01/21/20 16:36 01/21/20 16:37 DC Non-Formulary Medication (Ropinirole Hcl ) 0.5 mg HS 01/19/20 21:00 01/18/20 23:11 DC Ondansetron HCl (Zofran) 4 mg STK-MED ONCE 01/21/20 15:03 01/21/20 15:04 DC Oxycodone HCl (OxyCONTIN) 10 mg BID 01/19/20 00:30 01/24/20 08:39 10 MG Pantoprazole Sodium (Protonix) 40 mg BIDAC 01/19/20 00:30 01/24/20 08:38 40 MG Phenylephrine HCl (PHENYLEPHRINE in 0.9% NACL PF) 1 mg STK-MED ONCE 01/21/20 15:58 01/21/20 15:58 DC Piperacillin Sod/ Tazobactam Sod 2.25 gm/Sodium Chloride 50 ml @ 100 mls/hr Q6HRS 01/19/20 09:30 01/19/20 11:05 DC 01/19/20 10:43 100 MLS/HR Piperacillin Sod/ Tazobactam Sod 3.375 gm/Sodium Chloride 50 ml @ 100 mls/hr Q6HRS 01/19/20 12:00 UNV Prochlorperazine Edisylate (Compazine) 5 mg PACU PRN PRN 01/21/20 14:45 01/22/20 14:44 DC Propofol (Diprivan) 200 mg STK-MED ONCE 01/21/20 15:03 01/21/20 15:04 DC Ringer's Solution 1,000 ml @ 30 mls/hr Q24H 01/21/20 14:43 01/22/20 02:42 DC Ropinirole HCl (Requip) 0.5 mg HS 01/19/20 00:30 01/23/20 22:25 0.5 MG Sodium Chloride 1,000 ml @ 75 mls/hr [id number] 01/19/20 15:00 01/24/20 00:52 75 MLS/HR Temazepam (Restoril) 30 mg QHS 01/19/20 00:30 01/23/20 22:24 30 MG Trazodone HCl (Desyrel) 50 mg QHS 01/19/20 00:30 01/23/20 22:25 50 MG Vancomycin HCl (Vanco Per Pharmacy) 1 each PRN DAILY PRN 01/18/20 14:45 01/19/20 11:05 DC 01/18/20 18:07 1 EACH Vancomycin HCl 2 gm/Sodium Chloride 500 ml @ 250 mls/hr 1X ONCE 01/18/20 15:00 01/18/20 16:59 DC 01/18/20 15:07 250 MLS/HR Lab Laboratory Tests Test 01/23/20 11:08 01/23/20 17:04 01/23/20 21:17 01/24/20 05:50 Glucose (Fingerstick) 121 mg/dL (70-99) 179 mg/dL (70-99) 171 mg/dL (70-99) Sodium Level 136 mmol/L (136-145) Potassium Level 5.3 mmol/L (3.5-5.1) Chloride Level 106 mmol/L (98-107) Carbon Dioxide Level 19 mmol/L (21-32) Anion Gap 11 (6-14) Blood Urea Nitrogen 70 mg/dL (8-26) Creatinine 2.8 mg/dL (0.7-1.3) Estimated GFR (Cockcroft-Gault) 23.8 Glucose Level 150 mg/dL (70-99) Calcium Level 8.0 mg/dL (8.5-10.1) Results All relevant outside records, renal labs, imaging studies, telemetry/EKG's were reviewed. Justicifation of Admission Dx: Justifications for Admission: Justification of Admission Dx: Yes Acute Renal Failure: Serum Cr > 4mg/dL Cellulitis: Cellulitis MARTIN ESTEVEZ MD Jan 24, 2020 10:11
--- NOTE | 2020-01-24 10:53 | NUR ---
not previously completed Addendum: 01/24/20 at 1053 by NISHANT MCCLELLAN RN RN Amended: Links added.
[2020-01-24 11:27] VITALS: BP 135/83
--- NOTE | 2020-01-24 11:57 | NUR ---
TORY following. Spoke with RN and reviewed chart. Pt started on IV Meropenem. Spoke with pt who stated he drives and is not homebound. Pt to resume out-patient wound care follow up at [facility] on discharge. Pt requesting home infusion for IV abx. TORY completed Patient Choice of Vendor form. TORY phoned and faxed referral to Elvis with [facility], , (fax). TORY following for IV abx setup. Addendum: 01/24/20 at 1200 by BITA SPEARS Elvis from [facility] to come evaluate pt at 1600. RN notified. Addendum: 01/24/20 at 1616 by BITA SPEARS Pt still needing PICC placed. Pt will likely not discharge until tomorrow, 01/25/2020. SW awaiting final decision from ID regarding IV Meropenem. Elvis from [facility] did provide education to pt on the Meropenem. SW did confirm benefits with [employer] and the Meropenem is covered at 100%. SW following
--- NOTE | 2020-01-24 14:08 | PDOC ---
Provider Note Date of Service: DATE: 01/24/20 TIME: 14:05 Provider Note Provider Note Vascular S: pt complain of pain left foot. Pt reports bleeding this morning. He reports he is not walking on it, however there is dirt on bottom of dressing. He has half shoe. Reports pain is not controlled, however when talking with RN hospitalist recently adjusted and apparently what the patient was telling me did not line up with what he has told her and told the hospitalist. O: vss, afebrile dressing removed and wound inspected. Evidence of bleeding. Incision intact, Looks fine. No surrounding erythema. A: stable status post left great toe amp with met head resection P: Ok for discharge from our standpoint once medically stable. Needs to Offload left forefoot, discussed with him and RN. cont PO abx upon discharge. Hospitalist addressing pain regimen, will not alter. f/u with Dr Lizarraga in 2-3 weeks. Justicifation of Admission Dx: Justifications for Admission: Justification of Admission Dx: Yes Acute Renal Failure: Serum Cr > 4mg/dL Cellulitis: Cellulitis ATTILA PANDYA Jan 24, 2020 14:08
[2020-01-24] MEDS: MORPHINE SULFATE 2 MG/ML VIAL. IV PRN (14:55)
--- NOTE | 2020-01-24 15:10 | NUR ---
Wound Care Wound Type/Assessment: right great toe DFU, pale pink wound bed. Left great toe amputation site-reddened, bleeding, sutures in place Treatment Recommendations/Plan: Dressed right great toe with collagen and foam dressing. Left great toe ordered to be dressed 1-2 daily with dry gauze. Education provided: PU prevention, wound care POC. Offloading surface/device: none Recommended Referrals/Tests: none Discharge Recommendations for dressings: continue as above ordered
[2020-01-24 15:39] VITALS: BP 149/76
[2020-01-24 19:00] VITALS: BP 152/84
[2020-01-24] MEDS: ATORVASTATIN CALCIUM 40 MG TABLET. PO SCH (21:52)
[2020-01-24] MEDS: rOPINIRole 0.25 MG TABLET. PO SCH (21:52)
[2020-01-24] MEDS: TEMAZEPAM 15 MG CAPSULE PO SCH (21:52)
[2020-01-24] MEDS: traZODone 50 MG TABLET. PO SCH (21:53)
[2020-01-24] MEDS: MORPHINE ER 15 MG TABLET.ER PO SCH (21:54)
[2020-01-24 22:45] VITALS: BP 152/84
[2020-01-25] MEDS: HYDROcodone/APAP 10/325 1 TAB TABLET PO PRN ×3 (01:56→16:55)
[2020-01-25] MEDS: IV NORMAL SALINE 1000ML BAG 1,000 ML IV SCH ×2 (01:56→17:12)
[2020-01-25 03:00] VITALS: BP 150/86
[2020-01-25 05:26] LABS: BASO # 0.1 x10^3/uL (0.0-0.2); BASO % 1 % (0-3); EOS # 0.5 x10^3/uL (0.0-0.7); EOS % 4 % (0-3); HEMATOCRIT 28.7 % (39.0-53.0); HEMOGLOBIN 9.3 g/dL (13.0-17.5); LYMPH % 9 % (24-48); MEAN CORPUSCULAR HEMOGLOBIN 27 pg (25-35); MEAN CORPUSCULAR HGB CONC 32 g/dL (31-37); MEAN CORPUSCULAR VOLUME 85 fL (79-100); MONO # 0.9 x10^3/uL (0.0-1.1); MONO % 8 % (0-9); NEUT # 8.6 x10^3/uL (1.8-7.7); NEUT % 78 % (31-73); PLATELET COUNT 322 x10^3/uL (140-400); RED BLOOD COUNT 3.38 x10^6/uL (4.30-5.70); RED CELL DISTRIBUTION WIDTH 15.3 % (11.5-14.5); WHITE BLOOD COUNT 11.1 x10^3/uL (4.0-11.0)
[2020-01-25 05:40] LABS: CALCIUM 8.4 mg/dL (8.5-10.1); CREATININE 2.6 mg/dL (0.7-1.3); GFR 25.9; POTASSIUM 5.5 mmol/L (3.5-5.1)
[2020-01-25 06:57] LABS: % BANDS 5 % (0-9); % EOS 6 % (0-5); % LYMPHS 11 % (24-48); % MONOS 8 % (0-10); % SEGS 70 % (35-66); PLT ESTIMATE ADEQUATE (ADEQUATE)
[2020-01-25 06:58] LABS: ANISOCYTOSIS SLIGHT; OVALOCYTES OCC
[2020-01-25] MEDS: INSULIN LISPRO 300 UNITS/3 ML VIAL. SQ SCH ×3 (07:30→16:30)
[2020-01-25 07:34] VITALS: BP 146/77
[2020-01-25] MEDS: CLOPIDOGREL BISULFATE 75 MG TABLET PO SCH (08:13)
[2020-01-25] MEDS: ASPIRIN CHEWABLE 81 MG TABLET. PO SCH (08:13)
[2020-01-25] MEDS: cloNIDine HCL 0.1 MG TABLET PO SCH ×2 (08:13→13:04)
[2020-01-25] MEDS: CARVEDILOL 12.5 MG TABLET. PO SCH ×2 (08:14→17:03)
[2020-01-25] MEDS: amLODIPine BESYLATE 10 MG TABLET PO SCH (08:14)
[2020-01-25] MEDS: ASCORBIC ACID 500 MG TABLET PO SCH (08:15)
[2020-01-25] MEDS: MEROPENEM 1 GM in IV NORMAL SALINE 100ML 100 ML IV SCH (08:17)
[2020-01-25] MEDS: PANTOPRAZOLE 40 MG TABLET.DR. PO SCH ×2 (08:17→16:56)
[2020-01-25] MEDS: LACTOBACILLUS RHAMNOSUS GG 1 CAPSULE. PO SCH (08:17)
[2020-01-25] MEDS: GABAPENTIN 300 MG CAPSULE. PO SCH (08:18)
[2020-01-25] MEDS: MULTIVITAMIN with MINERAL TABLET. PO SCH (08:18)
[2020-01-25] MEDS: MORPHINE ER 15 MG TABLET.ER PO SCH (08:18)
[2020-01-25] MEDS: ISOSORBIDE MONONITRATE ER 30 MG TAB.ER.24H PO SCH (08:22)
--- NOTE | 2020-01-25 09:10 | PDOC ---
Infectious Disease Note Subjective: Subjective Feeling better Pain is under control Denies any fever, chills, nausea, vomiting, diarrhea, abdominal pain Vital Signs: Vital Signs Vital Signs Date Time Temp Pulse Resp B/P (MAP) Pulse Ox O2 Delivery O2 Flow Rate FiO2 01/25/20 08:22 85 146/77 01/25/20 08:18 97 Room Air 10.0 01/25/20 07:34 99.1 19 99.1 Physical Exam: PHYSICAL EXAM GENERAL: Alert and oriented gentleman, not in distress. HEENT: NAD. NECK: Supple. No JVP, no lymphadenopathy. LUNGS: Clear. HEART: S1, S2 regular. ABDOMEN: Benign. EXTREMITIES: Postsurgical dressing not open NEUROLOGIC: The patient is alert, awake and appropriate. No focal neurologic deficit. Medications: Inpatient Meds: Current Medications Medications (Trade) Dose Ordered Sig/Jerri Start Time Stop Time Status Last Admin Dose Admin Acetaminophen (Tylenol) 1,000 mg 1X ONCE 01/18/20 15:15 01/18/20 15:18 DC 01/18/20 15:28 1,000 MG Acetaminophen/ Hydrocodone Bitart (Lortab 10/325) 1 tab PRN Q4HRS PRN 01/18/20 23:15 01/25/20 01:56 1 TAB Amlodipine Besylate (Norvasc) 10 mg DAILY 01/19/20 09:00 01/25/20 08:14 10 MG Ascorbic Acid (Vitamin C) 500 mg DAILY 01/21/20 17:00 01/25/20 08:15 500 MG Aspirin (Aspirin Chewable) 81 mg DAILYWBKFT 01/19/20 08:00 01/25/20 08:13 81 MG Atorvastatin Calcium (Lipitor) 40 mg QHS 01/19/20 21:00 01/24/20 21:52 40 MG Bacitracin 51537 unit/Sodium Chloride 500 ml @ 500 mls/hr 1X ONCE 01/21/20 06:00 01/21/20 06:59 DC Carvedilol (Coreg) 25 mg BIDWMEALS 01/19/20 00:30 01/25/20 08:14 25 MG Clonidine HCl (Catapres) 0.1 mg TID 01/19/20 09:00 01/25/20 08:13 0.1 MG Clopidogrel Bisulfate (Plavix) 75 mg DAILYWBKFT 01/19/20 08:00 01/25/20 08:13 75 MG Dexamethasone Sodium Phosphate (Decadron) 4 mg STK-MED ONCE 01/21/20 15:03 01/21/20 15:04 DC Dextrose (Dextrose 50%-Water Syringe) 12.5 gm PRN Q15MIN PRN 01/19/20 14:00 Ephedrine Sulfate (ePHEDrine PF IN SALINE SYRINGE) 50 mg STK-MED ONCE 01/21/20 15:58 01/21/20 15:58 DC Fentanyl Citrate (Fentanyl 2ml Vial) 100 mcg STK-MED ONCE 01/21/20 16:46 01/21/20 16:46 DC Gabapentin (Neurontin) 300 mg BID 01/19/20 09:00 01/25/20 08:18 300 MG Hydralazine HCl (Apresoline) 100 mg TID 01/19/20 00:30 01/25/20 08:15 100 MG Hydromorphone HCl (Dilaudid) 0.5 mg PRN Q10MIN PRN 01/21/20 14:45 01/22/20 14:44 DC Insulin Human Lispro (HumaLOG VIAL for OP,RR ONLY) 0-10 units PRN Q1HR PRN 01/21/20 15:15 01/22/20 15:14 DC Insulin Human Lispro (HumaLOG) 0-7 UNITS QIDACHS 01/21/20 23:45 01/23/20 21:00 3 UNITS Isosorbide Mononitrate (Imdur) 60 mg DAILY 01/19/20 09:00 01/25/20 08:22 60 MG Lactobacillus Rhamnosus (Culturelle) 1 cap BID 01/19/20 21:00 01/25/20 08:17 1 CAP Lidocaine HCl (Lidocaine Pf 2% Vial) 5 ml STK-MED ONCE 01/21/20 15:03 01/21/20 15:04 DC Linezolid (Zyvox) 600 mg BID 01/20/20 10:00 01/22/20 16:00 DC 01/22/20 08:38 600 MG Meropenem 1 gm/ Sodium Chloride 100 ml @ 200 mls/hr DAILY 01/19/20 12:00 01/25/20 08:17 200 MLS/HR Morphine Sulfate (Morphine Sulfate) 2 mg PRN Q2HR PRN 01/23/20 11:30 UNV Morphine Sulfate (Ms Contin) 15 mg BID 01/24/20 21:00 01/25/20 08:18 15 MG Multivitamins (Thera M Plus) 1 tab DAILY 01/21/20 17:00 01/25/20 08:18 1 TAB Neomycin/ Polymyxin/ Bacitracin (Triple Antibiotic Ointment) 1 pkt STK-MED ONCE 01/21/20 16:36 01/21/20 16:37 DC Non-Formulary Medication (Ropinirole Hcl ) 0.5 mg HS 01/19/20 21:00 01/18/20 23:11 DC Ondansetron HCl (Zofran) 4 mg STK-MED ONCE 01/21/20 15:03 01/21/20 15:04 DC Oxycodone HCl (OxyCONTIN) 10 mg BID 01/19/20 00:30 01/24/20 11:30 DC 01/24/20 08:39 10 MG Pantoprazole Sodium (Protonix) 40 mg BIDAC 01/19/20 00:30 01/25/20 08:17 40 MG Phenylephrine HCl (PHENYLEPHRINE in 0.9% NACL PF) 1 mg STK-MED ONCE 01/21/20 15:58 01/21/20 15:58 DC Piperacillin Sod/ Tazobactam Sod 2.25 gm/Sodium Chloride 50 ml @ 100 mls/hr Q6HRS 01/19/20 09:30 01/19/20 11:05 DC 01/19/20 10:43 100 MLS/HR Piperacillin Sod/ Tazobactam Sod 3.375 gm/Sodium Chloride 50 ml @ 100 mls/hr Q6HRS 01/19/20 12:00 UNV Prochlorperazine Edisylate (Compazine) 5 mg PACU PRN PRN 01/21/20 14:45 01/22/20 14:44 DC Propofol (Diprivan) 200 mg STK-MED ONCE 01/21/20 15:03 01/21/20 15:04 DC Ringer's Solution 1,000 ml @ 30 mls/hr Q24H 01/21/20 14:43 01/22/20 02:42 DC Ropinirole HCl (Requip) 0.5 mg HS 01/19/20 00:30 01/24/20 21:52 0.5 MG Sodium Chloride 1,000 ml @ 75 mls/hr [id number] 01/19/20 15:00 01/25/20 01:56 75 MLS/HR Temazepam (Restoril) 30 mg QHS 01/19/20 00:30 01/24/20 21:52 30 MG Trazodone HCl (Desyrel) 50 mg QHS 01/19/20 00:30 01/24/20 21:53 50 MG Vancomycin HCl (Vanco Per Pharmacy) 1 each PRN DAILY PRN 01/18/20 14:45 01/19/20 11:05 DC 01/18/20 18:07 1 EACH Vancomycin HCl 2 gm/Sodium Chloride 500 ml @ 250 mls/hr 1X ONCE 01/18/20 15:00 01/18/20 16:59 DC 01/18/20 15:07 250 MLS/HR Labs: Lab Laboratory Tests Test 01/24/20 11:59 01/24/20 16:50 01/24/20 20:22 01/25/20 04:18 Glucose (Fingerstick) 148 mg/dL (70-99) 118 mg/dL (70-99) 128 mg/dL (70-99) White Blood Count 11.1 x10^3/uL (4.0-11.0) Red Blood Count 3.38 x10^6/uL (4.30-5.70) Hemoglobin 9.3 g/dL (13.0-17.5) Hematocrit 28.7 % (39.0-53.0) Mean Corpuscular Volume 85 fL (79-100) Mean Corpuscular Hemoglobin 27 pg (25-35) Mean Corpuscular Hemoglobin Concent 32 g/dL (31-37) Red Cell Distribution Width 15.3 % (11.5-14.5) Platelet Count 322 x10^3/uL (140-400) Neutrophils (%) (Auto) 78 % (31-73) Lymphocytes (%) (Auto) 9 % (24-48) Monocytes (%) (Auto) 8 % (0-9) Eosinophils (%) (Auto) 4 % (0-3) Basophils (%) (Auto) 1 % (0-3) Neutrophils # (Auto) 8.6 x10^3/uL (1.8-7.7) Lymphocytes # (Auto) 1.0 x10^3/uL (1.0-4.8) Monocytes # (Auto) 0.9 x10^3/uL (0.0-1.1) Eosinophils # (Auto) 0.5 x10^3/uL (0.0-0.7) Basophils # (Auto) 0.1 x10^3/uL (0.0-0.2) Segmented Neutrophils % 70 % (35-66) Band Neutrophils % 5 % (0-9) Lymphocytes % 11 % (24-48) Monocytes % 8 % (0-10) Eosinophils % 6 % (0-5) Platelet Estimate Adequate (ADEQUATE) Anisocytosis Slight Ovalocytes Occ Sodium Level 136 mmol/L (136-145) Potassium Level 5.5 mmol/L (3.5-5.1) Chloride Level 106 mmol/L (98-107) Carbon Dioxide Level 22 mmol/L (21-32) Anion Gap 8 (6-14) Blood Urea Nitrogen 60 mg/dL (8-26) Creatinine 2.6 mg/dL (0.7-1.3) Estimated GFR (Cockcroft-Gault) 25.9 Glucose Level 155 mg/dL (70-99) Calcium Level 8.4 mg/dL (8.5-10.1) Test 01/25/20 08:00 Glucose (Fingerstick) 109 mg/dL (70-99) Objective: Assessment: Left big toe chronic ulcer with bone scan positive for osteomyelitis. s/p amputation, closed on 12/[address] Cheema. Wound dehiscence with purulent drainage and cellulitis of the foot, cults MSSA jan 21 s/p Left first toe amputation including the metatarsal bone with wound;closed Right big toe ulcer, superficial. Bone scan is positive for osteomyelitis, but there is no clinical evidence of chronic or deep wound on to the right big toe. s/p debridement of necrotic skin & subcutaneous tissue on 12/30. Healing well Peripheral arterial disease. Coronary artery disease. Diabetes. Hypertension. Noncompliance. Diarrhea Plan: Plan of Care DC meropenem Keflex Probiotics Continue local care Follow-up with ID clinic if needed Discussed with nursing staff AURELIA SRIVASTAVA MD Jan 25, 2020 09:10
--- NOTE | 2020-01-25 09:31 | PDOC ---
DATE OF SERVICE DATE: 01/25/20 TIME: 09:31 SUBJECTIVE ROS No complaints OBJECTIVE Vital Signs Vital Signs Date Time Temp Pulse Resp B/P (MAP) Pulse Ox O2 Delivery O2 Flow Rate FiO2 01/25/20 08:22 85 146/77 01/25/20 08:18 97 Room Air 10.0 01/25/20 07:34 99.1 19 99.1 I & 0 Intake and Output 01/25/20 07:00 Intake Total 3715 ml Output Total 0 ml Balance 3715 ml Intake Oral 3715 ml Output Urine Total 0 ml # Voids 2 PHYSICAL EXAM Physical Exam GENERAL: Alert and oriented gentleman, not in distress. HEENT: NAD. NECK: Supple. No JVP, no lymphadenopathy. LUNGS: Clear. HEART: S1, S2 regular. ABDOMEN: Benign. EXTREMITIES: Postsurgical dressing not open NEUROLOGIC: The patient is alert, awake and appropriate. No focal neurologic deficit. DIAGNOSIS/ASSESSMENT Assessment & Plan CKD stage 3 - Suspect sec to HTN and CHF Baseline 2.4-3 , Currently at baseline Has 1 st OP appt at our office on 02/03 with ORCHESTRATOR HyperKalemia- mild .monitor HypoNatremia - resolved , mild Hx of LEATHA recently with Cr peaked at 5.2 Unremarkable US and UA in 2019 , CT scan at [facility] on 12/26- Unremarkable Kidneys Past LEATHA - at [facility] requiring HD x 2 Hospitalized at [facility] Jan 2019 with BUN/Cr 130/ 6.5, renal function improved with Cr in 2's He still doesn't see Nephrology as OP despite recommendations Left first toe ulcer status post amputation 01/21/2020 History of osteomyelitis status post amputation Recent Hx of osteomyelitis Chronic pain syndrome chronic opioid and benzo use Cardiomyopathy: EF 30-35% in 2019 HTN: BP high suspect due to Chronic Non compliance DM2 : per PCP CAD: PCI/BMS to LAD/RCA, clinically stable. Anemia- Hgb stable, No indication for CELENA Chronic Noncompliance with meds, appointments COMMENT/RELEVANT DATA Meds Current Medications Medications (Trade) Dose Ordered Sig/Jerri Start Time Stop Time Status Last Admin Dose Admin Acetaminophen (Tylenol) 1,000 mg 1X ONCE 01/18/20 15:15 01/18/20 15:18 DC 01/18/20 15:28 1,000 MG Acetaminophen/ Hydrocodone Bitart (Lortab 10/325) 1 tab PRN Q4HRS PRN 01/18/20 23:15 01/25/20 01:56 1 TAB Amlodipine Besylate (Norvasc) 10 mg DAILY 01/19/20 09:00 01/25/20 08:14 10 MG Ascorbic Acid (Vitamin C) 500 mg DAILY 01/21/20 17:00 01/25/20 08:15 500 MG Aspirin (Aspirin Chewable) 81 mg DAILYWBKFT 01/19/20 08:00 01/25/20 08:13 81 MG Atorvastatin Calcium (Lipitor) 40 mg QHS 01/19/20 21:00 01/24/20 21:52 40 MG Bacitracin 04483 unit/Sodium Chloride 500 ml @ 500 mls/hr 1X ONCE 01/21/20 06:00 01/21/20 06:59 DC Carvedilol (Coreg) 25 mg BIDWMEALS 01/19/20 00:30 01/25/20 08:14 25 MG Clonidine HCl (Catapres) 0.1 mg TID 01/19/20 09:00 01/25/20 08:13 0.1 MG Clopidogrel Bisulfate (Plavix) 75 mg DAILYWBKFT 01/19/20 08:00 01/25/20 08:13 75 MG Dexamethasone Sodium Phosphate (Decadron) 4 mg STK-MED ONCE 01/21/20 15:03 01/21/20 15:04 DC Dextrose (Dextrose 50%-Water Syringe) 12.5 gm PRN Q15MIN PRN 01/19/20 14:00 Ephedrine Sulfate (ePHEDrine PF IN SALINE SYRINGE) 50 mg STK-MED ONCE 01/21/20 15:58 01/21/20 15:58 DC Fentanyl Citrate (Fentanyl 2ml Vial) 100 mcg STK-MED ONCE 01/21/20 16:46 01/21/20 16:46 DC Gabapentin (Neurontin) 300 mg BID 01/19/20 09:00 01/25/20 08:18 300 MG Hydralazine HCl (Apresoline) 100 mg TID 01/19/20 00:30 01/25/20 08:15 100 MG Hydromorphone HCl (Dilaudid) 0.5 mg PRN Q10MIN PRN 01/21/20 14:45 01/22/20 14:44 DC Insulin Human Lispro (HumaLOG VIAL for OP,RR ONLY) 0-10 units PRN Q1HR PRN 01/21/20 15:15 01/22/20 15:14 DC Insulin Human Lispro (HumaLOG) 0-7 UNITS QIDACHS 01/21/20 23:45 01/23/20 21:00 3 UNITS Isosorbide Mononitrate (Imdur) 60 mg DAILY 01/19/20 09:00 01/25/20 08:22 60 MG Lactobacillus Rhamnosus (Culturelle) 1 cap BID 01/19/20 21:00 01/25/20 08:17 1 CAP Lidocaine HCl (Lidocaine Pf 2% Vial) 5 ml STK-MED ONCE 01/21/20 15:03 01/21/20 15:04 DC Linezolid (Zyvox) 600 mg BID 01/20/20 10:00 01/22/20 16:00 DC 01/22/20 08:38 600 MG Meropenem 1 gm/ Sodium Chloride 100 ml @ 200 mls/hr DAILY 01/19/20 12:00 01/25/20 08:17 200 MLS/HR Morphine Sulfate (Morphine Sulfate) 2 mg PRN Q2HR PRN 01/23/20 11:30 UNV Morphine Sulfate (Ms Contin) 15 mg BID 01/24/20 21:00 01/25/20 08:18 15 MG Multivitamins (Thera M Plus) 1 tab DAILY 01/21/20 17:00 01/25/20 08:18 1 TAB Neomycin/ Polymyxin/ Bacitracin (Triple Antibiotic Ointment) 1 pkt STK-MED ONCE 01/21/20 16:36 01/21/20 16:37 DC Non-Formulary Medication (Ropinirole Hcl ) 0.5 mg HS 01/19/20 21:00 01/18/20 23:11 DC Ondansetron HCl (Zofran) 4 mg STK-MED ONCE 01/21/20 15:03 01/21/20 15:04 DC Oxycodone HCl (OxyCONTIN) 10 mg BID 01/19/20 00:30 01/24/20 11:30 DC 01/24/20 08:39 10 MG Pantoprazole Sodium (Protonix) 40 mg BIDAC 01/19/20 00:30 01/25/20 08:17 40 MG Phenylephrine HCl (PHENYLEPHRINE in 0.9% NACL PF) 1 mg STK-MED ONCE 01/21/20 15:58 01/21/20 15:58 DC Piperacillin Sod/ Tazobactam Sod 2.25 gm/Sodium Chloride 50 ml @ 100 mls/hr Q6HRS 01/19/20 09:30 01/19/20 11:05 DC 01/19/20 10:43 100 MLS/HR Piperacillin Sod/ Tazobactam Sod 3.375 gm/Sodium Chloride 50 ml @ 100 mls/hr Q6HRS 01/19/20 12:00 UNV Prochlorperazine Edisylate (Compazine) 5 mg PACU PRN PRN 01/21/20 14:45 01/22/20 14:44 DC Propofol (Diprivan) 200 mg STK-MED ONCE 01/21/20 15:03 01/21/20 15:04 DC Ringer's Solution 1,000 ml @ 30 mls/hr Q24H 01/21/20 14:43 01/22/20 02:42 DC Ropinirole HCl (Requip) 0.5 mg HS 01/19/20 00:30 01/24/20 21:52 0.5 MG Sodium Chloride 1,000 ml @ 75 mls/hr [id number] 01/19/20 15:00 01/25/20 01:56 75 MLS/HR Temazepam (Restoril) 30 mg QHS 01/19/20 00:30 01/24/20 21:52 30 MG Trazodone HCl (Desyrel) 50 mg QHS 01/19/20 00:30 01/24/20 21:53 50 MG Vancomycin HCl (Vanco Per Pharmacy) 1 each PRN DAILY PRN 01/18/20 14:45 01/19/20 11:05 DC 01/18/20 18:07 1 EACH Vancomycin HCl 2 gm/Sodium Chloride 500 ml @ 250 mls/hr 1X ONCE 01/18/20 15:00 01/18/20 16:59 DC 01/18/20 15:07 250 MLS/HR Lab Laboratory Tests Test 01/24/20 11:59 01/24/20 16:50 01/24/20 20:22 01/25/20 04:18 Glucose (Fingerstick) 148 mg/dL (70-99) 118 mg/dL (70-99) 128 mg/dL (70-99) White Blood Count 11.1 x10^3/uL (4.0-11.0) Red Blood Count 3.38 x10^6/uL (4.30-5.70) Hemoglobin 9.3 g/dL (13.0-17.5) Hematocrit 28.7 % (39.0-53.0) Mean Corpuscular Volume 85 fL (79-100) Mean Corpuscular Hemoglobin 27 pg (25-35) Mean Corpuscular Hemoglobin Concent 32 g/dL (31-37) Red Cell Distribution Width 15.3 % (11.5-14.5) Platelet Count 322 x10^3/uL (140-400) Neutrophils (%) (Auto) 78 % (31-73) Lymphocytes (%) (Auto) 9 % (24-48) Monocytes (%) (Auto) 8 % (0-9) Eosinophils (%) (Auto) 4 % (0-3) Basophils (%) (Auto) 1 % (0-3) Neutrophils # (Auto) 8.6 x10^3/uL (1.8-7.7) Lymphocytes # (Auto) 1.0 x10^3/uL (1.0-4.8) Monocytes # (Auto) 0.9 x10^3/uL (0.0-1.1) Eosinophils # (Auto) 0.5 x10^3/uL (0.0-0.7) Basophils # (Auto) 0.1 x10^3/uL (0.0-0.2) Segmented Neutrophils % 70 % (35-66) Band Neutrophils % 5 % (0-9) Lymphocytes % 11 % (24-48) Monocytes % 8 % (0-10) Eosinophils % 6 % (0-5) Platelet Estimate Adequate (ADEQUATE) Anisocytosis Slight Ovalocytes Occ Sodium Level 136 mmol/L (136-145) Potassium Level 5.5 mmol/L (3.5-5.1) Chloride Level 106 mmol/L (98-107) Carbon Dioxide Level 22 mmol/L (21-32) Anion Gap 8 (6-14) Blood Urea Nitrogen 60 mg/dL (8-26) Creatinine 2.6 mg/dL (0.7-1.3) Estimated GFR (Cockcroft-Gault) 25.9 Glucose Level 155 mg/dL (70-99) Calcium Level 8.4 mg/dL (8.5-10.1) Test 01/25/20 08:00 Glucose (Fingerstick) 109 mg/dL (70-99) Results All relevant outside records, renal labs, imaging studies, telemetry/EKG's were reviewed. Justicifation of Admission Dx: Justifications for Admission: Justification of Admission Dx: Yes Acute Renal Failure: Serum Cr > 4mg/dL Cellulitis: Cellulitis MARTIN ESTEVEZ MD Jan 25, 2020 09:31
[2020-01-25] MEDS ORDERED: MORP-15 PO (10:42)
[2020-01-25] MEDS ORDERED: HYDR-2769 PO (10:42)
[2020-01-25] MEDS ORDERED: CEPH250C PO (10:42)
--- NOTE | 2020-01-25 10:46 | PDOC ---
[facility] [facility] PROGRESS NOTE Date of Service DOS: DATE: 01/25/20 TIME: 10:44 Chief Complaint Chief Complaint Left first toe ulcer status post amputation 01/21/2020 History of osteomyelitis status post amputation Right toe ulcer - superficial Peripheral arterial disease. Coronary artery disease. Diabetes. Hypertension. Medical nonadherence CKD, baseline Hyponatremia Hyperkalemia Continue IV meropenem Continue IV morphine and Jefferson PRN for pain control Pending wound and blood cultures Appreciate infectious disease recommendations Appreciate Ortho recommendations Heparin for DVT prophylaxis ADA diet Full code Discussed with RN and SW Dispo pending further Ortho evaluation and blood culture sensitivities Surrogate decision maker is self History of Present Illness History of Present Illness Mr Dejesus is 54-year-old male with severe peripheral vascular disease and bilateral foot ulcers where the toes have become infected and has history of osteomyelitis. Patient recently had surgery with Dr. Cheema on December 30. Wound care nurse has been concerned with swelling has been getting worse with purulent drainage and erythema. Patient has been seen by orthopedics and vascular surgery. 01/18:No acute events since admission. Patient seen and examined bedside. Patient is tolerating diet. Pain is well controlled. Patient's chart, labs, images were reviewed and discussed with RN 01/19: No acute events overnight. Patient seen and examined bedside. Patient is tolerating diet. IV morphine added for more pain control. Patient has chronic pain that is managed by outpatient opioid medications. Patient's chart, labs, images were reviewed and discussed with RN 01/20: To OR: Left first toe amputation including the metatarsal bone with wound debridement and washout 01/21: No acute events overnight. Patient's pain is well controlled. Patient is tolerating diet. Patient's chart, labs, images were reviewed and discussed with RN 01/22: No acute events overnight. Patient's pain is moderately controlled. Will increase intervals of morphine and Jefferson coverage. Wound evaluated by Ortho and no recommendations at the time. 01/23: Afebrile. BUN 70 creatinine 3.1. Tolerating meropenem well. Seen ambulating in the room. He is complaining that he knows that OxyContin will not be covered outside the hospital. Does not think his pain will be adequately controlled on discharge Pain much better controlled on MS Contin low-dose oxycodone 10 mg, he does have an active prescription that will run out in 3 days, and he does have a prescriber that can continue the prescription. Discussed with ID to transition from meropenem to Keflex for 14 days on discharge. He will have outpatient follow-up with wound clinic. CR 2.6, BUN 16, improved. Vitals/I&O Vitals/I&O: Vital Signs Date Time Temp Pulse Resp B/P (MAP) Pulse Ox O2 Delivery O2 Flow Rate FiO2 01/25/20 08:22 85 146/77 01/25/20 08:18 97 Room Air 10.0 01/25/20 07:34 99.1 19 99.1 I & O 01/24/20 01/24/20 01/25/20 15:00 23:00 07:00 Intake Total 2475 ml 1000 ml 240 ml Output Total 0 ml Balance 2475 ml 1000 ml 240 ml Physical Exam Physical Exam: GENERAL: Alert and oriented gentleman, not in distress. HEENT: NAD. NECK: Supple. No JVP, no lymphadenopathy. LUNGS: Clear. HEART: S1, S2 regular. ABDOMEN: Benign. EXTREMITIES: Postsurgical dressing not open NEUROLOGIC: The patient is alert, awake and appropriate. No focal neurologic deficit. General: Alert, Oriented X3, Cooperative, No acute distress Heart: Regular rate Lungs: Clear Abdomen: Normal bowel sounds, Soft Extremities: No clubbing, Other (LEFT FOOT ERYTHEMA) Labs Labs: Laboratory Tests Test 01/24/20 11:59 01/24/20 16:50 01/24/20 20:22 01/25/20 04:18 Glucose (Fingerstick) 148 mg/dL (70-99) 118 mg/dL (70-99) 128 mg/dL (70-99) White Blood Count 11.1 x10^3/uL (4.0-11.0) Red Blood Count 3.38 x10^6/uL (4.30-5.70) Hemoglobin 9.3 g/dL (13.0-17.5) Hematocrit 28.7 % (39.0-53.0) Mean Corpuscular Volume 85 fL (79-100) Mean Corpuscular Hemoglobin 27 pg (25-35) Mean Corpuscular Hemoglobin Concent 32 g/dL (31-37) Red Cell Distribution Width 15.3 % (11.5-14.5) Platelet Count 322 x10^3/uL (140-400) Neutrophils (%) (Auto) 78 % (31-73) Lymphocytes (%) (Auto) 9 % (24-48) Monocytes (%) (Auto) 8 % (0-9) Eosinophils (%) (Auto) 4 % (0-3) Basophils (%) (Auto) 1 % (0-3) Neutrophils # (Auto) 8.6 x10^3/uL (1.8-7.7) Lymphocytes # (Auto) 1.0 x10^3/uL (1.0-4.8) Monocytes # (Auto) 0.9 x10^3/uL (0.0-1.1) Eosinophils # (Auto) 0.5 x10^3/uL (0.0-0.7) Basophils # (Auto) 0.1 x10^3/uL (0.0-0.2) Segmented Neutrophils % 70 % (35-66) Band Neutrophils % 5 % (0-9) Lymphocytes % 11 % (24-48) Monocytes % 8 % (0-10) Eosinophils % 6 % (0-5) Platelet Estimate Adequate (ADEQUATE) Anisocytosis Slight Ovalocytes Occ Sodium Level 136 mmol/L (136-145) Potassium Level 5.5 mmol/L (3.5-5.1) Chloride Level 106 mmol/L (98-107) Carbon Dioxide Level 22 mmol/L (21-32) Anion Gap 8 (6-14) Blood Urea Nitrogen 60 mg/dL (8-26) Creatinine 2.6 mg/dL (0.7-1.3) Estimated GFR (Cockcroft-Gault) 25.9 Glucose Level 155 mg/dL (70-99) Calcium Level 8.4 mg/dL (8.5-10.1) Test 01/25/20 08:00 Glucose (Fingerstick) 109 mg/dL (70-99) Assessment and Plan Assessmemt and Plan Problems Medical Problems: (1) Acute on chronic renal insufficiency Status: Acute (2) Cellulitis of left foot Status: Acute Comment Review of Relevant I have reviewed the following items gavin (where applicable) has been applied. Medications: Current Medications Medications (Trade) Dose Ordered Sig/Jerri Route PRN Reason Start Time Stop Time Status Last Admin Dose Admin Morphine Sulfate (Ms Contin) 15 mg BID PO 01/24/20 21:00 01/25/20 08:18 Justifications for Admission Other Justification RIFFEL,CHRISTOPHER S MD Jan 25, 2020 10:46
--- NOTE | 2020-01-25 10:47 | PDOC3 ---
Discharge Summary Visit Information Date of Admission: Jan 18, 2020 Date of Discharge: Jan 25, 2020 Admitting Diagnosis: Cellulitis of left great toe Final Diagnosis Problems Medical Problems: (1) Acute on chronic renal insufficiency Status: Acute (2) Cellulitis of left foot Status: Acute Brief Hospital Course Allergies Allergies Coded Allergies Type Severity Reaction Last Updated Verified No Known Drug Allergies 01/18/20 No Vital Signs Vital Signs Date Time Temp Pulse Resp B/P (MAP) Pulse Ox O2 Delivery O2 Flow Rate FiO2 01/25/20 08:22 85 146/77 01/25/20 08:18 97 Room Air 10.0 01/25/20 07:34 99.1 19 99.1 Lab Results Laboratory Tests Test 01/23/20 11:08 01/23/20 17:04 01/23/20 21:17 01/24/20 05:50 Glucose (Fingerstick) 121 mg/dL (70-99) 179 mg/dL (70-99) 171 mg/dL (70-99) Sodium Level 136 mmol/L (136-145) Potassium Level 5.3 mmol/L (3.5-5.1) Chloride Level 106 mmol/L (98-107) Carbon Dioxide Level 19 mmol/L (21-32) Anion Gap 11 (6-14) Blood Urea Nitrogen 70 mg/dL (8-26) Creatinine 2.8 mg/dL (0.7-1.3) Estimated GFR (Cockcroft-Gault) 23.8 Glucose Level 150 mg/dL (70-99) Calcium Level 8.0 mg/dL (8.5-10.1) Test 01/24/20 11:59 01/24/20 16:50 01/24/20 20:22 01/25/20 04:18 Glucose (Fingerstick) 148 mg/dL (70-99) 118 mg/dL (70-99) 128 mg/dL (70-99) White Blood Count 11.1 x10^3/uL (4.0-11.0) Red Blood Count 3.38 x10^6/uL (4.30-5.70) Hemoglobin 9.3 g/dL (13.0-17.5) Hematocrit 28.7 % (39.0-53.0) Mean Corpuscular Volume 85 fL (79-100) Mean Corpuscular Hemoglobin 27 pg (25-35) Mean Corpuscular Hemoglobin Concent 32 g/dL (31-37) Red Cell Distribution Width 15.3 % (11.5-14.5) Platelet Count 322 x10^3/uL (140-400) Neutrophils (%) (Auto) 78 % (31-73) Lymphocytes (%) (Auto) 9 % (24-48) Monocytes (%) (Auto) 8 % (0-9) Eosinophils (%) (Auto) 4 % (0-3) Basophils (%) (Auto) 1 % (0-3) Neutrophils # (Auto) 8.6 x10^3/uL (1.8-7.7) Lymphocytes # (Auto) 1.0 x10^3/uL (1.0-4.8) Monocytes # (Auto) 0.9 x10^3/uL (0.0-1.1) Eosinophils # (Auto) 0.5 x10^3/uL (0.0-0.7) Basophils # (Auto) 0.1 x10^3/uL (0.0-0.2) Segmented Neutrophils % 70 % (35-66) Band Neutrophils % 5 % (0-9) Lymphocytes % 11 % (24-48) Monocytes % 8 % (0-10) Eosinophils % 6 % (0-5) Platelet Estimate Adequate (ADEQUATE) Anisocytosis Slight Ovalocytes Occ Sodium Level 136 mmol/L (136-145) Potassium Level 5.5 mmol/L (3.5-5.1) Chloride Level 106 mmol/L (98-107) Carbon Dioxide Level 22 mmol/L (21-32) Anion Gap 8 (6-14) Blood Urea Nitrogen 60 mg/dL (8-26) Creatinine 2.6 mg/dL (0.7-1.3) Estimated GFR (Cockcroft-Gault) 25.9 Glucose Level 155 mg/dL (70-99) Calcium Level 8.4 mg/dL (8.5-10.1) Test 01/25/20 08:00 Glucose (Fingerstick) 109 mg/dL (70-99) Laboratory Tests Test 01/24/20 11:59 01/24/20 16:50 01/24/20 20:22 01/25/20 04:18 Glucose (Fingerstick) 148 mg/dL (70-99) 118 mg/dL (70-99) 128 mg/dL (70-99) White Blood Count 11.1 x10^3/uL (4.0-11.0) Red Blood Count 3.38 x10^6/uL (4.30-5.70) Hemoglobin 9.3 g/dL (13.0-17.5) Hematocrit 28.7 % (39.0-53.0) Mean Corpuscular Volume 85 fL (79-100) Mean Corpuscular Hemoglobin 27 pg (25-35) Mean Corpuscular Hemoglobin Concent 32 g/dL (31-37) Red Cell Distribution Width 15.3 % (11.5-14.5) Platelet Count 322 x10^3/uL (140-400) Neutrophils (%) (Auto) 78 % (31-73) Lymphocytes (%) (Auto) 9 % (24-48) Monocytes (%) (Auto) 8 % (0-9) Eosinophils (%) (Auto) 4 % (0-3) Basophils (%) (Auto) 1 % (0-3) Neutrophils # (Auto) 8.6 x10^3/uL (1.8-7.7) Lymphocytes # (Auto) 1.0 x10^3/uL (1.0-4.8) Monocytes # (Auto) 0.9 x10^3/uL (0.0-1.1) Eosinophils # (Auto) 0.5 x10^3/uL (0.0-0.7) Basophils # (Auto) 0.1 x10^3/uL (0.0-0.2) Segmented Neutrophils % 70 % (35-66) Band Neutrophils % 5 % (0-9) Lymphocytes % 11 % (24-48) Monocytes % 8 % (0-10) Eosinophils % 6 % (0-5) Platelet Estimate Adequate (ADEQUATE) Anisocytosis Slight Ovalocytes Occ Sodium Level 136 mmol/L (136-145) Potassium Level 5.5 mmol/L (3.5-5.1) Chloride Level 106 mmol/L (98-107) Carbon Dioxide Level 22 mmol/L (21-32) Anion Gap 8 (6-14) Blood Urea Nitrogen 60 mg/dL (8-26) Creatinine 2.6 mg/dL (0.7-1.3) Estimated GFR (Cockcroft-Gault) 25.9 Glucose Level 155 mg/dL (70-99) Calcium Level 8.4 mg/dL (8.5-10.1) Test 01/25/20 08:00 Glucose (Fingerstick) 109 mg/dL (70-99) Brief Hospital Course Mr Dejesus is 54-year-old male with severe peripheral vascular disease and bilateral foot ulcers where the toes have become infected and has history of osteomyelitis. Patient recently had surgery with Dr. Cheema on December 30. Wound care nurse has been concerned with swelling has been getting worse with purulent drainage and erythema. Patient has been seen by orthopedics and vascular surgery. 01/18:No acute events since admission. Patient seen and examined bedside. Patient is tolerating diet. Pain is well controlled. Patient's chart, labs, images were reviewed and discussed with RN 01/19: No acute events overnight. Patient seen and examined bedside. Patient is tolerating diet. IV morphine added for more pain control. Patient has chronic pain that is managed by outpatient opioid medications. Patient's chart, labs, images were reviewed and discussed with RN 01/20: To OR: Left first toe amputation including the metatarsal bone with wound debridement and washout 01/21: No acute events overnight. Patient's pain is well controlled. Patient is tolerating diet. Patient's chart, labs, images were reviewed and discussed with RN 01/22: No acute events overnight. Patient's pain is moderately controlled. Will increase intervals of morphine and [place] coverage. Wound evaluated by Ortho and no recommendations at the time. 01/23: Afebrile. BUN 70 creatinine 3.1. Tolerating meropenem well. Seen ambulating in the room. He is complaining that he knows that OxyContin will not be covered outside the hospital. Does not think his pain will be adequately controlled on discharge Pain much better controlled on MS Contin low-dose oxycodone 10 mg, he does have an active prescription that will run out in 3 days, and he does have a prescriber that can continue the prescription. Discussed with ID to transition from meropenem to Keflex for 14 days on discharge. He will have outpatient follow-up with wound clinic. CR 2.6, BUN 16, improved. Consults: Vascular surgery, ID Problem list: Left first toe ulcer status post amputation 01/21/2020 History of osteomyelitis status post amputation Right toe ulcer - superficial Peripheral arterial disease. Coronary artery disease. Diabetes. Hypertension. Medical nonadherence CKD, baseline Hyponatremia Hyperkalemia Greater than 30 minutes spent on d/c home Discharge Information Condition at Discharge: Improved Follow Up: Weeks (1) Disposition/Orders: D/C to Home Scheduled Amlodipine Besylate (Amlodipine Besylate) 10 Mg Tablet, 10 MG PO DAILY for htn for 30 Days, #30 Prescribed by: OSMAR QUIJANO on 01/06/201210 Last Action: Continued on 01/18/202301 by JAYA HUGGINS Aspirin (Children's Aspirin) 81 Mg Tab.chew, 1 TAB PO DAILY for HTN for 30 Days, #30 Ref 0 (Reported) Entered as Reported by: DHIRAJ CROUCH on 12/28/191133 Last Action: Continued on 01/18/202301 by JAYA HUGGINS Atorvastatin Calcium (Atorvastatin Calcium) 40 Mg Tablet, 40 MG PO QHS for 30 Days, #30 Prescribed by: VERITO TINAJERO on 03/19/18 1223 Last Action: Continued on 01/18/202301 by JAYA HUGGINS Carvedilol (Coreg) 25 Mg Tablet, 25 MG PO BIDWMEALS for CARDIAC, (Reported) Entered as Reported by: ANNE-MARIE RAMAN on 12/27/192019 Last Action: Converted on 01/18/202301 by JAYA HUGGINS Cephalexin (Cephalexin) 250 Mg Capsule, 500 MG PO QID for Cellulitis for 14 D ays, #112 Prescribed by: PUMA ROSS MD on 01/25/20 1042 Clonidine Hcl (Clonidine Hcl) 0.1 Mg Tablet, 1 TAB PO TID for htn for 30 Days, #90 Ref 2 Prescribed by: OSMAR QUIJANO on 01/06/201210 Last Action: Continued on 01/18/202301 by JAYA HUGGINS Clopidogrel Bisulfate (Plavix) 75 Mg Tablet, 75 MG PO DAILYWBKFT, #30 Ref 2 Prescribed by: ROSEANNE RAHMAN on 03/04/15 1505 Last Action: Continued on 01/18/202301 by JAYA HUGGINS Gabapentin (Gabapentin ) 300 Mg Capsule, 300 MG PO BID for NEUROGENIC PAIN, (Reported) Entered as Reported by: DHIRAJ CROUCH on 12/28/191133 Last Action: Continued on 01/18/202301 by JAYA HUGGINS Hydralazine Hcl (Hydralazine Hcl) 100 Mg Tablet, 1 TAB PO TID for htn, #90 Ref 5 Prescribed by: OSMAR QUIJANO on 01/06/201210 Last Action: Converted on 01/18/202301 by JAYA HUGGINS Isosorbide Mononitrate (Isosorbide Mononitrate Er) 60 Mg Tab.er.24h, 1 TAB PO DAILY for htn, #30 Ref 5 Prescribed by: OSMAR QUIJANO on 01/06/201210 Last Action: Converted on 01/18/202301 by JAYA HUGGINS Morphine Sulfate (Morphine Sulfate Er) 15 Mg Tablet.er, 15 MG PO BID for Osteomyelitis for 6 Days, #12 Prescribed by: PUMA ROSS MD on 01/25/20 1043 Pantoprazole Sodium (Protonix) 20 Mg Tablet.dr, 2 TAB PO BID for GERD, #30 (Reported) Entered as Reported by: KAMILA HARMAN on 02/11/191840 Last Action: Converted on 01/18/202301 by JAYA HUGGINS Ropinirole Hcl (Ropinirole Hcl) 0.5 Mg Tablet, 0.5 MG PO HS for rls, (Reported) Entered as Reported by: ANNE-MARIE RAMAN on 12/27/191953 Last Action: Converted on 01/18/202301 by JAYA HUGGINS Temazepam (Temazepam) 30 Mg Capsule, 1 CAP PO QHS for insomnia, #30 Ref 1 (Reported) Entered as Reported by: DAR KNIGHT on 02/11/193 Last Action: Continued on 01/18/202301 by JAYA HUGGINS Trazodone Hcl (Trazodone Hcl) 50 Mg Tablet, 1 TAB PO QHS for sleep, #30 Ref 1 (Reported) Entered as Reported by: DHIRAJ CROUCH on 12/28/19 1134 Last Action: Continued on 01/18/202301 by JAYA HUGGINS Scheduled PRN Hydrocodone Bit/Acetaminophen (Hydrocodone-Apap 10-325 ) 1 Tab Tablet, 1 TAB PO PRN Q4HRS PRN for PAIN for 6 Days, #36 Ref 0 Prescribed by: PUMA ROSS MD on 01/25/20 1043 Discontinued Medications Oxycodone HCl (Oxycontin) 10 Mg Tab.er.12h, 1 TAB PO BID for pain MDD 2 Tablet(s) for 30 Days, #60 Ref 0 Prescribed by: OSMAR QUIJANO on 01/06/20 1211 Last Action: Continued on 01/18/202301 by JAYA HUGGINS Justicifation of Admission Dx: Justifications for Admission: Justification of Admission Dx: Yes Acute Renal Failure: Serum Cr > 4mg/dL Cellulitis: Cellulitis PUMA ROSS MD Jan 25, 2020 10:47
[2020-01-25 11:20] VITALS: BP 155/81
[2020-01-25] MEDS: CEPHALEXIN 250 MG CAPSULE. PO SCH ×2 (12:59→17:01)
[2020-01-25 15:19] VITALS: BP 145/79
--- NOTE | 2020-01-25 16:32 | NUR ---
SW following. Spoke with RN and reviewed chart. Pt will discharge on oral abx so home infusion is not needed. Notified Elvis with [employer] to cancel home infusion setup. Pt is not home-bound and does not meet criteria for HH. Pt will follow up with out-patient wound care. RN notified. Pt to discharge home today. No further SW needs.
[2020-01-25 17:03] VITALS: BP 145/79
--- NOTE | 2020-01-25 17:40 | NUR ---
Pt received education by nurse, verbalized understanding. Pt escorted to private vehicle with personal possessions by nursing staff. No concerns at this time.
--- NOTE | 2020-01-26 16:06 | PATHOLOGY ---
[facility] Accession Number: [id number] . 01 Material submitted: . toe - LEFT FIRST METATARSAL. Modifiers: left, first . 01 Clinical history: . LEFT FOOT CELLULITIS . 02 Diagnosis: Segments (2) of bone and attached soft tissue, left first toe and distal metatarsal bone ray amputation: - Status post left first toe partial amputation. - Acute osteomyelitis and acute cellulitis of toe. - Proximal amputation margin of first metatarsal bone negative for inflammation. (JPM:leonidas; 01/26/2020) QMS 01/26/2020 0916 Local . 02 Electronically signed: . Sampson Putnam MD, Pathologist NPI- [id number] . 01 Gross description: . The specimen is received in formalin, labeled "Porfirio Dejesus, left first metatarsal" and consists of 2 segments of bone with attached soft tissue measuring 3.1 x 2.8 x 1.3 cm and 4.4 x 2.6 x 2.1 cm. The larger segment shows a flat smooth transected margin (inked black). [employer] sections from each are submitted as follows: . A1: Smaller segment following decalcification A2-A3: Larger segment following decalcification (SDY; 01/24/2020) SYU/SYU 01/24/2020 1635 Local . 02 Pathologist provided ICD-10: M86.172, L03.032 . 02 CPT . 311558, 870779 Specimen Comment: A courtesy copy of this report has been sent to [phone], [phone] Specimen Comment: [id number], , Specimen Comment: Report sent to ,DR ZHAO.DR MARY / DR LEMUS Performed at: 01 [facility] [address], [place], [place] [id number] MD Bebeto Camara MD Phone: [phone] Performed at: 02 [facility] [address] [place], [place] [id number] MD Sampson Putnam MD Phone: [phone]
== END 2020-01-25 17:30 | disposition home or self-care (01) | DRG 579 ==
LOC: ER 12:57 → 5 NORTH 18:36 → ED HOLD 18:36 → 5 NORTH 22:20
PROVIDERS: ADMIT Internal Medicine; ATTEND Internal Medicine
PROC: 0Y6Q0Z0 Detachment at Left 1st Toe, Complete, Open Approach (ICD-10-PCS; principal; 2020-01-21 15:45)
DX: L03.116 Cellulitis of left lower limb (principal); N17.0 Acute kidney failure with tubular necrosis; T81.30XA Disruption of wound, unspecified, initial encounter; E87.1 Hypo-osmolality and hyponatremia; I13.0 Hypertensive heart and chronic kidney disease with heart failure and stage 1 through stage 4 chronic kidney disease, or unspecified chronic kidney disease; I25.110 Atherosclerotic heart disease of native coronary artery with unstable angina pectoris; I42.9 Cardiomyopathy, unspecified; I50.22 Chronic systolic (congestive) heart failure; M86.8X8 Other osteomyelitis, other site; N18.4 Chronic kidney disease, stage 4 (severe); E11.69 Type 2 diabetes mellitus with other specified complication; E11.51 Type 2 diabetes mellitus with diabetic peripheral angiopathy without gangrene; E11.621 Type 2 diabetes mellitus with foot ulcer; D63.1 Anemia in chronic kidney disease; E11.22 Type 2 diabetes mellitus with diabetic chronic kidney disease; E78.5 Hyperlipidemia, unspecified; E87.5 Hyperkalemia; G25.81 Restless legs syndrome; G89.29 Other chronic pain; I16.0 Hypertensive urgency; L03.032 Cellulitis of left toe; L97.519 Non-pressure chronic ulcer of other part of right foot with unspecified severity; L97.529 Non-pressure chronic ulcer of other part of left foot with unspecified severity; Z79.02 Long term (current) use of antithrombotics/antiplatelets; Z82.49 Family history of ischemic heart disease and other diseases of the circulatory system; Z86.73 Personal history of transient ischemic attack (TIA), and cerebral infarction without residual deficits; Z91.19 Patient's noncompliance with other medical treatment and regimen; Z95.5 Presence of coronary angioplasty implant and graft; F32.9 Major depressive disorder, single episode, unspecified; K21.9 Gastro-esophageal reflux disease without esophagitis; M19.90 Unspecified osteoarthritis, unspecified site; Z79.4 Long term (current) use of insulin; Z20.828 Contact with and (suspected) exposure to other viral communicable diseases; B95.61 Methicillin susceptible Staphylococcus aureus infection as the cause of diseases classified elsewhere
CPT/HCPCS: 36415; 73630; 73660; 80048; 80053; 82565; 82962; 83605; 83735; 84100; 85007; 85025; 87040; 87071; 87075; 87077; 87186; 87426; 88305; 88311; 96365; 96366; 99285; A7015; J1100; J1815; J2185; J2270; J2370; J2405; J2543; J2704; J3010; J3370; J7030; J7040; J7120; A4461; G0378; U0003-CS

== ENCOUNTER 2020-02-21 00:14 | Inpatient (IN) | payer MEDICAID ==
[~2020-02-21] VITALS: Ht 175.3 cm; Wt 84.1 kg
[2020-02-21] VITALS (8 sets, daily range): BP systolic 107–226; BP diastolic 68–113
[~2020-02-21 00:14] MED LIST changes: +CEPH250C PO; +MORP-15 PO
[2020-02-21] MEDS ORDERED: CYCL10TA2 PO (00:40)
--- NOTE | 2020-02-21 00:53 | NUR ---
Pt arrived to room 258 per ems cart, pt ambulated to bed, vs obtained pt bp 226/113 pt alert and oriented x4 pt with c/o pain to mid chest area stating he's been in pain for a couple days now and unable to take medications due to nausea and vomiting. Poc explained to pt call light placed in reach will place call to Dr. Dougherty for admit orders and will resume care and continue to monitor pt.
[2020-02-21] MEDS: ONDANSETRON PF 4 MG/2 ML VIAL. IVP PRN ×3 (01:25→12:30)
[2020-02-21] MEDS: ENALAPRILAT 1.25 MG/ML VIAL. IVP PRN ×2 (01:26→09:05)
[2020-02-21] MEDS: MORPHINE SULFATE 4 MG/ML VIAL. IV PRN ×5 (01:26→21:21)
--- NOTE | 2020-02-21 02:56 | NUR ---
Pt bladder scanned, pt has 616 ml in bladder pt up at side of bed to void.
[2020-02-21 09:25] LABS: BASO # 0.1 x10^3/uL (0.0-0.2); BASO % 1 % (0-3); EOS # 0.2 x10^3/uL (0.0-0.7); EOS % 4 % (0-3); HEMATOCRIT 36.4 % (39.0-53.0); LYMPH # 0.9 x10^3/uL (1.0-4.8); LYMPH % 15 % (24-48); MEAN CORPUSCULAR HEMOGLOBIN 27 pg (25-35); MEAN CORPUSCULAR HGB CONC 33 g/dL (31-37); MEAN CORPUSCULAR VOLUME 83 fL (79-100); MONO # 0.5 x10^3/uL (0.0-1.1); MONO % 8 % (0-9); NEUT # 4.4 x10^3/uL (1.8-7.7); NEUT % 72 % (31-73); PLATELET COUNT 226 x10^3/uL (140-400); RED BLOOD COUNT 4.41 x10^6/uL (4.30-5.70); RED CELL DISTRIBUTION WIDTH 16.6 % (11.5-14.5); WHITE BLOOD COUNT 6.2 x10^3/uL (4.0-11.0)
[2020-02-21 09:45] LABS: ALBUMIN 2.9 g/dL (3.4-5.0); ALBUMIN/GLOBULIN RATIO 0.6 (1.0-1.7); CALCIUM 9.3 mg/dL (8.5-10.1); CHOLESTEROL/HDL RATIO 6.3; CREATININE 3.7 mg/dL (0.7-1.3); GFR 17.3; MAGNESIUM 2.8 mg/dL (1.8-2.4); POTASSIUM 4.7 mmol/L (3.5-5.1); TOTAL BILIRUBIN 0.4 mg/dL (0.2-1.0); TOTAL PROTEIN 7.5 g/dL (6.4-8.2)
--- NOTE | 2020-02-21 09:48 | NUR ---
Pt just voided 300ml into urinal. He was bladder scanned and has post residual of zero.
[2020-02-21] MEDS ORDERED: IV NORMAL SALINE 1000ML BAG 1,000 ML IV ONE (10:30)
--- NOTE | 2020-02-21 10:55 | PDOC2 ---
CONSULT Date of Consult Date of Consult DATE: 02/21/20 TIME: 10:46 Reason for Consult Reason for Consult: LEATHA on CKD Identification/Chief Complaint Chief Complaint Currently states feeling tired Source Source: Chart review, Patient History of Present Illness Reason for Visit: Pt is a 54-year-old male patient who presented to the Emergency Room of [facility] complaining of chest pain that is substernal. He also complained of nausea, vomiting and shortness of breath. He is known to have history of diabetes, hypertension, stage 3 renal failure, congestive heart failure, coronary artery disease He has been hospitalized at [facility] in past as well. He reports he has been Vomiting for past few days and has been able to take his BP meds (Hx of Non complaince in the past ) He states he has been taking Ibuprofen 6-8 tabs/day for last few days . Denies F/C, No Cough. Denies abdominal pain or diarrhea. Denies any Urinary complaints Past Medical History Cardiovascular: CAD, CHF, HTN, Hyperlipidemia, Other Pulmonary: Other CENTRAL NERVOUS SYSTEM: Other GI: GERD Heme/Onc: Anemia NOS Psych: Depression Musculoskeletal: Other Renal/: Chronic renal insuff Endocrine: Diabetes Past Surgical History Past Surgical History: Tonsillectomy, Other Family History Family History: Coronary Artery Disease Social History ALCOHOL: none Drugs: Other Lives: with Family Current Medications Current Medications Current Medications Morphine Sulfate (Morphine Sulfate) 4 mg PRN Q4HRS PRN IV SEVERE PAIN 7-10 Last administered on 02/21/20at 09:08; Start 02/21/20 at 01:00 Ondansetron HCl (Zofran) 4 mg PRN Q4HRS PRN IVP NAUSEA/VOMITING 1ST CHOICE Last administered on 02/21/20at 05:28; Start 02/21/20 at 01:00 Enalaprilat (Vasotec Inj) 1.25 mg PRN Q6HRS PRN IVP HYPERTENSION Last administered on 02/21/20at 09:05; Start 02/21/20 at 01:00 Sodium Chloride 1,000 ml @ 75 mls/hr 1X ONCE IV Last administered on 02/21/20at 10:42; Start 02/21/20 at 10:30; Stop 02/21/20 at 23:49 Active Scripts Active Morphine Sulfate Er (Morphine Sulfate) 15 Mg Tablet.er 15 Mg PO BID 6 Days Cephalexin 250 Mg Capsule 500 Mg PO QID 14 Days Hydrocodone-Apap 10-325 (Hydrocodone Bit/Acetaminophen) 1 Tab Tablet 1 Tab PO PRN Q4HRS PRN 6 Days Amlodipine Besylate 10 Mg Tablet 10 Mg PO DAILY 30 Days Clonidine Hcl 0.1 Mg Tablet 1 Tab PO TID 30 Days Isosorbide Mononitrate Er (Isosorbide Mononitrate) 60 Mg Tab.er.24h 1 Tab PO DAILY Hydralazine Hcl 100 Mg Tablet 1 Tab PO TID Atorvastatin Calcium 40 Mg Tablet 40 Mg PO QHS 30 Days Plavix (Clopidogrel Bisulfate) 75 Mg Tablet 75 Mg PO DAILYWBKFT Reported Cyclobenzaprine Hcl 10 Mg Tablet 1 Tab PO TID Trazodone Hcl 50 Mg Tablet 1 Tab PO QHS Gabapentin (Gabapentin) 300 Mg Capsule 300 Mg PO BID Children's Aspirin (Aspirin) 81 Mg Tab.chew 1 Tab PO DAILY 30 Days Coreg (Carvedilol) 25 Mg Tablet 25 Mg PO BIDWMEALS Ropinirole Hcl 0.5 Mg Tablet 0.5 Mg PO HS Protonix (Pantoprazole Sodium) 20 Mg Tablet.dr 2 Tab PO BID Temazepam 30 Mg Capsule 1 Cap PO QHS Allergies Allergies: Coded Allergies: No Known Drug Allergies (Unverified , 01/18/20) ROS Review of System As per HPI, rest of the ROS is negative Physical Exam Physical Exam GENERAL: NAD HEENT: NAD.On RA NECK: Supple. LUNGS: CTA, Non labored HEART: S1, S2 regular. ABDOMEN: soft, NT EXTREMITIES: No LE edema , s/p amputation Lt big toe NEUROLOGIC: AXOX3 No focal neurologic No medina deficit. SKIN No Rash Vital Signs Vital Signs Date Time Temp Pulse Resp B/P (MAP) Pulse Ox O2 Delivery O2 Flow Rate FiO2 02/21/20 09:38 18 98 Room Air 02/21/20 09:05 96 171/96 02/21/20 07:30 97.6 97.6 Assessment & Plan LEATHA -Vomiting/NSAID use Improving Cr 4.2 at [facility] , Bladder scan no PVR, adequate UOP IVF cautiously, Supportive care , i/o, avoid nephrotoxins CKD stage 3 - Suspect sec to HTN and CHF Baseline 1.6-2.4 , has not been seen as OP in our office NSAId use - has been taking Ibuprofen 6-8 tabs /day for past few days Chest Pain - per cardiology Hx of multiple LEATHA with Cr peaked at 5.2 Unremarkable US and UA in 2019 , CT scan at [facility] on 12/27/19- Unremarkable Kidneys Requiring HD at [facility] ,Hospitalized at [facility] Jan 2019 with BUN/Cr 130/ 6.5 Left first toe ulcer status post amputation 01/21/2020 History of osteomyelitis status post amputation Recent Hx of osteomyelitis Cardiomyopathy: EF 30-35% in 2019 HTN: BP high suspect due to Chronic Non compliance , he reports he has not bee n able to keep his meds down due to Vomiting DM2 : per PCP CAD: PCI/BMS to LAD/RCA, clinically stable. Anemia- Hgb stable, No indication for CELENA Chronic Noncompliance with meds, appointments Labs Labs Laboratory Tests Test 02/21/20 07:36 02/21/20 08:58 Glucose (Fingerstick) 77 mg/dL (70-99) White Blood Count 6.2 x10^3/uL (4.0-11.0) Red Blood Count 4.41 x10^6/uL (4.30-5.70) Hemoglobin 12.0 g/dL (13.0-17.5) Hematocrit 36.4 % (39.0-53.0) Mean Corpuscular Volume 83 fL (79-100) Mean Corpuscular Hemoglobin 27 pg (25-35) Mean Corpuscular Hemoglobin Concent 33 g/dL (31-37) Red Cell Distribution Width 16.6 % (11.5-14.5) Platelet Count 226 x10^3/uL (140-400) Neutrophils (%) (Auto) 72 % (31-73) Lymphocytes (%) (Auto) 15 % (24-48) Monocytes (%) (Auto) 8 % (0-9) Eosinophils (%) (Auto) 4 % (0-3) Basophils (%) (Auto) 1 % (0-3) Neutrophils # (Auto) 4.4 x10^3/uL (1.8-7.7) Lymphocytes # (Auto) 0.9 x10^3/uL (1.0-4.8) Monocytes # (Auto) 0.5 x10^3/uL (0.0-1.1) Eosinophils # (Auto) 0.2 x10^3/uL (0.0-0.7) Basophils # (Auto) 0.1 x10^3/uL (0.0-0.2) Sodium Level 143 mmol/L (136-145) Potassium Level 4.7 mmol/L (3.5-5.1) Chloride Level 109 mmol/L (98-107) Carbon Dioxide Level 22 mmol/L (21-32) Anion Gap 12 (6-14) Blood Urea Nitrogen 44 mg/dL (8-26) Creatinine 3.7 mg/dL (0.7-1.3) Estimated GFR (Cockcroft-Gault) 17.3 BUN/Creatinine Ratio 12 (6-20) Glucose Level 84 mg/dL (70-99) Calcium Level 9.3 mg/dL (8.5-10.1) Magnesium Level 2.8 mg/dL (1.8-2.4) Total Bilirubin 0.4 mg/dL (0.2-1.0) Aspartate Amino Transf (AST/SGOT) 19 U/L (15-37) Alanine Aminotransferase (ALT/SGPT) 14 U/L (16-63) Alkaline Phosphatase 116 U/L (46-116) Troponin I Quantitative 0.018 ng/mL (0.000-0.055) AZ-Dhx-B-Type Natriuretic Peptide 9979 pg/mL (0-124) Total Protein 7.5 g/dL (6.4-8.2) Albumin 2.9 g/dL (3.4-5.0) Albumin/Globulin Ratio 0.6 (1.0-1.7) Triglycerides Level 198 mg/dL (0-150) Cholesterol Level 209 mg/dL (0-200) LDL Cholesterol, Calculated 136 mg/dL (0-100) VLDL Cholesterol, Calculated 40 mg/dL (0-40) Non-HDL Cholesterol Calculated 176 mg/dL (0-129) HDL Cholesterol 33 mg/dL (40-60) Cholesterol/HDL Ratio 6.3 Laboratory Tests Test 02/21/20 07:36 02/21/20 08:58 Glucose (Fingerstick) 77 mg/dL (70-99) White Blood Count 6.2 x10^3/uL (4.0-11.0) Red Blood Count 4.41 x10^6/uL (4.30-5.70) Hemoglobin 12.0 g/dL (13.0-17.5) Hematocrit 36.4 % (39.0-53.0) Mean Corpuscular Volume 83 fL (79-100) Mean Corpuscular Hemoglobin 27 pg (25-35) Mean Corpuscular Hemoglobin Concent 33 g/dL (31-37) Red Cell Distribution Width 16.6 % (11.5-14.5) Platelet Count 226 x10^3/uL (140-400) Neutrophils (%) (Auto) 72 % (31-73) Lymphocytes (%) (Auto) 15 % (24-48) Monocytes (%) (Auto) 8 % (0-9) Eosinophils (%) (Auto) 4 % (0-3) Basophils (%) (Auto) 1 % (0-3) Neutrophils # (Auto) 4.4 x10^3/uL (1.8-7.7) Lymphocytes # (Auto) 0.9 x10^3/uL (1.0-4.8) Monocytes # (Auto) 0.5 x10^3/uL (0.0-1.1) Eosinophils # (Auto) 0.2 x10^3/uL (0.0-0.7) Basophils # (Auto) 0.1 x10^3/uL (0.0-0.2) Sodium Level 143 mmol/L (136-145) Potassium Level 4.7 mmol/L (3.5-5.1) Chloride Level 109 mmol/L (98-107) Carbon Dioxide Level 22 mmol/L (21-32) Anion Gap 12 (6-14) Blood Urea Nitrogen 44 mg/dL (8-26) Creatinine 3.7 mg/dL (0.7-1.3) Estimated GFR (Cockcroft-Gault) 17.3 BUN/Creatinine Ratio 12 (6-20) Glucose Level 84 mg/dL (70-99) Calcium Level 9.3 mg/dL (8.5-10.1) Magnesium Level 2.8 mg/dL (1.8-2.4) Total Bilirubin 0.4 mg/dL (0.2-1.0) Aspartate Amino Transf (AST/SGOT) 19 U/L (15-37) Alanine Aminotransferase (ALT/SGPT) 14 U/L (16-63) Alkaline Phosphatase 116 U/L (46-116) Troponin I Quantitative 0.018 ng/mL (0.000-0.055) AK-Uob-N-Type Natriuretic Peptide 9979 pg/mL (0-124) Total Protein 7.5 g/dL (6.4-8.2) Albumin 2.9 g/dL (3.4-5.0) Albumin/Globulin Ratio 0.6 (1.0-1.7) Triglycerides Level 198 mg/dL (0-150) Cholesterol Level 209 mg/dL (0-200) LDL Cholesterol, Calculated 136 mg/dL (0-100) VLDL Cholesterol, Calculated 40 mg/dL (0-40) Non-HDL Cholesterol Calculated 176 mg/dL (0-129) HDL Cholesterol 33 mg/dL (40-60) Cholesterol/HDL Ratio 6.3 Review All relevant outside records, renal labs, imaging studies, telemetry/EKG's were reviewed. MARTIN ESTEVEZ MD Feb 21, 2020 10:55
--- NOTE | 2020-02-21 11:11 | PDOC2 ---
KAMILA VILLATORO NETWORK PLANNER 02/21/20 1111: CARDIAC CONSULT DATE OF CONSULT Date of Consult DATE: 02/21/20 TIME: 11:01 REASON FOR CONSULT Reason for Consult: Chest pain REFERRING PHYSICIAN Referring Physician: Dr. Dougherty SOURCE Source: Chart review, Patient HISTORY OF PRESENT ILLNESS HISTORY OF PRESENT ILLNESS This is a 54 yo male who presented to [facility] secondary to chest pain. Patient reports nausea/vomiting for the last 3 days. Then he developed pain in his right chest. Is worse with eating and drinking. Seems to also bring it on. Reports pain to be very similar to what he previously experienced when he food lodged in his esophagus. Denies any dizziness, diaphoresis, palpitations, or SOA. PAST MEDICAL HISTORY Past Medical History Cardiovascular: CAD, CHF, HTN, Hyperlipidemia, Other (cardiomyopathy; LVEF 25% by echo 07/23/2014), syncope Pulmonary: Other (PHYLLIS), pneumonia CENTRAL NERVOUS SYSTEM: Other (RLS), CVA GI: GERD Psych: Depression Musculoskeletal: Osteoarthritis, Other (chronic pain syndrome) Renal/: Chronic renal insuff Endocrine: Diabetes (2) Dermatology: Eczema PAST SURGICAL HISTORY Past Surgical History Tonsillectomy, Other (left ankle), PCI/BMS to LAD/RCA, HD cath placement FAMILY HISTORY Family History Coronary Artery Disease (Brother in his 40s) SOCIAL HISTORY Social History Smoke: No ALCOHOL: none Drugs: Other (previous cocaine use) CURRENT MEDICATIONS CURRENT MEDICATIONS Current Medications Medications (Trade) Dose Ordered Sig/Jerri Route PRN Reason Start Time Stop Time Status Last Admin Dose Admin Morphine Sulfate (Morphine Sulfate) 4 mg PRN Q4HRS PRN IV SEVERE PAIN 7-10 02/21/20 01:00 02/21/20 09:08 Ondansetron HCl (Zofran) 4 mg PRN Q4HRS PRN IVP NAUSEA/VOMITING 1ST CHOICE 02/21/20 01:00 02/21/20 05:28 Enalaprilat (Vasotec Inj) 1.25 mg PRN Q6HRS PRN IVP HYPERTENSION 02/21/20 01:00 02/21/20 09:05 Sodium Chloride 1,000 ml @ 75 mls/hr 1X ONCE IV 02/21/20 10:30 02/21/20 23:49 02/21/20 10:42 ALLERGIES ALLERGIES: Coded Allergies: No Known Drug Allergies (Unverified , 01/18/20) ROS Review of System 14 point ROS evaluated with pertinent positives noted per HPI PHYSICAL EXAM PHYSICAL EXAM General: Alert, Oriented X3, Cooperative, No acute distress HEENT: Atraumatic, Mucous membr. moist/pink Lungs: Clear to auscultation, Normal air movement Heart: Regular rate (SR), Normal S1, Normal S2, Other (2/6 systolic murmur to LLS border) Abdomen: Soft, No tenderness Extremities: No cyanosis, No edema Skin: Other (s/p left foot toe amputation with sutures intact) Neuro: Normal speech, Sensation intact Psych/Mental Status: Mental status NL, Mood NL MUSCULOSKELETAL: Osteoarthritic changes both hands VITALS/I&O VITALS/I&O: Vital Signs Date Time Temp Pulse Resp B/P (MAP) Pulse Ox O2 Delivery O2 Flow Rate FiO2 02/21/20 09:38 18 98 Room Air 02/21/20 09:05 96 171/96 02/21/20 07:30 97.6 97.6 I & O 02/20/20 02/20/20 02/21/20 15:00 23:00 07:00 Intake Total 0 ml Output Total 400 ml Balance -400 ml LABS Lab: Laboratory Tests Test 02/21/20 07:36 02/21/20 08:58 Glucose (Fingerstick) 77 mg/dL (70-99) White Blood Count 6.2 x10^3/uL (4.0-11.0) Red Blood Count 4.41 x10^6/uL (4.30-5.70) Hemoglobin 12.0 g/dL (13.0-17.5) L Hematocrit 36.4 % (39.0-53.0) L Mean Corpuscular Volume 83 fL (79-100) Mean Corpuscular Hemoglobin 27 pg (25-35) Mean Corpuscular Hemoglobin Concent 33 g/dL (31-37) Red Cell Distribution Width 16.6 % (11.5-14.5) H Platelet Count 226 x10^3/uL (140-400) Neutrophils (%) (Auto) 72 % (31-73) Lymphocytes (%) (Auto) 15 % (24-48) L Monocytes (%) (Auto) 8 % (0-9) Eosinophils (%) (Auto) 4 % (0-3) H Basophils (%) (Auto) 1 % (0-3) Neutrophils # (Auto) 4.4 x10^3/uL (1.8-7.7) Lymphocytes # (Auto) 0.9 x10^3/uL (1.0-4.8) L Monocytes # (Auto) 0.5 x10^3/uL (0.0-1.1) Eosinophils # (Auto) 0.2 x10^3/uL (0.0-0.7) Basophils # (Auto) 0.1 x10^3/uL (0.0-0.2) Sodium Level 143 mmol/L (136-145) Potassium Level 4.7 mmol/L (3.5-5.1) Chloride Level 109 mmol/L (98-107) H Carbon Dioxide Level 22 mmol/L (21-32) Anion Gap 12 (6-14) Blood Urea Nitrogen 44 mg/dL (8-26) H Creatinine 3.7 mg/dL (0.7-1.3) H Estimated GFR (Cockcroft-Gault) 17.3 BUN/Creatinine Ratio 12 (6-20) Glucose Level 84 mg/dL (70-99) Calcium Level 9.3 mg/dL (8.5-10.1) Magnesium Level 2.8 mg/dL (1.8-2.4) H Total Bilirubin 0.4 mg/dL (0.2-1.0) Aspartate Amino Transferase (AST) 19 U/L (15-37) Alanine Aminotransferase (ALT) 14 U/L (16-63) L Alkaline Phosphatase 116 U/L (46-116) Troponin I Quantitative 0.018 ng/mL (0.000-0.055) RZ-Gjb-K-Type Natriuretic Peptide 9979 pg/mL (0-124) H Total Protein 7.5 g/dL (6.4-8.2) Albumin 2.9 g/dL (3.4-5.0) L Albumin/Globulin Ratio 0.6 (1.0-1.7) L Triglycerides Level 198 mg/dL (0-150) H Cholesterol Level 209 mg/dL (0-200) H LDL Cholesterol, Calculated 136 mg/dL (0-100) H VLDL Cholesterol, Calculated 40 mg/dL (0-40) Non-HDL Cholesterol Calculated 176 mg/dL (0-129) H HDL Cholesterol 33 mg/dL (40-60) L Cholesterol/HDL Ratio 6.3 Laboratory Tests 02/21/20 08:58 Laboratory Tests 02/21/20 08:58 ECHOCARDIOGRAM ECHOCARDIOGRAM <Conclusion> The left ventricular systolic function is moderately impaired. The Ejection Fraction is 30-35%. Transmitral Doppler flow pattern is Grade I-abnormal relaxation pattern. Trace mitral regurgitation. Trace tricuspid regurgitation. The PA pressure was estimated at 20 mmHg. There is no evidence of significant pericardial effusion. DATE: 02/11/19 1352 <Conclusion> Left ventricle systolic function is moderately impaired. The Ejection Fraction is 35%. Transmitral Doppler flow pattern is Grade I-abnormal relaxation pattern. Trace mitral regurgitation. Mild tricuspid regurgitation. The PA pressure was estimated at 39 mmHg. There is no evidence of significant pericardial effusion. DATE: 12/29/19 1453 STRESS TEST STRESS TEST STRESS TEST Conclusion 1. No evidence of EKG changes to suggest ischemia with vasodilator testing. 2. Normal perfusion at stress/rest. 3. Mild LV dysfunction. EF 50% 4. Low to moderate risk for future CV events based on lower EF. DATE: 04/22/17 1306 HEART CATH HEART CATH Findings. Hemodynamics. Left ventricular pressure of 136/26, aortic root pressure 134/88. Coronaries. Left main. The left main had no lesions. Left anterior descending. The LAD had a mid 90% lesion. Left circumflex. The left circumflex had no lesions. Right coronary artery. The right coronary had a mid diffusely diseased lesion up to 80%. There was a second mid to distal lesion of 85%. <Conclusion> 2 vessel coronary artery disease. Successful stenting of the mid LAD decreasing a 90% lesion to 0%. Successful stenting of a distal right coronary artery lesion of 85% to 0% and a mid right coronary lesion of 80% to 0%. Bare-metal stents were placed. DATE: 03/08/15 1729 ASSESSMENT/PLAN ASSESSMENT/PLAN 1. Chest pain, atypical. Most probably GI in nature 3. Nausea/vomiting; improved 4. Mild troponin elevation; peak 0.4. Most probably type II, demand ischemia. 5. CAD s/p PCI/stents with most recent at [facility] last year 6. ICM: prior EF 35%. No NSVT, noted artifact. Maintaining SR. Compensated 7. HTN: labile 8. HLP; LDL 136 9. DM2; as per IM 10. LEATHA on CKD 11. PAD s/p recent left toe amputation. Sutures intact Recommendations Agree with hydration. Resume secondary prevention measures including DAPT with ASA/Plavix therapy Restart home BP meds. Hydralazine IV PRN Consider outpatient ischemic evaluation Supportive care YOANA BROWN MD 02/21/20 1607: CARDIAC CONSULT ASSESSMENT/PLAN ASSESSMENT/PLAN Patient seen and examined Chest pain. Atypical. GI work-up in progress. History of coronary disease with stenting. Previously and at [facility] last year. Minimally elevated troponin at 0.4 most consistent with demand ischemia. Continuing medical treatment. Ischemic cardiomyopathy. Ejection fraction of 35%. Continuing present treatment. LEATHA. Creatinine at 3.7. Being evaluated by the renal service. Peripheral arterial disease status post recent left toe amputation. Diabetes mellitus. Continue present treatments as per the primary service. Thank you for allowing us to participate in the care of your patient KAMILA VILLATORO BASILIO Feb 21, 2020 11:11 YOANA BROWN MD Feb 21, 2020 16:07
--- NOTE | 2020-02-21 11:19 | HP ---
ADMIT DATE: 02/21/2020 HISTORY OF PRESENT ILLNESS: The patient is a 54-year-old male patient who presented to the Emergency Room of [facility] complaining of chest pain that is substernal. He also complained of nausea, vomiting and shortness of breath. He is known to have history of diabetes, hypertension, stage 4 renal failure, congestive heart failure, coronary artery disease, and he was evaluated in the Emergency Room of [facility] where he was investigated. His first cardiac enzyme showed troponin to be 0.042 and therefore, a decision was made to transfer him to [facility] for further evaluation and treatment. PAST MEDICAL HISTORY: Significant for coronary artery disease status post PCI with stent deployment to the left anterior descending and right coronary artery, ischemic cardiomyopathy with chronic systolic congestive heart failure, left ventricular ejection fraction of only 30-35% on recent echocardiogram. He is also known to have hypertension, hyperlipidemia, type 2 diabetes mellitus, chronic renal insufficiency, depression, gastroesophageal reflux disease and osteoarthritis. PAST SURGICAL HISTORY: Significant for tonsillectomy and partial amputation of his left big toe. ALLERGIES: He has no known drug allergies. MEDICATIONS: He is currently on following medications: He is on atorvastatin calcium 10 mg daily, hydralazine 50 mg twice a day, isosorbide mononitrate 60 mg daily, labetalol 100 mg twice a day, amlodipine besylate 10 mg once a day, hydrocodone/APAP 10/325 one tablet every 6 hours, temazepam 30 mg at bedtime, ropinirole for Requip 0.5 mg at bedtime and glimepiride 4 mg twice a day. FAMILY HISTORY: Significant for hypertension, coronary artery disease. SOCIAL HISTORY: He apparently lives with his daughter. He does not smoke, drink alcohol or use recreational drugs. REVIEW OF SYSTEMS: As per history of present illness. PHYSICAL EXAMINATION: GENERAL: On arrival to the Emergency Room, he was well-developed, well-nourished, in no acute distress. There was no pallor, jaundice, cyanosis or thyromegaly. No jugular venous distention or limb edema. VITAL SIGNS: His heart rate was 98, blood pressure was 170/92, temperature was 98.3, respiratory rate was 22 and oxygen saturation was 94% on room air. HEAD, EYES, EARS, NOSE AND THROAT: Showed normocephalic, atraumatic. NECK: Supple. HEART: Showed normal first and second heart sounds. No gallop or murmur. CHEST: Clear to auscultation. No crepitation or rhonchi. ABDOMEN: Distended, soft, nontender. No guarding or rigidity. No organomegaly. All hernial orifice intact. Bowel sounds normal. NEUROLOGIC: He was awake, alert, responding appropriately. All cranial nerves intact. EXTREMITIES: He moves extremities without difficulty. LABORATORY DATA: His lab work showed white cell count 6500, hemoglobin 12.6, hematocrit 39, MCV 84 and platelet count 244,000. His chemistry showed a serum sodium 140, potassium 4.9, chloride 105, bicarbonate 19, anion gap of 16, BUN 45, creatinine 4.2. Estimated GFR was 14 mL per minute. Glucose 131, calcium was 10. Magnesium was 2.6. Total bilirubin, AST, ALT were normal. Alkaline phosphatase slightly elevated. Troponin was 0.042 and beta natriuretic peptide was 5291. Total protein 8.4 and albumin was 3.3. His prothrombin time, INR and aPTT are normal. Urinalysis was essentially unremarkable and toxic screen was positive for opiates and cocaine. ASSESSMENT AND PLAN: In summary, this is a 54-year-old male patient who yet again came with another episode of chest pain. His first set of cardiac enzyme was slightly elevated at 0.42. He has also acute on chronic kidney injury, hypertensive urgency and questionable congestive heart failure, although the chest x-ray showed that the heart size and pulmonary vasculature are normal. No infiltrate or pleural effusion. Radiopaque density at the left apical lobe is unchanged. Bony structures are grossly unremarkable. He was admitted to [facility]. We will do two more sets of cardiac enzyme. We will consult the recovery unit operator as well as the speech language pathology assistant and we will reconcile all his medications and decide further management accordingly. SAMM PRASAD MD DR: OH/jose JOB#: [id number] / [id number]
--- NOTE | 2020-02-21 11:45 | NUR ---
Wound Care Wound Type/Assessment: Left 1st ray amputation revision and a R great toe DFU. 1st ray amp site is well approximated along incision line, except one small area of separation between sutures that appears superficial. R distal great toe wound is mostly epithelialized, with a small open, granulated area. Treatment Recommendations/Plan: Notify Vascular re: pt admission, as pt was scheduled with them today for possible suture removal. Xeroform gauze and a bandaid to R great toe, change every 2-3 days. Education provided: to pt re: dressing changes and Vascular f/u. Offloading surface/device: pt needs to be fitted for diabetic shoes when discharged. Recommended Referrals/Tests: Vascular BOILER TECHNICIAN, Luz Marina Bahena notified of admit, who requested that this RN also call office re: consult. Discharge Recommendations for dressings: Defer to Vascular, pt may f/u in [facility].
[2020-02-21] MEDS: ASPIRIN CHEWABLE 81 MG TABLET. PO SCH (12:27)
[2020-02-21] MEDS: amLODIPine BESYLATE 10 MG TABLET PO SCH (12:27)
[2020-02-21] MEDS: GABAPENTIN 300 MG CAPSULE. PO SCH ×2 (12:27→20:04)
[2020-02-21] MEDS: CLOPIDOGREL BISULFATE 75 MG TABLET PO SCH (12:28)
[2020-02-21] MEDS: CARVEDILOL 12.5 MG TABLET. PO SCH ×2 (12:28→17:32)
--- NOTE | 2020-02-21 13:20 | NUR ---
Dr. Lizarraga office called at [phone] to notify about patient admission and need to remove sutures to left foot. Luz Marina, nurse practitioner called back. She states that they will see patient tomorrow.
--- NOTE | 2020-02-21 13:48 | NUR ---
SS following for discharge planning. SS reviewed pt chart and discussed with pt RN. Pt is from home with daughter and is currently on room air. Discharge plan is to home when medically ready. SS will continue to follow for discharge planning.
[2020-02-21] MEDS: cloNIDine HCL 0.1 MG TABLET PO SCH ×2 (14:00→20:04)
[2020-02-21] MEDS: CYCLOBENZAPRINE 10 MG TABLET. PO SCH ×2 (15:36→20:04)
[2020-02-21] MEDS: PANTOPRAZOLE 40 MG TABLET.DR. PO SCH (15:36)
[2020-02-21] MEDS: ATORVASTATIN CALCIUM 40 MG TABLET. PO SCH (20:05)
[2020-02-21] MEDS: rOPINIRole 0.25 MG TABLET. PO SCH (21:20)
[2020-02-21] MEDS: traZODone 50 MG TABLET. PO SCH (21:20)
[2020-02-21] MEDS: TEMAZEPAM 15 MG CAPSULE PO SCH (21:21)
[2020-02-22 03:05] VITALS: BP 144/89
[2020-02-22] MEDS: MORPHINE SULFATE 4 MG/ML VIAL. IV PRN ×4 (03:11→21:29)
[2020-02-22 07:00] VITALS: BP 144/83
[2020-02-22] MEDS: PANTOPRAZOLE 40 MG TABLET.DR. PO SCH ×2 (07:46→16:50)
[2020-02-22] MEDS: CLOPIDOGREL BISULFATE 75 MG TABLET PO SCH (08:22)
[2020-02-22] MEDS: ISOSORBIDE MONONITRATE ER 30 MG TAB.ER.24H PO SCH (08:22)
[2020-02-22] MEDS: cloNIDine HCL 0.1 MG TABLET PO SCH (08:23)
[2020-02-22] MEDS: amLODIPine BESYLATE 10 MG TABLET PO SCH (08:23)
[2020-02-22] MEDS: ASPIRIN CHEWABLE 81 MG TABLET. PO SCH (08:24)
[2020-02-22] MEDS: CARVEDILOL 12.5 MG TABLET. PO SCH ×2 (08:24→18:00)
[2020-02-22] MEDS: GABAPENTIN 300 MG CAPSULE. PO SCH ×2 (08:24→21:24)
[2020-02-22] MEDS: CYCLOBENZAPRINE 10 MG TABLET. PO SCH ×3 (08:24→21:24)
[2020-02-22 08:31] LABS: ALBUMIN 2.6 g/dL (3.4-5.0); CALCIUM 8.4 mg/dL (8.5-10.1); CREATININE 3.2 mg/dL (0.7-1.3); GFR 20.4; PHOSPHORUS 3.5 mg/dL (2.6-4.7); POTASSIUM 4.7 mmol/L (3.5-5.1)
--- NOTE | 2020-02-22 09:42 | PDOC ---
DATE OF SERVICE DATE: 02/22/20 TIME: 09:41 SUBJECTIVE ROS Stable OBJECTIVE Vital Signs Vital Signs Date Time Temp Pulse Resp B/P (MAP) Pulse Ox O2 Delivery O2 Flow Rate FiO2 02/22/20 08:24 83 144/83 02/22/20 08:24 98 Room Air 02/22/20 07:00 97.6 18 97.6 I & 0 Intake and Output 02/22/20 07:00 Intake Total 4130 ml Output Total 1050 ml Balance 3080 ml Intake Oral 3180 ml IV Total 950 ml Output Urine Total 1050 ml PHYSICAL EXAM Physical Exam GENERAL: NAD HEENT: NAD.On RA NECK: Supple. LUNGS: CTA, Non labored HEART: S1, S2 regular. ABDOMEN: soft, NT EXTREMITIES: No LE edema , s/p amputation Lt big toe NEUROLOGIC: AXOX3 No focal neurologic No medina deficit. SKIN No Rash DIAGNOSIS/ASSESSMENT Assessment & Plan LEATHA -Vomiting/NSAID use Improving, Cr 4.2 at [facility] Supportive care , i/o, avoid nephrotoxins CKD stage 4 - Suspect sec to HTN and CHF Baseline 2.6- 3.0 , has not been seen as OP in our office NSAId use - has been taking Ibuprofen 6-8 tabs /day for past few days Chest Pain - per cardiology Hx of multiple LEATHA with Cr peaked at 5.2 Unremarkable US and UA in 2019 , CT scan at [facility] on 12/27/19- Unremarkable Kidneys Requiring HD at [facility] ,Hospitalized at [facility] Jan 2019 with BUN/Cr 130/ 6.5 Left first toe ulcer status post amputation 01/21/2020 History of osteomyelitis status post amputation Recent Hx of osteomyelitis Cardiomyopathy: EF 30-35% in 2019 HTN: BP high suspect due to Chronic Non compliance , he reports he has not been able to keep his meds down due to Vomiting DM2 : per PCP CAD: PCI/BMS to LAD/RCA, clinically stable. Anemia- Hgb stable, No indication for CELENA Chronic Noncompliance with meds, appointments DC per primary , fu appt with PCP with BMP in 2-3 weeks COMMENT/RELEVANT DATA Meds Current Medications Medications (Trade) Dose Ordered Sig/Jerri Start Time Stop Time Status Last Admin Dose Admin Amlodipine Besylate (Norvasc) 10 mg DAILY 02/21/20 12:30 02/22/20 08:23 10 MG Aspirin (Aspirin Chewable) 81 mg DAILY 02/21/20 12:30 02/22/20 08:24 81 MG Atorvastatin Calcium (Lipitor) 40 mg QHS 02/21/20 21:00 02/21/20 20:05 40 MG Carvedilol (Coreg) 25 mg BIDWMEALS 02/21/20 12:30 02/22/20 08:24 25 MG Clonidine HCl (Catapres) 0.1 mg TID 02/21/20 14:00 02/22/20 08:23 0.1 MG Clopidogrel Bisulfate (Plavix) 75 mg DAILYWBKFT 02/21/20 12:30 02/22/20 08:22 75 MG Cyclobenzaprine HCl (Flexeril) 10 mg TID 02/21/20 14:00 02/22/20 08:24 10 MG Enalaprilat (Vasotec Inj) 1.25 mg PRN Q6HRS PRN 02/21/20 01:00 02/21/20 09:05 1.25 MG Gabapentin (Neurontin) 300 mg BID 02/21/20 12:30 02/22/20 08:24 300 MG Hydralazine HCl (Apresoline) 100 mg TID 02/21/20 14:00 02/22/20 08:23 100 MG Isosorbide Mononitrate (Imdur) 60 mg DAILY 02/22/20 09:00 02/22/20 08:22 60 MG Morphine Sulfate (Morphine Sulfate) 4 mg PRN Q4HRS PRN 02/21/20 01:00 02/22/20 07:53 4 MG Ondansetron HCl (Zofran) 4 mg PRN Q4HRS PRN 02/21/20 01:00 02/21/20 12:30 4 MG Pantoprazole Sodium (Protonix) 40 mg BIDAC 02/21/20 16:30 02/22/20 07:46 40 MG Ropinirole HCl (Requip) 0.5 mg QHS 02/21/20 21:00 02/21/20 21:20 0.5 MG Sodium Chloride 1,000 ml @ 75 mls/hr 1X ONCE 02/21/20 10:30 02/21/20 23:49 DC 02/21/20 10:42 75 MLS/HR Temazepam (Restoril) 30 mg QHS 02/21/20 21:00 02/21/20 21:21 30 MG Trazodone HCl (Desyrel) 50 mg QHS 02/21/20 21:00 02/21/20 21:20 50 MG Lab Laboratory Tests Test 02/21/20 11:41 02/21/20 16:39 02/21/20 20:34 02/22/20 07:30 Glucose (Fingerstick) 124 mg/dL (70-99) 160 mg/dL (70-99) 137 mg/dL (70-99) 98 mg/dL (70-99) Test 02/22/20 07:54 Sodium Level 139 mmol/L (136-145) Potassium Level 4.7 mmol/L (3.5-5.1) Chloride Level 106 mmol/L (98-107) Carbon Dioxide Level 24 mmol/L (21-32) Anion Gap 9 (6-14) Blood Urea Nitrogen 39 mg/dL (8-26) Creatinine 3.2 mg/dL (0.7-1.3) Estimated GFR (Cockcroft-Gault) 20.4 Glucose Level 97 mg/dL (70-99) Calcium Level 8.4 mg/dL (8.5-10.1) Phosphorus Level 3.5 mg/dL (2.6-4.7) Albumin 2.6 g/dL (3.4-5.0) Results All relevant outside records, renal labs, imaging studies, telemetry/EKG's were reviewed. Justicifation of Admission Dx: Justifications for Admission: Justification of Admission Dx: Yes Acute Renal Failure: Serum Cr > 4mg/dL Cellulitis: Cellulitis MARTIN ESTEVEZ MD Feb 22, 2020 09:41
--- NOTE | 2020-02-22 11:00 | NUR ---
Dr. Edmond removed sutures from amputation of left great toe.
[2020-02-22 11:04] VITALS: BP 101/66
--- NOTE | 2020-02-22 11:20 | PDOC ---
PROGRESS NOTES Date of Service DATE: 02/22/20 TIME: 11:17 Subjective Subjective Pt known to our service -- recent left great toe amputation, sutures still in place. I removed the sutures at bedside today, appears to be healing decently well. He has a new right great toe shallow ulcer on the distal tip. I am unable to palpate pulses at the right ankle but signals are present He is admitted with acute on chronic renal failure (NSAID use and vomiting on top of CKD) and Cr is still very elevated so no angiogram at this time I discussed wound care with his nurse, recommend continued offloading left foot surgical wound See us back in the office in ~ 2 weeks with wound check and bilateral arterial duplex. Objective Objective Vital Signs Date Time Temp Pulse Resp B/P (MAP) Pulse Ox O2 Delivery O2 Flow Rate FiO2 02/22/20 11:04 97.8 87 16 101/66 (78) 97 Room Air 97.8 Intake and Output 02/22/20 07:00 Intake Total 4130 ml Output Total 1050 ml Balance 3080 ml Intake Oral 3180 ml IV Total 950 ml Output Urine Total 1050 ml Comment Review of Relevant I have reviewed the following items gavin (where applicable) has been applied. Labs Laboratory Tests Test 02/21/20 07:36 02/21/20 08:58 02/21/20 11:41 02/21/20 16:39 Glucose (Fingerstick) 77 mg/dL (70-99) 124 mg/dL (70-99) 160 mg/dL (70-99) White Blood Count 6.2 x10^3/uL (4.0-11.0) Red Blood Count 4.41 x10^6/uL (4.30-5.70) Hemoglobin 12.0 g/dL (13.0-17.5) Hematocrit 36.4 % (39.0-53.0) Mean Corpuscular Volume 83 fL (79-100) Mean Corpuscular Hemoglobin 27 pg (25-35) Mean Corpuscular Hemoglobin Concent 33 g/dL (31-37) Red Cell Distribution Width 16.6 % (11.5-14.5) Platelet Count 226 x10^3/uL (140-400) Neutrophils (%) (Auto) 72 % (31-73) Lymphocytes (%) (Auto) 15 % (24-48) Monocytes (%) (Auto) 8 % (0-9) Eosinophils (%) (Auto) 4 % (0-3) Basophils (%) (Auto) 1 % (0-3) Neutrophils # (Auto) 4.4 x10^3/uL (1.8-7.7) Lymphocytes # (Auto) 0.9 x10^3/uL (1.0-4.8) Monocytes # (Auto) 0.5 x10^3/uL (0.0-1.1) Eosinophils # (Auto) 0.2 x10^3/uL (0.0-0.7) Basophils # (Auto) 0.1 x10^3/uL (0.0-0.2) Sodium Level 143 mmol/L (136-145) Potassium Level 4.7 mmol/L (3.5-5.1) Chloride Level 109 mmol/L (98-107) Carbon Dioxide Level 22 mmol/L (21-32) Anion Gap 12 (6-14) Blood Urea Nitrogen 44 mg/dL (8-26) Creatinine 3.7 mg/dL (0.7-1.3) Estimated GFR (Cockcroft-Gault) 17.3 BUN/Creatinine Ratio 12 (6-20) Glucose Level 84 mg/dL (70-99) Calcium Level 9.3 mg/dL (8.5-10.1) Magnesium Level 2.8 mg/dL (1.8-2.4) Total Bilirubin 0.4 mg/dL (0.2-1.0) Aspartate Amino Transf (AST/SGOT) 19 U/L (15-37) Alanine Aminotransferase (ALT/SGPT) 14 U/L (16-63) Alkaline Phosphatase 116 U/L (46-116) Troponin I Quantitative 0.018 ng/mL (0.000-0.055) QT-Qob-L-Type Natriuretic Peptide 9979 pg/mL (0-124) Total Protein 7.5 g/dL (6.4-8.2) Albumin 2.9 g/dL (3.4-5.0) Albumin/Globulin Ratio 0.6 (1.0-1.7) Triglycerides Level 198 mg/dL (0-150) Cholesterol Level 209 mg/dL (0-200) LDL Cholesterol, Calculated 136 mg/dL (0-100) VLDL Cholesterol, Calculated 40 mg/dL (0-40) Non-HDL Cholesterol Calculated 176 mg/dL (0-129) HDL Cholesterol 33 mg/dL (40-60) Cholesterol/HDL Ratio 6.3 Test 02/21/20 20:34 02/22/20 07:30 02/22/20 07:54 Glucose (Fingerstick) 137 mg/dL (70-99) 98 mg/dL (70-99) Sodium Level 139 mmol/L (136-145) Potassium Level 4.7 mmol/L (3.5-5.1) Chloride Level 106 mmol/L (98-107) Carbon Dioxide Level 24 mmol/L (21-32) Anion Gap 9 (6-14) Blood Urea Nitrogen 39 mg/dL (8-26) Creatinine 3.2 mg/dL (0.7-1.3) Estimated GFR (Cockcroft-Gault) 20.4 Glucose Level 97 mg/dL (70-99) Calcium Level 8.4 mg/dL (8.5-10.1) Phosphorus Level 3.5 mg/dL (2.6-4.7) Albumin 2.6 g/dL (3.4-5.0) Laboratory Tests Test 02/21/20 11:41 02/21/20 16:39 02/21/20 20:34 02/22/20 07:30 Glucose (Fingerstick) 124 mg/dL (70-99) 160 mg/dL (70-99) 137 mg/dL (70-99) 98 mg/dL (70-99) Test 02/22/20 07:54 Sodium Level 139 mmol/L (136-145) Potassium Level 4.7 mmol/L (3.5-5.1) Chloride Level 106 mmol/L (98-107) Carbon Dioxide Level 24 mmol/L (21-32) Anion Gap 9 (6-14) Blood Urea Nitrogen 39 mg/dL (8-26) Creatinine 3.2 mg/dL (0.7-1.3) Estimated GFR (Cockcroft-Gault) 20.4 Glucose Level 97 mg/dL (70-99) Calcium Level 8.4 mg/dL (8.5-10.1) Phosphorus Level 3.5 mg/dL (2.6-4.7) Albumin 2.6 g/dL (3.4-5.0) Medications Current Medications Morphine Sulfate (Morphine Sulfate) 4 mg PRN Q4HRS PRN IV SEVERE PAIN 7-10 Last administered on 02/22/20 07:53; Start 02/21/20 at 01:00 Ondansetron HCl (Zofran) 4 mg PRN Q4HRS PRN IVP NAUSEA/VOMITING 1ST CHOICE Last administered on 02/21/20 12:30; Start 02/21/20 at 01:00 Enalaprilat (Vasotec Inj) 1.25 mg PRN Q6HRS PRN IVP HYPERTENSION Last administered on 02/21/20 09:05; Start 02/21/20 at 01:00 Sodium Chloride 1,000 ml @ 75 mls/hr 1X ONCE IV Last administered on 02/21/20 10:42; Start 02/21/20 at 10:30; Stop 02/21/20 at 23:49; Status DC Amlodipine Besylate (Norvasc) 10 mg DAILY PO Last administered on 02/22/20 08:23; Start 02/21/20 at 12:30 Aspirin (Aspirin Chewable) 81 mg DAILY PO Last administered on 02/22/20 08:24; Start 02/21/20 at 12:30 Atorvastatin Calcium (Lipitor) 40 mg QHS PO Last administered on 02/21/20 20:05; Start 02/21/20 at 21:00 Clonidine HCl (Catapres) 0.1 mg TID PO Last administered on 02/22/20 08:23; Start 02/21/20 at 14:00 Clopidogrel Bisulfate (Plavix) 75 mg DAILYWBKFT PO Last administered on 02/22/20 08:22; Start 02/21/20 at 12:30 Cyclobenzaprine HCl (Flexeril) 10 mg TID PO Last administered on 02/22/20 08:24; Start 02/21/20 at 14:00 Gabapentin (Neurontin) 300 mg BID PO Last administered on 02/22/20 08:24; Start 02/21/20 at 12:30 Carvedilol (Coreg) 25 mg BIDWMEALS PO Last administered on 02/22/20 08:24; Start 02/21/20 at 12:30 Hydralazine HCl (Apresoline) 100 mg TID PO Last administered on 9/29/20at 08:23; Start 02/21/20 at 14:00 Isosorbide Mononitrate (Imdur) 60 mg DAILY PO Last administered on 02/22/20at 08:22; Start 02/22/20 at 09:00 Pantoprazole Sodium (Protonix) 40 mg BIDAC PO Last administered on 02/22/20at 07:46; Start 02/21/20 at 16:30 Temazepam (Restoril) 30 mg QHS PO Last administered on 02/21/20at 21:21; Start 02/21/20 at 21:00 Trazodone HCl (Desyrel) 50 mg QHS PO Last administered on 02/21/20at 21:20; St art 02/21/20 at 21:00 Ropinirole HCl (Requip) 0.5 mg QHS PO Last administered on 02/21/20at 21:20; Start 02/21/20 at 21:00 Bacitracin (Bacitracin Zinc Oint Pkt) 1 pkt BID TP ; Start 02/22/20 at 11:15 Active Scripts Active Morphine Sulfate Er (Morphine Sulfate) 15 Mg Tablet.er 15 Mg PO BID 6 Days Cephalexin 250 Mg Capsule 500 Mg PO QID 14 Days Hydrocodone-Apap 10-325 (Hydrocodone Bit/Acetaminophen) 1 Tab Tablet 1 Tab PO PRN Q4HRS PRN 6 Days Amlodipine Besylate 10 Mg Tablet 10 Mg PO DAILY 30 Days Clonidine Hcl 0.1 Mg Tablet 1 Tab PO TID 30 Days Isosorbide Mononitrate Er (Isosorbide Mononitrate) 60 Mg Tab.er.24h 1 Tab PO DAILY Hydralazine Hcl 100 Mg Tablet 1 Tab PO TID Atorvastatin Calcium 40 Mg Tablet 40 Mg PO QHS 30 Days Plavix (Clopidogrel Bisulfate) 75 Mg Tablet 75 Mg PO DAILYWBKFT Reported Cyclobenzaprine Hcl 10 Mg Tablet 1 Tab PO TID Trazodone Hcl 50 Mg Tablet 1 Tab PO QHS Gabapentin (Gabapentin) 300 Mg Capsule 300 Mg PO BID Children's Aspirin (Aspirin) 81 Mg Tab.chew 1 Tab PO DAILY 30 Days Coreg (Carvedilol) 25 Mg Tablet 25 Mg PO BIDWMEALS Ropinirole Hcl 0.5 Mg Tablet 0.5 Mg PO HS Protonix (Pantoprazole Sodium) 20 Mg Tablet.dr 2 Tab PO BID Temazepam 30 Mg Capsule 1 Cap PO QHS Vitals/I & O Vital Sign - Last 24 Hours 02/21/20 02/21/20 02/21/20 02/21/20 12:05 12:27 12:28 15:28 Temp 97.8 98.1 97.8 98.1 Pulse 96 96 96 85 Resp 18 18 B/P (MAP) 169/98 (121) 169/98 169/98 124/79 (94) Pulse Ox 95 97 O2 Delivery Room Air Room Air 02/21/20 02/21/20 02/21/20 02/21/20 15:37 17:32 17:34 18:04 Pulse 85 80 Resp 18 B/P (MAP) 124/79 137/95 Pulse Ox 97 97 O2 Delivery Room Air Room Air 02/21/20 02/21/20 02/21/20 02/21/20 19:10 19:31 20:04 20:04 Temp 98.1 98.1 Pulse 85 85 85 Resp 18 B/P (MAP) 124/75 (91) 124/75 124/75 Pulse Ox 96 O2 Delivery Room Air Room Air 02/21/20 02/21/20 02/21/20 02/22/20 21:21 21:51 23:00 03:05 Temp 97.8 97.8 97.8 97.8 Pulse 88 83 Resp 18 20 18 18 B/P (MAP) 107/68 (81) 144/89 (107) Pulse Ox 96 98 O2 Delivery Room Air Room Air Room Air 02/22/20 02/22/20 02/22/20 02/22/20 03:11 03:41 07:00 07:53 Temp 97.6 97.6 Pulse 83 Resp 18 20 18 B/P (MAP) 144/83 (103) Pulse Ox 96 98 O2 Delivery Room Air Room Air Room Air Room Air 02/22/20 02/22/20 02/22/20 02/22/20 08:22 08:23 08:23 08:23 Pulse 83 83 83 83 B/P (MAP) 144/83 144/83 144/83 144/83 02/22/20 02/22/20 02/22/20 08:24 08:24 11:04 Temp 97.8 97.8 Pulse 83 87 Resp 16 B/P (MAP) 144/83 101/66 (78) Pulse Ox 98 97 O2 Delivery Room Air Room Air Intake and Output 02/21/20 02/21/20 02/22/20 15:00 23:00 07:00 Intake Total 980 ml 1750 ml 1400 ml Output Total 300 ml 750 ml Balance 680 ml 1000 ml 1400 ml Justifications for Admission Other Justification KYA,ELIER Dang MD Feb 22, 2020 11:20
--- NOTE | 2020-02-22 11:40 | NUR ---
SW following. Discussed with RN, pt from home with daughter, mark diet, room air. No PT/OT ordered. Vascular removed sutures from previous surgery. SW will continue to follow.
--- NOTE | 2020-02-22 13:44 | PDOC ---
KAMILA VILLATORO CHEMICAL LABORATORY SCIENTIST 02/22/20 1344: CARDIO Progress Notes Date and Time Date of Service 02/22/20 Time of Evaluation 1315 Subjective Subjective: No shortness of breath, No Palpitations, Other (continues to habe chest pain with eating/drinking) Vitals Vitals Vital Signs Date Time Temp Pulse Resp B/P (MAP) Pulse Ox O2 Delivery O2 Flow Rate FiO2 02/22/20 11:04 97.8 87 16 101/66 (78) 97 Room Air 97.8 Weight Weight [ ] Input and Output Intake and Output Intake and Output 02/22/20 07:00 Intake Total 4130 ml Output Total 1050 ml Balance 3080 ml Intake Oral 3180 ml IV Total 950 ml Output Urine Total 1050 ml Laboratory Labs Laboratory Tests Test 02/21/20 16:39 02/21/20 20:34 02/22/20 07:30 02/22/20 07:54 Glucose (Fingerstick) 160 mg/dL (70-99) 137 mg/dL (70-99) 98 mg/dL (70-99) Sodium Level 139 mmol/L (136-145) Potassium Level 4.7 mmol/L (3.5-5.1) Chloride Level 106 mmol/L (98-107) Carbon Dioxide Level 24 mmol/L (21-32) Anion Gap 9 (6-14) Blood Urea Nitrogen 39 mg/dL (8-26) Creatinine 3.2 mg/dL (0.7-1.3) Estimated GFR (Cockcroft-Gault) 20.4 Glucose Level 97 mg/dL (70-99) Calcium Level 8.4 mg/dL (8.5-10.1) Phosphorus Level 3.5 mg/dL (2.6-4.7) Albumin 2.6 g/dL (3.4-5.0) Test 02/22/20 11:42 Glucose (Fingerstick) 138 mg/dL (70-99) Physical Exam HEENT: Neck Supple W Full Motion Chest: Symmetric LUNGS: Clear to Auscultation Heart: RRR Abdomen: Soft N/T Extremities: No Edema, Other (s/p recent left great to amputation) Neurology: alert, oriented, follow commands Assessment Assessment 1. Chest pain, atypical. Most probably GI in nature 3. Nausea/vomiting; improved 4. Mild troponin elevation; peak 0.4. Most probably type II, demand ischemia. 5. CAD s/p PCI/stents with most recent at [facility] last year 6. ICM: prior EF 35%. Compensated 7. HTN: now low end 8. HLP; LDL 136 9. DM2; as per IM 10. LEATHA on CKD; mild improvement 11. PAD s/p recent left toe amputation. Sutures removed. Wound on right great toes as well. Vascular following. Outpatient arterial study/follow up planned. Recommendations Will try GI cocktail with ongoing chest pain with eating/drinking Discontinue clonidine with hypotension Secondary prevention measures including DAPT with ASA/Plavix therapy Avoid nephrotoxins Consider outpatient ischemic evaluation Supportive care Justicifation of Admission Dx: Justifications for Admission: Justification of Admission Dx: Yes Acute Renal Failure: Serum Cr > 4mg/dL Cellulitis: Cellulitis YOANA BROWN MD 02/22/20 1651: CARDIO Progress Notes Assessment Assessment Patient seen and examined Chest pain, atypical. Improving. Minimal elevation in troponin. Most probably GI in nature Nausea/vomiting; improved Mild troponin elevation; peak 0.4. Most probably type II, demand ischemia. CAD s/p PCI/stents with most recent at [facility] last year ICM: prior EF 35%. Compensated HTN: now low end HLP; LDL 136 DM2; as per IM LEATHA on CKD; mild improvement PAD s/p recent left toe amputation. Sutures removed. Wound on right great toes as well. Vascular following. KAMILA VILLATORO APRN Feb 22, 2020 13:44 YOANA BROWN MD Feb 22, 2020 16:51
[2020-02-22] MEDS: BACITRACIN TOPICAL OINT PACKET. TP SCH ×2 (13:55→21:24)
[2020-02-22 14:52] VITALS: BP 109/66
[2020-02-22] MEDS ORDERED: LIDO:MAALOX 1:1 20 ML SINGLE DOSE. SWSW ONE (15:00)
[2020-02-22] MEDS: HYDROcodone/APAP 10/325 1 TAB TABLET PO PRN (16:50)
[2020-02-22 19:00] VITALS: BP 137/84
[2020-02-22] MEDS: traZODone 50 MG TABLET. PO SCH (21:24)
[2020-02-22] MEDS: ATORVASTATIN CALCIUM 40 MG TABLET. PO SCH (21:25)
[2020-02-22] MEDS: rOPINIRole 0.25 MG TABLET. PO SCH (21:25)
[2020-02-22] MEDS: TEMAZEPAM 15 MG CAPSULE PO SCH (21:25)
--- NOTE | 2020-02-22 21:28 | PN ---
DATE: 02/22/2020 SUBJECTIVE: The patient is resting, slightly propped up in bed, sleeping comfortably. On questioning him, he obviously continued to complain of pain, although he was snoring and was worried about his discharge medication; however, he was seen by the vascular surgeon who took the sutures out of his wound, but not recommended any angiograms given impaired kidney function. He was seen also by the accounting recruiter team and given his impaired kidney function, no cardiac workup is recommended. His kidney function is gradually improving and his creatinine came down, today it is down to 3.2 from 4.2 at [facility]. PHYSICAL EXAMINATION: GENERAL: When I examined him, he looked pale, but no jaundice, cyanosis or thyromegaly. No jugular venous distention. No limb edema. VITAL SIGNS: His heart rate was 87, blood pressure was 101/66, temperature 97.8, respiratory rate was 16, and oxygen saturation was 97%. HEENT: Normocephalic, atraumatic. NECK: Supple. HEART: Showed normal first and second heart sounds. No gallop or murmur. CHEST: Clear to auscultation. No crepitation or rhonchi. ABDOMEN: Distended, soft. NEUROLOGIC: He is very lethargic, but arousable. All cranial nerves are intact. He moves extremities without difficulty. His wound on the left big toe has healed nicely. His intake and output are incompletely recorded. LABORATORY DATA: He lab work as of yesterday showed a white cell count 6200, hemoglobin 12, hematocrit 36, MCV 83, platelet count 226,000. His chemistry showed a serum sodium 139, potassium 4.7, chloride 106, bicarbonate 24, anion gap of 9, BUN 39, creatinine 3.2, estimated GFR was 20 mL per minute. His calcium was 8.4, phosphorus was 3.5, magnesium was 2.8. ASSESSMENT: Acute kidney injury, improving. His creatinine was 4.2, today it is 3.2, chronic kidney disease, stage 4 secondary to hypertensive nephrosclerosis as well as cardiorenal syndrome, chest pain. The patient has no evidence of myocardial infarction. His troponin was 0.018 and no further ischemic workup is recommended given his impaired kidney function and it is felt that all his symptoms are probably due to gastrointestinal. Other medical problems include ischemic cardiomyopathy, hypertension, type 2 diabetes mellitus, coronary artery disease, status post percutaneous coronary intervention to left anterior descending and right coronary artery, anemia. Unfortunately, the patient is very noncompliant with his medication appointment. SAMM PRASAD MD DR: OH/jose JOB#: [id number] / [id number]
[2020-02-22 23:23] VITALS: BP 164/96
[2020-02-23] MEDS: MORPHINE SULFATE 4 MG/ML VIAL. IV PRN ×5 (02:51→21:43)
[2020-02-23 02:53] VITALS: BP 142/90
[2020-02-23 07:00] VITALS: BP 152/88
[2020-02-23 07:23] LABS: CALCIUM 8.2 mg/dL (8.5-10.1); CREATININE 3.4 mg/dL (0.7-1.3); POTASSIUM 4.5 mmol/L (3.5-5.1)
[2020-02-23] MEDS: GABAPENTIN 300 MG CAPSULE. PO SCH ×2 (09:01→21:44)
[2020-02-23] MEDS: PANTOPRAZOLE 40 MG TABLET.DR. PO SCH ×2 (09:01→17:58)
[2020-02-23] MEDS: CLOPIDOGREL BISULFATE 75 MG TABLET PO SCH (09:01)
[2020-02-23] MEDS: ASPIRIN CHEWABLE 81 MG TABLET. PO SCH (09:01)
[2020-02-23] MEDS: ISOSORBIDE MONONITRATE ER 30 MG TAB.ER.24H PO SCH (09:02)
[2020-02-23] MEDS: amLODIPine BESYLATE 10 MG TABLET PO SCH (09:03)
[2020-02-23] MEDS: CARVEDILOL 12.5 MG TABLET. PO SCH ×2 (09:03→17:58)
--- NOTE | 2020-02-23 09:04 | PDOC2 ---
GI CONSULT Date of Service: DATE: 02/23/20 TIME: 09:04 Reason For Consult: epigastric pain HPI: HPI: 54 y/o male sent from [facility] a couple days ago. Tells me mid/right-sided chest pain w/ possible radiation through to back began after eating a turkey sandwich on Friday. Says caused by something getting stuck on the way down. Pain was sharp and burning. Similar symptoms in the past - can't remember when but had an EGD to removal food bolus at [facility]. Was actually been having swallowing issues almost daily prior to admission - occurs w/ solids, liquids, pills - spits out "a bunch of saliva" sometimes, and sometimes coughs food out. This time, initial pain resolved - able to eat yesterday but then some beef and noodles got stuck - says he coughed out some saliva but no food came up. Says he washed it down w/ tea. Pain resolved again. GI cocktail ineffective. Tolerated breakfast (scrambled eggs) this morning without issue. Has lost 17 pounds over a few weeks - doesn't think all related to swallowing issues, but also hasn't had a great appetite. Might had some RUQ/epigastric discomfort sometimes - not really sure. Hasn't stooled in a few days but usually no issues w/ constipation. Denies vomiting, hematemesis/hemoptysis, diarrhea, hematochezia, or melena. No previous colonoscopy. No GB, liver, pancreas, or PUD history. H/o CAD and PAD on Plavix and ASA "sometimes." Chronic back pain on hydrocodone. On PPI BID here. PMH: PMH: CAD, CHF, HTN, HLD, cardiomyopathy, PHYLLIS, pnuemonia, RLS, CVA, depression, OA, chronic back pain, DM, eczema, CKD, PAD, osteomyelitis tonsillectomy, left wrist surgery, right ankle surgery, PCIm left toe amputation FH: Family History: No pertinent hx (denies GI cancers), Cancer (brother - lung) Social History: Smoke: No ALCOHOL: none Drugs: Cocaine (in the past) ROS: GEN: Denies fevers, chills, sweats HEENT: Denies blurred vision, sore throat CV: +CP RESP: Denies shortness of air, cough GI: Per HPI : Denies hematuria, dysuria ENDO: +weight loss NEURO: Denies confusion, dizziness MSK: +back pain SKIN: Denies jaundice, pruritus Vitals: Vitals: Vital Signs Date Time Temp Pulse Resp B/P (MAP) Pulse Ox O2 Delivery O2 Flow Rate FiO2 02/23/20 07:00 97.8 80 16 152/88 (109) 97 Room Air 97.8 Labs: Labs: Laboratory Tests Test 02/22/20 11:42 02/22/20 16:22 02/22/20 20:34 02/23/20 06:33 Glucose (Fingerstick) 138 mg/dL (70-99) 126 mg/dL (70-99) 158 mg/dL (70-99) Sodium Level 137 mmol/L (136-145) Potassium Level 4.5 mmol/L (3.5-5.1) Chloride Level 105 mmol/L (98-107) Carbon Dioxide Level 21 mmol/L (21-32) Anion Gap 11 (6-14) Blood Urea Nitrogen 41 mg/dL (8-26) Creatinine 3.4 mg/dL (0.7-1.3) Estimated GFR (Cockcroft-Gault) 19.0 Glucose Level 76 mg/dL (70-99) Calcium Level 8.2 mg/dL (8.5-10.1) Test 02/23/20 07:17 Glucose (Fingerstick) 131 mg/dL (70-99) Allergies: Coded Allergies: No Known Drug Allergies (Unverified , 01/18/20) Medications: Current Medications Medications (Trade) Dose Ordered Sig/Jerri Route PRN Reason Start Time Stop Time Status Last Admin Dose Admin Bacitracin (Bacitracin Zinc Oint Pkt) 1 pkt BID TP 02/22/20 11:15 02/22/20 21:24 Acetaminophen/ Hydrocodone Bitart (Lortab 10/325) 1 tab PRN Q4HRS PRN PO PAIN 02/22/20 11:45 02/22/20 16:50 Multi-Ingredient Mouthwash/Gargle (Gi Cocktail) 20 ml 1X ONCE SWSW 02/22/20 15:00 02/22/20 15:01 DC 02/22/20 15:28 Imaging: Imaging: - PE: GEN: NAD HEENT: Atraumatic, PERRL LUNGS: CTAB HEART: RRR ABD: NABS, S/ND, vague right periumbilical discomfort - mild EXTREMITY: No edema SKIN: No rashes, no jaundice NEURO/PSYCH: A & O 3 A/P: A/P: Chest pain, dysphagia - has recurred/resolved during admission - similar symptoms w/ food bolus in the past Decreased appetite, weight loss Mild anemia CRC screen - none ?constipation CAD and PAD on Plavix and ASA, CKD, DM Chronic back pain -- Would benefit from EGD at some point w/ screening colonoscopy. Could also consider esophagram. Continue PPI. Check iron profile for completeness. STEVEN GALLEGOS Feb 23, 2020 09:04
[2020-02-23] MEDS: BACITRACIN TOPICAL OINT PACKET. TP SCH ×2 (09:09→21:45)
[2020-02-23] MEDS: CYCLOBENZAPRINE 10 MG TABLET. PO SCH ×3 (09:09→21:44)
--- NOTE | 2020-02-23 09:28 | PDOC ---
CARDIO Progress Notes Date and Time Date of Service 02/23/20 Time of Evaluation 0920 Subjective Subjective: No shortness of breath, No Palpitations, Other (continues to habe chest pain with eating/drinking) Vitals Vitals Vital Signs Date Time Temp Pulse Resp B/P (MAP) Pulse Ox O2 Delivery O2 Flow Rate FiO2 02/23/20 09:04 Room Air 02/23/20 09:03 80 152/88 02/23/20 07:00 97.8 16 97 97.8 Weight Weight [ ] Input and Output Intake and Output Intake and Output 02/23/20 07:00 Intake Total 2180 ml Output Total 140 ml Balance 2040 ml Intake Oral 2180 ml Drainage Total 140 ml # Voids 4 Laboratory Labs Laboratory Tests Test 02/22/20 11:42 02/22/20 16:22 02/22/20 20:34 02/23/20 06:33 Glucose (Fingerstick) 138 mg/dL (70-99) 126 mg/dL (70-99) 158 mg/dL (70-99) Sodium Level 137 mmol/L (136-145) Potassium Level 4.5 mmol/L (3.5-5.1) Chloride Level 105 mmol/L (98-107) Carbon Dioxide Level 21 mmol/L (21-32) Anion Gap 11 (6-14) Blood Urea Nitrogen 41 mg/dL (8-26) Creatinine 3.4 mg/dL (0.7-1.3) Estimated GFR (Cockcroft-Gault) 19.0 Glucose Level 76 mg/dL (70-99) Calcium Level 8.2 mg/dL (8.5-10.1) Test 02/23/20 07:17 Glucose (Fingerstick) 131 mg/dL (70-99) Physical Exam HEENT: Neck Supple W Full Motion Chest: Symmetric LUNGS: Clear to Auscultation Heart: RRR Abdomen: Soft N/T Extremities: No Edema, Other (s/p recent left great toe amputation- sutures removed ) Neurology: alert, oriented, follow commands Assessment Assessment 1. Chest pain, atypical. Most probably GI in nature. Feels like food stuck in esophagus 3. Nausea/vomiting; improved 4. Mild troponin elevation; peak 0.4. Most probably type II, demand ischemia. 5. CAD s/p PCI/stents with most recent at [facility] last year 6. ICM: prior EF 35%. Compensated 7. HTN: controlled 8. HLP; LDL 136 9. DM2; as per IM 10. LEATHA on CKD; Cr ^ 3.4 this am 11. PAD s/p recent left toe amputation. Sutures removed. Wound on right great toes as well. Vascular following. Outpatient arterial study/follow up planned. Recommendations Secondary prevention measures including DAPT with ASA/Plavix therapy Avoid nephrotoxins Okay to start IVFs. Monitor volume status given CMP. Consider outpatient ischemic evaluation Supportive care Justicifation of Admission Dx: Justifications for Admission: Justification of Admission Dx: Yes Acute Renal Failure: Serum Cr > 4mg/dL Cellulitis: Cellulitis KAMILA VILLATORO APRN Feb 23, 2020 09:28
[2020-02-23 10:39] VITALS: BP 162/97
[2020-02-23] MEDS: IV NORMAL SALINE 1000ML BAG 1,000 ML IV SCH ×2 (10:43→22:54)
--- NOTE | 2020-02-23 12:18 | NUR ---
SS following up with discharge planning. SS reviewed pt chart and discussed with pt RN. Pt is currently on room air. Discharge plan is to home when medically ready. IV fluids started today per Dr. Jimenez. SS will continue to follow for discharge planning.
--- NOTE | 2020-02-23 13:03 | PDOC ---
DATE OF SERVICE DATE: 02/23/20 TIME: 13:01 SUBJECTIVE ROS Stable OBJECTIVE Vital Signs Vital Signs Date Time Temp Pulse Resp B/P (MAP) Pulse Ox O2 Delivery O2 Flow Rate FiO2 02/23/20 10:39 98.0 88 18 162/97 (118) 97 Room Air 98.0 I & 0 Intake and Output 02/23/20 07:00 Intake Total 2180 ml Output Total 140 ml Balance 2040 ml Intake Oral 2180 ml Drainage Total 140 ml # Voids 4 PHYSICAL EXAM Physical Exam GENERAL: NAD HEENT: NAD.On RA NECK: Supple. LUNGS: CTA, Non labored HEART: S1, S2 regular. ABDOMEN: soft, NT EXTREMITIES: No LE edema , s/p amputation Lt big toe NEUROLOGIC: AXOX3 No focal neurologic No medina deficit. SKIN No Rash DIAGNOSIS/ASSESSMENT Assessment & Plan LEATHA -Vomiting/NSAID use Cr 4.2 at [facility] , restart IVF , dw RN Supportive care , i/o, avoid nephrotoxins CKD stage 4 - Suspect sec to HTN and CHF Baseline 2.6- 3.0 , has not been seen as OP in our office - has appt for Friday next week NSAId use - has been taking Ibuprofen 6-8 tabs /day for past few days despite our advise Chest Pain - per cardiology Hx of multiple LEATHA with Cr peaked at 5.2 Unremarkable US and UA in 2019 , CT scan at [facility] on 12/27/19- Unremarkable Kidneys Requiring HD at [facility] ,Hospitalized at [facility] Jan 2019 with BUN/Cr 130/ 6.5 Left first toe ulcer status post amputation 01/21/2020 History of osteomyelitis status post amputation Recent Hx of osteomyelitis Cardiomyopathy: EF 30-35% in 2019 HTN: BP high suspect due to Chronic Non compliance , he reports he has not been able to keep his meds down due to Vomiting DM2 : per PCP CAD: PCI/BMS to LAD/RCA, clinically stable. Anemia- Hgb stable, No indication for CELENA Chronic Noncompliance with meds, appointments COMMENT/RELEVANT DATA Meds Current Medications Medications (Trade) Dose Ordered Sig/Jerri Start Time Stop Time Status Last Admin Dose Admin Acetaminophen/ Hydrocodone Bitart (Lortab 10/325) 1 tab PRN Q4HRS PRN 02/22/20 11:45 02/22/20 16:50 1 TAB Amlodipine Besylate (Norvasc) 10 mg DAILY 02/21/20 12:30 02/23/20 09:03 10 MG Aspirin (Aspirin Chewable) 81 mg DAILY 02/21/20 12:30 02/23/20 09:01 81 MG Atorvastatin Calcium (Lipitor) 40 mg QHS 02/21/20 21:00 02/22/20 21:25 40 MG Bacitracin (Bacitracin Zinc Oint Pkt) 1 pkt BID 02/22/20 11:15 02/23/20 09:09 1 PKT Carvedilol (Coreg) 25 mg BIDWMEALS 02/21/20 12:30 02/23/20 09:03 25 MG Clonidine HCl (Catapres) 0.1 mg TID 02/21/20 14:00 02/22/20 14:58 DC 02/22/20 08:23 0.1 MG Clopidogrel Bisulfate (Plavix) 75 mg DAILYWBKFT 02/21/20 12:30 02/23/20 09:01 75 MG Cyclobenzaprine HCl (Flexeril) 10 mg TID 02/21/20 14:00 02/23/20 09:09 10 MG Enalaprilat (Vasotec Inj) 1.25 mg PRN Q6HRS PRN 02/21/20 01:00 02/21/20 09:05 1.25 MG Gabapentin (Neurontin) 300 mg BID 02/21/20 12:30 02/23/20 09:01 300 MG Hydralazine HCl (Apresoline) 100 mg TID 02/21/20 14:00 02/23/20 09:03 100 MG Isosorbide Mononitrate (Imdur) 60 mg DAILY 02/22/20 09:00 02/23/20 09:02 60 MG Morphine Sulfate (Morphine Sulfate) 4 mg PRN Q4HRS PRN 02/21/20 01:00 02/23/20 09:04 4 MG Multi-Ingredient Mouthwash/Gargle (Gi Cocktail) 20 ml 1X ONCE 02/22/20 15:00 02/22/20 15:01 DC 02/22/20 15:28 20 ML Ondansetron HCl (Zofran) 4 mg PRN Q4HRS PRN 02/21/20 01:00 02/21/20 12:30 4 MG Pantoprazole Sodium (Protonix) 40 mg BIDAC 02/21/20 16:30 02/23/20 09:01 40 MG Ropinirole HCl (Requip) 0.5 mg QHS 02/21/20 21:00 02/22/20 21:25 0.5 MG Sodium Chloride 1,000 ml @ 75 mls/hr [id number] 02/23/20 10:00 02/23/20 10:43 75 MLS/HR Temazepam (Restoril) 30 mg QHS 02/21/20 21:00 02/22/20 21:25 30 MG Trazodone HCl (Desyrel) 50 mg QHS 02/21/20 21:00 02/22/20 21:24 50 MG Lab Laboratory Tests Test 02/22/20 16:22 02/22/20 20:34 02/23/20 06:33 02/23/20 07:17 Glucose (Fingerstick) 126 mg/dL (70-99) 158 mg/dL (70-99) 131 mg/dL (70-99) Sodium Level 137 mmol/L (136-145) Potassium Level 4.5 mmol/L (3.5-5.1) Chloride Level 105 mmol/L (98-107) Carbon Dioxide Level 21 mmol/L (21-32) Anion Gap 11 (6-14) Blood Urea Nitrogen 41 mg/dL (8-26) Creatinine 3.4 mg/dL (0.7-1.3) Estimated GFR (Cockcroft-Gault) 19.0 Glucose Level 76 mg/dL (70-99) Calcium Level 8.2 mg/dL (8.5-10.1) Test 02/23/20 11:13 Glucose (Fingerstick) 124 mg/dL (70-99) Results All relevant outside records, renal labs, imaging studies, telemetry/EKG's were reviewed. Justicifation of Admission Dx: Justifications for Admission: Justification of Admission Dx: Yes Acute Renal Failure: Serum Cr > 4mg/dL Cellulitis: Cellulitis MARTIN ESTEVEZ MD Feb 23, 2020 13:03
[2020-02-23 15:06] VITALS: BP 113/65
--- NOTE | 2020-02-23 15:22 | NUR ---
Have reviewed documentation completed by editorial intern and made changes as needed.
[2020-02-23 19:00] VITALS: BP 122/84
[2020-02-23] MEDS: traZODone 50 MG TABLET. PO SCH (21:43)
[2020-02-23] MEDS: TEMAZEPAM 15 MG CAPSULE PO SCH (21:44)
[2020-02-23] MEDS: rOPINIRole 0.25 MG TABLET. PO SCH (21:44)
[2020-02-23] MEDS: ATORVASTATIN CALCIUM 40 MG TABLET. PO SCH (21:45)
[2020-02-23 23:08] VITALS: BP 157/102
[2020-02-24 02:58] VITALS: BP 144/93
[2020-02-24 05:37] LABS: HEMATOCRIT 31.4 % (39.0-53.0); HEMOGLOBIN 10.5 g/dL (13.0-17.5); RED BLOOD COUNT 3.81 x10^6/uL (4.30-5.70); RED CELL DISTRIBUTION WIDTH 16.2 % (11.5-14.5); WHITE BLOOD COUNT 6.5 x10^3/uL (4.0-11.0)
[2020-02-24 06:00] LABS: CALCIUM 8.1 mg/dL (8.5-10.1); CREATININE 2.9 mg/dL (0.7-1.3); GFR 22.9; POTASSIUM 4.7 mmol/L (3.5-5.1)
[2020-02-24 07:00] VITALS: BP 181/98
[2020-02-24] MEDS: ASPIRIN CHEWABLE 81 MG TABLET. PO SCH (08:57)
[2020-02-24] MEDS: GABAPENTIN 300 MG CAPSULE. PO SCH (08:57)
[2020-02-24] MEDS: CLOPIDOGREL BISULFATE 75 MG TABLET PO SCH (08:58)
[2020-02-24] MEDS: PANTOPRAZOLE 40 MG TABLET.DR. PO SCH ×2 (08:58→17:13)
[2020-02-24] MEDS: ISOSORBIDE MONONITRATE ER 30 MG TAB.ER.24H PO SCH (08:58)
[2020-02-24] MEDS: BACITRACIN TOPICAL OINT PACKET. TP SCH (08:58)
[2020-02-24] MEDS: amLODIPine BESYLATE 10 MG TABLET PO SCH (08:59)
[2020-02-24] MEDS: CYCLOBENZAPRINE 10 MG TABLET. PO SCH ×2 (08:59→14:11)
[2020-02-24] MEDS: CARVEDILOL 12.5 MG TABLET. PO SCH ×2 (08:59→17:13)
[2020-02-24] MEDS: HYDROcodone/APAP 10/325 1 TAB TABLET PO PRN ×2 (08:59→14:12)
[2020-02-24] MEDS ORDERED: MULTIVITAMIN with MINERAL TABLET. PO SCH (09:00)
--- NOTE | 2020-02-24 09:26 | PDOC ---
Date of Service: DATE: 02/24/20 TIME: 09:23 Subjective: Subjective: Ate well this morning. Had a little right-sided chest pain after eating yesterday - thinks some food got stuck but then passed. Objective: Objective: Nurse present - possible DC today. Vital Signs: Vital Signs Date Time Temp Pulse Resp B/P (MAP) Pulse Ox O2 Delivery O2 Flow Rate FiO2 02/24/20 09:00 89 144/93 02/24/20 08:59 Room Air 02/24/20 02:58 98.0 18 97 98.0 Labs: Laboratory Tests Test 02/23/20 11:13 02/23/20 16:37 02/23/20 20:46 02/24/20 05:00 Glucose (Fingerstick) 124 mg/dL 109 mg/dL 117 mg/dL White Blood Count 6.5 x10^3/uL Red Blood Count 3.81 x10^6/uL Hemoglobin 10.5 g/dL Hematocrit 31.4 % Mean Corpuscular Volume 82 fL Mean Corpuscular Hemoglobin 28 pg Mean Corpuscular Hemoglobin Concent 33 g/dL Red Cell Distribution Width 16.2 % Platelet Count 192 x10^3/uL Sodium Level 135 mmol/L Potassium Level 4.7 mmol/L Chloride Level 105 mmol/L Carbon Dioxide Level 20 mmol/L Anion Gap 10 Blood Urea Nitrogen 41 mg/dL Creatinine 2.9 mg/dL Estimated GFR (Cockcroft-Gault) 22.9 Glucose Level 94 mg/dL Calcium Level 8.1 mg/dL Test 02/24/20 07:56 Glucose (Fingerstick) 97 mg/dL PE: GEN: NAD LUNGS: CTAB HEART: RRR ABD: NABS, S/ND/NT NEURO/PSYCH: A & O 3 A/P: Atypical chest pain, dysphagia, h/o GERD ACD CAD and PAD on Plavix and ASA, CKD, DM -- DC per primary on PPI. Plan for outpt EGD and screening colonoscopy. Justicifation of Admission Dx: Justifications for Admission: Justification of Admission Dx: Yes Acute Renal Failure: Serum Cr > 4mg/dL Cellulitis: Cellulitis STEVEN GALLEGOS Feb 24, 2020 09:26
--- NOTE | 2020-02-24 09:41 | PN ---
DATE: 02/23/2020 SUBJECTIVE: The patient is resting, slightly propped up in bed, in no apparent distress, awake, alert. On questioning him, he denied any complaint. Nursing staff did not voice any concern. Apparently, his kidney function is worsening and he was started on IV fluid as per Nephrology team. When I examined him, he was seen by the past due accounts clerk for his atypical chest pain that felt to be likely due to gastroesophageal reflux disease. PHYSICAL EXAMINATION: GENERAL: When I examined him, he looked well and was clearly in no apparent respiratory distress . No jaundice, cyanosis or thyromegaly. No jugular venous distention. No lower limb edema. VITAL SIGNS: His heart rate was 88, blood pressure was 162/97, temperature 98, respiratory rate was 18 and oxygen saturation was 97%. The rest of clinical exam is stable. EXTREMITIES: He has sutures still on his left big toe as he underwent partial amputation last time. LABORATORY DATA: His chemistry this morning showed a serum sodium 137, potassium 4.5, chloride 105, bicarbonate 21, anion gap of 11, BUN 41, creatinine 3.4, estimated GFR was 19 mL per minute. His glucose was 76, calcium was 8.2. ASSESSMENT: 1. Chest pain, atypical, felt to be likely GI in nature. 2. Nausea and vomiting has resolved. 3. Mild troponin elevation, likely due to demand ischemia. 4. Coronary artery disease, status post percutaneous coronary intervention with stent deployment. 5. Ischemic cardiomyopathy, ejection fraction of 35%. 6. Hypertension seems to be on the lower end. 7. Hyperlipidemia. 8. Type 2 diabetes mellitus, seems to be well controlled. 9. Mdwop-hx-lmwawvt kidney injury, peripheral artery disease, status post recent left toe amputation. PLAN: Sutures removed. The wound care team is following. We will repeat his labs tomorrow and if his kidney function improves, he can be discharged. SAMM PRASAD MD DR: OH/jose JOB#: [id number] / [id number]
--- NOTE | 2020-02-24 10:59 | PDOC ---
DATE OF SERVICE DATE: 02/24/20 TIME: 10:55 SUBJECTIVE ROS Stable , no complaints OBJECTIVE Vital Signs Vital Signs Date Time Temp Pulse Resp B/P (MAP) Pulse Ox O2 Delivery O2 Flow Rate FiO2 02/24/20 09:00 89 144/93 02/24/20 08:59 Room Air 02/24/20 07:00 97.6 21 97 97.6 I & 0 Intake and Output 02/24/20 07:00 Intake Total 3060 ml Output Total 3200 ml Balance -140 ml Intake Oral 3060 ml Output Urine Total 3200 ml # Voids 1 PHYSICAL EXAM Physical Exam GENERAL: NAD HEENT: NAD.On RA NECK: Supple. LUNGS: CTA, Non labored HEART: S1, S2 regular. ABDOMEN: soft, NT EXTREMITIES: No LE edema , s/p amputation Lt big toe NEUROLOGIC: AXOX3 No focal neurologic No medina deficit. SKIN No Rash DIAGNOSIS/ASSESSMENT Assessment & Plan LEATHA -Vomiting/NSAID use Cr 4.2 at [facility] , Renal function improved with IVF, close to baseline Supportive care , , avoid nephrotoxins CKD stage 4 - Suspect sec to HTN and CHF Baseline 2.6- 3.0 , has not been seen as OP in our office due to his non compliance Scheduled fu appt in our office on 03/07 - informed pt and dw RN NSAId use -was taking Ibuprofen 6-8 tabs /day for past few days prior to admission Chest Pain - atypical per cardiology Hx of multiple LEATHA with Cr peaked at 5.2 Unremarkable US and UA in 2019 , CT scan at [facility] on 12/27/19- Unremarkable Kidneys Requiring HD at [facility] ,Hospitalized at [facility] Jan 2019 with BUN/Cr 130/ 6.5 Left first toe ulcer status post amputation 01/21/2020 History of osteomyelitis status post amputation Recent Hx of osteomyelitis Cardiomyopathy: EF 30-35% in 2019 HTN: BP high suspect due to Chronic Non compliance , he reports he has not been able to keep his meds down due to Vomiting DM2 : per PCP CAD: PCI/BMS to LAD/RCA, clinically stable. Anemia- Hgb stable, No indication for CELENA Chronic Noncompliance with meds, appointments COMMENT/RELEVANT DATA Meds Current Medications Medications (Trade) Dose Ordered Sig/Jerri Start Time Stop Time Status Last Admin Dose Admin Acetaminophen/ Hydrocodone Bitart (Lortab 10/325) 1 tab PRN Q4HRS PRN 02/22/20 11:45 02/24/20 08:59 1 TAB Amlodipine Besylate (Norvasc) 10 mg DAILY 02/21/20 12:30 02/24/20 08:59 10 MG Aspirin (Aspirin Chewable) 81 mg DAILY 02/21/20 12:30 02/24/20 08:57 81 MG Atorvastatin Calcium (Lipitor) 40 mg QHS 02/21/20 21:00 02/23/20 21:45 40 MG Bacitracin (Bacitracin Zinc Oint Pkt) 1 pkt BID 02/22/20 11:15 02/24/20 08:58 1 PKT Carvedilol (Coreg) 25 mg BIDWMEALS 02/21/20 12:30 02/24/20 08:59 25 MG Clonidine HCl (Catapres) 0.1 mg TID 02/21/20 14:00 02/22/20 14:58 DC 02/22/20 08:23 0.1 MG Clopidogrel Bisulfate (Plavix) 75 mg DAILYWBKFT 02/21/20 12:30 02/24/20 08:58 75 MG Cyclobenzaprine HCl (Flexeril) 10 mg TID 02/21/20 14:00 02/24/20 08:59 10 MG Enalaprilat (Vasotec Inj) 1.25 mg PRN Q6HRS PRN 02/21/20 01:00 02/21/20 09:05 1.25 MG Gabapentin (Neurontin) 300 mg BID 02/21/20 12:30 02/24/20 08:57 300 MG Hydralazine HCl (Apresoline) 100 mg TID 02/21/20 14:00 02/24/20 09:00 100 MG Isosorbide Mononitrate (Imdur) 60 mg DAILY 02/22/20 09:00 02/24/20 08:58 60 MG Morphine Sulfate (Morphine Sulfate) 4 mg PRN Q4HRS PRN 02/21/20 01:00 02/23/20 21:43 4 MG Multi-Ingredient Mouthwash/Gargle (Gi Cocktail) 20 ml 1X ONCE 02/22/20 15:00 02/22/20 15:01 DC 02/22/20 15:28 20 ML Multivitamins (Thera M Plus) 1 tab DAILY 10/1/20 09:00 02/24/20 08:57 1 TAB Ondansetron HCl (Zofran) 4 mg PRN Q4HRS PRN 02/21/20 01:00 02/21/20 12:30 4 MG Pantoprazole Sodium (Protonix) 40 mg BIDAC 02/21/20 16:30 02/24/20 08:58 40 MG Ropinirole HCl (Requip) 0.5 mg QHS 02/21/20 21:00 02/23/20 21:44 0.5 MG Sodium Chloride 1,000 ml @ 75 mls/hr [id number] 02/23/20 10:00 02/23/20 22:54 75 MLS/HR Temazepam (Restoril) 30 mg QHS 02/21/20 21:00 02/23/20 21:44 30 MG Trazodone HCl (Desyrel) 50 mg QHS 02/21/20 21:00 02/23/20 21:43 50 MG Lab Laboratory Tests Test 02/23/20 11:13 02/23/20 16:37 02/23/20 20:46 02/24/20 05:00 Glucose (Fingerstick) 124 mg/dL (70-99) 109 mg/dL (70-99) 117 mg/dL (70-99) White Blood Count 6.5 x10^3/uL (4.0-11.0) Red Blood Count 3.81 x10^6/uL (4.30-5.70) Hemoglobin 10.5 g/dL (13.0-17.5) Hematocrit 31.4 % (39.0-53.0) Mean Corpuscular Volume 82 fL (79-100) Mean Corpuscular Hemoglobin 28 pg (25-35) Mean Corpuscular Hemoglobin Concent 33 g/dL (31-37) Red Cell Distribution Width 16.2 % (11.5-14.5) Platelet Count 192 x10^3/uL (140-400) Sodium Level 135 mmol/L (136-145) Potassium Level 4.7 mmol/L (3.5-5.1) Chloride Level 105 mmol/L (98-107) Carbon Dioxide Level 20 mmol/L (21-32) Anion Gap 10 (6-14) Blood Urea Nitrogen 41 mg/dL (8-26) Creatinine 2.9 mg/dL (0.7-1.3) Estimated GFR (Cockcroft-Gault) 22.9 Glucose Level 94 mg/dL (70-99) Calcium Level 8.1 mg/dL (8.5-10.1) Test 02/24/20 07:56 Glucose (Fingerstick) 97 mg/dL (70-99) Results All relevant outside records, renal labs, imaging studies, telemetry/EKG's were reviewed. Justicifation of Admission Dx: Justifications for Admission: Justification of Admission Dx: Yes Acute Renal Failure: Serum Cr > 4mg/dL Cellulitis: Cellulitis MARTIN ESTEVEZ MD Feb 24, 2020 10:59
[2020-02-24 11:00] VITALS: BP 181/98
[2020-02-24] MEDS ORDERED: OXYC1TAB22 PO (11:05)
--- NOTE | 2020-02-24 11:17 | SNU/HH DC ---
DISCHARGE WITH HOME HEALTH DISCHARGE INFORMATION: Discharge Date: Feb 24, 2020 Final Diagnosis: atypical chest pain acute on chronic kidney injury vhronic systolic chf Condition on Discharge: Stable CODE STATUS: Code Status: Full HOME HEALTH: Face to Face: I certify this patient is under my care and that I, or a nurse practitioner or physician's housekeeper/laundry assistant working with me, had a face to face encounter that meets the physician face to face encounter requirements with this patient on 02/24/2020 Medical Complications: Other RN For Eval/Treatment: Yes Physical Therapy For: Evalulation/Treatment Occupational Therapy For: Evaluation/Treatment Pt Meets Homebound Status: Extreme weakness w/ amb. POST DISCHARGE ORDERS: Activity Instructions for Disc: Activity as tolerated Weight Bearing Status after Di: As tolerated Bathing Instructions: No Tub Bath until see DIET AFTER DISCHARGE: DELMAR Wound/Incision Care: Keep wound/cast CDI CHECKS AFTER DISCHARGE: Checks after discharge: Check blood press - daily, Check blood sugar, ac/hs CERTIFICATION STATEMENT: Certification Statement: Certification Statement: Based on the above finding, I certify that this patient is confined to the home and needs intermittent residential care, physical therapy and/or speech therapy, or continues to need occupational therapy.~ This patient is under my care, and I have initiated the establishment of the plan of care.~ This patient will be followed by myself or a community physician who will periodically review the plan of care. Home Meds Active Scripts Oxycodone/Apap 10-325 (PERCOCET 10-325 MG TABLET ) 1 Each Tablet, 1 TAB PO PRN Q4-6HRS PRN for svere pain MDD 6 Tablet(s) for 7 Days, #42 TAB 0 Refills Prov:SAMM PRASAD MD 02/24/20 Amlodipine Besylate (AMLODIPINE BESYLATE) 10 Mg Tablet, 10 MG PO DAILY for htn for 30 Days, #30 TAB Prov:SAMM PRASAD MD 01/06/20 Clonidine Hcl (CLONIDINE HCL) 0.1 Mg Tablet, 1 TAB PO TID for htn for 30 Days, #90 TAB 2 Refills Prov:SAMM PRASAD MD 01/06/20 Isosorbide Mononitrate (ISOSORBIDE MONONITRATE ER) 60 Mg Tab.er.24h, 1 TAB PO DAILY for htn, #30 TAB 5 Refills Prov:SAMM PRASAD MD 01/06/20 Hydralazine Hcl (HYDRALAZINE HCL) 100 Mg Tablet, 1 TAB PO TID for htn, #90 TAB 5 Refills Prov:SAMM PRASAD MD 01/06/20 Atorvastatin Calcium (ATORVASTATIN CALCIUM) 40 Mg Tablet, 40 MG PO QHS for 30 Days, #30 TAB Prov:VERITO TINAJERO MD 03/19/18 Clopidogrel Bisulfate (PLAVIX) 75 Mg Tablet, 75 MG PO DAILYWBKFT, #30 2 Refills Prov:ROSEANNE RAHMAN MD 03/04/15 Reported Medications Cyclobenzaprine Hcl (CYCLOBENZAPRINE HCL) 10 Mg Tablet, 1 TAB PO TID for , #90 TAB 02/21/20 Trazodone Hcl (TRAZODONE HCL) 50 Mg Tablet, 1 TAB PO QHS for sleep, #30 TAB 1 Refill 12/28/19 Gabapentin (GABAPENTIN ) 300 Mg Capsule, 300 MG PO BID for NEUROGENIC PAIN, CAP 12/28/19 Aspirin (Children's Aspirin) 81 Mg Tab.chew, 1 TAB PO DAILY for HTN for 30 Days, #30 TAB 0 Refills 12/28/19 Carvedilol (COREG) 25 Mg Tablet, 25 MG PO BIDWMEALS for CARDIAC, TAB 12/27/19 Ropinirole Hcl (ROPINIROLE HCL) 0.5 Mg Tablet, 0.5 MG PO HS for rls 12/27/19 Pantoprazole Sodium (PROTONIX) 20 Mg Tablet.dr, 2 TAB PO BID for GERD, #30 TAB 02/11/19 Temazepam (TEMAZEPAM) 30 Mg Capsule, 1 CAP PO QHS for insomnia, #30 CAP 1 Refill 02/11/19 Discontinued Scripts Morphine Sulfate (MORPHINE SULFATE ER) 15 Mg Tablet.er, 15 MG PO BID for Osteomyelitis for 6 Days, #12 TAB.SR Prov:PUMA ROSS MD 01/25/20 Cephalexin (CEPHALEXIN) 250 Mg Capsule, 500 MG PO QID for Cellulitis for 14 Days, #112 CAP Prov:PUMA ROSS MD 01/25/20 Hydrocodone Bit/Acetaminophen (HYDROCODONE-APAP 10-325 ) 1 Tab Tablet, 1 TAB PO PRN Q4HRS PRN for PAIN for 6 Days, #36 TAB 0 Refills Prov:PUMA ROSS MD 01/25/20 SAMM PRASAD MD Feb 24, 2020 11:17
--- NOTE | 2020-02-24 11:33 | DS ---
DATE OF DISCHARGE: 02/24/2020 HOSPITAL COURSE: The patient is a 54-year-old male patient, who was admitted with a complaint of chest pain that was atypical. He apparently was on nonsteroidal anti-inflammatory medication. He was also found to have 3 sets of cardiac enzymes that ruled out myocardial infarction. He was seen in consultation by the cloth finishing range back tender, billing control clerk, and hand candy molder. He was treated aggressively with IV fluid and his kidney function has improved back to baseline. His sutures on his left big toe were removed by the Wound Care team and as he has remained hemodynamically stable, a decision was made to discharge him home with home health and he has an appointment to follow with the billing control clerk's office on 03/07/2020. Unfortunately, he is very noncompliant with his care and medication. PHYSICAL EXAMINATION: GENERAL: When I saw him today, he was resting slightly propped up in bed, in no apparent respiratory distress. He was pale, no jaundice, cyanosis or thyromegaly. No jugular venous distention. No lower limb edema. VITAL SIGNS: His heart rate was 89, blood pressure was 144/93, temperature 97.6, respiratory rate was 21 and oxygen saturation was 97%. HEAD, EYES, EARS, NOSE AND THROAT: Showed normocephalic, atraumatic. NECK: Supple. HEART: Showed normal first and second heart sounds. No gallop or murmur. CHEST: Clear to auscultation. No crepitation or rhonchi. ABDOMEN: Distended, soft, nontender. NEUROLOGIC: He is awake, alert, responding appropriately. All cranial nerves are intact. He moves extremities without difficulty. His intake over the last 24 hours was 2180, output was 140. LABORATORY DATA: His lab work as of this morning showed a white cell count 6500; hemoglobin 10; hematocrit 30; MCV 82; and platelet count of 192,000. His chemistry this morning showed a serum sodium 135, potassium 4.7, chloride 105, bicarbonate 20, anion gap of 10, BUN 41, creatinine 2.9, estimated GFR was 22 mL per minute. His glucose 94 and calcium was 8.1. ASSESSMENT: 1. Chest pain, atypical, likely due to gastrointestinal. 2. Nausea and vomiting, has improved. 3. Mild troponin elevation, felt to be probably type 2 demand ischemia. 4. Coronary artery disease, status post percutaneous coronary intervention with stent deployment. 5. Ischemic cardiomyopathy with an ejection fraction of 35%. 6. Hypertension. 7. Hyperlipidemia. 8. Type 2 diabetes mellitus, seems to be reasonably controlled. 9. Acute on chronic kidney injury. Creatinine is down to 2.9. 10. Peripheral arterial disease, status post recent left toe amputation, sutures removed. The patient will be discharged home with home health to follow with his wound care and antihypertensive medication. The patient was advised to follow with the billing control clerk and pain management clinic. SAMM PRASAD MD DR: OH/jose JOB#: [id number] / [id number]
--- NOTE | 2020-02-24 12:02 | NUR ---
SS following up with discharge planning. SS reviewed pt chart and discussed with pt RN. Pt is from home and is currently on room air. Discharge orders for home healthcare received. SS met with pt and discussed home healthcare and home health options. Pt reported having no preference of company. SS phoned and faxed discharge orders and referral to [facility], ; fax [phone]. Pt's RN notified.
--- NOTE | 2020-02-24 12:37 | PDOC ---
CARDIO Progress Notes Date and Time Date of Service 02/24/20 Time of Evaluation 1002 Subjective Subjective: No Chest Pain, No shortness of breath, No Palpitations Vitals Vitals Vital Signs Date Time Temp Pulse Resp B/P (MAP) Pulse Ox O2 Delivery O2 Flow Rate FiO2 02/24/20 11:00 98.1 96 21 181/98 (125) 100 Room Air 98.1 Weight Weight [ ] Input and Output Intake and Output Intake and Output 02/24/20 07:00 Intake Total 3060 ml Output Total 3200 ml Balance -140 ml Intake Oral 3060 ml Output Urine Total 3200 ml # Voids 1 Laboratory Labs Laboratory Tests Test 02/23/20 16:37 02/23/20 20:46 02/24/20 05:00 02/24/20 07:56 Glucose (Fingerstick) 109 mg/dL (70-99) 117 mg/dL (70-99) 97 mg/dL (70-99) White Blood Count 6.5 x10^3/uL (4.0-11.0) Red Blood Count 3.81 x10^6/uL (4.30-5.70) Hemoglobin 10.5 g/dL (13.0-17.5) Hematocrit 31.4 % (39.0-53.0) Mean Corpuscular Volume 82 fL (79-100) Mean Corpuscular Hemoglobin 28 pg (25-35) Mean Corpuscular Hemoglobin Concent 33 g/dL (31-37) Red Cell Distribution Width 16.2 % (11.5-14.5) Platelet Count 192 x10^3/uL (140-400) Sodium Level 135 mmol/L (136-145) Potassium Level 4.7 mmol/L (3.5-5.1) Chloride Level 105 mmol/L (98-107) Carbon Dioxide Level 20 mmol/L (21-32) Anion Gap 10 (6-14) Blood Urea Nitrogen 41 mg/dL (8-26) Creatinine 2.9 mg/dL (0.7-1.3) Estimated GFR (Cockcroft-Gault) 22.9 Glucose Level 94 mg/dL (70-99) Calcium Level 8.1 mg/dL (8.5-10.1) Test 02/24/20 11:48 Glucose (Fingerstick) 93 mg/dL (70-99) Physical Exam HEENT: Neck Supple W Full Motion Chest: Symmetric LUNGS: Clear to Auscultation Heart: RRR Abdomen: Soft N/T Extremities: No Edema, Other (s/p recent left great toe amputation- sutures removed ) Neurology: alert, oriented, follow commands Assessment Assessment 1. Chest pain, atypical. Most probably GI in nature. on PPI 3. Nausea/vomiting; improved 4. Mild troponin elevation; peak 0.4. Most probably type II, demand ischemia. 5. CAD s/p PCI/stents with most recent at [facility] last year 6. ICM: prior EF 35%. Compensated 7. HTN: controlled 8. HLP; LDL 136 9. DM2; as per IM 10. LEATHA on CKD; Cr improved with IVFs 11. PAD s/p recent left toe amputation. Sutures removed. Wound on right great toes as well. Vascular following. Outpatient arterial study/follow up planned. Recommendations Secondary prevention measures including DAPT with ASA/Plavix therapy Avoid nephrotoxins Consider outpatient ischemic evaluation Encouraged compliance with f/u (patient has missed multiple recent appointments) Follow up with Dr. Erwin as scheduled Supportive care Justicifation of Admission Dx: Justifications for Admission: Justification of Admission Dx: Yes Acute Renal Failure: Serum Cr > 4mg/dL Cellulitis: Cellulitis KAMILA VILLATORO APRN Feb 24, 2020 12:37
[2020-02-24 15:00] VITALS: BP 160/95
[2020-02-24 17:13] VITALS: BP 160/95
--- NOTE | 2020-02-24 19:29 | NUR ---
Discharge Note: BERTRAND COLMENARES [address] Discharge instructions and discharge home medications reviewed with Patient and a copy given. All questions have been answered and understanding verbalized. The following instructions and handouts were given: diet, follow up, wound care. Discontinued lines and drains: IV removed. no lines present at discharge. Patient discharged to home. left by wheelchair to private vehicle.
== END 2020-02-24 18:25 | disposition home health service (06) | DRG 391 ==
LOC: 2 SOUTH 00:14
PROVIDERS: ADMIT Internal Medicine; ATTEND Internal Medicine
DX: K21.9 Gastro-esophageal reflux disease without esophagitis (principal); N17.0 Acute kidney failure with tubular necrosis; I13.0 Hypertensive heart and chronic kidney disease with heart failure and stage 1 through stage 4 chronic kidney disease, or unspecified chronic kidney disease; I42.8 Other cardiomyopathies; I50.22 Chronic systolic (congestive) heart failure; N18.4 Chronic kidney disease, stage 4 (severe); E11.22 Type 2 diabetes mellitus with diabetic chronic kidney disease; E11.51 Type 2 diabetes mellitus with diabetic peripheral angiopathy without gangrene; E11.69 Type 2 diabetes mellitus with other specified complication; E78.5 Hyperlipidemia, unspecified; F32.9 Major depressive disorder, single episode, unspecified; G25.81 Restless legs syndrome; G47.33 Obstructive sleep apnea (adult) (pediatric); G89.4 Chronic pain syndrome; I16.0 Hypertensive urgency; I25.10 Atherosclerotic heart disease of native coronary artery without angina pectoris; I25.5 Ischemic cardiomyopathy; L30.9 Dermatitis, unspecified; Z82.49 Family history of ischemic heart disease and other diseases of the circulatory system; Z86.73 Personal history of transient ischemic attack (TIA), and cerebral infarction without residual deficits; Z91.14 Patient's other noncompliance with medication regimen; Z95.5 Presence of coronary angioplasty implant and graft; M19.90 Unspecified osteoarthritis, unspecified site; Z79.899 Other long term (current) drug therapy
CPT/HCPCS: 36415; 80048; 80053; 80061; 80069; 82962; 83540; 83550; 83735; 83880; 84484; 85025; 85027; J2270; J2405; J3490; J7030; G0378

== ENCOUNTER → 2020-03-06 | Outpatient (CLI) | payer MEDICAID ==
[2020-02-24 17:13] VITALS: BP 160/95
[~2020-03-06] MED LIST changes: +AMLO-187 PO; -AMLO10TA8 PO; -HYDR-2161 PO; +HYDR-3072 PO; +OXYC1TAB22 PO
--- NOTE | 2020-03-06 22:26 | RAD ---
EXAM: LEFT FOOT 3 VIEWS. HISTORY: Infection. COMPARISON: 01/18/2020 FINDINGS: Three views of the left foot are obtained. There is transmetatarsal amputation of the first ray. The resection margin is not healed and appears mildly irregular. There is surrounding periosteal reaction. There is amputation of the second ray through the distal aspect of the proximal phalanx. There is moderate glandularity at the resection margin without a clear cortical erosion. No fractures are identified. 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 There is a moderate to large plantar calcaneal spur. There are diffuse atherosclerotic calcifications. IMPRESSION: 1. Findings consistent with osteomyelitis along the first metatarsal resection margin, unless amputation is recent. Electronically signed by: Jeremy Kaplan MD (03/06/2020 10:23 PM) [facility]
== END ==
LOC: RAD 16:18
PROVIDERS: ATTEND Registered Nurse Medical-Surgical
DX: S98.112A Complete traumatic amputation of left great toe, initial encounter (principal); M86.8X7 Other osteomyelitis, ankle and foot; M77.32 Calcaneal spur, left foot; M19.072 Primary osteoarthritis, left ankle and foot; I70.292 Other atherosclerosis of native arteries of extremities, left leg; X58.XXXA Exposure to other specified factors, initial encounter; Y93.89 Activity, other specified; Y92.89 Other specified places as the place of occurrence of the external cause; Y99.8 Other external cause status
CPT/HCPCS: 73630